=== PATIENT | female | born 2000 | race Caucasian/White ===

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

== ENCOUNTER 2019-08-30 14:56 | Emergency (ER) | payer MEDICAID, SELFPAY ==
[2019-08-30 14:57] VITALS: BP 122/36; PULSE 89; RESP 16; TEMP 36.6; O2SAT 97; BMI 32.8
--- NOTE | 2019-08-30 15:39 | CT_ITS ---
STUDY: CT BRAIN WITHOUT CONTRAST REASON FOR EXAM: Female, 19 years old. HEADACHE X3 MONTHS W/ VISUAL CHANGES RADIATION DOSAGE (If Supplied By Facility): CTDIvol = ( 44.99 ) mGy, DLP = ( 745.49 ) mGycm TECHNIQUE: Transaxial CT imaging of the brain was performed without administration of intravenous contrast material. Individualized dose optimization techniques were used for this CT. COMPARISON: No relevant priors. FINDINGS: Normal soft tissue structures. Normal calvarium. Normal size ventricles and extra-axial spaces for the patient''s age. Normal white matter tracts of the cerebral hemispheres. Normal basal ganglia and thalami. Normal brainstem. Normal cerebellum. There is no intracranial hemorrhage. There are no findings of an acute ischemic infarction. Normal visualized paranasal sinuses. CT/Brain/Head without Contrast IMPRESSION: Normal unenhanced CT scan of the brain. Electronically Signed: Soto Carbone DO at 16:34 EST Tel , Service support ,
--- NOTE | 2019-08-30 15:39 | EKG12_ITS ---
Test Reason : HEADACHE Blood Pressure : / mmHG Vent. Rate : 064 BPM Atrial Rate : 064 BPM P-R Int : 184 ms QRS Dur : 084 ms QT Int : 384 ms P-R-T Axes : 007 058 026 degrees QTc Int : 396 ms Normal sinus rhythm with sinus arrhythmia Normal ECG Confirmed by AUGUSTINE VÁZQUEZ, ANT ([id number]), city editor ALONDRA LYON ([id number]) on 09/01/2019 9:51:15 AM Referred By: LYNDON Confirmed By:ANT BRADSHAW MD
--- NOTE | 2019-08-30 15:41 | ED.VISSUMM ---
- ER Visit Summary Date of Service: 08/30/19 Chief Complaint: Headache History of Present Illness: The patient is a 19 F with a headache. Symptoms have been going on for about 3 months. Symptoms are daily. Pain is worse in the left frontal region. Worse with light and noise. Sometimes she feels like her left eye is popping out and she sees floating things. She tried [id number] medications with no improvement. Patient also states that sometimes she wakes up feeling short of breath. She has no history of heart or lung disease. No history of blood clots. Not currently . She has no symptoms during the day. No other exertional symptoms. Physical Examination: Afebrile and vital signs unremarkable. HEENT exam including funduscopic exam within normal limits. Neck is nontender with good range of motion. Heart regular rate and rhythm with no murmurs. Lungs clear. Extremities nontender with no edema. Skin appears normal. Test Results: CT brain and EKG pending. Emergency Department Course and Treatment: Patient likely has a migraine. I do not believe her nighttime respiratory symptoms are related directly to the headache. She may have sleep apnea and this could be contributing to headache. We will check an EKG. Lungs are clear. PERC negative. Will treat with migraine meds. EKG showed sinus rhythm at a rate of 69. No sign of ischemia or infarction. CT brain negative. On reevaluation, patient is feeling better. She will be discharged to follow-up with her PCP. Treatment Plan: As above Disposition: Discharge Impression: 1. Headache This note was generated with [employer] dictation software. It may contain incorrect words, spelling, and punctuation that were not noted in review of the chart prior to signing ED Disposition - Plan for ED Patient: Referrals: Denver Gill MD [Primary Care Provider] -
[2019-08-30] MEDS: DiphenhydrAMINE 50 MG/ML Syringe 25 MG IV (15:51)
[2019-08-30] MEDS: Ketorolac 30 MG/ML Syringe IV (15:51)
[2019-08-30] MEDS: 0.9% Normal Saline 1,000 ML 999 ML IV (15:51)
--- NOTE | 2019-08-30 17:22 | ED.DEP ---
ED Disposition - Plan for ED Patient: Instructions: HEADACHE, Unspecified Referrals: Denver Gill MD [Primary Care Provider] -
== END 2019-08-30 17:36 | disposition home or self-care (01) ==
LOC: ED 15:49
PROVIDERS: Emergency Provider Emergency Medicine; PCP Family Medicine
DX: R51 Headache (principal); R06.02 Shortness of breath; Z72.0 Tobacco use
CPT/HCPCS: 70450; 93005; 96361; 96374; 96375; 99283; J7030

== ENCOUNTER 2019-09-01 18:03 | Emergency (ER) | payer MEDICAID, SELFPAY ==
[2019-09-01 18:04] VITALS: BP 153/74; PULSE 97; RESP 17; TEMP 37.1; O2SAT 97; BMI 32.6
[2019-09-01 19:35] LABS: Absolute Lymphocyte Count 2.48 X10^3/uL (0.83-4.51); Absolute Neutrophil Count 8.2 X10^3/uL (2.0-7.7); Basophil% 0.8 % (0-1); Eosinophil# 0.56 X10^3/uL; Eosinophils% 4.6 % (0-5); Hemoglobin 13.8 g/dL (12.0-15.0); Lymphocyte # 2.48 X10^3/ul (4.0); Lymphocyte % 20.3 % (19-41); Mean Corp Hgb Conc 32.9 g/dL (32-36); Mean Corpuscular Hgb 30.5 pg (27.0-32.0); Mean Corpuscular Volume 92.7 fL (81-99); Mean Platelet Vol. 10.6 fl (6.2-12.0); Monocyte# 0.84 X10^3/uL; Monocyte% 6.9 % (0-10); NRBC Flagged by Analyzer 0 % (0-5); Neutrophil # 8.19 X10^3/uL (2.7-7.7); Platelet Count 288 K/mm3 (150-450); RBC Distribution Width CV 12.1 % (11.6-14.6); RBC Distribution Width SD 41.3 fl (35.1-43.9); Red Blood Count 4.53 M/mm3 (4.2-5.4); White Blood Count 12.2 K/mm3 (4.4-11.0)
[2019-09-01] MEDS: Metoclopramide 10 MG/2 ML Vial IV (19:43)
[2019-09-01] MEDS: DiphenhydrAMINE 50 MG/ML Syringe 25 MG IV (19:43)
[2019-09-01] MEDS: Ketorolac 30 MG/ML Syringe IV (19:43)
[2019-09-01] MEDS: 0.9% Normal Saline 1,000 ML 999 ML IV (19:43)
[2019-09-01 19:51] LABS: ALB/GLOB Ratio 0.9 RATIO (0.9-2.4); AST(SGOT) 12 U/L (15-37); Alanine Aminotransfer ALT/SGPT 24 U/L (13-56); Albumin, Serum 3.5 g/dL (3.2-5.0); Alkaline Phosphatase 86 U/L (45-117); Anion Gap 6 (5-15); BUN 11 mg/dL (7-18); BUN/Creat Ratio 14.6 RATIO (10-20); Calcium,Total 8.8 mg/dL (8.5-10.1); Chloride 111 mmol/L (98-107); Creatinine, Serum 0.75 mg/dL (0.55-1.02); EST Glomerular Filtration Rate 104 mL/min (>60); Est Glom Filt Rate - Afr Amer 126 mL/min (>60); Estimated Creatinine Clearance 98.98 ml/min; Globulin 3.7 g/dL (2.2-4.2); Glucose 90 mg/dL (74-106); Potassium 3.5 mmol/L (3.5-5.1); Protein, Total 7.2 g/dL (6.4-8.2); Sodium Level 142 mmol/L (136-145)
--- NOTE | 2019-09-01 20:51 | ED.VISSUMM ---
- ER Visit Summary Date of Service: 09/01/19 Chief Complaint: Headache History of Present Illness: The patient is a 19 F who presents with a headache that began 2 days ago. Patient was seen here at that time and had a head CT. Patient states it was normal and she was feeling better and was discharged home. Patient states her headache has returned. Patient states the pain is over the frontal area. Patient states the pain is worse with light and with loud noises. Patient admits to some nausea and vomiting. Patient admits to a fever of 102.4 at home. Patient denies any neck pain or back pain. Patient denies any paresthesias or weakness. Physical Examination: Vital signs are stable. Patient is afebrile. Patient is in no acute distress. Pupils are equal, round, and reactive to light bilaterally. Extraocular muscles are intact. Conjunctiva is clear. Oral mucosa is pink and moist. Neck is supple. Trachea is midline. There is no JVD. There is full range of motion. There is no meningismus. Heart was regular rate and rhythm. Lungs are clear and equal bilaterally. Abdomen is soft. Bowel sounds are normal. There is no tenderness. Cranial nerves II through XII are intact. There are no focal motor or sensory deficits noted. Test Results: CBC shows a slight leukocytosis of 12.2. Comprehensive metabolic profile was within normal limits. Influenza swab was negative. Emergency Department Course and Treatment: Patient was given IV fluids, Reglan, Benadryl, and Toradol here. Patient felt better on reevaluation. Patient was instructed to rest in a dark quiet room. Patient was instructed to follow-up with her primary care physician in 5 to 7 days. Patient understood and was agreeable with the plan. All questions were answered. Disposition: Discharge home Impression: Headache This note was generated with [employer] dictation software. It may contain incorrect words, spelling, and punctuation that were not noted in review of the chart prior to signing ED Disposition - Plan for ED Patient: Disposition: Home or Assisted Living Diagnosis: Headache Instructions: HEADACHE, Unspecified Referrals: Denver Gill MD [Primary Care Provider] - 3-5 Days
[2019-09-01 21:04] VITALS: BP 122/86; PULSE 75; RESP 15; O2SAT 97
== END 2019-09-01 21:00 | disposition home or self-care (01) ==
PROVIDERS: Emergency Provider Emergency Medicine; PCP Family Medicine
DX: R51 Headache (principal)
CPT/HCPCS: 80053; 85025; 87804; 96361; 96374; 96375; 99283; J7030; A4216

== ENCOUNTER 2020-05-19 17:47 | Emergency (ER) | payer MEDICAID, SELFPAY ==
[2020-05-19 17:48] VITALS: BP 137/72; PULSE 102; RESP 17; TEMP 36.4; O2SAT 99; BMI 28.7
--- NOTE | 2020-05-19 17:54 | ED.VIS.GEN ---
History of Present Illness Chief Complaint: Vag Bld, Preg Informant: Patient Onset: Today Context: Sudden Onset Current Severity: Mild Maximum Severity: Moderate Narrative: The patient is a 19-year-old female who is at approximately 14 weeks gestation that presents to the emergency department with lower abdominal cramping and vaginal bleeding. Patient states she is had some cramping for the past 4 days. She states that today, she has had some scant bleeding when she urinated. It is since resolved. She has had prior miscarriage in the past. She has had documented intrauterine with this . Her blood type is a positive. She denies any fevers or chills. She denies any abdominal trauma. Prior similar symptoms: No Recent Illness/Hospitalization: No Past Medical History - Allergies and Home Meds Allergies/Adverse Reactions: Allergies No Known Allergies Allergy (Verified 05/19/20 17:48) Primary Care Physician: Denver Gill MD [Primary Care Provider] - Prior records reviewed: Yes Past Medical History: None Surgical History: noncontributory Smoking Status: Current every day smoker Review of Systems General: Denies: Chills, Fever, Sweats Eyes: Denies: Visual changes - bilaterally, Diplopia ENT: Denies: Rhinorrhea, Sore throat Cardiovascular: Denies: Chest pain, Palpitations Respiratory: Denies: Dyspnea, Cough, Dyspnea on exertion Gastrointestinal: Denies: Abdominal pain, Nausea, Vomiting, Diarrhea, Melena, Hematochezia Genitourinary: Denies: Dysuria, Hematuria, Frequency Musculoskeletal: Denies: Back pain, Extremity Pain Skin: Denies: Rash, Wounds Neurological: Denies: Headache, Weakness, Numbness Physical Exam Vital Signs/Narrative: Vital Signs Temp Pulse Resp BP Pulse Ox 05/19/20 17:48 97.5 F L 102 H 17 137/72 H 99 Inital Vital Signs reviewed: Yes General: Well nourished, Well developed, No Acute Distress Head: Normocephalic, Atraumatic Eyes: Perrl, EOMI ENT: Moist mucous membranes, No rhinorrhea Neck: Supple, Nontender Cardiovascular: Regular rate, Regular rhythm, No murmurs Respiratory: No distress, CTA bilaterally, Chest nontender Abdomen: Soft, Nontender, Nondistended, Normal bowel sounds Back: Nontender, Normal Inspection Extremities: Nontender, No edema Skin: Normal color, No rash Neurological: Alert, Oriented x3, Cranial nerves II-XII grossly intact, Normal Strength, Normal Sensation Psychological: Normal affect, Normal Mood Diagnostic/Tx/Re-eval Abnormal Lab Results 05/19/20 18:10 Urine Color Yellow Urine Clarity Sl. Cloudy Urine pH 5.0 Ur Specific [place] 1.025 Urine Protein Negative Urine Glucose (UA) Normal Urine Ketones 5 H Urine Occult Blood 25 H Urine Nitrite Negative Urine Bilirubin Negative Urine Urobilinogen Normal Ur Leukocyte Esterase 500 H Urine RBC 0-5 SEEN Urine WBC 10-25 SEEN Ur Squamous Epith Cells 0-5 SEEN Urine Bacteria RARE Urine Mucus 0 SEEN - Medical Decision Making Patient presents with 4 days of suprapubic pain. She now has scant vaginal bleeding that is since resolved. She is approximately 15 weeks gestation. Bedside ultrasound was performed. It showed single live intrauterine . There was good activity. heart rates were in the 140s and reactive. Urine does show some evidence of infection. Quant was added. I did discuss the case with Dr. Shannon, on-call for [facility]. She is comfortable with plan for outpatient follow-up. The patient was counseled that with bleeding in , there was concern for miscarriage, but based on her ultrasound I do feel that she is safe for outpatient follow-up. Impression 1. Vaginal bleeding in 2. Cystitis ED Disposition - Plan for ED Patient: Instructions: ED Possible Miscarriage Threatened Prescriptions: Nitrofurantoin Macrocrystals [Macrobid] 100 mg PO Q12 #14 cap Prescription Printed Referrals: Mary Shannon MD [STAFF PHYSICIAN] -
[2020-05-19 18:16] LABS: Mucous, Urine 0 SEEN /hpf (<or=2+)
[2020-05-19 18:18] LABS: Color, Urine Yellow (Yellow); Glucose, Dipstick Normal (Normal); Ketone-Dipstick 5 mg/dl (Negative); Leukocyte Esterase-Dipstick 500 /ul (Negative); Nitrite-Dipstick Negative (Negative); Occult Blood-Urine 25 /ul (Negative); Protein-Dipstick Negative (Negative); Specific Gravity, Urine 1.025 (1.002-1.030); Urine Bilirubin Dipstick Negative (Negative); Urine Clarity Sl. Cloudy (Clear); Urine Urobilinogen Normal (Normal)
[2020-05-19 18:28] LABS: Bacteria RARE /hpf (None Seen); Red Blood Cells-Urine 0-5 SEEN /hpf (0-5); Squamous Epithelial Cells - UA 0-5 SEEN /hpf (5-10); White Blood Cells 10-25 SEEN /hpf (0-5)
[2020-05-19] MEDS: Nitrofurantoin Macrocrystals 100 MG Capsule PO (18:55)
[2020-05-19 18:57] VITALS: BP 101/63; PULSE 81; RESP 17; O2SAT 99
--- NOTE | 2020-05-19 18:57 | ED.RN ---
IV DC'ED, CATHETER INTACT, SMALL GAUZE DRESSING PLACED. DISCHARGE INSTRUCTIONS GIVEN TO AND REVIEWED WITH PATIENT, PATIENT DENIES QUESTIONS OR CONCERNS AND VOICES UNDERSTANDING OF DISCHARGE INSTRUCTIONS. PT AMBULATES OUT OF ROOM WITHOUT DIFFICULTY.
== END 2020-05-19 18:58 | disposition home or self-care (01) ==
LOC: ED 18:46
PROVIDERS: Emergency Provider Emergency Medicine; PCP Family Medicine
DX: O20.9 Hemorrhage in early pregnancy, unspecified (principal); O23.12 Infections of bladder in pregnancy, second trimester; O99.332 Smoking (tobacco) complicating pregnancy, second trimester; Z3A.14 14 weeks gestation of pregnancy
CPT/HCPCS: 81001; 84702; 99282; A4216

== ENCOUNTER 2020-07-03 19:49 | Emergency (ER) | payer MEDICAID, SELFPAY ==
[2020-07-03 19:49] VITALS: BP 125/65; PULSE 102; RESP 19; TEMP 35.9; O2SAT 99; BMI 29.1
--- NOTE | 2020-07-03 20:24 | ED.DCSUM_ITS ---
History of Present Illness Chief Complaint: Cough Informant: Patient Narrative: 20-year-old female on her fourth at approximately 21 weeks sees [facility]ESS SERVICES LIBRARIAN. She tells me that she has had a frontal headache for the past 10 days. It is not positional. There is no neck pain. No fevers. She is developed a cough for the past 5 days. No rhinorrhea no ear pain. She notes a bit of a sore throat today. No diarrhea no shortness of breath. Cough is nonproductive. No rashes. Patient denies any complications with this so far. She tells me that she spoke to her ACCESS SERVICES LIBRARIAN's office and they told her to come to emergency and be screened for Covid. Past Medical History - Allergies and Home Meds Allergies/Adverse Reactions: Allergies No Known Allergies Allergy (Verified 05/19/20 17:48) Primary Care Physician: Denver Gill MD [Primary Care Provider] - Prior records reviewed: Yes Past Medical History: None Surgical History: noncontributory Smoking Status: Never smoker Drugs: None Review of Systems General: Denies: Chills, Fever, Sweats Eyes: Denies: Visual changes - bilaterally, Diplopia ENT: Reports: Sore throat. Denies: Rhinorrhea Cardiovascular: Denies: Chest pain, Palpitations Respiratory: Reports: Cough. Denies: Dyspnea, Dyspnea on exertion Gastrointestinal: Denies: Abdominal pain, Nausea, Vomiting, Diarrhea, Melena, Hematochezia Genitourinary: Denies: Dysuria, Hematuria, Frequency Musculoskeletal: Denies: Back pain, Extremity Pain Skin: Denies: Rash, Wounds Neurological: Reports: Headache. Denies: Weakness, Numbness Physical Exam Vital Signs/Narrative: Vital Signs Temp Pulse Resp BP Pulse Ox 07/03/20 19:49 96.7 F L 102 H 19 H 125/65 H 99 Inital Vital Signs reviewed: Yes General: Well nourished, Well developed, No Acute Distress Head: Normocephalic, Atraumatic Eyes: Perrl, EOMI ENT: Moist mucous membranes, No rhinorrhea Neck: Supple, Nontender Cardiovascular: Regular rate, Regular rhythm, No murmurs Respiratory: No distress, CTA bilaterally, Chest nontender Abdomen: Soft, Nontender, Nondistended, Normal bowel sounds Back: Nontender, Normal Inspection Extremities: Nontender, No edema Skin: Normal color, No rash Neurological: Alert, Oriented x3, Cranial nerves II-XII grossly intact, Normal Strength, Normal Sensation Psychological: Normal affect, Normal Mood Diagnostic/Tx/Re-eval Laboratory Last Values Urine Color Yellow (Yellow) 07/03/20 20:29 Urine Clarity Sl. Cloudy (Clear) 07/03/20 20:29 Urine pH 6.5 (5.0 - 8.0) 07/03/20 20: Ur Specific [place] 1.010 (1.002-1.030) 07/03/20 20:29 Urine Protein Negative mg/dl (Negative) 07/03/20 20:29 Urine Glucose (UA) Normal mg/dl (Normal) 07/03/20 20: Urine Ketones Negative mg/dl (Negative) 07/03/20 20: Urine Occult Blood 10 /ul (Negative) H 07/03/20 20:29 Urine Nitrite Negative (Negative) 07/03/20 20: Urine Bilirubin Negative mg/dL (Negative) 07/03/20 20: Urine Urobilinogen Normal mg/dl (Normal) 07/03/20 20:29 Ur Leukocyte Esterase 500 /ul (Negative) H 07/03/20 20:29 Urine RBC 0-5 SEEN /hpf (0-5) 07/03/20 20: Urine WBC 50-100 SEEN /hpf (0-5) 07/03/20 20:29 Ur Squamous Epith Cells 0-5 SEEN /hpf (5-10) 07/03/20 20: Amorphous Sediment 1+ URATE 07/03/20 20: Urine Bacteria RARE /hpf (None Seen) 07/03/20 20: Urine Mucus 0 SEEN /hpf (<or=2+) 07/03/20 20:29 - Medical Decision Making Urine shows some white blood cells and rare bacteria. She is asymptomatic and some risk of this for culture. Her COVID-19 test is negative. Patient be discharged home with supportive care return if worsening or concerns ED Disposition - Plan for ED Patient: Disposition: Home or Assisted Living Diagnosis: Second trimester , URI (upper respiratory infection) Instructions: ED URI, Viral, No Abx (Adult) Referrals: Denver Gill MD [Primary Care Provider] - As Needed
[2020-07-03 20:37] LABS: Mucous, Urine 0 SEEN /hpf (<or=2+)
[2020-07-03 20:55] LABS: Color, Urine Yellow (Yellow); Glucose, Dipstick Normal (Normal); Ketone-Dipstick Negative (Negative); Leukocyte Esterase-Dipstick 500 /ul (Negative); Nitrite-Dipstick Negative (Negative); Occult Blood-Urine 10 /ul (Negative); Protein-Dipstick Negative (Negative); Urine Bilirubin Dipstick Negative (Negative); Urine Clarity Sl. Cloudy (Clear); Urine Urobilinogen Normal (Normal); Urine pH 6.5 (5.0 - 8.0)
[2020-07-03 21:10] LABS: Amorphous Sediment 1+ URATE; Bacteria RARE /hpf (None Seen); Red Blood Cells-Urine 0-5 SEEN /hpf (0-5); Squamous Epithelial Cells - UA 0-5 SEEN /hpf (5-10); White Blood Cells 50-100 SEEN /hpf (0-5)
[2020-07-03 22:13] VITALS: BP 120/60; PULSE 97; RESP 18; O2SAT 99
== END 2020-07-03 22:14 | disposition home or self-care (01) ==
PROVIDERS: Emergency Provider Emergency Medicine; PCP Family Medicine
DX: O99.512 Diseases of the respiratory system complicating pregnancy, second trimester (principal); J06.9 Acute upper respiratory infection, unspecified; Z3A.21 21 weeks gestation of pregnancy
CPT/HCPCS: 81001; 87086; 87088; 87426; 99282

== ENCOUNTER 2020-08-27 02:00 | Outpatient (CLI) | payer MEDICAID, SELFPAY ==
[2020-08-27 02:23] VITALS: BP 114/68; PULSE 90; PULSE 93; TEMP 36.3; O2SAT 99
[2020-08-27 02:31] VITALS: BMI 31.5
[2020-08-27 03:04] LABS: Bacteria 0 SEEN /hpf (None Seen); Red Blood Cells-Urine 0 SEEN /hpf (0-5)
[2020-08-27 03:11] LABS: Absolute Lymphocyte Count 2.97 X10^3/uL (0.83-4.51); Absolute Neutrophil Count 12.3 X10^3/uL (2.0-7.7); Basophil# 0.09 X10^3/uL; Basophil% 0.5 % (0-1); Eosinophil# 0.36 X10^3/uL; Eosinophils% 2.1 % (0-5); Lymphocyte # 2.97 X10^3/ul (4.0); Lymphocyte % 17.4 % (19-41); Mean Corp Hgb Conc 32.4 g/dL (32-36); Mean Corpuscular Hgb 30.6 pg (27.0-32.0); Mean Corpuscular Volume 94.7 fL (81-99); Mean Platelet Vol. 10.1 fl (6.2-12.0); Monocyte# 0.97 X10^3/uL; Monocyte% 5.7 % (0-10); NRBC Flagged by Analyzer 0 % (0-5); Platelet Count 253 K/mm3 (150-450); RBC Distribution Width CV 11.9 % (11.6-14.6); RBC Distribution Width SD 41.6 fl (35.1-43.9); Red Blood Count 3.59 M/mm3 (4.2-5.4); White Blood Count 17.1 K/mm3 (4.4-11.0)
[2020-08-27 03:14] LABS: Color, Urine Yellow (Yellow); Glucose, Dipstick Normal (Normal); Ketone-Dipstick 15 mg/dl (Negative); Leukocyte Esterase-Dipstick 100 /ul (Negative); Nitrite-Dipstick Negative (Negative); Occult Blood-Urine Negative /ul (Negative); Protein-Dipstick 15 mg/dl (Negative); Specific Gravity, Urine 1.025 (1.002-1.030); Urine Bilirubin Dipstick Negative (Negative); Urine Clarity Sl. Cloudy (Clear); Urine Urobilinogen 1 mg/dl (Normal)
[2020-08-27 03:25] LABS: Prothrombin Time (Protime)PT. 12.8 SECONDS (11.7-14.9)
[2020-08-27 03:26] LABS: Mucous, Urine 2+ /hpf (<or=2+); Squamous Epithelial Cells - UA 25-50 SEEN /hpf (5-10); White Blood Cells 5-10 SEEN /hpf (0-5)
[2020-08-27 03:26] LABS: Partial Thromboplast Time 29.4 Seconds (24.1-36.2)
[2020-08-27 03:43] LABS: Fibrinogen 538 mg/dl (203-444)
[2020-08-27 03:46] LABS: Fetal Fibronectin Negative
[2020-08-27] MEDS: Betamethasone/Betamethasone 30 MG/5 ML Vial 12 MG IM (04:38)
--- NOTE | 2020-08-31 13:18 | OB.TRI.HP_ITS ---
History of Present Illness Date of Service: 08/27/20 Was patient seen by the physician?: No Reason For Visit: CRAMPING AND BLEEDING Final JERRY Source: US <20 weeks Allergies No Known Allergies Allergy (Verified 08/28/20 10:35) Laboratory Studies: Laboratory Tests 08/27/20 08/27/20 08/27/20 Range/Units 02:55 02:41 02:41 WBC (4.4-11.0) K/mm3 RBC (4.2-5.4) M/mm3 Hgb (12.0-15.0) g/dL Hct (37-47) % MCV (81-99) fL MCH (27.0-32.0) pg MCHC (32-36) g/dL RDW Std Deviation (35.1-43.9) fl RDW Coeff of Bairon (11.6-14.6) % Plt Count (150-450) K/mm3 MPV (6.2-12.0) fl Immature Gran % (Auto) (0.0-0.9) % Neut % (Auto) (47-70) % Lymph % (Auto) (19-41) % [place] % (Auto) (0-10) % Eos % (Auto) (0-5) % Baso % (Auto) (0-1) % Absolute Neuts (auto) (2.0-7.7) X10^3/uL Absolute Lymphs (auto) (0.83-4.51) X10^3/uL Nucleated RBC % (0-5) % PT 12.8 (11.7-14.9) SECONDS INR 1.0 APTT 29.4 (24.1-36.2) Seconds Fibrinogen 538 H (203-444) mg/dl Urine Color Yellow (Yellow) Urine Clarity Sl. Cloudy (Clear) Urine pH 5.0 (5.0 - 8.0) Ur Specific [place] 1.025 (1.002-1.030) Urine Protein 15 H (Negative) mg/dl Urine Glucose (UA) Normal (Normal) mg/dl Urine Ketones 15 H (Negative) mg/dl Urine Occult Blood Negative (Negative) /ul Urine Nitrite Negative (Negative) Urine Bilirubin Negative (Negative) mg/dL Urine Urobilinogen 1 H (Normal) mg/dl Ur Leukocyte Esterase 100 H (Negative) /ul Urine RBC 0 SEEN (0-5) /hpf Urine WBC 5-10 SEEN (0-5) /hpf Ur Squamous Epith Cells 25-50 SEEN (5-10) /hpf Urine Bacteria 0 SEEN (None Seen) /hpf Urine Mucus 2+ (<or=2+) /hpf Fibronectin Negative 08/27/20 Range/Units 02:41 WBC 17.1 H (4.4-11.0) K/mm3 RBC 3.59 L (4.2-5.4) M/mm3 Hgb 11.0 L (12.0-15.0) g/dL Hct 34.0 L (37-47) % MCV 94.7 (81-99) fL MCH 30.6 (27.0-32.0) pg MCHC 32.4 (32-36) g/dL RDW Std Deviation 41.6 (35.1-43.9) fl RDW Coeff of Bairon 11.9 (11.6-14.6) % Plt Count 253 (150-450) K/mm3 MPV 10.1 (6.2-12.0) fl Immature Gran % (Auto) 2.300 H (0.0-0.9) % Neut % (Auto) 72.0 H (47-70) % Lymph % (Auto) 17.4 L (19-41) % [place] % (Auto) 5.7 (0-10) % Eos % (Auto) 2.1 (0-5) % Baso % (Auto) 0.5 (0-1) % Absolute Neuts (auto) 12.3 H (2.0-7.7) X10^3/uL Absolute Lymphs (auto) 2.97 (0.83-4.51) X10^3/uL Nucleated RBC % 0 (0-5) % PT (11.7-14.9) SECONDS INR APTT (24.1-36.2) Seconds Fibrinogen (203-444) mg/dl Urine Color (Yellow) Urine Clarity (Clear) Urine pH (5.0 - 8.0) Ur Specific [place] (1.002-1.030) Urine Protein (Negative) mg/dl Urine Glucose (UA) (Normal) mg/dl Urine Ketones (Negative) mg/dl Urine Occult Blood (Negative) /ul Urine Nitrite (Negative) Urine Bilirubin (Negative) mg/dL Urine Urobilinogen (Normal) mg/dl Ur Leukocyte Esterase (Negative) /ul Urine RBC (0-5) /hpf Urine WBC (0-5) /hpf Ur Squamous Epith Cells (5-10) /hpf Urine Bacteria (None Seen) /hpf Urine Mucus (<or=2+) /hpf Fibronectin Physical Exam Vitals: Vital Signs Temp Pulse BP Pulse Ox 97.4 F L 93 114/68 99 08/27/20 02:23 08/27/20 02:23 08/27/20 02:23 08/27/20 02:23 NST - FHR Rate Baby A Baseline: 115 Variability:: Moderate Accelerations:: 15 x 15 Decelerations:: Variable NST Reactive:: Yes Uterine Activity:: quiet Impression/Plan Reactive NST for threatened PTL
== END 2020-08-27 04:45 | disposition home or self-care (01) ==
PROVIDERS: PCP Family Medicine; Visit Provider Obstetrics & Gynecology
DX: O60.00 Preterm labor without delivery, unspecified trimester (principal); Z3A.00 Weeks of gestation of pregnancy not specified
CPT/HCPCS: 36415; 59025; 59050; 81001; 82731; 85025; 85384; 85610; 85730; 87086; 87088; 96372; 99218; G0378; J0702

== ENCOUNTER 2020-08-28 10:07 | Outpatient (CLI) | payer MEDICAID, SELFPAY ==
[2020-08-27 02:31] VITALS: BMI 31.5
[2020-08-28 10:38] VITALS: BP 108/57; PULSE 93; TEMP 36.7
[2020-08-28 10:39] VITALS: BMI 31.4
[2020-08-28] MEDS: Betamethasone/Betamethasone 30 MG/5 ML Vial 12 MG IM (11:12)
== END 2020-08-28 11:15 | disposition home or self-care (01) ==
LOC: LAB 10:10 → WPOUT 10:28 → WP 10:30
PROVIDERS: PCP Family Medicine; Referring Provider Obstetrics & Gynecology; Visit Provider Obstetrics & Gynecology
DX: O60.00 Preterm labor without delivery, unspecified trimester (principal); Z3A.00 Weeks of gestation of pregnancy not specified
CPT/HCPCS: 96372; 99218; G0378; J0702

== ENCOUNTER 2020-09-13 20:02 | Outpatient (CLI) | payer MEDICAID, SELFPAY ==
[2020-09-13 20:22] VITALS: O2SAT 98
[2020-09-13 20:23] VITALS: BP 128/76; PULSE 104; TEMP 37.1
--- NOTE | 2020-09-13 20:41 | OB.TRI.NOTE ---
- Problem List (1) 31 weeks gestation of Status: Acute (2) Amniotic fluid leaking Status: Acute (3) Two vessel umbilical cord in prince , antepartum Status: Acute (4) Late care affecting Status: Acute History of Present Illness Date of Service: 09/13/20 Was patient seen by the physician?: No Reason For Visit: R/O LABOR Date of Service: 09/13/20 Final JERRY: 11/13/20 Final JERRY Source: US <20 weeks Gestational age: 31 Weeks and 2 Days History of Present Illness: Patient presented to triage area with complaints of leaking fluid since earlier today. Positive movement. Reports constant cramping as well. Allergies No Known Allergies Allergy (Verified 08/28/20 10:35) Review of Systems Constitutional: Denies: Chills, Fever, Weight Change HEENT: Denies: Head Aches, Sinus Congestion, Sinus Drainage Cardiovascular: Denies: Chest Pain, Palpitations Respiratory: Denies: Cough, Shortness of breath at rest, Sputum production Gastrointestinal: Denies: Abdominal Pain, Nausea, Vomiting Genitourinary: Denies: Dysuria Neurological: Denies: Numbness, Tingling, Focal weakness Psychiatric: Denies: Anxiety, Depression, Homicidal Ideations, Suicidal Ideations Physical Exam Vitals: Vital Signs Temp Pulse BP Pulse Ox 98.8 F 104 H 128/76 H 98 09/13/20 20:23 09/13/20 20:23 09/13/20 20:23 09/13/20 20:22 General: Alert HEENT: Atraumatic Cardiovascular: Regular rate Lungs: Normal air movement Abdomen: Soft, Non Tender, Gravid Neurological: Cranial nerves II-XII grossly intact NST - FHR Rate Baby A Baseline: 130 Variability:: Moderate Accelerations:: 10 x 10 NST Reactive:: Appropriate for gestational age FHR Category:: Category I Uterine Activity:: NONE per TOCO or palpation Impression/Plan Patient is a at 31.2 weeks gestation with leaking fluid and cramps NST reactive, no contractions or irritability per TOCO ROM plus collected and sent- negative results Genital culture obtained and sent due to increased discharge D/C home with follow up in office Dr. Glass notified and agrees with plan of care
[2020-09-13 21:13] LABS: ROM Internal Control Test YES-OK TO RESULT pt. (Internal QC); ROM Patient Test Negative (Negative)
[2020-09-13 23:58] VITALS: BMI 31.8
== END 2020-09-13 22:20 | disposition home or self-care (01) ==
LOC: WPOUT 20:04 → WP 20:05
PROVIDERS: PCP Family Medicine; Visit Provider Advanced Practice Midwife
DX: Z34.83 Encounter for supervision of other normal pregnancy, third trimester (principal)
CPT/HCPCS: 59025; 59050; 84112; 87070; 87205; 99218; G0378

== ENCOUNTER 2020-11-12 17:55 | Outpatient (CLI) | payer MEDICAID, SELFPAY ==
[2020-11-12 18:04] VITALS: BP 119/73; PULSE 97; TEMP 36.8
[2020-11-12 18:12] VITALS: BMI 33.9
--- NOTE | 2020-11-21 12:04 | OB.TRI.NOTE ---
HPI - General General Date of Admission: 08/13/17 HPI Narrative JARRED SANCHEZ, is a 20 F who presents with ctxs. PFSH Medical History (Updated 11/21/20 @ 12:[address] Bo John MD) depression Home Medications PNV cmb#95-ferrous fumarate-FA 1 ea PO DAILY 05/19/20 [History Last Taken 11/14/20 10:00] acetaminophen 1,000 mg PO Q8H PRN PRN #0 tab 11/16/20 [Rx Last Taken Unknown] ibuprofen 600 mg PO Q6H PRN PRN #0 tab 11/16/20 [Rx Last Taken Unknown] Allergy/AdvReac Type Severity Reaction Status Date / Time No Known Allergies Allergy Verified 09/13/20 23:58 Surgical History (Updated 11/15/20 @ 07:58 by Ana Cristina Rojo) History of surgery Social History Smoking Status: Former smoker History Elective abortions Hx Para 2 Spontaneous abortions Hx # Term Pregnancies Ectopic pregnancies Hx # Pregnancies Multiple births # of living children Assessment & Plan Assessment/Plan (1) False labor: Status: Acute Code(s): O47.9 - False labor, unspecified Plan: NST for false labor
== END 2020-11-12 19:20 | disposition home or self-care (01) ==
LOC: WPOUT 17:59 → WP 18:00
PROVIDERS: PCP Family Medicine; Visit Provider Obstetrics & Gynecology
DX: O47.9 False labor, unspecified (principal); Z3A.00 Weeks of gestation of pregnancy not specified
CPT/HCPCS: 59025; 59050; 99218; G0378

== ENCOUNTER 2020-11-15 07:00 | Inpatient (IN) | payer MEDICAID, SELFPAY ==
[2020-11-15] VITALS (42 sets, daily range): BP systolic 94–124; BP diastolic 51–82; PULSE 49–92; RESP 16; TEMP 36.1–36.9; O2SAT 90–100; BMI 33.8
[2020-11-15] MEDS: Oxytocin 30 units/NS 500 ml 30 UNITS/500 ML IV.SOLN IV (07:54)
[2020-11-15] MEDS: Lactated Ringers 1,000 ML 50 ML IV (07:55)
[2020-11-15 08:02] LABS: Absolute Lymphocyte Count 1.84 X10^3/uL (0.83-4.51); Absolute Neutrophil Count 8.6 X10^3/uL (2.0-7.7); Basophil# 0.05 X10^3/uL; Basophil% 0.4 % (0-1); Eosinophils% 1.7 % (0-5); Hematocrit 31.6 % (37-47); Hemoglobin 9.9 g/dL (12.0-15.0); Lymphocyte # 1.84 X10^3/ul (0.83-4.51); Lymphocyte % 15.8 % (19-41); Mean Corp Hgb Conc 31.3 g/dL (32-36); Mean Corpuscular Volume 86.1 fL (81-99); Mean Platelet Vol. 10.9 fl (6.2-12.0); Monocyte% 6.9 % (0-10); NRBC Flagged by Analyzer 0 % (0-5); Neutrophil # 8.61 X10^3/uL (2.7-7.7); Neutrophil % 73.8 % (47-70); Platelet Count 261 K/mm3 (150-450); Red Blood Count 3.67 M/mm3 (4.2-5.4); White Blood Count 11.7 K/mm3 (4.4-11.0)
[2020-11-15] MEDS: 0.9% Normal Saline Single 100 ML IV.SOLN. INTRA-UTER (08:35)
--- NOTE | 2020-11-15 08:49 | HP.PCM.OB_ITS ---
HPI - General General Date of Admission: 11/15/20 HPI Narrative JARRED SANCHEZ, is a 20 F who presents [facility] Medical History (Updated 11/15/20 @ 16:50 by Katia Mireles CNM) depression Home Medications PNV cmb#95-ferrous fumarate-FA 1 ea PO DAILY 05/19/20 [History Last Taken 11/14/20 10:00] cyclobenzaprine [Flexeril] 5 mg PO QHS PRN 11/15/20 [History Last Taken 11/13/20 20:30] Allergy/AdvReac Type Severity Reaction Status Date / Time No Known Allergies Allergy Verified 09/13/20 23:58 Surgical History (Updated 11/15/20 @ 07:58 by Ana Cristina Rojo) History of surgery Social History Smoking Status: Former smoker History Elective abortions Hx Para 2 Spontaneous abortions Hx # Term Pregnancies Ectopic pregnancies Hx # Pregnancies Multiple births # of living children Vital Signs Vital Signs Vital Signs: 11/15/20 07:41 11/15/20 07:45 11/15/20 08:20 Temperature 98.2 F Pulse Rate 76 77 76 Blood Pressure 104/63 112/69 BP Systolic 104 112 BP Diastolic 63 69 Pulse Ox 97
--- NOTE | 2020-11-15 08:50 | HP.PCM.OB_ITS ---
HPI - General General Date of Admission: 11/15/20 HPI Narrative JARRED SANCHEZ, is a 20 F who presents for elective induction of labor. complicated by 2 vessel umbilical cord. [facility] Medical History (Updated 11/15/20 @ 16:50 by Katia Mireles CNM) depression Home Medications PNV cmb#95-ferrous fumarate-FA 1 ea PO DAILY 05/19/20 [History Last Taken 10:00] cyclobenzaprine [Flexeril] 5 mg PO QHS PRN 11/15/20 [History Last Taken 11/13/20 20:30] Allergy/AdvReac Type Severity Reaction Status Date / Time No Known Allergies Allergy Verified 09/13/20 23:58 Surgical History (Updated 11/15/20 @ 07:58 by Ana Cristina Rojo) History of surgery Social History Smoking Status: Former smoker History Elective abortions Hx Para 2 Spontaneous abortions Hx # Term Pregnancies Ectopic pregnancies Hx # Pregnancies Multiple births # of living children NST FHR Rate Baby A Baseline: 125 Variability:: Moderate Accelerations:: 15 x 15 Decelerations:: None FHR Category:: Category I Uterine Activity:: Every 4 minutes Vital Signs Vital Signs Vital Signs: 11/15/20 07:41 11/15/20 07:45 11/15/20 08:20 Temperature 98.2 F Pulse Rate 76 77 76 Blood Pressure 104/63 112/69 BP Systolic 104 112 BP Diastolic 63 69 Pulse Ox 97 Physical Exam Const alert, oriented x3 and no apparent distress HEENT normocephalic Head and Scalp: atraumatic Neck full ROM Resp normal respiratory effort Cardio regular rate and regular rhythm GI non-tender GI Narrative: Gravid appearance of the vagina normal Manual OB Exam: presentation cephalic, dilated 2.5. Godinez cathetered placed transcervically, patient tolerated well, effaced 70 and station -2 Amniotic Fluid: no amniotic fluid noted Extremity normal to inspection, full ROM and no clubbing, cyanosis or edema Neuro deep tendon reflexes 2+ bilaterally Psych mental status grossly normal Assessment & Plan Assessment/Plan (1) Elective induction of labor planned: Status: Acute (2) Two vessel umbilical cord in prince , antepartum: Status: Acute Code(s): O09.899 - Supervision of other high risk pregnancies, unspecified trimester Plan: 1) Admit to labor and delivery 2) IV and routine labs 3) Continuous EFM 4) Pitocin and godinez for cervical ripening 5) Planning unmedicated labor 6) collaborative physician
[2020-11-15 12:26] LABS: Amphetamine Urine VISTA NEGATIVE (<1000 ng/mL); Barbiturate Urine VISTA NEGATIVE (< 200 ng/mL); Benzodiazepine Urine VISTA NEGATIVE (< 200 ng/mL); Cocaine Urine VISTA NEGATIVE (< 300 ng/mL); Ecstacy Urine VISTA NEGATIVE (< 500 ng/mL); Methadone Urine VISTA NEGATIVE (< 300 ng/mL); PCP Urine VISTA NEGATIVE (< 25 ng/mL); THC Urine VISTA NEGATIVE (< 50 ng/mL); Vista UDS pH Range 6
[2020-11-15] MEDS: fentaNYL 100 MCG/2 ML Ampul IV (12:40)
--- NOTE | 2020-11-15 13:17 | PN_ITS ---
Subjective Subjective: Doing well per patient and nursing staff. Sitting up in bed. Objective Data Objective Data FHR 125, moderate variabioity, accels, no decels, category 1 TOCO: every 2-3 minutes, strong AROM large amount of clear fluid Vital Signs: Vital Signs Temp Pulse BP Pulse Ox 97.7 F L 69 100/58 L 97 11/15/20 12:17 11/15/20 12:17 11/15/20 12:17 11/15/20 11:38 Weight: 191 lb 4 oz Body Mass Index (BMI) 33.8 Intake & Output: Intake and Output for Last 24 Hours 11/13/20 11/14/20 11/15/20 23:59 23:59 23:59 Intake Total 127.46 / 127.46 Balance 127.46 / 127.46 Lab / Micro Data Result Diagrams: 11/15/20 07:40 Labs: Laboratory Results - last 24 hr 11/15/20 11/15/20 11/15/20 07:40 07:40 11:45 WBC 11.7 H RBC 3.67 L Hgb 9.9 L Hct 31.6 L MCV 86.1 MCH 27.0 MCHC 31.3 L RDW Std Deviation 41.0 RDW Coeff of Bair[place] 13.0 Plt Count 261 MPV 10.9 Immature Gran % (Auto) 1.400 H Neut % (Auto) 73.8 H Lymph % (Auto) 15.8 L [place] % (Auto) 6.9 Eos % (Auto) 1.7 Baso % (Auto) 0.4 Absolute Neuts (auto) 8.6 H Absolute Lymphs (auto) 1.84 Nucleated RBC % 0 Urine Opiates Screen NEGATIVE Urine Methadone Screen NEGATIVE Ur Barbiturates Screen NEGATIVE Ur Phencyclidine Scrn NEGATIVE Ur Amphetamines Screen NEGATIVE U Methamphetamin-MDMA NEGATIVE U Benzodiazepines Scrn NEGATIVE Urine Cocaine Screen NEGATIVE U Cannabinoids Screen NEGATIVE Ur Drug Screen Comment Blood Type A POSITIVE Antibody Screen NEGATIVE
[2020-11-15] MEDS: Lactated Ringers 500 ML 999 ML IV (14:28)
[2020-11-15] MEDS: fentaNYL-bupivacaine (epidural) 100 ML BAG EPIDURAL (15:19)
[2020-11-15] MEDS: Oxytocin 30 units/NS 500 ml 30 UNITS/500 ML IV.SOLN 334 UNITS IV (16:18)
--- NOTE | 2020-11-15 16:50 | EX.PCM.OBRPT ---
Problems Associated Problem List Diagnoses (1) (normal spontaneous vaginal delivery): (2) First degree perineal laceration: Report of Operation (OB) Information Final JERRY: 11/15/20 Gestational age: 40 Weeks and 0 Days Operative Information Date of Procedure: 11/15/20 Pre-Operative Diagnosis: Elective induction of labor Post-Operative Diagnosis: Type of Anesthesia: Epidural Induction Maternal Presentation: Elective Induction Type of Induction: Pitocin and Rangel Bulb Findings Presentation: Positive for Vertex and ROP Amniotic Membrane Rupture Type: Artificial Amniotic Fluid Description: Clear Placental Delivery Description: Spontaneous Placenta Disposition: [facility] Cord Vessel Description: 2 Vessels Cord Entanglement: Around neck x 2, loose Nuchal Cord Compression: Without compression Gender: Male (1 minute): 8 (5 minute): 9 Delayed Cord Clamping: Yes Esitmated Blood Loss (mL): 250 ml Medications Given Medications Given After Delivery: IV Pitocin Post Vaginal Delivery Laceration: Perineal Extension/lac and 1st degree Complications Complications: None Baby B Information Amniotic Membrane Rupture Type: Artificial Operative Information Cord Entanglement: Around neck x 2, loose Cord Vessel Description: 2 Vessels (1 minute): 8 (5 minute): 9
[2020-11-16 00:01] VITALS: BP 94/53; PULSE 81; RESP 16; TEMP 36.8
[2020-11-16] MEDS: Acetaminophen 500 MG Tablet 1000 MG PO (00:09)
[2020-11-16 04:31] VITALS: BP 99/46; PULSE 56; RESP 16; TEMP 36.6
[2020-11-16] MEDS: Ibuprofen 600 MG Tablet PO (04:34)
[2020-11-16 05:26] LABS: Hematocrit 29.9 % (37-47); Hemoglobin 9.5 g/dL (12.0-15.0); Mean Corp Hgb Conc 31.8 g/dL (32-36); Mean Corpuscular Hgb 27.9 pg (27.0-32.0); Mean Corpuscular Volume 87.7 fL (81-99); Mean Platelet Vol. 10.9 fl (6.2-12.0); Platelet Count 232 K/mm3 (150-450); RBC Distribution Width CV 12.9 % (11.6-14.6); Red Blood Count 3.41 M/mm3 (4.2-5.4); White Blood Count 12.7 K/mm3 (4.4-11.0)
[2020-11-16 08:00] VITALS: BP 115/40; PULSE 57; RESP 16; TEMP 36.1
[2020-11-16] MEDS: Prenatal Vits Tablet 1 TABLET PO (08:05)
--- NOTE | 2020-11-16 09:12 | PCM.DC ---
Discharge Instructions Outpatient Procedure Reason For Visit: VAGINAL DELIVERY Activity Discharge Activity: May Not Shower May resume sexual activity in: 6 weeks Weight Bearing Status: Weight bearing as tolerated Dressing / Incision Call your doctor if you observe: Fever of 101 or Higher, Coldness, Increased Pain, Change in Color, Inability to urinate, Inability to have a bowel movement, Using more than one pad per hour, Shortness of breath, Fainting spells, Chest pain, Increased palpitations (irregular heartbeat), Calf discomfort and Uncontrolled pain Follow Up Care Please Follow Up With: Katia Mireles CNM When: 2 weeks Test Results: Test results from this visit will be discussed in further detail at your follow-up appointment, if applicable. Discharge Plan Admission Admit Date/Time: 11/15/20 07:00 Primary Reason for Your Visit: Vaginal delivery Attending Provider: Katia Mireles Primary Care Provider: Denver Gill Discharge Orders/Prescriptions Prescriptions: New acetaminophen 500 mg Tablet 1,000 mg PO Q8H PRN PRN (Reason: Pain Score 1-10) Qty: 0 RF: 0 ibuprofen 600 mg Tablet 600 mg PO Q6H PRN PRN (Reason: Pain Score 1-10) Qty: 0 RF: 0 Continued PNV cmb#95-ferrous fumarate-FA 1 EACH tablet 1 ea PO DAILY RF: 0 Discontinued cyclobenzaprine [Flexeril] 5 mg Tablet 5 mg PO QHS PRN (Reason: Back Pain) RF: 0 Referrals: Denver Gill MD [Primary Care Provider] - Disposition Patient Disposition: Home, self care
[2020-11-16 12:00] VITALS: BP 107/63; PULSE 62; RESP 16; TEMP 36.4
--- NOTE | 2020-11-16 13:22 | PCM.PN.OB ---
Subjective Subjective: Denies complaints Objective Data Objective Data Vital Signs: Vital Signs Temp Pulse Resp BP Pulse Ox 97 F L 57 L 16 115/40 L 90 11/16/20 08:00 11/16/20 08:00 11/16/20 08:00 11/16/20 08:00 11/15/20 15:31 Oxygen Delivery Method Room Air Weight: 191 lb 4 oz Body Mass Index (BMI) 33.8 Intake & Output: Intake and Output for Last 24 Hours 11/14/20 11/15/20 11/16/20 23:59 23:59 23:59 Intake Total 1522.62 / 1522.62 Output Total 1000 / 1000 Balance 522.62 / 522.62 Lab / Micro Data Result Diagrams: 11/16/20 05:20 Labs: Laboratory Results - last 24 hr 11/16/20 05:20 WBC 12.7 H RBC 3.41 L Hgb 9.5 L Hct 29.9 L MCV 87.7 MCH 27.9 MCHC 31.8 L RDW Std Deviation 41.0 RDW Coeff of Bair[place] 12.9 Plt Count 232 MPV 10.9 Physical Exam Const alert, oriented x3 and no apparent distress HEENT normocephalic GI soft to palpation, non-tender and non-distended GI Narrative: fundus firm, mid & below umbilicus Extremity normal to inspection and no calf tenderness Assessment & Plan Assessment/Plan (1) (normal spontaneous vaginal delivery): Status: Acute Code(s): O80 - Encounter for full-term uncomplicated delivery Plan: PPD#1 Routine care
[2020-11-16 15:24] VITALS: BP 116/56; PULSE 70; RESP 16; TEMP 36.9
--- NOTE | 2020-11-16 15:37 | CASEMGMT ---
Social Work Assessment Labor and Delivery Unit Date/Time of Referral: 11/15/20, 19:08 Referred by: Katia Mireles CNM Date/Time of Intervention: 11/15/20, 14:45 Reason for Referral: History of depression, information on WIC History obtained from: MOB and MELISSA Household Composition: MOB, MELISSA and now baby. ASH has 2 other boys, ages 3 and 4, who split time between MOB and their fathers. ASH's father also lives there. MOB and MELISSA have been together for one year. Parent/Guardian Status: ASH is guardian of this baby. She coparents for her other two children with their fathers. MELISSA has two other children. He has no contact with his 7 year old, does see the almost two year old and pays child support. Medical History: MOB: Supervision of high risk , history of PPD. Baby: Born 11/15/20, 3.47kg, Apgars 8 and 9 at 1 and 5 minutes respectively. MOB states had care since 13 weeks. Educational Status: MOB finished through 11th grade, MELISSA finished high school. Financial Status: MELISSA works as a chef under, MOB stays home. Initially they stated no financial concerns, however MELISSA then brought up he pays $300 in child support and he thinks it's too much. He states had to buy a new truck with a bigger cab to fit the baby in, and now has a $560 car payment. He states has tried to get a hold of someone in child support but nobody calls him back. TRESA did look up numbers for him for Lidia and passed them on to him, also encouraged him to go on the website to see if he can work through the website to communicate to Child Support that way, since he is not getting calls back. TRESA showed MELISSA the website and where he needs to go to get the tony, and see if he can communicate that way. Infant Supplies: They have all needed supplies including diapers, clothing, car seat, crib, bassinet, bottles. ASH plans to sign up for WIC, she states she does not have any formula in the interim and they will stop at the store on the way home. Childcare/Caregivers: ASH and MELISSA are primary caregivers. They also have a lot of supportive family. Transportation: They have a truck. Programs/Agencies involved: None Children's Services/Legal issues: None Behavioral health issues: Mental Health History: FOB, none. MOB, she states had depression after a miscarriage, no PPD after having her last two children. Miscarriage was in 2014. Substance abuse history: MOB and FOB both deny. Safety concerns: No safety concerns identified. Family/Social Stressors: None identified Support Systems: MOB's father, FOB's parents and step parents, grandparents. Depression and Anxiety/Shaken Baby/Safe Sleeping/WIC/Help Me Grow: SW gave MOB information and reviewed information on all of these topics. SW also gave MOB the number for [facility] Hotline. Assessment: MOB and FOB appropriate, answered all questions. Baby out of the room for circumcision, came back to the room as SW was completing assessment. SW did not have the opportunity to observe MOB or FOB interact with the baby. Plan: Baby will go home with MOB and FOB, no further social service needs are anticipated at this time. MITCHELL Hawkins
== END 2020-11-16 17:30 | disposition home or self-care (01) | DRG 560 ==
PROVIDERS: Admitting Provider Advanced Practice Midwife; PCP Family Medicine; Visit Provider Advanced Practice Midwife
DX: O69.81X0 Labor and delivery complicated by cord around neck, without compression, not applicable or unspecified (principal); O69.89X0 Labor and delivery complicated by other cord complications, not applicable or unspecified; O70.0 First degree perineal laceration during delivery; Z3A.40 40 weeks gestation of pregnancy; Z37.0 Single live birth
CPT/HCPCS: 59025; 59050; 80307; 85025; 85027; 86850; 86900; 86901; 99218; J7120; G0378

== ENCOUNTER 2023-02-11 16:46 | Emergency (ER) | payer MEDICAID, SELFPAY ==
[2023-02-11 16:47] VITALS: BP 157/80; PULSE 102; RESP 18; TEMP 36.8; O2SAT 97; BMI 39.2
[2023-02-11 18:06] LABS: Bacteria 0 SEEN /hpf (None Seen); Color, Urine Yellow (Yellow); Glucose, Dipstick Normal (Normal); Ketone-Dipstick Negative (Negative); Leukocyte Esterase-Dipstick 25 /ul (Negative); Mucous, Urine 0 SEEN /hpf (<or=2+); Nitrite-Dipstick Negative (Negative); Occult Blood-Urine Negative /ul (Negative); Protein-Dipstick Negative (Negative); Red Blood Cells-Urine 0 SEEN /hpf (0-5); Specific Gravity, Urine 1.005 (1.002-1.030); Urine Bilirubin Dipstick Negative (Negative); Urine Clarity Clear (Clear); Urine Urobilinogen Normal (Normal); White Blood Cells 0 SEEN /hpf (0-5)
[2023-02-11 18:23] LABS: Anion Gap 6 (5-15); BUN 12 mg/dL (7-18); Calcium,Total 9.5 mg/dL (8.5-10.1); Chloride 107 mmol/L (98-107); Creatinine, Serum 0.75 mg/dL (0.55-1.02); EST Glomerular Filtration Rate 101 mL/min (>60); Est Glom Filt Rate - Afr Amer 122 mL/min (>60); Glucose 95 mg/dL (74-106); Potassium 3.8 mmol/L (3.5-5.1); Sodium Level 138 mmol/L (136-145)
--- NOTE | 2023-02-11 18:24 | EDS_ITS ---
HPI History of Present Illness Chief Complaint: Abn Labs [facility] Medical History (Updated 02/11/23 @ 18:[address] Swapnil Carrero MD) depression Home Medications vit no.95-ferrous fumarate 28 mg-folic acid 800 mcg tablet 1 ea PO DAILY Check with primary doctor 05/19/20 [History Last Taken 11/14/20 10:00] acetaminophen 500 mg tablet 1,000 mg (2 x 500 mg) PO Q8H PRN PRN Pain Score 1-10 #0 tabs 11/16/20 [Rx Last Taken Unknown] ibuprofen 600 mg tablet 600 mg PO Q6H PRN PRN Pain Score 1-10 #0 tabs 11/16/20 [Rx Last Taken Unknown] Allergy/AdvReac Type Severity Reaction Status Date / Time No Known Allergies Allergy Verified 02/11/23 16:47 Surgical History History of surgery Social History Smoking Status: Former smoker EXAM Physical Exam Const Vital Signs: 02/11/23 16:47 Temperature 98.2 F Temperature Source Temporal Pulse Rate 102 H Respiratory Rate 18 Blood Pressure 157/80 H Blood Pressure Mean 105 Pulse Ox 97 Oxygen Delivery Method Room Air [facility] Lab Data Attestation: I reviewed the patient's lab results. Lab results narrative: Basic metabolic panel is unremarkable with a normal glucose. Urine is unremarkable. Split gravity is 1.005. Labs: Laboratory Results - last 24 hr 02/11/23 17:55 Sodium 138 Potassium 3.8 Chloride 107 Carbon Dioxide 25.0 Anion Gap 6 BUN 12 Creatinine 0.75 Estim Creat Clear Calc 96.50 Est GFR (MDRD) Af Amer 122 Est GFR (MDRD) Non-Af 101 BUN/Creatinine Ratio 16.0 Glucose 95 Calcium 9.5 Urine Color Yellow Urine Clarity Clear Urine pH 7.0 Ur Specific [place] 1.005 Urine Protein Negative Urine Glucose (UA) Normal Urine Ketones Negative Urine Occult Blood Negative Urine Nitrite Negative Urine Bilirubin Negative Urine Urobilinogen Normal Ur Leukocyte Esterase 25 H Treatment and Re-Evaluation :: Sent has MyChart. Patient has slightly elevated ESR and CRP on the . White count is upper end of normal. Today the white count is 14.1 with no bandemia. This may be due to upper respiratory infection which she has. No further work- up was undertaken or needed. Discharge Plan Triage Chief Complaint: Abn Labs ED Provider: Vandana Carreroo Dx/Rx/DC Orders Clinical Impression: Leukocytosis, Intermittent abdominal pain, Upper respiratory infection, viral Instructions: ED URI, Viral, No Abx (Adult) Prescriptions: No Action PNV cmb#95-ferrous fumarate-FA 1 EACH tablet 1 ea PO DAILY acetaminophen 500 mg Tablet 1,000 mg PO Q8H PRN PRN (Reason: Pain Score 1-10) Qty: 0 0RF ibuprofen 600 mg Tablet 600 mg PO Q6H PRN PRN (Reason: Pain Score 1-10) Qty: 0 0RF Primary Care Provider: Denver Gill Referrals: Denver Gill MD [Primary Care Provider] - 10-14 Days if not better Disposition Disposition: Home, Self Care
[2023-02-11 18:33] LABS: Squamous Epithelial Cells - UA 0-5 SEEN /hpf (5-10)
== END 2023-02-11 18:32 | disposition home or self-care (01) ==
PROVIDERS: Emergency Provider Emergency Medicine; PCP Family Medicine; Visit Provider Emergency Medicine
DX: J06.9 Acute upper respiratory infection, unspecified (principal); D72.829 Elevated white blood cell count, unspecified; R10.9 Unspecified abdominal pain; Z87.891 Personal history of nicotine dependence
CPT/HCPCS: 80048; 81001; 99282; A4216

== ENCOUNTER 2023-11-25 00:25 | Emergency (ER) | payer MEDICAID, SELFPAY ==
[2023-11-25 00:28] VITALS: BP 118/65; PULSE 89; RESP 18; TEMP 36.8; O2SAT 95; BMI 38.9
--- NOTE | 2023-11-25 00:50 | RAD_ITS ---
EXAM: XR CHEST, 2 VIEWS CLINICAL INDICATION: cough, chest tightness, sob cough, chest tightness, sob TECHNIQUE: Frontal and lateral views of the chest. COMPARISON: No relevant prior studies available. FINDINGS: LUNGS AND PLEURAL SPACES: Unremarkable. No consolidation or edema. No pneumothorax. No effusion. HEART: Unremarkable. Cardiac silhouette not enlarged. MEDIASTINUM: Central airways and mediastinal contour are unremarkable. BONES/JOINTS: Unremarkable. No acute fracture. SOFT TISSUES: Unremarkable. RAD/Chest PA and Lateral IMPRESSION: No radiographic evidence of acute cardiopulmonary disease. Electronically Signed: Judson Carter MD at 2:13 EDT Reading Location ID and State: [facility] / [place] , Service support ,
--- NOTE | 2023-11-25 00:50 | ED.VIS.DYS ---
HPI History of Present Illness Chief Complaint: Cold Sx Informant: patient Narrative Narrative: Over the course of this past day patient has developed a nonproductive cough, fever up to 102, mild gradual in onset headache without neck stiffness or confusion, and chest tightness and wheezing. Only exposure to illness that she knows of is her son who recently was diagnosed with croup. No travel out of the area of the country. No history of asthma. [facility] Medical History depression Home Medications albuterol sulfate 90 mcg/actuation aerosol inhaler (Ventolin HFA) 1 - 2 puff inhalation Q4H PRN PRN Wheezing ##1 11/25/23 [Rx Last Taken Unknown] Allergy/AdvReac Type Severity Reaction Status Date / Time No Known Allergies Allergy Verified 11/25/23 00:27 Surgical History History of surgery Social History Smoking Status: Never smoker ROS ROS ED Constitutional Constitutional ED: Reports chills and fever(s) ENT ENT ED: Denies ear pain, nasal congestion, rhinorrhea or sore throat Cardiovascular Cardiovascular: Reports chest pain; Denies palpitations Respiratory/Chest Respiratory/Chest: Reports cough and dyspnea; Denies sputum Gastrointestinal Gastrointestinal: Denies abdominal pain, diarrhea, nausea or vomiting Genitourinary Genitourinary ED: Denies dysuria or hematuria Musculoskeletal Musculoskeletal: Denies myalgias or neck pain Integumentary Denies abscess or rash Neurologic Neurologic: Reports headache(s); Denies paresthesias or weakness Psychiatric Psychiatric: Denies depression or suicidal thoughts Endocrine Endocrinology: Denies polydipsia or polyuria EXAM Physical Exam Const Vital Signs: 11/25/23 00:28 11/25/23 00:28 Temperature 98.2 F Temperature Source Temporal Pulse Rate 89 Respiratory Rate 18 Respiratory Effort Normal Blood Pressure 118/65 Blood Pressure Mean 82 Pulse Ox 95 Positive well nourished and well developed Constitutional Narrative: Well-appearing, conversive in full sentences General Appearance ED: well developed and NAD HEENT Reports moist mucous membranes normocephalic and atraumatic Throat: Negative for posterior oropharynx abnormal Eyes PERRL and EOMs intact bilaterally Neck no lymphadenopathy, supple and no meningeal signs Resp normal respiratory effort and clear to auscultation bilaterally Cardio no murmurs Rate: regular rate; Negative for tachycardic Rhythm: regular rhythm Neuro oriented x3, CN's II-XII intact bilaterally and no sensory deficits noted Sensorium / Orientation: alert Motor Exam: strength 5/5 throughout Psych mental status grossly normal Skin Lesions: no lesions Rashes: no rashes MDM MDM MDM Narrative Medical decision making narrative: 2 view chest x-ray negative for pneumonia on my interpretation, and COVID/influenza/RSV swab is negative. Patient is not wheezing right now. Her vital signs are normal and her oxygenation is normal. She is well-appearing. I do not think she needs antibiotics for this illness, but I think prescribing her albuterol MDI would be reasonable for what is likely viral wheezy bronchitis. She is comfortable with that plan. Radiography Diagnostic Testing: Clinical Impression(s) from Imaging Studies Chest X-Ray 11/25/23 00:50 IMPRESSION: No radiographic evidence of acute cardiopulmonary disease. Electronically Signed: Judson Carter MD at 2:13 EDT Reading Location ID and State: [facility] / [place] , Service support , Discharge Plan Triage Chief Complaint: Cold Sx ED Provider: Rojelio Bullock Dx/Rx/DC Orders Clinical Impression: Acute wheezy bronchitis Instructions: ED Bronchitis with Wheezing (Adult) Prescriptions: New albuterol sulfate [Ventolin HFA] 90 mcg/actuation HFA aerosol inhaler 1 - 2 puff inhalation Q4H PRN PRN (Reason: Wheezing) Qty: 1 0RF Primary Care Provider: Marcelo Barraza REEL FED PRINTER Referrals: Denver Gill MD [Non-Staff] -
[2023-11-25 02:41] VITALS: BP 115/71; PULSE 77; RESP 16; TEMP 36.9; O2SAT 97
== END 2023-11-25 02:41 | disposition home or self-care (01) ==
LOC: ED 01:49
PROVIDERS: Emergency Provider Emergency Medicine; PCP Nurse Practitioner Family; Visit Provider Emergency Medicine
DX: J20.9 Acute bronchitis, unspecified (principal); R51.9 Headache, unspecified
CPT/HCPCS: 71046; 87631; 99282

== ENCOUNTER 2024-02-23 17:21 | Emergency (ER) | payer MEDICAID, SELFPAY ==
[2024-02-23 17:21] VITALS: BP 152/80; PULSE 86; RESP 16; TEMP 36.4; O2SAT 98; BMI 39.9
--- NOTE | 2024-02-23 17:38 | EDS_ITS ---
HPI History of Present Illness Chief Complaint: GI Bleed Detail of Chief Complaint: Bright red blood per rectum x 1 week Informant: patient Onset/Context/Timing Onset: Weeks Context: Sudden Onset Timing: Intermittent Quality: Bright red blood with bowel movement Location: Anus Current Severity: Gone Maximum Severity: Moderate Worsened by: Bowel movement Relieved by: Nothing Associated Symptoms Associated Symptoms: None Narrative Narrative: Patient is a 23-year-old female. She presents because of bright red blood per rectum with each bowel movement. This has been going on for 1 week. She denies passage of clots. She denies orthostatic symptoms. She denies abdominal pain. She denies liver problems. There is no history of rectal trauma. She denies constipation or diarrhea. Prior similar symptoms: No Recent Illness/Hospitalization: No PFSH PFSH Medical History Physical exam, pre-employment depression Home Medications ?Medication ?Instructions ?Recorded ?Last Taken ?Type albuterol sulfate 90 mcg/actuation 1 - 2 puff inhalation Q4H PRN PRN 11/25/23 Unknown Rx aerosol inhaler (Ventolin HFA) Wheezing ##1 Allergy/AdvReac Type Severity Reaction Status Date / Time No Known Allergies Allergy Verified 02/23/24 17:21 Surgical History History of surgery Social History Smoking Status: Never smoker ROS ROS ED Constitutional Constitutional ED: Denies chills or fever(s) Cardiovascular Cardiovascular: Denies chest pain Respiratory/Chest Respiratory/Chest: Denies cough, dyspnea or dyspnea on exertion Gastrointestinal Gastrointestinal: Denies abdominal pain, constipation, diarrhea, melena, nausea or vomiting Hematologic/Lymphatic Hematologic/Lymphatic: Reports systems reviewed and no addt'l complaints, except as documented EXAM Physical Exam Const Vital Signs: 02/23/24 17:21 Temperature 97.6 F L Temperature Source Temporal Pulse Rate 86 Respiratory Rate 16 Blood Pressure 152/80 H Blood Pressure Mean 104 Pulse Ox 98 Oxygen Delivery Method Room Air Positive well nourished and well developed General Appearance ED: well developed and NAD; Negative for pallor HEENT Reports moist mucous membranes HEENT Narrative: Head is atraumatic normocephalic. Ears normal. Nares patent. Eyes PERRL and EOMs intact bilaterally General Eye ED: Negative for pale conjunctiva or scleral icterus Resp normal respiratory effort Cardio regular rate and regular rhythm GI normal to inspection, nondistended, normoactive bowel sounds, non-tender and non-distended; Negative for hepatosplenomegaly GI Narrative: There is no fissures, fistulas or hemorrhoids noted on rectal exam. Stool is brown. There is no blood noted. Extremity normal to inspection General Extremety ED: Negative for edema or tenderness General Extremity: Negative for edema Neuro oriented x3 and CN's II-XII intact bilaterally Sensorium / Orientation: alert Psych mental status grossly normal Skin no rashes or lesions noted, no wounds and skin turgor normal General Skin Exam: elasticity normal; Negative for jaundice or pallor Procedures Other Procedures Procedure(s): Anoscopy with nurse forklift driver. Anoscopy was performed. Patient is noted to have 2 external hemorrhoids at 2:00 and 1 external hemorrhoid at 7:00 lithotomy position. The rectal mucosa is normal. The stool is brown and green in color. There is no other abnormality noted. Patient was informed of the results. Discharge Plan Triage Chief Complaint: GI Bleed ED Provider: Swapnil Carrero Dx/Rx/DC Orders Clinical Impression: Bleeding external hemorrhoids, BMI 39.0-39.9,adult Instructions: ED Hemorrhoids Prescriptions: No Action albuterol sulfate [Ventolin HFA] 90 mcg/actuation HFA aerosol inhaler 1 - 2 puff inhalation Q4H PRN PRN (Reason: Wheezing) Qty: 1 0RF Primary Care Provider: Marcelo Barraza NP Referrals: Marcelo Barraza NP, HIGH SCHOOL SCIENCE TEACHER-C [Primary Care Provider] - 10-14 Days if not better Print Language: [place] Islander Disposition Disposition: Home, Self Care
== END 2024-02-23 18:01 | disposition home or self-care (01) ==
LOC: ED 17:54
PROVIDERS: Emergency Provider Emergency Medicine; PCP Nurse Practitioner Family; Visit Provider Emergency Medicine
DX: K64.4 Residual hemorrhoidal skin tags (principal)
CPT/HCPCS: 46600; 99282

== ENCOUNTER 2024-12-06 05:46 | Emergency (ER) | payer MEDICAID, SELFPAY ==
[2024-12-06 05:47] VITALS: BP 131/71; PULSE 78; RESP 16; TEMP 36.7; O2SAT 97
--- NOTE | 2024-12-06 05:59 | EX.ED.DYSGE1 ---
HPI History of Present Illness Chief Complaint: General Illness Informant: patient Narrative Narrative: 24-year-old female 3 days total of respiratory illness started with runny nose, congestion, sore throat, subjective fevers. She developed headache, some chest tightness and wheezing this morning that is not as bad right now for no particular reason, and she had 1 bout of posttussive emesis. No nausea or abdominal pain or diarrhea. She does not have a history of asthma was concerned that she was wheezing and had chest tightness. [facility] Medical History Physical exam, pre-employment depression Home Medications ?Medication ?Instructions ?Recorded ?Last Taken ?Type albuterol sulfate 90 mcg/actuation 1 - 2 puff inhalation Q4H PRN PRN 11/25/23 Unknown Rx aerosol inhaler (Ventolin HFA) Wheezing ##1 Allergy/AdvReac Type Severity Reaction Status Date / Time No Known Allergies Allergy Verified 12/06/24 05:47 Family History no significant family his Surgical History History of surgery Social History Smoking Status: Never smoker ROS [facility] ED Constitutional Constitutional ED: Reports fever(s) and subjective; Denies chills ENT ENT ED: Reports nasal congestion, rhinorrhea and sore throat; Denies ear pain Cardiovascular Cardiovascular: Denies chest pain or palpitations Respiratory/Chest Respiratory/Chest: Reports cough, dyspnea and wheezing; Denies sputum Gastrointestinal Gastrointestinal: Reports vomiting; Denies abdominal pain, diarrhea or nausea Genitourinary Genitourinary ED: Denies dysuria or hematuria Musculoskeletal Musculoskeletal: Denies myalgias or neck pain Integumentary Denies abscess or rash Neurologic Neurologic: Reports headache(s); Denies paresthesias or weakness Psychiatric Psychiatric: Denies depression or suicidal thoughts Endocrine Endocrinology: Denies polydipsia or polyuria EXAM Physical Exam Const Vital Signs: 12/06/24 05:47 12/06/24 05:47 Temperature 98.1 F Temperature Source Oral Pulse Rate 78 Respiratory Rate 16 Respiratory Effort Normal Respiratory Pattern Normal Blood Pressure 131/71 H Blood Pressure Mean 91 Pulse Ox 97 Oxygen Delivery Method Room Air Positive well nourished and well developed Constitutional Narrative: Well-appearing General Appearance ED: well developed and NAD HEENT Reports TM's clear and moist mucous membranes HEENT Narrative: No trismus. No erythema or exudates in throat. normocephalic and atraumatic Tympanic Membrane ED: Yes TM's clear Throat: Negative for posterior oropharynx abnormal Eyes PERRL and EOMs intact bilaterally Neck no lymphadenopathy, supple and no meningeal signs Resp normal respiratory effort and clear to auscultation bilaterally Cardio no murmurs Rate: regular rate Rhythm: regular rhythm GI normal to inspection, nondistended, normoactive bowel sounds, non-tender and non-distended Neuro oriented x3, CN's II-XII intact bilaterally and no sensory deficits noted Sensorium / Orientation: alert Motor Exam: strength 5/5 throughout Psych mental status grossly normal Skin Lesions: no lesions Rashes: no rashes MDM MDM MDM Narrative Medical decision making narrative: Right now patient's lungs are clear, she is not having tightness, and her vital signs are normal she has no tachycardia or hypoxemia. Her exam is very benign, inconsistent with strep throat, mononucleosis, and pneumonia. Obtain a two-view chest x-ray in order to rule out pneumonia, it is normal on my interpretation. COVID/influenza/RSV swab is sent and presumably will be negative given very low prevalence of disease with regards to all 3 in the area recently. Likely viral etiology. I am having respiratory give her an albuterol inhaler along with instructions for use, no steroids indicated. Lab Data Attestation: I reviewed the patient's lab results. Radiography Diagnostic Testing: Clinical Impression(s) from Imaging Studies Chest X-Ray 12/06/24 06:10 IMPRESSION: No evidence of acute disease. Reading Location: [facility] Discharge Plan Triage Chief Complaint: General Illness ED Provider: Rojelio Bullock Dx/Rx/DC Orders Clinical Impression: Acute wheezy bronchitis Instructions: ED Bronchitis with Wheezing (Adult) Prescriptions: Continued albuterol sulfate [Ventolin HFA] 90 mcg/actuation HFA aerosol inhaler 1 - 2 puff inhalation Q4H PRN PRN (Reason: Wheezing) Qty: 1 0RF Primary Care Provider: Marcelo aBrraza NP Referrals: Madi,Marcelo GATHERING MACHINE FEEDER, GATHERING MACHINE FEEDER-C [Primary Care Provider] - 1 Week if not improving Print Language: Arabic Disposition Disposition: Home, Self Care
[2024-12-06] MEDS: Albuterol Sulfate 8 gm Inhaler (60 puffs) 2 PUFF INHALATION (06:01)
--- NOTE | 2024-12-06 06:10 | RAD_ITS ---
PROCEDURE: CHEST PA AND LATERAL 12/06/2024 REASON FOR EXAM: COUGH, SOB TECHNIQUE: Frontal and lateral views of the chest. COMPARISON: 11/25/2023 FINDINGS: The lungs are clear. Pulmonary vascularity appears within limits. No pleural effusion. The cardiac and mediastinal contours appear within limits. Status post cholecystectomy. The visualized osseous structures appear within limits. RAD/Chest PA and Lateral IMPRESSION: No evidence of acute disease. Reading Location: [id number]
[2024-12-06 07:40] VITALS: BP 102/62; PULSE 77; RESP 19; TEMP 36.7; O2SAT 97
== END 2024-12-06 07:45 | disposition home or self-care (01) ==
LOC: ED 06:34
PROVIDERS: Emergency Provider Emergency Medicine; PCP Nurse Practitioner Family; Visit Provider Emergency Medicine
DX: J20.9 Acute bronchitis, unspecified (principal); R50.9 Fever, unspecified; R51.9 Headache, unspecified
CPT/HCPCS: 71046; 87631; 99282

== ENCOUNTER 2024-12-15 06:21 | Emergency (ER) | payer MEDICAID, SELFPAY ==
[2024-12-15 06:23] VITALS: BP 136/62; PULSE 73; RESP 18; TEMP 36.5; O2SAT 99; BMI 40.2
--- NOTE | 2024-12-15 06:25 | EDS_ITS ---
HPI History of Present Illness Chief Complaint: Cold Sx [facility] Medical History Physical exam, pre-employment depression Home Medications ?Medication ?Instructions ?Recorded ?Last Taken ?Type albuterol sulfate 90 mcg/actuation 1 - 2 puff inhalati on Q4H PRN PRN 11/25/23 Unknown Rx aerosol inhaler (Ventolin HFA) Wheezing ##1 prednisone 20 mg tablet 20 mg PO DAILY 5 days #5 tab s 12/15/24 Unknown Rx Allergy/AdvReac Type Severity Reaction Status Date / Time No Known Allergies Allergy Verified 12/15/24 06:23 Surgical History History of surgery Social History Smoking Status: Never smoker EXAM Physical Exam Const Vital Signs: 12/15/24 06:23 12/15/24 06:24 Temperature 97.7 F L Temperature Source Oral Pulse Rate 73 Respiratory Rate 18 Respiratory Effort Normal Non-Labored Respiratory Pattern Normal Blood Pressure 136/62 H Blood Pressure Mean 86 Pulse Ox 99 Oxygen Delivery Method Room Air MDM MDM MDM Narrative Medical decision making narrative: HISTORY OF PRESENT ILLNESS: Chief complaint: Chest tightness 24-year-old female presents with chest tightness in the setting of recent viral URI. Patient denies chest pain or any reported chest tightness as per triage note. States she finds that she feels like she is having difficulty getting a full breath. Denies cough. Denies fever. Does note some ongoing congestion. Notes an inhaler that helps her symptoms. Denies leg swelling denies bleeding diathesis. The patient denies recent surgery in the last 4 weeks or immobilization in the last 3 days, denies previous diagnosis of DVT or PE, hemoptysis, unilateral leg swelling or malignancy with treatment the last 6 months or palliative. No estrogen use noted. Patient denies sudden onset of pain, no tearing sensation, no migratory symptoms, no new numbness, weakness or loss of sensation. Patient denies family history or personal history of Connective tissue disorders (Marfan's Syndrome, Analia Danlos etc) REVIEW OF SYSTEMS: Pertinent positives: Difficulty breathing Pertinent negatives: As per HPI PHYSICAL EXAM: Nursing triage notes reviewed, Vital signs reviewed Constitutional: please see mdm HENT: MMM Eyes: Pupils equal round and reactive to light, Extraocular muscles intact Neck: No stridor, no JVD, full neck ROM Lungs: Clear to auscultation, No wheezing or rales. No increased work of breathing, no conversational dyspnea, no accessory muscle use, no nasal flaring. No respiratory distress noted Heart: Regular rate and rhythm, No murmurs, No rubs and No gallops, 2+ distal pulses (radial, femoral, posterior tibial) in all extremities Abdomen: Soft, there is no tenderness, rigidity, rebound or guarding, no obvious peritoneal signs, no palpable pulsatile abdominal masses, no auscultated abdominal bruit : No CVAT Extremities: No edema Neuro: No new focal neurological deficits, cranial nerves II through XII intact, 5/5 strength in all present extremities. Intact sensation to light touch in all present extremities, 2+ reflexes bilateral patella tendons. Skin: No rash or lesions noted MEDICAL DECISION MAKING: Chief Complaint: please see HPI External records reviewed: Reviewed prior imaging studies: Reviewed x-ray from 12/06/2024 which showed no evidence of pneumonia Factors affecting care: none Social determinants of health: denies drug use History obtained from others: none Consults: none [facility] Narrative: The patient was initially hemodynamically stable, afebrile and nontoxic- appearing. Exam without focal lung findings. No for consolidative process. 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 No o bvious wheezing no lower extremity edema. No stigmata of VTE or CHF on initial exam I considered the following differential diagnosis: Pneumonia, asthma exacerbation While I considered pneumonia the patient did have a fever, not hypoxic and no focal lung findings suggest pneumonia in addition to that she had a negative x- ray within the last 2 weeks with similar symptoms. And lieu of chest x-ray opted for an EKG, ambulatory pulse ox. ALL IMAGES (IF OBTAINED) HAVE BEEN PERSONALLY REVIEWED AND INTERPRETED BY MYSELF. EKG with normal sinus rhythm rate of 68, no axis, no intervals, no STEMI The synthesis of the patient's history, physical exam, labs, images suggest no acute life or limb threatening etiology. The patient had no lily chest pain or shortness of breath but just noted feeling of air hunger or dyspnea. Here she ambulated with a pulse ox 95% with no vital sign abnormalities. No clear explanation for her symptoms however is unlikely be life-threatening given her stable vitals, reassuring exam and unremarkable historical factors. She received a short course of prednisone to improve inflammatory changes associated with possible underlying bronchitis. The patient and/or family, caregivers express understanding. The patient and/or family, caregivers agrees with the plan. Shared decision making: I will have a discussion with the patient and or visitors regarding risk/benefits of further testing or admission. They will be made aware of of the risk/benefits inherent in this decision they will be given the opportunity to voice understanding. Total critical care time today provided was at least 0 minutes. This excludes separately billable procedures. Critical care time (if documented) is secondary to the patient having high probability of clinically significant/life threatening deterioration in the patient's condition which required my urgent intervention. Impression: 1. Dyspnea 2. History of bronchitis Dispo: Discharge home This note was generated with Lore dictation software. It may contain incorrect words, spelling, and punctuation that were not noted in review of the chart prior to signing. Discharge Plan Triage Chief Complaint: Cold Sx ED Provider: Denzel Olmstead Dx/Rx/DC Orders Clinical Impression: Acute dyspnea Instructions: ED Bronchitis, No Antibiotic (Adult) Prescriptions: New prednisone 20 mg tablet 20 mg PO DAILY 5 Days Qty: 5 0RF No Action albuterol sulfate [Ventolin HFA] 90 mcg/actuation HFA aerosol inhaler 1 - 2 puff inhalation Q4H PRN PRN (Reason: Wheezing) Qty: 1 0RF Primary Care Provider: Marcelo Barraza NP Referrals: Marcelo Barraza NP, [facility] [Primary Care Provider] - Activity Restrictions/Additional Instructions: Thank you for trusting us with your care today! Your presentation may be consistent with lingering inflammation of your lungs possibly bronchitis. You are prescribed steroids that with inflammation. Please take steroids until they are complete Please take Tylenol (2 pills, 650 mg), ibuprofen (2 pills, 400 mg) every 6 hours as needed for pain and fever control. Please return to the emergency department if your symptoms change or worsen. Specifically develop chest pain, increasing shortness of breath, leg swelling or if you lose consciousness. Please follow with your primary care physician for further outpatient evaluation and management. Print Language: Turkish Disposition Disposition: Home, Self Care
--- NOTE | 2024-12-15 06:30 | EKG12_ITS ---
Test Reason : COLD SX Blood Pressure : */* mmHG Vent. Rate : 68 BPM Atrial Rate : 68 BPM P-R Int : 180 ms QRS Dur : 86 ms QT Int : 388 ms P-R-T Axes : 12 56 27 degrees QTcB Int : 412 ms Normal sinus rhythm Normal ECG Confirmed by BRONSON MARCOS ([id number]), senior editor JHONATAN PEREZ ([id number]) on 12/20/2024 8:07:49 AM Referred By: Confirmed By: BRONSON MARCOS
[2024-12-15 06:37] VITALS: O2SAT 99
[2024-12-15] MEDS: predniSONE 20 MG Tablet PO (06:37)
[2024-12-15 06:48] VITALS: BP 123/74; PULSE 73; RESP 18; TEMP 36.5; O2SAT 99
== END 2024-12-15 06:51 | disposition home or self-care (01) ==
LOC: ED 06:47
PROVIDERS: Emergency Provider Emergency Medicine; PCP Nurse Practitioner Family; Visit Provider Emergency Medicine
DX: R06.00 Dyspnea, unspecified (principal); R07.89 Other chest pain
CPT/HCPCS: 93005; 99282

== ENCOUNTER 2025-02-07 00:41 | Emergency (ER) | payer MEDICAID, SELFPAY ==
[2025-02-07 00:42] VITALS: BP 118/69; PULSE 79; RESP 16; TEMP 36.9; O2SAT 97; BMI 40.3
--- NOTE | 2025-02-07 01:05 | EKG12_ITS ---
Test Reason : CP Blood Pressure : */* mmHG Vent. Rate : 77 BPM Atrial Rate : 77 BPM P-R Int : 172 ms QRS Dur : 80 ms QT Int : 384 ms P-R-T Axes : 13 56 22 degrees QTcB Int : 434 ms Normal sinus rhythm Normal ECG Confirmed by Landon Cr ([id number]), multimedia editor ANGY FRIED ([id number]) on 02/08/2025 1:13:58 PM Referred By: Ara Confirmed By: Landon Cr
--- NOTE | 2025-02-07 01:12 | ED.VIS.CHEST ---
HPI History of Present Illness Chief Complaint: Chest Pain Informant: patient Narrative Narrative: Patient has been having substernal sharp nonpleuritic nonradiating chest discomfort for the past 10-11 hours. She states she chronically has dyspnea on exertion and feels like she wheezes at times, never formally diagnosed with asthma but she has an inhaler from an episode of bronchitis and states she has used it and it has helped when she has, and does not feel like that has been any worse or different since she has had this chest discomfort today. The discomfort started while she was sitting at rest this afternoon and is persisted all evening. Not exertional. No arm jaw neck or back pain. No abdominal discomfort or nausea/vomiting. Never had this before which is why she was concerned. No history of blood clots, no leg pain or swelling, no recent immobilization, long travel, hospitalization, or surgery. No recent illness and denies a cough or hemoptysis. [facility] Medical History Physical exam, pre-employment depression Home Medications ?Medication ?Instructions ?Recorded ?Last Taken ?Type pantoprazole 40 mg tablet,delayed 40 mg PO DAILY #14 tabs 02/07/25 Unknown Rx release Allergy/AdvReac Type Severity Reaction Status Date / Time No Known Allergies Allergy Verified 02/07/25 00:45 Surgical History History of surgery Social History Smoking Status: Former smoker ROS ROS ED Constitutional Constitutional ED: Denies chills or fever(s) Eyes Eyes: Denies change in vision or diplopia ENT ENT ED: Denies rhinorrhea or sore throat Cardiovascular Cardiovascular: Reports chest pain; Denies leg edema or palpitations Respiratory/Chest Respiratory/Chest: Reports dyspnea on exertion; Denies cough or dyspnea Gastrointestinal Gastrointestinal: Denies abdominal pain, diarrhea, nausea or vomiting Genitourinary Genitourinary ED: Denies dysuria or hematuria Musculoskeletal Musculoskeletal: Denies back pain or neck pain Integumentary Denies abscess or rash Neurologic Neurologic: Denies headache(s), paresthesias or weakness Psychiatric Psychiatric: Denies anxiety or suicidal thoughts EXAM Physical Exam Const Vital Signs: 02/07/25 00:42 02/07/25 00:43 02/07/25 01:18 Temperature 98.5 F Temperature Source Oral Pulse Rate 79 Respiratory Rate 16 Respiratory Effort Normal Non-Labored Respiratory Pattern Normal Blood Pressure 118/69 Blood Pressure Mean 85 Pulse Ox 97 Oxygen Delivery Method Room Air Room Air Positive well nourished and well developed General Appearance ED: well developed and NAD HEENT Reports moist mucous membranes normocephalic and atraumatic Eyes PERRL and EOMs intact bilaterally Neck full ROM and supple Resp normal respiratory effort and clear to auscultation bilaterally Cardio regular rate, regular rhythm and no murmurs GI non-tender and non-distended Auscultation: normoactive bowel sounds Palpation: soft Back/Spine no CVA tenderness General Back: other FROM Extremity normal to inspection General Extremety ED: Negative for edema, pulses abnormal or tenderness General Extremity: Negative for edema or pulses abnormal Neuro oriented x3, CN's II-XII intact bilaterally and no sensory deficits noted Sensorium / Orientation: awake and alert Motor Exam: strength 5/5 throughout Skin no rashes or lesions noted and no wounds Heart Score History: Slightly/Non-Suspicious ECG: Normal Age: </= 45 years Risk Factors: No Risk Factors Troponin: </= Normal Limit Score: 0 MDM MDM MDM Narrative Medical decision making narrative: Patient's PERC score is 0, her vital signs are normal her exam is benign she does not require further workup in order for us to rule out PE as cause of the symptoms she is reassured, her EKG is normal, I ran labs and did a two-view chest x-ray which my interpretation is normal while we gave her a GI cocktail and monitored her. The GI cocktail helped, her testing is all normal along with troponin, other blood test except for a mild nonspecific leukocytosis without a left shift. My suspicion is that this is esophageal in nature. I am going to give her a pantoprazole and a prescription for 2-week course and advised that she follow-up with her doctor. She is comfortable with that plan. Lab Data Attestation: I reviewed the patient's lab results. Labs: Laboratory Results - last 24 hr 02/07/25 01:15 WBC 12.2 H RBC 4.18 L Hgb 12.4 Hct 37.7 MCV 90.2 MCH 29.7 MCHC 32.9 RDW Std Deviation 39.6 RDW Coeff of [place] 12.0 Plt Count 295 MPV 9.9 Immature Gran % (Auto) 0.300 Neut % (Auto) 63.7 Lymph % (Auto) 25.3 [place] % (Auto) 6.4 Eos % (Auto) 3.5 Baso % (Auto) 0.8 Absolute Neuts (auto) 7.8 H Absolute Lymphs (auto) 3.09 Nucleated RBC % 0 Sodium 139 Potassium 3.7 Chloride 105 Carbon Dioxide 21.3 Anion Gap 12 BUN 10 Creatinine 0.70 Estim Creat Clear Calc 141.12 Est GFR (MDRD) Non-Af 122 BUN/Creatinine Ratio 14.4 Glucose 98 Calcium 9.1 Troponin T High Sens < 6 Radiography Diagnostic Testing: Clinical Impression(s) from Imaging Studies Chest X-Ray 02/07/25 01:30 IMPRESSION: No acute chest findings Reading Location: [place] [id number] Rhythm Strip Rhythm Strip: Sinus Rhythm Rate: 77 Ectopy: None EKG Initial EKG: Attestation: I personally reviewed and interpreted this EKG as follows: Interpretation: Sinus Rhythm and No Acute Injury Pattern Comments: Nml axis & intervals; nml EKG Discharge Plan Triage Chief Complaint: Chest Pain ED Provider: Rojelio Bullock Dx/Rx/DC Orders Clinical Impression: Chest pain due to GERD Instructions: ED Chest Pain, Noncardiac, ED GERD (Adult) Prescriptions: New pantoprazole 40 mg tablet,delayed release (DR/EC) 40 mg PO DAILY Qty: 14 0RF Primary Care Provider: Denver Gill Referrals: Denver Gill MD [Primary Care Provider] - 1 Week if not improving Print Language: Malay Disposition Disposition: Home, Self Care
[2025-02-07] MEDS: Lidocaine 2% Viscous15 ML UDC 15 ML PO (01:18)
[2025-02-07 01:21] LABS: Hematocrit 37.7 % (37-47); Hemoglobin 12.4 g/dL (12.0-15.0); Immature Granulocytes Count 0.040 X10^3/uL (0.0-0.0); Mean Corp Hgb Conc 32.9 g/dL (32-36); Mean Corpuscular Volume 90.2 fL (81-99); Mean Platelet Vol. 9.9 fl (6.2-12.0); NRBC Flagged by Analyzer 0 % (0-5); Platelet Count 295 K/mm3 (150-450); RBC Distribution Width CV 12.0 % (11.6-14.6); RBC Distribution Width SD 39.6 fl (35.1-43.9); Red Blood Count 4.18 M/mm3 (4.2-5.4); White Blood Count 12.2 K/mm3 (4.4-11.0)
--- OUTSIDE RECORDS SUMMARY | 2025-02-07 01:26 | XMS RPT_ITS | CCD ---
Author Organization [facility] Care Team Providers Care Gaming Worker Name Role Phone JASMINA ALSTON DO Admitting Unavailable JASMINA ALSTON DO Attending Unavailable JASMINA ALSTON DO Primary Care Unavailable FRANCESCA GILL Consulting Unavailable FRANCESCA GILL Referring Unavailable PROVIDER, UNKNOWN Consulting Unavailable Francesca Gill MD Primary Care Provider Francesca Gill MD Primary Care Provider Francesca Gill MD Primary Care Provider T[place]hof TRAFFIC CHIEF.INDUSTRIAL RADIOGRAPHER Angy Unavailable Madi TRAFFIC CHIEF.INDUSTRIAL RADIOGRAPHER, Marcelo Unavailable Tannhof TRAFFIC CHIEF.INDUSTRIAL RADIOGRAPHER Angy Unavailable Madi FOOD MIXER REPAIRER-C, Marcelo Primary Care Provider Dr. Rojelio Bullock MD Emergency Provider Dr. Rojelio Bullock MD Attending Provider Dr. Denzel Olmstead DO Emergency Provider Madi FOOD MIXER REPAIRER, Marcelo Referring Unavailable Madi FOOD MIXER REPAIRER, Marcelo Primary Care Unavailable Mick Cronin Attending Unavailable Madi FOOD MIXER REPAIRER, Marcelo Referring Unavailable Madi FOOD MIXER REPAIRER, Marcelo Primary Care Unavailable Mick Cronin Attending Unavailable Madi FOOD MIXER REPAIRER, Marcelo Primary Care Unavailable Denzel Olmstead Attending Unavailable Madi FOOD MIXER REPAIRER, Marcelo Primary Care Unavailable Rojelio Bullock Attending Unavailable Madi FOOD MIXER REPAIRER, Marcelo Primary Care Unavailable Carrero, Swapnil Attending Unavailable Madi FOOD MIXER REPAIRER, Marcelo Primary Care Unavailable Mick Cronin Referring Unavailable Mick Cronin Attending Unavailable FRANCESCA GILL Referring Unavailable FRANCESCA GILL Primary Care Unavailable PEGGY, AMNICKHA Attending Unavailable FRANCESCA GILL Primary Care Unavailable PEGGY, AMUDHA Referring Unavailable FRANCESCA GILL Primary Care Unavailable NIKITA DANIELS Attending Unavailable SAM OSBORNE Attending Unavailable FRANCESCA GILL Primary Care Unavailable SAM OSBORNE Referring Unavailable FRANCESCA GILL Primary Care Unavailable SAM OSBORNE Referring Unavailable FRANCESCA GILL Primary Care Unavailable FRANCESCA GILL Primary Care Unavailable ANGY AVILA Attending Unavailabl FRANCESCA Rodriguez Primary Care Unavailable DEBO NIELSON Attending Unavailable FRANCESCA GILL Primary Care Unavailable SAM OSBORNE Attending Unavailable FRANCESCA GILL Primary Care Unavailable SAM OSBORNE Referring Unavailable FRANCESCA GILL Primary Care Unavailable JOB PEREIRA Attending Unavailable FRANCESCA GILL Attending Unavailable FRANCESCA GILL Primary Care Unavailable FRANCESCA GILL Primary Care Unavailable ANN VEGA Attending Unavailable Medications Current Medications Medication Drug Class(es) Dates Sig (Normalized) Sig (Original) [id number] 200 actuat albuterol 0.09 mg/actuat metered dose inhaler (20 sources) beta2-Adrenergic Agonist Start: 11-25-2023 Albuterol Sulfate (Ventolin Hfa) 90 mcg/actuation HFA aerosol inhaler Active 1 - 2 NMA INHALATION EVERY 4 HOURS NEEDED as needed for Wheezing 1 November 25, 2023 12:00am Start: 11-25-2023 take 1 puff(s) by in halation every four hours as needed Albuterol Sulfate (Ventolin Hfa) 90 mcg/actuation HFA aerosol inhaler Active 1 - 2 PUFF INHALATION EVERY 4 HOURS NEEDED November 25, 2023 12:00am Start: 10-18-2021 take 2 puff(s) by in halation every four hours as needed for wheezing albuterol HFA (PROVENTIL HFA, VENTOLIN HFA) 90 mcg/actuation inhaler Inhale 2 Puffs as instructed every 4 hours as needed for wheezing/shortness of breath. 1 Inhaler 10/18/2021 Active Comment on above: Inhale 2 Puffs as in structed every 4 hours as needed for wheezing/shortness of breath. amoxicillin 875 mg / clavulanate 125 mg oral tablet (1 source) Penicillin-class Antibacterial Start: 025 End: take 1 tablet by mouth twice daily amoxicillin-clavulan ate potassium (AUGMENTIN) 875-125 mg per tablet Indications: Rhinosinusitis Take 1 tablet by mouth two times a day for 7 days. 14 tablet 11/17/2024 11/24/2024 Active benzonatate 100 mg oral capsule (8 sources) Non-narcotic Antitussive Start: 024 End: take 2 capsules by mouth every eight hours as needed benzonatate (TESSALON PERLES) 100 mg capsule Take 2 capsules by mouth three times a day as needed. 30 capsule 11/26/2023 05/14/2024 Discontinued Start: 10-17-2021 End: 11-16-2021 take 1 capsule by mouth every eight hours as needed for cough and cough benzonatate (TESSALON PERLES) 100 mg capsule Indications: Cough Take 1 capsule by mouth three times daily as needed for cough. 60 capsule 0 10/17/2021 11/16/2021 Active Comment on above: Take 1 capsule by [facility] three times daily as needed for cough. betamethasone 0.5 mg/ml / clotrimazole 10 mg/ml topical cream (1 source) Azole Antifungal, Corticosteroid Start: 05-14-20 End: 05-21-20 clotrimazole-betamet hasone (LOTRISONE) cream Indications: Vaginal itching Apply to affected area two times a day for 7 days. 15 g 05/14/2024 05/21/2024 Active docosanol 100 mg/ml topical cream (9 sources) Start: 07-04-20 End: 05-14-20 docosanol (ABREVA) 10 % crea Apply to affected area five times a day. 2 g 07/04/2023 05/14/2024 Discontinued Comment on above: Apply to affected ar ea five times a day. Ethinyl Estradiol / norgestimate (20 sources) Progestin, Estrogen Start: 11-01-19 End: 05-14-20 take 1 tablet by mouth once daily norgestimate 0.25 mg-ethinyl estradiol 35 mcg (SPRINTEC) 0.25-35 mg-mcg per tablet Take 1 tablet by mouth once daily. 28 tablet 14 10/31/2022 05/14/2024 Discontinued Start: 10-31-2022 take 1 tablet by marquez th once daily norgestimate 0.25 mg-ethinyl estradiol 35 mcg (SPRINTEC) 0.25-35 mg-mcg per tablet Take 1 tablet by mouth once daily. 28 tablet 14 10/31/2022 Active Start: 03-27-2021 End: 10-31-2022 take 1 tablet by mouth once daily norgestimate 0.25 mg-ethinyl estradiol 35 mcg (SPRINTEC) 0.25-35 mg-mcg per tablet Take 1 tablet by mouth once daily. 30 tablet 5 03/27/2021 10/31/2022 Discontinued Start: 03-27-2021 take 1 tablet by marquez th once daily norgestimate 0.25 mg-ethinyl estradiol 35 mcg (SPRINTEC) 0.25-35 mg-mcg per tablet Take 1 tablet by mouth once daily. 30 tablet 5 03/27/2021 Active Comment on above: Take 1 tablet by marquez th once daily. fluconazole 150 mg oral tablet (1 source) Azole Antifungal Start: End: take 1 tablet by mouth once fluconazole (DIFLUCAN) 150 mg tablet Indications: Vaginal itching Take 1 tablet by mouth one time only for 1 dose. 1 tablet 05/14/2024 05/14/2024 Active fluticasone propionate 0.05 mg/actuat metered dose nasal spray (10 sources) Corticosteroid Start: take 1-2 spray(s) nasal route once daily fluticasone (FLONASE) 50 mcg/actuation nasal spray Indications: Rhinoconjunctivitis Use 1-2 sprays in each nostril once daily. 16 g 11 12/23/2024 Active Start: 10-17-2021 End: 11-16-2021 take 2 spray(s) by mouth once daily fluticasone (FLONASE) 50 mcg/actuation nasal spray Use 2 Sprays in each nostril once daily. Rinse mouth after use. 11.1 mL 0 10/17/2021 11/16/2021 Active Comment on above: Use 2 Sprays in each nostril once daily. Rinse mouth after use. levonorgestrel 0.427447 mg/hr intrauterine system (20 sources) Progestin, Progestin-containing Intrauterine Device Start: End: levonorgestrel (MIRENA) 21 mcg/24 hours (8 yrs) 52 mg IUD Indications: Encounter for IUD insertion 1 Each by INTRAUTERINE route as directed. 1 Each 06/25/2023 06/23/2031 Active Comment on above: 1 Each by INTRAUTERI NE route as directed. metoclopramide 10 mg oral tablet (2 sources) Dopamine-2 Receptor Antagonist Start: End: take 1 tablet by mouth once metoclopramide HCl (REGLAN) 10 mg tablet Indications: Intractable chronic migraine without aura and without status migrainosus Take 1 tablet by mouth one time only for 1 dose. 1 tablet 10/08/2024 10/08/2024 Active naproxen 500 mg oral tablet (17 sources) Nonsteroidal Anti-inflammatory Drug Start: End: take 1 tablet by mouth twice daily at mealtime naproxen (NAPROSYN) 500 mg tablet Indications: Intercostal muscle strain, initial encounter Take 1 tablet by mouth twice daily with meals. Take with food. 20 tablet 02/07/2023 05/14/2024 Discontinued Comment on above: Take 1 tablet by marquez twice daily with meals. Take with food. predniSONE 20 mg oral tablet (11 sources) Start: take 1 tablet by mouth once daily Prednisone 20 mg tablet Active 20 mg PO DAILY 5 December 15, 2024 12:00am Start: 11-26-2023 End: 12-01-2023 take 2 tablets by mouth once daily predniSONE (DELTASONE) 20 mg tablet Take 2 tablets by mouth once daily for 5 days. 10 tablet 0 11/26/2023 12/01/2023 Active Start: 07-04-2023 End: 05-14-2024 predniSONE (DELTASONE) 10 mg tablet Take 4 tabs daily for 3 days, then 2 tabs daily for 3 days, then 1 tab daily for 3 days with food. 21 tablet 07/04/2023 05/14/2024 Discontinued Comment on above: Take 4 tabs daily fo r 3 days, then 2 tabs daily for 3 days, then 1 tab daily for 3 days with food. sertraline 50 mg oral tablet (20 sources) Serotonin Reuptake Inhibitor Start: End: take 1 tablet by mouth once daily sertraline (ZOLOFT) 50 mg tablet Take 1 tablet by mouth once daily. 30 tablet 5 03/27/2021 11/25/2024 Discontinued (Course of therapy completed) Comment on above: Take 1 tablet by marquez once daily. SUMAtriptan 50 mg oral tablet (14 sources) Serotonin-1b and Serotonin-1d Receptor Agonist Start: take 1 tablet by mouth every two hours as needed for headache SUMAtriptan (IMITREX) 50 mg tablet Indications: Intractable chronic migraine without aura and without status migrainosus Take 1 tablet by mouth as needed for migraine headache (see administration instructions). May repeat dose after 2 hours if needed. Maximum daily dose is 200 mg per day. 9 tablet 10/08/2024 Active triamcinolone acetonide 5 mg/ml topical cream (13 sources) Corticosteroid Start: End: triamcinolone acetonide (KENALOG) 0.5 % cream Indications: Contact dermatitis, unspecified contact dermatitis type, unspecified trigger Apply 1 application to affected area two times a day for 10 days. For rash/itching. Apply sparingly. Avoid face/skin fold. 30 g 0 02/18/2024 02/28/2024 Active Start: 10-31-2022 End: 02-18-2024 triamcinolone acetonide (JENNIFER ALOG) 0.1 % ointment Indications: Insect bite of left hip, initial encounter Apply to affected area twice daily. For 10 days 30 g 0 02/07/2023 02/18/2024 Discontinued Comment on above: Apply to affected ar ea twice daily. For 10-14 days Apply to affected ar ea twice daily. For 10 days Completed/Discontinued Medications Medication Drug Class(es) Dates Sig (Normalized) Sig (Original) acetaminophen 500 mg oral tablet (3 sources) Start: 11-16-2020 End: 11-25-2023 take 2 tablets by mouth every eight hours as needed for pain Acetaminophen 500 mg Tablet Discontinued 1000 mg PO EVERY 8 HOURS NEEDED as needed for Pain Score 1-10 0 November 16, 2020 12:00am November 25, 2023 12:27am Start: 11-16-2020 End: 11-25-2023 take 1000 mg by mouth every eight hours as needed Acetaminophen Discontinued 1000 MG PO EVERY 8 HOURS NEEDED 0 November 16, 2020 12:00am November 25, 2023 12:27am brompheniramine maleate 0.4 mg/ml / dextromethorphan hydrobromide 2 mg/ml / pseudoephedrine hydrochloride 6 mg/ml oral solution (5 sources) alpha-Adrenergic Agonist, Uncompetitive I-kiqdvd-Z-aspartate Receptor Antagonist, Sigma-1 Agonist Start: 12-05-2024 End: 01-27-2025 take 5 mL by mouth four times daily as needed Byvokzidepiqddm-Sdyvsaueo-YI (BROMFED DM) 2-30-10 mg/5 mL syrup Indications: Viral URI with cough Take 5 mL by mouth four times a day as needed. 118 mL 12/05/2024 01/27/2025 Discontinued cyclobenzaprine hydrochloride 5 mg oral tablet (3 sources) Muscle Relaxant Start: 11-15-2020 End: 11-16-2020 take 1 tablet by mouth at bedtime as needed for pain Cyclobenzaprine (Flexeril) 5 mg Tablet Discontinued 5 mg PO AT BEDTIME as needed for Back Pain November 15, 2020 12:00am November 16, 2020 9:14am ibuprofen 600 mg oral tablet (3 sources) Nonsteroidal Anti-inflammatory Drug Start: 11-16-2020 End: 11-25-2023 take 1 tablet by mouth every six hours as needed for pain Ibuprofen 600 mg Tablet Discontinued 600 mg PO EVERY 6 HOURS NEEDED as needed for Pain Score 1-10 0 November 16, 2020 12:00am November 25, 2023 12:27am 2 ml ketorolac tromethamine 30 mg/ml injection (2 sources) Nonsteroidal Anti-inflammatory Drug, Cyclooxygenase Inhibitor Start: 10-08-2024 End: 10-08-2024 keTORolac 60 mg injection (Toradol) Start: 10-08-2024 End: 10-08-2024 60 mg, INTRAMUSCULAR, ONCE, 1 dose, On Fri10/08/24 at 0900, Ketorolac (Toradol) is indicated for the short-term (up to 5 days) management of moderately severe acute pain. Continuation of ketorolac (Toradol) beyond 5 days increases the risk of developing serious adverse events. Please verify the duration of therapy for ketorolac (Toradol). olopatadine 2 mg/ml ophthalmic solution (3 sources) Histamine-1 Receptor Inhibitor Start: 12-23-2024 End: 01-27-2025 take 1 drop(s) into the eye(s) once daily Olopatadine (PATADAY ONCE DAILY RELIEF) 0.2 % drop Indications: Rhinoconjunctivitis Use 1 drop in both eyes once daily. 5 mL 11 12/23/2024 01/27/2025 Discontinued (Other) Pnv Cmb#95-Ferrous Fumarate-Fa (1 source) Start: 05-19-2020 End: 11-25-2023 Pnv Cmb#95-Ferrous Fumarate-Fa Discontinued 1 EA PO DAILY May 19, 2020 12:00am November 25, 2023 12:27am Pnv Cmb#95-Ferrous Fumarate-Fa 1 EACH tablet (2 sources) Start: 05-19-2020 End: 11-25-2023 Pnv Cmb#95-Ferrous Fumarate-Fa 1 EACH tablet Discontinued 1 EA PO DAILY May 19, 2020 12:00am November 25, 2023 12:27am ubrogepant 50 mg oral tablet (2 sources) Start: 10-08-2024 End: 10-08-2024 take 1 tablet by mouth once daily as needed for headache ubrogepant (UBRELVY) 50 mg tablet Indications: Intractable chronic migraine without aura and without status migrainosus Take 1 tablet by mouth once daily as needed for migraine headache (see administration instructions). 10 tablet 10/08/2024 10/08/2024 Discontinued valACYclovir 1000 mg oral tablet (10 sources) Herpesvirus Nucleoside Analog DNA Polymerase Inhibitor, Herpes Simplex Virus Nucleoside Analog DNA Polymerase Inhibitor, Herpes Zoster Virus Nucleoside Analog DNA Polymerase Inhibitor Start: 10-01-2022 End: 03-30-2023 take 1 tablet by mouth once daily as needed valACYclovir (VALTREX) 1 gram Indications: Recurrent cold sores Take 1 tablet by mouth once daily. As needed for outbreak of cold sores 30 tablet 5 10/01/2022 03/30/2023 Start: 09-10-2022 End: 09-17-2022 take 1 tablet by mouth twice daily as needed valACYclovir (VALTREX) 1 gram Indications: Recurrent cold sores Take 1 tablet by mouth twice daily for 7 days. As needed for outbreak of cold sores 14 tablet 5 09/10/2022 09/17/2022 Active Comment on above: Take 1 tablet by marquez th twice daily for 7 days. As needed for outbreak of cold sores Take 1 tablet by marquez th once daily. As needed for outbreak of cold sores Problems Active Problems Problem Classification Problem Date Documented Da te Episodic/Chronic Abdominal pain (3 sources) Abdominal pain; Translations: [Unspecified abdominal pain] 02-19-2023 Episodic Acute bronchitis (5 sources) Acute bronchitis co-occurrent with wheeze; Translations: [Acute bronchitis, unspecified] 11-25-2023 Episodic Allergic reactions (7 sources) Contact dermatitis; Translations: [Unspecified contact dermatitis, unspecified cause] Onset: 02-18-2024 02-18-2024 Episodic Chronic obstructive pulmonary disease and bronchiectasis (1 source) Bronchitis; Translations: [Bronchitis, not specified as acute or chronic] 11-26-2023 Episodic Contraceptive and procreative management (5 sources) Patient encounter status; Translations: [Encounter for other general counseling and advice on contraception] 06-05-2023 Episodic Diseases of white blood cells (3 sources) Leukocytosis; Translations: [Elevated white blood cell count, unspecified] 02-19-2023 Chronic Disorders of teeth and jaw (2 sources) Tooth disorder; Translations: [Disorder of teeth and supporting structures, unspecified] Onset: 12-23-2024 12-23-2024 Episodic Early or threatened labor (3 sources) False labor; Translations: [False labor, unspecified] 11-21-2020 Episodic External cause codes: Fall (1 source) Fall on same level due to ice and snow, initial encounter; Translations: [Fall on same level due to ice and snow, initial encounter] Onset: 07-29-2018 Headache; including migraine (3 sources) Chronic intractable migraine without aura; Translations: [Chronic migraine without aura, intractable, without status migrainosus] Onset: 10-08-2024 10-08-2024 Chronic Headache; including migraine (3 sources) Headache; Translations: [Headache] 09-02-2019 Episodic Hemorrhoids (2 sources) Bleeding external hemorrhoids; Translations: [Residual hemorrhoidal skin tags] 03-02-2024 Episodic Inflammation; infection of eye (except that caused by tuberculosis or sexually transmitteddisease) (1 source) Unspecified conjunctivitis; Translations: [Rhinoconjunctivitis] Onset: 12-23-2024 Episodic OB-related trauma to perineum and vulva (3 sources) First degree perineal laceration; Translations: [First degree perineal laceration during delivery] 11-15-2020 Episodic Other complications of (1 source) Absent blood vessel in umbilical cord; Translations: [Supervision of other high risk pregnancies, unspecified trimester] 09-13-2020 Episodic Other complications of (2 sources) Single umbilical artery; Translations: [Supervision of other high risk pregnancies, unspecified trimester] 09-13-2020 Episodic Other eye disorders (2 sources) Bilateral epiphora of eyes; Translations: [Unspecified epiphora, bilateral] 11-25-2024 Episodic Other eye disorders (2 sources) Itching of eye; Translations: [Unspecified disorder of eye and adnexa] 11-25-2024 Episodic Other eye disorders (1 source) Unspecified disorder of eye and adnexa; Translations: [Itchy eyes] Onset: 11-25-2024 Episodic Other eye disorders (1 source) Unspecified epiphora, bilateral; Translations: [Watery eyes] Onset: 11-25-2024 Episodic Other female genital disorders (2 sources) Vaginal odor; Translations: [Other specified noninflammatory disorders of vagina] Episodic Other female genital disorders (2 sources) Pruritus of vagina; Translations: [Other specified noninflammatory disorders of vagina] Episodic Other female genital disorders (1 source) Vaginal discharge; Translations: [Other specified noninflammatory disorders of vagina] 05-14-2024 Episodic Other gastrointestinal disorders (1 source) Chronic constipation; Translations: [Other constipation] 02-18-2024 Episodic Other gastrointestinal disorders (6 sources) Diarrhea; Translations: [Diarrhea, unspecified] 01-31-2025 Episodic Other gastrointestinal disorders (1 source) Diarrhea, unspecified; Translations: [Diarrhea, unspecified type] Onset: 01-31-2025 Episodic Other lower respiratory disease (1 source) Cough; Translations: [Cough] Episodic Other lower respiratory disease (1 source) Dyspnea; Translations: [Dyspnea, unspecified] 12-15-2024 Episodic Other non-traumatic joint disorders (2 sources) Pain of right wrist; Translations: [Pain in right wrist] Episodic Other nutritional; endocrine; and metabolic disorders (2 sources) Body mass index 30+ - obesity; Translations: [Body mass index (BMI) 39.0-39.9, adult] 03-02-2024 Chronic Other and delivery including normal (6 sources) Delivery normal; Translations: [Encounter for full-term uncomplicated delivery] 11-15-2020 Episodic Other screening for suspected conditions (not mental disorders or infectious disease) (1 source) Cancer cervix screening status; Translations: [Encounter for screening for malignant neoplasm of cervix] 05-14-2024 Episodic Other upper respiratory disease (2 sources) Chronic rhinitis; Translations: [Chronic rhinitis] Onset: 12-23-2024 12-23-2024 Chronic Other upper respiratory disease (1 source) Allergic rhinitis caused by mold; Translations: [Other allergic rhinitis] 12-23-2024 Chronic Other upper respiratory disease (1 source) Allergic rhinitis due to pollen; Translations: [Allergic rhinitis due to pollen] 12-23-2024 Chronic Other upper respiratory disease (1 source) Other allergic rhinitis; Translations: [Allergic rhinitis due to mold] Onset: 12-23-2024 Chronic Other upper respiratory disease (1 source) Allergic rhinitis due to pollen; Translations: [Seasonal allergic rhinitis due to pollen] Onset: 12-23-2024 Chronic Other upper respiratory disease (3 sources) Nasal congestion; Translations: [Nasal congestion] Episodic Other upper respiratory disease (1 source) Nasal congestion; Translations: [Nasal congestion] Onset: 11-25-2024 Episodic Other upper respiratory infections (2 sources) Chronic sinusitis, unspecified; Translations: [Unspecified sinusitis (chronic)] Onset: 11-17-2024 11-17-2024 Chronic Other upper respiratory infections (14 sources) Sore throat symptom; Translations: [Acute pharyngitis, unspecified] Onset: 12-05-2024 Episodic Polyhydramnios and other problems of amniotic cavity (3 sources) Amniotic fluid leaking; Translations: [Premature rupture of membranes, unspecified as to length of time between rupture and onset of labor, unspecified weeks of gestation] 09-13-2020 Episodic Residual codes; unclassified (3 sources) Gestation period, 31 weeks; Translations: [31 weeks gestation of ] 09-13-2020 Episodic Residual codes; unclassified (1 source) Illness, unspecified; Translations: [Illness, unspecified] Onset: 12-09-2024 Episodic Residual codes; unclassified (3 sources) Family history of cancer; Translations: [Family history of malignant neoplasm, unspecified] 02-03-2025 Episodic Residual codes; unclassified (1 source) Family history of breast cancer; Translations: [Family history of malignant neoplasm of breast] 02-04-2025 Episodic Residual codes; unclassified (1 source) Family history of malignant neoplasm of pancreas; Translations: [Family history of malignant neoplasm of digestive organs] 02-04-2025 Episodic Superficial injury; contusion (1 source) Blister of lip; Translations: [Blister (nonthermal) of lip, initial encounter] 07-04-2023 Episodic Unclassified (3 sources) Planned procedure; Translations: [Elective induction of labor planned] 11-15-2020 Viral infection (4 sources) Viral disease; Translations: [Viral infection, unspecified] Episodic Past or Other Problems Problem Classification Problem Date Documented Da te Episodic/Chronic Administrative/social admission (1 source) Encounter for pre-employment examination; Translations: [Encounter for pre-employment examination] Onset: 4 Episodic Bacterial infection; unspecified site (20 sources) Bacteria present; Translations: [Streptococcus, group B, as the cause of diseases classified elsewhere] Onset: 1 Resolved: 1 03-27-2021 Episodic Cardiac and circulatory congenital anomalies (20 sources) Single umbilical artery; Translations: [Congenital absence and hypoplasia of umbilical artery] Onset: 0 Resolved: 1 03-27-2021 Chronic Deficiency and other anemia (20 sources) Iron deficiency anemia; Translations: [Iron deficiency anemia, unspecified] Onset: 7 Resolved: 1 07-25-2020 Episodic Deficiency and other anemia (1 source) Iron deficiency anemia, unspecified; Translations: [Iron deficiency anemia, unspecified iron deficiency anemia type] Onset: 5 Episodic Fracture of upper limb (1 source) Displaced fracture of head of left radius, initial encounter for closed fracture; Translations: [Displaced fracture of head of left radius, initial encounter for closed fracture] Onset: 9 Episodic Gastrointestinal hemorrhage (3 sources) Rectal hemorrhage; Translations: [Hemorrhage of anus and rectum] Onset: 4 02-18-2024 Episodic Immunizations and screening for infectious disease (20 sources) Syphilis test finding; Translations: [Other specified abnormal immunological findings in serum] Onset: 5 Resolved: 7 07-16-2021 Episodic Other complications of (20 sources) History of with abortive outcome; Translations: [Supervision of with other poor reproductive or obstetric history, first trimester] Onset: 6 03-09-2020 Episodic Other complications of (20 sources) Late entry into care; Translations: [Supervision of with insufficient care, unspecified trimester] Onset: 0 Resolved: 1 09-13-2020 Episodic Other complications of (20 sources) High risk ; Translations: [Supervision of high risk , unspecified, unspecified trimester] Onset: 5 Resolved: 6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 8 hours. Fasting plasma glucose results between 100 to 125 mg/dL indicate increased risk for diabetes (prediabetes). Fasting plasma glucose results greater than or equal to 126 mg/dL meet the criteria for diagnosis of diabetes. In the absence of unequivocal hyperglycemia, results should be confirmed by repeat testing. In a patient with classic symptoms of hyperglycemia or hyperglycemic crisis, random plasma glucose results greater than or equal to 200 mg/dL meet the criteria for diagnosis of diabetes. Reference: Standards of Medical Care in Diabetes 2016, [place] Diabetes Association. Diabetes Care. 2016.39(Suppl 1). Performed By: #### 2 4323-8, 1798-8, 0-3 ####[facility] LABIA [id number] [address] [address] [place] Potassium [Moles/Vol] 4.2 mmol/L Normal 3.7-5.1 [facility] Comment on above: Order Comment: Speci men Type: BLOOD SPECIMENOrdering Facility: [facility] Address: [address] [place], [place] [address] Performed By: #### 2 4323-8, 8, 3039-3 ####[facility] LABCLIA [id number] [address] [address] [place] Protein [Mass/Vol] 7.5 g/dL Normal 6.3-8.0 [facility] Comment on above: Order Comment: Speci men Type: BLOOD SPECIMENOrdering Facility: [facility] Address: [address] [place], [place] [address] Performed By: #### 2 4323-8, 8, 3039-3 ####[facility] LABIA [id number] [place] [id number] [place] Sodium [Moles/Vol] 136 mmol/L Normal 136-144 [facility] Comment on above: Order Comment: Speci men Type: BLOOD SPECIMENOrdering Facility: [facility] Address: [address] [place] [address] Performed By: #### 2 4323-8, 8, 3039-3 ####[facility] LABIA [id number] [place] [id number] [place] Urea nitrogen [Mass/Vol] 14 mg/dL Normal 7-21 [facility] Comment on above: Order Comment: Speci men Type: BLOOD SPECIMENOrdering Facility: [facility] Address: [address] [place], [place] [address] Performed By: #### 2 4323-8, 1797-8, 0-3 ####[facility] LABIA [id number] [address] [address] [place] Gastrointestinal pathogens i dentified ROMAN+probe Nom (Stl)on 01-31-2025 Campylobacter sp DNA ROMAN+probe Nom (Unsp spec) Not detected Normal Not Detected [facility] Comment on above: Order Comment: Speci men Type: STOOL SPECIMENOrdering Facility: [facility] Address: [address] [place] [address] Performed By: #### 7 9390-1 ####[facility] LABCLIA [id number] [place] [address] [place] Salmonella sp DNA ROMAN+probe Ql (Unsp spec) Not detected Normal Not Detected [facility] Comment on above: Order Comment: Speci men Type: STOOL SPECIMENOrdering Facility: [facility] Address: [address] [place] [address] Performed By: #### 7 9390-1 ####[facility] LABCLIA [id number] [place] [address] [place] Shiga toxin stx gene ROMAN+probe Nom (Unsp spec) Not detected Normal Not Detected [facility] Comment on above: Order Comment: Speci men Type: STOOL SPECIMENOrdering Facility: [facility] Address: [address] [place] [address] Performed By: #### 7 9390-1 ####[facility] LABCLIA [id number] [place] [address] [place] Shigella sp DNA ROMAN+probe Ql (Unsp spec) Not detected Normal Not Detected [facility] Comment on above: Order Comment: Speci men Type: STOOL SPECIMENOrdering Facility: [facility] Address: [address] [place] [address] Performed By: #### 7 9390-1 ####[facility] LABCLIA [id number] [place] [address] [place] LIPASEon 01-31-2025 Lipase [Catalytic activity/Vol] 24 U/L 16 - 61 U/L [facility] Lipase SerPl-cCncon 02-01-20 25 Lipase [Catalytic activity/Vol] 24 U/L Normal 16-61 [facility] Comment on above: Order Comment: Speci men Type: BLOOD SPECIMENOrdering Facility: [facility] Address: [address] [place] [address] Performed By: #### 2 4323-8, 1798-8, 3040-3 ####[facility] LABCLIA [id number] [place] [address] [place] No Panel Informationon 01-31 Interpretation and review of laboratory results Normal [facility] XR ABDOMEN 1V SUPINEon 01-31 XR ABDOMEN 1V SUPINE * * *Final Report* * * DATE OF EXAM: Jan 31 2025 11:55AM WOX 5289 - XR ABDOMEN 1V SUPINE / PROCEDURE REASON: Diarrhea, unspecified type * * * * Physician Interpretation * * * * TITLE: XR ABDOMEN 1V SUPINE CLINICAL INDICATION: Diarrhea TECHNIQUE: Supine frontal radiograph of the abdomen COMPARISON: None FINDINGS: Visualized lung bases clear. Right upper quadrant surgical clips. Nonobstructive bowel gas pattern. Small to moderate stool burden scattered throughout the colon. Intrauterine device projects over the pelvis. Transitional lumbosacral vertebral body. 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 Right upper quadrant surgical clips. Nonobstructive bowel gas pattern. Small to moderate stool burden scattered throughout the colon. Intrauterine device projects over the pelvis. Transitional lumbosacral vertebral body. Umbilical ornament present DIVISION OF RADIOLOGY Provider, [facility] - 01/31/2025 * * *Final Report* * * DATE OF EXAM: Jan 31 2025 11:55AM WOX 5289 - XR ABDOMEN 1V SUPINE / PROCEDURE REASON: Diarrhea, unspecified type * * * * Physician Interpretation * * * * TITLE: XR ABDOMEN 1V SUPINE CLINICAL INDICATION: Diarrhea TECHNIQUE: Supine frontal radiograph of the abdomen COMPARISON: None FINDINGS: Visualized lung bases clear. Right upper quadrant surgical clips. Nonobstructive bowel gas pattern. Small to moderate stool burden scattered throughout the colon. Intrauterine device projects over the pelvis. Transitional lumbosacral vertebral body. 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 XR Abdomen Supine and Uprigh tOrdered By: [facility] Provider on 01-31-2025 [facility] CNOVon 01-27-2025 CNOV Office Visit ([facility]) MARIANNE SAUCEDO ([id number]) 2000 F Date Time Provider Department 01/27/25 1:45 PM NIKITA DANIELS WOMARA During your visit today, we recorded the following information about you: Temperature Pulse Respiration Blood pressure 98.3 degrees 76/minute 18/minute 110/75 Weight 102 kg Nikita Daniels MD 01/27/2025 1:52 PM Signed [facility] Subjective Marianne Clemensrus is a 24 year old female. Patient presents with: Nasal Congestion: Post nasal drainage causing cough x this am Patient presents with illness symptoms since this morning. She has cough, postnasal drainage, nasal congestion, and sore throat. She has daily headaches and notices no significant change in symptoms. She gets sores on her lips when she gets sick and noted a sore developing on her lower lip. Denies fever, chills, shortness of breath, body aches, nausea, vomiting, diarrhea. She has taken acetaminophen. Nasal Congestion Associated symptoms include congestion. Review of Systems HENT: Positive for congestion. Objective BP 110/75 Pulse 76 Temp 36.8 ?C (98.3 ?F) Resp 18 Wt 102 kg (224 lb 13.9 oz) LMP 05/06/2023 (Exact Date) SpO2 98% BMI 39.83 kg/m? Physical Exam Constitutional: General: She is not in acute distress. HENT: Right Ear: Tympanic membrane and ear canal normal. Left Ear: Tympanic membrane and ear canal normal. Nose: Congestion present. Right Sinus: No maxillary sinus tenderness or frontal sinus tenderness. Left Sinus: No maxillary sinus tenderness or frontal sinus tenderness. Mouth/Throat: Mouth: Mucous membranes are moist. Pharynx: Posterior oropharyngeal erythema present. No oropharyngeal exudate. Comments: Shallow superficial ulceration of the mid lower lip Eyes: Extraocular Movements: Extraocular movements intact. Conjunctiva/sclera: Conjunctivae normal. Pupils: Pupils are equal, round, and reactive to light. Cardiovascular: Rate and Rhythm: Normal rate and regular rhythm. Heart sounds: No murmur heard. Pulmonary: Effort: No respiratory distress. Breath sounds: No wheezing, rhonchi or rales. Musculoskeletal: Cervical back: Neck supple. Lymphadenopathy: Cervical: No cervical adenopathy. Neurological: Mental Status: She is alert. {ASSESSMENT/PLAN: 1. Sore throat - ICD9: 462, ICD10: J02.9 - STREP A MOLECULAR (POC) - negative. - suspect viral URI - Supportive care treatment with rest, cold medicine, and analgesia. Nikita Daniels MD Differential Diagnoses - Viral URI is more likely for the following reason(s): suggested by HANDP - chelitis - herpes labialis is less likely for the following reason(s): no vesicles and usually diffuse distribution on lips Procedures Allergies As of Date: 01/27/2025 (No Known Allergies) Date Reviewed: 01/27/2025 Reviewed by: Dia Anders LPN - Fully Assessed Reason for Visit: Nasal Congestion [235] Cmt: Post nasal drainage causing cough x this am Primary Visit Diagnosis:Sore throat [J02.9] Order(s):STREP A MOLECULAR (POC) [[id number]] Order #: [id number] #:[id number] Prescriptions as of 02/03/2025 - fluticasone (FLONASE) 50 mcg/actuation nasal spray Use 1-2 sprays in each nostril once daily. - SUMAtriptan (IMITREX) 50 mg tablet Take 1 tablet by mouth as needed for migraine headache (see administration instructions). May repeat dose after 2 hours if needed. Maximum daily dose is 200 mg per day. - levonorgestrel (MIRENA) 21 mcg/24 hours (8 yrs) 52 mg IUD 1 Each by INTRAUTERINE route as directed. - albuterol HFA (PROVENTIL HFA, VENTOLIN HFA) 90 mcg/actuation inhaler Inhale 2 Puffs as instructed every 4 hours as needed for wheezing/shortness of breath. Problem List As Of Date 01/27/2025 Noted Resolved Constipation [K59.00] 11/08/2011 11/16/2014 Teen [SXO2673] 11/16/2014 02/08/2016 Patient requested diagnostic testing [Z01.89] 11/16/2014 False positive syphilis serology [R76.8] 11/22/2014 02/13/2017 SUPRV HIGH-RISK PREG NOS [V23.9] [O09.90] 11/30/2014 02/08/2016 High risk teen in third trimester [O0*02/08/2016 02/13/2017 History of loss in prior , c*02/08/2016 History of depression [Z86.59] 02/08/2016 Nausea/vomiting in [O21.9] 02/08/2016 02/13/2017 Gastroesophageal reflux in [O99.619, *02/26/2016 02/13/2017 Abnormal laboratory test [R89.9] 02/27/2016 06/07/2016 Asymptomatic bacteriuria during in fi*02/29/2016 02/13/2017 Acute gallstone pancreatitis [K85.10] 05/06/2016 02/13/2017 Pruritus of in second trimester [O99.*05/06/2016 05/10/2016 Short interval between pregnancies affecting pr*02/13/2017 09/19/2017 History of depression [Z87.59, Z86.5*02/13/2017 09/19/2017 Pelvic pain in , antepartum [O26.899, *02/13/2017 09/19/2017 History of infection [Z (more content not included)... Normal [facility] STREP A MOLECULAR (POC)on Procedural Control Valid [facility] Strep A (POCT) Negative Negative [facility] ALGN RESP DISEASE PROF REG 5 on 12-23-2024 A. alternata IgE Qn (S) <0.35 Normal <0.35 [facility] Comment on above: Order Comment: Speci men Type: BLOOD SPECIMENOrdering Facility: [facility] Address: [address] [place] [address] Performed By: #### L [id number] ####[facility] LABIA [id number] [place] [address] [place] A. alternata IgE RAST class (S) Class 0 Normal Class 0 [facility] Comment on above: Order Comment: Speci men Type: BLOOD SPECIMENOrdering Facility: [facility] Address: [address] [place] [address] Performed By: #### L [id number] ####[facility] LABCLIA [id number] [place] [address] [place] A. fumigatus IgE Qn (S) <0.35 Normal <0.35 [facility] Comment on above: Order Comment: Speci men Type: BLOOD SPECIMENOrdering Facility: [facility] Address: [address] [place] [address] Performed By: #### L [id number] ####[facility] LABCLIA [id number] [place] [address] [place] A. fumigatus IgE RAST class (S) Class 0 Normal Class 0 [facility] Comment on above: Order Comment: Speci men Type: BLOOD SPECIMENOrdering Facility: [facility] Address: [address] [place] [address] Performed By: #### L [id number] ####[facility] LABCLIA [id number] [place] [address] [place]oese house dust mite IgE Qn (S) <0.35 Normal <0.35 [facility] Comment on above: Order Comment: Speci men Type: BLOOD SPECIMENOrdering Facility: [facility] Address: [address] [place] [address] Performed By: #### L [id number] ####[facility] LABCLIA [id number] [place] [address] [place] Faro[place] house dust mite IgE RAST class (S) Class 0 Normal Class 0 [facility] Comment on above: Order Comment: Speci men Type: BLOOD SPECIMENOrdering Facility: [facility] Address: [address] [place] [address] Performed By: #### L [id number] ####[facility] LABCLIA [id number] [place] [address] [place]uda grass IgE Qn (S) <0.35 Normal <0.35 [facility] Comment on above: Order Comment: Speci men Type: BLOOD SPECIMENOrdering Facility: [facility] Address: [address] [place], [place] [address] Performed By: #### L [id number] ####[facility] LABCLIA [id number] [place] [id number] [place] Bermuda grass IgE RAST class (S) Class 0 Normal Class 0 [facility] Comment on above: Order Comment: Speci men Type: BLOOD SPECIMENOrdering Facility: [facility] Address: [address] [place] [address] Performed By: #### L [id number] ####[facility] LABCLIA [id number] [place] [address] [place] Boxelder IgE Qn (S) <0.35 Normal <0.35 [facility] Comment on above: Order Comment: Speci men Type: BLOOD SPECIMENOrdering Facility: [facility] Address: [address] [place] [address] Performed By: #### L [id number] ####[facility] LABCLIA [id number] [place] [address] [place] Boxelder IgE RAST class (S) Class 0 Normal Class 0 [facility] Comment on above: Order Comment: Speci men Type: BLOOD SPECIMENOrdering Facility: [facility] Address: [address] [place] [address] Performed By: #### L [id number] ####[facility] LABCLIA [id number] [place] [address] [place] C. herbarum IgE Qn (S) <0.35 Normal <0.35 [facility] Comment on above: Order Comment: Speci men Type: BLOOD SPECIMENOrdering Facility: [facility] Address: [address] [place] [address] Performed By: #### L [id number] ####[facility] LABCLIA [id number] [place] [address] [place] C. herbarum IgE RAST class (S) Class 0 Normal Class 0 [facility] Comment on above: Order Comment: Speci men Type: BLOOD SPECIMENOrdering Facility: [facility] Address: [address] [place] [address] Performed By: #### L [id number] ####[facility] LABIA [id number] [address] [id number] [address] [place] Cat dander IgE Qn (S) <0.35 Normal <0.35 [facility] Comment on above: Order Comment: Speci men Type: BLOOD SPECIMENOrdering Facility: [facility] Address: [address] [place] [address] Performed By: #### L [id number] ####[facility] LABCLIA [id number] [place] [address] [place] Cat dander IgE RAST class (S) Class 0 Normal Class 0 [facility] Comment on above: Order Comment: Speci men Type: BLOOD SPECIMENOrdering Facility: [facility] Address: [address] [place] [address] Performed By: #### L [id number] ####[facility] LABCLIA [id number] [address] [place] Cocklebur IgE Qn (S) <0.35 Normal <0.35 [facility] Comment on above: Order Comment: Speci men Type: BLOOD SPECIMENOrdering Facility: [facility] Address: [address] [place] [address] Performed By: #### L [id number] ####[facility] LABCLIA [id number] [address] [place] Cocklebur IgE RAST class (S) Class 0 Normal Class 0 [facility] Comment on above: Order Comment: Speci men Type: BLOOD SPECIMENOrdering Facility: [facility] Address: [address] [place] [address] Performed By: #### L [id number] ####[facility] LABCLIA [id number] [address] [place] Cockroach IgE Qn (S) <0.35 Normal <0.35 [facility] Comment on above: Order Comment: Speci men Type: BLOOD SPECIMENOrdering Facility: [facility] Address: [address] [place] [address] Performed By: #### L [id number] ####[facility] LABCLIA [id number] [place] [address] [place] Cockroach IgE RAST class (S) Class 0 Normal Class 0 [facility] Comment on above: Order Comment: Speci men Type: BLOOD SPECIMENOrdering Facility: [facility] Address: [address] [place] [address] Performed By: #### L [id number] ####[facility] LABCLIA [id number] [place] [address] [place] Common Pigweed IgE Qn (S) <0.35 Normal <0.35 [facility] Comment on above: Order Comment: Speci men Type: BLOOD SPECIMENOrdering Facility: [facility] Address: [address] [place] [address] Performed By: #### L [id number] ####[facility] LABCLIA [id number] [place] [address] [place] Common Pigweed IgE RAST class (S) Class 0 Normal Class 0 [facility] Comment on above: Order Comment: Speci men Type: BLOOD SPECIMENOrdering Facility: [facility] Address: [address] [place] [address] Performed By: #### L [id number] ####[facility] LABCLIA [id number] [place] [address] [place] Common Ragweed IgE Qn (S) <0.35 Normal <0.35 [facility] Comment on above: Order Comment: Speci men Type: BLOOD SPECIMENOrdering Facility: [facility] Address: [address] [place] [address] Performed By: #### L [id number] ####[facility] LABCLIA [id number] [place] [id number] [place] Common Ragweed IgE RAST class (S) Class 0 Normal Class 0 [facility] Comment on above: Order Comment: Speci men Type: BLOOD SPECIMENOrdering Facility: [facility] Address: [address] [place], [place] [address] Performed By: #### L [id number] ####[facility] LABCLIA [id number] [address] [place] [address] [place] Hardy IgE Qn (S) <0.35 Normal <0.35 [facility] Comment on above: Order Comment: Speci men Type: BLOOD SPECIMENOrdering Facility: [facility] Address: [address] [place], [place] [address] Performed By: #### L [id number] ####[facility] LABCLIA [id number] [address] [place] Hardy IgE RAST class (S) Class 0 Normal Class 0 [facility] Comment on above: Order Comment: Speci men Type: BLOOD SPECIMENOrdering Facility: [facility] Address: [address] [place] [address] Performed By: #### L [id number] ####[facility] LABCLIA [id number] [address] [place] Dog dander IgE Qn (S) <0.35 Normal <0.35 [facility] Comment on above: Order Comment: Speci men Type: BLOOD SPECIMENOrdering Facility: [facility] Address: [address] [place] [address] Performed By: #### L [id number] ####[facility] LABCLIA [id number] [place] [id number] [place] Dog dander IgE RAST class (S) Class 0 Normal Class 0 [facility] Comment on above: Order Comment: Speci men Type: BLOOD SPECIMENOrdering Facility: [facility] Address: [address] [place], [place] [address] Performed By: #### L [id number] ####[facility] LABCLIA [id number] [place] [id number] [place] Ukrainian plantain IgE Qn (S) <0.35 Normal <0.35 [facility] Comment on above: Order Comment: Speci men Type: BLOOD SPECIMENOrdering Facility: [facility] Address: [address] [place] [address] Performed By: #### L [id number] ####[facility] LABCLIA [id number] [place] [address] [place] Ukrainian plantain IgE RAST class (S) Class 0 Normal Class 0 [facility] Comment on above: Order Comment: Speci men Type: BLOOD SPECIMENOrdering Facility: [facility] Address: [address] [place] [address] Performed By: #### L [id number] ####[facility] LABCLIA [id number] [place] [address] [place] house dust mite IgE Qn (S) <0.35 Normal <0.35 [facility] Comment on above: Order Comment: Speci men Type: BLOOD SPECIMENOrdering Facility: [facility] Address: [address] [place] [address] Performed By: #### L [id number] ####[facility] LABCLIA [id number] [place] [address] [place] house dust mite IgE RAST class (S) Class 0 Normal Class 0 [facility] Comment on above: Order Comment: Speci men Type: BLOOD SPECIMENOrdering Facility: [facility] Address: [address] [place], [place] [address] Performed By: #### L [id number] ####[facility] LABCLIA [id number] [place] [id number] [place] Goosefoot IgE Qn (S) <0.35 Normal <0.35 [facility] Comment on above: Order Comment: Speci men Type: BLOOD SPECIMENOrdering Facility: [facility] Address: [address] [place], [place] [address] Performed By: #### L [id number] ####[facility] LABCLIA [id number] [place] [address] [place] Goosefoot IgE RAST class (S) Class 0 Normal Class 0 [facility] Comment on above: Order Comment: Speci men Type: BLOOD SPECIMENOrdering Facility: [facility] Address: [address] [place] [address] Performed By: #### L [id number] ####[facility] LABCLIA [id number] [address], [place] [address] [place] Priyank grass smut IgE Qn (S) <0.35 Normal <0.35 [facility] Comment on above: Order Comment: Speci men Type: BLOOD SPECIMENOrdering Facility: [facility] Address: [address] [place] [address] Performed By: #### L [id number] ####[facility] LABCLIA [id number] [place] [address] [place] Priyank grass smut IgE RAST class (S) Class 0 Normal Class 0 [facility] Comment on above: Order Comment: Speci men Type: BLOOD SPECIMENOrdering Facility: [facility] Address: [address] [place] [address] Performed By: #### L [id number] ####[facility] LABCLIA [id number] [place] [address] [place] Mosher Plane IgE Qn (S) <0.35 Normal <0.35 [facility] Comment on above: Order Comment: Speci men Type: BLOOD SPECIMENOrdering Facility: [facility] Address: [address] [place] [address] Performed By: #### L [id number] ####[facility] LABCLIA [id number] [place] [id number] [place] Mosher Plane IgE RAST class (S) Class 0 Normal Class 0 [facility] Comment on above: Order Comment: Speci men Type: BLOOD SPECIMENOrdering Facility: [facility] Address: [address] [place] [address] Performed By: #### L [id number] ####[facility] LABCLIA [id number] [place] [id number] [place] Blanton Elder IgE Qn (S) <0.35 Normal <0.35 [facility] Comment on above: Order Comment: Speci men Type: BLOOD SPECIMENOrdering Facility: [facility] Address: [address] [place] [address] Performed By: #### L [id number] ####[facility] LABCLIA [id number] [place] [address] [place] Bl[place] Elder IgE RAST class (S) Class 0 Normal Class 0 [facility] Comment on above: Order Comment: Speci men Type: BLOOD SPECIMENOrdering Facility: [facility] Address: [address] [place] [address] Performed By: #### L [id number] ####[facility] LABCLIA [id number] [address] [place] Mouse urine proteins IgE Qn (S) <0.35 Normal <0.35 [facility] Comment on above: Order Comment: Speci men Type: BLOOD SPECIMENOrdering Facility: [facility] Address: [address] [place] [address] Performed By: #### L [id number] ####[facility] LABCLIA [id number] [address] [place] Mouse urine proteins IgE RAST class (S) Class 0 Normal Class 0 [facility] Comment on above: Order Comment: Speci men Type: BLOOD SPECIMENOrdering Facility: [facility] Address: [address] [place] [address] Performed By: #### L [id number] ####[facility] LABCLIA [id number] [place] [address] [place] Pecan or [place] Tree IgE Qn (S) <0.35 Normal <0.35 [facility] Comment on above: Order Comment: Speci men Type: BLOOD SPECIMENOrdering Facility: [facility] Address: [address] [place] [address] Performed By: #### L [id number] ####[facility] LABCLIA [id number] [place] [address] [place] Pecan or [place] Tree IgE RAST class (S) Class 0 Normal Class 0 [facility] Comment on above: Order Comment: Speci men Type: BLOOD SPECIMENOrdering Facility: [facility] Address: [address] [place] [address] Performed By: #### L [id number] ####[facility] LABCLIA [id number] [place] [address] [place] Sheep [place] IgE Qn (S) <0.35 Normal <0.35 [facility] Comment on above: Order Comment: Speci men Type: BLOOD SPECIMENOrdering Facility: [facility] Address: [address] [place] [address] Performed By: #### L [id number] ####[facility] LABCLIA [id number] [address] [place] Sheep [place] IgE RAST class (S) Class 0 Normal Class 0 [facility] Comment on above: Order Comment: Speci men Type: BLOOD SPECIMENOrdering Facility: [facility] Address: [address] [place], [place] [address] Performed By: #### L [id number] ####[facility] LABCLIA [id number] [place] [address] [place] Silver Birch IgE Qn (S) <0.35 Normal <0.35 [facility] Comment on above: Order Comment: Speci men Type: BLOOD SPECIMENOrdering Facility: [facility] Address: [address] [place] [address] Performed By: #### L [id number] ####[facility] LABCLIA [id number] [place] [address] [place] Silver Birch IgE RAST class (S) Class 0 Normal Class 0 [facility] Comment on above: Order Comment: Speci men Type: BLOOD SPECIMENOrdering Facility: [facility] Address: [address] [place] [address] Performed By: #### L [id number] ####[facility] LABCLIA [id number] [place] [address] [place] Jasmina IgE Qn (S) <0.35 Normal <0.35 [facility] Comment on above: Order Comment: Speci men Type: BLOOD SPECIMENOrdering Facility: [facility] Address: [address] [place] [address] Performed By: #### L [id number] ####[facility] LABCLIA [id number] [place] [address] [place] Jasmina IgE RAST class (S) Class 0 Normal Class 0 [facility] Comment on above: Order Comment: Speci men Type: BLOOD SPECIMENOrdering Facility: [facility] Address: [address] [place] [address] Performed By: #### L [id number] ####[facility] LABCLIA [id number] [place] [id number] [place] White Bentley IgE Qn (S) <0.35 Normal <0.35 [facility] Comment on above: Order Comment: Speci men Type: BLOOD SPECIMENOrdering Facility: [facility] Address: [address] [place] [address] Performed By: #### L [id number] ####[facility] LABCLIA [id number] [place] [id number] [place] White Bentley IgE RAST class (S) Class 0 Normal Class 0 [facility] Comment on above: Order Comment: Speci men Type: BLOOD SPECIMENOrdering Facility: [facility] Address: [address] [place], [place] [address] Performed By: #### L [id number] ####[facility] LABCLIA [id number] [address] [address] [place] White Elm IgE Qn (S) <0.35 Normal <0.35 [facility] Comment on above: Order Comment: Speci men Type: BLOOD SPECIMENOrdering Facility: [facility] Address: [address] [place] [address] Performed By: #### L [id number] ####[facility] LABCLIA [id number] [place] [address] [place] White Elm IgE RAST class (S) Class 0 Normal Class 0 [facility] Comment on above: Order Comment: Speci men Type: BLOOD SPECIMENOrdering Facility: [facility] Address: [address] [place], [place] [address] Performed By: #### L [id number] ####[facility] LABCLIA [id number] [place] [id number] [place] White mulberry IgE Qn (S) <0.35 Normal <0.35 [facility] Comment on above: Order Comment: Speci men Type: BLOOD SPECIMENOrdering Facility: [facility] Address: [address] [place] [address] Performed By: #### L [id number] ####[facility] LABCLIA [id number] [place] [id number] [place] White mulberry IgE RAST class (S) Class 0 Normal Class 0 [facility] Comment on above: Order Comment: Speci men Type: BLOOD SPECIMENOrdering Facility: [facility] Address: [address] [place], [place] [address] Performed By: #### L [id number] ####[facility] LABCLIA [id number] [place] [address] [place] IgE Qn (S) <0.35 Normal <0.35 [facility] Comment on above: Order Comment: Speci men Type: BLOOD SPECIMENOrdering Facility: [facility] Address: [address] [place] [address] Performed By: #### L [id number] ####[facility] LABIA [id number] [address] [place] IgE RAST class (S) Class 0 Normal Class 0 [facility] Comment on above: Order Comment: Speci men Type: BLOOD SPECIMENOrdering Facility: [facility] Address: [address] [place] [address] Performed By: #### L [id number] ####[facility] [id number] [place] [address] [place] [facility] [place] ALLERGEN SKIN TEST-FOODon FOOD ALLERGEN PERCUTANEOUS SKIN TESTING Mean Wheal & Flare Diameter ( mm) Patient has been identified by name and date of : Yes . Skin test applied by : Davina Pedroza LPN Interpreted By: Mane Hanna D.O. * Clinical significant reactions are regarded as a wheal diameter greater than or equal to 3 mm with a flare diameter greater or equal to 6mm. Control Wheal Flare Negative: 50% GLYCERIN/50% cocas; P: W = 0 mm F = 3 mm HISTAMINE, POSITIVE CONTROL (HISTAMINE BASE 6MG/ML) P: W = 8 mm F = 40 mm ALLERGENS: SHELLFISH] Clam 1:20 P: W = 0 mm F = 3 mm Crab 1:20 P: W = 0 mm F = 3 mm Lobster 1:20 P: W = 0 mm F = 3 mm Oyster 1:20 P: W = 0 mm F = 3 mm Scallop 1:20 P: W = 0 mm F = 3 mm Shrimp 1:20 P: W = 0 mm F = 3 mm [facility] ALLERGEN SKIN TEST-INHALANT 40on 12-23-2024 INHALANT 40 PERCUTANEOUS & INTRADERMAL TESTING/ Mean Wheal & Flare Diameter (mm) Patient has been identified by name and date of : Yes . Skin test applied by : Davina Pedroza LPN Interpreted By: Mane Hanna D.O. * Clinical significant reactions are regarded as a wheal diameter greater than or equal to 3 mm with a flare diameter greater or equal to 6mm. ALLERGENS Negative Control: 50%Glycerin/50%Cocas P: W = 0 mm F = 3 mm Cat Hair 10,000 BAU/ml P: W = 0 mm F = 3 mm UF Dog 1:650 P: W = 0 mm F = 3 mm Cockroach Mix 1:20 P: W = 0 mm F = 3 mm Mite Df 10,000 AU/ml P: W = 0 mm F = 3 mm Mite Dp 10,000AU/ml P: W = 0 mm F = 3 mm Alternaria Alternata 1:20 P: W = 0 mm F = 3 mm Aspergillus Fumigatus 1:20 P: W = 0 mm F = 3 mm Cladosporium sphearospermum 1:20 P: W = 0 mm F = 3 mm Epicoccum Nigrum 1:10 P: W = 0 mm F = 3 mm Fusarium Solani 1:40 P: W = 0 mm F = 3 mm Bipolaris Sorokiniana 1:20 P: W = 0 mm F = 3 mm Penicillium Mix 1:20 P: W = 0 mm F = 3 mm Bentley, White 1:20 P: W = 0 mm F = 3 mm Beech, Faroese 1:20 P: W = 0 mm F = 3 mm Birch Mix 1:20 P: W = 0 mm F = 3 mm Maple Mix 1:20 P: W = 0 mm F = 3 mm Hardy ,Eastern 1:20 P: W = 0 mm F = 3 mm [place], Shagbark 1:20 P: W = 0 mm F = 3 mm [place] Tree, Red 1:20 P: W = 0 mm F = 3 mm [place], Red 1:20 P: W = 0 mm F = 3 mm [place], Faroese/Eastern 1:20 P: W = 0 mm F = 3 mm [place] Pollen, Black 1:20 P: W = 0 mm F = 3 mm [place], Black 1:20 P: W = 0 mm F = 3 mm B[place] Grass 10,000 BAU/ml P : W = 0 mm F = 3 mm [place], Blue/Clementine 100,000 BAU/ml P: W = 0 mm F = 3 mm Fescue, [place] 100,000 BAU/ml P: W = 0 mm F = 3 mm Priyank Grass 1:20 P: W = 0 mm F = 3 mm Orchard Grass 100,000 BAU/ml P: W = 0 mm F = 3 mm Perennial [place], 100,000 BAU/ml P: W = 0 mm F = 3 mm Jasmina 100,000 BAU/ml P: W = 0 mm F = 3 mm Cocklebur 1:20 P: W = 0 mm F = 3 mm [place], sheep 1:20 P: W = 0 mm F = 3 mm Plantain, Ukrainian 1:20 P: W = 0 mm F = 3 mm Lambs Quarters 1:20 P: W = 0 mm F = 3 mm Blanton Elder, Burweed 1:20 P: W = 0 mm F = 3 mm Mugwort, Common 1:20 P: W = 0 mm F = 3 mm Pigweed, Rough 1:20 P: W = 0 mm F = 3 mm Ragweed, Mix 1:20 P: W = 0 mm F = 3 mm HISTAMINE, positive control(Histamine base 6mg/ml) P: W = 8 mm F = 40 mm [facility] ALLERGEN SKIN TEST-OTHER INH Myranda 12-23-2024 OTHER ANIMALS PERCUTANEOUS SKIN TESTING Mean Wheal & Flare Diameter (mm) Patient has been identified by name and date of : Yes . Skin test applied by : Davina Pedroza LPN Interpreted By: Mane Hanna D.O. * Clinical significant reactions are regarded as a wheal diameter greater than or equal to 3 mm with a flare diameter greater or equal to 6mm. ALLERGENS NEGATIVE CONTROL - 50%GLYCERIN/50% COCAS E: W = 0 mm F = 3 mm MIXED FEATHER (CHICKEN, DUCK, GOOSE) 1:20 P: W = 0 mm F = 3 mm HISTAMINE, Positive Control (Histamine Base 6mg/ml) P: W = 0 mm F = 3 mm [facility] CNOVon 12-23-2024 CNOV Office Visit (GILAPW) MARIANNE SAUCEDO ([id number]) 2000 F Date Time Provider Department 12/23/24 8:30 AM MANE HANNA During your visit today, we recorded the following information about you: Pulse Respiration Blood pressure Weight 79/minute 16/minute 107/74 99.8 kg Davina Pedroza LPN 12/23/2024 10:55 AM Signed Patient PCP referred patient due to chronic congestion that has gotten worse this year. Patient reports that it seems worse in the spring. Has some symptoms throughout that year. Patient has take Claritin but did not get any relief. Mane Hanna, 12/23/2024 10:55 AM Signed Allergy and Immunology 12/23/2024 PRIMARY CARE PHYSICIAN: Francesca Gill MD REFERRING PROVIDER: Francesca Gill MD Consultation requested for an allergy/immunology evaluation. My final impression and recommendations will be communicated back to the requesting physician by way of shared medical record, fax, or US mail. CHIEF COMPLAINT: Marianne is a 24-year-old female presenting for evaluation of chronic allergic symptoms. HISTORY OF PRESENT ILLNESS: Marianne reports a long-standing history of allergic symptoms, including nasal congestion, rhinorrhea, and pruritic eyes, which have worsened this year. Symptoms are perennial but intensify during the spring and the transition from fall to winter. She identifies grass exposure, particularly during mowing or direct contact, as a significant trigger. She owns a cat, a dog, and six ducks and is exposed to tobacco smoke from her father. She has tried Claritin and Zyrtec without relief and discontinued their use. She has also used Flonase on an as-needed basis but not consistently. She denies any known history of asthma or eczema and reports 1-2 sinus infections per year, treated with antibiotics. Denies reflux or dental issues. Four years ago, after consuming shrimp and crab at the [employer], she experienced facial swelling, including her lips and eyes, along with blisters on her lips. She is uncertain if this reaction was due to shellfish or concurrent sun poisoning. Since then, she has avoided shrimp, crab, lobster. She does not eat bivalves. Rhinitis/Conjunctivi tis: Nasal Symptoms: congestion, runny nose, sneezing, post nasal drip Ocular Symptoms: red, itchy, and watery Seasonality: [x] Spring [] Summer [x] Fall [] Winter [] Year-round Animal Exposure: 1 cat(s), 1 dog(s), 6 bird(s) (ducks) Tobacco smoke exposure: [] Yes [] No Medications: Claritin, Zyrtec didn't really help PRN flonase was not helpful Previous evaluation by an cardiac cath rn? [] Yes [x] No Antihistamine use in last 5 days ? [] Yes [x] No Collateral Allergy Hx: Recurrent or chronic sinusitis: [] Yes [] No 1-2 x year Nasal Polyps: [] Yes [] No Asthma: [] Yes [x] No Eczema or atopic dermatitis: [] Yes [x] No Urticaria: [] Yes [x] No Angioedema: [] Yes [x] No Food allergy: [] Yes [] No Systemic reaction to insect sting: [] Yes [x] No Reaction to penicillin antibiotics: [] Yes [x] No Reaction to latex: [] Yes [x] No Social Hx: Social History Tobacco Use Smoking status: Never Smokeless tobacco: Never Tobacco comments: parents smoke Vaping Use Vaping status: Never Used Substance Use Topics Alcohol use: No Drug use: No Employer And Job Title: No employer specified (unemployed) Years Of Education Completed: 11 years Marital Status: Single with 3 children SOCIAL HISTORY No social history on file. PAST MEDICAL HISTORY Diagnosis Date Anemia Bronchiolitis as infant resolved Cholestasis of in second trimester (HCC) 05/10/2016 Constipation 11/08/2011 depression counseling only NEGATIVE MEDICAL HISTORY normal color vision Pancreatitis ([facility]) with gallbladder issues depression Strep throat recurrent, tonsillectomy age 3 years FAMILY HISTORY Problem Relation Age of Onset Asthma Mother No Known Problems Father other (heart murmur) Sister other (heart murmur) Brother No Known Problems Brother Cancer Maternal Grandmother Adrenal Hypertension Maternal Grandmother No Known Problems Maternal Grandfather No Known Problems Paternal Grandmother No Known Problems Paternal Grandfather No Known Problems Son No Known Problems Son PAST SURGICAL HISTORY Procedure Laterality Date LAPAROSCOPY SURG CHOLECYSTECTOMY 07/21/2014 Cholecystectomy, lap MIRENA IUD 06/25/2023 Placed in office TONSILLECTOMY HX age 3 years Current Outpatient Medications Medication Sig SUMAtriptan (IMITREX) 50 mg tablet Take 1 tablet by mouth as needed for migraine headache (see administration instructions). May repeat dose after 2 hours if needed. Maximum daily dose is 200 mg per day. levonorgestrel (MIRENA) 21 mcg/24 hours (8 yrs) 52 mg IUD 1 Each by INTRAUTERINE route as directed. albuterol HFA (PROVENTIL HFA, VENTOL (more content not included)... Normal [facility] INTRACU/DERM TESTS-IMMEDIA R Xon 12-23-2024 INHALANT 40 PERCUTANEOUS & INTRADERMAL TESTING/ Mean Wheal & Flare Diameter (mm) Patient has been identified by name and date of : Yes . Skin test applied by : Davina Pedroza LPN Interpreted By: Mane Hanna D.O. * Clinical significant reactions are regarded as a wheal diameter greater than or equal to 3 mm with a flare diameter greater or equal to 6mm. ALLERGENS INTRADERMAL MIXES Negative Control - HSA ID: W = 0 mm F= 0 mm Cat Hair 100 BAU/ml ID: W = 0 mm F= 0 mm Mite DF 30 AU/ml ID: W = 0 mm F= 0 mm Mite DP 30 AU/ml ID: W = 0 mm F= 0 mm Alternaria Alternata 1:250 ID: W = 5 mm F= 10 mm Cladosporium Sphaerospermum 1:250 ID: W = 5 mm F= 7 mm Tree Mix, Eastern 7 1:500 ID: W = 3 mm F= 10 mm Grasses Mix, K-O-T 1000 BAU/ml ID: W = 0 mm F= 0 mm Special Grass Mix 1000 BAU/ml ID: W = 0 mm F= 0 mm Ragweed Mix, 1:500 ID: W = 0 mm F= 0 mm Special [place] Mix 1:500 ID: W = 0 mm F= 0 mm [facility] No Panel Informationon 12-23 [facility] CNCOon 12-17-2024 CNCO Letter Text Normal [facility] 12 Lead EKGon 12-15-2024 12 Lead EKG [facility] Cardiovascular Services [address] [place] [address] 12 Lead EKG 12/15/24 0639 MR#: [id number] Acct: [id number] Name: LEWISMARIANNE Lee UNRULY Rep #: [id number] : 2000 From: Bronson Ryan MD Attending Dr: Status: DEP ER Ordering Dr: Denzel Olmstead DO Date: 12/15/24 Location: ED Sex: F C Admitted: Test Reason : COLD SX Blood Pressure : */* mmHG Vent. Rate : 68 BPM Atrial Rate : 68 BPM P-R Int : 180 ms QRS Dur : 86 ms QT Int : 388 ms P-R-T Axes : 12 56 27 degrees QTcB Int : 412 ms Normal sinus rhythm Normal ECG Confirmed by BRONSON RYAN ([id number]), news editor KANDY PEREZ ([id number]) on 12/20/2024 8:07:49 AM Referred By: Confirmed By: BRONSON RYAN 12/20/24 08 Date Bronson Ryan MD CC: BLOSSOM-C Marcelo Barraza; Dr. Denzel Olmstead DO Signed Normal [facility] Emergency Department Summary on 12-15-2024 Emergency Department Summary [facility] Medical Records Department [address] [place] [address] Emergency Department Summary 12/15/24 MR#: [id number] Acct: [id number] Name: MARIANNE SAUCEDO UNRULY Rep #: [id number] : 2000 From: Denzel Olmstead DO PCP: ONEIL Hoyos Status:PRE ER Location: ED HPI History of Present Illness Chief Complaint: Cold Sx [facility] Medical History Physical exam, pre-employment depression Home Medications ???Medication ???Instructions ???Recorded ???Last Taken ???Type albuterol sulfate 90 mcg/actuation 1 - 2 puff inhalation Q4H PRN IA N 11/25/23 Unknown Rx aerosol inhaler (Ventolin HFA) Wheezing ##1 prednisone 20 mg tablet 20 mg PO DAILY 5 days #5 tabs 11/19 03/14 Unknown Rx Allergy/AdvReac Type Severity Reaction Status Date / Time No Known Allergies Allergy Verified 12/15/24 06:23 Surgical History History of surgery Social History Smoking Status: Never smoker EXAM Physical Exam Const Vital Signs: 12/15/24 06:23 12/15/24 06:24 Temperature 97.7 F L Temperature Source Oral Pulse Rate 73 Respiratory Rate 18 Respiratory Effort Normal Non-Labored Respiratory Pattern Normal Blood Pressure 136/62 H Blood Pressure Mean 86 Pulse Ox 99 Oxygen Delivery Method Room Air MDM MDM MDM Narrative Medical decision making narrative: HISTORY OF PRESENT ILLNESS: Chief complaint: Chest tightness 24-year-old female presents with chest tightness in the setting of recent viral URI. Patient denies chest pain or any reported chest tightness as per triage note. States she finds that she feels like she is having difficulty getting a full breath. Denies cough. Denies fever. Does note some ongoing congestion. Notes an inhaler that helps her symptoms. Denies leg swelling denies bleeding diathesis. The patient denies recent surgery in the last 4 weeks or immobilization in the last 3 days, denies previous diagnosis of DVT or PE, hemoptysis, unilateral leg swelling or malignancy with treatment the last 6 months or palliative. No estrogen use noted. Patient denies sudden onset of pain, no tearing sensation, no migratory symptoms, no new numbness, weakness or loss of sensation. Patient denies family history or personal history of Connective tissue disorders (Marfan's Syndrome, Analia Danlos etc) REVIEW OF SYSTEMS: Pertinent positives: Difficulty breathing Pertinent negatives: As per HPI PHYSICAL EXAM: Nursing triage notes reviewed, Vital signs reviewed Constitutional: please see mdm HENT: MMM Eyes: Pupils equal round and reactive to light, Extraocular muscles intact Neck: No stridor, no JVD, full neck ROM Lungs: Clear to auscultation, No wheezing or rales. No increased work of breathing, no conversational dyspnea, no accessory muscle use, no nasal flaring. No respiratory distress noted Heart: Regular rate and rhythm, No murmurs, No rubs and No gallops, 2+ distal pulses (radial, femoral, posterior tibial) in all extremities Abdomen: Soft, there is no tenderness, rigidity, rebound or guarding, no obvious peritoneal signs, no palpable pulsatile abdominal masses, no auscultated abdominal bruit : No CVAT Extremities: No edema Neuro: No new focal neurological deficits, cranial nerves II through XII intact, 5/5 strength in all present extremities. Intact sensation to light touch in all present extremities, 2+ reflexes bilateral patella tendons. Skin: No rash or lesions noted MEDICAL DECISION MAKING: Chief Complaint: please see HPI External records reviewed: Reviewed prior imaging studies: Reviewed x-ray from 12/06/2024 which showed no evidence of pneumonia Factors affecting care: none Social determinants of health: denies drug use History obtained from others: none Consults: none [facility] Narrative: The patient was initially hemodynamically stable, afebrile and nontoxic-appearing. Exam without focal lung findings. No for consolidative process. No increased work of breathing, no medical legal investigator muscle use, no belly breathing. No obvious wheezing no lower extremity edema. No stigmata of VTE or CHF on initial exam I considered the following differential diagnosis: Pneumonia, asthma exacerbation While I considered pneumonia the patient did have a fever, not hypoxic and no focal lung findings suggest pneumonia in addition to that she had a negative x-ray within the last 2 weeks with similar symptoms. And lieu of chest x-ray opted for an EKG, ambulatory pulse ox. ALL IMAGES (IF OBTAINED) HAVE BEEN PERSONALLY REVIEWED AND INTERPRETED BY MYSELF. EKG with normal sinus rhythm rate of 68, no axis, no intervals, no STEMI (more content not included)... Normal [facility] Chest PA and Lateralon 12-06 Chest PA and Lateral [facility] Imaging Services [address] [place], [place] [id number] Chest PA and Lateral MR#: [id number] Acct: [id number] Name: MARIANNE SAUCEDO UNRULY Rep #: [id number] : 2000 F 24 From: Srinath Rosas MD PCP: ONEIL Hoyos Status: PRE ER Study: Chest PA and Lateral Date of Exam: 12/06/24 Exam# [id number] Ordering Dr: Rojelio Bullock MD PROCEDURE: CHEST PA AND LATERAL 12/06/2024 REASON FOR EXAM: COUGH, SOB TECHNIQUE: Frontal and lateral views of the chest. COMPARISON: 11/25/2023 FINDINGS: The lungs are clear. Pulmonary vascularity appears within limits. No pleural effusion. The cardiac and mediastinal contours appear within limits. Status post cholecystectomy. The visualized osseous structures appear within limits. RAD/Chest PA and Lateral IMPRESSION: No evidence of acute disease. Reading Location: [facility] CC: ONEIL Barraza; Dr. Rojelio Bullock MD Supply Chain Tech: Signed Normal [facility] Emergency Department Summary on 12-06-2024 Emergency Department Summary [facility] Medical Records Department [address] [place] [id number] Emergency Department Summary 12/06/24 MR#: [id number] Acct: [id number] Name: MARIANNE SAUCEDO UNRULY Rep #: [id number] : 2000 From: Rojelio Bullock MD PCP: ONEIL Hoyos Status:REG ER Location: ED ADDENDUM by Dr. Rojelio Bullock MD on 12/06/24 at 0739 COVID/flu/RSV is negative. 12/06/24 0739 Cosigner Signature (if applicable): cc: ONEIL Barraza * Signed HPI History of Present Illness Chief Complaint: General Illness Informant: patient Narrative Narrative: 24-year-old female 3 days total of respiratory illness started with runny nose, congestion, sore throat, subjective fevers. She developed headache, some chest tightness and wheezing this morning that is not as bad right now for no particular reason, and she had 1 bout of posttussive emesis. No nausea or abdominal pain or diarrhea. She does not have a history of asthma was concerned that she was wheezing and had chest tightness. [facility] Medical History Physical exam, pre-employment depression Home Medications ???Medication ???Instructions ???Recorded ???Last Taken ???Type albuterol sulfate 90 mcg/actuation 1 - 2 puff inhalation Q4H PRN IA N 11/25/23 Unknown Rx aerosol inhaler (Ventolin HFA) Wheezing ##1 Allergy/AdvReac Type Severity Reaction Status Date / Time No Known Allergies Allergy Verified 12/06/24 05:47 Family History no significant family his Surgical History History of surgery Social History Smoking Status: Never smoker ROS ROS ED Constitutional Constitutional ED: Reports fever(s) and subjective; Denies chills ENT ENT ED: Reports nasal congestion, rhinorrhea and sore throat; Denies ear pain Cardiovascular Cardiovascular: Denies chest pain or palpitations Respiratory/Chest Respiratory/Chest: Reports cough, dyspnea and wheezing; Denies sputum Gastrointestinal Gastrointestinal: Reports vomiting; Denies abdominal pain, diarrhea or nausea Genitourinary Genitourinary ED: Denies dysuria or hematuria Musculoskeletal Musculoskeletal: Denies myalgias or neck pain Integumentary Denies abscess or rash Neurologic Neurologic: Reports headache(s); Denies paresthesias or weakness Psychiatric Psychiatric: Denies depression or suicidal thoughts Endocrine Endocrinology: Denies polydipsia or polyuria EXAM Physical Exam Const Vital Signs: 12/06/24 05:47 12/06/24 05:47 Temperature 98.1 F Temperature Source Oral Pulse Rate 78 Respiratory Rate 16 Respiratory Effort Normal Respiratory Pattern Normal Blood Pressure 131/71 H Blood Pressure Mean 91 Pulse Ox 97 Oxygen Delivery Method Room Air Positive well nourished and well developed Constitutional Narrative: Well-appearing General Appearance ED: well developed and NAD HEENT Reports TM's clear and moist mucous membranes HEENT Narrative: No trismus. No erythema or exudates in throat. normocephalic and atraumatic Tympanic Membrane ED: Yes TM's clear Throat: Negative for posterior oropharynx abnormal Eyes PERRL and EOMs intact bilaterally Neck no lymphadenopathy, supple and no meningeal signs Resp normal respiratory effort and clear to auscultation bilaterally Cardio no murmurs Rate: regular rate Rhythm: regular rhythm GI normal to inspection, nondistended, normoactive bowel sounds, non-tender and non-distended Neuro oriented x3, CN's II-XII intact bilaterally and no sensory deficits noted Sensorium / Orientation: alert Motor Exam: strength 5/5 throughout Psych mental status grossly normal Skin Lesions: no lesions Rashes: no rashes MDM MDM MDM Narrative Medical decision making narrative: Right now patient's lungs are clear, she is not having tightness, and her vital signs are normal she has no tachycardia or hypoxemia. Her exam is very benign, inconsistent with strep throat, mononucleosis, and pneumonia. Obtain a two-view chest x-ray in order to rule out pneumonia, it is normal on my interpretation. COVID/influenza/RSV swab is sent and presumably will be negative given very low prevalence of disease with regards to all 3 in the area recently. Likely viral etiology. I am having respiratory give her an albuterol inhaler along with instructions for use, no steroids indicated. Lab Data Attestation: I reviewed the patient's lab results. Radiography Diagnostic Testing: Clinical Impression(s) from Imaging Studies Chest X-Ray 12/06/24 06:10 IMPRESSION: No evidence of acute disease. Readin (more content not included)... Normal [facility] Influenza virus A and B and SARS-CoV-2 (COVID-19) and Respiratory syncytial virus RNAOrdered By: Rojelio Bullock on 12-06-2024 SARS-CoV-2 (COVID-19) RNA ROMAN+probe Ql (Unsp spec) [facility] M100.678on 12-06-2024 M100.678 SARS-CoV-2 (COVID 19) Negative INFLUENZA A Negative INFLUENZA B Negative RSV PCR Negative Normal [facility] Comment on above: Performed By: #### M 100.678 #### [facility] [address] [place], [address] CNOVon 12-05-2024 CNOV Office Visit ([facility]) MARIANNE SAUCEDO ([id number]) 2000 F Date Time Provider Department 12/05/24 2:00 PM ANN VEGA [facility] During your visit today, we recorded the following information about you: Temperature Pulse Respiration Blood pressure 97.6 degrees 80/minute 18/minute 111/80 Weight 100 kg Ann Vega, TRAFFIC CHIEF.[facility] 12/05/2024 2:46 PM Signed [facility] Subjective Marianne Saucedo is a 24 year old female. Patient presents with: Nasal Congestion: Headache, runny nose, cough, x 3 days Fever last evening Nasal Congestion Associated symptoms include congestion. URI Symptoms: - Stuffy nose, headache, and cough x3 days. - Fever of 102 degreeF last night; attempted to reduce fever with a shower, no antipyretics taken. - Sore throat today. - Denies nausea, emesis, myalgias, or chills. - No known sick contacts at home. Review of Systems HENT: Positive for congestion. Constitutional: (+) fever, (-) chills Head: (+) headache Ears/Nose/Mouth/Thro at: (+) congestion, (+) sore throat Respiratory: (+) cough Gastrointestinal: (-) nausea, (-) vomiting Musculoskeletal: (-) myalgia Objective BP 111/80 Pulse 80 Temp 36.4 ?C (97.6 ?F) Resp 18 Wt 100 kg (220 lb 7.4 oz) LMP 05/06/2023 (Exact Date) SpO2 98% BMI 39.05 kg/m? PAST MEDICAL HISTORY Diagnosis Date Anemia Bronchiolitis as resolved Cholestasis of in second trimester (HCC) 05/10/2016 Constipation 11/08/2011 depression counseling only NEGATIVE MEDICAL HISTORY normal color vision Pancreatitis ([facility]) with gallbladder issues depression Strep throat recurrent, tonsillectomy age 3 years PAST SURGICAL HISTORY Procedure Laterality Date LAPAROSCOPY SURG CHOLECYSTECTOMY 07/21/2014 Cholecystectomy, lap MIRENA IUD 06/25/2023 Placed in office TONSILLECTOMY HX age 3 years ALLERGIES Patient has no known allergies. MEDICATIONS SUMAtriptan (IMITREX) 50 mg tablet Take 1 tablet by mouth as needed for migraine headache (see administration instructions). May repeat dose after 2 hours if needed. Maximum daily dose is 200 mg per day. levonorgestrel (MIRENA) 21 mcg/24 hours (8 yrs) 52 mg IUD 1 Each by INTRAUTERINE route as directed. albuterol HFA (PROVENTIL HFA, VENTOLIN HFA) 90 mcg/actuation inhaler Inhale 2 Puffs as instructed every 4 hours as needed for wheezing/shortness of breath. Brompheniramine-Pseu doeph-DM (BROMFED DM) 2-30-10 mg/5 mL syrup Take 5 mL by mouth four times a day as needed. FAMILY HISTORY Problem Relation Age of Onset Asthma Mother No Known Problems Father other (heart murmur) Sister other (heart murmur) Brother No Known Problems Brother Cancer Maternal Grandmother Adrenal Hypertension Maternal Grandmother No Known Problems Maternal Grandfather No Known Problems Paternal Grandmother No Known Problems Paternal Grandfather No Known Problems Son No Known Problems Son Social History Tobacco Use Smoking status: Never Smokeless tobacco: Never Tobacco comments: parents smoke Vaping Use Vaping status: Never Used Substance Use Topics Alcohol use: No Drug use: No Physical Exam Vitals and nursing note reviewed. Constitutional: General: She is not in acute distress. Appearance: Normal appearance. She is not ill-appearing. HENT: Mouth/Throat: Mouth: Mucous membranes are moist. Pharynx: Uvula midline. No pharyngeal swelling or uvula swelling. Tonsils: No tonsillar exudate or tonsillar abscesses. Neurological: Mental Status: She is alert. General: No acute distress. HEENT: Mild pharyngeal erythema, no signs of otitis media. CV: Regular heart sounds. Resp: Lungs clear to auscultation. {1. Sore throat (J02.9) - Pharyngeal erythema noted on examination. - Performed rapid strep test; results negative. - Differential diagnosis includes viral upper respiratory infection. - Symptoms likely viral; advised symptomatic management. - Recommended acetaminophen or ibuprofen for antipyresis and analgesia. - Prescribed cough syrup; transmitted prescription to pharmacy. - Advised adequate hydration and rest. 2. Viral URI with cough - ICD9: 465.9, ICD10: J06.9 - BROMPHENIRAMINE-PSEU DOEPHEDRINE-DM 2 MG-30 MG-10 MG/5 ML ORAL SYRUP - Follow-up with your PCP in 3-5 days if symptoms have not improved or sooner if symptoms worsen - Discussed red flags and need for immediate medical evaluation if any occur. - Discussed supportive care treatment with fluids, rest and analgesia. - Discussed expected course of illness Ann Vega APRN.INDUSTRIAL RADIOGRAPHER Recording using [employer] software for draft documentation of the visit was discussed with the patient/authorized regional sales representative; all questions welcomed and answered. Patient/authorized regional sales representative agreed to proceed Disposition The patient was discharged. O (more content not included)... Normal [facility] STREP A MOLECULAR (POC)on Procedural Control Valid [facility] Strep A (POCT) Negative Negative [facility] CNOVon 11-25-2024 CNOV Office Visit (FAMPWS) MARIANNE SAUCEDO ([id number]) 2000 F Date Time Provider Department 11/25/24 9:00 AM [facility] During your visit today, we recorded the following information about you: Pulse Respiration Blood pressure Weight 76/minute 16/minute 100/64 100.7 kg Francesca Gill MD 11/25/2024 9:01 AM Signed Chief Complaint Patient presents with: Allergies HPI Marianne Saucedo is a 24 year old female who presents here today for allergies. Pt is having environmental allergy issues and would like to discuss allergy testing. States these symptoms started more recently and is not a chronic issue. Reports whenever she's around fresh cut grass or pollen, she experiences nasal congestion, watery/itchy eyes and her throat feels scratchy. Has taken Claritin at times when she experiences this and it does seem to help, but does not use all the time. No particular reason why she doesn't take the medication. Has tried using Flonase in the past, but doesn't really like using nasal sprays much. Is interested in getting allergy testing done so she knows what she has allergies too, possibly getting shots if needed. HM - Declines Covid vaccine. Anxiety/Depression screening completed, negative. Past medical history, appointments, medications, allergies reviewed. 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 05/10/2016 Constipation 11/08/2011 depression counseling only NEGATIVE MEDICAL HISTORY normal color vision Pancreatitis with gallbladder issues depression Strep throat recurrent, tonsillectomy age 3 years Previous Surgical History PAST SURGICAL HISTORY Procedure Laterality Date LAPAROSCOPY SURG CHOLECYSTECTOMY 07/21/2014 Cholecystectomy, lap MIRENA IUD 06/25/2023 Placed in office TONSILLECTOMY HX age 3 years Family History FAMILY HISTORY Problem Relation Age of Onset Asthma Mother No Known Problems Father other (heart murmur) Sister other (heart murmur) Brother No Known Problems Brother Cancer Maternal Grandmother Adrenal Hypertension Maternal Grandmother No Known Problems Maternal Grandfather No Known Problems Paternal Grandmother No Known Problems Paternal Grandfather No Known Problems Son No Known Problems Son Patient Allergies ALLERGIES No Known Allergies Current Medications Current Outpatient Medications on File Prior to Visit Medication Sig SUMAtriptan (IMITREX) 50 mg tablet Take 1 tablet by mouth as needed for migraine headache (see administration instructions). May repeat dose after 2 hours if needed. Maximum daily dose is 200 mg per day. levonorgestrel (MIRENA) 21 mcg/24 hours (8 yrs) 52 mg IUD 1 Each by INTRAUTERINE route as directed. albuterol HFA (PROVENTIL HFA, VENTOLIN HFA) 90 mcg/actuation inhaler Inhale 2 Puffs as instructed every 4 hours as needed for wheezing/shortness of breath. sertraline (ZOLOFT) 50 mg tablet Take 1 tablet by mouth once daily. No current facility-administere d medications on file prior to visit. Social History Social History Tobacco Use Smoking status: Never Smokeless tobacco: Never Tobacco comments: parents smoke Vaping Use Vaping status: Never Used Substance Use Topics Alcohol use: No Drug use: No EXAM: BP 100/64 (BP Site: Left Arm, BP Position: Sitting, BP Cuff Size: Large Adult) Pulse 76 Resp 16 Wt 100.7 kg (222 lb 0.1 oz) LMP 05/06/2023 (Exact Date) BMI 39.33 kg/m? General Appearance: Well appearing, alert, in no acute distress, well-hydrated, well nourished and Obese. Ears: External ears normal, canals clear. Oropharynx: Lips, mucosa, and tongue normal, teeth and gums normal, oropharynx normal. Neck: Supple, no adenopathy; thyroid symmetric, normal size, no bruits. Lungs: Lungs clear to auscultation. No wheezing, rhonchi, rales.. Heart: RRR without murmur, gallop, or rubs. No ectopy. Health Maintenance List Depression Screening Never done Anxiety Screening Never done Covid-19 Vaccine() due on 03/21/2024 Influenza Vaccine(Season Ended) due on 03/21/2025 Cervical Cancer Screening due on 05/14/2027 DTaP,Tdap,Td Vaccine(10 - Td or Tdap) due on 08/21/2030 Hepatitis B Vaccine Completed HPV Vaccine Completed Hepatitis C Screening Completed HIV Screening Completed Data reviewed None ASSESSMENT/PLAN: 1. Environmental allergies - ICD9: V15.09, ICD10: Z91.09 (primary diagnosis) - Consult Allergy to discuss possible allergy testing - Discussed OTC Claritin/Flonase 2. Itchy eyes - ICD9: 379.99, ICD10: H57.9 - as noted above - Eye drops 3. Nasal congestion - ICD9: 478.19, ICD10: R09.81 - as noted above - Use Flonase 4. Watery eyes - ICD9: 375.20, ICD10: H04.203 - As noted above - eye drops 5. Encou (more content not included)... Normal [facility] CNOVon 11-17-2024 CNOV Office Visit ([facility]) MARIANNE SAUCEDO ([id number]) 2000 F Date Time Provider Department 11/17/24 1:45 PM JOB PEREIRA [facility] During your visit today, we recorded the following information about you: Temperature Pulse Respiration Blood pressure 97.6 degrees 90/minute 16/minute 118/72 Weight 100.6 kg Job Pereira APRN.INDUSTRIAL RADIOGRAPHER 11/17/2024 2:02 PM Signed [facility] Subjective Marianne Saucedo is a 24 year old female. Patient presents with: Sore Throat: nasal congestion, drainage and nausea x 1 week Patient came in with complaints of a weeks worth of sinus congestion drainage sore throat. Patient says it does not seem to be getting better. Patient denies any shortness of breath or other symptoms. The history is provided by the patient. No heat and frost insulator was used. Sore Throat Associated symptoms include congestion. Review of Systems Constitutional: Negative. HENT: Positive for congestion and sore throat. Objective BP 118/72 Pulse 90 Temp 36.4 ?C (97.6 ?F) Resp 16 Wt 100.6 kg (221 lb 12.5 oz) LMP 05/06/2023 (Exact Date) SpO2 99% BMI 39.29 kg/m? Physical Exam Constitutional: Appearance: Normal appearance. HENT: Right Ear: Tympanic membrane, ear canal and external ear normal. Left Ear: Tympanic membrane, ear canal and external ear normal. Nose: Nose normal. Mouth/Throat: Mouth: Mucous membranes are moist. Eyes: Pupils: Pupils are equal, round, and reactive to light. Cardiovascular: Rate and Rhythm: Normal rate and regular rhythm. Heart sounds: Normal heart sounds. Pulmonary: Effort: Pulmonary effort is normal. Breath sounds: Normal breath sounds. Neurological: Mental Status: She is alert. PAST MEDICAL HISTORY Diagnosis Date Anemia Bronchiolitis as infant resolved Cholestasis of in second trimester 05/10/2016 Constipation 11/08/2011 depression counseling only NEGATIVE MEDICAL HISTORY normal color vision Pancreatitis with gallbladder issues depression Strep throat recurrent, tonsillectomy age 3 years PAST SURGICAL HISTORY Procedure Laterality Date LAPAROSCOPY SURG CHOLECYSTECTOMY 07/21/2014 Cholecystectomy, lap MIRENA IUD 06/25/2023 Placed in office TONSILLECTOMY HX age 3 years ALLERGIES Patient has no known allergies. MEDICATIONS SUMAtriptan (IMITREX) 50 mg tablet Take 1 tablet by mouth as needed for migraine headache (see administration instructions). May repeat dose after 2 hours if needed. Maximum daily dose is 200 mg per day. levonorgestrel (MIRENA) 21 mcg/24 hours (8 yrs) 52 mg IUD 1 Each by INTRAUTERINE route as directed. albuterol HFA (PROVENTIL HFA, VENTOLIN HFA) 90 mcg/actuation inhaler Inhale 2 Puffs as instructed every 4 hours as needed for wheezing/shortness of breath. sertraline (ZOLOFT) 50 mg tablet Take 1 tablet by mouth once daily. FAMILY HISTORY Problem Relation Age of Onset Asthma Mother No Known Problems Father other (heart murmur) Sister other (heart murmur) Brother No Known Problems Brother Cancer Maternal Grandmother Adrenal Hypertension Maternal Grandmother No Known Problems Maternal Grandfather No Known Problems Paternal Grandmother No Known Problems Paternal Grandfather No Known Problems Son No Known Problems Son Social History Tobacco Use Smoking status: Never Smokeless tobacco: Never Tobacco comments: parents smoke Vaping Use Vaping status: Never Used Substance Use Topics Alcohol use: No Drug use: No {ASSESSMENT/PLAN: 1. Sore throat - ICD9: 462, ICD10: J02.9 (primary diagnosis) - Group A strep molecular testing negative - Discussed supportive care treatment with fluids, rest and analgesia. - STREP A MOLECULAR (POC) 2. Rhinosinusitis - ICD9: 473.9, ICD10: J32.9 - Will begin treatment with as per antibiotic as written, see orders - AMOXICILLIN 875 MG-POTASSIUM CLAVULANATE 125 MG TABLET Job Pereira APRN.INDUSTRIAL RADIOGRAPHER History and Record Review External record(s) reviewed: no prior records. Disposition The patient was discharged. Procedures Allergies As of Date: 11/17/2024 (No Known Allergies) Date Reviewed: 11/17/2024 Reviewed by: Sindy Villarreal MA - Fully Assessed Reason for Visit: Sore Throat [200] Cmt: nasal congestion, drainage and nausea x 1 week Primary Visit Diagnosis:Sore throat [J02.9] Other Visit Diagnosis:Rhinosinus itis [J32.9] Order(s):STREP A MOLECULAR (POC) [5558871] Order #: [id number]. #:[id number] amoxicillin-clavulan ate potassium (AUGMENTIN) 875-125 mg per tabletTake 1 tablet by mouth two times a day for 7 days.Disp: 14 tabletRfl: 0 Prescriptions as of 11/17/2024 - amoxicillin-clavulan ate potassium (AUGMENTIN) 875-125 mg per tablet Take 1 tablet by mouth two times a day for 7 days. - SUMAtriptan (IMITREX) 50 mg tablet Take 1 tablet by mouth as needed (more content not included)... Normal [facility] STREP A MOLECULAR (POC)on Procedural Control Valid [facility] Strep A (POCT) Negative Negative [facility] CBC W Auto Differential pane l (Bld)on 10-08-2024 Basophils (Bld) [#/Vol] 0.12 10*3/uL High <0.11 [facility] Comment on above: Order Comment: Speci men Type: BLOOD SPECIMENOrdering Facility: [facility] Address: [address] [place] [address] Performed By: #### 5 7021-8 ####[facility] LABCLIA [id number] [place] [address] [place] Basophils/100 WBC (Bld) 1.1 % Normal [facility] Comment on above: Order Comment: Speci men Type: BLOOD SPECIMENOrdering Facility: [facility] Address: [address] [place] [address] Performed By: #### 5 7021-8 ####[facility] LABCLIA [id number] [place] [address] [place] Differential cell count method Nom (Bld) Auto Normal [facility] Comment on above: Order Comment: Speci men Type: BLOOD SPECIMENOrdering Facility: [facility] Address: [address] [place] [address] Performed By: #### 5 7021-8 ####[facility] LABCLIA [id number] [place] [address] [place] Eosinophils (Bld) [#/Vol] 0.31 10*3/uL Normal <0.46 [facility] Comment on above: Order Comment: Speci men Type: BLOOD SPECIMENOrdering Facility: [facility] Address: [address] [place] [address] Performed By: #### 5 7021-8 ####[facility] LABIA [id number] [address] [address] [place] Eosinophils/100 WBC (Bld) 2.7 % Normal [facility] Comment on above: Order Comment: Speci men Type: BLOOD SPECIMENOrdering Facility: [facility] Address: [address] [place] [address] Performed By: #### 5 7021-8 ####[facility] LABIA [id number] [place] [address] [place] Erythrocyte distribution width (RBC) [Ratio] 12.2 % Normal 11.5-15.0 [facility] Comment on above: Order Comment: Speci men Type: BLOOD SPECIMENOrdering Facility: [facility] Address: [address] [place] [address] Performed By: #### 5 7021-8 ####[facility] LABIA [id number] [place] [address] [place] Hematocrit (Bld) [Volume fraction] 42.5 % Normal 36.0-46.0 [facility] Comment on above: Order Comment: Speci men Type: BLOOD SPECIMENOrdering Facility: [facility] Address: [address] [place] [address] Performed By: #### 5 7021-8 ####[facility] LABIA [id number] [address] [address] [place] Hemoglobin (Bld) [Mass/Vol] 13.8 g/dL Normal 11.5-15.5 [facility] Comment on above: Order Comment: Speci men Type: BLOOD SPECIMENOrdering Facility: [facility] Address: [address] [place] [address] Performed By: #### 5 7021-8 ####[facility] LABCLIA [id number] [address] [address] [place] Immature granulocytes (Bld) [#/Vol] 0.05 10*3/uL Normal <0.10 [facility] Comment on above: Order Comment: Speci men Type: BLOOD SPECIMENOrdering Facility: [facility] Address: [address] [place] [address] Performed By: #### 5 7021-8 ####[facility] LABCLIA [id number] [place] [address] [place] Immature granulocytes/100 WBC (Bld) 0.4 % Normal [facility] Comment on above: Order Comment: Speci men Type: BLOOD SPECIMENOrdering Facility: [facility] Address: [address] [place] [address] Performed By: #### 5 7021-8 ####[facility] LABIA [id number] [place] [address] [place] Lymphocytes (Bld) [#/Vol] 2.56 10*3/uL Normal 1.00-4.00 [facility] Comment on above: Order Comment: Speci men Type: BLOOD SPECIMENOrdering Facility: [facility] Address: [address] [place] [address] Performed By: #### 5 7021-8 ####[facility] LABIA [id number] [place] [address] [place] Lymphocytes/100 WBC (Bld) 22.6 % Normal [facility] Comment on above: Order Comment: Speci men Type: BLOOD SPECIMENOrdering Facility: [facility] Address: [address] [place] [address] Performed By: #### 5 7021-8 ####[facility] LABCLIA [id number] [place] [id number] [place] MCH (RBC) [Entitic mass] 29.5 pg Normal 26.0-34.0 [facility] Comment on above: Order Comment: Speci men Type: BLOOD SPECIMENOrdering Facility: [facility] Address: [address] [place] [address] Performed By: #### 5 7021-8 ####[facility] LABCLIA [id number] [place] [id number] [place] MCHC (RBC) [Mass/Vol] 32.5 g/dL Normal 30.5-36.0 [facility] Comment on above: Order Comment: Speci men Type: BLOOD SPECIMENOrdering Facility: [facility] Address: [address] [place] [address] Performed By: #### 5 7021-8 ####[facility] LABIA [id number] [place] [address] [place] MCV (RBC) [Entitic vol] 90.8 fL Normal 80.0-100.0 [facility] Comment on above: Order Comment: Speci men Type: BLOOD SPECIMENOrdering Facility: [facility] Address: [address] [place] [address] Performed By: #### 5 7021-8 ####[facility] LABIA [id number] [place] [address] [place] Monocytes (Bld) [#/Vol] 0.77 10*3/uL Normal <0.87 [facility] Comment on above: Order Comment: Speci men Type: BLOOD SPECIMENOrdering Facility: [facility] Address: [address] [place] [address] Performed By: #### 5 7021-8 ####[facility] LABIA [id number] [place] [address] [place] Monocytes/100 WBC (Bld) 6.8 % Normal [facility] Comment on above: Order Comment: Speci men Type: BLOOD SPECIMENOrdering Facility: [facility] Address: [address] [place] [address] Performed By: #### 5 7021-8 ####[facility] LABCLIA [id number] [facility] [address], [place] [address] [place] Neutrophils (Bld) [#/Vol] 7.54 10*3/uL High 1.45-7.50 [facility] Comment on above: Order Comment: Speci men Type: BLOOD SPECIMENOrdering Facility: [facility] Address: [address] [place] [address] Performed By: #### 5 7021-8 ####[facility] LABCLIA [id number] [address], [place] [address] [place] Neutrophils/100 WBC (Bld) 66.4 % Normal [facility] Comment on above: Order Comment: Speci men Type: BLOOD SPECIMENOrdering Facility: [facility] Address: [address] [place] [address] Performed By: #### 5 7021-8 ####[facility] LABCLIA [id number] [facility] [address], [place] [address] [place] Nucleated RBC (Bld) [#/Vol] 10*3/uL Normal <0.01 [facility] Comment on above: Order Comment: Speci men Type: BLOOD SPECIMENOrdering Facility: [facility] Address: [address] [place] [address] Performed By: #### 5 7021-8 ####[facility] LABCLIA [id number] [facility] [place] [address] [place] Nucleated RBC/100 WBC (Bld) [Ratio] 0.0 /100 WBC Normal [facility] Comment on above: Order Comment: Speci men Type: BLOOD SPECIMENOrdering Facility: [facility] Address: [address] [place] [address] Performed By: #### 5 7021-8 ####[facility] LABCLIA [id number] [place] [address] [place] Platelet mean volume (Bld) [Entitic vol] 10.5 fL Normal 9.0-12.7 [facility] Comment on above: Order Comment: Speci men Type: BLOOD SPECIMENOrdering Facility: [facility] Address: [address] [place] [address] Performed By: #### 5 7021-8 ####[facility] LABCLIA [id number] [place] [address] [place] Platelets (Bld) [#/Vol] 411 10*3/uL High 150-400 [facility] Comment on above: Order Comment: Speci men Type: BLOOD SPECIMENOrdering Facility: [facility] Address: [address] [place] [address] Performed By: #### 5 7021-8 ####[facility] LABIA [id number] [place] [address] [place] RBC (Bld) [#/Vol] 4.68 10*6/uL Normal 3.90-5.20 [facility] Comment on above: Order Comment: Speci men Type: BLOOD SPECIMENOrdering Facility: [facility] Address: [address] [place] [address] Performed By: #### 5 7021-8 ####[facility] LABIA [id number] [place] [address] [place] WBC (Bld) [#/Vol] 11.35 10*3/uL High 3.70-11.00 [facility] Comment on above: Order Comment: Speci men Type: BLOOD SPECIMENOrdering Facility: [facility] Address: [address] [place] [address] Performed By: #### 5 7021-8 ####[facility] LABIA [id number] [place] [id number] [place] CNOVon 10-08-2024 CNOV Office Visit (FAMPWS) MARIANNE SAUCEDO ([id number]) 2000 F Date Time Provider Department 10/08/24 8:40 AM SAM OSBORNE During your visit today, we recorded the following information about you: Pulse Blood pressure Weight 80/minute 104/69 98 kg Sam Osborne, TRAFFIC CHIEF.INDUSTRIAL RADIOGRAPHER 10/08/2024 8:48 AM Signed Chief Complaint Patient presents with: Headache: X 2 days HPI Marianne Saucedo is a 24 year old female who presents here today for Above Complaints.. Patient presents today with headache x2 days. Patient states she had a prior headache for 3 weeks which she took tylenol, ibuprofen, advil and Excedrin and it broke on its own. After two weeks the migraine returned two days ago. Patient states she has not taken anything for her headache. She is having light sensitivity and sound sensitivity but denies aura prior to her migraines, numbness and tingling and weakness. Patient states the pain is either on her left tenriism or in between her eyes. Patient denies nausea and vomiting. Patient denies this being the worst headache she has ever had. Patient denies fever, chills, chest pain and SOB. Past medical history, appointments, medications, allergies reviewed. Previous Medical History PAST MEDICAL HISTORY Diagnosis Date Anemia Bronchiolitis as resolved Cholestasis of in second trimester 05/10/2016 Constipation 11/08/2011 depression counseling only NEGATIVE MEDICAL HISTORY normal color vision Pancreatitis with gallbladder issues depression Strep throat recurrent, tonsillectomy age 3 years Previous Surgical History PAST SURGICAL HISTORY Procedure Laterality Date LAPAROSCOPY SURG CHOLECYSTECTOMY 07/21/2014 Cholecystectomy, lap MIRENA IUD 06/25/2023 Placed in office TONSILLECTOMY HX age 3 years Family History FAMILY HISTORY Problem Relation Age of Onset Asthma Mother No Known Problems Father other (heart murmur) Sister other (heart murmur) Brother No Known Problems Brother Cancer Maternal Grandmother Adrenal Hypertension Maternal Grandmother No Known Problems Maternal Grandfather No Known Problems Paternal Grandmother No Known Problems Paternal Grandfather No Known Problems Son No Known Problems Son Patient Allergies ALLERGIES No Known Allergies Current Medications Current Outpatient Medications on File Prior to Visit Medication Sig levonorgestrel (MIRENA) 21 mcg/24 hours (8 yrs) 52 mg IUD 1 Each by INTRAUTERINE route as directed. albuterol HFA (PROVENTIL HFA, VENTOLIN HFA) 90 mcg/actuation inhaler Inhale 2 Puffs as instructed every 4 hours as needed for wheezing/shortness of breath. sertraline (ZOLOFT) 50 mg tablet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 Performed By: #### 2 [id number] #### [facility] [address] [place] [address] [place] Absolute 0.6 E3/mcL Normal 0.0-0.7 [facility] Comment on above: Order Comment: Order Added by Kash Expert. Performed By: #### 2 [id number] #### [facility] [address] [place] [address] Monocytes/100 WBC (Bld) 6.2 % Normal 0.0-10.0 [facility] Comment on above: Order Comment: Order Added by Kash Expert. Performed By: #### 2 [id number] #### [facility] [address] [place] [address] Neutro Absolute 6.8 E3/mcL High 1.4-6.5 [facility] Comment on above: Order Comment: Order Added by Discern Expert. Performed By: #### 2 [id number] #### [facility] [address] [place] [address] Neutro Auto 66.1 % Normal 37.0-75.0 [facility] Comment on above: Order Comment: Order Added by Discern Expert. Performed By: #### 2 [id number] #### [facility] [address] [place] [address] BMPon 07-08-2018 Anion gap [Moles/Vol] 13 mmol/L Normal 10-20 [facility] Comment on above: Performed By: #### 2 [id number] #### [facility] [employer] [address] [place] [address] Calcium [Mass/Vol] 9.9 mg/dL Normal 8.5-10.7 [facility] Comment on above: Performed By: #### 2 [id number] #### [facility] [employer] [address] [place] [address] Chloride [Moles/Vol] 107 mmol/L Normal 98-[address] [facility] Comment on above: Performed By: #### 2 [id number] #### [facility] [employer] [address] [place] [address] CO2 [Moles/Vol] 22.0 mmol/L Normal 21.0-32.0 [facility] Comment on above: Performed By: #### 2 [id number] #### [facility] [employer] [address] [place] [address] Creatinine [Mass/Vol] 0.6 mg/dL Normal 0.5-1.1 [facility] Comment on above: Performed By: #### 2 [id number] #### [facility] [employer] [address] [place] [address] Glucose [Mass/Vol] 91 mg/dL Normal 70-99 [facility] Comment on above: Performed By: #### 2 [id number] #### [facility] [employer] [address] [place] [address] Potassium [Moles/Vol] 3.9 mmol/L Normal 3.5-5.3 [facility] Comment on above: Performed By: #### 2 [id number] #### [employer] [address] [place] [address] 89199 Sodium [Moles/Vol] 138 mmol/L Normal 136-145 [facility] Comment on above: Performed By: #### 2 [id number] #### [employer] [address] [place] [address] 57018 Urea nitrogen [Mass/Vol] 16 mg/dL Normal 6-23 [facility] Comment on above: Performed By: #### 2 [id number] #### [employer] [address] [place] [address] 24367 Urea nitrogen/Creatinine [Mass ratio] 26.7 ratio Normal 5.4-30.0 [facility] Comment on above: Performed By: #### 2 [id number] #### [facility] [employer] [address] [place] [address] 79083 CBC w/ Auto Diffon 8 Erythrocyte distribution width (RBC) [Ratio] 13.9 % Normal 11.5-14.5 [facility] Comment on above: Performed By: #### 2 [id number] #### FAUZIA RemHemo [address] [place], [place] [address] Hematocrit (Bld) [Volume fraction] 41.2 % Normal 36.0-48.0 [facility] Comment on above: Performed By: #### 2 [id number] #### FAUZIA RemHemo [address] [place] [address] 45094 Hemoglobin (Bld) [Mass/Vol] 13.6 g/dL Normal 12.0-16.0 [facility] Comment on above: Performed By: #### 2 [id number] #### FAUZIA RemHemo [address] [place] [address] 68308 MCH (RBC) [Entitic mass] 28.4 pg Normal 27.0-31.0 [facility] Comment on above: Performed By: #### 2 [id number] #### FAUZIA RemHemo [address] [place] [address] 95328 MCHC (RBC) [Mass/Vol] 33.1 g/dL Normal 33.0-37.0 [facility] Comment on above: Performed By: #### 2 [id number] #### FAUZIA RemHemo [address] [place] [address] 35387 MCV (RBC) [Entitic vol] 85.7 fL Normal 78.0-100.0 [facility] Comment on above: Performed By: #### 2 [id number] #### FAUZIA GonzalezHemo [facility] [place] [id number] Platelet mean volume (Bld) [Entitic vol] 8.5 fL Normal 7.4-11.0 [facility] Comment on above: Performed By: #### 2 [id number] #### FAUZIA RemHemo [facility] [place] [id number] Platelets (Bld) [#/Vol] 373 E3/mcL Normal 130-400 [facility] Comment on above: Performed By: #### 2 [id number] #### FAUZIA GonzalezHemo [address] [place], [place] [address] RBC (Bld) [#/Vol] 4.81 E6/mcL Normal 3.90-5.40 [facility] Comment on above: Performed By: #### 2 888305 #### FAUZIA RemHemo [facility] [place] [address]42[address] WBC (Bld) [#/Vol] 10.2 E3/mcL Normal 3.6-11.0 [facility] Comment on above: Performed By: #### 2 [id number] #### FAUZIA GonzalezHemo [address] [place], [place] [address] Ethanolon 07-08-2018 Ethanol [Mass/Vol] mg/dL Normal <=10 [facility] Comment on above: Performed By: #### 2 [id number] #### FA[facility]IA Urinalysis Manual Subsection [address] [place], [place] [address] Hep Func Panelon 07-08-2018 Albumin [Mass/Vol] 4.5 g/dL Normal 3.4-5.0 [facility] Comment on above: Performed By: #### 2 775230 #### [employer] [address] [place], [place] [address] Albumin/Globulin [Mass ratio] 1.3 {ratio} Normal 1.1-1.9 [facility] Comment on above: Performed By: #### 2 699073 #### [employer] [address] [place] [address] Alk Phos 128 Int._Unit/L High 33-110 [facility] Comment on above: Performed By: #### 2 [id number] #### [employer] [address] [place], [place] [address] ALT [Catalytic activity/Vol] 26 Int._Unit/L Normal 7-45 [facility] Comment on above: Performed By: #### 2 753130 #### [employer] [address] [place] [address] AST [Catalytic activity/Vol] 21 Int._Unit/L Normal 9-39 [facility] Comment on above: Performed By: #### 2 608621 #### [employer] [address] [place] [address] Bili Direct 0.11 mg/dL Normal 0.00-0.30 [facility] Comment on above: Performed By: #### 2 969858 #### [employer] [address] [place] [address] Bili Indirect 0.38 mg/dL Normal [facility] Comment on above: Result Comment: No e stablished ranges available for the indirect bilirubin Performed By: #### 2 [id number] #### [employer] [address] [place] [address] Bili Total 0.49 mg/dL Normal 0.00-1.20 [facility] Comment on above: Performed By: #### 2 127297 #### [employer] [address] [place], [place] [address] Globulin (S) [Mass/Vol] 3.0 g/dL Normal 2.0-4.0 [facility] Comment on above: Performed By: #### 2 [id number] #### [employer] [address] [place], [place] [address] Protein [Mass/Vol] 7.9 g/dL Normal 6.4-8.2 [facility] Comment on above: Performed By: #### 2 784542 #### [employer] [address] [place] [address] Salicylateon 07-08-2018 Salicylate Lvl <1.5 Low 4.0-20.0 [facility] Comment on above: Performed By: #### 2 757314 #### FA[facility] Urinalysis Manual Subsection [address] [place] [address] U BhCG Qlton 07-08-2018 HCG.beta subunit Qn Negative Normal Neg [facility] Comment on above: Performed By: #### 2 862144 #### [facility] Urinalysis Manual Subsection [address] [place] [address] U Drug Screenon 07-08-2018 U Amph Scr Negative Normal [facility] Comment on above: Performed By: #### 2 389307 #### FAUZIA RemHemo [address] [place] [address] U Bernadine Scr Negative Normal [facility] Comment on above: Performed By: #### 2 390396 #### FAU[employer]IA RemHemo [address] [place] [address] U Benzodia Scr Negative Normal [facility] Comment on above: Performed By: #### 2 432743 #### FAUZAI RemHemo [address] [place] [address] U Cannab Scr Negative Normal [facility] Comment on above: Performed By: #### 2 [id number] #### [employer]IA RemHemo [address] [place] [address] U Cocaine Scr Negative Normal [facility] Comment on above: Performed By: #### 2 487345 #### FAUZIA RemHemo [address] [place] [address] U Opiate Scr Negative Normal [facility] Comment on above: Performed By: #### 2 446473 #### [employer] RemHemo [address] [place] [address] U PCP Scr Negative Normal [facility] Comment on above: Performed By: #### 2 046283 #### FAUZIA RemHemo [address] [place] [address] UA Completeon 07-08-2018 Color (U) Straw Normal Yellow [facility] Comment on above: Performed By: #### 8 [id number] #### FA[facility]IA Urinalysis Automated Subsection [address] [place] [address] Glucose (U) [Mass/Vol] Negative Normal Negative [facility] Comment on above: Performed By: #### 8 [id number] #### [facility] Urinalysis Automated Subsection [address] [place] [address] Ketones Ql (U) Negative Normal Negative [facility] Comment on above: Performed By: #### 8 [id number] #### [facility] Urinalysis Automated Subsection [address] [place] [address] RBC (U) [#/Vol] 0-3 Normal 0-3 [facility] Comment on above: Performed By: #### 8 [id number] #### [facility] Urinalysis Automated Subsection [address] [place] [address] UA Blood Negative Normal Negative [facility] Comment on above: Performed By: #### 8 [id number] #### [facility] Urinalysis Automated Subsection [facility] [place] [address] UA Clarity Clear Normal Clear [facility] Comment on above: Performed By: #### 8 [id number] #### [facility] Urinalysis Automated Subsection [facility] [place] [address] UA Leuk Est Negative Normal Negative [facility] Comment on above: Performed By: #### 8 [id number] #### [employer] Urinalysis Automated Subsection [address] [place] [address] UA Nitrite Negative Normal Negative [facility] Comment on above: Performed By: #### 8 [id number] #### [facility] Urinalysis Automated Subsection [facility] [place] [address] UA pH 6.0 Normal 4.6-8.0 [facility] Comment on above: Performed By: #### 8 [id number] #### [facility] Urinalysis Automated Subsection [address] [place] [address] UA Protein Negative Normal Negative [facility] Comment on above: Performed By: #### 8 [id number] #### [facility] Urinalysis Automated Subsection [facility] [place] [address] UA Spec Grav 1.006 Normal 1.003-1.030 [facility] Comment on above: Performed By: #### 8 [id number] #### [facility] Urinalysis Automated Subsection [address] [place] [address] UA Urobilinogen Negative [facility] Comment on above: Result Comment: Due to a manufacturing issue, low positive urobilinogen results may be fasely positive. Correlate with urine bilirubin and additional clinical/laboratory findings to assess the risk of hemolytic anemia or liver disease. If clinically indicated, repeat testing with an alternate method is available by contacting the laboratory within 24 hours. Performed By: #### 8 [id number] #### [facility] Urinalysis Automated Subsection [address] [place] [address] UA WBC 0-5 Normal 0-5 [facility] Comment on above: Performed By: #### 8 [id number] #### [facility] Urinalysis Automated Subsection [address] [place] [id number] Urobilinogen Qn (U) Negative Normal Negative [facility] Comment on above: Performed By: #### 8 [id number] #### FA[facility]ZIA Urinalysis Automated Subsection [facility] [place] [address] XR Chest 2 Viewson 8 XR Chest 2 Views Exam Date/Time: 07/08/2018 16:17 EST Reason for Exam: Medical Clearance;Other (please specify) Report STUDY: XR Chest 2 Views; 07/08/2018 4:17 pm INDICATION: Other (please specify). Medical clearance. COMPARISON: None. ACCESSION NUMBER(S): [id number] ORDERING CLINICIAN: Arlette Miranda FINDINGS: CARDIOMEDIASTINAL SILHOUETTE: Cardiomediastinal silhouette is normal in size and configuration. LUNGS: Lungs are clear.No pleural effusion or pneumothorax. ABDOMEN: Right upper quadrant surgical clips are present. BONES: No acute osseous changes. IMPRESSION: 1. No evidence of acute cardiopulmonary process. FINAL REPORT Dictated: 07/08/2018 4:27 pm Hugh Nix MD Signed (Electronic Signature): 07/08/2018 4:27 pm Signed by: Hugh Nix MD Technologist: , [facility] eGFRon 07-08-2018 GFR/1.73 sq M predicted among non-blacks MDRD (S/P/Bld) [Vol rate/Area] mL/min/{1.73_m2} [facility] Comment on above: Order Comment: Order added by Discern Expert. Performed By: #### 1 [id number] #### [employer] [place] [id number] Vital Signs Date Time Vital Sign Value Performing Clinician Luz bolanos 01-31-2025 10:52-0400 Body mass index (BMI) [Ratio] 39.05 kg/m2 Sam Osborne TRAFFIC CHIEF.INDUSTRIAL RADIOGRAPHER Work Phone: [facility] 01-31-2025 10:52-0400 Body weight 100 kg Sam Osborne TRAFFIC CHIEF.INDUSTRIAL RADIOGRAPHER Work Phone: [facility] 01-31-2025 10:52-0400 Diastolic blood pressure 74 mm[Hg] Sam Osborne TRAFFIC CHIEF.INDUSTRIAL RADIOGRAPHER Work Phone: [facility] 01-31-2025 10:52-0400 Heart rate 75 /min Sam Osborne TRAFFIC CHIEF.INDUSTRIAL RADIOGRAPHER Work Phone: [facility] 01-31-2025 10:52-0400 Systolic blood pressure 96 mm[Hg] Sam Osborne TRAFFIC CHIEF.INDUSTRIAL RADIOGRAPHER Work Phone: [facility] 01-27-2025 13:35-0400 Body mass index (BMI) [Ratio] 39.83 kg/m2 Nikita Daniels MD Work Phone: [facility] 01-27-2025 13:35-0400 Body temperature 98.29 [degF] Nikita Daniels MD Work Phone: [facility] 01-27-2025 13:35-0400 Body weight 102 kg Nikita Daniels MD Work Phone: [facility] 01-27-2025 13:35-0400 Diastolic blood pressure 75 mm[Hg] Nikita Daniels MD Work Phone: [facility] 01-27-2025 13:35-0400 Heart rate 76 /min Nikita Daniels MD Work Phone: [facility] 01-27-2025 13:35-0400 Respiratory rate 18 /min Nikita Daniels MD Work Phone: [facility] 01-27-2025 13:35-0400 SaO2% (BldA) [Mass fraction] 98 % Nikita Daniels MD Work Phone: [facility] 01-27-2025 13:35-0400 Systolic blood pressure 110 mm[Hg] Nikita Daniels MD Work Phone: [facility] 12-23-2024 08:02-0400 Body mass index (BMI) [Ratio] 38.97 kg/m2 Amudha Pazhanisamy DO Work Phone: [facility] 12-23-2024 08:02-0400 Body weight 99.79 kg Amudha Pazhanisamy DO Work Phone: [facility] 12-23-2024 08:02-0400 Diastolic blood pressure 74 mm[Hg] Amudha Pazhanisamy DO Work Phone: [facility] 12-23-2024 08:02-0400 Heart rate 79 /min Amudha Pazhanisamy DO Work Phone: [facility] 12-23-2024 08:02-0400 Respiratory rate 16 /min Amudha Pazhanisamy DO Work Phone: [facility] 12-23-2024 08:02-0400 SaO2% (BldA) [Mass fraction] 98 % Amudha Pazhanisamy DO Work Phone: [facility] 12-23-2024 08:02-0400 Systolic blood pressure 107 mm[Hg] Amudha Pazhanisamy DO Work Phone: [facility] 12-15-2024 06:48-0400 Body temperature 97.7 [degF] Marcelo Barraza FOOD MIXER REPAIRER-C Work Phone: [facility] 12-15-2024 06:48-0400 Diastolic blood pressure 74 mm[Hg] Marcelo Barraza FOOD MIXER REPAIRER-C Work Phone: [facility] 12-15-2024 06:48-0400 Heart rate 73 /min Marcelo Barraza FOOD MIXER REPAIRER-C Work Phone: 0(682)078-794307 [place] [address] 12-15-2024 06:48-0400 Respiratory rate 18 /min Marcelo Madi FOOD MIXER REPAIRER-C Work Phone: 0(114)014-841474 [place] [address] 12-15-2024 06:48-0400 SaO2% (BldA) [Mass fraction] 99 % Marcelo Madi FOOD MIXER REPAIRER-C Work Phone: 4(812)448-079474 [place] [address] 12-15-2024 06:48-0400 Systolic blood pressure 123 mm[Hg] Marcelo Madi FOOD MIXER REPAIRER-C Work Phone: 7(962)885-209474 [place] [address] 12-15-2024 06:23-0400 Body height 160.02 cm Marcelo Madi FOOD MIXER REPAIRER-C Work Phone: 4(174)898-301874 [place] [address] 12-15-2024 06:23-0400 Body mass index (BMI) [Ratio] 40.2 kg/m2 Marcelo Madi FOOD MIXER REPAIRER-C Work Phone: 8(452)352-973774 [place] [address] 12-15-2024 06:23-0400 Body weight 103.1 kg Marcelo Madi FOOD MIXER REPAIRER-C Work Phone: 9(356)454-716574 [place] [address] 12-06-2024 07:40-0400 Body temperature 98.1 [degF] Marcelo Madi FOOD MIXER REPAIRER-C Work Phone: 8(348)140-048874 [place] [address] 12-06-2024 07:40-0400 Diastolic blood pressure 62 mm[Hg] Marcelo Madi FOOD MIXER REPAIRER-C Work Phone: 0(293)387-580374 [place] [address] 12-06-2024 07:40-0400 Heart rate 77 /min Marcelo Madi FOOD MIXER REPAIRER-C Work Phone: 4(623)269-400174 [place] [address] 12-06-2024 07:40-0400 Respiratory rate 19 /min Marcelo Madi FOOD MIXER REPAIRER-C Work Phone: 4(664)126-717374 [place] [address] 12-06-2024 07:40-0400 SaO2% (BldA) [Mass fraction] 97 % Marcelo Madi FOOD MIXER REPAIRER-C Work Phone: 5(396)251-647774 [place] [address] 12-06-2024 07:40-0400 Systolic blood pressure 102 mm[Hg] Marcelo RIGGS Work Phone: [facility] 12-06-2024 05:47-0400 Body height 160.02 cm Marcelo Barraza NP-C Work Phone: [facility] 12-05-2024 14:00-0400 Body mass index (BMI) [Ratio] 39.05 kg/m2 Ann Praisler-Wood TRAFFIC CHIEF.INDUSTRIAL RADIOGRAPHER Work Phone: [facility] 12-05-2024 14:00-0400 Body temperature 97.59 [degF] Ann Praisler-Wood TRAFFIC CHIEF.INDUSTRIAL RADIOGRAPHER Work Phone: [facility] 12-05-2024 14:00-0400 Body weight 100 kg Ann Praisler-Wood TRAFFIC CHIEF.INDUSTRIAL RADIOGRAPHER Work Phone: [facility] 12-05-2024 14:00-0400 Diastolic blood pressure 80 mm[Hg] Ann Praisler-Wood TRAFFIC CHIEF.INDUSTRIAL RADIOGRAPHER Work Phone: [facility] 12-05-2024 14:00-0400 Heart rate 80 /min Ann Praisler-Wood TRAFFIC CHIEF.INDUSTRIAL RADIOGRAPHER Work Phone: [facility] 12-05-2024 14:00-0400 Respiratory rate 18 /min Ann Praisler-Wood TRAFFIC CHIEF.INDUSTRIAL RADIOGRAPHER Work Phone: [facility] 12-05-2024 14:00-0400 SaO2% (BldA) [Mass fraction] 98 % Ann Praisler-Wood TRAFFIC CHIEF.INDUSTRIAL RADIOGRAPHER Work Phone: [facility] 12-05-2024 14:00-0400 Systolic blood pressure 111 mm[Hg] Ann Praisler-Wood TRAFFIC CHIEF.INDUSTRIAL RADIOGRAPHER Work Phone: [facility] 11-25-2024 08:50-0400 Body mass index (BMI) [Ratio] 39.33 kg/m2 Francesca Gill MD Work Phone: [facility] 11-25-2024 08:50-0400 Body weight 100.7 kg Francesca Gill MD Work Phone: [facility] 11-25-2024 08:50-0400 Diastolic blood pressure 64 mm[Hg] Francesca Gill MD Work Phone: [facility] 11-25-2024 08:50-0400 Heart rate 76 /min Francesca Gill MD Work Phone: [facility] 11-25-2024 08:50-0400 Respiratory rate 16 /min Francesca Gill MD Work Phone: [facility] 11-25-2024 08:50-0400 Systolic blood pressure 100 mm[Hg] Francesca Gill MD Work Phone: [facility] 11-17-2024 13:38-0400 Body mass index (BMI) [Ratio] 39.29 kg/m2 Job Pereira APRN.INDUSTRIAL RADIOGRAPHER Work Phone: [facility] 11-17-2024 13:38-0400 Body temperature 97.59 [degF] Job Pereira APRN.INDUSTRIAL RADIOGRAPHER Work Phone: [facility] 11-17-2024 13:38-0400 Body weight 100.6 kg Job Pereira APRN.INDUSTRIAL RADIOGRAPHER Work Phone: [facility] 11-17-2024 13:38-0400 Diastolic blood pressure 72 mm[Hg] Job Pereira APRN.INDUSTRIAL RADIOGRAPHER Work Phone: [facility] 11-17-2024 13:38-0400 Heart rate 90 /min Job Pereira APRN.INDUSTRIAL RADIOGRAPHER Work Phone: [facility] 11-17-2024 13:38-0400 Respiratory rate 16 /min Job Pereira APRN.INDUSTRIAL RADIOGRAPHER Work Phone: [facility] 11-17-2024 13:38-0400 SaO2% (BldA) [Mass fraction] 99 % Job Pereira APRN.INDUSTRIAL RADIOGRAPHER Work Phone: [facility] 11-17-2024 13:38-0400 Systolic blood pressure 118 mm[Hg] Job Pereira APRN.INDUSTRIAL RADIOGRAPHER Work Phone: [facility] 10-08-2024 08:17-0400 Body mass index (BMI) [Ratio] 38.27 kg/m2 Sam Osborne TRAFFIC CHIEF.INDUSTRIAL RADIOGRAPHER Work Phone: [facility] 10-08-2024 08:17-0400 Body weight 98 kg Sam Osborne TRAFFIC CHIEF.INDUSTRIAL RADIOGRAPHER Work Phone: [facility] 10-08-2024 08:17-0400 Diastolic blood pressure 69 mm[Hg] Sam Osborne TRAFFIC CHIEF.INDUSTRIAL RADIOGRAPHER Work Phone: [facility] 10-08-2024 08:17-0400 Heart rate 80 /min Sam Osborne TRAFFIC CHIEF.INDUSTRIAL RADIOGRAPHER Work Phone: [facility] 10-08-2024 08:17-0400 Systolic blood pressure 104 mm[Hg] Sam Osborne TRAFFIC CHIEF.INDUSTRIAL RADIOGRAPHER Work Phone: [facility] 05-14-2024 08:09-0400 Body mass index (BMI) [Ratio] 38.62 kg/m2 Debo Nielson TRAFFIC CHIEF.INDUSTRIAL RADIOGRAPHER Work Phone: [facility] 05-14-2024 08:09-0400 Body weight 98.88 kg Debo Nielson TRAFFIC CHIEF.INDUSTRIAL RADIOGRAPHER Work Phone: [facility] 05-14-2024 08:09-0400 Diastolic blood pressure 60 mm[Hg] Debo Nielson TRAFFIC CHIEF.INDUSTRIAL RADIOGRAPHER Work Phone: [facility] 05-14-2024 08:09-0400 Systolic blood pressure 110 mm[Hg] Debo Nielson TRAFFIC CHIEF.INDUSTRIAL RADIOGRAPHER Work Phone: [facility] 02-18-2024 06:49-0400 Body mass index (BMI) [Ratio] 40.39 kg/m2 Angy Avila TRAFFIC CHIEF.INDUSTRIAL RADIOGRAPHER Work Phone: [facility] 02-18-2024 06:49-0400 Body weight 103.42 kg Angy Avila TRAFFIC CHIEF.INDUSTRIAL RADIOGRAPHER Work Phone: [facility] 02-18-2024 06:49-0400 Diastolic blood pressure 72 mm[Hg] Angy Tannhof TRAFFIC CHIEF.INDUSTRIAL RADIOGRAPHER Work Phone: [facility] 02-18-2024 06:49-0400 Heart rate 79 /min Angy Tannhof TRAFFIC CHIEF.INDUSTRIAL RADIOGRAPHER Work Phone: [facility] 02-18-2024 06:49-0400 Respiratory rate 16 /min Angy Masseyhof TRAFFIC CHIEF.INDUSTRIAL RADIOGRAPHER Work Phone: [facility] 02-18-2024 06:49-0400 SaO2% (BldA) [Mass fraction] 97 % Angy Tannhof TRAFFIC CHIEF.INDUSTRIAL RADIOGRAPHER Work Phone: [facility] 02-18-2024 06:49-0400 Systolic blood pressure 104 mm[Hg] Angy Tannhof TRAFFIC CHIEF.INDUSTRIAL RADIOGRAPHER Work Phone: [facility] 11-26-2023 13:39-0400 Body mass index (BMI) [Ratio] 40.07 kg/m2 Annika Athy PA-C Work Phone: [facility] 11-26-2023 13:39-0400 Body temperature 98.71 [degF] Annika Athy PA-C Work Phone: [facility] 11-26-2023 13:39-0400 Body weight 102.6 kg Annika Athy PA-C Work Phone: [facility] 11-26-2023 13:39-0400 Diastolic blood pressure 72 mm[Hg] Annika Athy PA-C Work Phone: [facility] 11-26-2023 13:39-0400 Heart rate 84 /min Annika Athy PA-C Work Phone: [facility] 11-26-2023 13:39-0400 Respiratory rate 18 /min Annika Athy PA-C Work Phone: [facility] 11-26-2023 13:39-0400 SaO2% (BldA) [Mass fraction] 98 % Annika Athy PA-C Work Phone: [facility] 11-26-2023 13:39-0400 Systolic blood pressure 122 mm[Hg] Annika Velazquez PA-C Work Phone: [facility] 11-25-2023 02:41-0400 Body temperature 98.4 [degF] [facility] 11-25-2023 02:41-0400 Diastolic blood pressure 71 mm[Hg] [facility] 11-25-2023 02:41-0400 Heart rate 77 /min [facility] 11-25-2023 02:41-0400 Respiratory rate 16 /min [facility] 11-25-2023 02:41-0400 SaO2% (BldA) [Mass fraction] 97 % [facility] 11-25-2023 02:41-0400 Systolic blood pressure 115 mm[Hg] [facility] 11-25-2023 00:28-0400 Body height 160.02 cm [facility] 11-25-2023 00:28-0400 Body mass index (BMI) [Ratio] 38.9 kg/m2 [facility] 11-25-2023 00:28-0400 Body weight 99.79 kg [facility] 07-04-2023 13:03-0500 Body temperature 98.49 [degF] Katia Brower TRAFFIC CHIEF.INDUSTRIAL RADIOGRAPHER Work Phone: [facility] 07-04-2023 13:03-0500 Body weight 102.97 kg Katia Brower TRAFFIC CHIEF.INDUSTRIAL RADIOGRAPHER Work Phone: [facility] 07-04-2023 13:03-0500 Diastolic blood pressure 89 mm[Hg] Katia Brower TRAFFIC CHIEF.INDUSTRIAL RADIOGRAPHER Work Phone: [facility] 07-04-2023 13:03-0500 Heart rate 74 /min Katia Brower TRAFFIC CHIEF.INDUSTRIAL RADIOGRAPHER Work Phone: [facility] 07-04-2023 13:03-0500 Respiratory rate 18 /min Katia Brower TRAFFIC CHIEF.INDUSTRIAL RADIOGRAPHER Work Phone: [facility] 07-04-2023 13:03-0500 SaO2% (BldA) [Mass fraction] 97 % Katia Brower TRAFFIC CHIEF.INDUSTRIAL RADIOGRAPHER Work Phone: [facility] 07-04-2023 13:03-0500 Systolic blood pressure 132 mm[Hg] Katia Brower TRAFFIC CHIEF.INDUSTRIAL RADIOGRAPHER Work Phone: [facility] 06-25-2023 13:47-0500 Body weight 102.33 kg Laura Plotts TRAFFIC CHIEF.CNM Work Phone: [facility] 06-25-2023 13:47-0500 Diastolic blood pressure 70 mm[Hg] Laura Plotts TRAFFIC CHIEF.CNM Work Phone: [facility] 06-25-2023 13:47-0500 Systolic blood pressure 110 mm[Hg] Laura Plotts TRAFFIC CHIEF.CNM Work Phone: [facility] 06-05-2023 11:16-0500 Body weight 101.61 kg Laura Plotts TRAFFIC CHIEF.CNM Work Phone: [facility] 06-05-2023 11:16-0500 Diastolic blood pressure 70 mm[Hg] Laura Plotts TRAFFIC CHIEF.CNM Work Phone: [facility] 06-05-2023 11:16-0500 Systolic blood pressure 110 mm[Hg] Laura Plotts TRAFFIC CHIEF.CNM Work Phone: [facility] 10-31-2022 13:47-0400 Body height 160 cm Fiordaliza Pereira MD Work Phone: [facility] 10-31-2022 13:47-0400 Body weight 96.75 kg Fiordaliza Pereira MD Work Phone: [facility] 10-31-2022 13:47-0400 Diastolic blood pressure 62 mm[Hg] Fiordaliza Pereira MD Work Phone: [facility] 10-31-2022 13:47-0400 Systolic blood pressure 94 mm[Hg] Fiordaliza Pereira MD Work Phone: [facility] 10-10-2022 14:30-0400 Body weight 97.52 kg Sam Osborne TRAFFIC CHIEF.INDUSTRIAL RADIOGRAPHER Work Phone: [facility] 10-10-2022 14:30-0400 Diastolic blood pressure 66 mm[Hg] Sam Osborne TRAFFIC CHIEF.INDUSTRIAL RADIOGRAPHER Work Phone: [facility] 10-10-2022 14:30-0400 Heart rate 90 /min Sam Osborne TRAFFIC CHIEF.INDUSTRIAL RADIOGRAPHER Work Phone: [facility] 10-10-2022 14:30-0400 Respiratory rate 14 /min Sam Osborne TRAFFIC CHIEF.INDUSTRIAL RADIOGRAPHER Work Phone: [facility] 10-10-2022 14:30-0400 Systolic blood pressure 114 mm[Hg] Sam Osborne TRAFFIC CHIEF.INDUSTRIAL RADIOGRAPHER Work Phone: [facility] 10-17-2021 15:28-0400 Body temperature 99.39 [degF] Ann Marie Bailey TRAFFIC CHIEF.INDUSTRIAL RADIOGRAPHER Work Phone: [facility] 10-17-2021 15:28-0400 Body weight 95.25 kg Ann Marie Bailey TRAFFIC CHIEF.INDUSTRIAL RADIOGRAPHER Work Phone: [facility] 10-17-2021 15:28-0400 Diastolic blood pressure 62 mm[Hg] Ann Marie Zuremilee TRAFFIC CHIEF.INDUSTRIAL RADIOGRAPHER Work Phone: [facility] 10-17-2021 15:28-0400 Heart rate 101 /min Ann Marie Bailey TRAFFIC CHIEF.INDUSTRIAL RADIOGRAPHER Work Phone: [facility] 10-17-2021 15:28-0400 SaO2% (BldA) [Mass fraction] 93 % Ann Marie Lynn TRAFFIC CHIEF.INDUSTRIAL RADIOGRAPHER Work Phone: [facility] 10-17-2021 15:28-0400 Systolic blood pressure 110 mm[Hg] Ann Marie Zurawick TRAFFIC CHIEF.INDUSTRIAL RADIOGRAPHER Work Phone: [facility] Encounters Encounter Date Encounter Type Care Provider Facility Start: 02-04-2025 End: 02-04-2025 Patient encounter procedure Irena Espinoza MS Work Phone: [facility] Comment on above: Family history of br east cancer (Primary Dx); Family history of adrenal cancer; Family history of pancreatic cancer Start: 02-01-2025 End: 02-03-2025 Orders Only Sam Osborne APRN.INDUSTRIAL RADIOGRAPHER Work Phone: [facility] [place] Comment on above: Diarrhea, unspecifie d type (Primary Dx) Testing Start: 01-31-2025 End: 02-01-2025 Follow-up encounter Sam Osborne APRN.CNP Work Phone: [facility] [place] Start: 01-31-2025 End: 01-31-2025 Subsequent hospital visit by physician X[facility] Work Phone: Radiology Comment on above: Diarrhea, unspecifie d type [R19.7] Start: 01-31-2025 End: 01-31-2025 Patient encounter procedure Sam Osborne APRN.INDUSTRIAL RADIOGRAPHER Work Phone: Family [facility] [place] Comment on above: Diarrhea, unspecifie d type (Primary Dx) Start: 01-31-2025 End: 01-31-2025 ambulatory SAM OSBORNE Facility:[facility] Start: 01-27-2025 End: 01-27-2025 Office outpatient visit 15 minutes Nikita Daniels MD Work Phone: [facility] [place] Comment on above: Sore throat (Primary Dx) Start: 01-27-2025 End: 01-27-2025 ambulatory FRANCESCA GILL Facility:[facility] Start: 12-23-2024 End: 12-23-2024 Office consultation new/estab patient 40 min Amudha Pazhanisamy DO Work Phone: Allergy Comment on above: Rhinoconjunctivitis (Primary Dx); Allergic rhinitis due to mold; Seasonal allergic rhinitis due to pollen; Adverse food reaction, sequela; Poor dentition Start: 12-23-2024 End: 12-24-2024 ambulatory Amudha Pazhanisamy DO Work Phone: Allergy Comment on above: Allergy shot Start: 12-16-2024 End: 12-17-2024 ambulatory Marcelo Barraza APRN.INDUSTRIAL RADIOGRAPHER Work Phone: [facility] [place] Comment on above: Er Start: 12-15-2024 End: 12-15-2024 Emergency department patient visit Marcelo Barraza FOOD MIXER REPAIRER-C Work Phone: -Emergency Department Work Phone: Start: 12-06-2024 End: 12-06-2024 Emergency department patient visit Marcelo Barraza FOOD MIXER REPAIRER-C Work Phone: -Emergency Department Work Phone: Start: 12-05-2024 End: 12-05-2024 Patient encounter procedure Ann Vega APRN.INDUSTRIAL RADIOGRAPHER Work Phone: [facility] Comment on above: Sore throat (Primary Dx); Viral URI with cough Start: 12-05-2024 End: 12-05-2024 ambulatory FRANCESCA Jaquez [facility] Facility:[facility] Start: 11-25-2024 End: 11-25-2024 Office outpatient visit 15 minutes Francesca Gill MD Work Phone: Family [facility] Comment on above: Environmental allerg ies (Primary Dx); Itchy eyes; Nasal congestion; Watery eyes; Encounter for screening examination for other mental health and behavioral disorders; Screening for depression Start: 11-25-2024 End: 11-25-2024 ambulatory [facility] Facility:[facility] Start: 11-17-2024 End: 11-17-2024 Patient encounter procedure Job Pereira APRN.INDUSTRIAL RADIOGRAPHER Work Phone: [facility] Comment on above: Sore throat (Primary Dx); Rhinosinusitis Start: 11-17-2024 End: 11-17-2024 ambulatory [facility] Facility:[facility] Start: 10-08-2024 End: 10-08-2024 Telephone encounter Francesca Gill MD Work Phone: [facility] [place] Comment on above: Insurance Authorizat ion Start: 10-08-2024 End: 10-08-2024 Patient encounter procedure Sam Osborne APRN.INDUSTRIAL RADIOGRAPHER Work Phone: [facility] [place] Comment on above: Iron deficiency anem ia, unspecified iron deficiency anemia type (Primary Dx); Intractable chronic migraine without aura and without status migrainosus Start: 10-08-2024 End: 10-08-2024 ambulatory [place] [facility] Facility:[facility] Start: 05-14-2024 End: 05-14-2024 ambulatory [facility] Facility:[facility] Start: 05-14-2024 End: 05-14-2024 Patient encounter procedure Debo Nielson APRN.INDUSTRIAL RADIOGRAPHER Work Phone: OB/Gynecology Comment on above: Vaginal discharge (P rimary Dx); Vaginal itching; Vaginal odor; Screening for cervical cancer Start: 02-23-2024 End: 02-23-2024 Emergency department patient visit Marcelo Barraza NP Facility:[facility] Start: 02-21-2024 ambulatory Francesca sidhu MD Work Phone: [facility] Comment on above: Rectal Problem Start: 02-20-2024 ambulatory Ann Marie Stone TRAFFIC CHIEF.INDUSTRIAL RADIOGRAPHER Work Phone: [facility] Comment on above: Blood in stool Start: 02-18-2024 End: 02-18-2024 Patient encounter procedure Angy Avila APRN.INDUSTRIAL RADIOGRAPHER Work Phone: [facility] Comment on above: Rectal bleeding (Eladia peri Dx); Chronic constipation; Contact dermatitis, unspecified contact dermatitis type, unspecified trigger Start: 02-18-2024 End: 02-18-2024 ambulatory [facility] Facility:[facility] Start: 02-17-2024 ambulatory Marcelo KONG RN.INDUSTRIAL RADIOGRAPHER Work Phone: [facility] Comment on above: Blood in stool Start: 02-17-2024 Telephone encounter Angy gibson TRAFFIC CHIEF.INDUSTRIAL RADIOGRAPHER Work Phone: [facility] Comment on above: Rectal Problem Start: 02-10-2024 End: 02-10-2024 ambulatory Marcelo Barraza FOOD MIXER REPAIRER Facility:[facility] Start: 11-26-2023 End: 11-26-2023 Patient encounter procedure Annika Velazquez PA-C Work Phone: [facility] Comment on above: Bronchitis (Primary Dx) Start: 11-25-2023 End: 11-25-2023 Emergency department patient visit [facility] Work Phone: Start: 07-05-2023 Telephone encounter Nikita Faith MD Work Phone: [facility] Comment on above: Results (HSV+) Start: 07-04-2023 End: 07-04-2023 Patient encounter procedure Katia Brower TRAFFIC CHIEF.INDUSTRIAL RADIOGRAPHER Work Phone: [facility] Comment on above: Blister of lip (Prim selam Dx) Start: 06-25-2023 End: 06-25-2023 Patient encounter procedure Lauracharlotte Rea TRAFFIC CHIEF.CNM Work Phone: OB/Gynecology Comment on above: Encounter for IUD in sertion (Primary Dx) Start: 06-05-2023 End: 06-05-2023 Patient encounter procedure Laura Álvaro TRAFFIC CHIEF.CNM Work Phone: OB/Gynecology Comment on above: Encounter for alfreda fabian regarding contraception (Primary Dx); Encounter for IUD insertion Start: 02-05-2023 ambulatory Francesca sidhu MD Work Phone: [facility] Comment on above: Pain Start: 11-01-2022 ambulatory Fiordaliza Jaquez Work Phone: OB/Gynecology Comment on above: Question regarding B ACT/NAMITA VAG GRAM STAIN Start: 10-31-2022 End: 10-31-2022 Patient encounter procedure Fiordaliza Pereira MD Work Phone: OB/Gynecology Comment on above: Encounter for gyneco logical examination without abnormal finding (Primary Dx); Vaginal odor; Vaginal itching Start: 10-31-2022 End: 10-31-2022 Patient encounter status Fiordaliza Pereira MD Work Phone: OB/Gynecology Start: 10-15-2022 Telephone encounter Sam rosas TRAFFIC CHIEF.INDUSTRIAL RADIOGRAPHER Work Phone: [facility] Comment on above: Results Start: 10-10-2022 End: 10-10-2022 Subsequent hospital visit by physician Xr [facility] Work Phone: Radiology Comment on above: Right wrist pain [M2 5.531] Start: 10-10-2022 End: 10-10-2022 Patient encounter procedure Sam Osborne APRN.INDUSTRIAL RADIOGRAPHER Work Phone: [facility] [place] Comment on above: Right wrist pain (Pr imary Dx) Start: 10-10-2022 ambulatory Francesca sidhu MD Work Phone: [facility] [place] Comment on above: Wrist Start: 10-01-2022 ambulatory Francesca sidhu MD Work Phone: [facility] [place] Comment on above: Lips Refill Request Start: 09-10-2022 End: 09-10-2022 ambulatory Francesca Gill MD Work Phone: [facility] [place] Comment on above: Recurrent cold sores (Primary Dx) Start: 09-10-2022 End: 09-10-2022 Telemedicine consultation with patient Francesca Gill MD Work Phone: [facility] Start: 09-09-2022 ambulatory Francesca sidhu MD Work Phone: [facility] [place] Comment on above: Lips Start: 02-07-2022 ambulatory Francesca sidhu MD Work Phone: [facility] Comment on above: Stomach Start: 10-17-2021 End: 10-17-2021 Patient encounter procedure Ann Mariebatsheva Bailey APRN.INDUSTRIAL RADIOGRAPHER Work Phone: [facility] [place] Comment on above: Cough (Primary Dx); Viral syndrome; Sore throat; Nose congestion Start: 03-09-2020 Patient requested procedure Al yson Zuremilee TRAFFIC CHIEF.INDUSTRIAL RADIOGRAPHER Work Phone: [facility] Work Phone: Start: 07-29-2018 End: 07-29-2018 Emergency department patient visit JASMINA DO [facility] Procedures Date Procedure Procedure Detail Performing Clinician Start: 01-31-2025 Radiologic exam abdomen 1 view Sam Osborne APRN.INDUSTRIAL RADIOGRAPHER Work Phone: Start: 01-27-2025 Iadna streptococcus group a amplified probe tq Nikita Daniels MD Work Phone: Start: 12-23-2024 ALLERGEN SKIN TEST-FOOD Mane Singh my DO Work Phone: Start: 12-23-2024 ALLERGEN SKIN TEST-INHALENT 40 Amclayton Hanna DO Work Phone: Start: 12-23-2024 ALLERGEN SKIN TEST-OTHER INHAL Amudcaty Hanna DO Work Phone: Start: 12-23-2024 Intracutaneous tests w/allergenic extracts Amclayton Hanna DO Work Phone: Start: 12-06-2024 SARS-CoV-2, Influenza & RSV (PCR) Marcelo Barraza FOOD MIXER REPAIRER-C Work Phone: Start: 12-06-2024 X-ray of chest, PA and lateral views Marcelo Barraza FOOD MIXER REPAIRER-C Work Phone: Start: 12-05-2024 STREP A MOLECULAR (POC) Ann rob TRAFFIC CHIEF.INDUSTRIAL RADIOGRAPHER Work Phone: Start: 11-25-2024 Adult depression screening assessment Francesca Gill MD Work Phone: Start: 11-17-2024 STREP A MOLECULAR (POC) Katia KONG RN.INDUSTRIAL RADIOGRAPHER Work Phone: Start: 11-25-2023 SARS-CoV-2, Influenza & RSV (PCR) Start: 11-25-2023 Plain chest X-ray Start: 06-25-2023 Urine test visual color cmprsn rd Rea TRAFFIC CHIEF.CNM Work Phone: Start: 10-31-2022 Iadna chlamydia trachomatis amplified probe tq Fiordaliza Pereira MD Work Phone: Start: 10-10-2022 Radex wrist complete minimum 3 views Sam Osborne TRAFFIC CHIEF.INDUSTRIAL RADIOGRAPHER Work Phone: Start: 10-17-2021 STREP A MOLECULAR (POC) Ann Marie Bailey TRAFFIC CHIEF.INDUSTRIAL RADIOGRAPHER Work Phone: Start: 10-17-2021 Adult depression screening assessment Ann Marie Bailey TRAFFIC CHIEF.INDUSTRIAL RADIOGRAPHER Work Phone: Start: 02-27-2016 End: 06-07-2016 Laboratory test result abnormal Abnormal laboratory test Annika Velazquez PA-C Work Phone: Plan of Treatment Date Care Activity Detail Author Start: 08-21-2030 Urine microalbumin profile [facility] Start: 05-14-2027 Screening for malign ant neoplasm of cervix Cervical Cancer Screening [facility] Start: 11-25-2025 Anxiety Screening Anxiety Screening [facility] Start: 11-25-2025 Covid-19 Vaccine () Covid-19 Vaccine () [facility] Comment on above: Postponed from 03/21 (Declined at this time) Start: 11-25-2025 Depression Screening Depression Scre ening [facility] Start: 03-21-2025 Influenza vaccination [facility] Start: 02-09-2025 End: 02-09-2025 Patient encounter procedure 02/09/2025 7:45 AM EDT Appointment Radiology [address] [place] [address] Diarrhea, unspecified type [R19.7] Radiology Comment on above: Diarrhea, unspecifie d type [R19.7] Start: 02-04-2025 End: 05-06-2025 NVTA INVITAE HEREDITARY DIAGNOSTIC CANCER PANEL [facility] Work Phone: Comment on above: Expected: 02/04/2025 , Expires: 05/06/2025 Start: 02-04-2025 End: 02-04-2025 Patient encounter procedure 02/04/2025 11:30 AM EDT Office Visit [facility] [address] [place] [address] Irena Espinoza, [place] [address] [place] [address] [facility] Comment on above: Genetics Start: 12-23-2024 End: 03-24-2025 ALGN RESP DISEASE PROF REG 5 [facility] Work Phone: Comment on above: Expected: 12/23/2024 , Expires: 03/24/2025 Start: 12-23-2024 End: 12-23-2024 Patient encounter procedure [facility] Comment on above: Dx: Environmental al lergies [Z91.09]; Itchy eyes [H57.9]; Nasal congestion [R09.81]; Watery eyes [H04.203] Start: 12-15-2024 [facility] Start: 12-06-2024 [facility] Start: 10-08-2024 End: 01-07-2025 CBC W Auto Differential panel - Blood [facility] Work Phone: Comment on above: Expected: 10/08/2024 , Expires: 01/07/2025 Start: 10-08-2024 End: 01-07-2025 Ferritin [Mass/volume] in Serum or Plasma [facility] Comment on above: Expected: 10/08/2024 , Expires: 01/07/2025 Start: 10-08-2024 End: 01-07-2025 Iron and Iron binding capacity panel - Serum or Plasma [facility] Comment on above: Expected: 10/08/2024 , Expires: 01/07/2025 Start: 03-21-2024 Covid-19 Vaccine ( season) Covid-19 Vaccine ( season) [facility] Start: 03-21-2024 Influenza vaccination [facility] Start: 02-18-2024 End: 02-18-2024 Patient encounter procedure 02/18/2024 7:00 AM EDT Office Visit [facility] [address] [place] [address] Angy Avila APRN.INDUSTRIAL RADIOGRAPHER [address] [place] [address] Blood noted in stool today [facility] Comment on above: Blood noted in stool today Start: 01-06-2024 PAP TESTING PAP TESTING [facility] Start: 01-06-2024 Screening for malign ant neoplasm of cervix [facility] Start: 11-25-2023 [facility] Start: 11-01-2023 CHLAMYDIA SCREENING (18-24) CHLAMYDIA SCREENING (18-24) [facility] Start: 11-01-2023 GC (GONORRHEA) SCREE KIMI (18-24) GC (GONORRHEA) SCREENING (18-24) [facility] Start: 11-01-2023 Screening for Chlamy alvarado trachomatis Chlamydia Screening (18-24) [facility] Start: 07-21-2023 Behavioral Health Screening Behavioral Health Screening [facility] Start: 07-04-2023 End: 10-03-2023 Herpes simplex virus+Varicella zoster virus DNA [Presence] in Unspecified specimen by ROMAN with probe detection [facility] Work Phone: Comment on above: Expected: 07/04/2023 , Expires: 10/03/2023 Start: 03-21-2023 Covid-19 Vaccine ( season) Covid-19 Vaccine ( season) [facility] Start: 03-21-2023 Influenza vaccination [facility] Start: 10-17-2022 Adult depression screening assessment DEPRESSION SCREENING [facility] Start: 07-21-2022 DEPRESSION ASSESSMENT DEPRESSION ASS ESSMENT [facility] Start: 03-21-2022 Influenza vaccination INFLUENZA (#1) [facility] Start: 08-23-2021 COVID-19 VACCINE (3 - Booster for Pfizer series) COVID-19 VACCINE (3 - Booster for Pfizer series) [facility] Start: 05-18-2021 COVID-19 VACCINE (3 - Booster for Pfizer series) COVID-19 VACCINE (3 - Booster for Pfizer series) [facility] Start: 05-12-2021 CHLAMYDIA SCREENING (18-24) CHLAMYDIA SCREENING (18-24) [facility] Start: 05-12-2021 GC (GONORRHEA) SCREE KIMI (18-24) GC (GONORRHEA) SCREENING (18-24) [facility] Start: 03-21-2021 Influenza vaccination INFLUENZA (#1) [facility] Start: 2017 Anxiety Screening Anxiety Screening [facility] Start: 2017 Depression Screening Depression Scre ening [facility] Start: 2015 Meningococcal B Vacc ine: Consider Based On Risk (1 of 2 - Patient Seeks Protection) Meningococcal B Vaccine: Consider Based On Risk (1 of 2 - Patient Seeks Protection) [facility] Start: 2015 MENINGOCOCCAL B: Consider based on risk (1 of 2 - Patient Seeks Protection) MENINGOCOCCAL B: Consider based on risk (1 of 2 - Patient Seeks Protection) [facility] Start: 2013 PEDS TO ADULT TRANSI TION ANNUAL ASSESSMENT PEDS TO ADULT TRANSITION ANNUAL ASSESSMENT [facility] Start: 2011 PEDS TO ADULT TRANSI TION INITIAL DISCUSSION PEDS TO ADULT TRANSITION INITIAL DISCUSSION [facility] Start: 2009 MENINGOCOCCAL B: Consider based on risk (1 of 2 - Risk Bexsero 2-dose series) MENINGOCOCCAL B: Consider based on risk (1 of 2 - Risk Bexsero 2-dose series) [facility] BACTERIAL VAGINOSIS NAAT BACTERI AL VAGINOSIS NAAT Lab Routine Vaginal discharge Vaginal itching 05/14/2024 8:23 AM EDT [facility] Work Phone: NAMITA/TRICHOMONAS NAAT NAMITA /TRICHOMONAS NAAT Lab Routine Vaginal discharge Vaginal itching 05/14/2024 8:23 AM EDT [facility] Clostridioides diffi cile toxin genes [Presence] in Stool by ROMAN with probe detection CLOSTRIDIUM DIFFICILE TOXIN BY PCR Lab Routine Diarrhea, unspecified type 01/31/2025 2:06 PM EDT [facility] ENTERIC BACTERIAL PA EDY BY PCR ENTERIC BACTERIAL PANEL BY PCR Lab Routine Diarrhea, unspecified type 01/31/2025 2:05 PM EDT [facility] Work Phone: EXTRA ECOFIX CONTAIN ER PERFORMABLE EXTRA ECOFIX CONTAINER PERFORMABLE Lab Routine Diarrhea, unspecified type 01/31/2025 2:06 PM EDT [facility] Influenza virus A an d B RNA and SARS-CoV-2 (COVID-19) N gene panel - Respiratory specimen by ROMAN with probe detection COVID WITH FLUA+B, ROUTINE Microbiology Routine Cough Sore throat Nose congestion Ordered: 10/17/2021 [facility] Work Phone: Comment on above: Ordered: 10/17/2021 Insertion intrauteri ne device iud INSERT INTRAUTERINE DEVICE Procedures Routine Encounter for IUD insertion Ordered: 06/05/2023 [facility] Work Phone: Comment on above: Ordered: 06/05/2023 Insertion intrauteri ne device iud INSERT INTRAUTERINE DEVICE Procedures Routine Encounter for IUD insertion Ordered: 06/25/2023 [facility] Work Phone: Comment on above: Ordered: 06/25/2023 LAB EXTRA TUBES LAB EXTRA TUBES Lab Routine Diarrhea, unspecified type 01/31/2025 2:06 PM EDT [facility] PAP TEST PAP TEST Lab Rou myra Screening for cervical cancer 05/14/2024 8:23 AM EDT [facility] Patient Education [facility] Work Phone: Patient referral [facility] Work Phone: T VAGINALIS AMPLIFICATION T VAGINALIS AMPLIFICATION Lab Routine Vaginal odor Vaginal itching 10/31/2022 2:10 PM EDT [facility] Work Phone: End: 03-03-2026 US Abdomen RUQ US ABD RIGHT UPPER QUADRANT Radiology STAT Diarrhea, unspecified type 1 Occurrences starting 02/01/2025 until 03/03/2026 [facility] Work Phone: Comment on above: 1 Occurrences starti ng 02/01/2025 until 03/03/2026 End: 11-09-2023 XR WRIST GENERAL 3V PA/LAT/OBL RIGHT XR WRIST GENERAL 3V PA/LAT/OBL RIGHT Radiology Routine Right wrist pain 1 Occurrences starting 10/10/2022 until 11/09/2023 [facility] Work Phone: Comment on above: 1 Occurrences starti ng 10/10/2022 until 11/09/2023 XR WRIST GENERAL 3V PA/LAT/OBL RIGHT XR WRIST GENERAL 3V PA/LAT/OBL RIGHT Radiology Routine Right wrist pain 10/10/2022 3:06 PM EDT [facility] Work Phone: [facility] Immunizations Immunization Date Immunization Notes Care Provider Elmer perez 08-21-2020 tetanus toxoid, redu gali diphtheria toxoid, and acellular pertussis vaccine, adsorbed Ann Marie Zurawick TRAFFIC CHIEF.INDUSTRIAL RADIOGRAPHER Work Phone: [facility] 05-12-2020 influenza, injectabl e, quadrivalent, contains preservative Ann Marie Zurawick TRAFFIC CHIEF.INDUSTRIAL RADIOGRAPHER Work Phone: [facility] Work Phone: 05-12-2020 influenza virus vaccine, unspecified formulation Laura Rea TRAFFIC CHIEF.CN Work Phone: [facility] 05-10-2020 Influenza virus vaccine [facility] 05-22-2017 tetanus toxoid, redu gali diphtheria toxoid, and acellular pertussis vaccine, adsorbed Ann Marie Zurawick TRAFFIC CHIEF.INDUSTRIAL RADIOGRAPHER Work Phone: [facility] 04-10-2017 Influenza virus vaccine [facility] 04-10-2017 influenza, injectabl e, quadrivalent, contains preservative Ann Marie Zurawick TRAFFIC CHIEF.INDUSTRIAL RADIOGRAPHER Work Phone: [facility] 04-10-2017 influenza, seasonal, injectable, preservative free Ann Marie Zurawick TRAFFIC CHIEF.INDUSTRIAL RADIOGRAPHER Work Phone: [facility] Work Phone: 06-25-2016 tetanus toxoid, redu gali diphtheria toxoid, and acellular pertussis vaccine, adsorbed Ann Marie Zurawick TRAFFIC CHIEF.[facility] Work Phone: [facility] Work Phone: 04-11-2016 influenza, injectabl e, quadrivalent, contains preservative Ann Marie Zurawick TRAFFIC CHIEF.INDUSTRIAL RADIOGRAPHER Work Phone: [facility] Work Phone: 02-21-2012 hepatitis A vaccine, unspecified formulation Ann Marie Zurawick TRAFFIC CHIEF.INDUSTRIAL RADIOGRAPHER Work Phone: [facility] Work Phone: 02-21-2012 human papilloma viru s vaccine, quadrivalent Ann Marie Zurawick TRAFFIC CHIEF.INDUSTRIAL RADIOGRAPHER Work Phone: [facility] Work Phone: 08-09-2010 human papilloma viru s vaccine, quadrivalent Ann Marie Zurawick TRAFFIC CHIEF.INDUSTRIAL RADIOGRAPHER Work Phone: [facility] 08-09-2010 Meningococcal, MCV4, unspecified conjugate formulation(groups A, C, Y and W-135) Ann Marie Zurawick TRAFFIC CHIEF.[facility] Work Phone: [facility] 08-09-2010 tetanus toxoid, redu gali diphtheria toxoid, and acellular pertussis vaccine, adsorbed Ann Marie Zurawick TRAFFIC CHIEF.INDUSTRIAL RADIOGRAPHER Work Phone: [facility] 03-01-2010 hepatitis A vaccine, unspecified formulation Ann Marie Zurawick TRAFFIC CHIEF.[facility] Work Phone: [facility] 03-01-2010 human papilloma viru s vaccine, quadrivalent Ann Marie Zurawick TRAFFIC CHIEF.[facility] Work Phone: [facility] 03-01-2010 varicella virus vaccine Yenni on Zurawick TRAFFIC CHIEF.[facility] Work Phone: [facility] 03-12-2005 diphtheria, tetanus toxoids and acellular pertussis vaccine Ann Marie Zurawick TRAFFIC CHIEF.[facility] Work Phone: [facility] Work Phone: 03-12-2005 measles, mumps and rubella virus vaccine Ann Marie Zurawick TRAFFIC CHIEF.[facility] Work Phone: [facility] Work Phone: 03-12-2005 poliovirus vaccine, inactivated Ann Marie Zurawick TRAFFIC CHIEF.[facility] Work Phone: [facility] Work Phone: 09-22-2001 pneumococcal conjuga te vaccine, 7 valent Ann Marie Zurawick TRAFFIC CHIEF.[facility] Work Phone: [facility] Work Phone: 05-11-2001 diphtheria, tetanus toxoids and acellular pertussis vaccine Ann Marie Zurawick TRAFFIC CHIEF.[facility] Work Phone: [facility] Work Phone: 05-11-2001 haemophilus influenz ae type b vaccine, HbOC conjugate Ann Marie Zurawick TRAFFIC CHIEF.[facility] Work Phone: [facility] Work Phone: 05-11-2001 hepatitis B vaccine, pediatric or pediatric/adolescent dosage Ann Marie Zurawick TRAFFIC CHIEF.[facility] Work Phone: [facility] Work Phone: 2000 hepatitis B vaccine, pediatric or pediatric/adolescent dosage Ann Marie Zurawick TRAFFIC CHIEF.[facility] Work Phone: [facility] Work Phone: 2000 measles, mumps and rubella virus vaccine Ann Marie Zurawick TRAFFIC CHIEF.[facility] Work Phone: [facility] Work Phone: 2000 pneumococcal conjuga te vaccine, 7 valent Ann Marie Zurawick TRAFFIC CHIEF.[facility] Work Phone: [facility] Work Phone: 2000 varicella virus vaccine Yenni on Zurawick TRAFFIC CHIEF.[facility] Work Phone: [facility] Work Phone: 03-19-2000 diphtheria, tetanus toxoids and acellular pertussis vaccine Ann Marie Zurawick TRAFFIC CHIEF.[facility] Work Phone: [facility] Work Phone: 03-19-2000 haemophilus influenz ae type b vaccine, HbOC conjugate Ann Marie Zurawick TRAFFIC CHIEF.[facility] Work Phone: [facility] Work Phone: 03-19-2000 pneumococcal conjuga te vaccine, 7 valent Ann Marie Zurawick TRAFFIC CHIEF.[facility] Work Phone: [facility] Work Phone: 03-19-2000 poliovirus vaccine, inactivated Ann Marie Zurawick TRAFFIC CHIEF.[facility] Work Phone: [facility] Work Phone: 1999 diphtheria, tetanus toxoids and acellular pertussis vaccine Ann Marie Zurawick TRAFFIC CHIEF.[facility] Work Phone: [facility] Work Phone: 1999 haemophilus influenz ae type b vaccine, HbOC conjugate Ann Marie Zurawick TRAFFIC CHIEF.[facility] Work Phone: [facility] Work Phone: 1999 hepatitis B vaccine, pediatric or pediatric/adolescent dosage Ann Marie Zurawick TRAFFIC CHIEF.INDUSTRIAL RADIOGRAPHER Work Phone: [facility] Work Phone: 1999 poliovirus vaccine, inactivated Ann Marie Zurawick TRAFFIC CHIEF.[facility] Work Phone: [facility] Work Phone: 1999 diphtheria, tetanus toxoids and acellular pertussis vaccine Ann Marie Zurawick TRAFFIC CHIEF.[facility] Work Phone: [facility] Work Phone: 1999 haemophilus influenz ae type b vaccine, HbOC conjugate Ann Marie Zurawick TRAFFIC CHIEF.[facility] Work Phone: [facility] Work Phone: 1999 poliovirus vaccine, inactivated Ann Marie Zurawick TRAFFIC CHIEF.[facility] Work Phone: [facility] Work Phone: Payers Date Payer Category Payer Self-pay [id number] 2022 Medicaid [id number] 2022 Unknown [id number] 2019 Medicaid [place] [employer] [id number] 2019-Present [phone] [place] [address] [id number] Medicaid [id number] 2014 Unknown [facility] [id number] 1999 Unknown [id number] Unknown [id number] Unknown [id number] Unknown [id number] Unknown [id number] Unknown [id number] Unknown [id number] Social History Date Type Detail Facility Start: 02-08-2016 End: 10-31-2022 Tobacco smoking status NHIS Never smoked tobacco [facility] Work Phone: Start: 02-08-2016 End: 10-31-2022 Tobacco use and exposure Smokeless tobacco non-user [facility] Work Phone: Start: 10-17-2021 End: 01-27-2025 Alcohol intake Current non-drinker of alcohol (finding) [facility] Start: 09-09-2019 End: 09-10-2022 History SDOH Social Connections Phone 5 [facility] Start: 09-09-2019 History SDOH Social Connections Get Together 4 [facility] Start: 09-09-2019 End: 09-10-2022 History SDOH Social Connections Judaism 1 [facility] Start: 09-09-2019 End: 09-10-2022 History SDOH Social Connections Membership 2 [facility] Start: 09-09-2019 History SDOH Physica l Activity MPS 6 [facility] Start: 03-09-2020 Education 11 [facility] Start: 1999 Sex Assigned At Not on file [facility] Start: 10-07-2021 End: 10-17-2021 Exposure to SARS-CoV-2 (event) Not sure [facility] Start: 09-10-2022 History SDOH Social Connections Living 7 [facility] Start: 09-10-2022 History SDOH Physica l Activity DPW 3 [facility] Start: 10-31-2022 Tobacco Comment parents smoke [facility] Start: 09-10-2022 End: 02-07-2023 History of Social function [facility] Start: 09-10-2022 End: 02-07-2023 Social connection and isolation panel [facility] Do you belong to any clubs or organizations such as congregational groups, unions, fraternal or athletic groups, or school groups? No [facility] Are you now , , , , never or living with a partner? Never [facility] How often to you hav e a drink containing alcohol? Monthly or less [facility] How many standard dr inks containing alcohol do you have on a typical day? 1 or 2 [facility] How often do you hav e 6 or more drinks on 1 occasion? Never [facility] How hard is it for y ou to pay for the very basics like food, housing, medical care, and heating Not hard at all [facility] Do you feel stress - tense, restless, nervous, or anxious, or unable to sleep at night because your mind is troubled all the time - these days [OSQ] Only a little [facility] (I/We) worried melissa fletcher (my/our) food would run out before (I/we) got money to buy more. Never true [facility] Start: 11-25-2023 [facility] Start: 08-13-2017 None [facility] Start: 1999 Sex Assigned At Female W [facility] Start: 12-15-2024 [facility] Functional Status Date Assessment Result Facility 05-17-2016 Are you deaf, or do you have serious difficulty hearing No 05/17/2016 12:05 PM Zoë Simmons RN No [facility] 05-17-2016 Are you blind, or do you have serious difficulty seeing, even when wearing glasses No 05/17/2016 12:05 PM Zoë Simmons, IVAN No [facility] 05-17-2016 Do you have serious difficulty walking or climbing stairs No 05/17/2016 12:05 PM Zoë Simmons, IVAN No [facility] 05-17-2016 Do you have difficul ty dressing or bathing No 05/17/2016 12:05 PM EDZoë Lux RN No [facility] 05-17-2016 Because of a physica l, mental, or emotional condition, do you have difficulty doing errands alone such as visiting a physician's office or shopping No 05/17/2016 12:05 PM Zoë Simmons RN No [facility] Mental Status Date Assessment Result Facility 12-15-2024 Cognitive function Level Of Cons ciousness Awake;Alert;Appropriate;Fol lows Commands [facility] Work Phone: 12-06-2024 Cognitive function Level Of Cons ciousness Awake;Alert;Appropriate;Fol lows Commands [facility] Work Phone: 11-25-2023 Cognitive function Level Of Cons ciousness Awake;Alert;Appropriate [facility] Work Phone: 05-17-2016 Because of a physica l, mental, or emotional condition, do you have serious difficulty concentrating, remembering, or making decisions No 05/17/2016 12:05 PM EDZoë Lux RN No [facility] Clinical Notes 10-24-2020 to 02-04-2025 Irena Espinoza MS - 02/04/2025 11:30 AM EDTTelephone Encounter - Sarah Meeks MA - 02/01/2025 3:52 PM EDTTelephone Encounter - Sarah Meeks MA - 02/01/2025 3:52 PM EDTPatient Instructions Note Date & Type Note Facility 02-04-2025 History of Present illness Narrative Images from the original note were not included. [facility] Department of Medical Genetics Consultation Note Genetic Counselor: Irena Espinoza MS, [facility] Patient: Marianne Saucedo Patient Name and confirmed at initiation of visit. HIGH LEVEL SUMMARY: The patient's family history is potentially suggestive of a hereditary cancer syndrome. The patient provided informed consent for Multi-Cancer panel through [facility]. Results are expected in 2-3 weeks from the time of sample collection. Patient plans to have blood drawn on site today. IDENTIFICATION AND CHIEF COMPLAINT: Sam Osborne APRN.Ralf* requested a consultation for genetic counseling and risk assessment for Marianne Saucedo, a 24 year old female, for discussion of her family history of cancer. She presents to clinic today to discuss the possibility of a genetic predisposition to cancer, and to further clarify her risks, as well as her family members' risks for cancer. HISTORY OF PRESENT ILLNESS: Marianne Saucedo is a 24 year old female with no personal history of cancer. PAST MEDICAL HISTORY Diagnosis Date Anemia Bronchiolitis as infant resolved Cholestasis of in second trimester (HCC) 05/10/2016 Constipation 11/08/2011 depression counseling only NEGATIVE MEDICAL HISTORY normal color vision Pancreatitis (HCC) with gallbladder issues depression Strep throat recurrent, tonsillectomy age 3 years PAST SURGICAL HISTORY Procedure Laterality Date LAPAROSCOPY SURG CHOLECYSTECTOMY 07/21/2014 Cholecystectomy, lap MIRENA IUD 06/25/2023 Placed in office TONSILLECTOMY HX age 3 years CANCER SURVEILLANCE HISTORY: Mammograms: N/A Breast MRI's: N/A Breast Biopsies: N/A Colonoscopy: N/A EGD: N/A GI Polyps: N/A Dermatology: No REPRODUCTIVE HISTORY AND PERSONAL RISK ASSESSMENT FACTORS: Weight: Last 1 Encounter Wt Readings: Date: Wt: 01/31/2025 100 kg (220 lb 7.4 oz) Height: Last 1 Encounter Ht Readings: Date: Ht: 10/31/2022 160 cm (5' 3) Menarche was at age 10 Premenopausal Uterus Intact: Yes Ovaries Intact: Yes First live at age 14 She has not used HRT in the past. SOCIAL HISTORY: Social History Tobacco Use Smoking status: Never Smokeless tobacco: Never Tobacco comments: parents smoke Vaping Use Vaping status: Never Used Substance Use Topics Alcohol use: No Drug use: No FAMILY HISTORY: We obtained a detailed, 4-generation family history. Significant diagnoses are listed below: FAMILY HISTORY Problem Relation Age of Onset Asthma Mother No Known Problems Father other (heart murmur) Sister other (heart murmur) Brother No Known Problems Brother Cancer Maternal Grandmother Adrenal Hypertension Maternal Grandmother No Known Problems Maternal Grandfather No Known Problems Paternal Grandmother No Known Problems Paternal Grandfather No Known Problems Son No Known Problems Son The patient's maternal ancestors are of [place] descent and paternal ancestors are of mixed descent. There is no known Ashkenazi Roman Catholic ancestry. There is no known consanguinity. A copy of the patient's pedigree will be available under the scanned documents tab following today's visit. GENETIC COUNSELING RISK ASSESSMENT, DISCUSSION, AND SUGGESTED FOLLOW UP: We reviewed the natural history and genetic etiology of sporadic, familial and hereditary cancer syndromes. The patient's family history is potentially suggestive of: a hereditary cancer syndrome We discussed that the best person to begin with genetic testing is a family member with a history of cancer. The patient's maternal great aunt who was diagnosed with breast cancer in her 40s would be the most appropriate relative for genetic testing. However, this relative is unavailable for testing. Therefore, we discussed the limitations of interpreting tests results for an unaffected individual. The patient meets NCCN testing criteria since her maternal great aunt had a personal history of breast cancer diagnosed <= 50 years of age and a sister who also had a breast cancer under 50. We discussed that identification of a hereditary cancer syndrome may help her care providers tailor her medical management. If a mutation is detected, the National Comprehensive Cancer Network and/or expert opinion recommendations could include increased cancer surveillance and prophylactic surgery options. If a mutation is detected, the patient will be referred back to the referring provider and to any additional appropriate care providers to discuss the relevant options. Inheritance of hereditary cancer syndromes was discussed with the patient. If a mutation is not found in the patient, this will decrease the likelihood of a hereditary cancer syndrome as the explanation for the patient's family history of cancer. However, it cannot completely rule out this possibility. Cancer surveillance options would be discussed for the patient according to the appropriate standard National Comprehensive Cancer Network and [place] [employer] guidelines, with consideration of their personal and family history risk factors. In this case, the patient will be referred back to their care providers for discussions of management. Based on this assessment of the patient's family and personal history, genetic testing is recommended. The patient was offered Multi-Cancer panel through [facility]. After considering the risks, benefits, and limitations, the patient chose to pursue and provided informed consent for the following testing: Multi-Cancer panel through [facility]. The Multi-Cancer Panel includes the following 70 genes: AIP, ALK, APC, JAMES, AXIN2, BAP1, BARD1, BLM, BMPR1A, BRCA1, BRCA2, BRIP1, CDC73, CDH1, CDK4, CDKN1B, CDKN2A, CHEK2, CTNNA1, DICER1, EGFR, EPCAM, FH, FLCN, GREM1, HOXB13, KIT, LZTR1, MAX, MBD4, MEN1, MET, MITF, MLH1, MSH2, MSH3, MSH6, MUTYH, NF1, NF2, NTHL1, PALB2, PDGFRA, PMS2, POLD1, POLE, POT1, UOLCS1N, PTCH1, PTEN, RAD51C, RAD51D, RB1, RET, SDHA, SDHAF2, SDHB, SDHC, SDHD, SMAD4, SMARCA4, SMARCB1, SMARCE1, STK11, SUFU, IQLY024, TP53, TSC1, TSC2, VHL The Multi-Cancer panel looks at genes associated with cancers of the breast, gynecologic tract (ovarian, uterine/endometrial), gastrointestinal system (colorectal, gastric, pancreatic), endocrine glands (thyroid, parathyroid, pituitary, adrenal glands), genitourinary tract (renal/urinary tract, prostate), skin (melanoma, basal cell carcinoma), and brain/nervous system. We discussed that an NGS panel can rarely result in an unexpected finding which may or may not be related to the presenting phenotype. We discussed that [employer] may contact the patient regarding billing. The patient should watch for this communication and respond promptly. The patient should contact [employer] directly with any billing questions (ph. [phone] or [email or web address]). Per the patient's request, we will contact her by [employer] or telephone to review these results. A follow up genetic counseling visit will be scheduled if requested. I spent a total of 30 minutes on the date of the service, which included preparing to see the patient, [id number] patient care, completing clinical documentation, obtaining and/or reviewing separately obtained history, counseling and educating the patient/family/caregiver, ordering tests, communicating with other HCPs (not separately reported), independently interpreting results (not separately reported), communicating results to the patient/family/caregiver, and care coordination (not separately reported). This plan is being carried out under the oversight of Dr. Jeseina Dozier MD, PhD. This note will also be sent to the referring provider via the electronic medical record. Irena Espinoza MS, [facility] CC: Sma Osborne APRN.C* Jesenia Dozier MD, PhD documented in this encounter [facility] 02-01-2025 Telephone encounter Note See pt message and advise. Sarah Meeks MA [facility] 02-01-2025 Miscellaneous Notes See pt message and advise. Sarah Meeks MA documented in this encounter [facility] 02-01-2025 Telephone encounter Note Pt active on mychart- message sent Brooklyn Gonsalez MA [facility] 02-01-2025 Miscellaneous Notes Pt active on mychart- message sent Brooklyn Gonsalez MA Please let patient know I have placed an order for a RUQ US as her amylase is lower than it has been in the past. Pt active on mychart- message sent. Will leave encounter open until message is read Brooklyn Gonsalez MA Please let patient know their xray is normal. documented in this encounter [facility] 02-01-2025 Telephone encounter Note Please let patient know I have placed an order for a RUQ US as her amylase is lower than it has been in the past. [facility] 01-31-2025 Note Addended by: DARIN WALKER on: 01/31/2025 08:44 PM Modules accepted: Orders [facility] 01-31-2025 Miscellaneous Notes Addended by: DARIN WALKER on: 01/31/2025 08:44 PM Modules accepted: Orders documented in this encounter [facility] 01-31-2025 Telephone encounter Note Pt active on [employer]- message sent. Will leave encounter open until message is read Brooklyn Gonsalez MA [facility] 01-31-2025 Telephone encounter Note Please let patient know their xray is normal. [facility] 01-31-2025 History of Present illness Narrative Radiology Service Progress Note PATIENT NAME: Marianne Saucedo DATE OF SERVICE: January 31, 2025 TIME: 11:48 AM PATIENT IDENTITY VERIFICATION COMPLETED USING TWO (2) IDENTIFIERS: Name and Date of confirmed by patient verbally. FALL SCREENING: Has the patient had 2 falls in the last year or 1 fall with injury or currently using an Ambulatory Assistive Device (Walker, Cane, Wheelchair, Crutches, etc.)? No PATIENT GENDER DATA: Assigned female at . status: : No status: NO. PATIENT RELEVANT IMPLANT DATA REVIEWED: Not Applicable PATIENT PRESENTS WITH AN IMPLANTABLE OR ATTACHED CIVIL ENGINEERING DESIGN DRAFTSPERSON: No RADIOLOGY DEPARTMENT: General X-ray: Exam(s) Completed: Abdomen X-Ray: Abdomen PERIPHERAL IV DATA: Not applicable SIGNED BY: RT Isamar(Melissa) January 31, 2025 11:48 AM documented in this encounter [facility] 01-31-2025 Note HNO ID: [id number] Author: GHAZAL BACK RT(R) Service: ? Author Type: Technologist Type: Progress Notes Filed: 01/31/2025 11:55 Note Text: Radiology Service Progress Note PATIENT NAME: Marianne Saucedo DATE OF SERVICE: January 31, 2025 TIME: 11:48 AM PATIENT IDENTITY VERIFICATION COMPLETED USING TWO (2) IDENTIFIERS: Name and Date of confirmed by patient verbally. FALL SCREENING: Has the patient had 2 falls in the last year or 1 fall with injury or currently using an Ambulatory Assistive Device (Walker, Cane, Wheelchair, Crutches, etc.)? No PATIENT GENDER DATA: Assigned female at . status: : No status: NO. PATIENT RELEVANT IMPLANT DATA REVIEWED: Not Applicable PATIENT PRESENTS WITH AN IMPLANTABLE OR ATTACHED CIVIL ENGINEERING DESIGN DRAFTSPERSON: No RADIOLOGY DEPARTMENT: General X-ray: Exam(s) Completed: Abdomen X-Ray: Abdomen PERIPHERAL IV DATA: Not applicable SIGNED BY: RT Isamar(R) January 31, 2025 11:48 AM [facility] 01-31-2025 Note HNO ID: [id number] Author: SAM OSBORNE APRN.[facility] Service: ? Author Type: Nurse Practitioner Type: Progress Notes Filed: 01/31/2025 11:04 Note Text: Chief Complaint Patient presents with: Diarrhea: X 2 months Headache: X 1 day HPI Marianne Saucedo is a 24 year old female who presents here today for Above Complaints. Patient presents for diarrhea x2 months. Denies abd pain, n/v, fever, chills. 5-6 BM per day, color is variable. 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 No antibiotic use prior to start of diarrhea. Past medical history, appointments, medications, allergies reviewed. Previous Medical History PAST MEDICAL HISTORY Diagnosis Date Anemia Bronchiolitis as resolved Cholestasis of in second trimester (HCC) 05/10/2016 Constipation 11/08/2011 depression counseling only NEGATIVE MEDICAL HISTORY normal color vision Pancreatitis (HCC) with gallbladder issues depression Strep throat recurrent, tonsillectomy age 3 years Previous Surgical History PAST SURGICAL HISTORY Procedure Laterality Date LAPAROSCOPY SURG CHOLECYSTECTOMY 07/21/2014 Cholecystectomy, lap MIRENA IUD 06/25/2023 Placed in office TONSILLECTOMY HX age 3 years Family History FAMILY HISTORY Problem Relation Age of Onset Asthma Mother No Known Problems Father other (heart murmur) Sister other (heart murmur) Brother No Known Problems Brother Cancer Maternal Grandmother Adrenal Hypertension Maternal Grandmother No Known Problems Maternal Grandfather No Known Problems Paternal Grandmother No Known Problems Paternal Grandfather No Known Problems Son No Known Problems Son Patient Allergies ALLERGIES No Known Allergies Current Medications Current Outpatient Medications on File Prior to Visit Medication Sig fluticasone (FLONASE) 50 mcg/actuation nasal spray Use 1-2 sprays in each nostril once daily. SUMAtriptan (IMITREX) 50 mg tablet Take 1 tablet by mouth as needed for migraine headache (see administration instructions). May repeat dose after 2 hours if needed. Maximum daily dose is 200 mg per day. levonorgestrel (MIRENA) 21 mcg/24 hours (8 yrs) 52 mg IUD 1 Each by INTRAUTERINE route as directed. albuterol HFA (PROVENTIL HFA, VENTOLIN HFA) 90 mcg/actuation inhaler Inhale 2 Puffs as instructed every 4 hours as needed for wheezing/shortness of breath. No current facility-administered medications on file prior to visit. Social History Social History Tobacco Use Smoking status: Never Smokeless tobacco: Never Tobacco comments: parents smoke Vaping Use Vaping status: Never Used Substance Use Topics Alcohol use: No Drug use: No Review of Symptoms REVIEW OF SYSTEMS SEE HPI EXAM: BP 96/74 Pulse 75 Wt 100 kg (220 lb 7.4 oz) LMP 05/06/2023 (Exact Date) BMI 39.05 kg/m? General Appearance: Well appearing, alert, in no acute distress, well-hydrated, well nourished. Abdomen: Negative findings: symmetric, no masses palpable, no organomegaly, and soft, non-tender, Positive findings: hypoactive bowel sounds. Health Maintenance List Covid-19 Vaccine( season) due on 11/25/2025 Influenza Vaccine(1) due on 03/21/2025 Depression Screening due on 11/25/2025 Anxiety Screening due on 11/25/2025 Cervical Cancer Screening due on 05/14/2027 DTaP,Tdap,Td Vaccine(10 - Td or Tdap) due on 08/21/2030 Hepatitis B Vaccine Completed HPV Vaccine Completed Hepatitis C Screening Completed HIV Screening Completed ASSESSMENT/PLAN: 1. Diarrhea, unspecified type - ICD9: 787.91, ICD10: R19.7 - ENTERIC BACTERIAL PANEL BY PCR - CLOSTRIDIUM DIFFICILE TOXIN BY PCR - COMPLETE BLOOD COUNT AND DIFFERENTIAL - COMPREHENSIVE METABOLIC PANEL - LIPASE - AMYLASE - XR ABDOMEN 1V SUPINE Sam Osborne APRN.[facility] 01-31-2025 History of Present illness Narrative Chief Complaint Patient presents with: Diarrhea: X 2 months Headache: X 1 day HPI Marianne Saucedo is a 24 year old female who presents here today for Above Complaints. Patient presents for diarrhea x2 months. Denies abd pain, n/v, fever, chills. 5-6 BM per day, color is variable. 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 No antibiotic use prior to start of diarrhea. Past medical history, appointments, medications, allergies reviewed. Previous Medical History PAST MEDICAL HISTORY Diagnosis Date Anemia Bronchiolitis as resolved Cholestasis of in second trimester (HCC) 05/10/2016 Constipation 11/08/2011 depression counseling only NEGATIVE MEDICAL HISTORY normal color vision Pancreatitis (HCC) with gallbladder issues depression Strep throat recurrent, tonsillectomy age 3 years Previous Surgical History PAST SURGICAL HISTORY Procedure Laterality Date LAPAROSCOPY SURG CHOLECYSTECTOMY 07/21/2014 Cholecystectomy, lap MIRENA IUD 06/25/2023 Placed in office TONSILLECTOMY HX age 3 years Family History FAMILY HISTORY Problem Relation Age of Onset Asthma Mother No Known Problems Father other (heart murmur) Sister other (heart murmur) Brother No Known Problems Brother Cancer Maternal Grandmother Adrenal Hypertension Maternal Grandmother No Known Problems Maternal Grandfather No Known Problems Paternal Grandmother No Known Problems Paternal Grandfather No Known Problems Son No Known Problems Son Patient Allergies ALLERGIES No Known Allergies Current Medications Current Outpatient Medications on File Prior to Visit Medication Sig fluticasone (FLONASE) 50 mcg/actuation nasal spray Use 1-2 sprays in each nostril once daily. SUMAtriptan (IMITREX) 50 mg tablet Take 1 tablet by mouth as needed for migraine headache (see administration instructions). May repeat dose after 2 hours if needed. Maximum daily dose is 200 mg per day. levonorgestrel (MIRENA) 21 mcg/24 hours (8 yrs) 52 mg IUD 1 Each by INTRAUTERINE route as directed. albuterol HFA (PROVENTIL HFA, VENTOLIN HFA) 90 mcg/actuation inhaler Inhale 2 Puffs as instructed every 4 hours as needed for wheezing/shortness of breath. No current facility-administered medications on file prior to visit. Social History Social History Tobacco Use Smoking status: Never Smokeless tobacco: Never Tobacco comments: parents smoke Vaping Use Vaping status: Never Used Substance Use Topics Alcohol use: No Drug use: No Review of Symptoms REVIEW OF SYSTEMS SEE HPI EXAM: BP 96/74 Pulse 75 Wt 100 kg (220 lb 7.4 oz) LMP 05/06/2023 (Exact Date) BMI 39.05 kg/m General Appearance: Well appearing, alert, in no acute distress, well-hydrated, well nourished. Abdomen: Negative findings: symmetric, no masses palpable, no organomegaly, and soft, non-tender, Positive findings: hypoactive bowel sounds. Health Maintenance List Covid-19 Vaccine( season) due on 11/25/2025 Influenza Vaccine(1) due on 03/21/2025 Depression Screening due on 11/25/2025 Anxiety Screening due on 11/25/2025 Cervical Cancer Screening due on 05/14/2027 DTaP,Tdap,Td Vaccine(10 - Td or Tdap) due on 08/21/2030 Hepatitis B Vaccine Completed HPV Vaccine Completed Hepatitis C Screening Completed HIV Screening Completed ASSESSMENT/PLAN: 1. Diarrhea, unspecified type - ICD9: 787.91, ICD10: R19.7 - ENTERIC BACTERIAL PANEL BY PCR - CLOSTRIDIUM DIFFICILE TOXIN BY PCR - COMPLETE BLOOD COUNT AND DIFFERENTIAL - COMPREHENSIVE METABOLIC PANEL - LIPASE - AMYLASE - XR ABDOMEN 1V SUPINE Sam Osborne APRN.[employer] documented in this encounter [facility] 01-27-2025 Note HNO ID: [id number] Author: NIKITA DANIELS MD Service: ? Author Type: Physician Type: Progress Notes Filed: 01/27/2025 13:52 Note Text: URGENT CARE CARI Saucedo is a 24 year old female. Patient presents with: Nasal Congestion: Post nasal drainage causing cough x this am Patient presents with illness symptoms since this morning. She has cough, postnasal drainage, nasal congestion, and sore throat. She has daily headaches and notices no significant change in symptoms. She gets sores on her lips when she gets sick and noted a sore developing on her lower lip. Denies fever, chills, shortness of breath, body aches, nausea, vomiting, diarrhea. She has taken acetaminophen. Nasal Congestion Associated symptoms include congestion. Review of Systems HENT: Positive for congestion. Objective BP 110/75 Pulse 76 Temp 36.8 ?C (98.3 ?F) Resp 18 Wt 102 kg (224 lb 13.9 oz) LMP 05/06/2023 (Exact Date) SpO2 98% BMI 39.83 kg/m? Physical Exam Constitutional: General: She is not in acute distress. HENT: Right Ear: Tympanic membrane and ear canal normal. Left Ear: Tympanic membrane and ear canal normal. Nose: Congestion present. Right Sinus: No maxillary sinus tenderness or frontal sinus tenderness. Left Sinus: No maxillary sinus tenderness or frontal sinus tenderness. Mouth/Throat: Mouth: Mucous membranes are moist. Pharynx: Posterior oropharyngeal erythema present. No oropharyngeal exudate. Comments: Shallow superficial ulceration of the mid lower lip Eyes: Extraocular Movements: Extraocular movements intact. Conjunctiva/sclera: Conjunctivae normal. Pupils: Pupils are equal, round, and reactive to light. Cardiovascular: Rate and Rhythm: Normal rate and regular rhythm. Heart sounds: No murmur heard. Pulmonary: Effort: No respiratory distress. Breath sounds: No wheezing, rhonchi or rales. Musculoskeletal: Cervical back: Neck supple. Lymphadenopathy: Cervical: No cervical adenopathy. Neurological: Mental Status: She is alert. {ASSESSMENT/PLAN: 1. Sore throat - ICD9: 462, ICD10: J02.9 - STREP A MOLECULAR (POC) - negative. - suspect viral URI - Supportive care treatment with rest, cold medicine, and analgesia. Nikita Daniels MD Differential Diagnoses - Viral URI is more likely for the following reason(s): suggested by HANDP - chelitis - herpes labialis is less likely for the following reason(s): no vesicles and usually diffuse distribution on lips Procedures [facility] 01-27-2025 History of Present illness Narrative URGENT CARE CARI Subjective Marianne Saucedo is a 24 year old female. Patient presents with: Nasal Congestion: Post nasal drainage causing cough x this am Patient presents with illness symptoms since this morning. She has cough, postnasal drainage, nasal congestion, and sore throat. She has daily headaches and notices no significant change in symptoms. She gets sores on her lips when she gets sick and noted a sore developing on her lower lip. Denies fever, chills, shortness of breath, body aches, nausea, vomiting, diarrhea. She has taken acetaminophen. Nasal Congestion Associated symptoms include congestion. Review of Systems HENT: Positive for congestion. Objective BP 110/75 Pulse 76 Temp 36.8 C (98.3 F) Resp 18 Wt 102 kg (224 lb 13.9 oz) LMP 05/06/2023 (Exact Date) SpO2 98% BMI 39.83 kg/m Physical Exam Constitutional: General: She is not in acute distress. HENT: Right Ear: Tympanic membrane and ear canal normal. Left Ear: Tympanic membrane and ear canal normal. Nose: Congestion present. Right Sinus: No maxillary sinus tenderness or frontal sinus tenderness. Left Sinus: No maxillary sinus tenderness or frontal sinus tenderness. Mouth/Throat: Mouth: Mucous membranes are moist. Pharynx: Posterior oropharyngeal erythema present. No oropharyngeal exudate. Comments: Shallow superficial ulceration of the mid lower lip Eyes: Extraocular Movements: Extraocular movements intact. Conjunctiva/sclera: Conjunctivae normal. Pupils: Pupils are equal, round, and reactive to light. Cardiovascular: Rate and Rhythm: Normal rate and regular rhythm. Heart sounds: No murmur heard. Pulmonary: Effort: No respiratory distress. Breath sounds: No wheezing, rhonchi or rales. Musculoskeletal: Cervical back: Neck supple. Lymphadenopathy: Cervical: No cervical adenopathy. Neurological: Mental Status: She is alert. {ASSESSMENT/PLAN: 1. Sore throat - ICD9: 462, ICD10: J02.9 - STREP A MOLECULAR (POC) - negative. - suspect viral URI - Supportive care treatment with rest, cold medicine, and analgesia. Nikita Daniels MD Differential Diagnoses - Viral URI is more likely for the following reason(s): suggested by H&P - chelitis - herpes labialis is less likely for the following reason(s): no vesicles and usually diffuse distribution on lips Procedures documented in this encounter [facility] 12-23-2024 Telephone encounter Note Patient called to clarify that she needs the CPT code for the allergy shot to provide to insurance. [facility] 12-23-2024 Miscellaneous Notes Patient called to clarify that she needs the CPT code for the allergy shot to provide to insurance. documented in this encounter [facility] 12-23-2024 Note HNO ID: [id number] Author: MANE HANNA, DO Service: ? Author Type: Physician Type: Progress Notes Filed: 12/23/2024 10:55 Note Text: Allergy and Immunology 12/23/2024 PRIMARY CARE PHYSICIAN: Francesca Gill MD REFERRING PROVIDER: Francesca Gill MD Consultation requested for an allergy/immunology evaluation. My final impression and recommendations will be communicated back to the requesting physician by way of shared medical record, fax, or US mail. CHIEF COMPLAINT: Marianne is a 24-year-old female presenting for evaluation of chronic allergic symptoms. HISTORY OF PRESENT ILLNESS: Marianne reports a long-standing history of allergic symptoms, including nasal congestion, rhinorrhea, and pruritic eyes, which have worsened this year. Symptoms are perennial but intensify during the spring and the transition from fall to winter. She identifies grass exposure, particularly during mowing or direct contact, as a significant trigger. She owns a cat, a dog, and six ducks and is exposed to tobacco smoke from her father. She has tried Claritin and Zyrtec without relief and discontinued their use. She has also used Flonase on an as-needed basis but not consistently. She denies any known history of asthma or eczema and reports 1-2 sinus infections per year, treated with antibiotics. Denies reflux or dental issues. Four years ago, after consuming shrimp and crab at the [employer], she experienced facial swelling, including her lips and eyes, along with blisters on her lips. She is uncertain if this reaction was due to shellfish or concurrent sun poisoning. Since then, she has avoided shrimp, crab, lobster. She does not eat bivalves. Rhinitis/Conjunctivitis: Nasal Symptoms: congestion, runny nose, sneezing, post nasal drip Ocular Symptoms: red, itchy, and watery Seasonality: [x] Spring [] Summer [x] Fall [] Winter [] Year-round Animal Exposure: 1 cat(s), 1 dog(s), 6 bird(s) (ducks) Tobacco smoke exposure: [] Yes [] No Medications: Claritin, Zyrtec didn't really help PRN flonase was not helpful Previous evaluation by an cardiac cath rn? [] Yes [x] No Antihistamine use in last 5 days ? [] Yes [x] No Collateral Allergy Hx: Recurrent or chronic sinusitis: [] Yes [] No 1-2 x year Nasal Polyps: [] Yes [] No Asthma: [] Yes [x] No Eczema or atopic dermatitis: [] Yes [x] No Urticaria: [] Yes [x] No Angioedema: [] Yes [x] No Food allergy: [] Yes [] No Systemic reaction to insect sting: [] Yes [x] No Reaction to penicillin antibiotics: [] Yes [x] No Reaction to latex: [] Yes [x] No Social Hx: Social History Tobacco Use Smoking status: Never Smokeless tobacco: Never Tobacco comments: parents smoke Vaping Use Vaping status: Never Used Substance Use Topics Alcohol use: No Drug use: No Employer And Job Title: No employer specified (unemployed) Years Of Education Completed: 11 years Marital Status: Single with 3 children SOCIAL HISTORY No social history on file. PAST MEDICAL HISTORY Diagnosis Date Anemia Bronchiolitis as infant resolved Cholestasis of in second trimester (HCC) 05/10/2016 Constipation 11/08/2011 depression counseling only NEGATIVE MEDICAL HISTORY normal color vision Pancreatitis (HCC) with gallbladder issues depression Strep throat recurrent, tonsillectomy age 3 years FAMILY HISTORY Problem Relation Age of Onset Asthma Mother No Known Problems Father other (heart murmur) Sister other (heart murmur) Brother No Known Problems Brother Cancer Maternal Grandmother Adrenal Hypertension Maternal Grandmother No Known Problems Maternal Grandfather No Known Problems Paternal Grandmother No Known Problems Paternal Grandfather No Known Problems Son No Known Problems Son PAST SURGICAL HISTORY Procedure Laterality Date LAPAROSCOPY SURG CHOLECYSTECTOMY 07/21/2014 Cholecystectomy, lap MIRENA IUD 06/25/2023 Placed in office TONSILLECTOMY HX age 3 years Current Outpatient Medications Medication Sig SUMAtriptan (IMITREX) 50 mg tablet Take 1 tablet by mouth as needed for migraine headache (see administration instructions). May repeat dose after 2 hours if needed. Maximum daily dose is 200 mg per day. levonorgestrel (MIRENA) 21 mcg/24 hours (8 yrs) 52 mg IUD 1 Each by INTRAUTERINE route as directed. albuterol HFA (PROVENTIL HFA, VENTOLIN HFA) 90 mcg/actuation inhaler Inhale 2 Puffs as instructed every 4 hours as needed for wheezing/shortness of breath. fluticasone (FLONASE) 50 mcg/actuation nasal spray Use 1-2 sprays in each nostril once daily. Olopatadine (PATADAY ONCE DAILY RELIEF) 0.2 % drop Use 1 drop in both eyes once daily. Ujnreujibtveljn-Uemlmekyt-ZR (BROMFED DM) 2-30-10 mg/5 mL syrup Take 5 mL by mouth four times a day as needed. (Patient not taking: Reported on 12/23/2024) No current facility-administered medications for this visit. ALLERGIES No Known Allergi (more content not included)... [facility] 12-23-2024 History of Present illness Narrative Images from the original note were not included. Allergy and Immunology 12/23/2024 PRIMARY CARE PHYSICIAN: Francesca Gill MD REFERRING PROVIDER: Francesca Gill MD Consultation requested for an allergy/immunology evaluation. My final impression and recommendations will be communicated back to the requesting physician by way of shared medical record, fax, or US mail. CHIEF COMPLAINT: Marianne is a 24-year-old female presenting for evaluation of chronic allergic symptoms. HISTORY OF PRESENT ILLNESS: Marianne reports a long-standing history of allergic symptoms, including nasal congestion, rhinorrhea, and pruritic eyes, which have worsened this year. Symptoms are perennial but intensify during the spring and the transition from fall to winter. She identifies grass exposure, particularly during mowing or direct contact, as a significant trigger. She owns a cat, a dog, and six ducks and is exposed to tobacco smoke from her father. She has tried Claritin and Zyrtec without relief and discontinued their use. She has also used Flonase on an as-needed basis but not consistently. She denies any known history of asthma or eczema and reports 1-2 sinus infections per year, treated with antibiotics. Denies reflux or dental issues. Four years ago, after consuming shrimp and crab at the [employer], she experienced facial swelling, including her lips and eyes, along with blisters on her lips. She is uncertain if this reaction was due to shellfish or concurrent sun poisoning. Since then, she has avoided shrimp, crab, lobster. She does not eat bivalves. Rhinitis/Conjunctivitis: Nasal Symptoms: congestion, runny nose, sneezing, post nasal drip Ocular Symptoms: red, itchy, and watery Seasonality: [x] Spring [] Summer [x] Fall [] Winter [] Year-round Animal Exposure: 1 cat(s), 1 dog(s), 6 bird(s) (ducks) Tobacco smoke exposure: [] Yes [] No Medications: Claritin, Zyrtec didn't really help PRN flonase was not helpful Previous evaluation by an cardiac cath rn? [] Yes [x] No Antihistamine use in last 5 days ? [] Yes [x] No Collateral Allergy Hx: Recurrent or chronic sinusitis: [] Yes [] No 1-2 x year Nasal Polyps: [] Yes [] No Asthma: [] Yes [x] No Eczema or atopic dermatitis: [] Yes [x] No Urticaria: [] Yes [x] No Angioedema: [] Yes [x] No Food allergy: [] Yes [] No Systemic reaction to insect sting: [] Yes [x] No Reaction to penicillin antibiotics: [] Yes [x] No Reaction to latex: [] Yes [x] No Social Hx: Social History Tobacco Use Smoking status: Never Smokeless tobacco: Never Tobacco comments: parents smoke Vaping Use Vaping status: Never Used Substance Use Topics Alcohol use: No Drug use: No Employer And Job Title: No employer specified (unemployed) Years Of Education Completed: 11 years Marital Status: Single with 3 children SOCIAL HISTORY No social history on file. PAST MEDICAL HISTORY Diagnosis Date Anemia Bronchiolitis as infant resolved Cholestasis of in second trimester (HCC) 05/10/2016 Constipation 11/08/2011 depression counseling only NEGATIVE MEDICAL HISTORY normal color vision Pancreatitis ([facility]) with gallbladder issues depression Strep throat recurrent, tonsillectomy age 3 years FAMILY HISTORY Problem Relation Age of Onset Asthma Mother No Known Problems Father other (heart murmur) Sister other (heart murmur) Brother No Known Problems Brother Cancer Maternal Grandmother Adrenal Hypertension Maternal Grandmother No Known Problems Maternal Grandfather No Known Problems Paternal Grandmother No Known Problems Paternal Grandfather No Known Problems Son No Known Problems Son PAST SURGICAL HISTORY Procedure Laterality Date LAPAROSCOPY SURG CHOLECYSTECTOMY 07/21/2014 Cholecystectomy, lap MIRENA IUD 06/25/2023 Placed in office TONSILLECTOMY HX age 3 years Current Outpatient Medications Medication Sig SUMAtriptan (IMITREX) 50 mg tablet Take 1 tablet by mouth as needed for migraine headache (see administration instructions). May repeat dose after 2 hours if needed. Maximum daily dose is 200 mg per day. levonorgestrel (MIRENA) 21 mcg/24 hours (8 yrs) 52 mg IUD 1 Each by INTRAUTERINE route as directed. albuterol HFA (PROVENTIL HFA, VENTOLIN HFA) 90 mcg/actuation inhaler Inhale 2 Puffs as instructed every 4 hours as needed for wheezing/shortness of breath. fluticasone (FLONASE) 50 mcg/actuation nasal spray Use 1-2 sprays in each nostril once daily. Olopatadine (PATADAY ONCE DAILY RELIEF) 0.2 % drop Use 1 drop in both eyes once daily. Fihcyfolgvrlhik-Erwgcpztj-AV (BROMFED DM) 2-30-10 mg/5 mL syrup Take 5 mL by mouth four times a day as needed. (Patient not taking: Reported on 12/23/2024) No current facility-administered medications for this visit. ALLERGIES No Known Allergies PHYSICAL EXAM: BP 107/74 (BP Site: Left Arm, BP Position: Sitting, BP Cuff Size: Large Adult) Pulse 79 Resp 16 Wt 99.8 kg (220 lb) LMP 05/06/2023 (Exact Date) SpO2 98% BMI 38.97 kg/m GENERAL: alert, oriented, cooperative with exam HEAD: atraumatic, normocephalic EYES: conjunctivae normal, extraocular movements in tact, pupils equal, round, and reactive, EARS: external ears normal, NOSE: nares patent with significant congestion, nasal crusting, discharge, MOUTH: mucus membranes moist, oropharynx clear without erythema, +dental caries and gingival hyperplasia CV: heart sounds normal, regular rate and rhythm, cap refill normal CHEST/LUNGS: respirations easy and regular, good air entry bilaterally, clear to auscultation with no adventitious sounds SKIN: warm, well perfused, no rashes DATA/DIAGNOSTICS: I personally reviewed and interpreted relevant prior results, notable as below: Latest Ref [facility] 10/08/2024 WBC 3.70 - 11.00 k/uL 11.35 (H) RBC 3.90 - 5.20 m/uL 4.68 Hemoglobin 11.5 - 15.5 g/dL 13.8 Hematocrit 36.0 - 46.0 % 42.5 MCV 80.0 - 100.0 fL 90.8 MCH 26.0 - 34.0 pg 29.5 MCHC 30.5 - 36.0 g/dL 32.5 RDW-CV 11.5 - 15.0 % 12.2 Platelet Count 150 - 400 k/uL 411 (H) MPV 9.0 - 12.7 fL 10.5 Neut% % 66.4 Abs Neut (ANC) 1.45 - 7.50 k/uL 7.54 (H) Lymph% % 22.6 Abs Lymph 1.00 - 4.00 k/uL 2.56 [place]% % 6.8 Abs [place] <0.87 k/uL 0.77 Eosin% % 2.7 Abs Eosin <0.46 k/uL 0.31 Baso% % 1.1 Abs Baso <0.11 k/uL 0.12 (H) Immature Gran % % 0.4 IMMATURE GRANS (ABS) <0.10 k/uL 0.05 NRBC /100 WBC 0.0 Absolute nRBC <0.01 k/uL <0.01 DTYPE Auto 10/18/2021 CT Chest with contrast Impression IMPRESSION: 1. No CT evidence for pulmonary embolus. 2. Subtle groundglass opacities in the right upper lobe and base of right lower lobe. Acute pneumonia is the top consideration. 3. Remainder of exam is unremarkable. 05/01/2018 CT Sinus Impression IMPRESSION: No appreciable change in chronic bilateral maxillary sinus disease. Difficult to determine if the sinuses are diminutive due to atelectasis with bilateral silent sinus syndrome or due to opacification of hypoplastic maxillary sinuses. Allergen Skin Testing 12/23/2024 I personally reviewed this patient's testing and interpreted it as follows: Percutaneous: #40 aeroallergens - negative #6 shellfish - negative Intradermal: #11 - sensitized to molds and trees Histamine/saline controls appropriate Please see procedure note and nursing documentation for full details. MEDICAL DECISION MAKIN. Rhinoconjunctivitis (J31.0) Allergic rhinitis due to mold (J30.89) Seasonal allergic rhinitis due to pollen (J30.1) Symptoms include nasal congestion and ocular pruritus, predominantly in spring and during transitions from fall to winter. Previous use of Claritin, Zyrtec, and intermittent Flonase provided minimal relief. Positive intradermal skin test results for tree pollens and molds. Suspect mixed rhinitis (see dental contribution below) - Educated on proper Flonase administration technique; instructed to use daily for at least one month. - Pataday eye drops as needed - Advised on demand use ofZyrtec on days with high allergen exposure, for sneezing, itching, rhinorrhea - Patient interseted in AIT. Discussed risks and benefits of allergy immunotherapy; provided informational packet and consent form. - Ordered blood tests to confirm skin test results; will review results via [employer]. - Patient to check insurance coverage for allergy shots and inform via [employer]. 2. Adverse food reaction, sequela (T78.1XXS) History of facial swelling 4 years agoafter consuming shrimp and crab, possibly confounded by sun exposure. - Shellfish skin test panel negative - Okay to resume eating with home reintroduction 3. Poor dentition (K08.9) No known dental issues per patient, however multiple carries and gingival hyperplasia/gingivitis indicate inflammation that can contribute to rhinosinusitis. Follow up: 6 months Patient advised to call or return sooner should current symptoms worsen or fail to improve or if new symptoms or problems arise. It was my pleasure to participate in the care of this patient. Mane Hanna DO Allergy and Clinical Immunology [facility] Cari I spent a total of 32 minutes on the date of the service which included preparing to see the patient, [id number] patient care, completing clinical documentation, obtaining and/or reviewing separately obtained history, performing a medically appropriate examination, counseling and educating the patient/family/caregiver, and ordering medications, tests, or procedures. Recording using [employer] software for draft documentation of the visit was discussed with the patient/authorized regional sales representative; all questions welcomed and answered. Patient/authorized regional sales representative agreed to proceed Patient PCP referred patient due to chronic congestion that has gotten worse this year. Patient reports that it seems worse in the spring. Has some symptoms throughout that year. Patient has take Claritin but did not get any relief. documented in this encounter [facility] 12-23-2024 Note HNO ID: [id number] Author: DAVINA PEDROZA LPN Service: ? Author Type: LICENSED NURSE Type: Progress Notes Filed: 12/23/2024 10:55 Note Text: Patient PCP referred patient due to chronic congestion that has gotten worse this year. Patient reports that it seems worse in the spring. Has some symptoms throughout that year. Patient has take Claritin but did not get any relief. [facility] 12-16-2024 Telephone encounter Note See pt message. Pt ED records in scanning. Pt advised that Providers are out of the office today and return tomorrow. Sarah Meeks MA [facility] 12-16-2024 Miscellaneous Notes See pt message. Pt ED records in scanning. Pt advised that Providers are out of the office today and return tomorrow. Sarah Meeks MA documented in this encounter [facility] 12-15-2024 Discharge summary [facility] 12-06-2024 Discharge summary [facility] 12-06-2024 Radiology Diagnostic study note [facility] Services [address] [place], [place] [address] Chest PA and Lateral MR#: [id number] Acct: [id number] Name: MARIANNE SAUCEDO UNRULY Rep #: [id number] : 2000 F 24 From: Ham Rosas MD PCP: ONEIL Hoyos Status: PRE ER Study:Chest PA and Lateral Date of Exam: 12/06/24 Exam# [id number] Ordering Dr: Hakan Bullock MD PROCEDURE: CHEST PA AND LATERAL 12/06/2024 REASON FOR EXAM: COUGH, SOB TECHNIQUE: Frontal and lateral views of the chest. COMPARISON: 11/25/2023 FINDINGS: The lungs are clear. Pulmonary vascularity appears within limits. No pleural effusion. The cardiac and mediastinal contours appear within limits. Status post cholecystectomy. The visualized osseous structures appear within limits. RAD/Chest PA and Lateral IMPRESSION: No evidence of acute disease. Reading Location: [id number] CC: ONEIL Barraza; Dr. Rojelio Bullock MD ~ Supply Chain Tech: Signed [facility] 12-05-2024 Instructions Ann Vega APRN.INDUSTRIAL RADIOGRAPHER - 12/05/2024 2:34 PM EDT 1. Sore throat (J02.9) - Pharyngeal erythema noted on examination. - Performed rapid strep test; results negative. - Differential diagnosis includes viral upper respiratory infection. - Symptoms likely viral; advised symptomatic management. - Recommended acetaminophen or ibuprofen for antipyresis and analgesia. - Prescribed cough syrup; transmitted prescription to pharmacy. - Advised adequate hydration and rest. 2. Viral URI with cough - ICD9: 465.9, ICD10: J06.9 - [id number] 2 MG-30 MG-10 MG/5 ML ORAL SYRUP - Follow-up with your PCP in 3-5 days if symptoms have not improved or sooner if symptoms worsen - Discussed red flags and need for immediate medical evaluation if any occur. - Discussed supportive care treatment with fluids, rest and analgesia. - Discussed expected course of illness Ann Vega APRN.CNP A strep test was performed today. Wait for the results; if the test is positive, you may be started on an antibiotic. A prescription for cough syrup has been sent to your pharmacy--use it as needed to help relieve your cough. For fever and pain, take Tylenol or ibuprofen as directed. Get plenty of rest and drink lots of fluids while your symptoms run their course over the next 5-6 days. documented in this encounter [facility] 12-05-2024 Note HNO ID: [id number] Author: ANN VEGA APRN.CNP Service: ? Author Type: Nurse Practitioner Type: Progress Notes Filed: 12/05/2024 14:46 Note Text: [facility] Subjective Marianne Saucedo is a 24 year old female. Patient presents with: Nasal Congestion: Headache, runny nose, cough, x 3 days Fever last evening Nasal Congestion Associated symptoms include congestion. URI Symptoms: - Stuffy nose, headache, and cough x3 days. - Fever of 102 degreeF last night; attempted to reduce fever with a shower, no antipyretics taken. - Sore throat today. - Denies nausea, emesis, myalgias, or chills. - No known sick contacts at home. Review of Systems HENT: Positive for congestion. Constitutional: (+) fever, (-) chills Head: (+) headache Ears/Nose/Mouth/Throat: (+) congestion, (+) sore throat Respiratory: (+) cough Gastrointestinal: (-) nausea, (-) vomiting Musculoskeletal: (-) myalgia Objective BP 111/80 Pulse 80 Temp 36.4 ?C (97.6 ?F) Resp 18 Wt 100 kg (220 lb 7.4 oz) LMP 05/06/2023 (Exact Date) SpO2 98% BMI 39.05 kg/m? PAST MEDICAL HISTORY Diagnosis Date Anemia Bronchiolitis as resolved Cholestasis of in second trimester (HCC) 05/10/2016 Constipation 11/08/2011 depression counseling only NEGATIVE MEDICAL HISTORY normal color vision Pancreatitis ([facility]) with gallbladder issues depression Strep throat recurrent, tonsillectomy age 3 years PAST SURGICAL HISTORY Procedure Laterality Date LAPAROSCOPY SURG CHOLECYSTECTOMY 07/21/2014 Cholecystectomy, lap MIRENA IUD 06/25/2023 Placed in office TONSILLECTOMY HX age 3 years ALLERGIES Patient has no known allergies. MEDICATIONS SUMAtriptan (IMITREX) 50 mg tablet Take 1 tablet by mouth as needed for migraine headache (see administration instructions). May repeat dose after 2 hours if needed. Maximum daily dose is 200 mg per day. levonorgestrel (MIRENA) 21 mcg/24 hours (8 yrs) 52 mg IUD 1 Each by INTRAUTERINE route as directed. albuterol HFA (PROVENTIL HFA, VENTOLIN HFA) 90 mcg/actuation inhaler Inhale 2 Puffs as instructed every 4 hours as needed for wheezing/shortness of breath. Jergkcsiumlkjbq-Ryghrfdno-YK (BROMFED DM) 2-30-10 mg/5 mL syrup Take 5 mL by mouth four times a day as needed. FAMILY HISTORY Problem Relation Age of Onset Asthma Mother No Known Problems Father other (heart murmur) Sister other (heart murmur) Brother No Known Problems Brother Cancer Maternal Grandmother Adrenal Hypertension Maternal Grandmother No Known Problems Maternal Grandfather No Known Problems Paternal Grandmother No Known Problems Paternal Grandfather No Known Problems Son No Known Problems Son Social History Tobacco Use Smoking status: Never Smokeless tobacco: Never Tobacco comments: parents smoke Vaping Use Vaping status: Never Used Substance Use Topics Alcohol use: No Drug use: No Physical Exam Vitals and nursing note reviewed. Constitutional: General: She is not in acute distress. Appearance: Normal appearance. She is not ill-appearing. HENT: Mouth/Throat: Mouth: Mucous membranes are moist. Pharynx: Uvula midline. No pharyngeal swelling or uvula swelling. Tonsils: No tonsillar exudate or tonsillar abscesses. Neurological: Mental Status: She is alert. General: No acute distress. HEENT: Mild pharyngeal erythema, no signs of otitis media. CV: Regular heart sounds. Resp: Lungs clear to auscultation. {1. Sore throat (J02.9) - Pharyngeal erythema noted on examination. - Performed rapid strep test; results negative. - Differential diagnosis includes viral upper respiratory infection. - Symptoms likely viral; advised symptomatic management. - Recommended acetaminophen or ibuprofen for antipyresis and analgesia. - Prescribed cough syrup; transmitted prescription to pharmacy. - Advised adequate hydration and rest. 2. Viral URI with cough - ICD9: 465.9, ICD10: J06.9 - [id number] 2 MG-30 MG-10 MG/5 ML ORAL SYRUP - Follow-up with your PCP in 3-5 days if symptoms have not improved or sooner if symptoms worsen - Discussed red flags and need for immediate medical evaluation if any occur. - Discussed supportive care treatment with fluids, rest and analgesia. - Discussed expected course of illness Ann Vega APRN.INDUSTRIAL RADIOGRAPHER Recording using [employer] software for draft documentation of the visit was discussed with the patient/authorized regional sales representative; all questions welcomed and answered. Patient/authorized regional sales representative agreed to proceed Disposition The patient was discharged. OTC Medications were advised: Procedures [facility] 12-05-2024 History of Present illness Narrative [facility] Subjective Marianne Saucedo is a 24 year old female. Patient presents with: Nasal Congestion: Headache, runny nose, cough, x 3 days Fever last evening Nasal Congestion Associated symptoms include congestion. URI Symptoms: - Stuffy nose, headache, and cough x3 days. - Fever of 102 degreeF last night; attempted to reduce fever with a shower, no antipyretics taken. - Sore throat today. - Denies nausea, emesis, myalgias, or chills. - No known sick contacts at home. Review of Systems HENT: Positive for congestion. Constitutional: (+) fever, (-) chills Head: (+) headache Ears/Nose/Mouth/Throat: (+) congestion, (+) sore throat Respiratory: (+) cough Gastrointestinal: (-) nausea, (-) vomiting Musculoskeletal: (-) myalgia Objective BP 111/80 Pulse 80 Temp 36.4 C (97.6 F) Resp 18 Wt 100 kg (220 lb 7.4 oz) LMP 05/06/2023 (Exact Date) SpO2 98% BMI 39.05 kg/m PAST MEDICAL HISTORY Diagnosis Date Anemia Bronchiolitis as resolved Cholestasis of in second trimester (HCC) 05/10/2016 Constipation 11/08/2011 depression counseling only NEGATIVE MEDICAL HISTORY normal color vision Pancreatitis ([facility]) with gallbladder issues depression Strep throat recurrent, tonsillectomy age 3 years PAST SURGICAL HISTORY Procedure Laterality Date LAPAROSCOPY SURG CHOLECYSTECTOMY 07/21/2014 Cholecystectomy, lap MIRENA IUD 06/25/2023 Placed in office TONSILLECTOMY HX age 3 years ALLERGIES Patient has no known allergies. MEDICATIONS SUMAtriptan (IMITREX) 50 mg tablet Take 1 tablet by mouth as needed for migraine headache (see administration instructions). May repeat dose after 2 hours if needed. Maximum daily dose is 200 mg per day. levonorgestrel (MIRENA) 21 mcg/24 hours (8 yrs) 52 mg IUD 1 Each by INTRAUTERINE route as directed. albuterol HFA (PROVENTIL HFA, VENTOLIN HFA) 90 mcg/actuation inhaler Inhale 2 Puffs as instructed every 4 hours as needed for wheezing/shortness of breath. Cajgzvavdrapnit-Jfjwnzcph-JO (BROMFED DM) 2-30-10 mg/5 mL syrup Take 5 mL by mouth four times a day as needed. FAMILY HISTORY Problem Relation Age of Onset Asthma Mother No Known Problems Father other (heart murmur) Sister other (heart murmur) Brother No Known Problems Brother Cancer Maternal Grandmother Adrenal Hypertension Maternal Grandmother No Known Problems Maternal Grandfather No Known Problems Paternal Grandmother No Known Problems Paternal Grandfather No Known Problems Son No Known Problems Son Social History Tobacco Use Smoking status: Never Smokeless tobacco: Never Tobacco comments: parents smoke Vaping Use Vaping status: Never Used Substance Use Topics Alcohol use: No Drug use: No Physical Exam Vitals and nursing note reviewed. Constitutional: General: She is not in acute distress. Appearance: Normal appearance. She is not ill-appearing. HENT: Mouth/Throat: Mouth: Mucous membranes are moist. Pharynx: Uvula midline. No pharyngeal swelling or uvula swelling. Tonsils: No tonsillar exudate or tonsillar abscesses. Neurological: Mental Status: She is alert. General: No acute distress. HEENT: Mild pharyngeal erythema, no signs of otitis media. CV: Regular heart sounds. Resp: Lungs clear to auscultation. {1. Sore throat (J02.9) - Pharyngeal erythema noted on examination. - Performed rapid strep test; results negative. - Differential diagnosis includes viral upper respiratory infection. - Symptoms likely viral; advised symptomatic management. - Recommended acetaminophen or ibuprofen for antipyresis and analgesia. - Prescribed cough syrup; transmitted prescription to pharmacy. - Advised adequate hydration and rest. 2. Viral URI with cough - ICD9: 465.9, ICD10: J06.9 - [id number] 2 MG-30 MG-10 MG/5 ML ORAL SYRUP - Follow-up with your PCP in 3-5 days if symptoms have not improved or sooner if symptoms worsen - Discussed red flags and need for immediate medical evaluation if any occur. - Discussed supportive care treatment with fluids, rest and analgesia. - Discussed expected course of illness Ann Vega APRN.INDUSTRIAL RADIOGRAPHER Recording using [employer] software for draft documentation of the visit was discussed with the patient/authorized regional sales representative; all questions welcomed and answered. Patient/authorized regional sales representative agreed to proceed Disposition The patient was discharged. OTC Medications were advised: Procedures documented in this encounter [facility] 11-25-2024 History of Present illness Narrative Chief Complaint Patient presents with: Allergies HPI Marianne Saucedo is a 24 year old female who presents here today for allergies. Pt is having environmental allergy issues and would like to discuss allergy testing. States these symptoms started more recently and is not a chronic issue. Reports whenever she's around fresh cut grass or pollen, she experiences nasal congestion, watery/itchy eyes and her throat feels scratchy. Has taken Claritin at times when she experiences this and it does seem to help, but does not use all the time. No particular reason why she doesn't take the medication. Has tried using Flonase in the past, but doesn't really like using nasal sprays much. Is interested in getting allergy testing done so she knows what she has allergies too, possibly getting shots if needed. HM - Declines Covid vaccine. Anxiety/Depression screening completed, negative. Past medical history, appointments, medications, allergies reviewed. 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 05/10/2016 Constipation 11/08/2011 depression counseling only NEGATIVE MEDICAL HISTORY normal color vision Pancreatitis with gallbladder issues depression Strep throat recurrent, tonsillectomy age 3 years Previous Surgical History PAST SURGICAL HISTORY Procedure Laterality Date LAPAROSCOPY SURG CHOLECYSTECTOMY 07/21/2014 Cholecystectomy, lap MIRENA IUD 06/25/2023 Placed in office TONSILLECTOMY HX age 3 years Family History FAMILY HISTORY Problem Relation Age of Onset Asthma Mother No Known Problems Father other (heart murmur) Sister other (heart murmur) Brother No Known Problems Brother Cancer Maternal Grandmother Adrenal Hypertension Maternal Grandmother No Known Problems Maternal Grandfather No Known Problems Paternal Grandmother No Known Problems Paternal Grandfather No Known Problems Son No Known Problems Son Patient Allergies ALLERGIES No Known Allergies Current Medications Current Outpatient Medications on File Prior to Visit Medication Sig SUMAtriptan (IMITREX) 50 mg tablet Take 1 tablet by mouth as needed for migraine headache (see administration instructions). May repeat dose after 2 hours if needed. Maximum daily dose is 200 mg per day. levonorgestrel (MIRENA) 21 mcg/24 hours (8 yrs) 52 mg IUD 1 Each by INTRAUTERINE route as directed. albuterol HFA (PROVENTIL HFA, VENTOLIN HFA) 90 mcg/actuation inhaler Inhale 2 Puffs as instructed every 4 hours as needed for wheezing/shortness of breath. sertraline (ZOLOFT) 50 mg tablet Take 1 tablet by mouth once daily. No current facility-administered medications on file prior to visit. Social History Social History Tobacco Use Smoking status: Never Smokeless tobacco: Never Tobacco comments: parents smoke Vaping Use Vaping status: Never Used Substance Use Topics Alcohol use: No Drug use: No EXAM: BP 100/64 (BP Site: Left Arm, BP Position: Sitting, BP Cuff Size: Large Adult) Pulse 76 Resp 16 Wt 100.7 kg (222 lb 0.1 oz) LMP 05/06/2023 (Exact Date) BMI 39.33 kg/m General Appearance: Well appearing, alert, in no acute distress, well-hydrated, well nourished and Obese. Ears: External ears normal, canals clear. Oropharynx: Lips, mucosa, and tongue normal, teeth and gums normal, oropharynx normal. Neck: Supple, no adenopathy; thyroid symmetric, normal size, no bruits. Lungs: Lungs clear to auscultation. No wheezing, rhonchi, rales.. Heart: RRR without murmur, gallop, or rubs. No ectopy. Health Maintenance List Depression Screening Never done Anxiety Screening Never done Covid-19 Vaccine( season) due on 03/21/2024 Influenza Vaccine(Season Ended) due on 03/21/2025 Cervical Cancer Screening due on 05/14/2027 DTaP,Tdap,Td Vaccine(10 - Td or Tdap) due on 08/21/2030 Hepatitis B Vaccine Completed HPV Vaccine Completed Hepatitis C Screening Completed HIV Screening Completed Data reviewed None ASSESSMENT/PLAN: 1. Environmental allergies - ICD9: V15.09, ICD10: Z91.09 (primary diagnosis) - Consult Allergy to discuss possible allergy testing - Discussed OTC Claritin/Flonase 2. Itchy eyes - ICD9: 379.99, ICD10: H57.9 - as noted above - Eye drops 3. Nasal congestion - ICD9: 478.19, ICD10: R09.81 - as noted above - Use Flonase 4. Watery eyes - ICD9: 375.20, ICD10: H04.203 - As noted above - eye drops 5. Encounter for screening examination for other mental health and behavioral disorders - ICD9: V79.8, ICD10: Z13.39 - Negative - ANXIETY SCREENING 6. Screening for depression - ICD9: V79.0, ICD10: Z13.31 - Negative - DEPRESSION SCREENING Follow up prn. I agree with the Chief Complaint, ROS, and Past Histories independently gathered by the clinical other sales support worker and the remaining scribed note accurately describes my personal service to the patient. Medical Decision Making: Problems: Low: Acute, uncomplicated illness or injury Risk: Moderate: Drug management Medical Decision Making Level: 3 - Sheng Gill MD The documentation for this note was completed by Sarah Meeks MA acting as scribe for Francesca Gill MD. November 25, 2024 8:52 AM. Sarah Meeks MA documented in this encounter [facility] 11-25-2024 Note HNO ID: [id number] Author: FRANCESCA GILL MD Service: ? Author Type: Physician Type: Progress Notes Filed: 11/25/2024 09:01 Note Text: Chief Complaint Patient presents with: Allergies HPI Marianne Saucedo is a 24 year old female who presents here today for allergies. Pt is having environmental allergy issues and would like to discuss allergy testing. States these symptoms started more recently and is not a chronic issue. Reports whenever she's around fresh cut grass or pollen, she experiences nasal congestion, watery/itchy eyes and her throat feels scratchy. Has taken Claritin at times when she experiences this and it does seem to help, but does not use all the time. No particular reason why she doesn't take the medication. Has tried using Flonase in the past, but doesn't really like using nasal sprays much. Is interested in getting allergy testing done so she knows what she has allergies too, possibly getting shots if needed. HM - Declines Covid vaccine. Anxiety/Depression screening completed, negative. Past medical history, appointments, medications, allergies reviewed. Previous Medical History PAST MEDICAL HISTORY Diagnosis Date Anemia Bronchiolitis as resolved Cholestasis of in second trimester 05/10/2016 Constipation 11/08/2011 depression counseling only NEGATIVE MEDICAL HISTORY normal color vision Pancreatitis with gallbladder issues depression Strep throat recurrent, tonsillectomy age 3 years Previous Surgical History PAST SURGICAL HISTORY Procedure Laterality Date LAPAROSCOPY SURG CHOLECYSTECTOMY 07/21/2014 Cholecystectomy, lap MIRENA IUD 06/25/2023 Placed in office TONSILLECTOMY HX age 3 years Family History FAMILY HISTORY Problem Relation Age of Onset Asthma Mother No Known Problems Father other (heart murmur) Sister other (heart murmur) Brother No Known Problems Brother Cancer Maternal Grandmother Adrenal Hypertension Maternal Grandmother No Known Problems Maternal Grandfather No Known Problems Paternal Grandmother No Known Problems Paternal Grandfather No Known Problems Son No Known Problems Son Patient Allergies ALLERGIES No Known Allergies Current Medications Current Outpatient Medications on File Prior to Visit Medication Sig SUMAtriptan (IMITREX) 50 mg tablet Take 1 tablet by mouth as needed for migraine headache (see administration instructions). May repeat dose after 2 hours if needed. Maximum daily dose is 200 mg per day. levonorgestrel (MIRENA) 21 mcg/24 hours (8 yrs) 52 mg IUD 1 Each by INTRAUTERINE route as directed. albuterol HFA (PROVENTIL HFA, VENTOLIN HFA) 90 mcg/actuation inhaler Inhale 2 Puffs as instructed every 4 hours as needed for wheezing/shortness of breath. sertraline (ZOLOFT) 50 mg tablet Take 1 tablet by mouth once daily. No current facility-administered medications on file prior to visit. Social History Social History Tobacco Use Smoking status: Never Smokeless tobacco: Never Tobacco comments: parents smoke Vaping Use Vaping status: Never Used Substance Use Topics Alcohol use: No Drug use: No EXAM: BP 100/64 (BP Site: Left Arm, BP Position: Sitting, BP Cuff Size: Large Adult) Pulse 76 Resp 16 Wt 100.7 kg (222 lb 0.1 oz) LMP 05/06/2023 (Exact Date) BMI 39.33 kg/m? General Appearance: Well appearing, alert, in no acute distress, well-hydrated, well nourished and Obese. Ears: External ears normal, canals clear. Oropharynx: Lips, mucosa, and tongue normal, teeth and gums normal, oropharynx normal. Neck: Supple, no adenopathy; thyroid symmetric, normal size, no bruits. Lungs: Lungs clear to auscultation. No wheezing, rhonchi, rales.. Heart: RRR without murmur, gallop, or rubs. No ectopy. Health Maintenance List Depression Screening Never done Anxiety Screening Never done Covid-19 Vaccine( season) due on 03/21/2024 Influenza Vaccine(Season Ended) due on 03/21/2025 Cervical Cancer Screening due on 05/14/2027 DTaP,Tdap,Td Vaccine(10 - Td or Tdap) due on 08/21/2030 Hepatitis B Vaccine Completed HPV Vaccine Completed Hepatitis C Screening Completed HIV Screening Completed Data reviewed None ASSESSMENT/PLAN: 1. Environmental allergies - ICD9: V15.09, ICD10: Z91.09 (primary diagnosis) - Consult Allergy to discuss possible allergy testing - Discussed OTC Claritin/Flonase 2. Itchy eyes - ICD9: 379.99, ICD10: H57.9 - as noted above - Eye drops 3. Nasal congestion - ICD9: 478.19, ICD10: R09.81 - as noted above - Use Flonase 4. Watery eyes - ICD9: 375.20, ICD10: H04.203 - As noted above - eye drops 5. Encounter for screening examination for other mental health and behavioral disorders - ICD9: V79.8, ICD10: Z13.39 - Negative - ANXIETY SCREENING 6. Screening for depression - ICD9: V79.0, ICD10: Z13.31 - Negative - DEPRESSION SCREENING Follow up prn. I agree with the C (more content not included)... [facility] 11-17-2024 Note HNO ID: [id number] Author: JOB PEREIRA APRN.[facility] Service: ? Author Type: Nurse Practitioner Type: Progress Notes Filed: 11/17/2024 14:02 Note Text: [facility] Subjective Marianne Saucedo is a 24 year old female. Patient presents with: Sore Throat: nasal congestion, drainage and nausea x 1 week Patient came in with complaints of a weeks worth of sinus congestion drainage sore throat. Patient says it does not seem to be getting better. Patient denies any shortness of breath or other symptoms. The history is provided by the patient. No heat and frost insulator was used. Sore Throat Associated symptoms include congestion. Review of Systems Constitutional: Negative. HENT: Positive for congestion and sore throat. Objective BP 118/72 Pulse 90 Temp 36.4 ?C (97.6 ?F) Resp 16 Wt 100.6 kg (221 lb 12.5 oz) LMP 05/06/2023 (Exact Date) SpO2 99% BMI 39.29 kg/m? Physical Exam Constitutional: Appearance: Normal appearance. HENT: Right Ear: Tympanic membrane, ear canal and external ear normal. Left Ear: Tympanic membrane, ear canal and external ear normal. Nose: Nose normal. Mouth/Throat: Mouth: Mucous membranes are moist. Eyes: Pupils: Pupils are equal, round, and reactive to light. Cardiovascular: Rate and Rhythm: Normal rate and regular rhythm. Heart sounds: Normal heart sounds. Pulmonary: Effort: Pulmonary effort is normal. Breath sounds: Normal breath sounds. Neurological: Mental Status: She is alert. PAST MEDICAL HISTORY Diagnosis Date Anemia Bronchiolitis as infant resolved Cholestasis of in second trimester 05/10/2016 Constipation 11/08/2011 depression counseling only NEGATIVE MEDICAL HISTORY normal color vision Pancreatitis with gallbladder issues depression Strep throat recurrent, tonsillectomy age 3 years PAST SURGICAL HISTORY Procedure Laterality Date LAPAROSCOPY SURG CHOLECYSTECTOMY 07/21/2014 Cholecystectomy, lap MIRENA IUD 06/25/2023 Placed in office TONSILLECTOMY HX age 3 years ALLERGIES Patient has no known allergies. MEDICATIONS SUMAtriptan (IMITREX) 50 mg tablet Take 1 tablet by mouth as needed for migraine headache (see administration instructions). May repeat dose after 2 hours if needed. Maximum daily dose is 200 mg per day. levonorgestrel (MIRENA) 21 mcg/24 hours (8 yrs) 52 mg IUD 1 Each by INTRAUTERINE route as directed. albuterol HFA (PROVENTIL HFA, VENTOLIN HFA) 90 mcg/actuation inhaler Inhale 2 Puffs as instructed every 4 hours as needed for wheezing/shortness of breath. sertraline (ZOLOFT) 50 mg tablet Take 1 tablet by mouth once daily. FAMILY HISTORY Problem Relation Age of Onset Asthma Mother No Known Problems Father other (heart murmur) Sister other (heart murmur) Brother No Known Problems Brother Cancer Maternal Grandmother Adrenal Hypertension Maternal Grandmother No Known Problems Maternal Grandfather No Known Problems Paternal Grandmother No Known Problems Paternal Grandfather No Known Problems Son No Known Problems Son Social History Tobacco Use Smoking status: Never Smokeless tobacco: Never Tobacco comments: parents smoke Vaping Use Vaping status: Never Used Substance Use Topics Alcohol use: No Drug use: No {ASSESSMENT/PLAN: 1. Sore throat - ICD9: 462, ICD10: J02.9 (primary diagnosis) - Group A strep molecular testing negative - Discussed supportive care treatment with fluids, rest and analgesia. - STREP A MOLECULAR (POC) 2. Rhinosinusitis - ICD9: 473.9, ICD10: J32.9 - Will begin treatment with as per antibiotic as written, see orders - AMOXICILLIN 875 MG-POTASSIUM CLAVULANATE 125 MG TABLET Job Pereira APRN.[facility] History and Record Review External record(s) reviewed: no prior records. Disposition The patient was discharged. Procedures [facility] 11-17-2024 History of Present illness Narrative [facility] Subjective Marianne Saucedo is a 24 year old female. Patient presents with: Sore Throat: nasal congestion, drainage and nausea x 1 week Patient came in with complaints of a weeks worth of sinus congestion drainage sore throat. Patient says it does not seem to be getting better. Patient denies any shortness of breath or other symptoms. The history is provided by the patient. No heat and frost insulator was used. Sore Throat Associated symptoms include congestion. Review of Systems Constitutional: Negative. HENT: Positive for congestion and sore throat. Objective BP 118/72 Pulse 90 Temp 36.4 C (97.6 F) Resp 16 Wt 100.6 kg (221 lb 12.5 oz) LMP 05/06/2023 (Exact Date) SpO2 99% BMI 39.29 kg/m Physical Exam Constitutional: Appearance: Normal appearance. HENT: Right Ear: Tympanic membrane, ear canal and external ear normal. Left Ear: Tympanic membrane, ear canal and external ear normal. Nose: Nose normal. Mouth/Throat: Mouth: Mucous membranes are moist. Eyes: Pupils: Pupils are equal, round, and reactive to light. Cardiovascular: Rate and Rhythm: Normal rate and regular rhythm. Heart sounds: Normal heart sounds. Pulmonary: Effort: Pulmonary effort is normal. Breath sounds: Normal breath sounds. Neurological: Mental Status: She is alert. PAST MEDICAL HISTORY Diagnosis Date Anemia Bronchiolitis as infant resolved Cholestasis of in second trimester 05/10/2016 Constipation 11/08/2011 depression counseling only NEGATIVE MEDICAL HISTORY normal color vision Pancreatitis with gallbladder issues depression Strep throat recurrent, tonsillectomy age 3 years PAST SURGICAL HISTORY Procedure Laterality Date LAPAROSCOPY SURG CHOLECYSTECTOMY 07/21/2014 Cholecystectomy, lap MIRENA IUD 06/25/2023 Placed in office TONSILLECTOMY HX age 3 years ALLERGIES Patient has no known allergies. MEDICATIONS SUMAtriptan (IMITREX) 50 mg tablet Take 1 tablet by mouth as needed for migraine headache (see administration instructions). May repeat dose after 2 hours if needed. Maximum daily dose is 200 mg per day. levonorgestrel (MIRENA) 21 mcg/24 hours (8 yrs) 52 mg IUD 1 Each by INTRAUTERINE route as directed. albuterol HFA (PROVENTIL HFA, VENTOLIN HFA) 90 mcg/actuation inhaler Inhale 2 Puffs as instructed every 4 hours as needed for wheezing/shortness of breath. sertraline (ZOLOFT) 50 mg tablet Take 1 tablet by mouth once daily. FAMILY HISTORY Problem Relation Age of Onset Asthma Mother No Known Problems Father other (heart murmur) Sister other (heart murmur) Brother No Known Problems Brother Cancer Maternal Grandmother Adrenal Hypertension Maternal Grandmother No Known Problems Maternal Grandfather No Known Problems Paternal Grandmother No Known Problems Paternal Grandfather No Known Problems Son No Known Problems Son Social History Tobacco Use Smoking status: Never Smokeless tobacco: Never Tobacco comments: parents smoke Vaping Use Vaping status: Never Used Substance Use Topics Alcohol use: No Drug use: No {ASSESSMENT/PLAN: 1. Sore throat - ICD9: 462, ICD10: J02.9 (primary diagnosis) - Group A strep molecular testing negative - Discussed supportive care treatment with fluids, rest and analgesia. - STREP A MOLECULAR (POC) 2. Rhinosinusitis - ICD9: 473.9, ICD10: J32.9 - Will begin treatment with as per antibiotic as written, see orders - AMOXICILLIN 875 MG-POTASSIUM CLAVULANATE 125 MG TABLET Job Pereira APRN.[facility] History and Record Review External record(s) reviewed: no prior records. Disposition The patient was discharged. Procedures documented in this encounter [facility] 10-08-2024 Telephone encounter Note Pt called and is notified of providers message and instructions. Pt voices understanding. Kandy Vera RN [facility] 10-08-2024 Miscellaneous Notes Pt called and is notified of providers message and instructions. Pt voices understanding. Kandy Vera RN Please let patient know her insurance rejected ubrelvy. I sent in an rx for imitrex. She should try this for 2 weeks and follow up with PCP team. This was denied. She need to try formularies first. Note from payer: Coverage is provided when the member has met the step therapy requirement for this medication. Step therapy is a type of prior authorization that requires that you try one or more preferred drugs before you are approved for the drug requested. The requested medication requires the member to have a history of at least 14 days of therapy with at least two preferred medications in this UPDL category OR documentation why the member is unable to take the medication not requiring step therapy, which include but are not limited to: Imitrex Nasal [place], naratriptan tablets, rizatriptan (oral disintegrating tablets and tablets), and sumatriptan (injection, nasal spray, and tablets). [facility] Policy for Medical Necessity as posted on the [place] [employer] website and [facility] Preferred Drug List criteria were reviewed and per [place] Administrative Code Rule 5160-1-01 (C) and (B), a medically necessary service must include: generally accepted standards of medical practice, be clinically appropriate in administration, treatment and outcome and be the lowest cost alternative to effectively treat the condition. Please contact your provider to assist you with other treatment options that might be covered under your benefit package, or other services that might be available through the community Electronic PA rec'd ad completed for ubrelvy. documented in this encounter [facility] 10-08-2024 Telephone encounter Note Please let patient know her insurance rejected ubrelvy. I sent in an rx for imitrex. She should try this for 2 weeks and follow up with PCP team. [facility] 10-08-2024 Telephone encounter Note This was denied. She need to try formularies first. Note from payer: Coverage is provided when the member has met the step therapy requirement for this medication. Step therapy is a type of prior authorization that requires that you try one or more preferred drugs before you are approved for the drug requested. The requested medication requires the member to have a history of at least 14 days of therapy with at least two preferred medications in this UPDL category OR documentation why the member is unable to take the medication not requiring step therapy, which include but are not limited to: Imitrex Nasal [place], naratriptan tablets, rizatriptan (oral disintegrating tablets and tablets), and sumatriptan (injection, nasal spray, and tablets). [facility] Policy for Medical Necessity as posted on the [facility] website and [facility] Preferred Drug List criteria were reviewed and per [place] Administrative Code Rule 5160-1-01 (C) and (B), a medically necessary service must include: generally accepted standards of medical practice, be clinically appropriate in administration, treatment and outcome and be the lowest cost alternative to effectively treat the condition. Please contact your provider to assist you with other treatment options that might be covered under your benefit package, or other services that might be available through the community [facility] 10-08-2024 Telephone encounter Note Electronic PA rec'd ad completed for ubrelvy. [facility] 10-08-2024 Note HNO ID: [id number] Author: SAM OSBORNE APRN.[facility] Service: ? Author Type: Nurse Practitioner Type: Progress Notes Filed: 10/08/2024 08:48 Note Text: Chief Complaint Patient presents with: Headache: X 2 days HPI Marianne Saucedo is a 24 year old female who presents here today for Above Complaints.. Patient presents today with headache x2 days. Patient states she had a prior headache for 3 weeks which she took tylenol, ibuprofen, advil and Excedrin and it broke on its own. After two weeks the migraine returned two days ago. Patient states she has not taken anything for her headache. She is having light sensitivity and sound sensitivity but denies aura prior to her migraines, numbness and tingling and weakness. Patient states the pain is either on her left tenriism or in between her eyes. Patient denies nausea and vomiting. Patient denies this being the worst headache she has ever had. Patient denies fever, chills, chest pain and SOB. Past medical history, appointments, medications, allergies reviewed. 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 05/10/2016 Constipation 11/08/2011 depression counseling only NEGATIVE MEDICAL HISTORY normal color vision Pancreatitis with gallbladder issues depression Strep throat recurrent, tonsillectomy age 3 years Previous Surgical History PAST SURGICAL HISTORY Procedure Laterality Date LAPAROSCOPY SURG CHOLECYSTECTOMY 07/21/2014 Cholecystectomy, lap MIRENA IUD 06/25/2023 Placed in office TONSILLECTOMY HX age 3 years Family History FAMILY HISTORY Problem Relation Age of Onset Asthma Mother No Known Problems Father other (heart murmur) Sister other (heart murmur) Brother No Known Problems Brother Cancer Maternal Grandmother Adrenal Hypertension Maternal Grandmother No Known Problems Maternal Grandfather No Known Problems Paternal Grandmother No Known Problems Paternal Grandfather No Known Problems Son No Known Problems Son Patient Allergies ALLERGIES No Known Allergies Current Medications Current Outpatient Medications on File Prior to Visit Medication Sig levonorgestrel (MIRENA) 21 mcg/24 hours (7 yrs) 52 mg IUD 1 Each by INTRAUTERINE route as directed. albuterol HFA (PROVENTIL HFA, VENTOLIN HFA) 90 mcg/actuation inhaler Inhale 2 Puffs as instructed every 4 hours as needed for wheezing/shortness of breath. sertraline (ZOLOFT) 50 mg tablet Take 1 tablet by mouth once daily. No current facility-administered medications on file prior to visit. Social History Social History Tobacco Use Smoking status: Never Smokeless tobacco: Never Tobacco comments: parents smoke Vaping Use Vaping status: Never Used Substance Use Topics Alcohol use: No Drug use: No Review of Symptoms REVIEW OF SYSTEMS GENERAL: No weight loss, malaise or fevers RESPIRATORY: Negative for cough, hemoptysis, wheezing, COPD, dyspnea or shortness of breath CARDIOVASCULAR: Negative for chest pain, leg swelling, hypertension, CHF or palpitations EXAM: BP 104/69 Pulse 80 Wt 98 kg (216 lb 0.8 oz) LMP 05/06/2023 (Exact Date) BMI 38.27 kg/m? General Appearance: Well appearing, alert, in no acute distress, well-hydrated, well nourished.. Lungs: Lungs clear to auscultation. No wheezing, rhonchi, rales.. Heart: RRR without murmur, gallop, or rubs. No ectopy. Health Maintenance List Depression Screening Never done Anxiety Screening Never done Influenza Vaccine(1) due on 03/21/2024 Covid-19 Vaccine( season) due on 03/21/2024 Cervical Cancer Screening due on 05/14/2027 DTaP,Tdap,Td Vaccine(10 - Td or Tdap) due on 08/21/2030 Hepatitis B Vaccine Completed HPV Vaccine Completed Hepatitis C Screening Completed HIV Screening Completed ASSESSMENT/PLAN: 1. Iron deficiency anemia, unspecified iron deficiency anemia type - ICD9: 280.9, ICD10: D50.9 (primary diagnosis) - COMPLETE BLOOD COUNT AND DIFFERENTIAL - IRON AND TIBC - FERRITIN 2. Intractable chronic migraine without aura and without status migrainosus - ICD9: 346.71, ICD10: G43.719 - UBRELVY 50 MG TABLET - METOCLOPRAMIDE 10 MG TABLET - KETOROLAC 60 MG/2 ML INTRAMUSCULAR SOLUTION Toradol administered during appt. 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 Sam Osborne APRN.[facility] 10-08-2024 History of Present illness Narrative Chief Complaint Patient presents with: Headache: X 2 days HPI Marianne Saucedo is a 24 year old female who presents here today for Above Complaints.. Patient presents today with headache x2 days. Patient states she had a prior headache for 3 weeks which she took tylenol, ibuprofen, advil and Excedrin and it broke on its own. After two weeks the migraine returned two days ago. Patient states she has not taken anything for her headache. She is having light sensitivity and sound sensitivity but denies aura prior to her migraines, numbness and tingling and weakness. Patient states the pain is either on her left tenriism or in between her eyes. Patient denies nausea and vomiting. Patient denies this being the worst headache she has ever had. Patient denies fever, chills, chest pain and SOB. Past medical history, appointments, medications, allergies reviewed. 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 05/10/2016 Constipation 11/08/2011 depression counseling only NEGATIVE MEDICAL HISTORY normal color vision Pancreatitis with gallbladder issues depression Strep throat recurrent, tonsillectomy age 3 years Previous Surgical History PAST SURGICAL HISTORY Procedure Laterality Date LAPAROSCOPY SURG CHOLECYSTECTOMY 07/21/2014 Cholecystectomy, lap MIRENA IUD 06/25/2023 Placed in office TONSILLECTOMY HX age 3 years Family History FAMILY HISTORY Problem Relation Age of Onset Asthma Mother No Known Problems Father other (heart murmur) Sister other (heart murmur) Brother No Known Problems Brother Cancer Maternal Grandmother Adrenal Hypertension Maternal Grandmother No Known Problems Maternal Grandfather No Known Problems Paternal Grandmother No Known Problems Paternal Grandfather No Known Problems Son No Known Problems Son Patient Allergies ALLERGIES No Known Allergies Current Medications Current Outpatient Medications on File Prior to Visit Medication Sig levonorgestrel (MIRENA) 21 mcg/24 hours (7 yrs) 52 mg IUD 1 Each by INTRAUTERINE route as directed. albuterol HFA (PROVENTIL HFA, VENTOLIN HFA) 90 mcg/actuation inhaler Inhale 2 Puffs as instructed every 4 hours as needed for wheezing/shortness of breath. sertraline (ZOLOFT) 50 mg tablet Take 1 tablet by mouth once daily. No current facility-administered medications on file prior to visit. Social History Social History Tobacco Use Smoking status: Never Smokeless tobacco: Never Tobacco comments: parents smoke Vaping Use Vaping status: Never Used Substance Use Topics Alcohol use: No Drug use: No Review of Symptoms REVIEW OF SYSTEMS GENERAL: No weight loss, malaise or fevers RESPIRATORY: Negative for cough, hemoptysis, wheezing, COPD, dyspnea or shortness of breath CARDIOVASCULAR: Negative for chest pain, leg swelling, hypertension, CHF or palpitations EXAM: BP 104/69 Pulse 80 Wt 98 kg (216 lb 0.8 oz) LMP 05/06/2023 (Exact Date) BMI 38.27 kg/m General Appearance: Well appearing, alert, in no acute distress, well-hydrated, well nourished.. Lungs: Lungs clear to auscultation. No wheezing, rhonchi, rales.. Heart: RRR without murmur, gallop, or rubs. No ectopy. Health Maintenance List Depression Screening Never done Anxiety Screening Never done Influenza Vaccine(1) due on 03/21/2024 Covid-19 Vaccine( season) due on 03/21/2024 Cervical Cancer Screening due on 05/14/2027 DTaP,Tdap,Td Vaccine(10 - Td or Tdap) due on 08/21/2030 Hepatitis B Vaccine Completed HPV Vaccine Completed Hepatitis C Screening Completed HIV Screening Completed ASSESSMENT/PLAN: 1. Iron deficiency anemia, unspecified iron deficiency anemia type - ICD9: 280.9, ICD10: D50.9 (primary diagnosis) - COMPLETE BLOOD COUNT AND DIFFERENTIAL - IRON AND TIBC - FERRITIN 2. Intractable chronic migraine without aura and without status migrainosus - ICD9: 346.71, ICD10: G43.719 - UBRELVY 50 MG TABLET - METOCLOPRAMIDE 10 MG TABLET - KETOROLAC 60 MG/2 ML INTRAMUSCULAR SOLUTION Toradol administered during appt. 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 Sam Osborne APRN.[employer] documented in this encounter [facility] 05-14-2024 Note HNO ID: [id number] Author: DEBO NIELSON APRN.[employer] Service: ? Author Type: Nurse Practitioner Type: Progress Notes Filed: 05/14/2024 08:25 Note Text: Marianne Saucedo is a 23 year old female who presents for problem visit of a possible yeast infection. HPI: Marianne has had vaginal discharge and itching for about 1 week. She notes a vaginal odor as well. She denies any new soaps or detergents. She denies concerns for STIs and declines testing. 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 PAST MEDICAL HISTORY Diagnosis Date Anemia Bronchiolitis as infant resolved Cholestasis of in second trimester 05/10/2016 Constipation 11/08/2011 depression counseling only NEGATIVE MEDICAL HISTORY normal color vision Pancreatitis with gallbladder issues depression Strep throat recurrent, tonsillectomy age 3 years PAST SURGICAL HISTORY Procedure Laterality Date LAPAROSCOPY SURG CHOLECYSTECTOMY 07/21/2014 Cholecystectomy, lap MIRENA IUD 06/25/2023 Placed in office TONSILLECTOMY HX age 3 years FAMILY HISTORY Problem Relation Age of Onset Asthma Mother No Known Problems Father other (heart murmur) Sister other (heart murmur) Brother No Known Problems Brother Cancer Maternal Grandmother Adrenal Hypertension Maternal Grandmother No Known Problems Maternal Grandfather No Known Problems Paternal Grandmother No Known Problems Paternal Grandfather No Known Problems Son No Known Problems Son Social History Tobacco Use Smoking status: Never Smokeless tobacco: Never Tobacco comments: parents smoke Vaping Use Vaping status: Never Used Substance Use Topics Alcohol use: No Drug use: No Current Outpatient Medications Medication Sig levonorgestrel (MIRENA) 21 mcg/24 hours (8 yrs) 52 mg IUD 1 Each by INTRAUTERINE route as directed. albuterol HFA (PROVENTIL HFA, VENTOLIN HFA) 90 mcg/actuation inhaler Inhale 2 Puffs as instructed every 4 hours as needed for wheezing/shortness of breath. fluconazole (DIFLUCAN) 150 mg tablet Take 1 tablet by mouth one time only for 1 dose. clotrimazole-betamethasone (LOTRISONE) cream Apply to affected area two times a day for 7 days. sertraline (ZOLOFT) 50 mg tablet Take 1 tablet by mouth once daily. No current facility-administered medications for this visit. Allergies As of Date: 05/14/2024 (No Known Allergies) Fully Assessed 05/14/2024 REVIEW OF SYSTEMS Abdomen: No bloating, early satiety, indigestion, or increased flatulence. No abdominal pain, nausea, vomiting, diarrhea, or constipation. Bladder: No dysuria, gross hematuria, urinary frequency, urinary urgency, or incontinence. Breast: No breast lumps, nipple d/c, overlying skin changes, redness or skin retraction. Expanded ROS: MATRIX INSPECTOR: + vaginal odor, itching, and discharge Allergies and current medication updated:Yes SENSITIVE EXAM: The sensitive examination was discussed with the Patient or Patient's Authorized Senior Credit Officer. As applicable, any other physician, advance practice provider, medical student, or other health professional student that will be observing or involved in the sensitive examination for educational or training purposes was discussed with the Patient or Authorized Senior Credit Officer. The Patient or Authorized Senior Credit Officer has agreed to proceed with the sensitive examination. (Sensitive examination includes inspection and/or palpation of the breasts, pelvis, prostate and anorectal regions). EXAM: BP 110/60 Wt 218 lb (98.9kg) LMP 05/06/2023 GENERAL: pleasant, female in no apparent distress CHEST: Normal inspiratory effort PELVIC: external genitalia erythematous and irritated, normal Bartholin's glands, urethra, [place]'s glands, no vulvar lesions, no cervical lesions, + friable cervix, good vaginal support, white discharge, normal appearing perineal body and perianal region, IUD strings visible BIMANUAL: uterus normal size, shape and consistency, no adnexal masses, and non-tender NEURO: alert and oriented x3,exam grossly non-focal EXTREMITIES: normal ASSESSMENT/PLAN: 1. Vaginal discharge - ICD9: 623.5, ICD10: N89.8 (primary diagnosis) 2. Vaginal itching - ICD9: 698.1, ICD10: N89.8 3. Vaginal odor - ICD9: 625.8, ICD10: N89.8 - Suspect yeast, cultures sent - Diflucan rx sent - Lotrisone sent to be used externally 4. Screening for cervical cancer - ICD9: V76.2, ICD10: Z12.4 - Pap done RTO for annual. Debo Nielson, TRAFFIC CHIEF.INDUSTRIAL RADIOGRAPHER Medical Decision Making: Problems: Low: Acute, uncomplicated illness or injury Data: Unique test(s) ordered: 3+ Risk: Low: Low risk from testing/treatment Moderate: Drug management Medical Decision Making Level: 4 - Moderate [facility] 05-14-2024 History of Present illness Narrative Marianne Saucedo is a 23 year old female who presents for problem visit of a possible yeast infection. HPI: Marianne has had vaginal discharge and itching for about 1 week. She notes a vaginal odor as well. She denies any new soaps or detergents. She denies concerns for STIs and declines testing. 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 PAST MEDICAL HISTORY Diagnosis Date Anemia Bronchiolitis as resolved Cholestasis of in second trimester 05/10/2016 Constipation 11/08/2011 depression counseling only NEGATIVE MEDICAL HISTORY normal color vision Pancreatitis with gallbladder issues depression Strep throat recurrent, tonsillectomy age 3 years PAST SURGICAL HISTORY Procedure Laterality Date LAPAROSCOPY SURG CHOLECYSTECTOMY 07/21/2014 Cholecystectomy, lap MIRENA IUD 06/25/2023 Placed in office TONSILLECTOMY HX age 3 years FAMILY HISTORY Problem Relation Age of Onset Asthma Mother No Known Problems Father other (heart murmur) Sister other (heart murmur) Brother No Known Problems Brother Cancer Maternal Grandmother Adrenal Hypertension Maternal Grandmother No Known Problems Maternal Grandfather No Known Problems Paternal Grandmother No Known Problems Paternal Grandfather No Known Problems Son No Known Problems Son Social History Tobacco Use Smoking status: Never Smokeless tobacco: Never Tobacco comments: parents smoke Vaping Use Vaping status: Never Used Substance Use Topics Alcohol use: No Drug use: No Current Outpatient Medications Medication Sig levonorgestrel (MIRENA) 21 mcg/24 hours (8 yrs) 52 mg IUD 1 Each by INTRAUTERINE route as directed. albuterol HFA (PROVENTIL HFA, VENTOLIN HFA) 90 mcg/actuation inhaler Inhale 2 Puffs as instructed every 4 hours as needed for wheezing/shortness of breath. fluconazole (DIFLUCAN) 150 mg tablet Take 1 tablet by mouth one time only for 1 dose. clotrimazole-betamethasone (LOTRISONE) cream Apply to affected area two times a day for 7 days. sertraline (ZOLOFT) 50 mg tablet Take 1 tablet by mouth once daily. No current facility-administered medications for this visit. Allergies As of Date: 05/14/2024 (No Known Allergies) Fully Assessed 05/14/2024 REVIEW OF SYSTEMS Abdomen: No bloating, early satiety, indigestion, or increased flatulence. No abdominal pain, nausea, vomiting, diarrhea, or constipation. Bladder: No dysuria, gross hematuria, urinary frequency, urinary urgency, or incontinence. Breast: No breast lumps, nipple d/c, overlying skin changes, redness or skin retraction. Expanded ROS: MATRIX INSPECTOR: + vaginal odor, itching, and discharge Allergies and current medication updated:Yes SENSITIVE EXAM: The sensitive examination was discussed with the Patient or Patient's Authorized Senior Credit Officer. As applicable, any other physician, advance practice provider, medical student, or other health professional student that will be observing or involved in the sensitive examination for educational or training purposes was discussed with the Patient or Authorized Senior Credit Officer. The Patient or Authorized Senior Credit Officer has agreed to proceed with the sensitive examination. (Sensitive examination includes inspection and/or palpation of the breasts, pelvis, prostate and anorectal regions). EXAM: BP 110/60 Wt 218 lb (98.9kg) LMP 05/06/2023 GENERAL: pleasant, female in no apparent distress CHEST: Normal inspiratory effort PELVIC: external genitalia erythematous and irritated, normal Bartholin's glands, urethra, [place]'s glands, no vulvar lesions, no cervical lesions, + friable cervix, good vaginal support, white discharge, normal appearing perineal body and perianal region, IUD strings visible BIMANUAL: uterus normal size, shape and consistency, no adnexal masses, and non-tender NEURO: alert and oriented x3,exam grossly non-focal EXTREMITIES: normal ASSESSMENT/PLAN: 1. Vaginal discharge - ICD9: 623.5, ICD10: N89.8 (primary diagnosis) 2. Vaginal itching - ICD9: 698.1, ICD10: N89.8 3. Vaginal odor - ICD9: 625.8, ICD10: N89.8 - Suspect yeast, cultures sent - Diflucan rx sent - Lotrisone sent to be used externally 4. Screening for cervical cancer - ICD9: V76.2, ICD10: Z12.4 - Pap done RTO for annual. Debo Nielson APRN.INDUSTRIAL RADIOGRAPHER Medical Decision Making: Problems: Low: Acute, uncomplicated illness or injury Data: Unique test(s) ordered: 3+ Risk: Low: Low risk from testing/treatment Moderate: Drug management Medical Decision Making Level: 4 - Moderate documented in this encounter [facility] 02-23-2024 Telephone encounter Note Pt was seen in [facility] ED. Report scanned into pt's chart. Sarah Meeks MA [facility] 02-23-2024 Miscellaneous Notes Pt was seen in [facility] ED. Report scanned into pt's chart. Sarah Meeks MA Pt called and is notified of providers message and instructions. Pt voices understanding. Pt states she will probably go to [facility] ER. I let her know I will let providers office know she they can watch for report. Kandy Vera, IVAN Can you please call the patient and let her know that I would recommend an evaluation in the ER if the rectal bleeding has gotten worse. Thank you. Angy Avila APRN.INDUSTRIAL RADIOGRAPHER So I ve went to the bathroom a few times since I see you and there s still quiet a bit of blood it s almost as much as it would be if I was on my period but in my stool Is there anyway you could do the tests I have 3 kids and I can t go sit in the er for hours Pt reports she noted a large amount of blood in stool & toilet water today with BM. Appt scheduled for 02/18/24 at 7AM with Tamanna. Amy Pickard LPN documented in this encounter [facility] 02-23-2024 Telephone encounter Note Pt called and is notified of providers message and instructions. Pt voices understanding. Pt states she will probably go to [facility] ER. I let her know I will let providers office know she they can watch for report. Kandy Vrea RN [facility] 02-23-2024 Telephone encounter Note Can you please call the patient and let her know that I would recommend an evaluation in the ER if the rectal bleeding has gotten worse. Thank you. Angy Avila APRN.INDUSTRIAL RADIOGRAPHER [facility] Work Phone: 02-23-2024 Telephone encounter Note So I ve went to the bathroom a few times since I see you and there s still quiet a bit of blood it s almost as much as it would be if I was on my period but in my stool Is there anyway you could do the tests I have 3 kids and I can t go sit in the er for hours [facility] 02-21-2024 Telephone encounter Note Patient call in for rectal bleeding which happens every time she is having bowel movement. Per My chart message: So I ve went to the bathroom a few times since I see you and there s still quiet a bit of blood it s almost as much as it would be if I was on my period but in my stool Nurse Triage assessment completed with protocol recommending for disposition of Go to ED now. Care advice reviewed with patient, patient stated understanding. Reason for Disposition [1] MODERATE rectal bleeding (small blood clots, passing blood without stool, or toilet water turns red) AND [2] more than once a day Answer Assessment - Initial Assessment Questions 1. APPEARANCE of BLOOD: Red; It is on surface of stool as well as mixed in with stool 2. AMOUNT: In the toilet every time she has a bowel movement 3. FREQUENCY: Every time she has a bowel movement 4. ONSET: 3-4 days ago 5. DIARRHEA: Denies Diarrhea 6. CONSTIPATION: Denies Constipation; States that stool is in between hard and having diarrhea 7. RECURRENT SYMPTOMS: A little bit but not this much 8. BLOOD THINNERS: Denies 9. OTHER SYMPTOMS: Abdomen pain but states that this happens all the time. 10. : Denies Protocols used: Rectal [id number] [facility] 02-21-2024 Telephone encounter Note See Nurse Triage Encounter. [facility] 02-21-2024 Miscellaneous Notes See Nurse Triage Encounter. documented in this encounter [facility] 02-21-2024 Miscellaneous Notes Patient call in for rectal bleeding which happens every time she is having bowel movement. Per My chart message: So I ve went to the bathroom a few times since I see you and there s still quiet a bit of blood it s almost as much as it would be if I was on my period but in my stool Nurse Triage assessment completed with protocol recommending for disposition of Go to ED now. Care advice reviewed with patient, patient stated understanding. Reason for Disposition [1] MODERATE rectal bleeding (small blood clots, passing blood without stool, or toilet water turns red) AND [2] more than once a day Answer Assessment - Initial Assessment Questions 1. APPEARANCE of BLOOD: Red; It is on surface of stool as well as mixed in with stool 2. AMOUNT: In the toilet every time she has a bowel movement 3. FREQUENCY: Every time she has a bowel movement 4. ONSET: 3-4 days ago 5. DIARRHEA: Denies Diarrhea 6. CONSTIPATION: Denies Constipation; States that stool is in between hard and having diarrhea 7. RECURRENT SYMPTOMS: A little bit but not this much 8. BLOOD THINNERS: Denies 9. OTHER SYMPTOMS: Abdomen pain but states that this happens all the time. 10. : Denies Protocols used: Rectal [id number] documented in this encounter [facility] 02-18-2024 Instructions Angy Avila APRN.CNP - 02/18/2024 7:01 AM EDT Increase water and fiber in the diet. Monitor stool for bleeding If needed may use Miralax 1-2 times per day as needed for constipation Use steroid cream to rash Follow up with any reoccurring symptoms. documented in this encounter [facility] 02-18-2024 History of Present illness Narrative This is a 23 year old female who presents today with: Patient presents with: Acute Visit: Bloody stool HISTORY OF PRESENT ILLNESS: Marianne Saucedo is a 23 year old female. Patient presents with: Acute Visit: Bloody stool Here in the office for blood in the stool. Noticed yesterday after having a BM. 1 episode. Refers she does struggle with constipation. Having BM's daily. Senstive to dairy, may cause her to have a BM. No new onset abdominal pain or dizziness. Refers that she has been managing constipation with water and fiber. Rash on right hand, started about a week ago. Refers she believes she may have gotten poison jimmy. Has been applying asdy-iqf-ipnuift cortisone cream on it without much relief. Seems to be spreading to other fingers. It is itchy. PAST MEDICAL HISTORY: PAST MEDICAL HISTORY Diagnosis Date Anemia Bronchiolitis as infant resolved Cholestasis of in second trimester 05/10/2016 Constipation 11/08/2011 depression counseling only NEGATIVE MEDICAL HISTORY normal color vision Pancreatitis with gallbladder issues depression Strep throat recurrent, tonsillectomy age 3 years PAST SURGICAL HISTORY Procedure Laterality Date LAPAROSCOPY SURG CHOLECYSTECTOMY 07/21/2014 Cholecystectomy, lap MIRENA IUD 06/25/2023 Placed in office TONSILLECTOMY HX age 3 years ALLERGIES Patient has no known allergies. MEDICATIONS Current Outpatient Medications Medication Sig benzonatate (TESSALON PERLES) 100 mg capsule Take 2 capsules by mouth three times a day as needed. docosanol (ABREVA) 10 % crea Apply to affected area five times a day. predniSONE (DELTASONE) 10 mg tablet Take 4 tabs daily for 3 days, then 2 tabs daily for 3 days, then 1 tab daily for 3 days with food. (Patient not taking: Reported on 11/26/2023) levonorgestrel (MIRENA) 21 mcg/24 hours (7 yrs) 52 mg IUD 1 Each by INTRAUTERINE route as directed. triamcinolone acetonide (KENALOG) 0.1 % ointment Apply to affected area twice daily. For 10 days (Patient not taking: Reported on 07/04/2023) naproxen (NAPROSYN) 500 mg tablet Take 1 tablet by mouth twice daily with meals. Take with food. norgestimate 0.25 mg-ethinyl estradiol 35 mcg (SPRINTEC) 0.25-35 mg-mcg per tablet Take 1 tablet by mouth once daily. (Patient not taking: Reported on 06/25/2023) albuterol HFA (PROVENTIL HFA, VENTOLIN HFA) 90 mcg/actuation inhaler Inhale 2 Puffs as instructed every 4 hours as needed for wheezing/shortness of breath. sertraline (ZOLOFT) 50 mg tablet Take 1 tablet by mouth once daily. No current facility-administered medications for this visit. FAMILY HISTORY Problem Relation Age of Onset Asthma Mother No Known Problems Father other (heart murmur) Sister other (heart murmur) Brother No Known Problems Brother Cancer Maternal Grandmother Adrenal Hypertension Maternal Grandmother No Known Problems Maternal Grandfather No Known Problems Paternal Grandmother No Known Problems Paternal Grandfather No Known Problems Son No Known Problems Son Social History Tobacco Use Smoking status: Never Smokeless tobacco: Never Tobacco comments: parents smoke Vaping Use Vaping Use: Never used Substance Use Topics Alcohol use: No Drug use: No REVIEW OF SYSTEMS GENERAL: No weight loss, malaise or fevers/chills HEENT: Negative for frequent or significant headaches, No changes in hearing or vision. NECK: Negative for lumps, goiter, pain and significant neck swelling RESPIRATORY: Negative for cough, hemoptysis, wheezing, dyspnea or shortness of breath CARDIOVASCULAR: Negative for chest pain, leg swelling, orthopnea, or palpitations GI: + Rectal Bleeding : No history of dysuria, frequency or incontinence MUSCULOSKELETAL: Negative for joint pain or swelling. SKIN: + Rash ENDOCRINE: Negative for cold or heat intolerance, polyuria, polydipsia and goiter NEURO: No history of headaches, syncope, paralysis, seizures or tremors MOOD: Negative for depression, anxiety, or suicidal ideation. EXAM: BP 104/72 Pulse 79 Resp 16 Wt 103.4 kg (228 lb) LMP 05/06/2023 (Exact Date) SpO2 97% BMI 40.39 kg/m PHYSICAL EXAM: General Appearance: Well appearing, alert, in no acute distress, well-hydrated, well nourished. Skin: Dry, Erythematic rash noted along the right middle finger, some blisters noted. Head: Normocephalic, no masses, lesions, tenderness or abnormalities. Eyes: Anicteric sclera. Extraocular movements are intact. Lungs: Lungs clear to auscultation. No wheezing, rhonchi, rales. Heart: RRR without murmur, gallop, or rubs. No ectopy. Abdomen: Normal abdominal exam, Abdomen soft, non-tender. Bowel sounds normal. No masses, organomegaly. Deferred rectal exam. Extremities: No deformities, edema, skin discoloration, clubbing or cyanosis. Good capillary refill. Peripheral Pulses: Normal, Capillary refill <2secs, strong peripheral pulses, Pulses palpable. Neurologic: Gait normal. Reflexes normal and symmetric. Sensation grossly intact. ASSESSMENT/PLAN: 1. Rectal bleeding - ICD9: 569.3, ICD10: K62.5 (primary diagnosis) - Rectal bleeding more than likely due to constipation and internal hemorrhoid. Denied wanting rectal exam at this time. - Instructed to monitor symptoms at home. - Increase water and fiber in the diet. Discussed in great detail lifestyle changes at home to help with bowel regiment. 2. Chronic constipation - ICD9: 564.00, ICD10: K59.09 - May use MiraLAX 1-2 times per day as needed. 3. Contact dermatitis, unspecified contact dermatitis type, unspecified trigger - ICD9: 692.9, ICD10: L25.9 - Topical steriod tx with Rx for steriod cream/ointment- see orders - discussed skin care of rash - follow up if symptoms persist or worsen. - TRIAMCINOLONE ACETONIDE 0.5 % TOPICAL CREAM Follow-up as needed. Discussed treatment plan and patient voices understanding. Patient's questions answered appropriately. Medications and potential side effects were discussed and patient voices understanding. Angy Avila APRN.HAVEN This note was partially generated using Badoo voice recognition system. Note was reviewed for accuracy. There may be minor misspellings or grammar miscues with Badoo voice recognition. documented in this encounter [facility] 02-18-2024 Note HNO ID: [id number] Author: ANGY AVILA APRN.CNP Service: ? Author Type: Nurse Practitioner Type: Progress Notes Filed: 02/18/2024 07:18 Note Text: This is a 23 year old female who presents today with: Patient presents with: Acute Visit: Bloody stool HISTORY OF PRESENT ILLNESS: Marianne Saucedo is a 23 year old female. Patient presents with: Acute Visit: Bloody stool Here in the office for blood in the stool. Noticed yesterday after having a BM. 1 episode. Refers she does struggle with constipation. Having BM's daily. Senstive to dairy, may cause her to have a BM. No new onset abdominal pain or dizziness. Refers that she has been managing constipation with water and fiber. Rash on right hand, started about a week ago. Refers she believes she may have gotten poison jimmy. Has been applying qrth-kck-wpkokuv cortisone cream on it without much relief. Seems to be spreading to other fingers. It is itchy. PAST MEDICAL HISTORY: PAST MEDICAL HISTORY Diagnosis Date Anemia Bronchiolitis as infant resolved Cholestasis of in second trimester 05/10/2016 Constipation 11/08/2011 depression counseling only NEGATIVE MEDICAL HISTORY normal color vision Pancreatitis with gallbladder issues depression Strep throat recurrent, tonsillectomy age 3 years PAST SURGICAL HISTORY Procedure Laterality Date LAPAROSCOPY SURG CHOLECYSTECTOMY 07/21/2014 Cholecystectomy, lap MIRENA IUD 06/25/2023 Placed in office TONSILLECTOMY HX age 3 years ALLERGIES Patient has no known allergies. MEDICATIONS Current Outpatient Medications Medication Sig benzonatate (TESSALON PERLES) 100 mg capsule Take 2 capsules by mouth three times a day as needed. docosanol (ABREVA) 10 % crea Apply to affected area five times a day. predniSONE (DELTASONE) 10 mg tablet Take 4 tabs daily for 3 days, then 2 tabs daily for 3 days, then 1 tab daily for 3 days with food. (Patient not taking: Reported on 11/26/2023) levonorgestrel (MIRENA) 21 mcg/24 hours (7 yrs) 52 mg IUD 1 Each by INTRAUTERINE route as directed. triamcinolone acetonide (KENALOG) 0.1 % ointment Apply to affected area twice daily. For 10 days (Patient not taking: Reported on 07/04/2023) naproxen (NAPROSYN) 500 mg tablet Take 1 tablet by mouth twice daily with meals. Take with food. norgestimate 0.25 mg-ethinyl estradiol 35 mcg (SPRINTEC) 0.25-35 mg-mcg per tablet Take 1 tablet by mouth once daily. (Patient not taking: Reported on 06/25/2023) albuterol HFA (PROVENTIL HFA, VENTOLIN HFA) 90 mcg/actuation inhaler Inhale 2 Puffs as instructed every 4 hours as needed for wheezing/shortness of breath. sertraline (ZOLOFT) 50 mg tablet Take 1 tablet by mouth once daily. No current facility-administered medications for this visit. FAMILY HISTORY Problem Relation Age of Onset Asthma Mother No Known Problems Father other (heart murmur) Sister other (heart murmur) Brother No Known Problems Brother Cancer Maternal Grandmother Adrenal Hypertension Maternal Grandmother No Known Problems Maternal Grandfather No Known Problems Paternal Grandmother No Known Problems Paternal Grandfather No Known Problems Son No Known Problems Son Social History Tobacco Use Smoking status: Never Smokeless tobacco: Never Tobacco comments: parents smoke Vaping Use Vaping Use: Never used Substance Use Topics Alcohol use: No Drug use: No REVIEW OF SYSTEMS GENERAL: No weight loss, malaise or fevers/chills HEENT: Negative for frequent or significant headaches, No changes in hearing or vision. NECK: Negative for lumps, goiter, pain and significant neck swelling RESPIRATORY: Negative for cough, hemoptysis, wheezing, dyspnea or shortness of breath CARDIOVASCULAR: Negative for chest pain, leg swelling, orthopnea, or palpitations GI: + Rectal Bleeding : No history of dysuria, frequency or incontinence MUSCULOSKELETAL: Negative for joint pain or swelling. SKIN: + Rash ENDOCRINE: Negative for cold or heat intolerance, polyuria, polydipsia and goiter NEURO: No history of headaches, syncope, paralysis, seizures or tremors MOOD: Negative for depression, anxiety, or suicidal ideation. EXAM: BP 104/72 Pulse 79 Resp 16 Wt 103.4 kg (228 lb) LMP 05/06/2023 (Exact Date) SpO2 97% BMI 40.39 kg/m? PHYSICAL EXAM: General Appearance: Well appearing, alert, in no acute distress, well-hydrated, well nourished. Skin: Dry, Erythematic rash noted along the right middle finger, some blisters noted. Head: Normocephalic, no masses, lesions, tenderness or abnormalities. Eyes: Anicteric sclera. Extraocular movements are intact. Lungs: Lungs clear to auscultation. No wheezing, rhonchi, rales. Heart: RRR without murmur, gallop, or rubs. No ectopy. Abdomen: Normal abdominal exam, Abdomen soft, non-tender. Bowel sounds normal. No masses, organomegaly. Deferred rectal exam. Extremities: No deformities, edema (more content not included)... [facility] 02-17-2024 Telephone encounter Note Pt reports she noted a large amount of blood in stool & toilet water today with BM. Appt scheduled for 02/18/24 at 7AM with ATannhof. Amy Pickard LPN [facility] 02-17-2024 Telephone encounter Note Pt notified she needs to make an appointment. Dot Russo MA' [facility] 02-17-2024 Miscellaneous Notes Pt notified she needs to make an appointment. Dot Russo MA' documented in this encounter [facility] 11-26-2023 History of Present illness Narrative This note was created using [employer]. Subjective Marianne Saucedo is a 23 year old female. HPI Patient presents with cough and chest congestion for 3 days. She was seen in the ER on 5 6 until 5 7 overnight. She had negative COVID flu RSV test and also had a negative chest x-ray. She was told at that time she had bronchitis. She states she did have a fever that day. None since then. She states she is still coughing and her chest feels tight. They did prescribe her an albuterol inhaler. She is not a smoker. No history of asthma. No vomiting or diarrhea. Denies significant nasal congestion. She states her son had croup a few days before she got sick. Review of Systems Constitutional: Negative. HENT: Negative for congestion, ear pain, rhinorrhea and sore throat. Respiratory: Positive for cough, chest tightness, shortness of breath and wheezing. Cardiovascular: Negative. Gastrointestinal: Negative. Genitourinary: Negative. Musculoskeletal: Negative. All other systems reviewed and are negative. PAST MEDICAL HISTORY Diagnosis Date Anemia Bronchiolitis as resolved Cholestasis of in second trimester 05/10/2016 Constipation 11/08/2011 depression counseling only NEGATIVE MEDICAL HISTORY normal color vision Pancreatitis with gallbladder issues depression Strep throat recurrent, tonsillectomy age 3 years Current Outpatient Medications Medication Sig Dispense Refill docosanol (ABREVA) 10 % crea Apply to affected area five times a day. 2 g 0 levonorgestrel (MIRENA) 21 mcg/24 hours (8 yrs) 52 mg IUD 1 Each by INTRAUTERINE route as directed. 1 Each 0 albuterol HFA (PROVENTIL HFA, VENTOLIN HFA) 90 mcg/actuation inhaler Inhale 2 Puffs as instructed every 4 hours as needed for wheezing/shortness of breath. 1 Inhaler 0 predniSONE (DELTASONE) 20 mg tablet Take 2 tablets by mouth once daily for 5 days. 10 tablet 0 benzonatate (TESSALON PERLES) 100 mg capsule Take 2 capsules by mouth three times a day as needed. 30 capsule 0 predniSONE (DELTASONE) 10 mg tablet Take 4 tabs daily for 3 days, then 2 tabs daily for 3 days, then 1 tab daily for 3 days with food. (Patient not taking: Reported on 11/26/2023) 21 tablet 0 triamcinolone acetonide (KENALOG) 0.1 % ointment Apply to affected area twice daily. For 10 days (Patient not taking: Reported on 07/04/2023) 30 g 0 naproxen (NAPROSYN) 500 mg tablet Take 1 tablet by mouth twice daily with meals. Take with food. 20 tablet 0 norgestimate 0.25 mg-ethinyl estradiol 35 mcg (SPRINTEC) 0.25-35 mg-mcg per tablet Take 1 tablet by mouth once daily. (Patient not taking: Reported on 06/25/2023) 28 tablet 14 sertraline (ZOLOFT) 50 mg tablet Take 1 tablet by mouth once daily. 30 tablet 5 No current facility-administered medications for this visit. PAST SURGICAL HISTORY Procedure Laterality Date LAPAROSCOPY SURG CHOLECYSTECTOMY 07/21/2014 Cholecystectomy, lap MIRENA IUD 06/25/2023 Placed in office TONSILLECTOMY HX age 3 years FAMILY HISTORY Problem Relation Age of Onset Asthma Mother No Known Problems Father other (heart murmur) Sister other (heart murmur) Brother No Known Problems Brother Cancer Maternal Grandmother Adrenal Hypertension Maternal Grandmother No Known Problems Maternal Grandfather No Known Problems Paternal Grandmother No Known Problems Paternal Grandfather No Known Problems Son No Known Problems Son Social History Tobacco Use Smoking status: Never Smokeless tobacco: Never Tobacco comments: parents smoke Vaping Use Vaping Use: Never used Substance Use Topics Alcohol use: No Drug use: No Objective BP 122/72 Pulse 84 Temp 37.1 C (98.7 F) (Tympanic) Resp 18 Wt 102.6 kg (226 lb 3.1 oz) LMP 05/06/2023 (Exact Date) SpO2 98% BMI 40.07 kg/m Physical Exam Vitals reviewed. Constitutional: Appearance: Normal appearance. HENT: Head: Normocephalic and atraumatic. Right Ear: Tympanic membrane, ear canal and external ear normal. Left Ear: Tympanic membrane, ear canal and external ear normal. Nose: Nose normal. Mouth/Throat: Mouth: Mucous membranes are moist. Pharynx: Oropharynx is clear. Cardiovascular: Rate and Rhythm: Normal rate and regular rhythm. Heart sounds: Normal heart sounds. Pulmonary: Effort: Pulmonary effort is normal. Breath sounds: Normal breath sounds. Musculoskeletal: Cervical back: Neck supple. Skin: General: Skin is warm and dry. Neurological: Mental Status: She is alert. Assessment and Plan ASSESSMENT/PLAN: 1. Bronchitis - ICD9: 490, ICD10: J40 Patient had a chest x-ray day and a half ago which she states was normal. She has not had a fever since then. Lungs are clear. She states she has been wheezing however off and on. I will add prednisone and Tessalon. Discussed the course of bronchitis and that she could cough for a few weeks with this. If she develops a fever or gets significantly worse to be seen again. Patient agreeable. Annika Velazquez PA-C documented in this encounter [facility] 07-05-2023 Miscellaneous Notes Patient notified. Verbalized understanding. 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 She may continue abreva, but I recommend stopping prednisone. documented in this encounter [facility] 07-04-2023 Instructions Katia Brower APRN.CNP - 07/04/2023 1:17 PM EST An appointment was made for you @ [facility] August 08, 2022 1:30 PM Please bring your insurance card and ID documented in this encounter [facility] 07-04-2023 History of Present illness Narrative This note was created using [email or web address]. Subjective Marianne Saucedo is a 23 year old female. 23 year old female with PMH presents for lip complaints. Acute onset last night Lower lip +painful +fluid filled Denies trauma or injury Recurrent States she has been getting them since she was 14 Last episode was this past August. She endorses that she was provided Valtrex But it made it worse The history is provided by the patient. No heat and frost insulator was used. Mouth/Lip Problem This is a recurrent problem. The current episode started yesterday. The problem occurs constantly. The problem has been unchanged. Pertinent negatives include no abdominal pain, anorexia, arthralgias, change in bowel habit, chest pain, chills, congestion, coughing, diaphoresis, fatigue, fever, headaches, joint swelling, myalgias, nausea, neck pain, numbness, rash, sore throat, swollen glands, urinary symptoms, vertigo, visual change, vomiting or weakness. Nothing aggravates the symptoms. She has tried nothing for the symptoms. The treatment provided no relief. PAST MEDICAL HISTORY Diagnosis Date Anemia Bronchiolitis as infant resolved Cholestasis of in second trimester 05/10/2016 Constipation 11/08/2011 depression counseling only NEGATIVE MEDICAL HISTORY normal color vision Pancreatitis with gallbladder issues depression Strep throat recurrent, tonsillectomy age 3 years PAST SURGICAL HISTORY Procedure Laterality Date LAPAROSCOPY SURG CHOLECYSTECTOMY 07/21/2014 Cholecystectomy, lap MIRENA IUD 06/25/2023 Placed in office TONSILLECTOMY HX age 3 years ALLERGIES Patient has no known allergies. MEDICATIONS docosanol (ABREVA) 10 % crea Apply to affected area five times a day. predniSONE (DELTASONE) 10 mg tablet Take 4 tabs daily for 3 days, then 2 tabs daily for 3 days, then 1 tab daily for 3 days with food. levonorgestrel (MIRENA) 21 mcg/24 hours (8 yrs) 52 mg IUD 1 Each by INTRAUTERINE route as directed. triamcinolone acetonide (KENALOG) 0.1 % ointment Apply to affected area twice daily. For 10 days (Patient not taking: Reported on 07/04/2023) naproxen (NAPROSYN) 500 mg tablet Take 1 tablet by mouth twice daily with meals. Take with food. norgestimate 0.25 mg-ethinyl estradiol 35 mcg (SPRINTEC) 0.25-35 mg-mcg per tablet Take 1 tablet by mouth once daily. (Patient not taking: Reported on 06/25/2023) albuterol HFA (PROVENTIL HFA, VENTOLIN HFA) 90 mcg/actuation inhaler Inhale 2 Puffs as instructed every 4 hours as needed for wheezing/shortness of breath. sertraline (ZOLOFT) 50 mg tablet Take 1 tablet by mouth once daily. FAMILY HISTORY Problem Relation Age of Onset Asthma Mother No Known Problems Father other (heart murmur) Sister other (heart murmur) Brother No Known Problems Brother Cancer Maternal Grandmother Adrenal Hypertension Maternal Grandmother No Known Problems Maternal Grandfather No Known Problems Paternal Grandmother No Known Problems Paternal Grandfather No Known Problems Son No Known Problems Son Social History Tobacco Use Smoking status: Never Smokeless tobacco: Never Tobacco comments: parents smoke Vaping Use Vaping Use: Never used Substance Use Topics Alcohol use: No Drug use: No Review of Systems Constitutional: Negative for chills, diaphoresis, fatigue and fever. HENT: Negative for congestion and sore throat. Eyes: Negative for pain, discharge and itching. Respiratory: Negative for apnea, cough, choking and chest tightness. Cardiovascular: Negative for chest pain, palpitations and leg swelling. Gastrointestinal: Negative for abdominal pain, anorexia, change in bowel habit, nausea and vomiting. Musculoskeletal: Negative for arthralgias, joint swelling, myalgias and neck pain. Skin: Negative for color change, pallor and rash. Allergic/Immunologic: Negative for environmental allergies, food allergies and immunocompromised state. Neurological: Negative for dizziness, vertigo, facial asymmetry, weakness, numbness and headaches. Hematological: Negative for adenopathy. Does not bruise/bleed easily. Psychiatric/Behavioral: Negative for agitation and behavioral problems. Objective BP 132/89 Pulse 74 Temp 36.9 C (98.5 F) Resp 18 Wt 103 kg (227 lb) LMP 05/06/2023 (Exact Date) SpO2 97% BMI 40.21 kg/m Physical Exam Vitals and nursing note reviewed. Constitutional: General: She is not in acute distress. Appearance: Normal appearance. She is normal weight. She is not ill-appearing, toxic-appearing or diaphoretic. HENT: Head: Normocephalic and atraumatic. Right Ear: Ear canal and external ear normal. Left Ear: Ear canal and external ear normal. Nose: Nose normal. No congestion or rhinorrhea. Mouth/Throat: Mouth: Mucous membranes are moist. Pharynx: Posterior oropharyngeal erythema present. No oropharyngeal exudate. Comments: Right inner lower lip With large herpetic blister like Tender. Inner oral mucosa with no lesions. Eyes: General: Right eye: No discharge. Left eye: No discharge. Extraocular Movements: Extraocular movements intact. Conjunctiva/sclera: Conjunctivae normal. Pupils: Pupils are equal, round, and reactive to light. Cardiovascular: Rate and Rhythm: Normal rate and regular rhythm. Pulses: Normal pulses. Heart sounds: Normal heart sounds. No murmur heard. No friction rub. Pulmonary: Effort: Pulmonary effort is normal. No respiratory distress. Breath sounds: Normal breath sounds. No stridor. No wheezing, rhonchi or rales. Chest: Chest wall: No tenderness. Abdominal: General: Abdomen is flat. There is no distension. Palpations: Abdomen is soft. There is no mass. Tenderness: There is no abdominal tenderness. There is no right CVA tenderness, left CVA tenderness, guarding or rebound. Hernia: No hernia is present. Musculoskeletal: General: No swelling, tenderness, deformity or signs of injury. Normal range of motion. Cervical back: Normal range of motion and neck supple. No rigidity. Right lower leg: No edema. Left lower leg: No edema. Lymphadenopathy: Cervical: No cervical adenopathy. Skin: General: Skin is warm and dry. Capillary Refill: Capillary refill takes less than 2 seconds. Coloration: Skin is not jaundiced or pale. Findings: No bruising, erythema, lesion or rash. Neurological: General: No focal deficit present. Mental Status: She is alert and oriented to person, place, and time. Cranial Nerves: No cranial nerve deficit. Sensory: No sensory deficit. Motor: No weakness. Coordination: Coordination normal. Gait: Gait normal. Psychiatric: Mood and Affect: Mood normal. Behavior: Behavior normal. Thought Content: Thought content normal. Judgment: Judgment normal. Assessment and Plan ASSESSMENT/PLAN: 1. Blister of lip - ICD9: 910.2, ICD10: S00.521A X 1 day No red flags Truly looks herpetic, however, she states that the valtrex worsened sx last eruption, back in August Will obtain swab Attempted to call [employer] No openings until July Appt made for patient 08/08/22 @ 1330 with [facility] Prednisone RX Abreva Katia Brower APRN.INDUSTRIAL RADIOGRAPHER documented in this encounter [facility] 06-25-2023 Instructions Kandy Paez MA - 06/25/2023 1:41 PM EST POST IUD INSTRUCTIONS You may have irregular bleeding during the first 3 months of use. You may have mild-severe cramping for the next 48 hours. You may use over the counter medication (Motrin, Tylenol) as needed. Your IUD must be removed or replaced based on the following table: IUD Type Removed or replaced within: Renee 3 years Kyleena 5 years Mirena 8 years Liletta 8 years Paragard 10 years Call the office for signs/symptoms of infection such as severe cramping, fever, or unusual bleeding. Check for string placement as instructed by your doctor. If you have any additional questions, please contact the office. documented in this encounter [facility] 06-25-2023 History of Present illness Narrative Nut Roaster Helper offered: Patient declines. Lopes presents today for IUD insertion for contraception. Patient's last menstrual period was 05/06/2023 (exact date). GC/chlamydia: Negative on test: negative Side effects including irregular bleeding were discussed with the patient. The patient understands that it should be removed in 8 years or sooner if the patient desires a . IUD source: office provided IUD lot #: [id number] Exp date: 06/2025 UNIVERSAL PROTOCOL / SAFETY CHECKLIST Procedure to be Performed: Mirena IUD Insertion Sign In: A Moment of CARE was completed. Personnel directly involved with the procedure wore the appropriate PPE (Personal Protective Equipment). Patient/Surrogate Stated/Verified: PATIENT VERIFIED(optional for EMERGENT procedures): Patient name, Date of , Relevant allergies, and The intended procedure Time Out Communication: Intended patient and procedure match the source documents. Consent documented and matches the intended procedure. Sign Out: SIGN OUT (optional for EMERGENT procedures): No specimen collected. The cervix was prepped with betadine. The uterus sounded to 8 cm and the uterus is Midposition.. Using sterile technique, the Mirena IUD was inserted without difficulty and the string was cut to 2cm from the external os of the cervix. Patient tolerated procedure well. PLAN: Patient was advised to observe for signs and symptoms of infection including but not limited to fever, malodorous vaginal discharge and/or pain. The patient was told to check the string monthly for accurate placement. Bleeding expectations were reviewed. Follow up after next menses for string check. Laura Rea APRN.CNM documented in this encounter [facility] 06-05-2023 History of Present illness Narrative CONTRACEPTION Marianne Saucedo is a 22 year old who presents today for contraception counseling. Was taking OCP but stopped due to forgetting pills at times. She is interested in placement of Mirena IUD. Patient's last menstrual period was 05/06/2023 (exact date).. HPI: Dysmenorrhea Yes Heavy menses Yes Irregular menses Yes SUBJECTIVE Sexually active: Yes Smoking No Last PAP 01/11/2021 Method of control: none Methods tried previously: oral contraceptives unsatisfactory and IUD satisfactory Patient currently interested in: Mirena IUD Interested in in the next 3 years? No Date of last test: Not applicable Date of last STD testing? N/a Relevant Past Medical History: No relevant past medical history OB History T3 L3 SAB0 IAB0 Ectopic0 Multiple0 Live Births3 PAST MEDICAL HISTORY Diagnosis Date Anemia Bronchiolitis as infant resolved Cholestasis of in second trimester 05/10/2016 Constipation 11/08/2011 depression counseling only NEGATIVE MEDICAL HISTORY normal color vision Pancreatitis with gallbladder issues depression Strep throat recurrent, tonsillectomy age 3 years PAST SURGICAL HISTORY Procedure Laterality Date LAPAROSCOPY SURG CHOLECYSTECTOMY 2015 Cholecystectomy, lap TONSILLECTOMY HX age 3 years FAMILY HISTORY Problem Relation Age of Onset Asthma Mother No Known Problems Father other (heart murmur) Sister other (heart murmur) Brother No Known Problems Brother Cancer Maternal Grandmother Adrenal Hypertension Maternal Grandmother No Known Problems Maternal Grandfather No Known Problems Paternal Grandmother No Known Problems Paternal Grandfather No Known Problems Son No Known Problems Son SOCIAL HISTORY Social History Tobacco Use Smoking status: Never Smokeless tobacco: Never Tobacco comments: parents smoke Vaping Use Vaping Use: Never used Substance Use Topics Alcohol use: No Drug use: No PAST SURGICAL HISTORY Procedure Laterality Date LAPAROSCOPY SURG CHOLECYSTECTOMY 2015 Cholecystectomy, lap TONSILLECTOMY HX age 3 years Current Outpatient Medications Medication Sig triamcinolone acetonide (KENALOG) 0.1 % ointment Apply to affected area twice daily. For 10 days naproxen (NAPROSYN) 500 mg tablet Take 1 tablet by mouth twice daily with meals. Take with food. albuterol HFA (PROVENTIL HFA, VENTOLIN HFA) 90 mcg/actuation inhaler Inhale 2 Puffs as instructed every 4 hours as needed for wheezing/shortness of breath. sertraline (ZOLOFT) 50 mg tablet Take 1 tablet by mouth once daily. norgestimate 0.25 mg-ethinyl estradiol 35 mcg (SPRINTEC) 0.25-35 mg-mcg per tablet Take 1 tablet by mouth once daily. (Patient not taking: Reported on 06/05/2023) No current facility-administered medications for this visit. Allergies As of Date: 06/05/2023 (No Known Allergies) Fully Assessed 06/05/2023 OBJECTIVE: General Appearance: Well appearing, alert, in no acute distress, well-hydrated, well nourished. Skin: Color normal, Vascularity normal, No evidence of bleeding or bruising Neck: Supple, no adenopathy; thyroid symmetric, normal size, no bruits ASSESSMENT/PLAN: 1. Encounter for counseling regarding contraception - ICD9: V25.09, ICD10: Z30.09 (primary diagnosis) - R/B/A to Mirena IUD reviewed and questions answered. - Order placed for Mirena IUD - RTO - 2 weeks for insertions Laura Rea APRN.CNM documented in this encounter [facility] 02-06-2023 Miscellaneous Notes Pt scheduled tomorrow at 8:20 AM with Marcelo Barraza. Notified via [employer]. Dot Russo Ma documented in this encounter [facility] 11-01-2022 Miscellaneous Notes Please see pt's vaginal culture swab results and advise. Yolanda Engle LPN' documented in this encounter [facility] 10-31-2022 Instructions Fiordaliza Pereira MD - 10/31/2022 2:10 PM EDT Minimizing irritation of the vulva (area around the vagina) Wear white cotton underwear. Avoid synthetic fabrics and tight clothing. Sleep wearing shorts or pajama bottoms without underwear. Shower as soon as possible after exercise. Avoid clothing detergents and soaps with perfumes or dyes. Use warm (not hot) water to wash the vulva and if you use soap use a product designed for sensitive skin (like Dove or Cetaphil). Do not douche or use creams/powders in the vulvar area unless instructed by your physician. If you must douche, use only plain warm water. Make sure the vulva is dry before dressing by patting dry with a towel. Avoid vigorous rubbing with the towel. You may want to use the blow dryer (on the cool setting only!) on the vulva. The most important way to let your body heal is by avoiding scratching. Many patients find it difficult to avoid scratching at night when they are most aware of the itchiness. You can try taking Benadryl just before bedtime. Some women find it helpful to wear cotton gloves to bed to avoid scratching at night. documented in this encounter [facility] 10-31-2022 Miscellaneous Notes Addended by: FIORDALIZA PEREIRA on: 10/31/2022 02:10 PM Modules accepted: Orders documented in this encounter [facility] 10-31-2022 History of Present illness Narrative Nut Roaster Helper offered: Patient declines. Marianne is a 22 year old who presents for an annual gynecologic exam. She reports some vulvar & vaginal itching. Menses: cycles every 28 days and 4 days of flow. Contraception: combined hormonal contraceptives HPV vaccine: Yes Last Pap: 01/11/2021 normal HPV: N/A History of abnormal pap: No Last mammogram: never OB History T3 L3 SAB0 IAB0 Ectopic0 Multiple0 Live Births3 [employer] History LMP: 09/18/2021, Having periods Age at Menarche: Age at First : Age at Menopause: [employer] History Comments: Sexual Activity: Never; Male Contraception: Pill PAST MEDICAL HISTORY Diagnosis Date Anemia Bronchiolitis as infant resolved Cholestasis of in second trimester 05/10/2016 Constipation 11/08/2011 depression counseling only NEGATIVE MEDICAL HISTORY normal color vision Pancreatitis with gallbladder issues depression Strep throat recurrent, tonsillectomy age 3 years PAST SURGICAL HISTORY Procedure Laterality Date LAPAROSCOPY SURG CHOLECYSTECTOMY 2015 Cholecystectomy, lap TONSILLECTOMY HX age 3 years FAMILY HISTORY Problem Relation Age of Onset Asthma Mother No Known Problems Father other (heart murmur) Sister other (heart murmur) Brother No Known Problems Brother Cancer Maternal Grandmother Adrenal Hypertension Maternal Grandmother No Known Problems Maternal Grandfather No Known Problems Paternal Grandmother No Known Problems Paternal Grandfather No Known Problems Son No Known Problems Son SOCIAL HISTORY Social History Tobacco Use Smoking status: Never Smokeless tobacco: Never Tobacco comments: parents smoke Vaping Use Vaping Use: Never used Substance Use Topics Alcohol use: No Drug use: No REVIEW OF SYSTEMS Abdomen: No abdominal pain, nausea, vomiting, diarrhea, or constipation. No bloating, early satiety, indigestion, or increased flatulence. Bladder: No dysuria, gross hematuria, urinary frequency, urinary urgency, or incontinence. Breast: No breast lumps, nipple d/c, overlying skin changes, redness or skin retraction. Allergies and current medication updated:Yes EXAM: LMP 09/18/2021 GENERAL: pleasant, female in no apparent distress BREAST: soft, non-tender, symmetric, no dominant mass, normal nipple-areolar complex, no lymphadenopathy, and no nipple discharge CHEST: Normal inspiratory effort ABDOMEN: soft, non-tender, and no masses PELVIC: external genitalia normal other than scant erythema inferior vulva, normal Bartholin's glands, urethra, [place]'s glands, no vulvar lesions, no cervical lesions, good vaginal support, discharge present, normal appearing perineal body and perianal region BIMANUAL: uterus normal size, shape and consistency, no adnexal masses, and non-tender RECTOVAGINAL: deferred. NEURO: alert and oriented x3,exam grossly non-focal EXTREMITIES: normal ASSESSMENT/PLAN: 1) Health maintenance: Pap up to date. Nutrition, exercise and routine health maintenance exams reviewed. HPV vaccine: completed series 2) Contraception: combined hormonal contraceptives. Contraceptive options reviewed and information provided. 3) STD screening: Accepted STD check for Gonorrhea and Chlamydia. Vaginitis swab for vaginal itching & odor. 4) Follow up one year or sooner as needed 5) Vulvar dermatitis - advised on perineal hygiene & kenalog ointment Fiordaliza Pereira MD documented in this encounter [facility] 10-15-2022 Miscellaneous Notes [employer] message sent to patient [place] [facility] Please let patient know her xray is negative. documented in this encounter [facility] 10-10-2022 History of Present illness Narrative Radiology Service Progress Note PATIENT NAME: Marianne Saucedo DATE OF SERVICE: October 10, 2022 TIME: 2:55 PM PATIENT IDENTITY VERIFICATION COMPLETED USING TWO (2) IDENTIFIERS: Name and Date of confirmed by patient verbally. FALL SCREENING: Has the patient had 2 falls in the last year or 1 fall with injury or currently using an Ambulatory Assistive Device (Walker, Cane, Wheelchair, Crutches, etc.)? No PATIENT GENDER DATA: Female. status: : No status: NO. PATIENT RELEVANT IMPLANT DATA REVIEWED: Yes RADIOLOGY DEPARTMENT: General X-ray: Exam(s) Completed: Upper Extremity X-Ray(s): Wrist, right PERIPHERAL IV DATA: Not applicable SIGNED BY: RT Renato(R) October 10, 2022 2:55 PM documented in this encounter [facility] 10-10-2022 Instructions Sam Osborne APRN.CNP - 10/10/2022 2:49 PM EDT Complete xray Apply ice as needed Start naproxen with food Follow up in 7-10 days if no improvement. documented in this encounter [facility] 10-10-2022 History of Present illness Narrative Chief Complaint Patient presents with: Wrist Pain HPI Marianne Saucedo is a 22 year old female who presents here today for Above Complaints.. Patient presents for right wrist pain. Patient states for the past 3 days she has been moving a lot of stuff in her apartment and now has pain with intermittent shooting pains up to her elbow. Patient reports pain with flexion and extension as well as pain with bending fingers. Past medical history, appointments, medications, allergies reviewed. Previous Medical History PAST MEDICAL HISTORY Diagnosis Date Anemia Bronchiolitis as resolved Cholestasis of in second trimester 05/10/2016 Constipation 11/08/2011 depression counseling only NEGATIVE MEDICAL HISTORY normal color vision Pancreatitis with gallbladder issues depression Strep throat recurrent, tonsillectomy age 3 years Previous Surgical History PAST SURGICAL HISTORY Procedure Laterality Date LAPAROSCOPY SURG CHOLECYSTECTOMY 2014 Cholecystectomy, lap TONSILLECTOMY HX age 3 years Family History FAMILY HISTORY Problem Relation Age of Onset Asthma Mother No Known Problems Father other (heart murmur) Sister other (heart murmur) Brother No Known Problems Brother Cancer Maternal Grandmother Adrenal Hypertension Maternal Grandmother No Known Problems Maternal Grandfather No Known Problems Paternal Grandmother No Known Problems Paternal Grandfather No Known Problems Son No Known Problems Son Patient Allergies ALLERGIES No Known Allergies Current Medications Current Outpatient Medications on File Prior to Visit Medication Sig valACYclovir (VALTREX) 1 gram Take 1 tablet by mouth once daily. As needed for outbreak of cold sores albuterol HFA (PROVENTIL HFA, VENTOLIN HFA) 90 mcg/actuation inhaler Inhale 2 Puffs as instructed every 4 hours as needed for wheezing/shortness of breath. sertraline (ZOLOFT) 50 mg tablet Take 1 tablet by mouth once daily. norgestimate 0.25 mg-ethinyl estradiol 35 mcg (SPRINTEC) 0.25-35 mg-mcg per tablet Take 1 tablet by mouth once daily. No current facility-administered medications on file prior to visit. Social History Social History Tobacco Use Smoking status: Never Smokeless tobacco: Never Tobacco comments: parents smoke Vaping Use Vaping Use: Never used Substance Use Topics Alcohol use: No Drug use: No Review of Symptoms REVIEW OF SYSTEMS SEE HPI EXAM: LMP 09/18/2021 General Appearance: Well appearing, alert, in no acute distress, well-hydrated, well nourished.. Extremities: Positive findings: joint location: on right wrist pain, swelling, painful movement, loss of ROM, tendonitis, and numbness. Health Maintenance List MENINGOCOCCAL B: Consider based on risk(1 of 2 - Risk Bexsero 2-dose series) Never done GC (GONORRHEA) SCREENING (18-24) due on 05/12/2021 CHLAMYDIA SCREENING (18-24) due on 05/12/2021 INFLUENZA(1) due on 03/21/2022 PAP TESTING due on 01/06/2024 DTAP,TDAP,TD(10 - Td or Tdap) due on 08/21/2030 HEPATITIS B Completed HPV VACCINE Completed DEPRESSION ASSESSMENT Completed HEPATITIS C SCREENING Completed HIV SCREENING Completed COVID-19 VACCINE Completed ASSESSMENT/PLAN: 1. Right wrist pain - ICD9: 719.43, ICD10: M25.531 - XR WRIST GENERAL 3V PA/LAT/OBL RIGHT - NAPROXEN 500 MG TABLET -Encourage use of ice for pain and swelling. Discussed with patient likely tendonitis/overuse injury and that bracing may be helpful. Patient verbalized understanding and will picking crew supervisor wrist brace at pharmacy. Patient to follow up if no improvement in 7-10 days. Sam Osborne APRN.HAVEN documented in this encounter [facility] 10-10-2022 Miscellaneous Notes Pt wrote in saying she was unable to make appt. She was rescheduled to see Sam Osborne today at 2:20 pm. Sarah Meeks Ma Pt accepted same day visit with AT at 1:40 pm. Sarah Meeks Ma Offered 11:40 am with PCP on Wednesday 10/11. Sarah Meeks Ma Message sent to pt notifying her of needing an appt to discuss. Sarah Meeks Ma documented in this encounter [facility] 10-02-2022 Miscellaneous Notes Just sent to pharmacy 10/01/22 Nena Monroy MA documented in this encounter [facility] 10-01-2022 Miscellaneous Notes See pt message. Advise if she should use the refills or take daily medication. Sarah Meeks Ma documented in this encounter [facility] 09-10-2022 History of Present illness Narrative Chief Complaint Patient presents with: Mouth Sores HPI: This Team Access Model visit is a virtual/phone encounter. It required patient-provider interaction for the medical decision making as documented below. Patient was offered a virtual/telemedicine appointment in lieu of an office visit due to recommendations to reduce patient exposure to COVID-19. Patient is aware of limitations of performing the visit without a face to face visit in the office setting and agrees. Pt states that ever since having her gallbladder removed at age 14 she has been getting blisters on her lips. The blisters randomly appear inside and outside of mouth, she states they hurt and itch. Takes about 2-3 weeks to go away. The lips are very swollen and painful to talk, eat, drink. She was using some OTC cold sore medication that was helping but recently seem to be making them worse. She feels like they look like cold sores but don't feel like cold sores. When she pops the blisters there is yellow liquid that comes out, the blisters are yellow in color. She thought that the blisters were flaring up whenever she was sick or her pancreas was acting up but has been getting them now randomly every 2-3 months or sooner. Past medical history, appointments, medications, allergies reviewed. Previous Medical History PAST MEDICAL HISTORY Diagnosis Date Anemia Bronchiolitis as resolved Cholestasis of in second trimester 05/10/2016 Constipation 11/08/2011 depression counseling only NEGATIVE MEDICAL HISTORY normal color vision Pancreatitis with gallbladder issues depression Strep throat recurrent, tonsillectomy age 3 years Previous Surgical History PAST SURGICAL HISTORY Procedure Laterality Date LAPAROSCOPY SURG CHOLECYSTECTOMY 2014 Cholecystectomy, lap TONSILLECTOMY HX age 3 years Family History FAMILY HISTORY Problem Relation Age of Onset Asthma Mother No Known Problems Father other (heart murmur) Sister other (heart murmur) Brother No Known Problems Brother Cancer Maternal Grandmother Adrenal Hypertension Maternal Grandmother No Known Problems Maternal Grandfather No Known Problems Paternal Grandmother No Known Problems Paternal Grandfather No Known Problems Son No Known Problems Son Patient Allergies ALLERGIES No Known Allergies Current Medications Current Outpatient Medications on File Prior to Visit Medication Sig albuterol HFA (PROVENTIL HFA, VENTOLIN HFA) 90 mcg/actuation inhaler Inhale 2 Puffs as instructed every 4 hours as needed for wheezing/shortness of breath. sertraline (ZOLOFT) 50 mg tablet Take 1 tablet by mouth once daily. norgestimate 0.25 mg-ethinyl estradiol 35 mcg (SPRINTEC) 0.25-35 mg-mcg per tablet Take 1 tablet by mouth once daily. No current facility-administered medications on file prior to visit. Social History Social History Tobacco Use Smoking status: Never Smokeless tobacco: Never Tobacco comments: parents smoke Vaping Use Vaping Use: Never used Substance Use Topics Alcohol use: No Drug use: No EXAM: LMP 09/18/2021 Video exam: herpetic lesions on left upper, right lower lips; mild swelling of lips. Health Maintenance List MENINGOCOCCAL B: Consider based on risk(1 of 2 - Risk Bexsero 2-dose series) Never done GC (GONORRHEA) SCREENING (18-24) due on 05/12/2021 CHLAMYDIA SCREENING (18-24) due on 05/12/2021 COVID-19 VACCINE(3 - Booster for Pfizer series) due on 05/18/2021 INFLUENZA(1) due on 03/21/2022 DEPRESSION ASSESSMENT Never done PAP TESTING due on 01/06/2024 DTAP,TDAP,TD(10 - Td or Tdap) due on 08/21/2030 HEPATITIS B Completed HPV VACCINE Completed HEPATITIS C SCREENING Completed HIV SCREENING Completed Data reviewed none ASSESSMENT/PLAN: 1. Recurrent cold sores - ICD9: 054.9, ICD10: B00.1 Will use Valtrex 1 gm bid for 7 days for outbreaks. Discussed that she may need prophylactic treatment depending on frequency of outbreaks. - VALACYCLOVIR 1 GRAM TABLET Follow up prn I agree with the Chief Complaint, ROS, and Past Histories independently gathered by the clinical other sales support worker and the remaining scribed note accurately describes my personal service to the patient. Francesca Gill MD The documentation for this note was completed by Dot Russo Ma acting as scribe for Francesca Gill MD. September 10, 2022 4:08 PM. Dot Russo Ma documented in this encounter [facility] 09-09-2022 Miscellaneous Notes Pt accepted appt. Dot Russo Ma Offered pt VV appt tomorrow 09/10/22 at 4:40 PM with PCP to evaluate mouth blisters. Awaiting her response. documented in this encounter [facility] 10-17-2021 History of Present illness Narrative Chief Complaint Patient presents with: Cough: stuffy nose sore throat, no fever or chills or body aches HPI Marianne A Lewis is a 21 year old female who presents here today for Above Complaints. Marianne is an established patient of Dr. Gill. This patient to new to me today. Cough: Cough, sore throat, and stuffy nose x 2 days. Productive yellow mucous with cough occasionally. Has tried OTC cold and flu medicine with little relief. Denies fever/chills or night sweats. Has 1 year old at home. Denies CP, SOB, or dizziness. No other complaints or concerns. Past medical history, appointments, medications, allergies reviewed. Previous Medical History PAST MEDICAL HISTORY Diagnosis Date Anemia Bronchiolitis as resolved Cholestasis of in second trimester 05/10/2016 Constipation 11/08/2011 depression counseling only NEGATIVE MEDICAL HISTORY normal color vision Pancreatitis with gallbladder issues depression Strep throat recurrent, tonsillectomy age 3 years Previous Surgical History PAST SURGICAL HISTORY Procedure Laterality Date LAPAROSCOPY SURG CHOLECYSTECTOMY 2014 Cholecystectomy, lap TONSILLECTOMY HX age 3 years Family History FAMILY HISTORY Problem Relation Age of Onset Asthma Mother No Known Problems Father other (heart murmur) Sister other (heart murmur) Brother No Known Problems Brother Cancer Maternal Grandmother Adrenal Hypertension Maternal Grandmother No Known Problems Maternal Grandfather No Known Problems Paternal Grandmother No Known Problems Paternal Grandfather No Known Problems Son No Known Problems Son Patient Allergies ALLERGIES No Known Allergies Current Medications Current Outpatient Medications on File Prior to Visit Medication Sig sertraline (ZOLOFT) 50 mg tablet Take 1 tablet by mouth once daily. norgestimate 0.25 mg-ethinyl estradiol 35 mcg (SPRINTEC) 0.25-35 mg-mcg per tablet Take 1 tablet by mouth once daily. No current facility-administered medications on file prior to visit. Social History Social History Tobacco Use Smoking status: Never Smoker Smokeless tobacco: Never Used Tobacco comment: parents smoke Vaping Use Vaping Use: Never used Substance Use Topics Alcohol use: No Drug use: No REVIEW OF SYSTEMS: as above Reviewed relevant PMHx, PSHx, Social Hx, current medications and allergies. Review of Symptoms See HPI. All other systems are negative. EXAM: BP 110/62 (BP Site: Left Arm, BP Position: Sitting, BP Cuff Size: Regular Adult) Pulse 101 Temp 37.4 C (99.4 F) Wt 95.3 kg (210 lb) LMP 03/06/2021 (Approximate) SpO2 93% BMI 36.62 kg/m General Appearance: Well appearing, alert, in no acute distress, well-hydrated, well nourished.. Skin: Skin color, texture, turgor normal, no suspicious rashes or lesions. Head: Normocephalic, no masses, lesions, tenderness or abnormalities. Eyes: Anicteric sclera. Pupils are equally round and reactive to light. Extraocular movements are intact. . Ears: External ears normal, canals clear. Nose/Sinuses: Nares normal, septum midline, mucosa normal, no drainage or sinus tenderness. Oropharynx: Lips, mucosa, and tongue normal, teeth and gums normal, oropharynx normal. Neck: Supple, no adenopathy; thyroid symmetric, normal size, no bruits. Lungs: Lungs clear to auscultation. No wheezing, rhonchi, rales.. Heart: RRR without murmur, gallop, or rubs. No ectopy. Lymph Nodes: No cervical lymphadenopathy, No supraclavicular lymphadenopathy, No axillary lymphadenopathy. and No inguinal lymphadenopathy.. Health Maintenance List MENINGOCOCCAL B: Consider based on risk(1 of 2 - Risk Bexsero 2-dose series) Never done INFLUENZA(1) due on 03/21/2021 GC (GONORRHEA) SCREENING (18-24) due on 05/12/2021 CHLAMYDIA SCREENING (18-24) due on 05/12/2021 COVID-19 VACCINE(3 - Booster for Pfizer series) due on 08/23/2021 DEPRESSION SCREENING due on 10/17/2022 PAP TESTING due on 01/06/2024 DTAP,TDAP,TD(10 - Td or Tdap) due on 08/21/2030 HPV VACCINE Completed HEPATITIS C SCREENING Completed HIV SCREENING Completed MENINGOCOCCAL CONJUGATE Aged Out ASSESSMENT/PLAN: 1. Cough - ICD9: 786.2, ICD10: R05.9 (primary diagnosis) Likely viral. Will swab for COVID and influenza. - COVID WITH FLUA+B, ROUTINE - BENZONATATE 100 MG CAPSULE 2. Viral syndrome - ICD9: 079.99, ICD10: B34.9 - Discussed viral etiology and rationale for treatment. - Rapid strep negative in office today - Symptomatic treatment with prn analgesia - Supportive care with fluids and rest - The patient may also use OTC decongestants prn, OTC cough and cold meds as needed and warm salt water gargles, throat lozenges and/or OTC throat spray as needed. - Follow up in 3-5 days if symptoms persist or sooner if worsening of symptoms 3. Sore throat - ICD9: 462, ICD10: J02.9 - suspect viral - Rapid Strep negative in the office today - Discussed supportive care treatment with fluids, rest and analgesia. - The patient should follow up in 3-5 days if symptoms persist or worsen - COVID WITH FLUA+B, ROUTINE - STREP A MOLECULAR (POC) 4. Nose congestion - ICD9: 478.19, ICD10: R09.81 - COVID WITH FLUA+B, ROUTINE RTO if symptoms do not improve or worsen in the next 5 days. Prescription instructions reviewed with patient as applicable. Potential red flag symptoms discussed with the patient. Reviewed appropriate action plan to take if red flag symptoms occur. Patient agreeable to treatment plan. Ann Marie Bailey APRN.INDUSTRIAL RADIOGRAPHER [address] [place] [address] documented in this encounter [facility] 10-24-2020 History of Past i llness Narrative Problem Noted Date Resolved Date Positive GBS test 10/24/2020 03/27/2021 Overview: 10/22/20- GBS positive. 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 07/23/2017 Iron deficiency anemia 03/20/2017 Overview: 07/05/17 - Patient scheduled to get IV iron on 06/23/17 - [facility] 05/27/17 - getting IV iron, repeat cbc & iron studies in 1 month per - RAD[facility] 05/23/17- heme consult for possible IV iron - KJ Positive serology for syphilis 02/14/2017 0 07/25/2020 Overview: 04/10/17: NEGATIVE 03/21/17 - stable testing, repeat 6 weeks - KJ 02/14/17 - likely false positive as confirmatory tests are negative, similar results last , repeat IgG in 6 weeks - KJ Short interval between pregn ancies affecting , antepartum 02/13/2017 09/19/2017 Overview: 02/13/2017 Patient's last delivery was 08/2016. This is a surprise . The FOB is 19 years old and is involved. He is the father of her previous child. TKRN History of depression 02/13/2017 09/19/2017 Overview: 02/13/2017 Pt has a history of depression treated by Dr Torres. . She has been off medication for 2 months . She believes she is doing well off medication. Discussed increased risks of depression during and and importance of reporting the development or worsening of symptoms should they occur.Pt denies ever having any suicidal thoughts or tendencies or thoughts of hurting others. TKRN Pelvic pain in , antepartum 02/13/2017 09/19/2017 Overview: 02/13/2017Patient has noted pelvic cramping on the right side for the past 2 days that she rates a 5. Denies any bleeding. To see Dr Pereira today for evaluation. TKRN History of infection 02/13/2017 09/19/2017 Overview: 02/13/2017Patient currently on antibiotics for sinus infection. TKRN Acute gallstone pancreatitis 05/06/2016 Overview: - S/p lap dominick 2014 had pancreatitis at that time. Sees GI at [facility], dilated common bile duct. Barb Dickey MD - S/p ERCP 05/16/2016 Pruritus of in second trimester 201505/10/2016 Overview: Ordered bile acids Asymptomatic bacteriuria during in fir st trimester 02/29/2016 02/13/2017 Abnormal laboratory test 02/27/2016 016 Overview: Low Equivocal anticardiolipin antibody - repeat testing beginning of May 2016 Barb Dickey MD Gastroesophageal reflux in 02/26/2016 02/13/2017 Overview: Zantac ordered High risk teen in third trimester 01/1902/13/2017 Overview: Boy on - [facility] Nausea/vomiting in 02/08/2016 Overview: February 26, 2016 ordered phenergan Barb Dickey MD 02/08/2016Patient is complaining of nausea in . She denies any vomiting. Recommended Vitamin B6. Advised patient to call/come in if she is unable to keep any food or fluids down in a 24-hour period. 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 02/13/2017 Overview: 12/30/14 - still weakly positive at 0.9, confirmatory tests remain negative, again c/w false positive, consider repeat testing in 2-3 months - KJ 11/22/14 - syphilis IgG positive at 1.0, RPR & FTA-Abs negative, c/w false positive, needs repeat syphilis IgG in 2-3 months - KJ Teen 11/16/2014 02/08/2016 Overview: 11/16/14 - mother is supportive, FOB is 16 & is involved - Constipation 11/08/2011 11/16/2014 documented as of this encounter (statuses as of 10/17/2021) [facility] History of Past illness Narrative* Problem Noted Date Resolved Date Positive GBS test 10/24/2020 03/27/2021 Overview: 10/22/20- GBS positive. 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 07/23/2017 Iron deficiency anemia 03/20/2017 Overview: 07/05/17 - Patient scheduled to get IV iron on 06/23/17 - [facility] 05/27/17 - getting IV iron, repeat cbc & iron studies in 1 month per - [facility] 05/23/17- heme consult for possible IV iron - KJ Positive serology for syphilis 02/14/2017 0 07/25/2020 Overview: 04/10/17: NEGATIVE 03/21/17 - stable testing, repeat 6 weeks - KJ 02/14/17 - likely false positive as confirmatory tests are negative, similar results last , repeat IgG in 6 weeks - KJ Short interval between pregn ancies affecting , antepartum 02/13/2017 09/19/2017 Overview: 02/13/2017 Patient's last delivery was 08/2016. This is a surprise . The FOB is 19 years old and is involved. He is the father of her previous child. TKRN History of depression 02/13/2017 09/19/2017 Overview: 02/13/2017 Pt has a history of depression treated by Dr Torres. . She has been off medication for 2 months . She believes she is doing well off medication. Discussed increased risks of depression during and and importance of reporting the development or worsening of symptoms should they occur.Pt denies ever having any suicidal thoughts or tendencies or thoughts of hurting others. TKRN Pelvic pain in , antepartum 02/13/2017 09/19/2017 Overview: 02/13/2017Patient has noted pelvic cramping on the right side for the past 2 days that she rates a 5. Denies any bleeding. To see Dr Pereira today for evaluation. TKRN History of infection 02/13/2017 09/19/2017 Overview: 02/13/2017Patient currently on antibiotics for sinus infection. TKRN Acute gallstone pancreatitis 05/06/2016 Overview: - S/p lap dominick 2014 had pancreatitis at that time. Sees GI at [facility], dilated common bile duct. Barb Dickey MD - S/p ERCP 05/16/2016 Pruritus of in second trimester 201505/10/2016 Overview: Ordered bile acids Asymptomatic bacteriuria during in fir st trimester 02/29/2016 02/13/2017 Abnormal laboratory test 02/27/2016 016 Overview: Low Equivocal anticardiolipin antibody - repeat testing beginning of May 2016 Barb Dickey MD Gastroesophageal reflux in 02/26/2016 02/13/2017 Overview: Zantac ordered High risk teen in third trimester 01/1902/13/2017 Overview: Boy on [facility] Nausea/vomiting in 02/08/2016 Overview: February 26, 2016 ordered phenergan Barb Dickey MD 02/08/2016Patient is complaining of nausea in . She denies any vomiting. Recommended Vitamin B6. Advised patient to call/come in if she is unable to keep any food or fluids down in a 24-hour period. 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 02/13/2017 Overview: 6/12/15 - still weakly positive at 0.9, confirmatory tests remain negative, again c/w false positive, consider repeat testing in 2-3 months - KJ 11/22/14 - syphilis IgG positive at 1.0, RPR & FTA-Abs negative, c/w false positive, needs repeat syphilis IgG in 2-3 months - Teen 11/16/2014 02/08/2016 Overview: 11/16/14 - mother is supportive, FOB is 16 & is involved - Constipation 11/08/2011 11/16/2014 documented as of this encounter (statuses as of 02/07/2022) [facility] History of Past illness Narrative* Problem Noted Date Resolved Date Positive GBS test 10/24/2020 03/27/2021 Overview: 10/22/20- GBS positive. 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 07/23/2017 Iron deficiency anemia 03/20/2017 Overview: 07/05/17 - Patient scheduled to get IV iron on 06/23/17 - [facility] 05/27/17 - getting IV iron, repeat cbc & iron studies in 1 month per - 05/23/17- heme consult for possible IV iron - Positive serology for syphilis 02/14/2017 0 07/25/2020 Overview: 04/10/17: NEGATIVE 03/21/17 - stable testing, repeat 6 weeks - KJ 02/14/17 - likely false positive as confirmatory tests are negative, similar results last , repeat IgG in 6 weeks - Short interval between pregn ancies affecting , antepartum 02/13/2017 09/19/2017 Overview: 02/13/2017 Patient's last delivery was 08/2016. This is a surprise . The FOB is 19 years old and is involved. He is the father of her previous child. TKRN History of depression 02/13/2017 09/19/2017 Overview: 02/13/2017 Pt has a history of depression treated by Dr Torres. . She has been off medication for 2 months . She believes she is doing well off medication. Discussed increased risks of depression during and and importance of reporting the development or worsening of symptoms should they occur.Pt denies ever having any suicidal thoughts or tendencies or thoughts of hurting others. TKRN Pelvic pain in , antepartum 02/13/2017 09/19/2017 Overview: 02/13/2017Patient has noted pelvic cramping on the right side for the past 2 days that she rates a 5. Denies any bleeding. To see Dr Pereira today for evaluation. TKRN History of infection 02/13/2017 09/19/2017 Overview: 02/13/2017Patient currently on antibiotics for sinus infection. TKRN Acute gallstone pancreatitis 05/06/2016 Overview: - S/p lap dominick 2014 had pancreatitis at that time. Sees GI at [facility], dilated common bile duct. Barb Dickey MD - S/p ERCP 05/16/2016 Pruritus of in second trimester 201505/10/2016 Overview: Ordered bile acids Asymptomatic bacteriuria during in fir st trimester 02/29/2016 02/13/2017 Abnormal laboratory test 02/27/2016 016 Overview: Low Equivocal anticardiolipin antibody - repeat testing beginning of May 2016 Barb Dickey MD Gastroesophageal reflux in 02/26/2016 02/13/2017 Overview: Zantac ordered High risk teen in third trimester 01/1902/13/2017 Overview: Boy on us- Jett Nausea/vomiting in 02/08/2016 Overview: February 26, 2016 ordered bernie Dickey MD 02/08/2016Patient is complaining of nausea in . She denies any vomiting. Recommended Vitamin B6. Advised patient to call/come in if she is unable to keep any food or fluids down in a 24-hour period. 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 02/13/2017 Overview: 12/30/14 - still weakly positive at 0.9, confirmatory tests remain negative, again c/w false positive, consider repeat testing in 2-3 months - 11/22/14 - syphilis IgG positive at 1.0, RPR & FTA-Abs negative, c/w false positive, needs repeat syphilis IgG in 2-3 months - KJ Teen 11/16/2014 02/08/2016 Overview: 11/16/14 - mother is supportive, FOB is 16 & is involved - KJ Constipation 11/08/2011 11/16/2014 documented as of this encounter (statuses as of 09/09/2022) [facility]04-06-2021 History of Past illness Narrative* Problem Noted Date Resolved Date Positive GBS test 10/24/2020 03/27/2021 Overview: 10/22/20- GBS positive. 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 07/23/2017 Iron deficiency anemia 03/20/2017 Overview: 07/05/17 - Patient scheduled to get IV iron on 06/23/17 - CJM 05/27/17 - getting IV iron, repeat cbc & iron studies in 1 month per - KJ 05/23/17- heme consult for possible IV iron - KJ Positive serology for syphilis 02/14/2017 0 07/25/2020 Overview: 04/10/17: NEGATIVE 03/21/17 - stable testing, repeat 6 weeks - KJ 02/14/17 - likely false positive as confirmatory tests are negative, similar results last , repeat IgG in 6 weeks - KJ Short interval between pregn ancies affecting , antepartum 02/13/2017 09/19/2017 Overview: 02/13/2017 Patient's last delivery was 08/2016. This is a surprise . The FOB is 19 years old and is involved. He is the father of her previous child. TKRN History of depression 02/13/2017 09/19/2017 Overview: 02/13/2017 Pt has a history of depression treated by Dr Torres. . She has been off medication for 2 months . She believes she is doing well off medication. Discussed increased risks of depression during and and importance of reporting the development or worsening of symptoms should they occur.Pt denies ever having any suicidal thoughts or tendencies or thoughts of hurting others. TKRN Pelvic pain in , antepartum 02/13/2017 09/19/2017 Overview: 02/13/2017Patient has noted pelvic cramping on the right side for the past 2 days that she rates a 5. Denies any bleeding. To see Dr Pereira today for evaluation. TKRN History of infection 02/13/2017 09/19/2017 Overview: 02/13/2017Patient currently on antibiotics for sinus infection. TKRN Acute gallstone pancreatitis 05/06/2016 Overview: - S/p lap dominick 2014 had pancreatitis at that time. Sees GI at [facility], dilated common bile duct. Barb Dickey MD - S/p ERCP 05/16/2016 Pruritus of in second trimester 201505/10/2016 Overview: Ordered bile acids Asymptomatic bacteriuria during in fir st trimester 02/29/2016 02/13/2017 Abnormal laboratory test 02/27/2016 016 Overview: Low Equivocal anticardiolipin antibody - repeat testing beginning of May 2016 Barb Dickey MD Gastroesophageal reflux in 02/26/2016 02/13/2017 Overview: Zantac ordered High risk teen in third trimester 01/1902/13/2017 Overview: Boy on - [place] Nausea/vomiting in 02/08/2016 Overview: February 26, 2016 ordered phenergan Barb Dickey MD 02/08/2016Patient is complaining of nausea in . She denies any vomiting. Recommended Vitamin B6. Advised patient to call/come in if she is unable to keep any food or fluids down in a 24-hour period. 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 02/13/2017 Overview: 12/30/14 - still weakly positive at 0.9, confirmatory tests remain negative, again c/w false positive, consider repeat testing in 2-3 months - 11/22/14 - syphilis IgG positive at 1.0, RPR & FTA-Abs negative, c/w false positive, needs repeat syphilis IgG in 2-3 months - Teen 11/16/2014 02/08/2016 Overview: 11/16/14 - mother is supportive, FOB is 16 & is involved - Constipation 11/08/2011 11/16/2014 documented as of this encounter (statuses as of 09/11/2022) [facility]04-06-2021 History of Past illness Narrative* Problem Noted Date Resolved Date Positive GBS test 10/24/2020 03/27/2021 Overview: 10/22/20- GBS positive. 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 07/23/2017 Iron deficiency anemia 03/20/2017 Overview: 07/05/17 - Patient scheduled to get IV iron on 06/23/17 - CJM 05/27/17 - getting IV iron, repeat cbc & iron studies in 1 month per - RADHA 05/23/17- heme consult for possible IV iron - KJ Positive serology for syphilis 02/14/2017 0 07/25/2020 Overview: 04/10/17: NEGATIVE 03/21/17 - stable testing, repeat 6 weeks - KJ 02/14/17 - likely false positive as confirmatory tests are negative, similar results last , repeat IgG in 6 weeks - KJ Short interval between pregn ancies affecting , antepartum 02/13/2017 09/19/2017 Overview: 02/13/2017 Patient's last delivery was 08/2016. This is a surprise . The FOB is 19 years old and is involved. He is the father of her previous child. TKRN History of depression 02/13/2017 09/19/2017 Overview: 02/13/2017 Pt has a history of depression treated by Dr Torres. . She has been off medication for 2 months . She believes she is doing well off medication. Discussed increased risks of depression during and and importance of reporting the development or worsening of symptoms should they occur.Pt denies ever having any suicidal thoughts or tendencies or thoughts of hurting others. TKRN Pelvic pain in , antepartum 02/13/2017 09/19/2017 Overview: 02/13/2017Patient has noted pelvic cramping on the right side for the past 2 days that she rates a 5. Denies any bleeding. To see Dr Pereira today for evaluation. TKRN History of infection 02/13/2017 09/19/2017 Overview: 02/13/2017Patient currently on antibiotics for sinus infection. TKRN Acute gallstone pancreatitis 05/06/2016 Overview: - S/p lap dominick 2014 had pancreatitis at that time. Sees GI at [facility], dilated common bile duct. Barb Dickey MD - S/p ERCP 05/16/2016 Pruritus of in second trimester 201505/10/2016 Overview: Ordered bile acids Asymptomatic bacteriuria during in fir st trimester 02/29/2016 02/13/2017 Abnormal laboratory test 02/27/2016 016 Overview: Low Equivocal anticardiolipin antibody - repeat testing beginning of May 2016 Barb Dickey MD Gastroesophageal reflux in 02/26/2016 02/13/2017 Overview: Zantac ordered High risk teen in third trimester 01/1902/13/2017 Overview: Boy on - [place] Nausea/vomiting in 02/08/2016 Overview: February 26, 2016 ordered cbergan Barb Dickey MD 02/08/2016Patient is complaining of nausea in . She denies any vomiting. Recommended Vitamin B6. Advised patient to call/come in if she is unable to keep any food or fluids down in a 24-hour period. 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 02/13/2017 Overview: 12/30/14 - still weakly positive at 0.9, confirmatory tests remain negative, again c/w false positive, consider repeat testing in 2-3 months - 11/22/14 - syphilis IgG positive at 1.0, RPR & FTA-Abs negative, c/w false positive, needs repeat syphilis IgG in 2-3 months - Teen 11/16/2014 02/08/2016 Overview: 11/16/14 - mother is supportive, FOB is 17 & is involved - Constipation 11/08/2011 11/16/2014 documented as of this encounter (statuses as of 10/02/2022) [facility]04-[facility]-2021 History of Past illness Narrative* Problem Noted Date Resolved Date Positive GBS test 10/24/2020 03/27/2021 Overview: 10/22/20- GBS positive. 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 07/23/2017 Iron deficiency anemia 03/20/2017 Overview: 07/05/17 - Patient scheduled to get IV iron on 06/23/17 - CJM 05/27/17 - getting IV iron, repeat cbc & iron studies in 1 month per - RADHA 05/23/17- heme consult for possible IV iron - Positive serology for syphilis 02/14/2017 0 07/25/2020 Overview: 04/10/17: NEGATIVE 03/21/17 - stable testing, repeat 6 weeks - KJ 02/14/17 - likely false positive as confirmatory tests are negative, similar results last , repeat IgG in 6 weeks - KJ Short interval between pregn ancies affecting , antepartum 02/13/2017 09/19/2017 Overview: 02/13/2017 Patient's last delivery was 08/2016. This is a surprise . The FOB is 19 years old and is involved. He is the father of her previous child. TKRN History of depression 02/13/2017 09/19/2017 Overview: 02/13/2017 Pt has a history of depression treated by Dr Torres. . She has been off medication for 2 months . She believes she is doing well off medication. Discussed increased risks of depression during and and importance of reporting the development or worsening of symptoms should they occur.Pt denies ever having any suicidal thoughts or tendencies or thoughts of hurting others. TKRN Pelvic pain in , antepartum 02/13/2017 09/19/2017 Overview: 02/13/2017Patient has noted pelvic cramping on the right side for the past 2 days that she rates a 5. Denies any bleeding. To see Dr Pereira today for evaluation. TKRN History of infection 02/13/2017 09/19/2017 Overview: 02/13/2017Patient currently on antibiotics for sinus infection. TKRN Acute gallstone pancreatitis 05/06/2016 Overview: - S/p lap dominick 2014 had pancreatitis at that time. Sees GI at [facility], dilated common bile duct. Barb Dickey MD - S/p ERCP 05/16/2016 Pruritus of in second trimester 201505/10/2016 Overview: Ordered bile acids Asymptomatic bacteriuria during in fir st trimester 02/29/2016 02/13/2017 Abnormal laboratory test 02/27/201606/07/ 016 Overview: Low Equivocal anticardiolipin antibody - repeat testing beginning of May 2016 Barb Dickey MD Gastroesophageal reflux in 02/26/2016 02/13/2017 Overview: Zantac ordered High risk teen in third trimester 01/1902/13/2017 Overview: Boy on - Jett Nausea/vomiting in 02/08/2016 Overview: February 26, 2016 ordered cbergan Barb Dickey MD 02/08/2016Patient is complaining of nausea in . She denies any vomiting. Recommended Vitamin B6. Advised patient to call/come in if she is unable to keep any food or fluids down in a 24-hour period. 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 02/13/2017 Overview: 12/30/14 - still weakly positive at 0.9, confirmatory tests remain negative, again c/w false positive, consider repeat testing in 2-3 months - 11/22/14 - syphilis IgG positive at 1.0, RPR & FTA-Abs negative, c/w false positive, needs repeat syphilis IgG in 2-3 months - Teen 11/16/2014 02/08/2016 Overview: 11/16/14 - mother is supportive, FOB is 17 & is involved - Constipation 11/08/2011 11/16/2014 documented as of this encounter (statuses as of 10/02/2022) [facility]04-[facility]21 History of Past illness Narrative* Problem Noted Date Resolved Date Positive GBS test 10/24/2020 03/27/2021 Overview: 10/22/20- GBS positive. 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 07/23/2017 Iron deficiency anemia 03/20/2017 Overview: 07/05/17 - Patient scheduled to get IV iron on 06/23/17 - CJM 05/27/17 - getting IV iron, repeat cbc & iron studies in 1 month per - KJ 05/23/17- heme consult for possible IV iron - KJ Positive serology for syphilis 02/14/2017 0 07/25/2020 Overview: 04/10/17: NEGATIVE 03/21/17 - stable testing, repeat 6 weeks - KJ 02/14/17 - likely false positive as confirmatory tests are negative, similar results last , repeat IgG in 6 weeks - KJ Short interval between pregn ancies affecting , antepartum 02/13/2017 09/19/2017 Overview: 02/13/2017 Patient's last delivery was 08/2016. This is a surprise . The FOB is 19 years old and is involved. He is the father of her previous child. TKRN History of depression 02/13/2017 09/19/2017 Overview: 02/13/2017 Pt has a history of depression treated by Dr Torres. . She has been off medication for 2 months . She believes she is doing well off medication. Discussed increased risks of depression during and and importance of reporting the development or worsening of symptoms should they occur.Pt denies ever having any suicidal thoughts or tendencies or thoughts of hurting others. TKRN Pelvic pain in , antepartum 02/13/2017 09/19/2017 Overview: 02/13/2017Patient has noted pelvic cramping on the right side for the past 2 days that she rates a 5. Denies any bleeding. To see Dr Pereira today for evaluation. TKRN History of infection 02/13/2017 09/19/2017 Overview: 02/13/2017Patient currently on antibiotics for sinus infection. TKRN Acute gallstone pancreatitis 05/06/2016 Overview: - S/p gilson dominick 2014 had pancreatitis at that time. Sees GI at [facility], dilated common bile duct. Barb Dickey MD - S/p ERCP 05/16/2016 Pruritus of in second trimester 201505/10/2016 Overview: Ordered bile acids Asymptomatic bacteriuria during in fir st trimester 02/29/2016 02/13/2017 Abnormal laboratory test 02/27/2016 016 Overview: Low Equivocal anticardiolipin antibody - repeat testing beginning of May 2016 Barb Dickey MD Gastroesophageal reflux in 02/26/2016 02/13/2017 Overview: Zantac ordered High risk teen in third trimester 01/1902/13/2017 Overview: Boy on - [place] Nausea/vomiting in 02/08/2016 Overview: February 26, 2016 ordered phenergan Barb Dickey MD 02/08/2016Patient is complaining of nausea in . She denies any vomiting. Recommended Vitamin B6. Advised patient to call/come in if she is unable to keep any food or fluids down in a 24-hour period. 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 02/13/2017 Overview: 12/30/14 - still weakly positive at 0.9, confirmatory tests remain negative, again c/w false positive, consider repeat testing in 2-3 months - 11/22/14 - syphilis IgG positive at 1.0, RPR & FTA-Abs negative, c/w false positive, needs repeat syphilis IgG in 2-3 months - Teen 11/16/2014 02/08/2016 Overview: 11/16/14 - mother is supportive, FOB is 17 & is involved - KJ Constipation 11/08/2011 11/16/2014 documented as of this encounter (statuses as of 10/10/2022) [facility]04[facility] History of Past illness Narrative* Problem Noted Date Resolved Date Positive GBS test 10/24/2020 03/27/2021 Overview: 10/22/20- GBS positive. 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 This is a surprise . The FOB is 19 years old and is involved. He is the father of her previous child. TKRN History of depression 02/13/2017 09/19/2017 Overview: 02/13/2017 Pt has a history of depression treated by Dr Torres. . She has been off medication for 2 months . She believes she is doing well off medication. Discussed increased risks of depression during and and importance of reporting the development or worsening of symptoms should they occur.Pt denies ever having any suicidal thoughts or tendencies or thoughts of hurting others. TKRN Pelvic pain in , antepartum 02/13/2017 09/19/2017 Overview: 02/13/2017Patient has noted pelvic cramping on the right side for the past 2 days that she rates a 5. Denies any bleeding. To see Dr Pereira today for evaluation. TKRN History of infection 02/13/2017 09/19/2017 Overview: 02/13/2017Patient currently on antibiotics for sinus infection. TKRN Acute gallstone pancreatitis 05/06/2016 Overview: - S/p gilson dominick 2014 had pancreatitis at that time. Sees GI at [facility], dilated common bile duct. Barb Dickey MD - S/p ERCP 05/16/2016 Pruritus of in second trimester 201505/10/2016 Overview: Ordered bile acids Asymptomatic bacteriuria during in fir st trimester 02/29/2016 02/13/2017 Abnormal laboratory test 02/27/2016 016 Overview: Low Equivocal anticardiolipin antibody - repeat testing beginning of May 2016 Barb Dickey MD Gastroesophageal reflux in 02/26/2016 02/13/2017 Overview: Zantac ordered High risk teen in third trimester 01/1902/13/2017 Overview: Boy on - Jett Nausea/vomiting in 02/08/2016 Overview: February 26, 2016 ordered cbergleno Dickey MD 02/08/2016Patient is complaining of nausea in . She denies any vomiting. Recommended Vitamin B6. Advised patient to call/come in if she is unable to keep any food or fluids down in a 24-hour period. 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 02/13/2017 Overview: 12/30/14 - still weakly positive at 0.9, confirmatory tests remain negative, again c/w false positive, consider repeat testing in 2-3 months - KJ 11/22/14 - syphilis IgG positive at 1.0, RPR & FTA-Abs negative, c/w false positive, needs repeat syphilis IgG in 2-3 months - KJ Teen 11/16/2014 02/08/2016 Overview: 11/16/14 - mother is supportive, FOB is 17 & is involved - Constipation 11/08/2011 11/16/2014 documented as of this encounter (statuses as of 10/10/2022) [facility] History of Past illness Narrative* Problem Noted Date Resolved Date Positive GBS test 10/24/2020 03/27/2021 Overview: 10/22/20- GBS positive. 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 07/23/2017 Iron deficiency anemia 03/20/2017 Overview: 07/05/17 - Patient scheduled to get IV iron on 06/23/17 - CJM 05/27/17 - getting IV iron, repeat cbc & iron studies in 1 month per - RADHA 05/23/17- heme consult for possible IV iron - KJ Positive serology for syphilis 02/14/2017 0 07/25/2020 Overview: 04/10/17: NEGATIVE 03/21/17 - stable testing, repeat 6 weeks - KJ 02/14/17 - likely false positive as confirmatory tests are negative, similar results last , repeat IgG in 6 weeks - KJ Short interval between pregn ancies affecting , antepartum 02/13/2017 09/19/2017 Overview: 02/13/2017 Patient's last delivery was 08/2016. This is a surprise . The FOB is 19 years old and is involved. He is the father of her previous child. TKRN History of depression 02/13/2017 09/19/2017 Overview: 02/13/2017 Pt has a history of depression treated by Dr Torres. . She has been off medication for 2 months . She believes she is doing well off medication. Discussed increased risks of depression during and and importance of reporting the development or worsening of symptoms should they occur.Pt denies ever having any suicidal thoughts or tendencies or thoughts of hurting others. TKRN Pelvic pain in , antepartum 02/13/2017 09/19/2017 Overview: 02/13/2017Patient has noted pelvic cramping on the right side for the past 2 days that she rates a 5. Denies any bleeding. To see Dr Pereira today for evaluation. TKRN History of infection 02/13/2017 09/19/2017 Overview: 02/13/2017Patient currently on antibiotics for sinus infection. TKRN Acute gallstone pancreatitis 05/06/2016 Overview: - S/p gilson dominick 2014 had pancreatitis at that time. Sees GI at [facility], dilated common bile duct. Barb Dickey MD - S/p ERCP 05/16/2016 Pruritus of in second trimester 201505/10/2016 Overview: Ordered bile acids Asymptomatic bacteriuria during in fir st trimester 02/29/2016 02/13/2017 Abnormal laboratory test 02/27/2016 016 Overview: Low Equivocal anticardiolipin antibody - repeat testing beginning of May 2016 Barb Dickey MD Gastroesophageal reflux in 02/26/2016 02/13/2017 Overview: Zantac ordered High risk teen in third trimester 01/1902/13/2017 Overview: Boy on - Jett Nausea/vomiting in 02/08/2016 Overview: February 26, 2016 ordered phenergan Barb Dickey MD 02/08/2016Patient is complaining of nausea in . She denies any vomiting. Recommended Vitamin B6. Advised patient to call/come in if she is unable to keep any food or fluids down in a 24-hour period. 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 02/13/2017 Overview: 12/30/14 - still weakly positive at 0.9, confirmatory tests remain negative, again c/w false positive, consider repeat testing in 2-3 months - 11/22/14 - syphilis IgG positive at 1.0, RPR & FTA-Abs negative, c/w false positive, needs repeat syphilis IgG in 2-3 months - Teen 11/16/2014 02/08/2016 Overview: 11/16/14 - mother is supportive, FOB is 17 & is involved - KJ Constipation 11/08/2011 11/16/2014 documented as of this encounter (statuses as of 10/15/2022) [facility] History of Past illness Narrative* Problem Noted Date Resolved Date Positive GBS test 10/24/2020 03/27/2021 Overview: 10/22/20- GBS positive. 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 This is a surprise . The FOB is 19 years old and is involved. He is the father of her previous child. TKRN History of depression 02/13/2017 09/19/2017 Overview: 02/13/2017 Pt has a history of depression treated by Dr Torres. . She has been off medication for 2 months . She believes she is doing well off medication. Discussed increased risks of depression during and and importance of reporting the development or worsening of symptoms should they occur.Pt denies ever having any suicidal thoughts or tendencies or thoughts of hurting others. TKRN Pelvic pain in , antepartum 02/13/2017 09/19/2017 Overview: 02/13/2017Patient has noted pelvic cramping on the right side for the past 2 days that she rates a 5. Denies any bleeding. To see Dr Pereira today for evaluation. TKRN History of infection 02/13/2017 09/19/2017 Overview: 02/13/2017Patient currently on antibiotics for sinus infection. TKRN Acute gallstone pancreatitis 05/06/2016 Overview: - S/p lap dominick 2014 had pancreatitis at that time. Sees GI at [facility], dilated common bile duct. Barb Dickey MD - S/p ERCP 05/16/2016 Pruritus of in second trimester 201505/10/2016 Overview: Ordered bile acids Asymptomatic bacteriuria during in fir st trimester 02/29/2016 02/13/2017 Abnormal laboratory test 02/27/2016 016 Overview: Low Equivocal anticardiolipin antibody - repeat testing beginning of May 2016 Barb Dickey MD Gastroesophageal reflux in 02/26/2016 02/13/2017 Overview: Zantac ordered High risk teen in third trimester 01/1902/13/2017 Overview: Boy on - [place]es[place] Nausea/vomiting in 02/08/2016 Overview: February 26, 2016 ordered phenergan Barb Dickey MD 02/08/2016Patient is complaining of nausea in . She denies any vomiting. Recommended Vitamin B6. Advised patient to call/come in if she is unable to keep any food or fluids down in a 24-hour period. 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 02/13/2017 Overview: 12/30/14 - still weakly positive at 0.9, confirmatory tests remain negative, again c/w false positive, consider repeat testing in 2-3 months - KJ 11/22/14 - syphilis IgG positive at 1.0, RPR & FTA-Abs negative, c/w false positive, needs repeat syphilis IgG in 2-3 months - KJ Teen 11/16/2014 02/08/2016 Overview: 11/16/14 - mother is supportive, FOB is 16 & is involved - Constipation 11/08/2011 11/16/2014 documented as of this encounter (statuses as of 11/01/2022) [facility]04[facility]21 History of Past illness Narrative* Problem Noted Date Resolved Date Positive GBS test 10/24/2020 03/27/2021 Overview: 10/22/20- GBS positive. 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 This is a surprise . The FOB is 19 years old and is involved. He is the father of her previous child. TKRN History of depression 02/13/2017 09/19/2017 Overview: 02/13/2017 Pt has a history of depression treated by Dr Torres. . She has been off medication for 2 months . She believes she is doing well off medication. Discussed increased risks of depression during and and importance of reporting the development or worsening of symptoms should they occur.Pt denies ever having any suicidal thoughts or tendencies or thoughts of hurting others. TKRN Pelvic pain in , antepartum 02/13/2017 09/19/2017 Overview: 02/13/2017Patient has noted pelvic cramping on the right side for the past 2 days that she rates a 5. Denies any bleeding. To see Dr Pereira today for evaluation. TKRN History of infection 02/13/2017 09/19/2017 Overview: 02/13/2017Patient currently on antibiotics for sinus infection. TKRN Acute gallstone pancreatitis 05/06/2016 Overview: - S/p lap dominick 2014 had pancreatitis at that time. Sees GI at [facility], dilated common bile duct. Barb Dickey MD - S/p ERCP 05/16/2016 Pruritus of in second trimester 201505/10/2016 Overview: Ordered bile acids Asymptomatic bacteriuria during in fir st trimester 02/29/2016 02/13/2017 Abnormal laboratory test 02/27/2016 016 Overview: Low Equivocal anticardiolipin antibody - repeat testing beginning of May 2016 Barb Dickey MD Gastroesophageal reflux in 02/26/2016 02/13/2017 Overview: Zantac ordered High risk teen in third trimester 01/1902/13/2017 Overview: Boy on - [place] Nausea/vomiting in 02/08/2016 Overview: February 26, 2016 ordered bernie Dickey MD 02/08/2016Patient is complaining of nausea in . She denies any vomiting. Recommended Vitamin B6. Advised patient to call/come in if she is unable to keep any food or fluids down in a 24-hour period. 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 02/13/2017 Overview: 12/30/14 - still weakly positive at 0.9, confirmatory tests remain negative, again c/w false positive, consider repeat testing in 2-3 months - KJ 11/22/14 - syphilis IgG positive at 1.0, RPR & FTA-Abs negative, c/w false positive, needs repeat syphilis IgG in 2-3 months - Teen 11/16/2014 02/08/2016 Overview: 11/16/14 - mother is supportive, FOB is 16 & is involved - Constipation 11/08/2011 11/16/2014 documented as of this encounter (statuses as of 11/03/2022) [facility]04[facility]21 History of Past illness Narrative* Problem Noted Date Diagnosed Date Resolved Date Positive GBS test 10/24/2020 03/27/2021 Overview: 10/22/20- GBS positive. 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 Katia Mireles APRN.CNM Iron malabsorption 06/23/2017 8 Iron deficiency anemia 03/20/201707/25 Overview: 07/05/17 - Patient scheduled to get IV iron on 06/23/17 - [facility] 05/27/17 - getting IV iron, repeat cbc & iron studies in 1 month per - [facility] 05/23/17- heme consult for possible IV iron - KJ Positive serology for syphilis 02/14/2017 07/25/2020 Overview: 04/10/17: NEGATIVE 03/21/17 - stable testing, repeat 6 weeks - KJ 02/14/17 - likely false positive as confirmatory tests are negative, similar results last , repeat IgG in 6 weeks - KJ Short interval between pregn ancies affecting , antepartum 02/13/2017 09/19/2017 Overview: 02/13/2017 Patient's last delivery was 08/2016. This is a surprise . The FOB is 19 years old and is involved. He is the father of her previous child. TKRN History of depression 02/13/2017 09/19/2017 Overview: 02/13/2017 Pt has a history of depression treated by Dr Torres. . She has been off medication for 2 months . She believes she is doing well off medication. Discussed increased risks of depression during and and importance of reporting the development or worsening of symptoms should they occur.Pt denies ever having any suicidal thoughts or tendencies or thoughts of hurting others. TKRN Pelvic pain in , antepartum 02/13/2017 09/19/2017 Overview: 02/13/2017Patient has noted pelvic cramping on the right side for the past 2 days that she rates a 5. Denies any bleeding. To see Dr Pereira today for evaluation. TKRN History of infection 02/13/2017 018 Overview: 02/13/2017Patient currently on antibiotics for sinus infection. TKRN Acute gallstone pancreatitis 05/06/2016 02/13/2017 Overview: - S/p lap dominick 2014 had pancreatitis at that time. Sees GI at [facility], dilated common bile duct. Barb Dickey MD - S/p ERCP 05/16/2016 Pruritus of in second trimester 05/06/2016 05/10/2016 Overview: Ordered bile acids Asymptomatic bacteriuria dur ing in first trimester 02/29/2016 02/13/2017 Abnormal laboratory test 02/27/2016 Overview: Low Equivocal anticardiolipin antibody - repeat testing beginning of May 2016 Barb Dickey MD Gastroesophageal reflux in 02/26/2016 02/13/2017 Overview: Zantac ordered High risk teen in third trimester 02/08/2016 02/13/2017 Overview: Boy on - [place] Nausea/vomiting in 02/08/2016 02/13/2017 Overview: February 26, 2016 ordered phenergan Barb Dickey MD 02/08/2016Patient is complaining of nausea in . She denies any vomiting. Recommended Vitamin B6. Advised patient to call/come in if she is unable to keep any food or fluids down in a 24-hour period. 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 02/13/2017 Overview: 12/30/14 - still weakly positive at 0.9, confirmatory tests remain negative, again c/w false positive, consider repeat testing in 2-3 months - 11/22/14 - syphilis IgG positive at 1.0, RPR & FTA-Abs negative, c/w false positive, needs repeat syphilis IgG in 2-3 months - Teen 11/16/2014 02/08/2016 Overview: 11/16/14 - mother is supportive, FOB is 16 & is involved - Constipation 11/08/2011 11/16/2014 documented as of this encounter (statuses as of 02/07/2023) [facility]04-[facility]2021 History of Past illness Narrative* Problem Noted Date Diagnosed Date Resolved Date Positive GBS test 10/24/2020 03/27/2021 Overview: 10/22/20- GBS positive. Two vessel umbilical cord 06/22/2020 Overview: 06/22/20- 19.3 weeks gestation- found on anatomy ultrasound Late care affecting in second trimester 05/12/2020 03/27/2021 Overview: 05/12/20-Presented to [facility] 13w4d. 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 This is a surprise . The FOB is 19 years old and is involved. He is the father of her previous child. TKRN History of depression 02/13/2017 09/19/2017 Overview: 02/13/2017 Pt has a history of depression treated by Dr Torres. . She has been off medication for 2 months . She believes she is doing well off medication. Discussed increased risks of depression during and and importance of reporting the development or worsening of symptoms should they occur.Pt denies ever having any suicidal thoughts or tendencies or thoughts of hurting others. TKRN Pelvic pain in , antepartum 02/13/2017 09/19/2017 Overview: 02/13/2017Patient has noted pelvic cramping on the right side for the past 2 days that she rates a 5. Denies any bleeding. To see Dr Pereira today for evaluation. TKRN History of infection 02/13/2017 018 Overview: 02/13/2017Patient currently on antibiotics for sinus infection. TKRN Acute gallstone pancreatitis 05/06/2016 02/13/2017 Overview: - S/p lap dominick 2014 had pancreatitis at that time. Sees GI at [facility], dilated common bile duct. Barb Dickey MD - S/p ERCP 05/16/2016 Pruritus of in second trimester 05/06/2016 05/10/2016 Overview: Ordered bile acids Asymptomatic bacteriuria dur ing in first trimester 02/29/2016 02/13/2017 Abnormal laboratory test 02/27/2016 Overview: Low Equivocal anticardiolipin antibody - repeat testing beginning of May 2016 Barb Dickey MD Gastroesophageal reflux in 02/26/2016 02/13/2017 Overview: Zantac ordered High risk teen in third trimester 02/08/2016 02/13/2017 Overview: Boy on - [place] Nausea/vomiting in 02/08/2016 02/13/2017 Overview: February 26, 2016 ordered phenergan Barb Dickey MD 02/08/2016Patient is complaining of nausea in . She denies any vomiting. Recommended Vitamin B6. Advised patient to call/come in if she is unable to keep any food or fluids down in a 24-hour period. 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 02/13/2017 Overview: 12/30/14 - still weakly positive at 0.9, confirmatory tests remain negative, again c/w false positive, consider repeat testing in 2-3 months - KJ 11/22/14 - syphilis IgG positive at 1.0, RPR & FTA-Abs negative, c/w false positive, needs repeat syphilis IgG in 2-3 months - KJ Teen 11/16/2014 02/08/2016 Overview: 11/16/14 - mother is supportive, FOB is 17 & is involved - KJ Constipation 11/08/2011 11/16/2014 documented as of this encounter (statuses as of 06/05/2023) [facility]04[facility]21 History of Past illness Narrative* Problem Noted Date Diagnosed Date Resolved Date Positive GBS test 10/24/2020 03/27/2021 Overview: 10/22/20- GBS positive. 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 8 Iron deficiency anemia 03/20/201707/25 Overview: 07/05/17 - Patient scheduled to get IV iron on 06/23/17 - [facility] 05/27/17 - getting IV iron, repeat cbc & iron studies in 1 month per - [facility] 05/23/17- heme consult for possible IV iron - Positive serology for syphilis 02/14/2017 07/25/2020 Overview: 04/10/17: NEGATIVE 03/21/17 - stable testing, repeat 6 weeks - KJ 02/14/17 - likely false positive as confirmatory tests are negative, similar results last , repeat IgG in 6 weeks - Short interval between pregn ancies affecting , antepartum 02/13/2017 09/19/2017 Overview: 02/13/2017 Patient's last delivery was 08/2016. This is a surprise . The FOB is 19 years old and is involved. He is the father of her previous child. TKRN History of depression 02/13/2017 09/19/2017 Overview: 02/13/2017 Pt has a history of depression treated by Dr Torres. . She has been off medication for 2 months . She believes she is doing well off medication. Discussed increased risks of depression during and and importance of reporting the development or worsening of symptoms should they occur.Pt denies ever having any suicidal thoughts or tendencies or thoughts of hurting others. TKRN Pelvic pain in , antepartum 02/13/2017 09/19/2017 Overview: 02/13/2017Patient has noted pelvic cramping on the right side for the past 2 days that she rates a 5. Denies any bleeding. To see Dr Pereira today for evaluation. TKRN History of infection 02/13/2017 018 Overview: 02/13/2017Patient currently on antibiotics for sinus infection. TKRN Acute gallstone pancreatitis 05/06/2016 02/13/2017 Overview: - S/p lap dominick 2014 had pancreatitis at that time. Sees GI at [facility], dilated common bile duct. Barb Dickey MD - S/p ERCP 05/16/2016 Pruritus of in second trimester 05/06/2016 05/10/2016 Overview: Ordered bile acids Asymptomatic bacteriuria dur ing in first trimester 02/29/2016 02/13/2017 Abnormal laboratory test 02/27/2016 Overview: Low Equivocal anticardiolipin antibody - repeat testing beginning of May 2016 Barb Dickey MD Gastroesophageal reflux in 02/26/2016 02/13/2017 Overview: Zantac ordered High risk teen in third trimester 02/08/2016 02/13/2017 Overview: Boy on us- [place] Nausea/vomiting in 02/08/2016 02/13/2017 Overview: February 26, 2016 ordered bernie Dickey MD 02/08/2016Patient is complaining of nausea in . She denies any vomiting. Recommended Vitamin B6. Advised patient to call/come in if she is unable to keep any food or fluids down in a 24-hour period. 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 02/13/2017 Overview: 12/30/14 - still weakly positive at 0.9, confirmatory tests remain negative, again c/w false positive, consider repeat testing in 2-3 months - 11/22/14 - syphilis IgG positive at 1.0, RPR & FTA-Abs negative, c/w false positive, needs repeat syphilis IgG in 2-3 months - Teen 11/16/2014 02/08/2016 Overview: 11/16/14 - mother is supportive, FOB is 17 & is involved - Constipation 11/08/2011 11/16/2014 documented as of this encounter (statuses as of 06/25/2023) [facility]04[facility] History of Past illness Narrative* Problem Noted Date Diagnosed Date Resolved Date Positive GBS test 10/24/2020 03/27/2021 Overview: 10/22/20- GBS positive. 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 8 Iron deficiency anemia 03/20/201707/25 Overview: 07/05/17 - Patient scheduled to get IV iron on 06/23/17 - [facility] 05/27/17 - getting IV iron, repeat cbc & iron studies in 1 month per - [facility] 05/23/17- heme consult for possible IV iron - KJ Positive serology for syphilis 02/14/2017 07/25/2020 Overview: 04/10/17: NEGATIVE 03/21/17 - stable testing, repeat 6 weeks - KJ 02/14/17 - likely false positive as confirmatory tests are negative, similar results last , repeat IgG in 6 weeks - KJ Short interval between pregn ancies affecting , antepartum 02/13/2017 09/19/2017 Overview: 02/13/2017 Patient's last delivery was 08/2016. This is a surprise . The FOB is 19 years old and is involved. He is the father of her previous child. TKRN History of depression 02/13/2017 09/19/2017 Overview: 02/13/2017 Pt has a history of depression treated by Dr Torres. . She has been off medication for 2 months . She believes she is doing well off medication. Discussed increased risks of depression during and and importance of reporting the development or worsening of symptoms should they occur.Pt denies ever having any suicidal thoughts or tendencies or thoughts of hurting others. TKRN Pelvic pain in , antepartum 02/13/2017 09/19/2017 Overview: 02/13/2017Patient has noted pelvic cramping on the right side for the past 2 days that she rates a 5. Denies any bleeding. To see Dr Pereira today for evaluation. TKRN History of infection 02/13/2017 018 Overview: 02/13/2017Patient currently on antibiotics for sinus infection. TKRN Acute gallstone pancreatitis 05/06/2016 02/13/2017 Overview: - S/p lap dominick 2014 had pancreatitis at that time. Sees GI at [facility], dilated common bile duct. Barb Dickey MD - S/p ERCP 05/16/2016 Pruritus of in second trimester 05/06/2016 05/10/2016 Overview: Ordered bile acids Asymptomatic bacteriuria dur ing in first trimester 02/29/2016 02/13/2017 Abnormal laboratory test 02/27/2016 Overview: Low Equivocal anticardiolipin antibody - repeat testing beginning of May 2016 Barb Dickey MD Gastroesophageal reflux in 02/26/2016 02/13/2017 Overview: Zantac ordered High risk teen in third trimester 02/08/2016 02/13/2017 Overview: Boy on - [place] Nausea/vomiting in 02/08/2016 02/13/2017 Overview: February 26, 2016 ordered phenergan Barb Dickey MD 02/08/2016Patient is complaining of nausea in . She denies any vomiting. Recommended Vitamin B6. Advised patient to call/come in if she is unable to keep any food or fluids down in a 24-hour period. 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 02/13/2017 Overview: 12/30/14 - still weakly positive at 0.9, confirmatory tests remain negative, again c/w false positive, consider repeat testing in 2-3 months - 11/22/14 - syphilis IgG positive at 1.0, RPR & FTA-Abs negative, c/w false positive, needs repeat syphilis IgG in 2-3 months - Teen 11/16/2014 02/08/2016 Overview: 11/16/14 - mother is supportive, FOB is 17 & is involved - Constipation 11/08/2011 11/16/2014 documented as of this encounter (statuses as of 07/04/2023) [facility] History of Past illness Narrative* Problem Noted Date Diagnosed Date Resolved Date Positive GBS test 10/24/2020 03/27/2021 Overview: 10/22/20- GBS positive. 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 8 Iron deficiency anemia 03/20/201707/25 Overview: 07/05/17 - Patient scheduled to get IV iron on 06/23/17 - [facility] 05/27/17 - getting IV iron, repeat cbc & iron studies in 1 month per - [facility] 05/23/17- heme consult for possible IV iron - KJ Positive serology for syphilis 02/14/2017 07/25/2020 Overview: 04/10/17: NEGATIVE 03/21/17 - stable testing, repeat 6 weeks - KJ 02/14/17 - likely false positive as confirmatory tests are negative, similar results last , repeat IgG in 6 weeks - KJ Short interval between pregn ancies affecting , antepartum 02/13/2017 09/19/2017 Overview: 02/13/2017 Patient's last delivery was 08/2016. This is a surprise . The FOB is 19 years old and is involved. He is the father of her previous child. TKRN History of depression 02/13/2017 09/19/2017 Overview: 02/13/2017 Pt has a history of depression treated by Dr Torres. . She has been off medication for 2 months . She believes she is doing well off medication. Discussed increased risks of depression during and and importance of reporting the development or worsening of symptoms should they occur.Pt denies ever having any suicidal thoughts or tendencies or thoughts of hurting others. TKRN Pelvic pain in , antepartum 02/13/2017 09/19/2017 Overview: 02/13/2017Patient has noted pelvic cramping on the right side for the past 2 days that she rates a 5. Denies any bleeding. To see Dr Pereira today for evaluation. TKRN History of infection 02/13/2017 018 Overview: 02/13/2017Patient currently on antibiotics for sinus infection. TKRN Acute gallstone pancreatitis 05/06/2016 02/13/2017 Overview: - S/p lap dominick 2014 had pancreatitis at that time. Sees GI at [facility], dilated common bile duct. Barb Dickey MD - S/p ERCP 05/16/2016 Pruritus of in second trimester 05/06/2016 05/10/2016 Overview: Ordered bile acids Asymptomatic bacteriuria dur ing in first trimester 02/29/2016 02/13/2017 Abnormal laboratory test 02/27/2016 Overview: Low Equivocal anticardiolipin antibody - repeat testing beginning of May 2016 Barb Dickey MD Gastroesophageal reflux in 02/26/2016 02/13/2017 Overview: Zantac ordered High risk teen in third trimester 02/08/2016 02/13/2017 Overview: Boy on - [place] Nausea/vomiting in 02/08/2016 02/13/2017 Overview: February 26, 2016 ordered phenergan Barb Dickey MD 02/08/2016Patient is complaining of nausea in . She denies any vomiting. Recommended Vitamin B6. Advised patient to call/come in if she is unable to keep any food or fluids down in a 24-hour period. 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 02/13/2017 Overview: 12/30/14 - still weakly positive at 0.9, confirmatory tests remain negative, again c/w false positive, consider repeat testing in 2-3 months - 11/22/14 - syphilis IgG positive at 1.0, RPR & FTA-Abs negative, c/w false positive, needs repeat syphilis IgG in 2-3 months - Teen 11/16/2014 02/08/2016 Overview: 11/16/14 - mother is supportive, FOB is 17 & is involved - Constipation 11/08/2011 11/16/2014 documented as of this encounter (statuses as of 07/05/2023) [facility] Rojelio Bullock [facility] November 25, 2023 2:37am Note Date/Time November 25, 2023 12:52a [facility] Medical Records Department [address] [place] [address] Emergency Department Summary 11/25/23 MR#: [id number] Acct: [id number] Name: MARIANNE SAUCEDO UNRULY Rep #:[id number] : 2000 23 From: Rojelio Bullock MD PCP: [facility] [place] Status:REG ER Location: ED HPI History of Present Illness Chief Complaint: Cold Sx Informant: patient Narrative Narrative: Over the course of this past day patient has developed a nonproductive cough, fever up to 102, mild gradual in onset headache without neck stiffness or confusion, and chest tightness and wheezing. Only exposure to illness that she knows of is her son who recently was diagnosed with croup. [place] No history of asthma. [facility] Medical History depression Home Medications albuterol sulfate 90 mcg/actuation aerosol inhaler (Ventolin HFA) 1 - 2 puff inhalation Q4H PRN PRN Wheezing ##1 11/25/23 [Rx Last Taken Unknown] Allergy/AdvReac Type Severity Reaction Status Date / Time No Known Allergies Allergy Verified 11/25/23 00:27 Surgical History History of surgery Social History Smoking Status: Never smoker ROS ROS ED Constitutional Constitutional ED: Reports chills and fever(s) ENT ENT ED: Denies ear pain, nasal congestion, rhinorrhea or sore throat Cardiovascular Cardiovascular: Reports chest pain; Denies palpitations Respiratory/Chest Respiratory/Chest: Reports cough and dyspnea; Denies sputum Gastrointestinal Gastrointestinal: Denies abdominal pain, diarrhea, nausea or vomiting Genitourinary Genitourinary ED: Denies dysuria or hematuria Musculoskeletal Musculoskeletal: Denies myalgias or neck pain Integumentary Denies abscess or rash Neurologic Neurologic: Reports headache(s); Denies paresthesias or weakness Psychiatric Psychiatric: Denies depression or suicidal thoughts Endocrine Endocrinology: Denies polydipsia or polyuria EXAM Physical Exam Const Vital Signs: 11/25/23 00:28 11/25/23 00:28 Temperature 98.2 F Temperature Source Temporal Pulse Rate 89 Respiratory Rate 18 Respiratory Effort Normal Blood Pressure 118/65 Blood Pressure Mean 82 Pulse Ox 95 Positive well nourished and well developed Constitutional Narrative: Well-appearing, conversive in full sentences General Appearance ED: well developed and NAD HEENT Reports moist mucous membranes normocephalic and atraumatic Throat: Negative for posterior oropharynx abnormal Eyes PERRL and EOMs intact bilaterally Neck no lymphadenopathy, supple and no meningeal signs Resp normal respiratory effort and clear to auscultation bilaterally Cardio no murmurs Rate: regular rate; Negative for tachycardic Rhythm: regular rhythm Neuro oriented x3, CN's II-XII intact bilaterally and no sensory deficits noted Sensorium / Orientation: alert Motor Exam: strength 5/5 throughout Psych mental status grossly normal Skin Lesions: no lesions Rashes: no rashes MDM MDM MDM Narrative Medical decision making narrative: 2 view chest x-ray negative for pneumonia on my interpretation, and COVID/influenza/RSV swab is negative. Patient is not wheezing right now. Her vital signs are normal and her oxygenation is normal. She is well-appearing. [place] not think she needs antibiotics for this illness, but I think prescribing heralbuterol MDI would be reasonable for what is likely viral wheezy bronchitis. She is comfortable with that plan. Radiography Diagnostic Testing: Clinical Impression(s) from Imaging Studies Chest X-Ray 11/25/23 00:50 IMPRESSION: No radiographic evidence of acute cardiopulmonary disease. Electronically Signed: Judson Caretr MD at 2:13 EDT Reading Location ID and State: [facility] / [place] , Service support , Discharge Plan Triage Chief Complaint: Cold Sx ED Provider: Rojelio Bullock Dx/Rx/DC Orders Clinical Impression: Acute wheezy bronchitis Instructions: ED Bronchitis with Wheezing (Adult) Prescriptions: New albuterol sulfate [Ventolin HFA] 90 mcg/actuation HFA aerosol inhaler 1 - 2 puff inhalation Q4H PRN PRN (Reason: Wheezing) Qty: 1 0RF Primary Care Provider: Marcelo Barraza NP Referrals: Francesca Gill MD [Non-Staff] - What to do if you have Problems For any increased pain, shortness of breath, bleeding, nausea or vomiting, chestpain, or any unexpected problems, contact your Primary Care Provider. Call [facility] ([phone]) or report to the closest Emergency Room. Call 911 if necessary. 11/25/23236 <Electronically signed by Rojelio Bullock MD> Cosigner Signature (if applicable): CC: FOOD MIXER REPAIRER-C Marcelo Barraza ~ Signed [facility] Work Phone: Discharge summary Author Rojelio Bullock [facility] Note Date/Time December 06, 2024 7:39a m [facility] Medical Records Department [address] [place] [address] Emergency Department Summary 12/06/24 MR#: [id number] Acct: [id number] Name: MARIANNE SAUCEDO UNRULY Rep #:[id number] : 2000 From: Rojelio Bullock MD PCP: ONEIL Hoyos Status:REG ER Location: ED ADDENDUM by Dr. Rojelio Bullock MD on 12/06/24 at 0739 COVID/flu/RSV is negative. 12/06/24 0739<Electronically signed by Rojelio Bullock MD> Cosigner Signature (if applicable): cc: ONEIL Barraza ~* Signed HPI History of Present Illness Chief Complaint: General Illness Informant: patient Narrative Narrative: 24-year-old female 3 days total of respiratory illness started with runny nose, congestion, sore throat, subjective fevers. She developed headache, some chest tightness and wheezing this morning that is not as bad right now for no particular reason, and she had 1 bout of posttussive emesis. No nausea or abdominal pain or diarrhea. She does not have a history of asthma was concernedthat she was wheezing and had chest tightness. [facility] Medical History Physical exam, pre-employment depression Home Medications ?Medication ?Instructions ?Recorded ?Last Taken ?Type albuterol sulfate 90 mcg/actuation 1 - 2 puff inhalati on Q4H PRN PRN 11/25/23 Unknown Rx aerosol inhaler (Ventolin HFA) Wheezing ##1 Allergy/AdvReac Type Severity Reaction Status Date / Time No Known Allergies Allergy Verified 12/06/24 05:47 Family History no significant family his Surgical History History of surgery Social History Smoking Status: Never smoker ROS [facility] ED Constitutional Constitutional ED: Reports fever(s) and subjective; Denies chills ENT ENT ED: Reports nasal congestion, rhinorrhea and sore throat; Denies ear pain Cardiovascular Cardiovascular: Denies chest pain or palpitations Respiratory/Chest Respiratory/Chest: Reports cough, dyspnea and wheezing; Denies sputum Gastrointestinal Gastrointestinal: Reports vomiting; Denies abdominal pain, diarrhea or nausea Genitourinary Genitourinary ED: Denies dysuria or hematuria Musculoskeletal Musculoskeletal: Denies myalgias or neck pain Integumentary Denies abscess or rash Neurologic Neurologic: Reports headache(s); Denies paresthesias or weakness Psychiatric Psychiatric: Denies depression or suicidal thoughts Endocrine Endocrinology: Denies polydipsia or polyuria EXAM Physical Exam Const Vital Signs: 12/06/24 05:47 12/06/24 05:47 Temperature 98.1 F Temperature Source Oral Pulse Rate 78 Respiratory Rate 16 Respiratory Effort Normal Respiratory Pattern Normal Blood Pressure 131/71 H Blood Pressure Mean 91 Pulse Ox 97 Oxygen Delivery Method Room Air Positive well nourished and well developed Constitutional Narrative: Well-appearing General Appearance ED: well developed and NAD HEENT Reports TM's clear and moist mucous membranes HEENT Narrative: No trismus. No erythema or exudates in throat. normocephalic and atraumatic Tympanic Membrane ED: Yes TM's clear Throat: Negative for posterior oropharynx abnormal Eyes PERRL and EOMs intact bilaterally Neck no lymphadenopathy, supple and no meningeal signs Resp normal respiratory effort and clear to auscultation bilaterally Cardio no murmurs Rate: regular rate Rhythm: regular rhythm GI normal to inspection, nondistended, normoactive bowel sounds, non-tender and non-distended Neuro oriented x3, CN's II-XII intact bilaterally and no sensory deficits noted Sensorium / Orientation: alert Motor Exam: strength 5/5 throughout Psych mental status grossly normal Skin Lesions: no lesions Rashes: no rashes MDM MDM MDM Narrative Medical decision making narrative: Right now patient's lungs are clear, she is not having tightness, and her vital signs are normal she has no tachycardia or hypoxemia. Her exam is very benign, inconsistent with strep throat, mononucleosis, and pneumonia. Obtain a two-viewchest x-ray in order to rule out pneumonia, it is normal on my interpretation. COVID/influenza/RSV swab is sent and presumably will be negative given very low prevalence of disease with regards to all 3 in the area recently. Likely viral etiology. I am having respiratory give her an albuterol inhaler along with instructions for use, no steroids indicated. Lab Data Attestation: I reviewed the patient's lab results. Radiography Diagnostic Testing: Clinical Impression(s) from Imaging Studies Chest X-Ray 12/06/24 06:10 IMPRESSION: No evidence of acute disease. Reading Location: [facility] Discharge Plan Triage Chief Complaint: General Illness ED Provider: Rojelio Bullock Dx/Rx/DC Orders Clinical Impression: Acute wheezy bronchitis Instructions: ED Bronchitis with Wheezing (Adult) Prescriptions: Continued albuterol sulfate [Ventolin HFA] 90 mcg/actuation HFA aerosol inhaler 1 - 2 puff inhalation Q4H PRN PRN (Reason: Wheezing) Qty: 1 0RF Primary Care Provider: Marcelo Barraza NP Referrals: Marcelo Barraza NP, FOOD MIXER REPAIRER-C [Primary Care Provider] - 1 Week if not improving Print Language: Ukrainian Disposition Disposition: Home, Self Care What to do if you have Problems For any increased pain, shortness of breath, bleeding, nausea or vomiting, chestpain, or any unexpected problems, contact your Primary Care Provider. Call [facility] ([phone]) or report to the closest Emergency Room. Call 911 if necessary. 12/06/24 0632 <Electronically signed by Rojelio Bullock MD> Cosigner Signature (if applicable): CC: FOOD MIXER REPAIRER-C Marcelo Barraza ~ Signed [facility] Work Phone: Discharge summary Author Denzel Olmstead [facility] Note Date/Time December 15, 2024 6:42a m [facility] Medical Records Department [address] [place] [address] Emergency Department Summary 12/15/24 MR#: [id number] Acct: [id number] Name: MARIANNE SAUCEDO UNRULY Rep #:[id number] : 2000 24 From: Denzel Mays PCP: ONEIL Hoyos Status:PRE ER Location: ED HPI History of Present Illness Chief Complaint: [facility] Medical History Physical exam, pre-employment depression Home Medications ?Medication ?Instructions ?Recorded ?Last Taken ?Type albuterol sulfate 90 mcg/actuation 1 - 2 puff inhalati on Q4H PRN PRN 11/25/23 Unknown Rx aerosol inhaler (Ventolin HFA) Wheezing ##1 prednisone 20 mg tablet 20 mg PO DAILY 5 days #5 tab s 12/15/24 Unknown Rx Allergy/AdvReac Type Severity Reaction Status Date / Time No Known Allergies Allergy Verified 12/15/24 06:23 Surgical History History of surgery Social History Smoking Status: Never smoker EXAM Physical Exam Const Vital Signs: 12/15/24 06:23 12/15/24 06:24 Temperature 97.7 F L Temperature Source Oral Pulse Rate 73 Respiratory Rate 18 Respiratory Effort Normal Non-Labored Respiratory Pattern Normal Blood Pressure 136/62 H Blood Pressure Mean 86 Pulse Ox 99 Oxygen Delivery Method Room Air [facility] MDM Narrative Medical decision making narrative: HISTORY OF PRESENT ILLNESS: Chief complaint: Chest tightness 24-year-old female presents with chest tightness in the setting of recent viral URI. Patient denies chest pain or any reported chest tightness as per triage note. States she finds that she feels like she is having difficulty getting a full breath. Denies cough. Denies fever. Does note some ongoing congestion. Notes an inhaler that helps her symptoms. Denies leg swelling denies bleeding diathesis. The patient denies recent surgery in the last 4 weeks or immobilization in the last 3 days, denies previous diagnosis of DVT or PE, hemoptysis, unilateral leg swelling or malignancy with treatment the last 6 months or palliative. No estrogen use noted. Patient denies sudden onset of pain, no tearing sensation, no migratory symptoms, no new numbness, weakness or loss of sensation. Patient denies family history or personal history of Connective tissue disorders (Marfan's Syndrome, Analia Danlos etc) REVIEW OF SYSTEMS: Pertinent positives: Difficulty breathing Pertinent negatives: As per HPI PHYSICAL EXAM: Nursing triage notes reviewed, Vital signs reviewed Constitutional: please see [facility] HENT: MMM Eyes: Pupils equal round and reactive to light, Extraocular muscles intact Neck: No stridor, no JVD, full neck ROM Lungs: Clear to auscultation, No wheezing or rales. No increased work of breathing, no conversational dyspnea, no accessory muscle use, no nasal flaring. No respiratory distress noted Heart: Regular rate and rhythm, No murmurs, No rubs and No gallops, 2+ distal pulses (radial, femoral, posterior tibial) in all extremities Abdomen: Soft, there is no tenderness, rigidity, rebound or guarding, no obviousperitoneal signs, no palpable pulsatile abdominal masses, no auscultated abdominal bruit : No CVAT Extremities: No edema Neuro: No new focal neurological deficits, cranial nerves II through XII intact,5/5 strength in all present extremities. Intact sensation to light touch in all present extremities, 2+ reflexes bilateral patella tendons. Skin: No rash or lesions noted MEDICAL DECISION MAKING: Chief Complaint: please see HPI External records reviewed: Reviewed prior imaging studies: Reviewed x-ray from 12/06/2024 which showed no evidence of pneumonia Factors affecting care: none Social determinants of health: denies drug use History obtained from others: none Consults: none [facility] Narrative: The patient was initially hemodynamically stable, afebrile and nontoxic- appearing. Exam without focal lung findings. No for consolidative process. Noincreased work of breathing, no medical legal investigator muscle use, no belly breathing. No obvious wheezing no lower extremity edema. No stigmata of VTE or CHF on initialexam I considered the following differential diagnosis: Pneumonia, asthma exacerbation While I considered pneumonia the patient did have a fever, not hypoxic and no focal lung findings suggest pneumonia in addition to that she had a negative x-ray within the last 2 weeks with similar symptoms. And lieu of chest x-ray opted for an EKG, ambulatory pulse ox. ALL IMAGES (IF OBTAINED) HAVE BEEN PERSONALLY REVIEWED AND INTERPRETED BY MYSELF. EKG with normal sinus rhythm rate of 68, no axis, no intervals, no STEMI The synthesis of the patient's history, physical exam, labs, images suggest no acute life or limb threatening etiology. The patient had no lily chest pain orshortness of breath but just noted feeling of air hunger or dyspnea. Here she ambulated with a pulse ox 95% with no vital sign abnormalities. No clear explanation for her symptoms however is unlikely be life-threatening given her stable vitals, reassuring exam and unremarkable historical factors. She received a short course of prednisone to improve inflammatory changes associatedwith possible underlying bronchitis. The patient and/or family, caregivers express understanding. The patient and/orfamily, caregivers agrees with the plan. Shared decision making: I will have a discussion with the patient and or visitors regarding risk/benefits of further testing or admission. They will be made aware of of the risk/benefits inherent in this decision they will be given the opportunity to voice understanding. Total critical care time today provided was at least 0 minutes. This excludes separately billable procedures. Critical care time (if documented) is secondary to the patient having high probability of clinically significant/life threatening deterioration in the patient's condition which required my urgent intervention. Impression: 1. Dyspnea 2. History of bronchitis Dispo: Discharge home This note was generated with Badoo dictation software. It may contain incorrectwords, spelling, and punctuation that were not noted in review of the chart prior to signing. Discharge Plan Triage Chief Complaint: Cold Sx ED Provider: Denzel Olmstead Dx/Rx/DC Orders Clinical Impression: Acute dyspnea Instructions: ED Bronchitis, No Antibiotic (Adult) Prescriptions: New prednisone 20 mg tablet 20 mg PO DAILY 5 Days Qty: 5 0RF No Action albuterol sulfate [Ventolin HFA] 90 mcg/actuation HFA aerosol inhaler 1 - 2 puff inhalation Q4H PRN PRN (Reason: Wheezing) Qty: 1 0RF Primary Care Provider: Marcelo Barraza NP Referrals: Marcelo Barraza NP, FOOD MIXER REPAIRER-C [Primary Care Provider] - Activity Restrictions/Additional Instructions: Thank you for trusting us with your care today! Your presentation may be consistent with lingering inflammation of your lungs possibly bronchitis. You are prescribed steroids that with inflammation. Please take steroids until they are complete Please take Tylenol (2 pills, 650 mg), ibuprofen (2 pills, 400 mg) every 6 hoursas needed for pain and fever control. Please return to the emergency department if your symptoms change or worsen. Specifically develop chest pain, increasing shortness of breath, leg swelling orif you lose consciousness. Please follow with your primary care physician for further outpatient evaluationand management. Print Language: Ukrainian Disposition Disposition: Home, Self Care What to do if you have Problems For any increased pain, shortness of breath, bleeding, nausea or vomiting, chestpain, or any unexpected problems, contact your Primary Care Provider. Call [facility] ([phone]) or report to the closest Emergency Room. Call 911 if necessary. 12/15/24 0642 <Electronically signed by Denzel Olmstead DO> Cosigner Signature (if applicable): CC: ONEIL Barraza ~ Signed [facility] Work Phone: Evaluation note* Diagnosis Cough- Primary Viral syndrome Unspecified viral infection, in conditions classified elsewhere and of unspecified site Sore throat Acute pharyngitis Nose congestion Other diseases of nasal cavity and sinuses [facility] [place] [facility] Diagnosis Recurrent cold sores- Primary Herpes simplex without mention of complication [facility] [place] [facility]* Diagnosis Recurrent cold sores Herpes simplex without mention of complication [facility] [place] [facility]* Diagnosis Recurrent cold sores Herpes simplex without mention of complication [facility] [place] [facility]* Diagnosis Right wrist pain- Primary Pain in joint, forearm documented [facility] [place] [facility]* Diagnosis Encounter for gynecological examination without abnormal finding- Primary Routine gynecological examination Vaginal odor Unspecified symptom associated with female genital organs Vaginal itching Pruritus of genital organs documented [facility] [place] [facility]* Diagnosis Encounter for counseling regarding contraception- Primary Encounter for IUD insertion Encounter for insertion of intrauterine contraceptive device documented [facility] [place] [facility]* Diagnosis Encounter for IUD insertion- Primary Encounter for insertion of intrauterine contraceptive device documented [facility] [place] [facility]* Diagnosis Blister of lip- Primary documented in this encounter [facility] noteNo assessment information availableWKet[facility] Work Phone: Evaluation note* Diagnosis Bronchitis- Primary Bronchitis, not specified as acute or chronic documented [facility] this encounter [facility] [place] [facility]* Diagnosis Rectal bleeding- Primary Hemorrhage of rectum and anus Chronic constipation Unspecified constipation Contact dermatitis, unspecified contact dermatitis type, unspecified trigger documented [facility] this [facility] [place] [facility]* Diagnosis Right wrist pain Pain in joint, forearm documented [facility] this [facility] [place] [facility]* Diagnosis Vaginal discharge- Primary Leukorrhea, not specified as infective Vaginal itching Pruritus of genital organs Vaginal odor Unspecified symptom associated with female genital organs Screening for cervical cancer Screening for malignant neoplasm of the cervix documented [facility] this [facility] [place] [facility]* Diagnosis Iron deficiency anemia, unspecified iron deficiency anemia type- Primary Intractable chronic migraine without aura and without status migrainosus Chronic migraine without aura, with intractable migraine, so stated, without mention of status migrainosus documented [facility] this [facility] [place] [facility]* Diagnosis Intractable chronic migraine without aura and without status migrainosus- Primary Chronic migraine without aura, with intractable migraine, so stated, without mention of status migrainosus documented [facility] this [facility] [place] [facility]* Diagnosis Sore throat- Primary Acute pharyngitis Rhinosinusitis Unspecified sinusitis (chronic) documented in this encounter [facility] note* Diagnosis Environmental allergies- Primary Other allergy, other than to medicinal agents Itchy eyes Other ill-defined disorder of eye Nasal congestion Other diseases of nasal cavity and sinuses Watery eyes Epiphora, unspecified as to cause Encounter for screening examination for other mental health and behavioral disorders Screening for depression documented in this encounter [facility] note* Diagnosis Sore throat- Primary Acute pharyngitis Viral URI with cough Acute upper respiratory infections of unspecified site [facility] [place] [facility]* Diagnosis Rhinoconjunctivitis- Primary Chronic rhinitis Allergic rhinitis due to mold Seasonal allergic rhinitis due to pollen Adverse food reaction, sequela Poor dentition Unspecified disorder of the teeth and supporting structures documented in this encounter [facility] note* Diagnosis Sore throat- Primary Acute pharyngitis documented in this encounter [facility] note* Diagnosis Diarrhea, unspecified type- Primary Diarrhea, unspecified type documented in this encounter [facility] note* Diagnosis Diarrhea, unspecified type documented [facility] [place] [facility]* Diagnosis Diarrhea, unspecified type- Primary documented in this encounter [facility] note* Diagnosis Family history of cancer- Primary Family history of unspecified malignant neoplasm documented in this encounter [facility] note* Diagnosis Family history of breast cancer- Primary Family history of malignant neoplasm of breast Family history of adrenal cancer Family history of other specified malignant neoplasm Family history of pancreatic cancer Family history of malignant neoplasm of gastrointestinal tract documented in this [facility] Additional Instructions Thank you for trusting us with your care today! Your presentation may be consistent with lingering inflammation of your lungs possibly bronchitis. You are prescribed steroids that with inflammation. Please take steroids until they are complete Please take Tylenol (2 pills, 650 mg), ibuprofen (2 pills, 400 mg) every 6 hours as needed for pain and fever control. Please return to the emergency department if your symptoms change or worsen. Specifically develop chest pain, increasing shortness of breath, leg swelling or if you lose consciousness. Please follow with your primary care physician for further outpatient evaluation and management.[facility] Work Phone: Reason for referral (narrative)* Diagnostic Procedure Only (Routine) - Closed Specialty Diagnoses / Procedures Referred By Cristiana t Referred To Contact XR IMAGING Diagnoses Right wrist pain Procedures XR WRIST GENERAL 3V PA/LAT/OBL RIGHT RADEX WRIST COMPLETE MINIMUM 3 VIEWS Sam Osborne APRN.CNP [address] [place] [address] Xr Imaging Referral ID Status Reason Start Date Expiration Date V isits Requested Visits Authorized [id number] Closed Auto-Generate d Referral 10/10/2022 11/09/2023 1 1 [facility] for referral (narrative)* Outpatient Procedure (Routine) - Pending Review Specialty Diagnoses / Procedures Referred By Cristiana velez Referred To Contact [facility] Diagnoses Encounter for IUD insertion Procedures INSERT INTRAUTERINE DEVICE INSERT INTRAUTERINE DEVICE Laura Rea APRN.CNM [address] [place] [address] [address] Referral ID Status Reason Start Date Expiration Date Visits Requested Visits Authorized [id number] Pending Review Auto-Generat ed Referral 06/04/2024 1 1 [facility] for referral (narrative)* Outpatient Procedure (Routine) - Pending Review Specialty Diagnoses / Procedures Referred By Cristiana t Referred To Contact [facility] Diagnoses Encounter for IUD insertion Procedures INSERT INTRAUTERINE DEVICE LEVONORGESTREL IU 52MG 5 YR INSERT INTRAUTERINE DEVICE Laura Rea APRN.CNM [address] [place] [address] [address] Referral ID Status Reason Start Date Expiration Date Visits Requested Visits Authorized [id number] Pending Review Auto-Generat ed Referral 06/25/2023 06/24/2024 1 1 [facility] for referral (narrative)* Diagnostic Procedure Only (Routine) - Closed Specialty Diagnoses / Procedures Referred By Contac t Referred To Contact XR IMAGING Diagnoses Right wrist pain Procedures XR WRIST GENERAL 3V PA/LAT/OBL RIGHT RADEX WRIST COMPLETE MINIMUM 3 VIEWS Sam Osborne APRN.CNP [address] [place] [address] [place] [address] Referral ID Status Reason Start Date Expiration Date V isits Requested Visits Authorized [id number] Closed Auto-Generate d Referral 10/10/2022 11/09/2023 1 1 [facility] for referral (narrative)No reason for referral information availableWKettering [facility] Work Phone: [facility] Narrative* Diagnostic Procedure Only (Routine) - Closed Specialty Diagnoses / Procedures Referred By Contac t Referred To Contact XR IMAGING Diagnoses Right wrist pain Procedures XR WRIST GENERAL 3V PA/LAT/OBL RIGHT RADEX WRIST COMPLETE MINIMUM 3 VIEWS Sam Osborne APRN.INDUSTRIAL RADIOGRAPHER [address] [place] [address] [place] [address] Referral ID Status Reason Start Date Expiration Date V isits Requested Visits Authorized [id number] Closed Auto-Generate d Referral 10/10/2022 11/09/2023 1 1 [facility] for visit Narrative* Diagnostic Procedure Only (Urgent) - Closed Specialty Diagnoses / Procedures Referred By Contac t Referred To Contact XR IMAGING Diagnoses Diarrhea, unspecified type Procedures XR ABDOMEN 1V SUPINE RADIOLOGIC EXAM ABDOMEN 1 VIEW Sam Osborne APRN.CNP [address] [place] [address] Phone: tel: fax: [place] [address] Referral ID Status Reason Start Date Expiration Date V isits Requested Visits Authorized [id number] Closed Auto-Generate d Referral 01/31/2025 03/02/2026 1 1 [facility] for visit Narrative* Consult, Test, Treat (Routine) - Closed Specialty Diagnoses / Procedures Referred By Contac t Referred To Contact Diagnoses Family history of cancer Procedures CONSULT TO MEDICAL GENETICS - CANCER MEDICAL GENETICS COUNSELING EACH 30 MINUTES Sam Osborne APRN.INDUSTRIAL RADIOGRAPHER [address] [place] [address] Phone: tel: fax: [facility] [place] [address] Referral ID Status Reason Start Date Expiration Date V isits Requested Visits Authorized [id number] Closed PCP Requested Referral Auto-Generated Referral 02/03/2025 02/03/2026 1 1 [facility] Summary Purpose Family History No Family History Records FoundNo Family History Records FoundNo Family History Records FoundNo Family History Records FoundNo Family History Records FoundNo Family History Records Found Advance Directives Documents on File Type Date Recorded Patient Senior Credit Officer Expl anation Advance Directive(s) 10/18/2021 2:27 PM Advance Directive Response Recorded Date/ Time Living Will No November 25, 2023 12 :28am Power of Greens Tier No November 25, 2023 12:28am Advance Directive Response Recorded Date/ Time Do you have a Healthcare Power of Greens Tier? No December 06, 2024 5:47am Advance Directive Response Recorded Date/ Time Do you have a Healthcare Power of Greens Tier? No December 06, 2024 5:47am Do you have a Healthcare Power of Greens Tier? No December 15, 2024 6:24am Medications Administered Section Inactive Administered Medications - up to 3 most recent administrations Medication Order MAR Action Action Date Dose Rate Site levonorgestrel 21 mcg/24 hours (8 yrs) 52 mg 1 Each intrauterine device (MIRENA) 1 Each, INTRAUTERINE, ONCE (UP TO 30 DAYS AMB), 1 dose, On Fri06/25/23 at 1400, Hazardous Potential Reproductive Risk Drug: Use appropriate PPE. Given 06/25/2023 2:09 PM EST 1 Each Other Chief Complaint and Reason for Visit Chief Complaint cold Chief Complaint Admit Date GENERAL ILLNESS December 06, 2024 5:46a m Chief Complaint Admit Date GENERAL ILLNESS December 06, 2024 5:46a m cold sx December 15, 2024 6:21a m Additional Source Comments INFORMATION SOURCE (unrecogn ized section and content) DATE CREATED AUTHOR 04/13/2019 Myke Leiva [facility] DATE CREATED AUTHOR AUTHOR'S ORGANIZ ATION 04/25/2019 [facility] DATE CREATED AUTHOR AUTHOR'S ORGANIZ ATION 11/09/2019 [facility] DATE CREATED AUTHOR AUTHOR'S ORGANIZ ATION 10/21/2021 [place] [facility] DATE CREATED AUTHOR AUTHOR'S ORGANIZ ATION 12/20/2024 [facility] DATE CREATED AUTHOR AUTHOR'S ORGANIZ ATION 02/04/2025 [facility] Source Comments (unrecognize d section and content) In the event this informatio n is protected by the Federal Confidentiality of Alcohol and Drug Abuse Patient Records regulations: The Federal rules restrict any use of the information to criminally investigate or prosecute any alcohol or drug abuse patient.[facility] the event this information is protected by the Federal Confidentiality of Alcohol and Drug Abuse Patient Records regulations: The Federal rules restrict any use of the information to criminally investigate or prosecute any alcohol or drug abuse patient.[facility] the event this information is protected by the Federal Confidentiality of Alcohol and Drug Abuse Patient Records regulations: The Federal rules restrict any use of the information to criminally investigate or prosecute any alcohol or drug abuse patient.[facility] the event this information is protected by the Federal Confidentiality of Alcohol and Drug Abuse Patient Records regulations: The Federal rules restrict any use of the information to criminally investigate or prosecute any alcohol or drug abuse patient.[facility] the event this information is protected by the Federal Confidentiality of Alcohol and Drug Abuse Patient Records regulations: The Federal rules restrict any use of the information to criminally investigate or prosecute any alcohol or drug abuse patient.[facility] the event this information is protected by the Federal Confidentiality of Alcohol and Drug Abuse Patient Records regulations: The Federal rules restrict any use of the information to criminally investigate or prosecute any alcohol or drug abuse patient.[facility] the event this information is protected by the Federal Confidentiality of Alcohol and Drug Abuse Patient Records regulations: The Federal rules restrict any use of the information to criminally investigate or prosecute any alcohol or drug abuse patient.[facility] the event this information is protected by the Federal Confidentiality of Alcohol and Drug Abuse Patient Records regulations: The Federal rules restrict any use of the information to criminally investigate or prosecute any alcohol or drug abuse patient.[facility] the event this information is protected by the Federal Confidentiality of Alcohol and Drug Abuse Patient Records regulations: The Federal rules restrict any use of the information to criminally investigate or prosecute any alcohol or drug abuse patient.[facility] the event this information is protected by the Federal Confidentiality of Alcohol and Drug Abuse Patient Records regulations: The Federal rules restrict any use of the information to criminally investigate or prosecute any alcohol or drug abuse patient.[facility] the event this information is protected by the Federal Confidentiality of Alcohol and Drug Abuse Patient Records regulations: The Federal rules restrict any use of the information to criminally investigate or prosecute any alcohol or drug abuse patient.[facility] the event this information is protected by the Federal Confidentiality of Alcohol and Drug Abuse Patient Records regulations: The Federal rules restrict any use of the information to criminally investigate or prosecute any alcohol or drug abuse patient.[facility] the event this information is protected by the Federal Confidentiality of Alcohol and Drug Abuse Patient Records regulations: The Federal rules restrict any use of the information to criminally investigate or prosecute any alcohol or drug abuse patient.[facility] the event this information is protected by the Federal Confidentiality of Alcohol and Drug Abuse Patient Records regulations: The Federal rules restrict any use of the information to criminally investigate or prosecute any alcohol or drug abuse patient.[facility] the event this information is protected by the Federal Confidentiality of Alcohol and Drug Abuse Patient Records regulations: The Federal rules restrict any use of the information to criminally investigate or prosecute any alcohol or drug abuse patient.[facility] the event this information is protected by the Federal Confidentiality of Alcohol and Drug Abuse Patient Records regulations: The Federal rules restrict any use of the information to criminally investigate or prosecute any alcohol or drug abuse patient.[facility] the event this information is protected by the Federal Confidentiality of Alcohol and Drug Abuse Patient Records regulations: The Federal rules restrict any use of the information to criminally investigate or prosecute any alcohol or drug abuse patient.[facility] the event this information is protected by the Federal Confidentiality of Alcohol and Drug Abuse Patient Records regulations: The Federal rules restrict any use of the information to criminally investigate or prosecute any alcohol or drug abuse patient.[facility] the event this information is protected by the Federal Confidentiality of Alcohol and Drug Abuse Patient Records regulations: The Federal rules restrict any use of the information to criminally investigate or prosecute any alcohol or drug abuse patient.[facility]stown[facility] the event this information is protected by the Federal Confidentiality of Alcohol and Drug Abuse Patient Records regulations: The Federal rules restrict any use of the information to criminally investigate or prosecute any alcohol or drug abuse patient.[facility] the event this information is protected by the Federal Confidentiality of Alcohol and Drug Abuse Patient Records regulations: The Federal rules restrict any use of the information to criminally investigate or prosecute any alcohol or drug abuse patient.[facility]stown[facility] the event this information is protected by the Federal Confidentiality of Alcohol and Drug Abuse Patient Records regulations: The Federal rules restrict any use of the information to criminally investigate or prosecute any alcohol or drug abuse patient.[facility] the event this information is protected by the Federal Confidentiality of Alcohol and Drug Abuse Patient Records regulations: The Federal rules restrict any use of the information to criminally investigate or prosecute any alcohol or drug abuse patient.[facility] the event this information is protected by the Federal Confidentiality of Alcohol and Drug Abuse Patient Records regulations: The Federal rules restrict any use of the information to criminally investigate or prosecute any alcohol or drug abuse patient.[facility] the event this information is protected by the Federal Confidentiality of Alcohol and Drug Abuse Patient Records regulations: The Federal rules restrict any use of the information to criminally investigate or prosecute any alcohol or drug abuse patient.[facility] the event this information is protected by the Federal Confidentiality of Alcohol and Drug Abuse Patient Records regulations: The Federal rules restrict any use of the information to criminally investigate or prosecute any alcohol or drug abuse patient.[facility] the event this information is protected by the Federal Confidentiality of Alcohol and Drug Abuse Patient Records regulations: The Federal rules restrict any use of the information to criminally investigate or prosecute any alcohol or drug abuse patient.[facility] the event this information is protected by the Federal Confidentiality of Alcohol and Drug Abuse Patient Records regulations: The Federal rules restrict any use of the information to criminally investigate or prosecute any alcohol or drug abuse patient.[facility]stownIn the event this information is protected by the Federal Confidentiality of Alcohol and Drug Abuse Patient Records regulations: The Federal rules restrict any use of the information to criminally investigate or prosecute any alcohol or drug abuse patient.[facility]stownIn the event this information is protected by the Federal Confidentiality of Alcohol and Drug Abuse Patient Records regulations: The Federal rules restrict any use of the information to criminally investigate or prosecute any alcohol or drug abuse patient.[facility]In the event this information is protected by the Federal Confidentiality of Alcohol and Drug Abuse Patient Records regulations: The Federal rules restrict any use of the information to criminally investigate or prosecute any alcohol or drug abuse patient.[facility]In the event this information is protected by the Federal Confidentiality of Alcohol and Drug Abuse Patient Records regulations: The Federal rules restrict any use of the information to criminally investigate or prosecute any alcohol or drug abuse patient.[facility]In the event this information is protected by the Federal Confidentiality of Alcohol and Drug Abuse Patient Records regulations: The Federal rules restrict any use of the information to criminally investigate or prosecute any alcohol or drug abuse patient.[facility]stownIn the event this information is protected by the Federal Confidentiality of Alcohol and Drug Abuse Patient Records regulations: The Federal rules restrict any use of the information to criminally investigate or prosecute any alcohol or drug abuse patient.[facility]stownIn the event this information is protected by the Federal Confidentiality of Alcohol and Drug Abuse Patient Records regulations: The Federal rules restrict any use of the information to criminally investigate or prosecute any alcohol or drug abuse patient.[facility]stownIn the event this information is protected by the Federal Confidentiality of Alcohol and Drug Abuse Patient Records regulations: The Federal rules restrict any use of the information to criminally investigate or prosecute any alcohol or drug abuse patient.[facility]stownIn the event this information is protected by the Federal Confidentiality of Alcohol and Drug Abuse Patient Records regulations: The Federal rules restrict any use of the information to criminally investigate or prosecute any alcohol or drug abuse patient.[facility]stownIn the event this information is protected by the Federal Confidentiality of Alcohol and Drug Abuse Patient Records regulations: The Federal rules restrict any use of the information to criminally investigate or prosecute any alcohol or drug abuse patient.[facility]stownIn the event this information is protected by the Federal Confidentiality of Alcohol and Drug Abuse Patient Records regulations: The Federal rules restrict any use of the information to criminally investigate or prosecute any alcohol or drug abuse patient.[facility] Reason for Visit (unrecogniz ed section and content) Reason Comments Cough stuffy nose sore thr oat, no fever or chills or body aches Reason Comments Mouth Sores Reason Onset Date Comments Refill Request 10/01/2022 Reason Comments Wrist Pain Reason Comments Results Reason Onset Date Comments Yearly Exam 10/31/2022 Reason Comments Contraception Reason Onset Date Comments Insertion Of IUD 06/25/2023 Specialty Diagnoses / Procedures Referred By Cristiana velez Referred To Contact [facility] Diagnoses Encounter for IUD insertion Procedures INSERT INTRAUTERINE DEVICE INSERT INTRAUTERINE DEVICE REMOVE INTRAUTERINE DEVICE Laura Rea APRN.JB [address] [place] [address] [facility] [address] [place] [id number] Referral ID Status Reason Start Date Expiration Date Visits Requested Visits Authorized [id number] Authorized Auto-Generat ed Referral 3 07/20/2023 2 2 Reason Comments Mouth/Lip Problem Blister on bottom li p x1 day Reason Comments Results HSV+ Reason Comments Cough Cough, congestion an d wheezing x 3 days Reason Comments Acute Visit Bloody stool Reason Comments Rectal Problem Reason Comments Vaginal Problem Reason Comments Headache X 2 days Reason Comments Insurance Authorization Reason Comments Sore Throat nasal congestion, dr campbell and nausea x 1 week Reason Comments Allergies Reason Comments Nasal Congestion Headache, runny nose , cough, x 3 daysFever last evening Reason Comments Allergic Rhinitis Environmental allerg ies Specialty Diagnoses / Procedures Referred By Contadela t Referred To Contact Allergy Diagnoses Environmental allergies Itchy eyes Nasal congestion Watery eyes Procedures CONSULT TO ALLERGY/IMMUNOLOGY OFFICE/OUTPATIENT [facility] 60 MINUTES Francesca Gill MD [address] [place] [address] Phone: tel: fax: Referral ID Status Reason Start Date Expiration Date V isits Requested Visits Authorized [id number] Closed PCP Requested Referral 11/25/2024 11/25/2025 1 1 Reason Comments Nasal Congestion Post nasal drainage causing cough x this am Reason Comments Diarrhea X 2 months Headache X 1 day Care Teams (unrecognized sec tion and content) Gaming 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 Relationship Specialty Start Date End Date Francesca Gill MD [address] [place] [address] PCP - General Family Practice 04/10/16 Gaming Worker Relationship Specialty Start Date End Date Francesca Gill MD [address] [place] [address] PCP - General Family Practice 04/10/16 Gaming Worker Relationship Specialty Start Date End Date Francesca Gill MD [address] [place] [address] PCP - General Family Medicine 04/10/16 Gaming Worker Relationship Specialty Start Date End Date Francesca Gill MD [address] [place] [address] PCP - General Family Medicine 04/10/16 Gaming Worker Relationship Specialty Start Date End Date Francesca Gill MD [address] [place] [address] PCP - General Family Medicine 04/10/16 Gaming Worker Relationship Specialty Start Date End Date Francesca Gill MD [address] [place] [address] PCP - General Family Medicine 04/10/16 Gaming Worker Relationship Specialty Start Date End Date Francesca Gill MD [address] [facility] [place] [address] PCP - General Family Medicine 04/10/16 Gaming Worker Relationship Specialty Start Date End Date Francesca Gill MD [address] [facility] [place] [address] PCP - General Family Medicine 04/10/16 Gaming Worker Relationship Specialty Start Date End Date Francesca Gill MD [address] [facility] [place] [address] PCP - General Family Medicine 04/10/16 Gaming Worker Relationship Specialty Start Date End Date Francesca Gill MD [address] [facility] [place] [address] PCP - General Family Medicine 04/10/16 Gaming Worker Relationship Specialty Start Date End Date Francesca Gill MD [address] [facility] [place] [address] PCP - General Family Medicine 04/10/16 Gaming Worker Relationship Specialty Start Date End Date Francesca Gill MD [address] [facility] [place] [address] PCP - General Family Medicine 04/10/16 Gaming Worker Relationship Specialty Start Date End Date Francesca Gill MD [address] [facility] [place] [address] PCP - General Family Medicine 04/10/16 Gaming Worker Relationship Specialty Start Date End Date Francesca Gill MD [address] [facility] [place] [address] PCP - General Family Medicine 04/10/16 Gaming Worker Relationship Specialty Start Date End Date Francesca Gill MD [address] [place] [address] PCP - General Family Medicine 04/10/16 Team Status: Active Member Role Status Dates Dr. Francesca Gill MD Family Provider Active Marcelo Barraza FOOD MIXER REPAIRER, FOOD MIXER REPAIRER-C Primary Care Provider Active Team Status: Inactive Member Role Status Dates Dr. Rojelio Bullock MD Emergency Provider Active Marcelo Barraza FOOD MIXER REPAIRER, FOOD MIXER REPAIRER-C Primary Care Provider Active Gaming Worker Relationship Specialty Start Date End Date Francesca Gill MD [address] [place] [address] PCP - General Family Medicine 04/10/16 Gaming Worker Relationship Specialty Start Date End Date Francesca Gill MD [address] [place] [address] PCP - General Family Medicine 04/10/16 Gaming Worker Relationship Specialty Start Date End Date Francesca Gill MD [address] [place] [address] PCP - General Family Medicine 04/10/16 Gaming Worker Relationship Specialty Start Date End Date Francesca Gill MD [address] [place] [address] PCP - General Family Medicine 04/10/16 Gaming Worker Relationship Specialty Start Date End Date Francesca Gill MD [address] [place] [address] PCP - General Family Medicine 04/10/16 Gaming Worker Relationship Specialty Start Date End Date Francesca Gill MD [address] [place] [address] PCP - General Family Medicine 04/10/16 Gaming Worker Relationship Specialty Start Date End Date Francesca Gill MD [address] [place] [address] PCP - General Family Medicine 04/10/16 Angy Avila APRN.INDUSTRIAL RADIOGRAPHER [address] [place] [address] Operating Engineer Family Medicine 06/27/24 Marcelo Barraza APRN.INDUSTRIAL RADIOGRAPHER [address] [place] [address] [facility]24 Gaming Worker Relationship Specialty Start Date End Date Francesca Gill MD [address] [place] [address] PCP - General Family Medicine 04/10/16 Angy Avila APRN.INDUSTRIAL RADIOGRAPHER [address] [place] [address] Operating Engineer Family Medicine 06/27/24 Macrelo Barraza APRN.INDUSTRIAL RADIOGRAPHER [address] [place] [address] Operating Engineer Family Medicine 07/06/24 Gaming Worker Relationship Specialty Start Date End Date Francesca Gill MD [address] [place] [address] PCP - General Family Medicine 04/10/16 Angy Avila APRN.INDUSTRIAL RADIOGRAPHER [address] [place] [address] Operating Engineer Family Medicine 06/27/24 Marcelo Barraza APRN.INDUSTRIAL RADIOGRAPHER [address] [facility] [place] [address] [facility] 07/06/24 Gaming Worker Relationship Specialty Start Date End Date Francesca Gill MD [address] [facility] [place] [address] PCP - General Family Medicine 04/10/16 Angy Avila, TRAFFIC CHIEF.INDUSTRIAL RADIOGRAPHER [address] [facility] [place] [address] Operating Engineer [facility] 06/27/24 Marcelo Barraza APRN.INDUSTRIAL RADIOGRAPHER [address] [facility] [place] [address] [facility] 07/06/24 Gaming Worker Relationship Specialty Start Date End Date Francesca Gill MD [address] [facility] [place] [address] PCP - General Family Medicine 04/10/16 Marcelo Barraza, TRAFFIC CHIEF.INDUSTRIAL RADIOGRAPHER [address] [facility] [place] [address] [facility] 07/06/24 Team Status: Active Member Role Status Dates Marcelo Barraza FOOD MIXER REPAIRER, FOOD MIXER REPAIRER-C Primary Care Provider Active Team Status: Inactive Member Role Status Dates Marcelo Barraza FOOD MIXER REPAIRER, FOOD MIXER REPAIRER-C Primary Care Provider Active Start: December 06, 2024 End: December 06, 2024 Dr. Rojelio Bullock MD Emergency Provider Active Start: December 06, 2024 End: December 06, 2024 Team Status: Inactive Member Role Status Dates Marcelo Barraza FOOD MIXER REPAIRER, FOOD MIXER REPAIRER-C Primary Care Provider Active Start: December 06, 2024 End: December 06, 2024 Dr. Rojelio Bullock MD Attending Provider Active Start: December 06, 2024 End: December 06, 2024 Dr. Rojelio Bullock MD Emergency Provider Active Start: December 06, 2024 End: December 06, 2024 Team Status: Inactive Member Role Status Dates Marcelo Barraza FOOD MIXER REPAIRER, FOOD MIXER REPAIRER-C Primary Care Provider Active Start: December 15, 2024 End: December 15, 2024 Dr. Denzel Olmstead DO Emergency Provider Active Start: December 15, 2024 End: December 15, 2024 Gaming Worker Relationship Specialty Start Date End Date Francesca Gill MD [address] [facility] [place] [address] PCP - General Family Medicine 04/10/16 Marcelo Barraza APRN.INDUSTRIAL RADIOGRAPHER [address] [facility] [place] [address] Operating Engineer Family Medicine 07/06/24 Gaming Worker Relationship Specialty Start Date End Date Francesca Gill MD [address] [facility] [place] [address] PCP - General Family Medicine 04/10/16 Marcelo Barraza APRN.INDUSTRIAL RADIOGRAPHER [address] [facility] [place] [address] Operating Engineer Family Medicine 07/06/24 Gaming Worker Relationship Specialty Start Date End Date Francesca Gill MD [address] [facility] [place] [address] PCP - General Family Medicine 04/10/16 Marcelo Barraza APRN.INDUSTRIAL RADIOGRAPHER [address] [facility] [place] [address] Operating Engineer Family [facility] 07/06/24 Gaming Worker Relationship Specialty Start Date End Date Francesca Gill MD [address] [facility] [place] [address] PCP - General Family Medicine 04/10/16 Marcelo Barraza APRN.INDUSTRIAL RADIOGRAPHER [address] [place] [address] Operating Engineer Family Medicine 07/06/24 Gaming Worker Relationship Specialty Start Date End Date Francesca Gill MD [address] [place] [address] PCP - General Family Medicine 04/10/16 Marcelo Barraza APRN.INDUSTRIAL RADIOGRAPHER [address] [place] [address] Operating Engineer [facility] 07/06/24 Gaming Worker Relationship Specialty Start Date End Date Francesca Gill MD [address] [place] [address] PCP - General Family Medicine 04/10/16 Marcelo Barraza APRN.INDUSTRIAL RADIOGRAPHER [address] [place] [address] Operating Engineer [facility] 07/06/24 Gaming Worker Relationship Specialty Start Date End Date Francesca Gill MD [address] [place] [address] PCP - General Family Medicine 04/10/16 Marcelo Barraza APRN.INDUSTRIAL RADIOGRAPHER [address] [place] [address] Operating Engineer Family [facility] 07/06/24 Gaming Worker Relationship Specialty Start Date End Date Francesca Gill MD [address] [place] [address] PCP - General Family [facility] 04/10/16 Marcelo Barraza APRN.INDUSTRIAL RADIOGRAPHER [address] [place], [place] [address] [facility] 07/06/24 Gaming Worker Relationship Specialty Start Date End Date Francesca Gill MD [address] [place], [place] [id number] PCP - General [facility] 04/10/16 Marcelo Barraza APRN.INDUSTRIAL RADIOGRAPHER [address] [place], [place] [id number] [facility] 07/06/24 Goals (unrecognized section and content) Goals may be documented in a n alternate sectionGoals may be documented in an alternate sectionGoals may be documented in an alternate section FOR RECORDS PERTAINING TO PATIENTS WHO ARE OR HAVE BEEN ENROLLED IN A CHEMICAL DEPENDENCY/SUBSTANCEABUSE PROGRAM, SOME INFORMATION MAY BE OMITTED. This clinical summary was aggregated from multiple sources. Caution should be exercised in using it in the provision of clinical care. This summary normalizes information from multiple sources, and as a consequence, information in this document may materially change the coding, format and clinical context of patient data. In addition, data may be omitted in some cases. CLINICAL DECISIONS SHOULD BE BASED ON THE PRIMARY CLINICAL RECORDS. [facility]. provides no warranty or guarantee of the accuracy or completeness of information in this document.
--- NOTE | 2025-02-07 01:30 | RAD_ITS ---
PROCEDURE: CHEST PA AND LATERAL 02/07/2025 REASON FOR EXAM: CHEST PAIN TECHNIQUE: CHEST PA AND LATERAL COMPARISON: 12/06/2024 FINDINGS: Normal heart size. Elevated right hemidiaphragm. Well inflated lungs. No consolidation, effusion, or pneumothorax. RAD/Chest PA and Lateral IMPRESSION: No acute chest findings Reading Location: [place] [address]
[2025-02-07 01:39] LABS: Anion Gap 12 (5-15); BUN 10 mg/dL (4-19); BUN/Creat Ratio 14.4 RATIO (10-20); Calcium,Total 9.1 mg/dL (7.6-11.0); Carbon Dioxide 21.3 mmol/L (21.0-32.0); Chloride 105 mmol/L (98-108); Estimated Creatinine Clearance 141.12 ml/min (50-250); Glucose 98 mg/dL (70-99); Potassium 3.7 mmol/L (3.3-5.1); Troponin T High Sensitivity < 6 ng/L (<=14)
[2025-02-07 02:10] VITALS: BP 111/70; PULSE 73; RESP 18; TEMP 36.7; O2SAT 100
== END 2025-02-07 02:14 | disposition home or self-care (01) ==
PROVIDERS: Emergency Provider Emergency Medicine; PCP Family Medicine; Visit Provider Emergency Medicine
DX: K21.9 Gastro-esophageal reflux disease without esophagitis (principal); Z87.891 Personal history of nicotine dependence; R06.09 Other forms of dyspnea; D72.829 Elevated white blood cell count, unspecified
CPT/HCPCS: 71046; 80048; 84484; 85025; 93005; 99284; A4216

== ENCOUNTER 2025-03-17 21:28 | Emergency (ER) | payer MEDICAID, SELFPAY ==
[2025-03-17 21:29] VITALS: BP 131/83; PULSE 99; RESP 16; TEMP 36.9; O2SAT 100; BMI 39.3
--- NOTE | 2025-03-17 21:48 | EX.ED.VIS.UR ---
HPI HPI - URI History of Present Illness Chief Complaint: Cold Sx Narrative Narrative: 24-year-old female with no significant past medical history presents with runny nose, cough and congestion that she has had for the last 2 days. She has had sick contacts at work. She works at [employer]. She denies any fevers or chills, no bodyaches. She had a cough that was productive of yellow-green sputum yesterday, but today is a dry cough. No sore throat. No exacerbating or alleviating factors. She states that her dad heard her wheezing across the room. While she states she is not having difficulty breathing at rest, she does get winded easily and may struggle with exertion. ROS ROS ED ROS Narrative Positive nasal congestion and runny nose, no sore throat, no fevers or chills. Positive cough. Mild dyspnea on exertion. Positive wheezing. [facility] Medical History Physical exam, pre-employment depression Home Medications ?Medication ?Instructions ?Recorded ?Last Taken ?Type pantoprazole 40 mg tablet,delayed 40 mg PO DAILY #14 tabs 02/07/25 Unknown Rx release Allergy/AdvReac Type Severity Reaction Status Date / Time No Known Allergies Allergy Verified 03/17/25 21:31 Surgical History Hx of tonsillectomy History of surgery Social History Smoking Status: Former smoker EXAM Physical Exam Narrative Exam Narrative: Afebrile. Vital signs noted. Nontoxic-appearing. Cardiovascular examination of is a regular rate and rhythm. Lungs are clear to auscultation bilaterally, but she has prolonged expiratory phase. The abdomen is soft and nontender with positive bowel sounds. HEENT examination shows airway patent, neck soft and supple without meningismus. Positive nasal congestion noted. Mild rhinorrhea. Const Vital Signs: 03/17/25 21:29 03/17/25 21:36 03/17/25 22:03 Temperature 98.4 F Temperature Source Temporal Pulse Rate 99 101 H Respiratory Rate 16 16 Respiratory Effort Normal Non-Labored Respiratory Pattern Normal Normal Blood Pressure 131/83 H Blood Pressure Mean 99 Pulse Ox 100 Oxygen Delivery Method Room Air 03/17/25 23:11 Temperature 97.3 F L Temperature Source Pulse Rate 92 Respiratory Rate 16 Respiratory Effort Respiratory Pattern Blood Pressure 118/70 Blood Pressure Mean 86 Pulse Ox 100 Oxygen Delivery Method MDM MDM MDM Narrative Medical decision making narrative: Differential diagnosis includes but not limited to viral URI/bronchitis versus pneumonia. I have low clinical suspicion for pneumothorax as she has equal breath sounds bilaterally, and her pulse ox is 100% on room air. She will be given an albuterol nebulizer treatment and chest x-ray in 2 views obtained. I did offer to swab her for COVID, influenza, and RSV, but told her treatment would be the same should she be positive, and she declined swabbing. Chest x-ray 2 views interpreted by myself independently shows no evidence of a pneumothorax or pneumonia. I do not feel antibiotics are indicated. I reviewed the radiology report which confirms my independent interpretation. Upon repeat examination she is resting comfortably on the cot. She was given an albuterol inhaler here in the emergency department after 2 puffs inhaled to use 1 to 2 puffs inhaled every 4-6 hours as needed for dyspnea/wheezing. She will follow-up with her primary care provider and take [id number] medications as needed. Return instructions to the emergency department were reviewed. Disposition is discharged home in stable condition. History & Record Review Discussion w/independent historian: Patient Additional record(s) reviewed:: Prior ED visit (Has been seen for dyspnea and wheezy bronchitis before and given albuterol MDI.) Radiography Diagnostic Testing: Clinical Impression(s) from Imaging Studies Chest X-Ray 03/17/25 22:34 IMPRESSION: No airspace consolidation or pleural effusion. Reading Location: [facility] Discharge Plan Triage Chief Complaint: Cold Sx ED Provider: Marko Chowdhury Dx/Rx/DC Orders Clinical Impression: Bronchitis, URI (upper respiratory infection) Instructions: Using an Inhaler, ED URI, Viral W/ Wheezing (Adult) Prescriptions: No Action pantoprazole 40 mg tablet,delayed release (DR/EC) 40 mg PO DAILY Qty: 14 0RF Stand Alone Forms: ED Work / School Excuse Primary Care Provider: Denver Gill Referrals: Denver Gill MD [Primary Care Provider] - 1 Week if not improving Activity Restrictions/Additional Instructions: Use the inhaler 1 to 2 puffs inhaled every 4-6 hours as needed for wheezing/dyspnea. [id number] medications as needed for fever and pain. Follow-up with your primary care provider in 1 week if not improving. Print Language: Kazakh Disposition Disposition: Home, Self Care
[2025-03-17 22:03] VITALS: PULSE 101; RESP 16
[2025-03-17] MEDS: Albuterol 2.5 MG/3 ML VIAL.NEB. INHALATION (22:03)
--- OUTSIDE RECORDS SUMMARY | 2025-03-17 22:09 | XMS RPT_ITS | CCD ---
Author Organization [facility] CliniSyky Care Team Providers Care Clerical Associate Name Role Phone JASMINA ALSTON DO Admitting Unavailable JASMINA ALSTON DO Attending Unavailable JASMINA ALSTON DO Primary Care Unavailable FRANCESCA GILL Consulting Unavailable FRANCESCA GILL Referring Unavailable PROVIDER, UNKNOWN Consulting Unavailable Francesca Gill MD Primary Care Provider Francesca Gill MD Primary Care Provider Francesca Gill MD Primary Care Provider [employer] SHIP FITTER.ROTATING EQUIPMENT SPECIALIST, Angy Unavailable Madi SHIP FITTER.ROTATING EQUIPMENT SPECIALIST, Marcelo Unavailable [place] SHIP FITTER.ROTATING EQUIPMENT SPECIALIST, Angy Unavailable Madi PHYSICAL THERAPY DIRECTOR-C, Marcelo Primary Care Provider Dr. Rojelio Bullock MD Emergency Provider Dr. Rojelio Bullock MD Attending Provider Dr. Denzel Olmstead DO Emergency Provider Dr. Denzel Olmstead DO Attending Provider Dr. Francesca Gill MD Primary Care Provider Madi PHYSICAL THERAPY DIRECTOR, Marcelo Primary Care Unavailable Swapnil Carrero Attending Unavailable Madi PHYSICAL THERAPY DIRECTOR, Marcelo Primary Care Unavailable Rojelio Bullock Attending Unavailable Denzel Olmstead Attending Unavailable Madi PHYSICAL THERAPY DIRECTOR, Marcelo Primary Care Unavailable Rojelio Bullock Attending Unavailable Francesca Gill Primary Care Unavailable SAM OSBORNE Referring Unavailable IRENA ESPINOZA Attending Unavailable FRANCESCA GILL Primary Care Unavailable JESENIA KRAMER Referring Unavailable FRANCESCA GILL Primary Care Unavailable YENY LYONS Referring Unavailable GILMA VILLEGAS Attending Unavailable GILMA VILLEGAS Admitting Unavailable ELDERBROCK, FRANCESCA Gisele Primary Care Unavailable ELDERBROCK, FRANCESCA Gisele Primary Care Unavailable NATYHANERMIAS, AMNICKHA Attending Unavailable ELDERBROCK, FRANCESCA D Referring Unavailable SAM OSBORNE Referring Unavailable ELDERBROCK, FRANCESCA Gisele Primary Care Unavailable ELDERBROCK, FRANCESCA Gisele Primary Care Unavailable JOB PEREIRA Attending Unavailable ELDERBROCK, FRANCESCA Gisele Primary Care Unavailable PAZHANISAMY, AMUDHA Referring Unavailable ELDERBROCK, FRANCESCA Gsiele Primary Care Unavailable KNSAM CORDOBA Referring Unavailable ELDERBROCK, FRANCESCA Gisele Primary Care Unavailable KNSAM CORDOBA Referring Unavailable ELDERBROCK, FRANCESCA Gisele Primary Care Unavailable KNSAM CORDOBA Referring Unavailable ELDERBROCK, FRANCESCA Gisele Primary Care Unavailable ELDERBROCK, FRANCESCA Gisele Referring Unavailable YENY LYONS Attending Unavailable ELDERBROCK, FRANCESCA Gisele Primary Care Unavailable ELDERBROCK, FRANCESCA Gisele Referring Unavailable ELDERBROCK, FRANCESCA Gisele Primary Care Unavailable DEBO NIELSON Attending Unavailable SAM OSBORNE Attending Unavailable ELDERBROCK, FRANCESCA Gisele Primary Care Unavailable SELF Referring Unavailable YENY LYONS Attending Unavailable ELDERBROCK, FRANCESCA Gisele Primary Care Unavailable ELDERBROCK, FRANCESCA Gisele Primary Care Unavailable ELDERCHRISTOPHECK, FRANCESCA Jaquez Attending Unavailable ELDERCHRISTOPHECK, FRANCESCA Jaquez Primary Care Unavailable ANN VEGA Attending Unavailable ELDERBROCK, FRNACESCA Gisele Primary Care Unavailable NIKITA DANIELS Attending Unavailable ELDERBROCK, FRANCESCA Gisele Primary Care Unavailable SAM OSBORNE Attending Unavailable Medications Current Medications Medication Drug Class(es) Dates Sig (Normalized) Sig (Original) amoxicillin 875 mg / clavulanate 125 mg oral tablet (1 source) Penicillin-class Antibacterial Start: 11-17-2024 End: 11-24-2024 take 1 tablet by mouth twice daily amoxicillin-clavulan ate potassium (AUGMENTIN) 875-125 mg per tablet Indications: Rhinosinusitis Take 1 tablet by mouth two times a day for 7 days. 14 tablet 11/17/2024 11/24/2024 Active benzonatate 100 mg oral capsule (8 sources) Non-narcotic Antitussive Start: 11-26-2023 End: 05-14-2024 take 2 capsules by mouth every eight [...] Comment on above: Take 1 capsule by mo [facility] three times daily as needed for cough. [...] Discontinued Start: 10-31-2022 [facility] norgestimate 0.25 mg-ethinyl estradiol 35 [...] propionate 0.05 mg/actuat metered dose nasal spray (16 sources) Corticosteroid Start: 025 take 1-2 spray(s) nasal route once daily [...] once daily. Rinse mouth after use. levonorgestrel 0.997621 mg/hr intrauterine system (20 sources) Progestin, Progestin-containing Intrauterine Device Start: 023 End: 031 levonorgestrel (MIRENA) 21 mcg/24 hours (8 yrs) 52 mg IUD Indications: Encounter for IUD insertion 1 Each by INTRAUTERINE route as directed. 1 Each 06/25/2023 06/23/2031 Active Comment on above: 1 Each by INTRAUTERI NE route as directed. metoclopramide 10 mg oral tablet (2 sources) Dopamine-2 Receptor Antagonist Start: 025 End: take 1 tablet by mouth once metoclopramide HCl (REGLAN) 10 mg tablet Indications: Intractable chronic migraine without aura and without status migrainosus Take 1 tablet by mouth one time only for 1 dose. 1 tablet 10/08/2024 10/08/2024 Active naproxen 500 mg oral tablet (17 sources) Nonsteroidal Anti-inflammatory Drug Start: 023 End: take 1 tablet by mouth twice daily at mealtime naproxen (NAPROSYN) 500 mg tablet Indications: Intercostal muscle strain, initial encounter Take 1 tablet by mouth twice daily with meals. Take with food. 20 tablet 02/07/2023 05/14/2024 Discontinued Comment on above: Take 1 tablet by marquez th twice daily with meals. Take with food. pantoprazole 40 mg delayed release oral tablet (2 sources) Proton Pump Inhibitor Start: End: take 1 tablet by mouth once daily pantoprazole DR (PROTONIX) 40 mg tablet Take 1 tablet by mouth once daily. 90 tablet 3 03/11/2025 03/11/2026 Active Start: 02-07-2025 take 1 tablet by marquez th once daily Pantoprazole 40 mg tablet,delayed release (DR/EC) Active 40 mg PO DAILY 14 0 February 07, 2025 12:00am polyethylene glycol 3350 880340 mg / potassium chloride 2970 mg / sodium bicarbonate 6740 mg / sodium chloride 5860 mg / sodium sulfate 00026 mg powder for oral solution (3 sources) Osmotic Laxative Start: 02-18-2025 peg 3350-Electrolytes (GOLYTELY) 236-22.74-6.74 -5.86 gram suspension Refer to printed prep instructions from your provider. 4000 mL 02/18/2025 Active sertraline 50 mg oral tablet (20 sources) Serotonin Reuptake Inhibitor Start: 03-27-2021 End: 11-25-2024 take 1 tablet by mouth once daily sertraline (ZOLOFT) 50 mg tablet Take 1 tablet by mouth once daily. 30 tablet 5 03/27/2021 11/25/2024 Discontinued (Course of therapy completed) Comment on above: Take 1 tablet by marquez th once daily. SUMAtriptan 50 mg oral tablet (20 sources) Serotonin-1b and Serotonin-1d Receptor Agonist Start: 10-08-2024 take 1 tablet by mouth every two [...] mg/ml topical cream (13 sources) Corticosteroid Start: 02-18-2024 End: 02-28-2024 triamcinolone acetonide (KENALOG) 0.5 % cream Indications: [...] Sig (Original) acetaminophen 500 mg oral tablet (4 sources) Start: 11-16-2020 End: 11-25-2023 take 2 tablets by mouth every eight hours as needed for pain Acetaminophen 500 mg Tablet Discontinued 1000 mg PO EVERY 8 HOURS NEEDED as needed for Pain Score 1-10 0 0 November 16, 2020 12:00am November 25, 2023 12:27am Start: 11-16-2020 End: 11-25-2023 take 1000 mg by mouth every eight hours as needed Acetaminophen Discontinued 1000 MG PO EVERY 8 HOURS NEEDED 0 November 16, 2020 12:00am November 25, 2023 12:27am [id number] 200 actuat albuterol 0.09 mg/actuat metered dose inhaler (20 sources) beta2-Adrenergic Agonist Start: 11-25-2023 End: 02-07-2025 Albuterol Sulfate (Ventolin Hfa) 90 mcg/actuation HFA aerosol inhaler Discontinued 1 - 2 NMA INHALATION EVERY 4 HOURS NEEDED as needed for Wheezing 1 November 25, 2023 12:00am February 07, 2025 12:46am Start: 11-25-2023 take 1 puff(s) by in [...] hours as needed for wheezing/shortness of breath. brompheniramine maleate 0.4 mg/ml / dextromethorphan hydrobromide 2 mg/ml / pseudoephedrine hydrochloride 6 mg/ml oral solution (5 sources) alpha-Adrenergic Agonist, Uncompetitive X-fpeieh-T-aspartate Receptor Antagonist, Sigma-1 Agonist Start: 2024 End: 2024 take 5 mL by mouth four times daily as needed Brompheniramine-Pseu doeph-DM (BROMFED DM) 2-30-10 mg/5 mL syrup Indications: Viral URI with cough Take 5 mL by mouth four times a day as needed. 118 mL 12/05/2024 01/27/2025 Discontinued cyclobenzaprine hydrochloride 5 mg oral tablet (4 sources) Muscle Relaxant Start: 2020 End: 2020 take 1 tablet by mouth at bedtime as needed for pain Cyclobenzaprine (Flexeril) 5 mg Tablet Discontinued 5 mg PO AT BEDTIME as needed for Back Pain November 15, 2020 12:00am November 16, 2020 9:14am ibuprofen 600 mg oral tablet (4 sources) Nonsteroidal Anti-inflammatory Drug Start: 2020 End: 2023 take 1 tablet by mouth every six hours as needed for pain Ibuprofen 600 mg Tablet Discontinued 600 mg PO EVERY 6 HOURS NEEDED as needed for Pain Score 1-10 0 0 November 16, 2020 12:00am November 25, 2023 12:27am 2 ml ketorolac tromethamine 30 mg/ml injection (2 sources) Nonsteroidal Anti-inflammatory Drug, Cyclooxygenase Inhibitor Start: 2024 End: 2024 keTORolac 60 mg injection (Toradol) Start: 10-08-2024 [...] 12:27am Pnv Cmb#95-Ferrous Fumarate-Fa 1 EACH tablet (3 sources) Start: 05-19-2020 End: 11-25-2023 Pnv Cmb#95-Ferrous Fumarate-Fa 1 EACH tablet Discontinued 1 EA PO DAILY May 19, 2020 12:00am November 25, 2023 12:27am Check with primary doctor Start: 05-19-2020 End: 11-25-2023 Pnv Cmb#95-Ferrous Fumarate- Fa 1 EACH tablet Discontinued 1 EA PO DAILY May 19, 2020 12:00am November 25, 2023 12:27am predniSONE 20 mg oral tablet (12 sources) Start: 12-15-2024 End: 02-07-2025 take 1 tablet by mouth once daily Prednisone 20 mg tablet Discontinued 20 mg PO DAILY 5 5 0 December 15, 2024 12:00am February 07, 2025 12:46am Start: 11-26-2023 End: 12-01-2023 take 2 tablets [...] tab daily for 3 days with food. ubrogepant 50 mg oral tablet (2 sources) Start: 10-09-19 End: 10-09-19 take 1 tablet by mouth once daily [...] Virus Nucleoside Analog DNA Polymerase Inhibitor Start: 10-02-19 End: 03-30-20 take 1 tablet by mouth once daily [...] Date Documented Da te Episodic/Chronic Abdominal pain (5 sources) Abdominal pain; Translations: [Unspecified abdominal pain] Onset: 03-03-2025 02-19-2023 Episodic Acute bronchitis (7 sources) Acute bronchitis co-occurrent with wheeze; Translations: [Acute bronchitis, unspecified] 11-25-2023 Episodic Allergic reactions (6 sources) Contact dermatitis; Translations: [Unspecified contact dermatitis, unspecified cause] Onset: 11-25-2024 02-18-2024 Episodic Chronic obstructive pulmonary disease and bronchiectasis (1 source) Bronchitis; Translations: [Bronchitis, not specified as acute or chronic] 11-26-2023 Episodic Contraceptive and procreative management (6 sources) Patient encounter status; Translations: [Encounter for other general counseling and advice on contraception] 06-05-2023 Episodic Diseases of white blood cells (4 sources) Leukocytosis; Translations: [Elevated white blood cell count, unspecified] 02-19-2023 Chronic Disorders of teeth and jaw (2 sources) Tooth disorder; Translations: [Disorder of teeth and supporting structures, unspecified] Onset: 12-23-2024 12-23-2024 Episodic Early or threatened labor (4 sources) False labor; Translations: [False labor, unspecified] 11-21-2020 Episodic Esophageal disorders (3 sources) Chest pain; Translations: [Gastro-esophageal reflux disease without esophagitis] Onset: 03-11-2025 02-07-2025 Chronic External cause codes: Fall (1 source) Fall on same level due to ice and snow, initial encounter; Translations: [Fall on same level due to ice and snow, initial encounter] Onset: 07-29-2018 Headache; including migraine (3 sources) Chronic intractable migraine without aura; Translations: [Chronic migraine without aura, intractable, without status migrainosus] Onset: 10-08-2024 10-08-2024 Chronic Headache; including migraine (4 sources) Headache; Translations: [Headache] 09-02-2019 Episodic Hemorrhoids (3 sources) Bleeding external hemorrhoids; Translations: [Residual hemorrhoidal skin tags] 03-02-2024 Episodic Inflammation; infection of eye (except that caused by tuberculosis or sexually transmitteddisease) (1 source) Unspecified conjunctivitis; Translations: [Rhinoconjunctivitis] Onset: 12-23-2024 Episodic Nausea and vomiting (4 sources) Nausea; Translations: [Nausea] Onset: 02-18-2025 02-18-2025 Episodic Nonspecific chest pain (1 source) Chest pain, unspecified; Translations: [Chest pain, unspecified] Onset: 02-10-2025 Episodic OB-related trauma to perineum and vulva (4 sources) First degree perineal laceration; Translations: [First degree perineal laceration during delivery] 11-15-2020 Episodic Other complications of (1 source) Absent blood vessel in umbilical cord; Translations: [Supervision of other high risk pregnancies, unspecified trimester] 09-13-2020 Episodic Other complications of (3 sources) Single umbilical artery; Translations: [Supervision of other high risk pregnancies, unspecified trimester] 09-13-2020 Episodic Other disorders of stomach and duodenum (1 source) Reactive gastropathy; Translations: [Other diseases of stomach and duodenum] 03-11-2025 Episodic Other eye disorders (2 sources) Bilateral epiphora of eyes; Translations: [Unspecified epiphora, bilateral] 11-25-2024 Episodic Other eye disorders (2 sources) Itching of eye; Translations: [Unspecified disorder of eye and adnexa] 11-25-2024 Episodic Other female genital disorders (2 [...] [Other constipation] 02-18-2024 Episodic Other gastrointestinal disorders (10 sources) Diarrhea; Translations: [Diarrhea, unspecified] 01-31-2025 Episodic Other gastrointestinal disorders (2 sources) Heartburn; Translations: [Heartburn] 02-18-2025 Episodic Other gastrointestinal disorders (2 sources) Diarrhea, unspecified; Translations: [Diarrhea, unspecified type] Onset: 01-31-2025 Episodic Other gastrointestinal disorders (2 sources) Heartburn; Translations: [Heart burn] Onset: 02-18-2025 Episodic Other lower respiratory disease (1 source) Cough; Translations: [Cough] Episodic Other lower respiratory disease (2 sources) Dyspnea; Translations: [Dyspnea, unspecified] 12-15-2024 Episodic Other non-traumatic joint disorders (2 sources) Pain of right wrist; Translations: [Pain in right wrist] Episodic Other nutritional; endocrine; and metabolic disorders (3 sources) Body mass index 30+ - obesity; Translations: [Body mass index (BMI) 39.0-39.9, adult] 03-02-2024 Chronic Other and delivery including normal (8 sources) Delivery normal; Translations: [Encounter for full-term [...] Translations: [Nasal congestion] Episodic Other upper respiratory infections (2 sources) Chronic sinusitis, unspecified; Translations: [Unspecified sinusitis (chronic)] Onset: 11-17-2024 11-17-2024 Chronic Polyhydramnios and other problems of amniotic cavity (4 sources) Amniotic fluid leaking; Translations: [Premature rupture of membranes, unspecified as to length of time between rupture and onset of labor, unspecified weeks of gestation] 09-13-2020 Episodic Residual codes; unclassified (4 sources) Gestation period, 31 weeks; Translations: [31 weeks gestation of ] 09-13-2020 Episodic Residual codes; unclassified (3 sources) Family history of cancer; Translations: [Family history of malignant neoplasm, unspecified] 02-03-2025 Episodic Residual codes; unclassified (1 source) Family history of breast cancer; Translations: [Family history of malignant neoplasm of breast] 02-04-2025 Episodic Residual codes; unclassified (1 source) Family history of malignant neoplasm of pancreas; Translations: [Family history of malignant neoplasm of digestive organs] 02-04-2025 Episodic Residual codes; unclassified (1 source) Illness, unspecified; Translations: [Illness, unspecified] Onset: 12-09-2024 Episodic Residual codes; unclassified (1 source) Family history of malignant neoplasm of breast; Translations: [Family history of breast cancer] Onset: 02-04-2025 Episodic Residual codes; unclassified (1 source) Family history of malignant neoplasm of other organs or systems; Translations: [Family history of adrenal cancer] Onset: 02-04-2025 Episodic Residual codes; unclassified (1 source) Family history of malignant neoplasm of digestive organs; Translations: [Family history of pancreatic cancer] Onset: 02-04-2025 Episodic Superficial injury; contusion (1 source) Blister of lip; Translations: [Blister (nonthermal) of lip, initial encounter] 07-04-2023 Episodic Unclassified (4 sources) Planned procedure; Translations: [Elective induction of labor planned] 11-15-2020 Viral infection (4 sources) Viral disease; Translations: [Viral infection, unspecified] Episodic Past or Other Problems Problem Classification Problem Date Documented Da te Episodic/Chronic Bacterial infection; unspecified site (20 sources) Bacteria [...] closed fracture] Onset: 9 Episodic Gastrointestinal hemorrhage (2 sources) Rectal hemorrhage; Translations: [Hemorrhage of anus [...] in left arm] Onset: 9 Episodic Other eye disorders (1 source) Unspecified disorder of eye and adnexa; Translations: [Itchy eyes] Onset: 5 Episodic Other eye disorders (1 source) Unspecified epiphora, bilateral; Translations: [Watery eyes] Onset: 5 Episodic Other gastrointestinal disorders (20 sources) Malabsorption - iron; Translations: [Intestinal malabsorption, unspecified] Onset: 7 Resolved: 8 07-23-2017 Chronic Other gastrointestinal disorders (20 sources) Constipation; Translations: [Constipation, unspecified] Onset: 2 Resolved: 5 11-16-2014 Episodic Other infections; including parasitic (20 sources) H/O: infectious disease; Translations: [Personal history of other infectious and parasitic diseases] Onset: 7 Resolved: 8 09-19-2017 Episodic Other upper respiratory disease (1 source) Nasal congestion; Translations: [Nasal congestion] Onset: 5 Episodic Other upper respiratory infections (16 sources) Sore throat symptom; Translations: [Acute pharyngitis, unspecified] Onset: 5 Episodic Pancreatic disorders (not diabetes) (20 sources) [...] Name Value Interpretation Reference Range Facil ity ANES POSTPROC EVALon 025 ANES POSTPROC EVAL HNO ID: [id number] Author: LINN SPAULDING MD Service: Anesthesiology Author Type: Physician Type: Anesthesia Postprocedure Evaluation Filed: 03/03/2025 09:39 Note Text: POST ANESTHESIA EVALUATION NOTE : 2000 Procedure Summary Date: 03/03/25 Room / Location: SURGERY Anesthesia Start: 858 Anesthesia Stop: 934 Procedures: COLONOSCOPY DIAGNOSTIC EGD DIAGNOSTIC Diagnosis: Diarrhea, unspecified type Heart burn Nausea Diarrhea, unspecified type Heart burn Nausea Scheduled Providers: Gilma Villegas MD; Linn Spaulding MD Responsible Provider: Linn Spaulding MD Anesthesia Type: MAC ASA Status: 3 Anesthesia Type: MAC Last Vitals Vitals Value Taken Time BP 109/55 03/03/25 09:33 Temp 96.8 03/03/25 09:35 Pulse 70 03/03/25 09:34 Resp 22 03/03/25 09:34 SpO2 100 % 03/03/25 09:34 Vitals shown include unfiled device data. Post Anesthesia Patient Status Patient Evaluation: bedside. Anticipated Disposition: phase 2 then home. Neurological Status: aware and responsive. Pulmonary Status: breathing comfortably on room air Airway Control: returned to baseline unsupported. Cardiovascular Status: stable. Pain Management: clinically adequate Postoperative Hydration: acceptable. Intraoperative Events: no significant anesthesia events Post Operative Nausea/Vomiting Status: no significant post operative nausea or vomiting Recommendation: continue current plan of care. Anesthesia Observations No Documentation SIGNATURE: Linn Spaulding MD PATIENT NAME: Marianne Saucedo DATE: March 03, 2025 TIME: 9:35 AM CSN: [id number] [facility] ANES PRE-OPon 03-03-2025 ANES PRE-OP HNO ID: [id number] Author: LINN SPAULDING MD Service: Anesthesiology Author Type: Physician Type: Anesthesia Preprocedure Evaluation Filed: 03/03/2025 08:57 Note Text: ANESTHESIOLOGY DAY OF SURGERY NOTE : 2000 Procedure Information Date/Time: 03/03/25 0900 Scheduled providers: Gilma Villegas MD; Linn Spaulding MD Procedures: COLONOSCOPY DIAGNOSTIC EGD DIAGNOSTIC Location: LD SURGERY Estimated body mass index is 39.82 kg/m? as calculated from the following: Height as of 10/31/22: 160 cm (5' 3). Weight as of 02/18/25: 102 kg (224 lb 12.8 oz). 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 Tracheostomy tube not present Mallampati: III. TM distance: <3 FB. Neck ROM: full ROM without neurological symptoms. Mouth opening: adequate. Short neck: no. Thick neck: no Adame present: no Microretrognathia/Mi cronagthia/Recessed Chin: No DENTAL Dental findings: chipped. Additional comments: Chipped lower right tooth. Additional exam findings: yes. CARDIOVASCULAR Normal cardiovascular observations. PULMONARY Normal pulmonary observations. II - ANESTHESIA PLAN ASA Score: 3 Anesthetic Plan: MAC The patient is not a current smoker. NPO Status: adequate Beta Geovanna Monitoring Plan Monitoring plan: standard ASA. Post Procedure Analgesic Plan Postoperative analgesic plan: parenteral or oral opioids. Informed Consent Anesthetic risks, benefits, alternatives, personnel and consent discussed: yes. Patient / Responsible Libertarian agrees to proceed: yes Patient / Surrogate agrees to blood products: Yes DNR status not reviewed with patient and/or family prior to surgery. Significant changes in the patient condition since the History and Physical, not otherwise documented in primary service progress note: no. Potential Anesthesia issues that may suggest increased risk of complications or contraindication to planned procedure: none. Vitals Value Taken Time BP 114/74 03/03/25 08:29 Pulse Resp 21 03/03/25 08:29 Temp 36.6 ?C (97.9 ?F) 03/03/25 08:29 SpO2 98 % 03/03/25 08:29 Facility-Administere d Medications as of 03/03/2025 Medication Dose Route Frequency - lidocaine (PF) 10 mg/mL (1 %) 1-2 mg injection (XYLOCAINE) 0.1-0.2 mL INTRADERMAL PRN - lactated ringers iv infusion 30 mL/hr INTRAVENOUS CONTINUOUS Outpatient Medications as of 03/03/2025 Medication Sig - peg 3350-Electrolytes (GOLYTELY) 236-22.74-6.74 -5.86 gram suspension Refer to printed prep instructions from your provider. - fluticasone (FLONASE) 50 mcg/actuation nasal spray [...] hours as needed for wheezing/shortness of breath. I have interviewed and examined the patient. I have reviewed the medical record and/or the pre-anesthesia evaluation, pertinent labs, and test results. This contains updated information obtained within 48 hours of Surgery/Procedure. SIGNATURE: Linn Spaulding MD PATIENT NAME: Marianne Saucedo DATE: March 03, 2025 TIME: 8:47 AM CSN: [id number] Normal [facility] Colonoscopyon 03-03-2025 Colonoscopy [facility] Gastrointestinal Endoscopy Patient Name: Marianne Saucedo Procedure Date: 03/03/2025 9:15 AM Date of : 2000 Admit Type: Outpatient Age: 24 Gender: Female Note Status: Finalized Procedure: Colonoscopy Indications: Clinically significant diarrhea of unexplained origin Providers: Gilma Villegas MD Patient Profile: Refer to note in patient chart for documentation of history and physical. Last Colonoscopy: none. The patient's first colonoscopy is today. Referring Physician: Medicines: See the Anesthesia note for documentation of the administered medications Complications: No immediate complications. Requesting Provider: Procedure: Pre-Anesthesia Assessment: - Monitored anesthesia care under the supervision of an anesthesiologist was determined to be medically necessary for this procedure based on review of the patient's medical history, medications, and prior anesthesia history. After I obtained informed consent, the scope was passed under direct vision. Throughout the procedure, the patient's blood pressure, pulse, and oxygen saturations were monitored continuously. The Colonoscope was introduced through the anus and advanced to the cecum, identified by the appendiceal orifice, ileocecal valve and palpation. test The colonoscopy was performed without difficulty. The patient tolerated the procedure well. The quality of the bowel preparation was adequate to identify polyps greater than 5 mm in size. The appendiceal orifice and the rectum were photographed. Moderate Sedation: MAC anesthesia was administered by the anesthesia team. Findings: The perianal and digital rectal examinations were normal. Non-bleeding internal hemorrhoids were found. Biopsies for histology were taken with a cold forceps from the entire colon for evaluation of microscopic colitis. Estimated blood loss was minimal. Impression: - Non-bleeding internal hemorrhoids. - Biopsies were taken with a cold forceps from the entire colon for evaluation of microscopic colitis. Recommendation: - Discharge patient to home (ambulatory). - Resume previous diet. - Await pathology results. - Return to referring provider at the next available appointment. - Patient has a contact number available for emergencies. The signs and symptoms of potential delayed complications were discussed with the patient. Return to normal activities tomorrow. Written discharge instructions were provided to the patient. - Continue present medications. - Repeat colonoscopy as per ACS guidelines. Procedure Code(s): --- Professional --- 65249, Colonoscopy, flexible; with biopsy, single or multiple Diagnosis Code(s): --- Professional --- R19.7, Diarrhea, unspecified K64.8, Other hemorrhoids CPT copyright 2020 [employer]. All rights reserved. The codes documented in this report are preliminary and upon tack maker review may be revised to meet current compliance requirements. Attending Participation: I personally performed the entire procedure. Scope In: 9:17:38 AM Scope Out: 9:28:11 AM MD Gilma Arias MD 03/03/2025 9:32:22 AM This report has been signed electronically by Gilma Villegas MD Number of Addenda: 0 Note Initiated On: 03/03/2025 9:15 AM Estimated Blood Loss: Estimated blood loss was minimal. Normal [facility] HCG Preg Ur Qlon 03-03-2025 HCG ( test) Ql (U) Negative Normal Negative [facility] Comment on above: Order Comment: Speci men Type: URINE SPECIMEN Ordering Facility: [facility] Address: [facility] [place] [address] Result Comment: This test is intended to aid in the early detection of . Very dilute urine samples, as indicated by a low specific gravity, may not contain contact center representative levels of hCG. This test detects [...] Performed By: #### 2 106-3 #### [facility] CLIA [id number] [address] [place] [id number] [place] [address] [place] HISTORY PHYSICALon HISTORY PHYSICAL HNO ID: [id number] Author: GILMA VILLEGAS MD Service: General Surgery Author Type: Physician Type: H&P Filed: 03/03/2025 08:47 Note Text: HISTORY AND PHYSICAL Marianne Saucedo : 2000 REFERRING PHYSICIAN: Francesca Gill [address] [facility] [address] CHIEF COMPLAINT: Patient presents with: Diarrhea: Sent by PCP for possible colonoscopy HPI: Marianne is a 24 year old female referred for endoscopy. Marianne notes diarrhea. Marianne notes cramping abdominal pain prior to diarrhea. Marianne notes diarrhea. -for the last 2 months -5 to 6 bowel movements a day -30 minutes after eating -post cholecystectomy 2014 -stool samples negative Marianne notes a distant history of constipation. Marianne denies melena. Marianne denies bright red blood per rectum. Marianne notes hemorrhoids. Marianne denies family history of colon issues. Marianne notes heartburn. -increase over the last 2 weeks Marianne notes dysphagia. Marianne denies a history of ulcers/ peptic ulcer disease. Marianne was recently in the ED for chest pain -cardiac/respiratory work up was negative, GI cocktail improved symptoms -started on protonix Nausea in the AM Marianne has not undergone prior endoscopy. CURRENT MEDICATIONS Current Outpatient Medications Medication Sig fluticasone (FLONASE) 50 mcg/actuation nasal [...] hours as needed for wheezing/shortness of breath. peg 3350-Electrolytes (GOLYTELY) 236-22.74-6.74 -5.86 gram suspension Refer to printed prep instructions from your provider. No current facility-administere d medications for this visit. ALLERGIES: Patient has no known allergies. PAST MEDICAL HISTORY 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 Anemia BMI 39.0-39.9,adult Bronchiolitis as infant resolved Chest pain due to GERD Cholestasis of in second trimester (HCC) 05/10/2016 Constipation 11/08/2011 depression counseling only Family history of adrenal cancer Family history of breast cancer Family history of pancreatic cancer NEGATIVE MEDICAL HISTORY normal color vision Pancreatitis ([facility]) with gallbladder issues depression Seasonal allergic rhinitis due to pollen Strep throat recurrent, tonsillectomy age 3 years PAST SURGICAL HISTORY PAST SURGICAL HISTORY Procedure Laterality Date LAPAROSCOPY SURG CHOLECYSTECTOMY 07/21/2014 Cholecystectomy, lap MIRENA IUD 06/25/2023 Placed in office TONSILLECTOMY HX age 3 years FAMILY HISTORY FAMILY HISTORY Problem Relation Age of Onset [...] use: No Drug use: No REVIEW OF SYMPTOMS: REVIEW OF SYSTEMS: General: The patient + fatigue, denies weight loss, + weight gain, denies feeling hot, and feelings of cold. Eyes: The patient denies glaucoma, denies eye injury/surgery, denies glasses or contacts. Ear/Nose/Throat: The patient denies allergies, denies hayfever, denies ear infections, and denies bloody noses. Cardiovascular: The patient denies chest pain, denies heart disease, denies high blood pressure, denies high cholesterol, and denies poor circulation. Respiratory: The patient denies tuberculosis, denies pneumonia, denies frequent cough, denies shortness of breath, and denies coughing up blood. Gastrointestinal: The patient denies difficulty swallowing, + acid reflux, denies ulcers, denies jaundice/hepatitis, + gallbladder problems, denies vomiting, denies black or tarry stools, + hemorrhoids, denies bleeding from rectum, denies diverticulitis, + constipation, + diarrhea, denies loss of stool control, and denies hernias. Kidney/Bladder: The patient denies kidney stones, denies urine infections, and denies bloody urine. Skin: The patient denies a history of skin cancer, denies bleeding/changing moles, and denies a history of skin rash. Neurologic: The patient denies a history of epileps (more content not included)... Normal [facility] Pathology biopsy report Jakub (Tiss)on 03-03-2025 AP DISCLAIMER Normal [facility] Comment on above: Order Comment: Speci men Type: TISSUE SPECIMEN Ordering Facility: [facility] Address: [address] [place] [address] Result Comment: Susan rosenbaum Developed Test (LDT) Disclaimer: Performance characteristics of immunohistochemical, immunofluorescent, and chromogenic in-situ hybridization tests have been determined by the performing laboratory within [place] Pathology and Laboratory Medicine Department ([facility], [facility], [facility], [facility], [facility], [facility], or [facility]) in a manner consistent with CLIA requirements. One or more of these tests may not have been cleared or approved by the FDA. [facility] is regulated under CLIA as qualified to perform high-complexity testing. These tests are used for clinical purposes. These should not be regarded as investigational or for research. Positive and negative controls stain appropriately. Performed By: #### 6 6121-5 #### [facility] CLIA [id number] [address] [place] CASE REPORT Normal [facility] Comment on above: Order Comment: Speci men Type: TISSUE SPECIMEN Ordering Facility: [facility] Address: [address] [place], [place] [id number] Result Comment: Surg ical Pathology Report Case: [id number] Authorizing Provider: Gilma Villegas MD Collected: 03/03/2025 09:05 AM Ordering Location: [facility] SUR[facility]ERY Received: 03/03/2025 01:15 PM Pathologist: Edwin Mcnair MD Specimens: A) - Stomach, Antrum, Biopsy B) - Esophagogastric Junction, Biopsy C) - Esophagus, Biopsy, Random esophageal biopsies. D) - Colon, Biopsy, Random colon biopsies. Performed By: #### 6 6121-5 #### [facility] CLIA [id number] [address] FINAL DIAGNOSIS Normal [facility] Comment on above: Order Comment: Speci men Type: TISSUE SPECIMEN Ordering Facility: [facility] Address: [address] [place] [address] Result Comment: A. S tomach, antrum, biopsy: - Antral-type gastric mucosa with mild chronic gastritis and features suggestive of active gastropathy. B. Esophagogastric junction, biopsy: - Squamocolumnar mucosa with intestinal metaplasia and focal active inflammation. - Negative for dysplasia and malignancy. C. Esophagus, random biopsies: - Squamous mucosa with no significant histopathologic changes. D. Colon, random biopsies: - Colonic mucosa with no significant histopathologic changes. at 0834 EDT Performed By: #### 6 6121-5 #### [facility] CLIA [id number] [address] FINAL PERFORMING LAB Normal [facility] Comment on above: Order Comment: Speci men Type: TISSUE SPECIMEN Ordering Facility: [facility] Address: [address] [place] [address] Result Comment: Diag nostic interpretation performed at: [facility], [address] [address] CLIA# [id number] Secretary To The Vice President: Shahbaz Banks MD Performed By: #### 6 6121-5 #### [facility] CLIA [id number] [address] GROSS DESCRIPTION Normal [facility] Comment on above: Order Comment: Speci men Type: TISSUE SPECIMEN Ordering Facility: [facility] Address: [address] [place] [address] Result Comment: A. S tomach, Antrum, Biopsy Received in formalin labeled stomach antrum biopsy is a irregular thakkar soft tissue fragment measuring 0.3 x 0.2 x 0.2 cm. The specimen is submitted entirely in A1. B. Esophagogastric Junction, Biopsy Received in formalin labeled esophagogastric junction biopsy is a irregular thakkar soft tissue fragment measuring 0.2 x 0.2 x 0.2 cm. The specimen is submitted entirely in B1. C. Esophagus, Biopsy Received in formalin labeled random esophageal biopsies are multiple irregular thakkar soft tissue fragments aggregating to 0.3 x 0.3 x 0.2 cm. The specimen is submitted entirely in C1. D. Colon, Biopsy Received in formalin labeled random colon biopsies are multiple irregular thakkar soft tissue fragments aggregating to 0.8 x 0.8 x 0.2 cm. The specimen is submitted entirely in D1. Gross examination performed at [facility] Kiln Repairer [address] March 04, 2025 9:50 AM Performed By: #### 6 6121-5 #### [facility] CLIA [id number] [address] [place], [place] [id number] [facility] Upper GI endoscopyon 03-03-2 025 Upper GI endoscopy [facility] Gastrointestinal Endoscopy Patient Name: Marianne Saucedo Procedure Date: 03/03/2025 8:46 AM Date of : 2000 Admit Type: Outpatient Age: 24 Gender: Female Note Status: Finalized Procedure: Upper GI endoscopy Indications: Dysphagia Providers: Gilma Villegas MD Patient Profile: Refer to note in patient chart for documentation of history and physical. Referring Physician: Medicines: See the Anesthesia note for documentation of the administered medications Complications: No immediate complications. Requesting Provider: Procedure: Pre-Anesthesia Assessment: - Monitored anesthesia care under the supervision of an anesthesiologist was determined to be medically necessary for this procedure based on review of the patient's medical history, medications, and prior anesthesia history. After obtaining informed consent, the endoscope was passed under direct vision. Throughout the procedure, the patient's blood pressure, pulse, and oxygen saturations were monitored continuously. The Endoscope was introduced through the mouth, and advanced to the second part of duodenum. The upper GI endoscopy was accomplished without difficulty. The patient tolerated the procedure well. Moderate Sedation: MAC anesthesia was administered by the anesthesia team. Findings: The duodenal bulb, first portion of the duodenum and second portion of the duodenum were normal. Localized mildly erythematous mucosa without bleeding was found in the gastric antrum. Biopsies were taken with a cold forceps for Helicobacter pylori testing. Verification of patient identification for the specimen was done by the nurse. Estimated blood loss was minimal. The Z-line was irregular and was found 39 cm from the incisors. Biopsies were taken with a cold forceps for histology. Verification of patient identification for the specimen was done by the nurse. Estimated blood loss was minimal. Impression: - Normal duodenal bulb, first portion of the duodenum and second portion of the duodenum. - Erythematous mucosa in the antrum. Biopsied. - Z-line irregular, 39 cm from the incisors. Biopsied. Recommendation: - Discharge patient to home (ambulatory). - Resume previous diet. - Continue present medications. - Await pathology results. - - Follow up with Yolanda Lyons NP, , may be via televisit for discussion of pathology results Procedure Code(s): --- Professional --- 13212, Esophagogastroduoden oscopy, flexible, transoral; with biopsy, single or multiple Diagnosis Code(s): --- Professional --- R13.10, Dysphagia, unspecified K22.89, Other specified disease of esophagus K31.89, Other diseases of stomach and duodenum CPT copyright 2020 [employer]. All rights reserved. The codes documented in this report are preliminary and upon tack maker review may be revised to meet current compliance requirements. Attending Participation: I personally performed the entire procedure. Scope In: 9:04:39 AM Scope Out: 9:11:02 AM MD Gilma Arias MD 03/03/2025 9:15:12 AM This report has been signed electronically by Gilma Villegas MD Number of Addenda: 0 Note Initiated On: 03/03/2025 8:46 AM Estimated Blood Loss: Estimated blood loss was minimal. Normal [facility] CNOVon 02-18-2025 CNOV Office Visit (GENSWS) MARIANNE SAUCEDO ([id number]) 2000 F Date Time Provider Department 02/18/25 2:00 PM SERENAABDULLAHI RUSSELLYENYZONIA SLATER During your visit today, we recorded the following information about you: Pulse Respiration Blood pressure Weight 84/minute 14/minute 117/80 102 kg Yeny Lyons APRN.ROTATING EQUIPMENT SPECIALIST 02/18/2025 2:25 PM Signed HISTORY AND PHYSICAL Marianne Saucedo : 2000 REFERRING PHYSICIAN: Francesca Gill [address] [place], [place] [id number] CHIEF COMPLAINT: Patient presents with: Diarrhea: Sent by PCP for possible colonoscopy HPI: Marianne is a 24 year old female referred for endoscopy. Marianne notes diarrhea. Marianne notes cramping abdominal pain prior to diarrhea. Marianne notes diarrhea. -for the last 2 months -5 to 6 bowel movements a day -30 minutes after eating -post cholecystectomy 2014 -stool samples negative Marianne notes a distant history of constipation. Marianne denies melena. Marianne denies bright red blood per rectum. Marianne notes hemorrhoids. Marianne denies family history of colon issues. Marianne notes heartburn. -increase over the last 2 weeks Marianne notes dysphagia. Marianne denies a history of ulcers/ peptic ulcer disease. Marianne was recently in the ED for chest pain -cardiac/respiratory work up was negative, GI cocktail improved symptoms -started on protonix Nausea in the AM Marianne has not undergone prior endoscopy. Current Outpatient Medications Medication Sig fluticasone (FLONASE) 50 mcg/actuation nasal [...] hours as needed for wheezing/shortness of breath. peg 3350-Electrolytes (GOLYTELY) 236-22.74-6.74 -5.86 gram suspension Refer to printed prep instructions from your provider. No current facility-administere d medications for this visit. ALLERGIES: Patient has no known allergies. 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 Anemia BMI 39.0-39.9,adult Bronchiolitis as infant resolved Chest pain due to GERD Cholestasis of in second trimester ([facility]) 05/10/2016 Constipation 11/08/2011 depression counseling only Family history of adrenal cancer Family history of breast cancer Family history of pancreatic cancer NEGATIVE MEDICAL HISTORY normal color vision Pancreatitis ([facility]) with gallbladder issues depression Seasonal allergic rhinitis due to pollen Strep throat recurrent, tonsillectomy age 3 years [...] use: No Drug use: No REVIEW OF SYMPTOMS: REVIEW OF SYSTEMS: General: The patient + fatigue, denies weight loss, + weight gain, denies feeling hot, and feelings of cold. Eyes: The patient denies glaucoma, denies eye injury/surgery, denies glasses or contacts. Ear/Nose/Throat: The patient denies allergies, denies hayfever, denies ear infections, and denies bloody noses. Cardiovascular: The patient denies chest pain, denies heart disease, denies high blood pressure, denies high cholesterol, and denies poor circulation. Respiratory: The patient denies tuberculosis, denies pneumonia, denies frequent cough, denies shortness of breath, and denies coughing up blood. Gastrointestinal: The patient denies difficulty swallowing, + acid reflux, denies ulcers, denies jaundice/hepatitis, + gallbladder problems, denies vomiting, denies black or tarry stools, + hemorrhoids, denies bleeding from rectum, denies diverticulitis, + constipation, + diarrhea, denies loss of stool control, and denies hernias. Kidney/Bladder: The patient denies kidney stones, denies urine infections, and denies bloody urine (more content not included)... Normal [facility] CBC panel Auto (Bld)on 02-09 Erythrocyte distribution width (RBC) [Ratio] 12.0 % Normal 11.5-15.0 [facility] Comment on above: Order Comment: Speci men Type: SWAB Ordering Facility: [facility] Address: [address] [place] [address] Performed By: #### B VAMP, CVTV #### [facility] CLIA [id number] [address] [place] [address] [place] Hematocrit (Bld) [Volume fraction] 40.8 % Normal 36.0-46.0 [facility] Comment on above: Order Comment: Speci men Type: SWAB Ordering Facility: [facility] Address: [address] [place] [address] Performed By: #### B VAMP, CVTV #### [facility] CLIA [id number] [address] [place] [address] [place] Hemoglobin (Bld) [Mass/Vol] 13.5 g/dL Normal 11.5-15.5 [facility] Comment on above: Order Comment: Speci men Type: SWAB Ordering Facility: [facility] Address: [address] [place] [address] Performed By: #### B VAMP, CVTV #### [facility] CLIA [id number] [address] [place] [address] [place] MCH (RBC) [Entitic mass] 29.9 pg Normal 26.0-34.0 [facility] Comment on above: Order Comment: Speci men Type: SWAB Ordering Facility: [facility] Address: [address] [place] [address] Performed By: #### B VAMP, CVTV #### [facility] CLIA [id number] [address] [place] [address] [place] MCHC (RBC) [Mass/Vol] 33.1 g/dL Normal 30.5-36.0 [facility] Comment on above: Order Comment: Speci men Type: SWAB Ordering Facility: [facility] Address: [address] [place] [address] Performed By: #### B VAMP, CVTV #### [facility] CLIA [id number] [address] [place] [address] [place] MCV (RBC) [Entitic vol] 90.3 fL Normal 80.0-100.0 [facility] Comment on above: Order Comment: Speci men Type: SWAB Ordering Facility: [facility] Address: [address] [place] [address] Performed By: #### B VAMP, CVTV #### [facility] CLIA [id number] [address] [place] [address] [place] Nucleated RBC (Bld) [#/Vol] 10*3/uL Normal <0.01 [facility] Comment on above: Order Comment: Speci men Type: SWAB Ordering Facility: [facility] Address: [address] [place] [address] Performed By: #### B VAMP, CVTV #### [facility] CLIA [id number] [address] [place] [address] [place] Platelet mean volume (Bld) [Entitic vol] 10.1 fL Normal 9.0-12.7 [facility] Comment on above: Order Comment: Speci men Type: SWAB Ordering Facility: [facility] Address: [address] [place] [address] Performed By: #### B VAMP, CVTV #### [facility] CLIA [id number] [address] [place] [address] [place] Platelets (Bld) [#/Vol] 333 10*3/uL Normal 150-400 [facility] Comment on above: Order Comment: Speci men Type: SWAB Ordering Facility: [facility] Address: [address] [place] [address] Performed By: #### B VAMP, CVTV #### [facility] CLIA [id number] [address] [place] [address] [place] RBC (Bld) [#/Vol] 4.52 10*6/uL Normal 3.90-5.20 [facility] Comment on above: Order Comment: Speci men Type: SWAB Ordering Facility: [facility] Address: [address] [place] [address] Performed By: #### B VAMP, CVTV #### [facility] CLIA [id number] [address] [place] [address] [place] WBC (Bld) [#/Vol] 10.37 10*3/uL Normal 3.70-11.00 [facility] Comment on above: Order Comment: Speci men Type: SWAB Ordering Facility: [facility] Address: [address] [place] [address] Performed By: #### B VAMP, CVTV #### [facility] CLIA [id number] [address] [place] [address] [place] ESR Westergren method (Bld) [Velocity]on 02-09-2025 ESR (Bld) [Velocity] 25 mm/h High 0-20 [facility] Comment on above: Order Comment: Speci men Type: SWAB Ordering Facility: [facility] Address: [address] [place] [address] Performed By: #### B VAMP, CVTV #### [facility] CLIA [id number] [address] [place] No Panel Informationon 02-09 IMPRESSION: Mild central intrahepatic and extrahepatic biliary ductal dilation with CBD measuring 1.4 cm, nonspecific post cholecystectomy. Correlation with LFTs and if clinically indicated MRCP could be considered for further evaluation. Steamfitter: LULÚ Transcribe Date/Time: Feb 09 2025 8:25A Dictated by : SAVANNAH MENDES DO This examination was interpreted and the report reviewed and electronically signed by: SAVANNAH MENDES DO on Feb 09 2025 8:29AM EST DIVISION OF RADIOLOGY No Panel InformationOrdered By: [facility]cf Provider on 02-09-2025 [facility] Ql (S)on 02-09 FRANCISCO SCR QUAL Negative Normal Negative [facility] Comment on above: Order Comment: Jim del cid Type: SWAB Ordering Facility: [facility] Address: [address] [place] [address] Result Comment: The qualitative antinuclear antibody screen test performed using the following antigens: dsDNA, Chromatin, Ribosomal P, SS-A 60, SS-A 52, SS-B, Sm, SmRNP, FOLDER MACHINE ADJUSTER A, FOLDER MACHINE ADJUSTER 68, Scl-70, Lorrie-1, and Centromere B. Methodology: Multiplex flow immunoassay. Performed By: #### DENISE DE OLIVEIRA #### [facility] CLIA [id number] [address] [place] [address] [place] TSH SerPl-aCncon 02-09-2025 TSH Qn 1.540 m[IU]/L Normal 0.270-4.200 [facility] Comment on above: Order Comment: Jim del cid Type: SWAB Ordering Facility: [facility] Address: [address] [place] [address] Result Comment: If t he patient is , TSH reference range varies by gestational period: First Trimester (weeks 9-12): 0.180-2.990 mIU/L Second Trimester: 0.110-3.980 mIU/L Third Trimester: 0.480-4.710 mIU/L Jaxson Treadwell et al. A Practical Approach for the Verifications and Determination of Site- and Trimester-Specific Reference Intervals for Thyroid Function tests in . Thyroid, 2019:29:3:412-420. Elvis Ansari, et al. 2017 Guidelines of the [place] [employer] for the Diagnosis and Management of Thyroid Disease during and the . Thyroid, 2017:27:3:315-389. Performed By: #### B DENISE BUTLER #### [facility] CLIA [id number] [address] [place] [address] [place] US ABD RIGHT UPPER QUADRANTo n 02-09-2025 US ABD RIGHT UPPER QUADRANT * * *Final Report* * * DATE OF EXAM: Feb 09 2025 8:23AM WRU 1032 - US ABD RIGHT UPPER QUADRANT / PROCEDURE REASON: Diarrhea, unspecified type * * * * Physician Interpretation * * * * EXAMINATION: RIGHT UPPER QUADRANT AND SPLEEN ULTRASOUND CLINICAL HISTORY: 24 years old Female with Diarrhea, unspecified type TECHNIQUE: Sonography of the right upper quadrant and spleen was performed. Images were obtained and stored in a permanent archive. MQ: URUQ_2 COMPARISON: CT abdomen pelvis 11/23/2008 RESULT: Limitations: Suboptimal visualization due to shadowing bowel gas and ribs. Pancreas: Normal sonographic appearance of the limited visualized portion. Liver: Echotexture: Normal, homogeneous. Echogenicity: Normal Surface contour: Smooth Lesions: None apparent. Biliary: Mild central intrahepatic biliary dilation. CBD: 1.4 cm at the hilum. Gallbladder: Prior cholecystectomy Right Kidney: No hydronephrosis. Left kidney: No hydronephrosis. Spleen: Craniocaudal length: 12.9 cm, normal. Lesions: None apparent. Ascites: None. IMPRESSION: Mild central intrahepatic and extrahepatic biliary ductal dilation with CBD measuring 1.4 cm, nonspecific post cholecystectomy. Correlation with LFTs and if clinically indicated MRCP could be considered for further evaluation. Steamfitter: PSCB Transcribe Date/Time: Feb 09 2025 8:25A Dictated by : SAVANNAH MENDES DO This examination was interpreted and the report reviewed and electronically signed by: SAVANNAH MENDES DO on Feb 09 2025 8:29AM EST [id number] CN Normal [facility] US ABD SPLEEN - NBon 025 * * *Final Report* * * DATE OF EXAM: Feb 09 2025 8:23AM WRU 1232 - US [facility] SPLEEN -NB / PROCEDURE REASON: Diarrhea, unspecified type * * * * Physician Interpretation * * * * EXAMINATION: RIGHT UPPER QUADRANT AND SPLEEN ULTRASOUND CLINICAL HISTORY: 24 years old Female with Diarrhea, unspecified type TECHNIQUE: Sonography of the right upper quadrant and spleen was performed. Images were obtained and stored in a permanent archive. MQ: URUQ_2 COMPARISON: CT abdomen pelvis 11/23/2008 RESULT: Limitations: Suboptimal visualization due to shadowing bowel gas and ribs. Pancreas: Normal sonographic appearance of the limited visualized portion. Liver: Echotexture: Normal, homogeneous. Echogenicity: Normal Surface contour: Smooth Lesions: None apparent. Biliary: Mild central intrahepatic biliary dilation. CBD: 1.4 cm at the hilum. Gallbladder: Prior cholecystectomy Right Kidney: No hydronephrosis. Left kidney: No hydronephrosis. Spleen: Craniocaudal length: 12.9 cm, normal. Lesions: None apparent. Ascites: None. DIVISION OF RADIOLOGY Provider, [facility] - 02/09/2025 * * *Final Report* * * DATE OF EXAM: Feb 09 2025 8:23AM [facility] 1232 - US [facility] SPLEEN -NB / PROCEDURE REASON: Diarrhea, unspecified type * * * * Physician Interpretation * * * * EXAMINATION: RIGHT UPPER QUADRANT AND SPLEEN ULTRASOUND CLINICAL HISTORY: 24 years old Female with Diarrhea, unspecified type TECHNIQUE: Sonography of the right upper quadrant and spleen was performed. Images were obtained and stored in a permanent archive. MQ: URUQ_2 COMPARISON: CT abdomen pelvis 11/23/2008 RESULT: Limitations: Suboptimal visualization due to shadowing bowel gas and ribs. Pancreas: Normal sonographic appearance of the limited visualized portion. Liver: Echotexture: Normal, homogeneous. Echogenicity: Normal Surface contour: Smooth Lesions: None apparent. Biliary: Mild central intrahepatic biliary dilation. CBD: 1.4 cm at the hilum. Gallbladder: Prior cholecystectomy Right Kidney: No hydronephrosis. Left kidney: No hydronephrosis. Spleen: Craniocaudal length: 12.9 cm, normal. Lesions: None apparent. Ascites: None. IMPRESSION IMPRESSION: Mild central intrahepatic and extrahepatic biliary ductal dilation with CBD measuring 1.4 cm, nonspecific post cholecystectomy. Correlation with LFTs and if clinically indicated MRCP could be considered for further evaluation. Steamfitter: LULÚ Transcribe Date/Time: Feb 09 2025 8:25A Dictated by : SAVANNAH MENDES DO This examination was interpreted and the report reviewed and electronically signed by: SAVANNAH MENDES DO on Feb 09 2025 8:29AM EST [place] [facility] Study observation (narrative) [facility] US ABD SPLEEN -NBon 02-10-20 US ABD SPLEEN -NB * * *Final Report* * * DATE OF EXAM: Feb 09 2025 8:23AM WRU 1232 - US ABD SPLEEN -NB / PROCEDURE REASON: Diarrhea, unspecified type * * * * Physician Interpretation * * * * EXAMINATION: RIGHT UPPER QUADRANT AND SPLEEN ULTRASOUND CLINICAL HISTORY: 24 years old Female with Diarrhea, unspecified type TECHNIQUE: Sonography of the right upper quadrant and spleen was performed. Images were obtained and stored in a permanent archive. MQ: URUQ_2 COMPARISON: CT abdomen pelvis 11/23/2008 RESULT: Limitations: Suboptimal visualization due to shadowing bowel gas and ribs. Pancreas: Normal sonographic appearance of the limited visualized portion. Liver: Echotexture: Normal, homogeneous. Echogenicity: Normal Surface contour: Smooth Lesions: None apparent. Biliary: Mild central intrahepatic biliary dilation. CBD: 1.4 cm at the hilum. Gallbladder: Prior cholecystectomy Right Kidney: No hydronephrosis. Left kidney: No hydronephrosis. Spleen: Craniocaudal length: 12.9 cm, normal. Lesions: None apparent. Ascites: None. IMPRESSION: Mild central intrahepatic and extrahepatic biliary ductal dilation with CBD measuring 1.4 cm, nonspecific post cholecystectomy. Correlation with LFTs and if clinically indicated MRCP could be considered for further evaluation. Steamfitter: LULÚ Transcribe Date/Time: Feb 09 2025 8:25A Dictated by : SAVANNAH MENDES DO This examination was interpreted and the report reviewed and electronically signed by: SAVANNAH MENDES DO on Feb 09 2025 8:29AM EST [id number] CN Normal [facility] US Abdomen RUQon 02-09-2025 * * *Final Report* * * DATE OF EXAM: Feb 09 2025 8:23AM WRU 1032 - US ABD RIGHT UPPER QUADRANT / PROCEDURE REASON: Diarrhea, unspecified type * * * * Physician Interpretation * * * * EXAMINATION: RIGHT UPPER QUADRANT AND SPLEEN ULTRASOUND CLINICAL HISTORY: 24 years old Female with Diarrhea, unspecified type TECHNIQUE: Sonography of the right upper quadrant and spleen was performed. Images were obtained and stored in a permanent archive. MQ: URUQ_2 COMPARISON: CT abdomen pelvis 11/23/2008 RESULT: Limitations: Suboptimal visualization due to shadowing bowel gas and ribs. Pancreas: Normal sonographic appearance of the limited visualized portion. Liver: Echotexture: Normal, homogeneous. Echogenicity: Normal Surface contour: Smooth Lesions: None apparent. Biliary: Mild central intrahepatic biliary dilation. CBD: 1.4 cm at the hilum. Gallbladder: Prior cholecystectomy Right Kidney: No hydronephrosis. Left kidney: No hydronephrosis. Spleen: Craniocaudal length: 12.9 cm, normal. Lesions: None apparent. Ascites: None. DIVISION OF RADIOLOGY Provider, [facility] - 02/09/2025 * * *Final Report* * * DATE OF EXAM: Feb 09 2025 8:23AM [facility]U 1032 - US [facility] RIGHT UPPER QUADRANT / PROCEDURE REASON: Diarrhea, unspecified type * * * * Physician Interpretation * * * * EXAMINATION: RIGHT UPPER QUADRANT AND SPLEEN ULTRASOUND CLINICAL HISTORY: 24 years old Female with Diarrhea, unspecified type TECHNIQUE: Sonography of the right upper quadrant and spleen was performed. Images were obtained and stored in a permanent archive. MQ: URUQ_2 COMPARISON: CT abdomen pelvis 11/23/2008 RESULT: Limitations: Suboptimal visualization due to shadowing bowel gas and ribs. Pancreas: Normal sonographic appearance of the limited visualized portion. Liver: Echotexture: Normal, homogeneous. Echogenicity: Normal Surface contour: Smooth Lesions: None apparent. Biliary: Mild central intrahepatic biliary dilation. CBD: 1.4 cm at the hilum. Gallbladder: Prior cholecystectomy Right Kidney: No hydronephrosis. Left kidney: No hydronephrosis. Spleen: Craniocaudal length: 12.9 cm, normal. Lesions: None apparent. Ascites: None. IMPRESSION IMPRESSION: Mild central intrahepatic and extrahepatic biliary ductal dilation with CBD measuring 1.4 cm, nonspecific post cholecystectomy. Correlation with LFTs and if clinically indicated MRCP could be considered for further evaluation. Steamfitter: LULÚ Transcribe Date/Time: Feb 09 2025 8:25A Dictated by : SAVANNAH MENDES DO This examination was interpreted and the report reviewed and electronically signed by: SAVANNAH MENDES DO on Feb 09 2025 8:29AM EST [place] [facility] Study observation (narrative) Samanta jaquez [facility] 12 Lead EKGon 02-07-2025 12 Lead EKG [facility] Cardiovascular Services [address] [place] [address] 12 Lead EKG 02/07/25 0043 MR#: [id number] Acct: [id number] Name: MARIANNE SAUCEDO UNRULY Rep #: [id number] : 2000 From: Landon Cr MD Attending Dr: Status: DEP ER Ordering Dr: Rojelio Bullock MD Date: 02/07/25 Location: ED Sex: F C Admitted: Test Reason : CP Blood Pressure : */* mmHG Vent. Rate : 77 BPM Atrial Rate : 77 BPM P-R Int : 172 ms QRS Dur : 80 ms QT Int : 384 ms P-R-T Axes : 13 56 22 degrees QTcB Int : 434 ms Normal sinus rhythm Normal ECG Confirmed by Landon Cr ([id number]), book or script editor ANGY FRIED ([id number]) on 02/08/2025 1:13:58 PM Referred By: Ara Confirmed By: Landon Cr 02/08/25 1314 Date Landon Cr MD CC: Dr. Rojelio Bullock MD; Dr. Francesca Gill MD Signed Normal [facility] Absolute lymphocyte countOrd ered By: Rojelio Bullock on 02-07-2025 Lymphocytes Auto (Unsp spec) [#/Vol] 3.09 10*3/uL 0.83-4.51 [facility] Absolute neutrophil countOrd ered By: Rojelio Bullock on 02-07-2025 Neutrophils (Bld) [#/Vol] 7.8 10*3/uL High 2.0-7.7 [facility] Anion gap in Serum or Plasma Ordered By: Rojelio Bullock on 02-07-2025 Anion gap [Moles/Vol] 12 mmol/L 5-15 [facility] Automated lymphocyte count a s percentage of total leukocytesOrdered By: Rojelio Bullock on 02-07-2025 Lymphocytes/100 WBC Auto (Unsp spec) 25.3 % - [facility] BUN/creatinine ratioOrdered By: Rojelio Bullock on 02-07-2025 Urea nitrogen/Creatinine [Mass ratio] 14.4 mg/mg - [facility] Basic Metabolic Profile (BMP )on 02-07-2025 BUN/CRE 14.4 RATIO Normal 05-09 [facility] Comment on above: Performed By: #### L 100.0100, L500.2500, L501.4021 #### [facility] [address] [place], [address] Calcium [Mass/Vol] 9.1 mg/dL Normal 7.6-11.0 [facility] Comment on above: Performed By: #### L 100.0100, L500.2500, L501.4021 #### [facility] [address] [place], [address] Chloride [Moles/Vol] 105 mmol/L Normal 98-108 [facility] Comment on above: Performed By: #### L 100.0100, L500.2500, L501.4021 #### [facility] [address] [place], [address] CO2 [Moles/Vol] 21.3 mmol/L Normal 21.0-32.0 [facility] Comment on above: Performed By: #### L 100.0100, L500.2500, L501.4021 #### [facility] [address] [place], [address] Creatinine [Mass/Vol] 0.70 mg/dL Normal 0.70-1.20 [facility] Comment on above: Performed By: #### L 100.0100, L500.2500, L501.4021 #### [facility] [address] [place], [address] ECRCL 141.12 ml/min Normal 50-250 [facility] Comment on above: Performed By: #### L 100.0100, L500.2500, L501.4021 #### [facility] [address] [place], [address] GAP 12 Normal 5-15 [facility] Comment on above: Performed By: #### L 100.0100, L500.2500, L501.4021 #### [facility] [address] [place], [address] GFR/1.73 sq M.predicted among non-blacks MDRD (S/P/Bld) [Vol rate/Area] 122 mL/min/{1.73_m2} Normal >60 [facility] Comment on above: Result Comment: mL/m in/1.73m2 CKD-EPI Creatinine Equation (2020) Performed By: #### L 100.0100, L500.2500, L501.4021 #### [facility] [address] [place], [address] Glucose [Mass/Vol] 98 mg/dL Normal 70-99 [facility] Comment on above: Performed By: #### L 100.0100, L500.2500, L501.4021 #### [facility] [address] [place], [address] Potassium [Moles/Vol] 3.7 mmol/L Normal 3.3-5.1 [facility] Comment on above: Performed By: #### L 100.0100, L500.2500, L501.4021 #### [facility] [address] [place], [address] Sodium [Moles/Vol] 139 mmol/L Normal 133-145 [facility] Comment on above: Performed By: #### L 100.0100, L500.2500, L501.4021 #### [facility] [address] [place], [address] Urea nitrogen [Mass/Vol] 10 mg/dL Normal 4-19 [facility] Comment on above: Performed By: #### L 100.0100, L500.2500, L501.4021 #### [facility] [address] [place], [address] Basophil percentageOrdered B y: Rojelio Bullock on 02-07-2025 Basophils/100 WBC (Bld) 0.8 % 0-1 [facility] CBC W/Diff, Automatedon 01-19 Absolute Lymph 3.09 X10 3/uL Normal 0.83-4.51 [facility] Comment on above: Performed By: #### L 100.0100, L500.2500, L501.4021 #### [facility] [address] [place], [address] Absolute Neut 7.8 X10 3/uL High 2.0-7.7 [facility] Comment on above: Performed By: #### L 100.0100, L500.2500, L501.4021 #### [facility] [address] [place], [address] Basophils/100 WBC (Bld) 0.8 % Normal 0-1 [facility] Comment on above: Performed By: #### L 100.0100, L500.2500, L501.4021 #### [facility] [address] [place], [address] Eosinophils/100 WBC (Bld) 3.5 % Normal 0-5 [facility] Comment on above: Performed By: #### L 100.0100, L500.2500, L501.4021 #### [facility] [address] [place], [address] Erythrocyte distribution width (RBC) [Ratio] 12.0 % Normal 11.6-14.6 [facility] Comment on above: Performed By: #### L 100.0100, L500.2500, L501.4021 #### [facility] [address] [place], [address] Hematocrit (Bld) [Volume fraction] 37.7 % Normal 37-47 [facility] Comment on above: Performed By: #### L 100.0100, L500.2500, L501.4021 #### [facility] [address] [place], [address] Hemoglobin (Bld) [Mass/Vol] 12.4 g/dL Normal 12.0-15.0 [facility] Comment on above: Performed By: #### L 100.0100, L500.2500, L501.4021 #### [facility] [address] [place], [address] IG% 0.300 Normal 0.0-0.9 [facility] Comment on above: Result Comment: IG% - Immature Granulocytes (promyelocytes, myelocytes and metamyelocytes) > 1% indicates that a LEFT SHIFT is Present. Performed By: #### L 100.0100, L500.2500, L501.4021 #### [facility] [address] [place], [address] Lymphocytes/100 WBC (Bld) 25.3 % Normal 19-41 [facility] Comment on above: Performed By: #### L 100.0100, L500.2500, L501.4021 #### [facility] [address] [place], [address] MCH (RBC) [Entitic mass] 29.7 pg Normal 27.0-32.0 [facility] Comment on above: Performed By: #### L 100.0100, L500.2500, L501.4021 #### [facility] [address] [place], [address] MCHC (RBC) [Mass/Vol] 32.9 g/dL Normal 32-36 [facility] Comment on above: Performed By: #### L 100.0100, L500.2500, L501.4021 #### [facility] [address] [place], [address] MCV (RBC) [Entitic vol] 90.2 fL Normal 81-99 [facility] Comment on above: Performed By: #### L 100.0100, L500.2500, L501.4021 #### [facility] [address] [place], [address] Monocytes/100 WBC (Bld) 6.4 % Normal 0-10 [facility] Comment on above: Performed By: #### L 100.0100, L500.2500, L501.4021 #### [facility] [address] [place], [address] Neutrophils/100 WBC (Bld) 63.7 % Normal 47-70 [facility] Comment on above: Performed By: #### L 100.0100, L500.2500, L501.4021 #### [facility] [address] [place], [address] Nucleated RBC (Bld) [#/Vol] 0 10*3/uL Normal 0-5 [facility] Comment on above: Performed By: #### L 100.0100, L500.2500, L501.4021 #### [facility] [address] [place], [address] Platelet mean volume (Bld) [Entitic vol] 9.9 fL Normal 6.2-12.0 [facility] Comment on above: Performed By: #### L 100.0100, L500.2500, L501.4021 #### [facility] [address] [place], [address] Platelets (Bld) [#/Vol] 295 10*3/uL Normal 150-450 [facility] Comment on above: Performed By: #### L 100.0100, L500.2500, L501.4021 #### [facility] [address] [place], [address] RBC (Bld) [#/Vol] 4.18 10*6/uL Low 4.2-5.4 [facility] Comment on above: Performed By: #### L 100.0100, L500.2500, L501.4021 #### [facility] [address], [address] RDW SD 39.6 fl Normal 35.1-43.9 [facility] Comment on above: Performed By: #### L 100.0100, L500.2500, L501.4021 #### [facility] [address] [place], [address] WBC (Bld) [#/Vol] 12.2 10*3/uL High 4.4-11.0 [facility] Comment on above: Performed By: #### L 100.0100, L500.2500, L501.4021 #### [facility] [address] [place], [address] Carbon dioxide, total [Moles /volume] in Central venous bloodOrdered By: Rojelio Bullock on 02-07-2025 CO2 [Moles/Vol] 21.3 mmol/L 21.0-32.0 [facility] Chest PA and Lateralon 02-07 Chest PA and Lateral [facility] Imaging Services [address] [place] [address] Chest PA and Lateral MR#: [id number] Acct: [id number] Name: MARIANNE SAUCEDO UNRULY Rep #: [id number] : 2000 F 24 From: Socrates Austin MD PCP: Dr. Francesca Gill MD Status: REG ER Study: Chest PA and Lateral Date of Exam: 02/07/25 Exam# [id number] Ordering Dr: Rojelio Bullock MD PROCEDURE: CHEST PA AND LATERAL 02/07/2025 REASON FOR EXAM: CHEST PAIN TECHNIQUE: CHEST PA AND LATERAL COMPARISON: 12/06/2024 FINDINGS: Normal heart size. Elevated right hemidiaphragm. Well inflated lungs. No consolidation, effusion, or pneumothorax. RAD/Chest PA and Lateral IMPRESSION: No acute chest findings Reading Location: [place] [address] CC: Dr. Rojelio Bullock MD; Dr. Francesca Gill MD Steamfitter: Signed Normal [facility] Chloride assayOrdered By: Neal Bullock on 02-07-2025 Chloride [Moles/Vol] 105 mmol/L 98-108 [facility] Emergency Department Summary on 02-07-2025 Emergency Department Summary [facility] Medical Records Department [address] [place] [address] Emergency Department Summary 02/07/25 MR#: [id number] Acct: [id number] Name: MARIANNE SAUCEDO UNRULY Rep #: [id number] : 2000 24 From: Rojelio Bullock MD PCP: Dr. Francesca Gill MD Status:REG ER Location: ED HPI History of Present Illness Chief Complaint: Chest Pain Informant: patient Narrative Narrative: Patient has been having substernal sharp nonpleuritic nonradiating chest discomfort for the past 10- 11 hours. She states she chronically has dyspnea on exertion and feels like she wheezes at times, never formally diagnosed with asthma but she has an inhaler from an episode of bronchitis and states she has used it and it has helped when she has, and does not feel like that has been any worse or different since she has had this chest discomfort today. The discomfort started while she was sitting at rest this afternoon and is persisted all evening. Not exertional. No arm jaw neck or back pain. No abdominal discomfort or nausea/vomiting. Never had this before which is why she was concerned. No history of blood clots, no leg pain or swelling, no recent immobilization, long travel, hospitalization, or surgery. No recent illness and denies a cough or hemoptysis. [facility] Medical History Physical exam, pre-employment depression Home Medications ???Medication ???Instructions ???Recorded ???Last Taken ???Type pantoprazole 40 mg tablet,delayed 40 mg PO DAILY #14 tabs 02/07/25 Unknown Rx release Allergy/AdvReac Type Severity Reaction Status Date / Time No Known Allergies Allergy Verified 02/07/25 00:45 Surgical History History of surgery Social History Smoking Status: Former smoker ROS ROS ED Constitutional Constitutional ED: Denies chills or fever(s) Eyes Eyes: Denies change in vision or diplopia ENT ENT ED: Denies rhinorrhea or sore throat Cardiovascular Cardiovascular: Reports chest pain; Denies leg edema or palpitations Respiratory/Chest Respiratory/Chest: Reports dyspnea on exertion; Denies cough or dyspnea Gastrointestinal Gastrointestinal: Denies abdominal pain, diarrhea, nausea or vomiting Genitourinary Genitourinary ED: Denies dysuria or hematuria Musculoskeletal Musculoskeletal: Denies back pain or neck pain Integumentary Denies abscess or rash Neurologic Neurologic: Denies headache(s), paresthesias or weakness Psychiatric Psychiatric: Denies anxiety or suicidal thoughts EXAM Physical Exam Const Vital Signs: 02/07/25 00:42 02/07/25 00:43 02/07/25 01:18 Temperature 98.5 F Temperature Source Oral Pulse Rate 79 Respiratory Rate 16 Respiratory Effort Normal Non-Labored Respiratory Pattern Normal Blood Pressure 118/69 Blood Pressure Mean 85 Pulse Ox 97 Oxygen Delivery Method Room Air Room Air Positive well nourished and well developed General Appearance ED: well developed and NAD HEENT Reports moist mucous membranes normocephalic and atraumatic Eyes PERRL and EOMs intact bilaterally Neck full ROM and supple Resp normal respiratory effort and clear to auscultation bilaterally Cardio regular rate, regular rhythm and no murmurs GI non-tender and non-distended Auscultation: normoactive bowel sounds Palpation: soft Back/Spine no CVA tenderness General Back: other FROM Extremity normal to inspection General Extremety ED: Negative for edema, pulses abnormal or tenderness General Extremity: Negative for edema or pulses abnormal Neuro oriented x3, CN's II-XII intact bilaterally and no sensory deficits noted Sensorium / Orientation: awake and alert Motor Exam: strength 5/5 throughout Skin no rashes or lesions noted and no wounds Heart Score History: Slightly/Non-Suspici ous ECG: Normal Age: Risk Factors: No Risk Factors Troponin: Score: 0 MDM MDM MDM Narrative Medical decision making narrative: Patient's PERC score is 0, her vital signs are normal her exam is benign she does not require further workup in order for us to rule out PE as cause of the symptoms she is reassured, her EKG is normal, I ran labs and did a two-view chest x-ray which my interpretation is normal while we gave her a GI cocktail and monitored her. The GI cocktail helped, her testing is all normal along with troponin, other blood test except for a mild nonspecific leukocytosis without a left shift. My suspicion is that this is esophageal in nature. I am going to give her a pantoprazole and a prescription for 2-week course and advised that she follow-up with her doctor. She is comfortable with that plan. Lab Da (more content not included)... Normal [facility] Eosinophil percentageOrdered By: Rojelio Bullock on 02-07-2025 Eosinophils/100 WBC (Bld) 3.5 % 0-5 [facility] Erythrocyte distribution wid th ratioOrdered By: Rojelio Bullock on 02-07-2025 Erythrocyte distribution width (RBC) [Ratio] 12.0 % 11.6-14.6 [facility] Erythrocyte distribution wid th standard deviationOrdered By: Rojelio Bullock on 02-07-2025 Erythrocyte distribution width (RBC) [Ratio] 39.6 fl 35.1-43.9 [facility] Glomerular filtration rate ( GFR) estimation/1.73 sq m using serum, plasma, or whole bOrdered By: Rojelio Bullock on 02-07-2025 GFR/1.73 sq M.predicted among non-blacks MDRD (S/P/Bld) [Vol rate/Area] 122 mL/min/{1.73_m2} >60 [facility] Comment on above: mL/min/1.73m2 CKD-EP I Creatinine Equation (2020) Hematocrit Auto (Bld) [Volum e fraction]Ordered By: Rojelio Bullock on 02-07-2025 Hematocrit (Bld) [Volume fraction] 37.7 % 37-47 [facility] Hemoglobin measurementOrdere d By: Rojelio Bullock on 02-07-2025 Hemoglobin (Bld) [Mass/Vol] 12.4 g/dL 12.0-15.0 [facility] Immature granulocytes/100 WB C Auto (Bld)Ordered By: Rojelio Bullock on 02-07-2025 Immature granulocytes/100 WBC (Bld) 0.300 % 0.0-0.9 [facility] Comment on above: IG% - Immature Granu locytes (promyelocytes, myelocytes and metamyelocytes) > 1% indicates that a LEFT SHIFT is Present. L501.4021on 02-07-2025 Trop T High Sen < 6 Normal <=14 [facility] Comment on above: Performed By: #### L 100.0100, L500.2500, L501.4021 #### [facility] [address] [place], [place] [address], [address] MCV (mean corpuscular volume ) determinationOrdered By: Rojelio Bullock on 02-07-2025 MCV (RBC) [Entitic vol] 90.2 fL 81-99 [facility] Mean corpuscular hemoglobin (MCH) determinationOrdered By: Rojelio Bullock on 02-07-2025 MCH (RBC) [Entitic mass] 29.7 pg 27.0-32.0 [facility] Mean corpuscular hemoglobin concentration (MCHC) determinationOrdered By: Rojelio Bullock on 02-07-2025 MCHC (RBC) [Mass/Vol] 32.9 g/dL 32-36 [facility] Mean platelet volume determi nationOrdered By: Rojelio Bullock on 02-07-2025 Platelet mean volume (Bld) [Entitic vol] 9.9 fL 6.2-12.0 [facility] Monocyte percentageOrdered B y: Rojelio Bullock on 02-07-2025 Monocytes/100 WBC (Bld) 6.4 % 0-10 [facility] Neutrophil percentageOrdered By: Rojelio Bullock on 02-07-2025 Neutrophils/100 WBC (Bld) 63.7 % 47-70 [facility] Nucleated red blood cell per centageOrdered By: Rojelio Bullock on 02-07-2025 Nucleated RBC/100 WBC (Bld) [Ratio] 0 % 0-5 [facility] Platelet countOrdered By: Neal Bullock on 02-07-2025 Platelets (Bld) [#/Vol] 295 10*3/uL 150-450 [facility] Potassium measurement (mass/ volume)Ordered By: Rojelio Bullock on 02-07-2025 Potassium (Unsp spec) [Mass/Vol] 3.7 mmol/L 3.3-5.1 [facility] RBC Auto (Bld) [#/Vol]Ordere d By: Rojelio Bullock on 02-07-2025 RBC (Bld) [#/Vol] 4.18 10*6/uL Low 4.2-5.4 [facility] Serum creatinine measurement (mass/volume)Ordered By: Rojelio Bullock on 02-07-2025 Creatinine [Mass/Vol] 0.70 mg/dL 0.70-1.20 [facility] Serum glucose measurement (m ass/volume)Ordered By: Rojelio Bullock on 02-07-2025 Glucose [Mass/Vol] 98 mg/dL 70-99 [facility] Serum or plasma calcium yesica urement (mass/volume)Ordered By: Rojelio Bullock on 02-07-2025 Calcium [Mass/Vol] 9.1 mg/dL 7.6-11.0 [facility] Serum or plasma urea nitroge n measurement (mass/volume)Ordered By: Rojelio Bullock on 02-07-2025 Urea nitrogen [Mass/Vol] 10 mg/dL 4-19 [facility] Sodium levelOrdered By: Ancelmo Bullock on 02-07-2025 Sodium [Moles/Vol] 139 mmol/L 133-145 [facility] Troponin T.cardiac [Mass/vol ume] in Serum or Plasma by High sensitivity methodOrdered By: Rojelio Bullock on 02-07-2025 Troponin T.cardiac High sensitivity method [Mass/Vol] < 6 ng/L <14 [facility] White blood cell (WBC) count Ordered By: Rojelio Bullock on 02-07-2025 WBC (Bld) [#/Vol] 12.2 10*3/uL High 4.4-11.0 [facility] CNOVon 02-04-2025 CNOV Office Visit (AAP) MARIANNE SAUCEDO ([id number]) 2000 F Date Time Provider Department 02/04/25 11:30 AM IRENA ESPINOZA [facility] During your visit today, we recorded the following information about you: Irena Espinoza MS 02/04/2025 3:35 PM Addendum [facility] Department of Medical Genetics Consultation Note Genetic Counselor: Irena Espinoza [place], [facility] [place]: Marianne Saucedo Patient [...] Son The patient's maternal ancestors are of [place] descent and paternal ancestors are of mixed descent. There is no known Ashkenazi Methodist ancestry. There is no known consanguinity. A [...] to discuss the relevant options. Inheritance of heredi (more content not included)... Normal [facility] AMYLASEon 01-31-2025 Amylase [Catalytic activity/Vol] 11 U/L Low 30 - 104 U/L [place] Amylase SerPl-cCncon 025 Amylase [Catalytic activity/Vol] 11 U/L Low 30-104 [facility] Comment on above: Order Comment: Jim del cid Type: BLOOD SPECIMEN Ordering Facility: [facility] Address: [address] [place] [address] Performed By: #### 5 7021-8 #### [facility] CLIA [id number] [address] [place] [address] [place] Amylase [Catalytic activity/ Vol]on 01-31-2025 Interpretation and review of laboratory results Abnormal [place] C diff Tox gens Stl Ql ROMAN+p robeon 01-31-2025 C. difficile toxin genes ROMAN+probe Ql (Stl) Negative Normal Negative for C. difficile toxin by PCR [facility] Comment on above: Order Comment: Jim del cid Type: SWAB Ordering Facility: [facility] Address: [address] [place] [address] Performed By: #### B VAMP, CVTV #### [facility] CLIA [id number] [address] [place] [address] [place] CBC W Auto Differential pane l (Bld)on 01-31-2025 Basophils (Bld) [#/Vol] 0.11 10*3/uL High [facility] Basophils/100 WBC (Bld) 1.1 % C [facility] Differential cell count method Nom (Bld) Auto [place] Eosinophils (Bld) [#/Vol] 0.28 10*3/uL [facility] [place] Eosinophils/100 WBC (Bld) 2.7 % [place] Erythrocyte distribution width (RBC) [Ratio] 12.1 % 11.5 - 15.0 % [place] Hematocrit (Bld) [Volume fraction] 42.7 % 36.0 - 46.0 % [place] Hemoglobin (Bld) [Mass/Vol] 13.9 g/dL 11.5 - 15.5 g/dL [place] Immature granulocytes (Bld) [#/Vol] 0.06 10*3/uL [facility] [place] Immature granulocytes/100 WBC (Bld) 0.6 % [place] Interpretation and review of laboratory results Abnormal [place] Lymphocytes (Bld) [#/Vol] 2.19 10*3/uL [place] Lymphocytes/100 WBC (Bld) 21 % [place] MCH (RBC) [Entitic mass] 29.5 pg 26.0 - 34.0 pg [place] MCHC (RBC) [Mass/Vol] 32.6 g/dL 30.5 - 36.0 g/dL [place] MCV (RBC) [Entitic vol] 90.7 fL 80.0 - 100.0 fL [place] Monocytes (Bld) [#/Vol] 0.69 10*3/uL [facility] Monocytes/100 WBC (Bld) 6.6 % C [facility] Neutrophils (Bld) [#/Vol] 7.12 10*3/uL [place] Neutrophils/100 WBC (Bld) 68 % [place] Nucleated RBC (Bld) [#/Vol] [facility] Nucleated RBC/100 WBC (Bld) [Ratio] 0 % /100 WBC [place] Platelet mean volume (Bld) [Entitic vol] 10.6 fL 9.0 - 12.7 fL [place] Platelets (Bld) [#/Vol] 337 10*3/uL [place] RBC (Bld) [#/Vol] 4.71 10*6/uL 3.90 - 5.2 0 m/uL [place] WBC (Bld) [#/Vol] 10.45 10*3/uL [facility] Basophils (Bld) [#/Vol] 0.11 10*3/uL High <0.11 [facility] Comment on above: Order Comment: Speci men Type: BLOOD SPECIMEN Ordering Facility: [facility] Address: [address] [place] [address] Performed By: #### 5 7021-8 #### [facility] CLIA [id number] [address] [place] [address] [place] Basophils/100 WBC (Bld) 1.1 % Normal [facility] Comment on above: Order Comment: Speci men Type: BLOOD SPECIMEN Ordering Facility: [facility] Address: [address] [place] [address] Performed By: #### 5 7021-8 #### [facility] CLIA [id number] [address] [place] [address] [place] Differential cell count method Nom (Bld) Auto Normal [facility] Comment on above: Order Comment: Speci men Type: BLOOD SPECIMEN Ordering Facility: [facility] Address: [address] [place] [address] Performed By: #### 5 7021-8 #### [facility] CLIA [id number] [address] [place] [address] [place] Eosinophils (Bld) [#/Vol] 0.28 10*3/uL Normal <0.46 [facility] Comment on above: Order Comment: Speci men Type: BLOOD SPECIMEN Ordering Facility: [facility] Address: [address] [place] [address] Performed By: #### 5 7021-8 #### [facility] CLIA [id number] [address] [place] [address] [place] Eosinophils/100 WBC (Bld) 2.7 % Normal [facility] Comment on above: Order Comment: Speci men Type: BLOOD SPECIMEN Ordering Facility: [facility] Address: [address] [place] [address] Performed By: #### 5 7021-8 #### [facility] CLIA [id number] [id number] [address] [place] Erythrocyte distribution width (RBC) [Ratio] 12.1 % Normal 11.5-15.0 [facility] Comment on above: Order Comment: Speci men Type: BLOOD SPECIMEN Ordering Facility: [facility] Address: [address] [place] [address] Performed By: #### 5 7021-8 #### [facility] CLIA [id number] [address] [place] [address] [place] Hematocrit (Bld) [Volume fraction] 42.7 % Normal 36.0-46.0 [facility] Comment on above: Order Comment: Speci men Type: BLOOD SPECIMEN Ordering Facility: [facility] Address: [address] [place] [address] Performed By: #### 5 7021-8 #### [facility] CLIA [id number] [address] [place] [address] [place] Hemoglobin (Bld) [Mass/Vol] 13.9 g/dL Normal 11.5-15.5 [facility] Comment on above: Order Comment: Speci men Type: BLOOD SPECIMEN Ordering Facility: [facility] Address: [address] [place] [address] Performed By: #### 5 7021-8 #### [facility] CLIA [id number] [address] [place] [address] [place] Immature granulocytes (Bld) [#/Vol] 0.06 10*3/uL Normal <0.10 [facility] Comment on above: Order Comment: Speci men Type: BLOOD SPECIMEN Ordering Facility: [facility] Address: [address] [place] [address] Performed By: #### 5 7021-8 #### [facility] CLIA [id number] [address] [place] [address] [place] Immature granulocytes/100 WBC (Bld) 0.6 % Normal [facility] Comment on above: Order Comment: Speci men Type: BLOOD SPECIMEN Ordering Facility: [facility] Address: [address] [place] [address] Performed By: #### 5 7021-8 #### [facility] CLIA [id number] [address] [place] [address] [place] Lymphocytes (Bld) [#/Vol] 2.19 10*3/uL Normal 1.00-4.00 [facility] Comment on above: Order Comment: Speci men Type: BLOOD SPECIMEN Ordering Facility: [facility] Address: [address] [place] [address] Performed By: #### 5 7021-8 #### [facility] CLIA [id number] [address] [place] [address] [place] Lymphocytes/100 WBC (Bld) 21.0 % Normal [facility] Comment on above: Order Comment: Speci men Type: BLOOD SPECIMEN Ordering Facility: [facility] Address: [address] [place] [address] Performed By: #### 5 7021-8 #### [facility] CLIA [id number] [address] [place] [address] [place] MCH (RBC) [Entitic mass] 29.5 pg Normal 26.0-34.0 [facility] Comment on above: Order Comment: Speci men Type: BLOOD SPECIMEN Ordering Facility: [facility] Address: [address] [place] [address] Performed By: #### 5 7021-8 #### [facility] CLIA [id number] [address] [place] [address] [place] MCHC (RBC) [Mass/Vol] 32.6 g/dL Normal 30.5-36.0 [facility] Comment on above: Order Comment: Speci men Type: BLOOD SPECIMEN Ordering Facility: [facility] Address: [address] [place] [address] Performed By: #### 5 7021-8 #### [facility] CLIA [id number] [address] [place] [address] [place] MCV (RBC) [Entitic vol] 90.7 fL Normal 80.0-100.0 C [facility] Comment on above: Order Comment: Speci men Type: BLOOD SPECIMEN Ordering Facility: [facility] Address: [address] [place] [address] Performed By: #### 5 7021-8 #### [facility] CLIA [id number] [address] [place] [address] [place] Monocytes (Bld) [#/Vol] 0.69 10*3/uL Normal <0.87 [facility] Comment on above: Order Comment: Speci men Type: BLOOD SPECIMEN Ordering Facility: [facility] Address: [address] [place] [address] Performed By: #### 5 7021-8 #### [facility] CLIA [id number] [address] [place] [address] [place] Monocytes/100 WBC (Bld) 6.6 % Normal [facility] Comment on above: Order Comment: Speci men Type: BLOOD SPECIMEN Ordering Facility: [facility] Address: [address] [place] [address] Performed By: #### 5 7021-8 #### [facility] CLIA [id number] [address] [place] [address] [place] Neutrophils (Bld) [#/Vol] 7.12 10*3/uL Normal 1.45-7.50 [facility] Comment on above: Order Comment: Speci men Type: BLOOD SPECIMEN Ordering Facility: [facility] Address: [address] [place] [address] Performed By: #### 5 7021-8 #### [facility] CLIA [id number] [address] [place] [address] [place] Neutrophils/100 WBC (Bld) 68.0 % Normal [facility] Comment on above: Order Comment: Speci men Type: BLOOD SPECIMEN Ordering Facility: [facility] Address: [address] [place] [address] Performed By: #### 5 7021-8 #### [facility] CLIA [id number] [address] [place] [address] [place] Nucleated RBC (Bld) [#/Vol] 10*3/uL Normal <0.01 [facility] Comment on above: Order Comment: Speci men Type: BLOOD SPECIMEN Ordering Facility: [facility] Address: [address] [place] [address] Performed By: #### 5 7021-8 #### [facility] CLIA [id number] [address] [place] [address] [place] Nucleated RBC/100 WBC (Bld) [Ratio] 0.0 /100 WBC Normal [facility] Comment on above: Order Comment: Speci men Type: BLOOD SPECIMEN Ordering Facility: [facility] Address: [address] [place] [address] Performed By: #### 5 7021-8 #### [facility] CLIA [id number] [address] [place] [address] [place] Platelet mean volume (Bld) [Entitic vol] 10.6 fL Normal 9.0-12.7 [facility] Comment on above: Order Comment: Speci men Type: BLOOD SPECIMEN Ordering Facility: [facility] Address: [address] [place] [address] Performed By: #### 5 7021-8 #### [facility] CLIA [id number] [address] [place] [address] [place] Platelets (Bld) [#/Vol] 337 10*3/uL Normal 150-400 [facility] Comment on above: Order Comment: Speci men Type: BLOOD SPECIMEN Ordering Facility: [facility] Address: [address] [place] [address] Performed By: #### 5 7021-8 #### [facility] CLIA [id number] [address] [place] [address] [place] RBC (Bld) [#/Vol] 4.71 10*6/uL Normal 3.90-5.20 [facility] Comment on above: Order Comment: Speci men Type: BLOOD SPECIMEN Ordering Facility: [facility] Address: [address] [place] [address] Performed By: #### 5 7021-8 #### [facility] CLIA [id number] [address] [place] [address] [place] WBC (Bld) [#/Vol] 10.45 10*3/uL Normal 3.70-11.00 [facility] Comment on above: Order Comment: Speci men Type: BLOOD SPECIMEN Ordering Facility: [facility] Address: [address] [place] [address] Performed By: #### 5 7021-8 #### [facility] CLIA [id number] [address] [place] [address] [place] CNOVon 01-31-2025 CNOV Office Visit (FADIA) DANIELEJMARIANNE A ([id number]) 2000 F Date Time Provider Department 01/31/25 11:00 AM SAM OSBORNE During your visit today, we recorded the following information about you: Pulse Blood pressure Weight 75/minute 96/74 100 kg Sam Osborne APRN.ROTATING EQUIPMENT SPECIALIST 01/31/2025 11:04 AM Signed Chief Complaint Patient presents with: Diarrhea: X 2 months Headache: X 1 day HPI Marianneneha Saucedo is a 24 year old female who presents here today for Above Complaints. Patient presents for diarrhea x2 months. Denies abd pain, n/v, fever, chills. 5-6 BM per day, color is variable. Reports loader happen anytime but does happen within 30 minutes of eating. No antibiotic use prior to start of diarrhea. Past medical history, appointments, medications, allergies reviewed. 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 ([facility]) 05/10/2016 Constipation 11/08/2011 depression counseling only NEGATIVE MEDICAL HISTORY normal color vision Pancreatitis ([facility]) with gallbladder issues depression Strep throat recurrent, [...] - XR ABDOMEN 1V SUPINE Sam Osborne APRN.ROTATING EQUIPMENT SPECIALIST Darin Walker 01/31/2025 8:44 PM Signed Addended by: DARIN WALKER on: 01/31/2025 08:44 PM Modules accepted: Orders Allergies As of Date: 01/31/2025 (No Known Allergies) Date Reviewed: 01/31/2025 Reviewed by: Brooklyn Gonsalez MA - Fully Assessed Reason for Visit: Diarrhea [35] Cmt: X 2 months Headache [52] Cmt: X 1 day Primary Visit Diagnosis:Diarrhea, unspecified type [R19.7] Order(s):ENTERIC BACTERIAL PANEL BY PCR [SQSTLPCR] Order #: [id number]. #:[id number] CLOSTRIDIUM DIFFICILE TOXIN BY PCR [SQCDPCR] Order #: [id number]. #:[id number] COMPLETE BLOOD COUNT AND DIFFERENTIAL [SQCBCDIF] Order #: [id number] FUTURE COMPREHENSIVE METABOLIC PANEL [SQCMP] Order #: [id number] FUTURE LIPASE [SQLIPA] Order #: [id number] FUTURE AMYLASE [SQAMYL] Order #: [id number] FUTURE XR ABDOMEN 1V SUPINE [[id number]] O (more content not included)... Normal [facility] Comprehensive metabolic 2000 panelon 01-31-2025 Albumin [Mass/Vol] 4.3 g/dL 3.9 - 4.9 g/dL [facility] ALP [Catalytic activity/Vol] 89 U/L 34 - 123 U/L [place] ALT [Catalytic activity/Vol] 18 U/L 7 - 38 U/L [place] Anion gap [Moles/Vol] 11 mmol/L 8 - 15 mmol/L [place] AST [Catalytic activity/Vol] 17 U/L 13 - 35 U/L [place] Bilirubin [Mass/Vol] 0.3 mg/dL 0.2 - 1.3 mg/dL [place] Calcium [Mass/Vol] 9.6 mg/dL 8.5 - 10. 2 mg/dL [place] Chloride [Moles/Vol] 103 mmol/L 98 - 107 mmol/L [place] CO2 [Moles/Vol] 22 mmol/L 22 - 30 mmol/L [facility] Creatinine [Mass/Vol] 0.72 mg/dL 0.58 - 0.96 mg/dL [place] GFR/1.73 sq M.predicted among non-blacks MDRD (S/P/Bld) [Vol rate/Area] 119 mL/min/{1.73_m2} - PINF [place] Comment on above: Estimated Glomerular Filtration Rate [...] [Mass/Vol] 88 mg/dL 74 - 99 mg/dL [facility] Comment on above: The [place] Diabete s Association (ADA) provides guidance for [...] Standards of Medical Care in Diabetes 2016, [place] [employer] Association. Diabetes Care. 2016.39(Suppl 1). Potassium [Moles/Vol] 4.2 mmol/L 3.7 - 5.1 mmol/L [place] Protein [Mass/Vol] 7.5 g/dL 6.3 - 8.0 g/dL [facility] Sodium [Moles/Vol] 136 mmol/L 136 - 144 mmol/L [place] Urea nitrogen [Mass/Vol] 14 mg/dL 7 - 21 mg/d L [place] Albumin [Mass/Vol] 4.3 g/dL Normal 3.9-4.9 [facility] Comment on above: Order Comment: Speci men Type: BLOOD SPECIMEN Ordering Facility: [facility] Address: [address] [place] [address] Performed By: #### 5 7021-8 #### [facility] CLIA [id number] [address] [place] [address] [place] ALP [Catalytic activity/Vol] 89 U/L Normal 34-123 [facility] Comment on above: Order Comment: Speci men Type: BLOOD SPECIMEN Ordering Facility: [facility] Address: [address] [place] [address] Performed By: #### 5 7021-8 #### [facility] CLIA [id number] [address] [place] [address] [place] ALT [Catalytic activity/Vol] 18 U/L Normal 7-38 [facility] Comment on above: Order Comment: Speci men Type: BLOOD SPECIMEN Ordering Facility: [facility] Address: [address] [place] [address] Performed By: #### 5 7021-8 #### [facility] CLIA [id number] [address] [place] [address] [place] Anion gap [Moles/Vol] 11 mmol/L Normal 8-15 [facility] Comment on above: Order Comment: Speci men Type: BLOOD SPECIMEN Ordering Facility: [facility] Address: [address] [place] [address] Performed By: #### 5 7021-8 #### [facility] CLIA [id number] [address] [place] [address] [place] AST [Catalytic activity/Vol] 17 U/L Normal 13-35 [facility] Comment on above: Order Comment: Speci men Type: BLOOD SPECIMEN Ordering Facility: [facility] Address: [address] [place] [address] Performed By: #### 5 7021-8 #### [facility] CLIA [id number] [address] [place] [address] [place] Bilirubin [Mass/Vol] 0.3 mg/dL Normal 0.2-1.3 [facility] Comment on above: Order Comment: Speci men Type: BLOOD SPECIMEN Ordering Facility: [facility] Address: [address] [place] [address] Performed By: #### 5 7021-8 #### [facility] CLIA [id number] [address] [place] [address] [place] Calcium [Mass/Vol] 9.6 mg/dL Normal 8.5-10.2 [facility] Comment on above: Order Comment: Speci men Type: BLOOD SPECIMEN Ordering Facility: [facility] Address: [address] [place] [address] Performed By: #### 5 7021-8 #### [facility] CLIA [id number] [address] [place] [address] [place] Chloride [Moles/Vol] 103 mmol/L Normal 98-107 [facility] Comment on above: Order Comment: Speci men Type: BLOOD SPECIMEN Ordering Facility: [facility] Address: [address] [place] [address] Performed By: #### 5 7021-8 #### [facility] CLIA [id number] [address] [place] [address] [place] CO2 [Moles/Vol] 22 mmol/L Normal 22-30 [facility] Comment on above: Order Comment: Speci nehemias Type: BLOOD SPECIMEN Ordering Facility: [facility] Address: [address] [place] [address] Performed By: #### 5 7021-8 #### [facility] CLIA [id number] [address] [place] [address] [place] Creatinine [Mass/Vol] 0.72 mg/dL Normal 0.58-0.96 [facility] Comment on above: Order Comment: Speci men Type: BLOOD SPECIMEN Ordering Facility: [facility] Address: [address] [place] [address] Performed By: #### 5 7021-8 #### [facility] CLIA [id number] [address] [place] [address] [place] Creatinine and Glomerular filtration rate.predicted panel (S/P/Bld) 119 mL/min/1.73m??? Normal >=60 [facility] Comment on above: Order Comment: Luciei men Type: BLOOD SPECIMEN Ordering Facility: [facility] Address: [address] [place] [address] Result Comment: Bouchra mated Glomerular Filtration Rate [...] accurately reflect actual GFR. Performed By: #### 5 7021-8 #### [facility] CLIA [id number] [address] [place] [address] [place] Glucose [Mass/Vol] 88 mg/dL Normal 74-99 [facility] Comment on above: Order Comment: Luciei men Type: BLOOD SPECIMEN Ordering Facility: [facility] Address: [address] [place] [id number] Result Comment: The [place] Diabetes Association (ADA) provides guidance for cutoff [...] Standards of Medical Care in Diabetes 2016, [place] [employer]. Diabetes Care. 2016.39(Suppl 1). Performed By: #### 5 7021-8 #### [facility] CLIA [id number] [address] [place] [address] [place] Potassium [Moles/Vol] 4.2 mmol/L Normal 3.7-5.1 [facility] Comment on above: Order Comment: Speci men Type: BLOOD SPECIMEN Ordering Facility: [facility] Address: [address] [place] [address] Performed By: #### 5 7021-8 #### [facility] CLIA [id number] [address] [place] [address] [place] Protein [Mass/Vol] 7.5 g/dL Normal 6.3-8.0 [facility] Comment on above: Order Comment: Speci men Type: BLOOD SPECIMEN Ordering Facility: [facility] Address: [address] [place] [address] Performed By: #### 5 7021-8 #### [facility] CLIA [id number] [address] [place] [address] [place] Sodium [Moles/Vol] 136 mmol/L Normal 136-144 [facility] Comment on above: Order Comment: Speci men Type: BLOOD SPECIMEN Ordering Facility: [facility] Address: [address] [place] [address] Performed By: #### 5 7021-8 #### [facility] CLIA [id number] [address] [place] [address] [place] Urea nitrogen [Mass/Vol] 14 mg/dL Normal 7-21 [facility] Comment on above: Order Comment: Speci men Type: BLOOD SPECIMEN Ordering Facility: [facility] Address: [address] [place] [address] Performed By: #### 5 7021-8 #### [facility] CLIA [id number] [address] [place] [address] [place] Gastrointestinal pathogens i dentified ROMAN+probe Nom (Stl)on 01-31-2025 Campylobacter sp DNA ROMAN+probe Nom (Unsp spec) Not detected Normal Not Detected [facility] Comment on above: Order Comment: Speci men Type: SWAB Ordering Facility: [facility] Address: [address] [place] [address] Performed By: #### B VAMP, CVTV #### [facility] CLIA [id number] [address] [place] [address] [place] Salmonella sp DNA ROMAN+probe Ql (Unsp spec) Not detected Normal Not Detected [facility] Comment on above: Order Comment: Speci men Type: SWAB Ordering Facility: [facility] Address: [address] [place] [address] Performed By: #### Hakan VAMP, CVTV #### [facility] CLIA [id number] [address] [place] [address] [place] Shiga toxin stx gene ROMAN+probe Nom (Unsp spec) Not detected Normal Not Detected [facility] Comment on above: Order Comment: Speci men Type: SWAB Ordering Facility: [facility] Address: [address] [place] [address] Performed By: #### B VAMP, CVTV #### [facility] CLIA [id number] [address] [place] [address] [place] Shigella sp DNA ROMAN+probe Ql (Unsp spec) Not detected Normal Not Detected [facility] Comment on above: Order Comment: Speci men Type: SWAB Ordering Facility: [facility] Address: [address] [place] [address] Performed By: #### B VAMP, CVTV #### [facility] CLIA [id number] [address] [place] [address] [place] LIPASEon 01-31-2025 Lipase [Catalytic activity/Vol] 24 U/L 16 - 61 U/L [place] Lipase SerPl-cCncon 02-01-20 25 Lipase [Catalytic activity/Vol] 24 U/L Normal 16-61 [facility] Comment on above: Order Comment: Speci men Type: BLOOD SPECIMEN Ordering Facility: [facility] Address: [address] [place] [address] Performed By: #### 5 7021-8 #### [facility] CLIA [id number] [address] [place] [address] [place] No Panel Informationon 01-31 Interpretation and review of laboratory results Normal [facility] XR ABDOMEN 1V SUPINEon 01-31 XR [...] ornament present IMPRESSION: Nonobstructive bowel gas pattern Steamfitter: LULÚ Transcribe Date/Time: Jan 31 2025 12:23P Dictated by : CHRISTELLE ISABEL MD This examination was interpreted and the report reviewed and electronically signed by: CHRISTELLE ISABEL MD on Jan 31 2025 12:23PM EST [id number] CN Normal [facility] XR Abdomen Supine and Uprigh ton 01-31-2025 IMPRESSION: Nonobstructive bowel gas pattern Steamfitter: [facility] Transcribe Date/Time: Jan 31 2025 12:23P Dictated by : CHRISTELLE ISABEL MD This examination was interpreted and the report reviewed and electronically signed by: CHRISTELLE SIABEL MD on Jan 31 2025 12:23PM EST [...] Umbilical ornament present DIVISION OF RADIOLOGY Provider, [facility] [place] - 01/31/2025 * * *Final Report* * [...] present IMPRESSION IMPRESSION: Nonobstructive bowel gas pattern [facility] Transcribe Date/Time: Jan 31 2025 12:23P Dictated by : CHRISTELLE ISABEL MD This examination was interpreted and the report reviewed and electronically signed by: CHRISTELLE ISABEL MD on Jan 31 2025 12:23PM EST [place] [facility] Study observation (narrative) [facility] XR Abdomen Supine and Uprigh tOrdered By: [facility] Provider on 01-31-2025 [place] CNOVon 01-27-2025 CNOV Office Visit ([facility]) MARIANNE SAUCEDO ([id number]) 2000 F Date Time Provider Department 01/27/25 1:45 PM NIKITA DANIELS [facility] During your visit today, we recorded the following information about you: Temperature Pulse Respiration Blood pressure 98.3 degrees 76/minute 18/minute 110/75 Weight 102 kg Nikita Daniels MD 01/27/2025 1:52 PM Signed [facility] Subjective Marianne Saucedo is [...] Diagnosis:Sore throat [J02.9] Order(s):STREP A MOLECULAR (POC) [3239065] Order #: [id number]. #:[id number] Prescriptions as of 02/03/2025 - fluticasone (FLONASE) [...] Noted Resolved Constipation [K59.00] 11/08/2011 11/16/2014 Teen [[id number]] 11/16/2014 02/08/2016 Patient requested diagnostic testing [Z01.89] [...] infection [Z (more content not included)... Normal [facility] STREP A MOLECULAR (POC)on Procedural Control Valid [facility] Strep A (POCT) Negative Negative [facility] ALGN RESP DISEASE PROF REG 5 on 12-23-2024 A. alternata IgE Qn (S) <0.35 Normal <0.35 C [facility] Comment on above: Order Comment: Speci men Type: SWAB Ordering Facility: [facility] Address: [address] [place] [address] Performed By: #### B VAMP, CVTV #### [facility] CLIA [id number] [address] [place] [address] [place] [address] [place] A. alternata IgE RAST class (S) Class 0 Normal Class 0 [facility] Comment on above: Order Comment: Speci men Type: SWAB Ordering Facility: [facility] Address: [address] [place] [address] Performed By: #### B VAMP, CVTV #### [facility] CLIA [id number] [address] [place] [address] [place] A. fumigatus IgE Qn (S) <0.35 Normal <0.35 [facility] Comment on above: Order Comment: Speci men Type: SWAB Ordering Facility: [facility] Address: [address] [place] [address] Performed By: #### B VAMP, CVTV #### [facility] CLIA [id number] [address] [place] [address] [place] A. fumigatus IgE RAST class (S) Class 0 Normal Class 0 [facility] Comment on above: Order Comment: Speci men Type: SWAB Ordering Facility: [facility] Address: [address] [place] [address] Performed By: #### B VAMP, CVTV #### [facility] CLIA [id number] [address] [place] [address] [place] house dust mite IgE Qn (S) <0.35 Normal <0.35 [facility] Comment on above: Order Comment: Speci men Type: SWAB Ordering Facility: [facility] Address: [address] [place] [address] Performed By: #### B VAMP, CVTV #### [facility] CLIA [id number] [address] [place] [address] [place] house dust mite IgE RAST class (S) Class 0 Normal Class 0 [facility] Comment on above: Order Comment: Speci men Type: SWAB Ordering Facility: [facility] Address: [address] [place] [address] Performed By: #### B VAMP, CVTV #### [facility] CLIA [id number] [address] [place] [address] [place] Bermuda grass IgE Qn (S) <0.35 Normal <0.35 [facility] Comment on above: Order Comment: Speci men Type: SWAB Ordering Facility: [facility] Address: [address] [place] [address] Performed By: #### B VAMP, CVTV #### [facility] CLIA [id number] [address] [place] [address] [place] Bermuda grass IgE RAST class (S) Class 0 Normal Class 0 [facility] Comment on above: Order Comment: Speci men Type: SWAB Ordering Facility: [facility] Address: [address] [place] [address] Performed By: #### B VAMP, CVTV #### [facility] CLIA [id number] [address] [place] [address] [place] Boxelder IgE Qn (S) <0.35 Normal <0.35 [facility] Comment on above: Order Comment: Speci men Type: SWAB Ordering Facility: [facility] Address: [address] [place] [address] Performed By: #### B VAMP, CVTV #### [facility] CLIA [id number] [address] [place] [address] [place] Boxelder IgE RAST class (S) Class 0 Normal Class 0 [facility] Comment on above: Order Comment: Speci men Type: SWAB Ordering Facility: [facility] Address: [address] [place] [address] Performed By: #### B VAMP, CVTV #### [facility] CLIA [id number] [address] [place] [address] [place] C. herbarum IgE Qn (S) <0.35 Normal <0.35 [facility] Comment on above: Order Comment: Speci men Type: SWAB Ordering Facility: [facility] Address: [address] [place] [address] Performed By: #### B VAMP, CVTV #### [facility] CLIA [id number] [address] [place] [address] [place] C. herbarum IgE RAST class (S) Class 0 Normal Class 0 [facility] Comment on above: Order Comment: Speci men Type: SWAB Ordering Facility: [facility] Address: [address] [place] [address] Performed By: #### B VAMP, CVTV #### [facility] CLIA [id number] [address] [place] [address] [place] Cat dander IgE Qn (S) <0.35 Normal <0.35 [facility] Comment on above: Order Comment: Speci men Type: SWAB Ordering Facility: [facility] Address: [address] [place] [address] Performed By: #### B VAMP, CVTV #### [facility] CLIA [id number] [address] [place] [address] [place] Cat dander IgE RAST class (S) Class 0 Normal Class 0 [facility] Comment on above: Order Comment: Speci men Type: SWAB Ordering Facility: [facility] Address: [address] [place] [address] Performed By: #### B VAMP, CVTV #### [facility] CLIA [id number] [address] [place] [address] [place] Cocklebur IgE Qn (S) <0.35 Normal <0.35 [facility] Comment on above: Order Comment: Speci men Type: SWAB Ordering Facility: [facility] Address: [address] [place] [address] Performed By: #### B VAMP, CVTV #### [facility] CLIA [id number] [address] [place] [address] [place] Cocklebur IgE RAST class (S) Class 0 Normal Class 0 [facility] Comment on above: Order Comment: Speci men Type: SWAB Ordering Facility: [facility] Address: [address] [place] [address] Performed By: #### B VAMP, CVTV #### [facility] CLIA [id number] [address] [place] [address] [place] Cockroach IgE Qn (S) <0.35 Normal <0.35 [facility] Comment on above: Order Comment: Speci men Type: SWAB Ordering Facility: [facility] Address: [address] [place] [address] Performed By: #### B VAMP, CVTV #### [facility] CLIA [id number] [address] [place] [address] [place] Cockroach IgE RAST class (S) Class 0 Normal Class 0 [facility] Comment on above: Order Comment: Speci men Type: SWAB Ordering Facility: [facility] Address: [address] [place] [address] Performed By: #### B VAMP, CVTV #### [facility] CLIA [id number] [address] [place] [address] [place] Common Pigweed IgE Qn (S) <0.35 Normal <0.35 [facility] Comment on above: Order Comment: Speci men Type: SWAB Ordering Facility: [facility] Address: [address] [place] [address] Performed By: #### B VAMP, CVTV #### [facility] CLIA [id number] [address] [place] [address] [place] Common Pigweed IgE RAST class (S) Class 0 Normal Class 0 [facility] Comment on above: Order Comment: Speci men Type: SWAB Ordering Facility: [facility] Address: [address] [place] [address] Performed By: #### B VAMP, CVTV #### [facility] CLIA [id number] [address] [place] [address] [place] Common Ragweed IgE Qn (S) <0.35 Normal <0.35 [facility] Comment on above: Order Comment: Speci men Type: SWAB Ordering Facility: [facility] Address: [address] [place] [address] Performed By: #### B VAMP, CVTV #### [facility] CLIA [id number] [address] [place] [address] [place] Common Ragweed IgE RAST class (S) Class 0 Normal Class 0 [facility] Comment on above: Order Comment: Speci men Type: SWAB Ordering Facility: [facility] Address: [address] [place] [address] Performed By: #### B VAMP, CVTV #### [facility] CLIA [id number] [address] [place] [address] [place] Island IgE Qn (S) <0.35 Normal <0.35 [facility] Comment on above: Order Comment: Speci men Type: SWAB Ordering Facility: [facility] Address: [address] [place] [address] Performed By: #### B VAMP, CVTV #### [facility] CLIA [id number] [address] [place] [address] [place] Island IgE RAST class (S) Class 0 Normal Class 0 [facility] Comment on above: Order Comment: Speci men Type: SWAB Ordering Facility: [facility] Address: [address] [place] [address] Performed By: #### B VAMP, CVTV #### [facility] CLIA [id number] [address] [place] [address] [place] Dog dander IgE Qn (S) <0.35 Normal <0.35 [facility] Comment on above: Order Comment: Speci men Type: SWAB Ordering Facility: [facility] Address: [address] [place] [address] Performed By: #### B VAMP, CVTV #### [facility] CLIA [id number] [address] [place] [address] [place] Dog dander IgE RAST class (S) Class 0 Normal Class 0 [facility] Comment on above: Order Comment: Speci men Type: SWAB Ordering Facility: [facility] Address: [address] [place] [address] Performed By: #### B VAMP, CVTV #### [facility] CLIA [id number] [address] [place] [address] [place] Hungarian plantain IgE Qn (S) <0.35 Normal <0.35 [facility] Comment on above: Order Comment: Speci men Type: SWAB Ordering Facility: [facility] Address: [address] [place] [address] Performed By: #### B VAMP, CVTV #### [facility] CLIA [id number] [address] [place] [address] [place] Hungarian plantain IgE RAST class (S) Class 0 Normal Class 0 [facility] Comment on above: Order Comment: Speci men Type: SWAB Ordering Facility: [facility] Address: [address] [place] [address] Performed By: #### B VAMP, CVTV #### [facility] CLIA [id number] [address] [place] [address] [place] house dust mite IgE Qn (S) <0.35 Normal <0.35 [facility] Comment on above: Order Comment: Speci men Type: SWAB Ordering Facility: [facility] Address: [address] [place] [address] Performed By: #### B VAMP, CVTV #### [facility] CLIA [id number] [address] [place] [address] [place] house dust mite IgE RAST class (S) Class 0 Normal Class 0 [facility] Comment on above: Order Comment: Speci men Type: SWAB Ordering Facility: [facility] Address: [address] [place] [address] Performed By: #### B VAMP, CVTV #### [facility] CLIA [id number] [address] [place] [address] [place] Goosefoot IgE Qn (S) <0.35 Normal <0.35 [facility] Comment on above: Order Comment: Speci men Type: SWAB Ordering Facility: [facility] Address: [address] [place] [address] Performed By: #### B VAMP, CVTV #### [facility] CLIA [id number] [address] [place] [address] [place] Goosefoot IgE RAST class (S) Class 0 Normal Class 0 [facility] Comment on above: Order Comment: Speci men Type: SWAB Ordering Facility: [facility] Address: [address] [place] [address] Performed By: #### B VAMP, CVTV #### [facility] CLIA [id number] [address] [place] [address] [place] Priyank grass smut IgE Qn (S) <0.35 Normal <0.35 [facility] Comment on above: Order Comment: Speci men Type: SWAB Ordering Facility: [facility] Address: [address] [place] [address] Performed By: #### B VAMP, CVTV #### [facility] CLIA [id number] [address] [place] [address] [place] Priyank grass smut IgE RAST class (S) Class 0 Normal Class 0 [facility] Comment on above: Order Comment: Speci men Type: SWAB Ordering Facility: [facility] Address: [address] [place] [address] Performed By: #### B VAMP, CVTV #### [facility] CLIA [id number] [address] [place] [address] [place] Mosher Plane IgE Qn (S) <0.35 Normal <0.35 C [facility] Comment on above: Order Comment: Speci men Type: SWAB Ordering Facility: [facility] Address: [address] [place] [address] Performed By: #### B VAMP, CVTV #### [facility] CLIA [id number] [address] [place] [address] [place] Ronda Plane IgE RAST class (S) Class 0 Normal Class 0 [facility] Comment on above: Order Comment: Speci men Type: SWAB Ordering Facility: [facility] Address: [address] [place] [address] Performed By: #### B VAMP, CVTV #### [facility] CLIA [id number] [address] [place] [address] [place] [facility] Elder IgE Qn (S) <0.35 Normal <0.35 [facility] Comment on above: Order Comment: Speci men Type: SWAB Ordering Facility: [facility] Address: [address] [place] [address] Performed By: #### B VAMP, CVTV #### [facility] CLIA [id number] [address] [place] [address] [place] Elder IgE RAST class (S) Class 0 Normal Class 0 [facility] Comment on above: Order Comment: Speci men Type: SWAB Ordering Facility: [facility] Address: [address] [place] [address] Performed By: #### B VAMP, CVTV #### [facility] CLIA [id number] [address] [place] [address] [place] Mouse urine proteins IgE Qn (S) <0.35 Normal <0.35 [facility] Comment on above: Order Comment: Speci men Type: SWAB Ordering Facility: [facility] Address: [address] [place] [address] Performed By: #### B VAMP, CVTV #### [facility] CLIA [id number] [address] [place] [address] [place] Mouse urine proteins IgE RAST class (S) Class 0 Normal Class 0 [facility] Comment on above: Order Comment: Speci men Type: SWAB Ordering Facility: [facility] Address: [address] [place] [address] Performed By: #### B VAMP, CVTV #### [facility] CLIA [id number] [address] [place] [address] [place] Pecan or [place] Tree IgE Qn (S) <0.35 Normal <0.35 [facility] Comment on above: Order Comment: Speci men Type: SWAB Ordering Facility: [facility] Address: [address] [place] [address] Performed By: #### B VAMP, CVTV #### [facility] CLIA [id number] [address] [place] [address] [place] Pecan or [place] Tree IgE RAST class (S) Class 0 Normal Class 0 [facility] Comment on above: Order Comment: Speci men Type: SWAB Ordering Facility: [facility] Address: [address] [place] [address] Performed By: #### B VAMP, CVTV #### [facility] CLIA [id number] [address] [place] [address] [place] Sheep Gillham IgE Qn (S) <0.35 Normal <0.35 [facility] Comment on above: Order Comment: Speci men Type: SWAB Ordering Facility: [facility] Address: [address] [place] [address] Performed By: #### B VAMP, CVTV #### [facility] CLIA [id number] [address] [place] [address] [place] Sheep Gill[place] IgE RAST class (S) Class 0 Normal Class 0 [facility] Comment on above: Order Comment: Speci men Type: SWAB Ordering Facility: [facility] Address: [address] [place] [address] Performed By: #### B VAMP, CVTV #### [facility] CLIA [id number] [address] [place] [address] [place] Silver Birch IgE Qn (S) <0.35 Normal <0.35 [facility] Comment on above: Order Comment: Speci men Type: SWAB Ordering Facility: [facility] Address: [address] [place] [address] Performed By: #### B VAMP, CVTV #### [facility] CLIA [id number] [address] [place] [address] [place] Silver Birch IgE RAST class (S) Class 0 Normal Class 0 [facility] Comment on above: Order Comment: Speci men Type: SWAB Ordering Facility: [facility] Address: [address] [place] [address] Performed By: #### B VAMP, CVTV #### [facility] CLIA [id number] [address] [place] [address] [place] Jasmina IgE Qn (S) <0.35 Normal <0.35 [facility] Comment on above: Order Comment: Speci men Type: SWAB Ordering Facility: [facility] Address: [address] [place] [address] Performed By: #### B VAMP, CVTV #### [facility] CLIA [id number] [address] [place] [address] [place] Jasmina IgE RAST class (S) Class 0 Normal Class 0 [facility] Comment on above: Order Comment: Speci men Type: SWAB Ordering Facility: [facility] Address: [address] [place] [address] Performed By: #### B VAMP, CVTV #### [facility] CLIA [id number] [address] [place] [address] [place] IgE Qn (S) <0.35 Normal <0.35 [facility] Comment on above: Order Comment: Speci men Type: SWAB Ordering Facility: [facility] Address: [address] [place] [address] Performed By: #### B VAMP, CVTV #### [facility] CLIA [id number] [address] [place] [address] [place] IgE RAST class (S) Class 0 Normal Class 0 [facility] Comment on above: Order Comment: Speci men Type: SWAB Ordering Facility: [facility] Address: [address] [place] [address] Performed By: #### B VAMP, CVTV #### [facility] CLIA [id number] [address] [place] [address] [place] IgE Qn (S) <0.35 Normal <0.35 [facility] Comment on above: Order Comment: Speci men Type: SWAB Ordering Facility: [facility] Address: [address] [place], [place] [address] Performed By: #### B VAMP, CVTV #### [facility] CLIA [id number] [address] [place] [address] [place]m IgE RAST class (S) Class 0 Normal Class 0 [facility] Comment on above: Order Comment: Speci men Type: SWAB Ordering Facility: [facility] Address: [address] [place] [address] Performed By: #### B VAMP, CVTV #### [facility] CLIA [id number] [address] [place] [address] [place] White mulberry IgE Qn (S) <0.35 Normal <0.35 [facility] Comment on above: Order Comment: Speci men Type: SWAB Ordering Facility: [facility] Address: [address] [place] [address] Performed By: #### B VAMP, CVTV #### [facility] CLIA [id number] [address] [place] [address] [place] White mulberry IgE RAST class (S) Class 0 Normal Class 0 [facility] Comment on above: Order Comment: Speci men Type: SWAB Ordering Facility: [facility] Address: [address] [place] [address] Performed By: #### B VAMP, CVTV #### [facility] CLIA [id number] [address] [place] [address] [place] Doran IgE Qn (S) <0.35 Normal <0.35 [facility] Comment on above: Order Comment: Speci men Type: SWAB Ordering Facility: [facility] Address: [address] [place] [address] Performed By: #### B VAMP, CVTV #### [facility] CLIA [id number] [address] [place] [address] [place] Doran IgE RAST class (S) Class 0 Normal Class 0 [facility] Comment on above: Order Comment: Speci men Type: SWAB Ordering Facility: [facility] Address: [address] [place] [address] Performed By: #### B VAMP, CVTV #### [facility] CLIA [id number] [address] [place] [address] [place] ALLERGEN SKIN TEST-FOODon FOOD ALLERGEN [...] = 0 mm F = 3 mm [place] ALLERGEN SKIN TEST-INHALANT 40on 12-23-2024 INHALANT 40 [...] 0 mm F = 3 mm Beech, North Korean 1:20 P: W = 0 mm F = 3 mm Birch Mix 1:20 P: W = 0 mm F = 3 mm Maple Mix 1:20 P: W = 0 mm F = 3 mm Island ,Eastern 1:20 P: W = 0 mm F = 3 mm Gran[place], Shagbark 1:20 P: W = 0 mm F = 3 mm [place] Tree, Red 1:20 P: W = 0 mm F = 3 mm [place], Red 1:20 P: W = 0 mm F = 3 mm [place], North Korean/Eastern 1:20 P: W = 0 mm F = 3 mm [place] Pollen, Black 1:20 P: W = 0 mm F = 3 mm [place], Black 1:20 P: W = 0 mm F = 3 mm B[place] Grass 10,000 BAU/ml P : W = 0 mm F = 3 mm [place], Blue/Clementine 100,000 BAU/ml P: W = 0 mm F = 3 mm [place]esc[place], [place] 100,000 BAU/ml P: W = 0 mm F = 3 mm [place] Grass 1:20 P: W = 0 mm F = 3 mm Orchard Grass 100,000 BAU/ml P: W = 0 mm F = 3 mm Perennial [place], 100,000 BAU/ml P: W = 0 mm F = 3 mm Jasmina 100,000 BAU/ml P: W = 0 mm F = 3 mm Cocklebur 1:20 P: W = 0 mm F = 3 mm Gill[place], sheep 1:20 P: W = 0 mm F = 3 mm Plantain, Hungarian 1:20 P: W = 0 mm F [...] = 8 mm F = 40 mm [place] ALLERGEN SKIN TEST-OTHER INH Myranda 12-23-2024 OTHER [...] = 0 mm F = 3 mm [place] CNOVon 12-23-2024 CNOV Office Visit (ALAPW) MARIANNE SAUCEDO ([id number]) 2000 F Date Time Provider Department 12/23/24 [...] but did not get any relief. Mane Hanna DO 12/23/2024 10:55 AM Signed Allergy and Immunology [...] was not helpful Previous evaluation by an drag down? [] Yes [x] No Antihistamine use in [...] NEGATIVE MEDICAL HISTORY normal color vision Pancreatitis ([facility]) with gallbladder issues depression Strep throat recurrent, [...] HFA, VENTOL (more content not included)... Normal [facility] INTRACU/DERM TESTS-IMMEDIA R Xon 12-23-2024 INHALANT 40 [...] = 0 mm F= 0 mm Special [place] Mix 1:500 ID: W = 0 mm F= 0 mm [place] No Panel Informationon 12-23 [place] CNCOon 12-17-2024 CNCO Letter Text Normal [facility] 12 Lead EKGon 12-15-2024 12 Lead EKG [facility] Cardiovascular Services [address] [place] [address] 12 Lead EKG 12/15/24 0639 MR#: [id number] Acct: [id number] Name: MARIANNE SAUCEDO UNRULY Rep #: [id number] : 2000 From: Bronson Ryan MD Attending [...] Normal ECG Confirmed by BRONSON RYAN ([id number]), book or script editor KANDY PEREZ ([id number]) on 12/20/2024 8:07:49 AM Referred By: Confirmed By: BRONSON RYAN 12/20/24 08 Date Bronson Ryan MD CC: ONEIL Barraza; Dr. Denzel Olmstead DO Signed Normal [facility] Emergency Department Summary on 12-15-2024 Emergency Department Summary [facility] Medical Records Department [address] [place] [address] Emergency Department Summary 12/15/24 MR#: [id number] Acct: [id number] Name: MARIANNE SAUCEDO UNRULY Rep #: [id number] : 2000 From: Denzel Olmstead DO PCP: ONEIL Hoyos Status:PRE ER Location: ED HPI History of Present Illness Chief Complaint: Cold Sx PFSH PFSH Medical History Physical exam, pre-employment depression Home Medications ???Medication ???Instructions ???Recorded ???Last Taken ???Type albuterol sulfate 90 mcg/actuation 1 - 2 puff inhalation Q4H PRN AL N 11/25/23 Unknown Rx aerosol inhaler (Ventolin [...] History obtained from others: none Consults: none [facility] Narrative: The patient was initially hemodynamically stable, afebrile and nontoxic-appearing. Exam without focal lung findings. No for consolidative process. No increased work of breathing, no green material value added assessor muscle use, no belly breathing. No obvious [...] no STEMI (more content not included)... Normal [facility] Chest PA and Lateralon 12-06 Chest PA and Lateral [facility] Imaging Services [address] [place], [place] [address] Chest PA and Lateral MR#: [id number] Acct: [id number] Name: MARIANNE SAUCEDO UNRULY Rep #: [id number] : 2000 F 24 From: Srinath Rosas MD PCP: ONEIL Hoyos Status: PRE ER Study: Chest PA and Lateral Date of Exam: 12/06/24 Exam# [id number] Ordering Dr: Rojelio Bullock MD PROCEDURE: CHEST [...] No evidence of acute disease. Reading Location: [facility] CC: PHYSICAL THERAPY DIRECTOR-Ralf Barraza; Dr. Rojelio Bullock MD Steamfitter: Signed Normal [facility] Emergency Department Summary on 12-06-2024 Emergency Department Summary [facility] Medical Records Department [address] [place] [address] Emergency Department Summary 12/06/24 MR#: [id number] Acct: [id number] Name: MARIANNE SAUCEDO Rep #: [id number] : 2000 From: Rojelio Bullock MD PCP: ONEIL Hoyos Status:REG ER Location: ED ADDENDUM by Dr. Rojelio Bullock MD on 12/06/24 at 0739 COVID/flu/RSV is negative. 12/06/24 0739 Cosigner Signature (if applicable): cc: PHYSICAL THERAPY DIRECTOR-C Marcelo Barraza * Signed HPI History of Present [...] she was wheezing and had chest tightness. [facility] Medical History Physical exam, pre-employment depression Home Medications ???Medication ???Instructions ???Recorded ???Last Taken ???Type albuterol sulfate 90 mcg/actuation 1 - 2 puff inhalation Q4H PRN AL N 11/25/23 Unknown Rx aerosol inhaler (Ventolin [...] disease. Readin (more content not included)... Normal [facility] Influenza virus A and B and SARS-CoV-2 (COVID-19) and Respiratory syncytial virus RNAOrdered By: Rojelio Bullock on 12-06-2024 SARS-CoV-2 (COVID-19) RNA ROMAN+probe Ql (Unsp spec) [facility] M100.678on 12-06-2024 M100.678 SARS-CoV-2 (COVID 19) Negative INFLUENZA A Negative INFLUENZA B Negative RSV PCR Negative Normal [facility] Comment on above: Performed By: #### M 100.678 ####[facility] [id number] [place], [address] CNOVon 12-05-2024 CNOV Office Visit (UCWSTR) MARIANNE SAUCEDO ([id number]) 2000 F Date Time Provider Department 12/05/24 2:00 PM ANN VEGA [facility] During your visit today, we recorded the following information about you: Temperature Pulse Respiration Blood pressure 97.6 degrees 80/minute 18/minute 111/80 Weight 100 kg Ann Vega APRN.ROTATING EQUIPMENT SPECIALIST 12/05/2024 2:46 PM Signed [facility] Subjective Marianne Saucedo is a [...] Discussed expected course of illness Ann Vega APRN.ROTATING EQUIPMENT SPECIALIST Recording using Imagine K12 software for draft documentation of the visit was discussed with the patient/authorized contact center representative; all questions welcomed and answered. Patient/authorized contact center representative agreed to proceed Disposition The patient was discharged. O (more content not included)... Normal [facility] STREP A MOLECULAR (POC)on Procedural Control Valid [facility] Strep A (POCT) Negative Negative [facility] CNOVon 11-25-2024 CNOV Office Visit (FAMPWS) MARIANNE SAUCEDO ([id number]) 2000 F Date Time Provider Department 11/25/24 9:00 AM FRANCESCA GILL During your visit today, we recorded the [...] 5. Encou (more content not included)... Normal [facility] CNOVon 11-17-2024 CNOV Office Visit (UCWSTR) DANIELMARIANNE ([id number]) 2000 F Date Time Provider Department 11/17/24 1:45 PM JOB PEREIRA [facility] During your visit today, we recorded the following information about you: Temperature Pulse Respiration Blood pressure 97.6 degrees 90/minute 16/minute 118/72 Weight 100.6 kg Job Pereira APRN.ROTATING EQUIPMENT SPECIALIST 11/17/2024 2:02 PM Signed [facility] [...] history is provided by the patient. No staff interpreter was used. Sore Throat Associated symptoms include [...] MG-POTASSIUM CLAVULANATE 125 MG TABLET Job Pereira APRN.ROTATING EQUIPMENT SPECIALIST History and Record Review External record(s) reviewed: [...] Diagnosis:Rhinosinus itis [J32.9] Order(s):STREP A MOLECULAR (POC) [1899366] Order #: [id number] #:[id number] amoxicillin-clavulan ate potassium (AUGMENTIN) 875-125 mg per [...] as needed (more content not included)... Normal [facility] STREP A MOLECULAR (POC)on Procedural Control Valid [facility] Strep A (POCT) Negative Negative [facility] CBC W Auto Differential pane l (Bld)on 10-08-2024 Basophils (Bld) [#/Vol] 0.12 10*3/uL High <0.11 [facility] Comment on above: Order Comment: Speci men Type: BLOOD SPECIMENOrdering Facility: [facility] Address: [address] [place] [address] Performed By: #### 5 7021-8 ####[facility] [id number] [place] [address] [place] Basophils/100 WBC (Bld) 1.1 % Normal [facility] Comment on above: Order Comment: Speci men Type: BLOOD SPECIMENOrdering Facility: [facility] Address: [address] [place] [address] Performed By: #### 5 7021-8 ####[facility] [id number] [place] [address] [place] Differential cell count method Nom (Bld) Auto Normal [facility] Comment on above: Order Comment: Speci men Type: BLOOD SPECIMENOrdering Facility: [facility] Address: [address] [place] [address] Performed By: #### 5 7021-8 ####[facility] [id number] [place] [address] [place] Eosinophils (Bld) [#/Vol] 0.31 10*3/uL Normal <0.46 [facility] Comment on above: Order Comment: Speci men Type: BLOOD SPECIMENOrdering Facility: [facility] Address: [address] [place] [address] Performed By: #### 5 7021-8 ####[facility] [id number] [address] [place] Eosinophils/100 WBC (Bld) 2.7 % Normal [facility] Comment on above: Order Comment: Speci men Type: BLOOD SPECIMENOrdering Facility: [facility] Address: [address] [place] [address] Performed By: #### 5 7021-8 ####[facility] [id number] [place] [address] [place] Erythrocyte distribution width (RBC) [Ratio] 12.2 % Normal 11.5-15.0 [facility] Comment on above: Order Comment: Speci men Type: BLOOD SPECIMENOrdering Facility: [facility] Address: [address] [place] [address] Performed By: #### 5 7021-8 ####[facility] [id number] [place] [address] [place] Hematocrit (Bld) [Volume fraction] 42.5 % Normal 36.0-46.0 [facility] Comment on above: Order Comment: Speci men Type: BLOOD SPECIMENOrdering Facility: [facility] Address: [address] [place] [address] Performed By: #### 5 7021-8 ####[facility]IA [id number] [place] [address] [place] Hemoglobin (Bld) [Mass/Vol] 13.8 g/dL Normal 11.5-15.5 [facility] Comment on above: Order Comment: Speci men Type: BLOOD SPECIMENOrdering Facility: [facility] Address: [address] [place] [address] Performed By: #### 5 7021-8 ####[facility] [id number] [place] [address] [place] Immature granulocytes (Bld) [#/Vol] 0.05 10*3/uL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 07-29-2018 FOREARM [place] [address] Patient: MARIANNE SAUCEDO Phone#: : 2000 Age: 18 Gender: F Pt. Type: ER Account: [id number] Location: 052 Ordering: DR. JASMINA ALSTON Exam Date: 07/29/2018/20:45 Family Phys: FRANCESCA GILL Charge Code: 396400 Physician: Tarrant Order #: [id number] DLP Dose#: PROCEDURE: X-RAY FOREARM LT 2 [...] Jack MD on 07/30/2018 at 8:39 Normal [facility] Acetamnphn Lvlon 07-08-2018 Acetaminoph Lvl <10 Normal 10-30 [facility] Comment on above: Performed By: #### 2 [id number] #### FAUZIA GonzalezHemo [address] [place] [address] Auto Diffon 07-08-2018 Basophils (Bld) [#/Vol] 0.1 E3/mcL Normal 0.0-0.2 [facility] Comment on above: Order Comment: Order Added by Discern Expert. Performed By: #### 2 [id number] #### FAUZIA GonzalezHemo [address] [place] [address] Basophils/100 WBC (Bld) 1.1 % Normal 0.0-2.0 [facility] Comment on above: Order Comment: Order Added by Discern Expert. Performed By: #### 2 [id number] #### FAUZIA GonzalezHemo [address] [place] [address] Eos Absolute 0.6 E3/mcL Normal 0.0-0.7 [facility] Comment on above: Order Comment: Order Added by Discern Expert. Performed By: #### 2 620684 #### FAUZIA GonzalezHemo [address] [place] [address] Eosinophils/100 WBC (Bld) 6.0 % Normal 0.0-11.0 [facility] Comment on above: Order Comment: Order Added by Discern Expert. Performed By: #### 2 744194 #### FAUZIA RemHemo [address] [place] [address] Lymphocytes (Bld) [#/Vol] 2.1 E3/mcL Normal 1.2-3.4 [facility] Comment on above: Order Comment: Order Added by Discern Expert. Performed By: #### 2 569742 #### FAUZIA GonzalezHemo [address] [place] [address] Lymphocytes/100 WBC (Bld) 20.6 % Normal 20.0-55.0 [facility] Comment on above: Order Comment: Order Added by Discern Expert. Performed By: #### 2 059242 #### FAUZIA RemHemo [address] [place] [address] [place] Absolute 0.6 E3/mcL Normal 0.0-0.7 [facility] Comment on above: Order Comment: Order Added by Discern Expert. Performed By: #### 2 591976 #### FAUZIA RemHemo [address] [place] [address] Monocytes/100 WBC (Bld) 6.2 % Normal 0.0-10.0 [facility] Comment on above: Order Comment: Order Added by Discern Expert. Performed By: #### 2 555905 #### FAUZIA RemHemo [address] [place] [address] Neutro Absolute 6.8 E3/mcL High 1.4-6.5 [facility] Comment on above: Order Comment: Order Added by Discern Expert. Performed By: #### 2 605316 #### FAUZIA Rem[facility] [address] [place] [address] Neutro Auto 66.1 % Normal 37.0-75.0 [facility] Comment on above: Order Comment: Order Added by Discern Expert. Performed By: #### 2 [id number] #### FAU[facility]IA Rem[facility] [address] [place] [address] BMPon 07-08-2018 Anion gap [Moles/Vol] 13 mmol/L Normal 10-[address] [facility] Comment on above: Performed By: #### 2 [id number] #### [facility] [employer] [address] [place] [address] Calcium [Mass/Vol] 9.9 mg/dL Normal 8.5-10.7 [facility] Comment on above: Performed By: #### 2 [id number] #### FAU[facility]IA [employer] [address] [place] [address] 75128 Chloride [Moles/Vol] 107 mmol/L Normal 98-107 [facility] Comment on above: Performed By: #### 2 [id number] #### [facility] [employer] [address] [place] [address] 25786 CO2 [Moles/Vol] 22.0 mmol/L Normal 21.0-32.0 [facility] Comment on above: Performed By: #### 2 [id number] #### [facility] [employer] [address] [place] [address] 81290 Creatinine [Mass/Vol] 0.6 mg/dL Normal 0.5-1.[address] [facility] Comment on above: Performed By: #### 2 [id number] #### [facility] [employer] [address] [place] [address] 64522 Glucose [Mass/Vol] 91 mg/dL Normal 70-99 [facility] Comment on above: Performed By: #### 2 [id number] #### [facility] [employer] [address] [place] [address] 64491 Potassium [Moles/Vol] 3.9 mmol/L Normal 3.5-5.[address] [facility] Comment on above: Performed By: #### 2 [id number] #### [facility] [employer] [address] [place] [address] 42594 Sodium [Moles/Vol] 138 mmol/L Normal 136-145 [facility] Comment on above: Performed By: #### 2 [id number] #### [facility] [employer] [address] [place] [address] 38534 Urea nitrogen [Mass/Vol] 16 mg/dL Normal 6-23 [facility] Comment on above: Performed By: #### 2 [id number] #### [facility] [employer] [address] [place] [address] 43711 Urea nitrogen/Creatinine [Mass ratio] 26.7 ratio Normal 5.4-30.0 [facility] Comment on above: Performed By: #### 2 [id number] #### [facility] [employer] [address] [place] [address] 45646 CBC w/ Auto Diffon 8 Erythrocyte distribution width (RBC) [Ratio] 13.9 % Normal 11.5-14.5 [facility] Comment on above: Performed By: #### 2 [id number] #### [facility] [address] [place] [address] 10120 Hematocrit (Bld) [Volume fraction] 41.2 % Normal 36.0-48.0 [facility] Comment on above: Performed By: #### 2 [id number] #### FAU[facility]IA [facility] [address] [place] [address] 72004 Hemoglobin (Bld) [Mass/Vol] 13.6 g/dL Normal 12.0-16.0 [facility] Comment on above: Performed By: #### 2 [id number] #### FAUZIA GonzalezHemo [address] [place] [address] MCH (RBC) [Entitic mass] 28.4 pg Normal 27.0-31.0 [facility] Comment on above: Performed By: #### 2 686009 #### FAUZIA [facility] [place] [address] MCHC (RBC) [Mass/Vol] 33.1 g/dL Normal 33.0-37.[address] [facility] Comment on above: Performed By: #### 2 [id number] #### FAUZIA LisaHemo [facility] [place] [address] MCV (RBC) [Entitic vol] 85.7 fL Normal 78.0-100.0 [facility] Comment on above: Performed By: #### 2 [id number] #### FAUZIA LisaHemo [address] [place] [address] 04427 Platelet mean volume (Bld) [Entitic vol] 8.5 fL Normal 7.4-11.0 [facility] Comment on above: Performed By: #### 2 [id number] #### FAUZIA GonzalezHemo [address] [place] [address] 55739 Platelets (Bld) [#/Vol] 373 E3/mcL Normal 130-400 [facility] Comment on above: Performed By: #### 2 [id number] #### FAUZIA Lisa[facility]emo [facility] [place] [address] RBC (Bld) [#/Vol] 4.81 E6/mcL Normal 3.90-5.40 [facility] Comment on above: Performed By: #### 2 [id number] #### FAUZIA LisaHemo [address] [place] [address] WBC (Bld) [#/Vol] 10.2 E3/mcL Normal 3.6-11.0 [facility] Comment on above: Performed By: #### 2 [id number] #### FAUZIA LisaHemo [address] [place] [address] Ethanolon 07-08-2018 Ethanol [Mass/Vol] mg/dL Normal <=10 [facility] Comment on above: Performed By: #### 2 [id number] #### FAUZIA Urinalysis Manual Subsection [address] [place], [place] [id number] Hep Func Panelon 07-08-2018 Albumin [Mass/Vol] 4.5 g/dL Normal 3.4-5.0 [facility] Comment on above: Performed By: #### 2 [id number] #### [facility] [employer] [address] [place] [address] Albumin/Globulin [Mass ratio] 1.3 {ratio} Normal 1.1-1.9 [facility] Comment on above: Performed By: #### 2 712788 #### [facility] [employer] [address] [place] [address] Alk Phos 128 Int._Unit/L High 33-110 [facility] Comment on above: Performed By: #### 2 [id number] #### FA[facility] [employer] [address] [place], [place] [id number] ALT [Catalytic activity/Vol] 26 Int._Unit/L Normal 7-45 [facility] Comment on above: Performed By: #### 2 [id number] #### FA[facility] [employer] [address] [place], [place] [id number] AST [Catalytic activity/Vol] 21 Int._Unit/L Normal 9-39 [facility] Comment on above: Performed By: #### 2 [id number] #### FA[facility] [employer] [address] [place] [address] 68113 Bili Direct 0.11 mg/dL Normal 0.00-0.30 [facility] Comment on above: Performed By: #### 2 196810 #### [facility] [employer] [address] [place] [address] 25933 Bili Indirect 0.38 mg/dL Normal [facility] Comment on above: Result Comment: No e stablished ranges available for the indirect bilirubin Performed By: #### 2 [id number] #### FA[facility] [employer] [address] [place] [address] Bili Total 0.49 mg/dL Normal 0.00-1.20 [facility] Comment on above: Performed By: #### 2 [id number] #### [facility] [employer] [address] [place] [address] Globulin (S) [Mass/Vol] 3.0 g/dL Normal 2.0-4.0 [facility] Comment on above: Performed By: #### 2 [id number] #### [facility] [employer] [address] [place] [address] Protein [Mass/Vol] 7.9 g/dL Normal 6.4-8.2 [facility] Comment on above: Performed By: #### 2 [id number] #### FA[facility] [employer] [address] [place] [address] Salicylateon 07-08-2018 Salicylate Lvl <1.5 Low 4.0-20.0 [facility] Comment on above: Performed By: #### 2 [id number] #### FAUZIA Urinalysis Manual Subsection [address] [place] [address] U BhCG Qlton 07-08-2018 HCG.beta subunit Qn Negative Normal Neg [facility] Comment on above: Performed By: #### 2 [id number] #### FAUZIA Urinalysis Manual Subsection [address] [place] [address] U Drug Screenon 07-08-2018 U Amph Scr Negative Normal [facility] Comment on above: Performed By: #### 2 [id number] #### FAUZIA Rem[facility] [address] [place] [address] U Bernadine Scr Negative Normal [facility] Comment on above: Performed By: #### 2 [id number] #### FAUZIA Rem[facility] [address] [place] [address] U Benzodia Scr Negative Normal [facility] Comment on above: Performed By: #### 2 537521 #### FAUZIA [facility] [address] [place] [address] U Cannab Scr Negative Normal [facility] Comment on above: Performed By: #### 2 937453 #### FAUZIA Rem[facility] [address] [place] [address] U Cocaine Scr Negative Normal [facility] Comment on above: Performed By: #### 2 [id number] #### FAUZIA Rem[facility] [address] [place] [address] U Opiate Scr Negative Normal [facility] Comment on above: Performed By: #### 2 822159 #### FAUZIA Rem[facility] [address] [place] [address] U PCP Scr Negative Normal [facility] Comment on above: Performed By: #### 2 101249 #### FAUZIA Rem[facility] [address] [place] [address] UA Completeon 07-08-2018 Color (U) Straw Normal Yellow [facility] Comment on above: Performed By: #### 8 [id number] #### FAUZIA Urinalysis Automated Subsection [address] [place] [address] Glucose (U) [Mass/Vol] Negative Normal Negative [facility] Comment on above: Performed By: #### 8 [id number] #### FAUZIA Urinalysis Automated Subsection [address] [place] [address] Ketones Ql (U) Negative Normal Negative [facility] Comment on above: Performed By: #### 8 [id number] #### FAUZIA Urinalysis Automated Subsection [address] [place] [address] RBC (U) [#/Vol] 0-3 Normal 0-3 [facility] Comment on above: Performed By: #### 8 [id number] #### FAUZIA Urinalysis Automated Subsection [address] [place] [address] UA Blood Negative Normal Negative [facility] Comment on above: Performed By: #### 8 [id number] #### FAUZIA Urinalysis Automated Subsection [address] [place] [address] UA Clarity Clear Normal Clear [facility] Comment on above: Performed By: #### 8 [id number] #### FUAZIA Urinalysis Automated Subsection [address] [place] [address] UA Leuk Est Negative Normal Negative [facility] Comment on above: Performed By: #### 8 [id number] #### FAUZIA Urinalysis Automated Subsection [address] [place] [address] UA Nitrite Negative Normal Negative [facility] Comment on above: Performed By: #### 8 [id number] #### FAUZIA Urinalysis Automated Subsection [address] [place] [address] UA pH 6.0 Normal 4.6-8.0 [facility] Comment on above: Performed By: #### 8 [id number] #### FAUZIA Urinalysis Automated Subsection [address] [place] [address] UA Protein Negative Normal Negative [facility] Comment on above: Performed By: #### 8 [id number] #### FAUZIA Urinalysis Automated Subsection [address] [place] [address] UA Spec Grav 1.006 Normal 1.003-1.030 [facility] Comment on above: Performed By: #### 8 [id number] #### FAUZIA Urinalysis Automated Subsection [address] [place] [address] UA Urobilinogen Negative Normal [facility] Comment on above: Result Comment: Due to a manufacturing issue, low positive urobilinogen results may be fasely positive. Correlate with urine bilirubin and additional clinical/laboratory findings to assess the risk of hemolytic anemia or liver disease. If clinically indicated, repeat testing with an alternate method is available by contacting the laboratory within 24 hours. Performed By: #### 8 [id number] #### FAUZIA Urinalysis Automated Subsection [address] [place] [address] UA WBC 0-5 Normal 0-5 [facility] Comment on above: Performed By: #### 8 [id number] #### FAUZIA Urinalysis Automated Subsection [address] [place] [address] Urobilinogen Qn (U) Negative Normal Negative [facility] Comment on above: Performed By: #### 8 [id number] #### FAUZIA Urinalysis Automated Subsection [address] [place] [address] XR Chest 2 Viewson 8 XR Chest 2 Views Exam Date/Time: 07/08/2018 16:17 EST Reason for Exam: Medical Clearance;Other (please specify) Report STUDY: XR Chest 2 Views; 07/08/2018 4:17 pm INDICATION: Other (please specify). Medical clearance. COMPARISON: None. ACCESSION NUMBER(S): [id number] ORDERING CLINICIAN: Arlette Miranda FINDINGS: CARDIOMEDIASTINAL SILHOUETTE: [...] Signed by: Hugh Nix MD Technologist: , [facility] eGFRon 07-08-2018 GFR/1.73 sq M predicted among non-blacks MDRD (S/P/Bld) [Vol rate/Area] mL/min/{1.73_m2} [facility] Comment on above: Order Comment: Order added by Discern Expert. Performed By: #### 1 [id number] #### [facility] [employer] [address] [place] [address] Vital Signs Date Time Vital Sign Value Performing Clinician Luz bolanos 02-18-2025 13:58-0400 Body mass index (BMI) [Ratio] 39.82 kg/m2 Yeny Serena SHIP FITTER.ROTATING EQUIPMENT SPECIALIST Work Phone: [place] 02-18-2025 13:58-0400 Body weight 101.97 kg Yeny Serena SHIP FITTER.ROTATING EQUIPMENT SPECIALIST Work Phone: [place] 02-18-2025 13:58-0400 Diastolic blood pressure 80 mm[Hg] Yeny Serena SHIP FITTER.ROTATING EQUIPMENT SPECIALIST Work Phone: [place] 02-18-2025 13:58-0400 Heart rate 84 /min Yeny Serena SHIP FITTER.ROTATING EQUIPMENT SPECIALIST Work Phone: [place] 02-18-2025 13:58-0400 Respiratory rate 14 /min Yeny Serena SHIP FITTER.ROTATING EQUIPMENT SPECIALIST Work Phone: [place] 02-18-2025 13:58-0400 Systolic blood pressure 117 mm[Hg] Yeny Serena SHIP FITTER.ROTATING EQUIPMENT SPECIALIST Work Phone: [place] 02-07-2025 02:10-0400 Body temperature 98 [degF] Marcelo Madi PHYSICAL THERAPY DIRECTOR-C Work Phone: [facility] 02-07-2025 02:10-0400 Diastolic blood pressure 70 mm[Hg] Marcelo Madi PHYSICAL THERAPY DIRECTOR-C Work Phone: [facility] 02-07-2025 02:10-0400 Heart rate 73 /min Marcelo Madi PHYSICAL THERAPY DIRECTOR-C Work Phone: [facility] 02-07-2025 02:10-0400 Respiratory rate 18 /min Marcelo Madi PHYSICAL THERAPY DIRECTOR-C Work Phone: [facility] 02-07-2025 02:10-0400 SaO2% (BldA) [Mass fraction] 100 % Marcelo Madi PHYSICAL THERAPY DIRECTOR-C Work Phone: [facility] 02-07-2025 02:10-0400 Systolic blood pressure 111 mm[Hg] Marcelo Madi PHYSICAL THERAPY DIRECTOR-C Work Phone: [phone] [place] [address] 02-07-2025 00:42-0400 Body height 160.02 cm Marcelo Madi PHYSICAL THERAPY DIRECTOR-C Work Phone: [phone] [place] [address] 02-07-2025 00:42-0400 Body mass index (BMI) [Ratio] 40.3 kg/m2 Marcelo Madi PHYSICAL THERAPY DIRECTOR-C Work Phone: [facility] 02-07-2025 00:42-0400 Body weight 103.3 kg Marcelo Madi PHYSICAL THERAPY DIRECTOR-C Work Phone: [facility] 01-31-2025 10:52-0400 Body mass index (BMI) [Ratio] 39.05 kg/m2 Sam Osborne APRN.ROTATING EQUIPMENT SPECIALIST Work Phone: [place] 01-31-2025 10:52-0400 Body weight 100 kg Sam Osborne APRN.ROTATING EQUIPMENT SPECIALIST Work Phone: [facility] 01-31-2025 10:52-0400 Diastolic blood pressure 74 mm[Hg] Sam Osborne APRN.ROTATING EQUIPMENT SPECIALIST Work Phone: [facility] 01-31-2025 10:52-0400 Heart rate 75 /min Sam Osborne APRN.ROTATING EQUIPMENT SPECIALIST Work Phone: [place] 01-31-2025 10:52-0400 Systolic blood pressure 96 mm[Hg] Sam Osborne APRN.ROTATING EQUIPMENT SPECIALIST Work Phone: [facility] 01-27-2025 13:35-0400 Body mass index (BMI) [Ratio] 39.83 kg/m2 Nikita [place] MD Work Phone: [facility] 01-27-2025 13:35-0400 Body temperature 98.29 [degF] Nikita [place] MD Work Phone: [facility] 01-27-2025 13:35-0400 Body weight 102 kg Nikita [place] MD Work Phone: [facility] 01-27-2025 13:35-0400 Diastolic blood pressure 75 mm[Hg] Nikita [place] MD Work Phone: [place] 01-27-2025 13:35-0400 Heart rate 76 /min Nikita [place] MD Work Phone: [place] 01-27-2025 13:35-0400 Respiratory rate 18 /min Nikita [place] MD Work Phone: [facility] 01-27-2025 13:35-0400 SaO2% (BldA) [Mass fraction] 98 % Nikita [place] MD Work Phone: [facility] 01-27-2025 13:35-0400 Systolic blood pressure 110 mm[Hg] Nikita [place] MD Work Phone: [facility] 12-23-2024 08:02-0400 Body mass index (BMI) [Ratio] 38.97 kg/m2 Amudha Cyndi DO Work Phone: [facility] 12-23-2024 08:02-0400 Body weight 99.79 kg Amudha Pazhanisamy DO Work Phone: [facility] 12-23-2024 08:02-0400 Diastolic blood pressure 74 mm[Hg] Amudha Pazhanisamy DO Work Phone: [facility] 12-23-2024 08:02-0400 Heart rate 79 /min Amudha Pazhanisamy DO Work Phone: [facility] 12-23-2024 08:02-0400 Respiratory rate 16 /min Amudha Pazhanisamy DO Work Phone: [facility] 12-23-2024 08:02-0400 SaO2% (BldA) [Mass fraction] 98 % Amudha Pazhanisamy DO Work Phone: [place] 12-23-2024 08:02-0400 Systolic blood pressure 107 mm[Hg] Amudha Pazhanisamy DO Work Phone: [place] 12-15-2024 06:48-0400 Body temperature 97.7 [degF] Marcelo Madi PHYSICAL THERAPY DIRECTOR-C Work Phone: [facility] 12-15-2024 06:48-0400 Diastolic blood pressure 74 mm[Hg] Marcelo Madi PHYSICAL THERAPY DIRECTOR-C Work Phone: [facility] 12-15-2024 06:48-0400 Heart rate 73 /min Marcelo Madi PHYSICAL THERAPY DIRECTOR-C Work Phone: [facility] 12-15-2024 06:48-0400 Respiratory rate 18 /min Marcelo Madi PHYSICAL THERAPY DIRECTOR-C Work Phone: [facility] 12-15-2024 06:48-0400 SaO2% (BldA) [Mass fraction] 99 % Marcelo Madi PHYSICAL THERAPY DIRECTOR-C Work Phone: [facility] 12-15-2024 06:48-0400 Systolic blood pressure 123 mm[Hg] Marcelo Madi PHYSICAL THERAPY DIRECTOR-C Work Phone: [facility] 12-15-2024 06:23-0400 Body height 160.02 cm Marcelo Madi PHYSICAL THERAPY DIRECTOR-C Work Phone: [facility] 12-15-2024 06:23-0400 Body mass index (BMI) [Ratio] 40.2 kg/m2 Marcelo Madi PHYSICAL THERAPY DIRECTOR-C Work Phone: [facility] 12-15-2024 06:23-0400 Body weight 103.1 kg Marcelo Madi PHYSICAL THERAPY DIRECTOR-C Work Phone: [facility] 12-06-2024 07:40-0400 Body temperature 98.1 [degF] Marcelo Madi PHYSICAL THERAPY DIRECTOR-C Work Phone: [facility] 12-06-2024 07:40-0400 Diastolic blood pressure 62 mm[Hg] Marcelo Madi PHYSICAL THERAPY DIRECTOR-C Work Phone: [facility] 12-06-2024 07:40-0400 Heart rate 77 /min Marcelo Madi PHYSICAL THERAPY DIRECTOR-C Work Phone: [phone] [place] [address] 12-06-2024 07:40-0400 Respiratory rate 19 /min Marcelo Madi PHYSICAL THERAPY DIRECTOR-C Work Phone: [facility] 12-06-2024 07:40-0400 SaO2% (BldA) [Mass fraction] 97 % Marcelo Madi PHYSICAL THERAPY DIRECTOR-C Work Phone: [facility] 12-06-2024 07:40-0400 Systolic blood pressure 102 mm[Hg] Marcelo Madi PHYSICAL THERAPY DIRECTOR-C Work Phone: [facility] 12-06-2024 05:47-0400 Body height 160.02 cm Marcelo Madi PHYSICAL THERAPY DIRECTOR-C Work Phone: [facility] 12-05-2024 14:00-0400 Body mass index (BMI) [Ratio] 39.05 kg/m2 Ann Vega APRN.ROTATING EQUIPMENT SPECIALIST Work Phone: [place] 12-05-2024 14:00-0400 Body temperature 97.59 [degF] Ann Vega APRN.CNP Work Phone: [facility] 12-05-2024 14:00-0400 Body weight 100 kg Ann Praisler-Wood SHIP FITTER.ROTATING EQUIPMENT SPECIALIST Work Phone: [facility] 12-05-2024 14:00-0400 Diastolic blood pressure 80 mm[Hg] Ann Praisler-Wood SHIP FITTER.ROTATING EQUIPMENT SPECIALIST Work Phone: [facility] 12-05-2024 14:00-0400 Heart rate 80 /min Ann Praisler-Wood SHIP FITTER.ROTATING EQUIPMENT SPECIALIST Work Phone: [facility] 12-05-2024 14:00-0400 Respiratory rate 18 /min Ann Praisler-Wood SHIP FITTER.ROTATING EQUIPMENT SPECIALIST Work Phone: [facility] 12-05-2024 14:00-0400 SaO2% (BldA) [Mass fraction] 98 % Ann Praisler-Wood SHIP FITTER.ROTATING EQUIPMENT SPECIALIST Work Phone: [facility] 12-05-2024 14:00-0400 Systolic blood pressure 111 mm[Hg] Ann Praisler-Wood SHIP FITTER.ROTATING EQUIPMENT SPECIALIST Work Phone: [facility] 11-25-2024 08:50-0400 Body mass index (BMI) [Ratio] 39.33 kg/m2 Francesca Gill MD Work Phone: [facility] 11-25-2024 08:50-0400 Body weight 100.7 kg Francesca Gill MD Work Phone: [facility] 11-25-2024 08:50-0400 Diastolic blood pressure 64 mm[Hg] Francesca Gill MD Work Phone: [facility] 11-25-2024 08:50-0400 Heart rate 76 /min Francesca Gill MD Work Phone: [facility] 11-25-2024 08:50-0400 Respiratory rate 16 /min Francesca Gill MD Work Phone: [facility] 11-25-2024 08:50-0400 Systolic blood pressure 100 mm[Hg] Francesca Gill MD Work Phone: [facility] 11-17-2024 13:38-0400 Body mass index (BMI) [Ratio] 39.29 kg/m2 Job Pereira APRN.ROTATING EQUIPMENT SPECIALIST Work Phone: [facility] 11-17-2024 13:38-0400 Body temperature 97.59 [degF] Job Pereira APRN.ROTATING EQUIPMENT SPECIALIST Work Phone: [facility] 11-17-2024 13:38-0400 Body weight 100.6 kg Job Pereira APRN.ROTATING EQUIPMENT SPECIALIST Work Phone: [facility] 11-17-2024 13:38-0400 Diastolic blood pressure 72 mm[Hg] Job Pereira APRN.ROTATING EQUIPMENT SPECIALIST Work Phone: [facility] 11-17-2024 13:38-0400 Heart rate 90 /min Job Pereira APRN.ROTATING EQUIPMENT SPECIALIST Work Phone: [facility] 11-17-2024 13:38-0400 Respiratory rate 16 /min Job Pereira APRN.ROTATING EQUIPMENT SPECIALIST Work Phone: [place] 11-17-2024 13:38-0400 SaO2% (BldA) [Mass fraction] 99 % Job Pereira APRN.ROTATING EQUIPMENT SPECIALIST Work Phone: [facility] 11-17-2024 13:38-0400 Systolic blood pressure 118 mm[Hg] Job Pereira APRN.ROTATING EQUIPMENT SPECIALIST Work Phone: [facility] 10-08-2024 08:17-0400 Body mass index (BMI) [Ratio] 38.27 kg/m2 Sam Osborne APRN.ROTATING EQUIPMENT SPECIALIST Work Phone: [facility] 10-08-2024 08:17-0400 Body weight 98 kg Sam Osborne APRN.ROTATING EQUIPMENT SPECIALIST Work Phone: [facility] 10-08-2024 08:17-0400 Diastolic blood pressure 69 mm[Hg] Sam Osborne APRN.ROTATING EQUIPMENT SPECIALIST Work Phone: [facility] 10-08-2024 08:17-0400 Heart rate 80 /min Sam Osborne APRN.ROTATING EQUIPMENT SPECIALIST Work Phone: [facility] 10-08-2024 08:17-0400 Systolic blood pressure 104 mm[Hg] Sam Osborne SHIP FITTER.ROTATING EQUIPMENT SPECIALIST Work Phone: [facility] 05-14-2024 08:09-0400 Body mass index (BMI) [Ratio] 38.62 kg/m2 Debo Nisreen SHIP FITTER.ROTATING EQUIPMENT SPECIALIST Work Phone: [facility] 05-14-2024 08:09-0400 Body weight 98.88 kg Debo Nisreen SHIP FITTER.ROTATING EQUIPMENT SPECIALIST Work Phone: [facility] 05-14-2024 08:09-0400 Diastolic blood pressure 60 mm[Hg] Debo Haury SHIP FITTER.ROTATING EQUIPMENT SPECIALIST Work Phone: [facility] 05-14-2024 08:09-0400 Systolic blood pressure 110 mm[Hg] Debo Nisreen SHIP FITTER.ROTATING EQUIPMENT SPECIALIST Work Phone: [facility] 02-18-2024 06:49-0400 Body mass index (BMI) [Ratio] 40.39 kg/m2 Angy Avila SHIP FITTER.ROTATING EQUIPMENT SPECIALIST Work Phone: [facility] 02-18-2024 06:49-0400 Body weight 103.42 kg Angy Avila SHIP FITTER.ROTATING EQUIPMENT SPECIALIST Work Phone: [facility] 02-18-2024 06:49-0400 Diastolic blood pressure 72 mm[Hg] Angy Avila SHIP FITTER.ROTATING EQUIPMENT SPECIALIST Work Phone: [facility] 02-18-2024 06:49-0400 Heart rate 79 /min Angy Rodriguezf SHIP FITTER.ROTATING EQUIPMENT SPECIALIST Work Phone: [facility] 02-18-2024 06:49-0400 Respiratory rate 16 /min Angy Avila SHIP FITTER.ROTATING EQUIPMENT SPECIALIST Work Phone: [facility] 02-18-2024 06:49-0400 SaO2% (BldA) [Mass fraction] 97 % Angy Avila SHIP FITTER.ROTATING EQUIPMENT SPECIALIST Work Phone: [facility] 02-18-2024 06:49-0400 Systolic blood pressure 104 mm[Hg] Angy Aivla APRN.CNP Work Phone: [facility] 11-26-2023 13:39-0400 Body mass index (BMI) [Ratio] 40.07 kg/m2 Annika Athy PA-C Work Phone: [facility] 11-26-2023 13:39-0400 Body temperature 98.71 [degF] Annika Athy PA-C Work Phone: [facility] 11-26-2023 13:39-0400 Body weight 102.6 kg Annika Athy PA-C Work Phone: [facility] 11-26-2023 13:39-0400 Diastolic blood pressure 72 mm[Hg] Annika Athy PA-C Work Phone: [facility] 11-26-2023 13:39-0400 Heart rate 84 /min Annika Athy PA-C Work Phone: [facility] 11-26-2023 13:39-0400 Respiratory rate 18 /min Annika Athy PA-C Work Phone: [facility] 11-26-2023 13:39-0400 SaO2% (BldA) [Mass fraction] 98 % Annika Athy PA-C Work Phone: [facility] 11-26-2023 13:39-0400 Systolic blood pressure 122 mm[Hg] Annika Athy PA-C Work Phone: [facility] 11-25-2023 02:41-0400 Body temperature 98.4 [degF] [facility] 11-25-2023 02:41-0400 Diastolic blood pressure 71 mm[Hg] [facility] 11-25-2023 02:41-0400 Heart rate 77 /min [facility] 11-25-2023 02:41-0400 Respiratory rate 16 /min [facility] 11-25-2023 02:41-0400 SaO2% (BldA) [Mass fraction] 97 % [facility] 11-25-2023 02:41-0400 Systolic blood pressure 115 mm[Hg] [facility] 11-25-2023 00:28-0400 Body height 160.02 cm [facility] 11-25-2023 00:28-0400 Body mass index (BMI) [Ratio] 38.9 kg/m2 [facility] 11-25-2023 00:28-0400 Body weight 99.79 kg [facility] 07-04-2023 13:03-0500 Body temperature 98.49 [degF] Katia Brower SHIP FITTER.ROTATING EQUIPMENT SPECIALIST Work Phone: [facility] 07-04-2023 13:03-0500 Body weight 102.97 kg Katia Brower SHIP FITTER.ROTATING EQUIPMENT SPECIALIST Work Phone: [facility] 07-04-2023 13:03-0500 Diastolic blood pressure 89 mm[Hg] Katia Brower SHIP FITTER.ROTATING EQUIPMENT SPECIALIST Work Phone: [place] 07-04-2023 13:03-0500 Heart rate 74 /min Katia Brower SHIP FITTER.ROTATING EQUIPMENT SPECIALIST Work Phone: [place] 07-04-2023 13:03-0500 Respiratory rate 18 /min Katia Brower SHIP FITTER.ROTATING EQUIPMENT SPECIALIST Work Phone: [place] 07-04-2023 13:03-0500 SaO2% (BldA) [Mass fraction] 97 % Katia Brower SHIP FITTER.ROTATING EQUIPMENT SPECIALIST Work Phone: [place] 07-04-2023 13:03-0500 Systolic blood pressure 132 mm[Hg] Katia Brower SHIP FITTER.ROTATING EQUIPMENT SPECIALIST Work Phone: [place] 06-25-2023 13:47-0500 Body weight 102.33 kg Laura Plotts SHIP FITTER.CNM Work Phone: [place] 06-25-2023 13:47-0500 Diastolic blood pressure 70 mm[Hg] Laura Plotts SHIP FITTER.CNM Work Phone: [place] 06-25-2023 13:47-0500 Systolic blood pressure 110 mm[Hg] Laura Plotts SHIP FITTER.CNM Work Phone: [place] 06-05-2023 11:16-0500 Body weight 101.61 kg Laura Plotts SHIP FITTER.CNM Work Phone: [place] 06-05-2023 11:16-0500 Diastolic blood pressure 70 mm[Hg] Laura Plotts SHIP FITTER.CNM Work Phone: [place] 06-05-2023 11:16-0500 Systolic blood pressure 110 mm[Hg] Laura Plotts SHIP FITTER.CNM Work Phone: [place] 10-31-2022 13:47-0400 Body height 160 cm Fiordaliza Pereira MD Work Phone: [place] 10-31-2022 13:47-0400 Body weight 96.75 kg Fiordaliza Pereira MD Work Phone: [place] 10-31-2022 13:47-0400 Diastolic blood pressure 62 mm[Hg] Fiordaliza Pereira MD Work Phone: [place] 10-31-2022 13:47-0400 Systolic blood pressure 94 mm[Hg] Fiordaliza Pereira MD Work Phone: [place] 10-10-2022 14:30-0400 Body weight 97.52 kg Sam Osborne SHIP FITTER.ROTATING EQUIPMENT SPECIALIST Work Phone: [place] 10-10-2022 14:30-0400 Diastolic blood pressure 66 mm[Hg] Sam Gaviota SHIP FITTER.ROTATING EQUIPMENT SPECIALIST Work Phone: [place] 10-10-2022 14:30-0400 Heart rate 90 /min Sam Gaviota SHIP FITTER.ROTATING EQUIPMENT SPECIALIST Work Phone: [place] 10-10-2022 14:30-0400 Respiratory rate 14 /min Sam Gaviota SHIP FITTER.ROTATING EQUIPMENT SPECIALIST Work Phone: [place] 10-10-2022 14:30-0400 Systolic blood pressure 114 mm[Hg] Sam Gaviota SHIP FITTER.ROTATING EQUIPMENT SPECIALIST Work Phone: [place] 10-17-2021 15:28-0400 Body temperature 99.39 [degF] Ann Mariebatsheva Bailey SHIP FITTER.ROTATING EQUIPMENT SPECIALIST Work Phone: [place] 10-17-2021 15:28-0400 Body weight 95.25 kg Ann Mariechris Sylvesteremilee SHIP FITTER.ROTATING EQUIPMENT SPECIALIST Work Phone: [place] 10-17-2021 15:28-0400 Diastolic blood pressure 62 mm[Hg] Ann Mariebatsheva Bailey SHIP FITTER.ROTATING EQUIPMENT SPECIALIST Work Phone: [place] 10-17-2021 15:28-0400 Heart rate 101 /min Ann Marie Bailey SHIP FITTER.ROTATING EQUIPMENT SPECIALIST Work Phone: [place] 10-17-2021 [id number] SaO2% (BldA) [Mass fraction] 93 % Ann Marie Bailey SHIP FITTER.ROTATING EQUIPMENT SPECIALIST Work Phone: [place] 10-17-2021 15:28-0400 Systolic blood pressure 110 mm[Hg] Ann Marie Ngaemilee SHIP FITTER.ROTATING EQUIPMENT SPECIALIST Work Phone: [place] Encounters Encounter Date Encounter Type Care Provider Facility Start: 03-11-2025 End: 03-11-2025 Admission to same day surgery center Yenyzonia Greeneir JENNIFER.ROTATING EQUIPMENT SPECIALIST Work Phone: General Surgery Comment on above: Gastroesophageal ref lux disease without esophagitis (Primary Dx); Reactive gastropathy Start: 03-11-2025 End: 03-11-2025 Telemedicine consultation with patient Yeny Lyons JENNIFER.ROTATING EQUIPMENT SPECIALIST Work Phone: General Surgery Start: 03-11-2025 End: 03-11-2025 ambulatory SELF Facility:[facility] Start: 03-10-2025 End: 03-11-2025 Admission to same day surgery center Yeny Lyons APRN.ROTATING EQUIPMENT SPECIALIST Work Phone: General Surgery Comment on above: Test results Start: 03-10-2025 End: 03-11-2025 ambulatory [facility] SHIP FITTER.ROTATING EQUIPMENT SPECIALIST Work Phone: General Surgery Start: 03-03-2025 End: 03-03-2025 ambulatory YENY LYONS Facility:[facility] Start: 02-18-2025 End: 02-18-2025 Patient encounter procedure Yeny Lyons SHIP FITTER.ROTATING EQUIPMENT SPECIALIST Work Phone: General Surgery Comment on above: Heart burn (Primary Dx); Diarrhea, unspecified type; Nausea Start: 02-18-2025 End: 02-18-2025 ambulatory YENY LYONS Facility:[facility] Start: 02-17-2025 End: 02-17-2025 ambulatory Sam Osborne SHIP FITTER.ROTATING EQUIPMENT SPECIALIST Work Phone: [facility] [place] Start: 02-17-2025 End: 02-17-2025 Patient encounter procedure Sam Osborne SHIP FITTER.ROTATING EQUIPMENT SPECIALIST Work Phone: [facility] [place] Comment on above: Appointment Start: 02-10-2025 End: 02-10-2025 ambulatory Irena Espinoza MS Work Phone: [facility] Comment on above: Genetic test results Start: 02-10-2025 End: 02-10-2025 E-mail encounter from caregiver Irena Espinoza MS Work Phone: [facility] Start: 02-09-2025 End: 02-09-2025 ambulatory FRANCESCA BASSETTMADISON Facility:[facility] Start: 02-09-2025 End: 02-09-2025 Subsequent hospital visit by physician [facility] Work Phone: Radiology Comment on above: Diarrhea, unspecifie d type [R19.7] Start: 02-07-2025 End: 02-07-2025 Emergency department patient visit Marcelo RIGGS Work Phone: -Emergency Department Work Phone: Start: 02-04-2025 End: 02-04-2025 Patient encounter procedure Irena Espinoza MS Work Phone: Gen[facility] Comment on above: Family history of br east cancer (Primary Dx); Family history of adrenal cancer; Family history of pancreatic cancer Start: 02-04-2025 End: 02-04-2025 ambulatory JESENIA KRAMER Facility:[facility] Start: 02-01-2025 End: 02-03-2025 Orders Only Sam Osborne APRN.ROTATING EQUIPMENT SPECIALIST Work Phone: [facility] [place] Comment on above: Diarrhea, unspecifie d type (Primary Dx) Testing Start: 01-31-2025 End: 02-01-2025 Follow-up encounter Sam Osborne APRN.CNP Work Phone: [facility] [place] Start: 01-31-2025 End: 01-31-2025 Subsequent hospital visit by physician [facility] Work Phone: Radiology Comment on above: Diarrhea, unspecifie d type [R19.7] Start: 01-31-2025 End: 01-31-2025 Patient encounter procedure Sam Osborne APRN.ROTATING EQUIPMENT SPECIALIST Work Phone: [facility] [place] Comment on above: Diarrhea, unspecifie d type (Primary Dx) Start: 01-31-2025 End: 01-31-2025 ambulatory [facility] Facility:[facility] Start: 01-27-2025 End: 01-27-2025 Office outpatient visit 15 minutes Nikita Daniels MD Work Phone: [facility] [place] Comment on above: Sore throat (Primary Dx) Start: 01-27-2025 End: 01-27-2025 ambulatory [facility] Facility:[facility] Start: 12-23-2024 End: 12-23-2024 Office consultation new/estab patient 40 min Amudha Pazhanisamy DO Work Phone: Allergy Comment on above: Rhinoconjunctivitis (Primary Dx); Allergic rhinitis due to mold; Seasonal allergic rhinitis due to pollen; Adverse food reaction, sequela; Poor dentition Start: 12-23-2024 End: 12-24-2024 ambulatory Amudha Pazhanisamy DO Work Phone: Allergy Comment on above: Allergy shot Start: 12-16-2024 End: 12-17-2024 ambulatory Marcelo Barraza APRN.ROTATING EQUIPMENT SPECIALIST Work Phone: [facility] [place] Comment on above: Er Start: 12-15-2024 End: 12-15-2024 Emergency department patient visit Marcelo Barraza PHYSICAL THERAPY DIRECTOR-C Work Phone: -Emergency Department Work Phone: Start: 12-06-2024 End: 12-06-2024 Emergency department patient visit Marcelo Barraza PHYSICAL THERAPY DIRECTOR-C Work Phone: -Emergency Department Work Phone: Start: 12-05-2024 End: 12-05-2024 Patient encounter procedure Ann Vega APRN.ROTATING EQUIPMENT SPECIALIST Work Phone: [facility] Comment on above: Sore throat (Primary Dx); Viral URI with cough Start: 12-05-2024 End: 12-05-2024 ambulatory FRANCESCA Gisele [facility] Facility:[facility] Start: 11-25-2024 End: 11-25-2024 Office outpatient visit 15 minutes Francesca Gill MD Work Phone: [facility] [place] Comment on above: Environmental allerg ies (Primary Dx); Itchy eyes; Nasal congestion; Watery eyes; Encounter for screening examination for other mental health and behavioral disorders; Screening for depression Start: 11-25-2024 End: 11-25-2024 ambulatory FRANCESCA Gisele [facility] Facility:[facility] Start: 11-17-2024 End: 11-17-2024 Patient encounter procedure Job Pereira APRN.ROTATING EQUIPMENT SPECIALIST Work Phone: [facility] Comment on above: Sore throat (Primary Dx); Rhinosinusitis Start: 11-17-2024 End: 11-17-2024 ambulatory FRANCESCA Gisele [facility] Facility:[facility] Start: 10-08-2024 End: 10-08-2024 Telephone encounter Francesca Gill MD Work Phone: [facility] [place] Comment on above: Insurance Authorizat ion Start: 10-08-2024 End: 10-08-2024 Patient encounter procedure Sam Osborne APRN.ROTATING EQUIPMENT SPECIALIST Work Phone: Family [facility] [place] Comment on above: Iron deficiency anem ia, unspecified iron deficiency anemia type (Primary Dx); Intractable chronic migraine without aura and without status migrainosus Start: 10-08-2024 End: 10-08-2024 ambulatory SAM OSBORNE Facility:[facility] Start: 05-14-2024 End: 05-14-2024 ambulatory FRANCESCA GILL Facility:[facility] Start: 05-14-2024 End: 05-14-2024 Patient encounter procedure Debo Nielson SHIP FITTER.ROTATING EQUIPMENT SPECIALIST Work Phone: OB/Gynecology Comment on above: Vaginal discharge (P rimary Dx); Vaginal itching; Vaginal odor; Screening for cervical cancer Start: 02-23-2024 End: 02-23-2024 Emergency department patient visit Marcelo Barraza NP Facility:[facility] Start: 02-21-2024 ambulatory Francesca sidhu MD Work Phone: [facility] Comment on above: Rectal Problem Start: 02-20-2024 ambulatory Ann Marie Stone SHIP FITTER.ROTATING EQUIPMENT SPECIALIST Work Phone: [facility] Comment on above: Blood in stool Start: 02-18-2024 End: 02-18-2024 Patient encounter procedure Angy Avila APRN.ROTATING EQUIPMENT SPECIALIST Work Phone: [facility] Comment on above: Rectal bleeding (Eladia peri Dx); Chronic constipation; Contact dermatitis, unspecified contact dermatitis type, unspecified trigger Start: 02-17-2024 ambulatory Marcelo KONG RN.ROTATING EQUIPMENT SPECIALIST Work Phone: [facility] Comment on above: Blood in stool Start: 02-17-2024 Telephone encounter Angy gibson SHIP FITTER.ROTATING EQUIPMENT SPECIALIST Work Phone: [facility] Comment on above: Rectal Problem Start: 11-26-2023 End: 11-26-2023 Patient encounter procedure Annika Velazquez PA-C Work Phone: [facility] Comment on above: Bronchitis (Primary Dx) Start: 11-25-2023 End: 11-25-2023 Emergency department patient visit [facility]-Emergency Department Work Phone: Start: 07-05-2023 Telephone encounter Nikita Faith MD Work Phone: [facility] Comment on above: Results (HSV+) Start: 07-04-2023 End: 07-04-2023 Patient encounter procedure Katia Brower SHIP FITTER.ROTATING EQUIPMENT SPECIALIST Work Phone: [facility] Comment on above: Blister of lip (Prim selam Dx) Start: 06-25-2023 End: 06-25-2023 Patient encounter procedure Laura Álvaro SHIP FITTER.CNM Work Phone: OB/Gynecology Comment on above: Encounter for IUD in sertion (Primary Dx) Start: 06-05-2023 End: 06-05-2023 Patient encounter procedure Laura Álvaro SHIP FITTER.CNM Work Phone: OB/Gynecology Comment on above: Encounter for lorainesantiago rui regarding contraception (Primary Dx); Encounter for IUD insertion Start: 02-05-2023 ambulatory Francesca sidhu MD Work Phone: Family [facility] [place] Comment on above: Pain Start: 11-01-2022 ambulatory [...] OB/Gynecology Start: 10-15-2022 Telephone encounter Sam rosas APRN.ROTATING EQUIPMENT SPECIALIST Work Phone: Family [facility] [place] Comment on above: Results Start: 10-10-2022 End: 10-10-2022 Subsequent hospital visit by physician [facility] [place] Work Phone: Radiology Comment on above: Right wrist pain [M2 5.531] Start: 10-10-2022 End: 10-10-2022 Patient encounter procedure Sam Osborne APRN.ROTATING EQUIPMENT SPECIALIST Work Phone: [facility] [place] Comment on above: Right wrist pain (Pr imary Dx) Start: 10-10-2022 ambulatory Francesca sidhu MD Work Phone: [facility] [place] Comment on above: Wrist Start: 10-01-2022 ambulatory Francesca sidhu MD Work Phone: [facility] [place] Comment on above: Lips Refill Request Start: 09-10-2022 End: 09-10-2022 ambulatory Francesca Gill MD Work Phone: [facility] [place] Comment on above: Recurrent cold sores (Primary Dx) Start: 09-10-2022 End: 09-10-2022 Telemedicine consultation with patient Francesca Gill MD Work Phone: [facility] Start: 09-09-2022 ambulatory Francesca sidhu MD Work Phone: [facility] [place] Comment on above: Lips Start: 02-07-2022 ambulatory Francesca sidhu MD Work Phone: [facility] [place] Comment on above: Stomach Start: 10-17-2021 End: 10-17-2021 Patient encounter procedure Ann Mariechris Bailey APRN.ROTATING EQUIPMENT SPECIALIST Work Phone: [facility] [place] Comment on above: Cough (Primary Dx); Viral syndrome; Sore throat; Nose congestion Start: 03-09-2020 Patient requested procedure Al yson Lynn RODRIGUEZ.ROTATING EQUIPMENT SPECIALIST Work Phone: [place] Work Phone: Start: 07-29-2018 End: 07-29-2018 Emergency department patient visit JASMINA DEJESUS [facility] Procedures Date Procedure Procedure Detail Performing Clinician Start: 02-09-2025 Us abdominal real time w/image limited Sam Osborne APRN.ROTATING EQUIPMENT SPECIALIST Work Phone: Start: 02-07-2025 X-ray of chest, PA and lateral views Marcelo RIGGS Work Phone: Start: 02-07-2025 Estimated creatinine clearance Marcelo RIGGS Work Phone: Start: 01-31-2025 Radiologic exam abdomen 1 view Sam Osborne SHIP FITTER.ROTATING EQUIPMENT SPECIALIST Work Phone: Start: 01-27-2025 Iadna streptococcus group a amplified probe tq Nikita Daniels MD Work Phone: Start: 12-23-2024 ALLERGEN SKIN TEST-FOOD Amudha Pazhanisa my DO Work Phone: Start: 12-23-2024 ALLERGEN SKIN TEST-INHALENT 40 Amudha Pazhanisamy DO Work Phone: Start: 12-23-2024 ALLERGEN SKIN TEST-OTHER INHAL Amudha Pazhanisamy DO Work Phone: Start: 12-23-2024 Intracutaneous tests w/allergenic extracts Amudha Pazhanisamy DO Work Phone: Start: 12-06-2024 SARS-CoV-2, Influenza & RSV (PCR) Marcelo Barraza PHYSICAL THERAPY DIRECTOR-C Work Phone: Start: 12-06-2024 X-ray of chest, PA and lateral views Marcelo Barraza PHYSICAL THERAPY DIRECTOR-C Work Phone: Start: 12-05-2024 STREP A MOLECULAR (POC) Ann rob SHIP FITTER.ROTATING EQUIPMENT SPECIALIST Work Phone: Start: 11-25-2024 Adult depression screening assessment Francesca Gill MD Work Phone: Start: 11-17-2024 STREP A MOLECULAR (POC) Katia KONG RN.ROTATING EQUIPMENT SPECIALIST Work Phone: Start: 11-25-2023 SARS-CoV-2, Influenza & RSV (PCR) Start: 11-25-2023 Plain chest X-ray Start: 06-25-2023 Urine test visual color cmprsn rd Rea SHIP FITTER.CNM Work Phone: Start: 10-31-2022 Iadna chlamydia trachomatis amplified probe tq Fiordaliza Pereira MD Work Phone: Start: 10-10-2022 Radex wrist complete minimum 3 views Sam Osborne SHIP FITTER.ROTATING EQUIPMENT SPECIALIST Work Phone: Start: 10-17-2021 STREP A MOLECULAR (POC) Ann Marie Bailey APRN.CNP Work Phone: Start: 10-17-2021 Adult depression screening assessment Ann Marie Ngaemilee GAFFNEY Work Phone: Start: 02-27-2016 End: 06-07-2016 Laboratory test result abnormal Abnormal laboratory test Annika Velazquez PA-C Work Phone: Plan of Treatment Date Care Activity Detail Author Start: 08-21-2030 Urine microalbumin profile [place] Start: 05-14-2027 Screening for malign ant neoplasm of cervix Cervical Cancer Screening [place] Start: 11-25-2025 Anxiety Screening Anxiety Screening [place] Start: 11-25-2025 Covid-19 Vaccine ( season) Covid-19 Vaccine () [place] Comment on above: Postponed from 03/21 (Declined at this time) Start: 11-25-2025 Depression Screening Depression Scre ening [place] Start: 04-07-2025 End: 04-07-2025 Patient encounter procedure 04/07/2025 11:45 AM EDT Appointment [facility] [address] [place] [address] Gilma Villegas MD [address] [place] [id number] LD SUR[facility] Start: 03-21-2025 Influenza vaccination [facility] Start: 03-11-2025 End: 03-11-2025 Admission to same day surgery center 03/11/2025 2:30 PM EDT [facility] General Surgery [address] [place] [address] Yeny Lyons APRN.CNP [address] [place] [id number] review test results General Surgery Comment on above: review test results Start: 02-18-2025 End: 02-18-2025 Patient encounter procedure General Surgery Comment on above: Diarrhea, unspecifie d type [R19.7] CONSULT: Diarrhea, u nspecified type. Seen in ED 02/07/25 for chest pain r/t GERD. PCP referred. [facility] Start: 02-09-2025 End: 02-09-2025 Patient encounter procedure 02/09/2025 7:45 AM EDT Appointment Radiology [address] [place] [address] Diarrhea, unspecified type [R19.7] Radiology Comment on above: Diarrhea, unspecifie d type [R19.7] Start: 02-07-2025 End: 02-07-2025 [facility] Start: 02-04-2025 End: 05-06-2025 NVTA INVITAE HEREDITARY DIAGNOSTIC CANCER PANEL [facility] Work Phone: Comment on above: Expected: 02/04/2025 , Expires: 05/06/2025 Start: 02-04-2025 End: 02-04-2025 Patient encounter procedure 02/04/2025 11:30 AM EDT Office Visit Genomics [address] [place] [address] Irena Espinoza, [place] [address] [place] [address] [facility] Comment on above: Genetics Start: 12-23-2024 End: 03-24-2025 ALGN RESP DISEASE PROF REG 5 [facility] Work Phone: Comment on above: Expected: 12/23/2024 , Expires: 03/24/2025 Start: 12-23-2024 End: 12-23-2024 Patient encounter procedure [facility] [place] Comment on above: Dx: Environmental al lergies [Z91.09]; Itchy eyes [H57.9]; Nasal congestion [R09.81]; Watery eyes [H04.203] Start: 12-15-2024 [facility] Start: 12-06-2024 [facility] Start: 10-08-2024 End: 01-07-2025 CBC W Auto Differential panel - Blood [facility] Work Phone: Comment on above: Expected: 10/08/2024 , Expires: 01/07/2025 Start: 10-08-2024 End: 01-07-2025 Ferritin [Mass/volume] in Serum or Plasma [place] Comment on above: Expected: 10/08/2024 , Expires: 01/07/2025 Start: 10-08-2024 End: 01-07-2025 Iron and Iron binding capacity panel - Serum or Plasma [place] Comment on above: Expected: 10/08/2024 , Expires: 01/07/2025 Start: 03-21-2024 Covid-19 Vaccine () Covid-19 Vaccine () [place] Start: 03-21-2024 Influenza vaccination [facility] Start: 02-18-2024 End: 02-18-2024 Patient encounter procedure 02/18/2024 7:00 AM EDT Office Visit [facility] [place] [address] [place], [place] [id number] Angy Avila APRN.ROTATING EQUIPMENT SPECIALIST [address] [place] [address] Blood noted in stool today [facility] Comment on above: Blood noted in stool today Start: 01-06-2024 PAP TESTING PAP TESTING [place] Start: 01-06-2024 Screening for malign ant neoplasm of cervix [place] Start: 11-25-2023 [facility] Start: 11-01-2023 CHLAMYDIA SCREENING (24) CHLAMYDIA SCREENING (18-24) [place] Start: 11-01-2023 GC (GONORRHEA) SCREE KIMI (18-24) GC (GONORRHEA) SCREENING (18-24) [place] Start: 11-01-2023 Screening for Chlamy alvarado trachomatis Chlamydia Screening (18) [place] Start: 07-21-2023 Behavioral Health Screening Behavioral Health Screening [place] Start: 07-04-2023 End: 10-03-2023 Herpes simplex virus+Varicella zoster virus DNA [Presence] in Unspecified specimen by ROMAN with probe detection [facility] Work Phone: Comment on above: Expected: 07/04/2023 , Expires: 10/03/2023 Start: 03-21-2023 Covid-19 Vaccine () Covid-19 Vaccine ( season) [place] Start: 03-21-2023 Influenza vaccination [facility] Start: 10-17-2022 Adult depression screening assessment DEPRESSION SCREENING [place] Start: 07-21-2022 DEPRESSION ASSESSMENT DEPRESSION ASS ESSMENT [place] Start: 03-21-2022 Influenza vaccination INFLUENZA (#1) [place] Start: 08-23-2021 COVID-19 VACCINE (3 - Booster for Pfizer series) COVID-19 VACCINE (3 - Booster for Pfizer series) [place] Start: 05-18-2021 COVID-19 VACCINE (3 - Booster for Pfizer series) COVID-19 VACCINE (3 - Booster for Pfizer series) [place] Start: 05-12-2021 CHLAMYDIA SCREENING (18-24) CHLAMYDIA SCREENING (18-24) [place] Start: 05-12-2021 GC (GONORRHEA) SCREE KIMI (18-24) GC (GONORRHEA) SCREENING (18-24) [place] Start: 03-21-2021 Influenza vaccination INFLUENZA (#1) [place] Start: 2017 Anxiety Screening Anxiety Screening [place] Start: 2017 Depression Screening Depression Scre ening [place] Start: 2015 Meningococcal B Vacc ine: Consider Based On Risk (1 of 2 - Patient Seeks Protection) Meningococcal B Vaccine: Consider Based On Risk (1 of 2 - Patient Seeks Protection) [place] Start: 2015 MENINGOCOCCAL B: Consider based on risk (1 of 2 - Patient Seeks Protection) MENINGOCOCCAL B: Consider based on risk (1 of 2 - Patient Seeks Protection) [place] Start: 2013 PEDS TO ADULT TRANSI TION ANNUAL ASSESSMENT PEDS TO ADULT TRANSITION ANNUAL ASSESSMENT [place] Start: 2011 PEDS TO ADULT TRANSI TION INITIAL DISCUSSION PEDS TO ADULT TRANSITION INITIAL DISCUSSION [place] Start: 2009 MENINGOCOCCAL B: Consider based on risk (1 of 2 - Risk Bexsero 2-dose series) MENINGOCOCCAL B: Consider based on risk (1 of 2 - Risk Bexsero 2-dose series) [place] BACTERIAL VAGINOSIS NAAT BACTERI AL VAGINOSIS NAAT Lab Routine Vaginal discharge Vaginal itching 05/14/2024 8:23 AM EDT [facility] Work Phone: NAMITA/TRICHOMONAS NAAT NAMITA /TRICHOMONAS NAAT Lab Routine Vaginal discharge Vaginal itching 05/14/2024 8:23 AM EDT [place] Clostridioides diffi cile toxin genes [Presence] in Stool by ROMAN with probe detection CLOSTRIDIUM DIFFICILE TOXIN BY PCR Lab Routine Diarrhea, unspecified type 01/31/2025 2:06 PM EDT [place] End: 02-18-2026 EGD DIAGNOSTIC EGD DIAGNOSTIC Endoscopy Routine Heart burn Nausea 1 Occurrences starting 02/18/2025 until 02/18/2026 [place] Comment on above: 1 Occurrences starti ng 02/18/2025 until 02/18/2026 ENTERIC BACTERIAL PA EDY BY PCR ENTERIC BACTERIAL PANEL BY PCR Lab Routine Diarrhea, unspecified type 01/31/2025 2:05 PM EDT [facility] Work Phone: EXTRA ECOFIX CONTAIN ER PERFORMABLE EXTRA ECOFIX CONTAINER PERFORMABLE Lab Routine Diarrhea, unspecified type 01/31/2025 2:06 PM EDT [place] End: 02-18-2026 Flexible sigmoidoscopy study COLONOSCOPY DIAGNOSTIC Endoscopy Routine Diarrhea, unspecified type 1 Occurrences starting 02/18/2025 until 02/18/2026 [facility] Work Phone: Comment on above: 1 Occurrences starti ng 02/18/2025 until 02/18/2026 Influenza virus A an d B RNA and SARS-CoV-2 (COVID-19) N gene panel - Respiratory specimen by ROMAN with probe detection COVID WITH FLUA+B, ROUTINE Microbiology Routine Cough Sore throat Nose congestion Ordered: 10/17/2021 [facility] Work Phone: Comment on above: Ordered: 10/17/2021 Insertion intrauteri ne device iud INSERT INTRAUTERINE DEVICE Procedures Routine Encounter for IUD insertion Ordered: 06/05/2023 [facility] Work Phone: Comment on above: Ordered: 06/05/2023 Insertion intrauteri ne device iud INSERT INTRAUTERINE DEVICE Procedures Routine Encounter for IUD insertion Ordered: 06/25/2023 [facility] Work Phone: Comment on above: Ordered: 06/25/2023 LAB EXTRA TUBES LAB EXTRA TUBES Lab Routine Diarrhea, unspecified type 01/31/2025 2:06 PM EDT [place] PAP TEST PAP TEST Lab Rou myra Screening for cervical cancer 05/14/2024 8:23 AM EDT [place] Patient Education [facility] Work Phone: Patient referral [facility] Work Phone: T VAGINALIS AMPLIFICATION T VAGINALIS AMPLIFICATION Lab Routine Vaginal odor Vaginal itching 10/31/2022 2:10 PM EDT [facility] Work Phone: End: 03-03-2026 US Abdomen RUQ US ABD RIGHT UPPER QUADRANT Radiology STAT Diarrhea, unspecified type 1 Occurrences starting 02/01/2025 until 03/03/2026 [facility] Work Phone: Comment on above: 1 Occurrences starti ng 02/01/2025 until 03/03/2026 End: 11-09-2023 XR WRIST GENERAL 3V PA/LAT/OBL RIGHT XR WRIST GENERAL 3V PA/LAT/OBL RIGHT Radiology Routine Right wrist pain 1 Occurrences starting 10/10/2022 until 11/09/2023 [facility] Work Phone: Comment on above: 1 Occurrences starti ng 10/10/2022 until 11/09/2023 XR WRIST GENERAL 3V PA/LAT/OBL RIGHT XR WRIST GENERAL 3V PA/LAT/OBL RIGHT Radiology Routine Right wrist pain 10/10/2022 3:06 PM EDT [facility] Work Phone: [facility] Immunizations Immunization Date Immunization Notes Care Provider Elmer perez 08-21-2020 tetanus toxoid, redu gali diphtheria toxoid, and acellular pertussis vaccine, adsorbed Ann Marie Zurawick SHIP FITTER.ROTATING EQUIPMENT SPECIALIST Work Phone: [place] 05-12-2020 influenza, injectabl e, quadrivalent, contains preservative Ann Marie Zurawick SHIP FITTER.ROTATING EQUIPMENT SPECIALIST Work Phone: [place] Work Phone: 05-12-2020 influenza virus vaccine, unspecified formulation Laura Rea SHIP FITTER.[facility] Work Phone: [place] 05-10-2020 Influenza virus vaccine [facility] 05-22-2017 tetanus toxoid, redu gali diphtheria toxoid, and acellular pertussis vaccine, adsorbed Ann Marie Zurawick SHIP FITTER.[facility] Work Phone: [place] 04-10-2017 Influenza virus vaccine [facility] 04-10-2017 influenza, injectabl e, quadrivalent, contains preservative Ann Marie Zurawick SHIP FITTER.[facility] Work Phone: [place] 04-10-2017 influenza, seasonal, injectable, preservative free Ann Marie Zurawick SHIP FITTER.[facility] Work Phone: [place] Work Phone: 06-25-2016 tetanus toxoid, redu gali diphtheria toxoid, and acellular pertussis vaccine, adsorbed Ann Marie Zurawick SHIP FITTER.[facility] Work Phone: [place] Work Phone: 04-11-2016 influenza, injectabl e, quadrivalent, contains preservative Ann Marie Zurawick SHIP FITTER.[facility] Work Phone: [place] Work Phone: 02-21-2012 hepatitis A vaccine, unspecified formulation Ann Marie Zurawick SHIP FITTER.ROTATING EQUIPMENT SPECIALIST Work Phone: [place] Work Phone: 02-21-2012 human papilloma viru s vaccine, quadrivalent Ann Marie Zurawick SHIP FITTER.[facility] Work Phone: [place] Work Phone: 08-09-2010 human papilloma viru s vaccine, quadrivalent Ann Marie Zurawick SHIP FITTER.ROTATING EQUIPMENT SPECIALIST Work Phone: [place] 08-09-2010 Meningococcal, MCV4, unspecified conjugate formulation(groups A, C, Y and W-135) Ann Marie Zurawick SHIP FITTER.ROTATING EQUIPMENT SPECIALIST Work Phone: [place] 08-09-2010 tetanus toxoid, redu gali diphtheria toxoid, and acellular pertussis vaccine, adsorbed Ann Marie Zurawick SHIP FITTER.ROTATING EQUIPMENT SPECIALIST Work Phone: [place] 03-01-2010 hepatitis A vaccine, unspecified formulation Ann Marie Zurawick SHIP FITTER.ROTATING EQUIPMENT SPECIALIST Work Phone: [place] 03-01-2010 human papilloma viru s vaccine, quadrivalent Ann Marie Zurawick SHIP FITTER.ROTATING EQUIPMENT SPECIALIST Work Phone: [place] 03-01-2010 varicella virus vaccine Yenni on Zurawick SHIP FITTER.[facility] Work Phone: [place] 03-12-2005 diphtheria, tetanus toxoids and acellular pertussis vaccine Ann Marie Zurawick SHIP FITTER.[facility] Work Phone: [place] Work Phone: 03-12-2005 measles, mumps and rubella virus vaccine Ann Marie Zurawick SHIP FITTER.[facility] Work Phone: [place] Work Phone: 03-12-2005 poliovirus vaccine, inactivated Ann Marie Zurawick SHIP FITTER.[facility] Work Phone: [place] Work Phone: 09-22-2001 pneumococcal conjuga te vaccine, 7 valent Ann Marie Zurawick SHIP FITTER.ROTATING EQUIPMENT SPECIALIST Work Phone: [place] Work Phone: 05-11-2001 diphtheria, tetanus toxoids and acellular pertussis vaccine Ann Marie Zurawick SHIP FITTER.[facility] Work Phone: [place] Work Phone: 05-11-2001 haemophilus influenz ae type b vaccine, HbOC conjugate Ann Marie Zurawick SHIP FITTER.ROTATING EQUIPMENT SPECIALIST Work Phone: [place] Work Phone: 05-11-2001 hepatitis B vaccine, pediatric or pediatric/adolescent dosage Ann Marie Zurawick SHIP FITTER.ROTATING EQUIPMENT SPECIALIST Work Phone: [place] Work Phone: 2000 hepatitis B vaccine, pediatric or pediatric/adolescent dosage Ann Marie Zurawick SHIP FITTER.[facility] Work Phone: [place] Work Phone: 2000 measles, mumps and rubella virus vaccine Ann Marie Zurawick SHIP FITTER.[facility] Work Phone: [place] Work Phone: 2000 pneumococcal conjuga te vaccine, 7 valent Ann Marie Zurawick SHIP FITTER.[facility] Work Phone: [place] Work Phone: 2000 varicella virus vaccine Yenni on Zurawick SHIP FITTER.[facility] Work Phone: [place] Work Phone: 03-19-2000 diphtheria, tetanus toxoids and acellular pertussis vaccine Ann Marie Zurawick SHIP FITTER.[facility] Work Phone: [place] Work Phone: 03-19-2000 haemophilus influenz ae type b vaccine, HbOC conjugate Ann Marie Zurawick SHIP FITTER.[facility] Work Phone: [place] Work Phone: 03-19-2000 pneumococcal conjuga te vaccine, 7 valent Ann Marie Zurawick SHIP FITTER.[facility] Work Phone: [place] Work Phone: 03-19-2000 poliovirus vaccine, inactivated Ann Marie Zurawick SHIP FITTER.[facility] Work Phone: [place] Work Phone: 1999 diphtheria, tetanus toxoids and acellular pertussis vaccine Ann Marie Zurawick SHIP FITTER.[facility] Work Phone: [place] Work Phone: 1999 haemophilus influenz ae type b vaccine, HbOC conjugate Ann Marie Zurawick SHIP FITTER.[facility] Work Phone: [place] Work Phone: 1999 hepatitis B vaccine, pediatric or pediatric/adolescent dosage Ann Marie Zurkarenck SHIP FITTER.[facility] Work Phone: [place] Work Phone: 1999 poliovirus vaccine, inactivated Ann Marie Zurawick SHIP FITTER.[facility] Work Phone: [place] Work Phone: 1999 diphtheria, tetanus toxoids and acellular pertussis vaccine Ann Marie Ngaawick SHIP FITTER.ROTATING EQUIPMENT SPECIALIST Work Phone: [place] Work Phone: 1999 haemophilus influenz ae type b vaccine, HbOC conjugate Ann Marie Jojock SHIP FITTER.[facility] Work Phone: [place] Work Phone: 1999 poliovirus vaccine, inactivated Ann Marie Zurkarenck SHIP FITTER.[facility] Work Phone: [place] Work Phone: Payers Date Payer Category Payer Self-pay [id number] 2022 Medicaid [id number] 2022 Unknown [id number] 2019 Medicaid [place] [employer] [employer] [id number] 2019-Present [phone] [id number] Medicaid [id number] 2014 Unknown [id number] 1999 Unknown [id number] Unknown [id number] Unknown [id number] Unknown [id number] Unknown [id number] Social History Date Type Detail Facility Start: 02-08-2016 End: 10-31-2022 Tobacco smoking status NHIS Never smoked tobacco [place] Work Phone: Start: 02-08-2016 End: 10-31-2022 Tobacco use and exposure Smokeless tobacco non-user [place] Work Phone: Start: 10-17-2021 End: 02-16-2025 Alcohol intake Current non-drinker of alcohol (finding) [place] Start: 09-09-2019 End: 09-10-2022 History SDOH Social Connections Phone 5 [place] Start: 09-09-2019 History SDOH Social Connections Get Together 4 [place] Start: 09-09-2019 End: 09-10-2022 History SDOH Social Connections Pentecostal 1 [place] Start: 09-09-2019 End: 09-10-2022 History SDOH Social Connections Membership 2 [place] Start: 09-09-2019 History SDOH Physica l Activity MPS 6 [place] Start: 03-09-2020 Education 11 [place] Start: 2000 Sex Assigned At Not on file [facility] Start: 10-07-2021 End: 10-17-2021 Exposure to SARS-CoV-2 (event) Not sure [place] Start: 09-10-2022 History SDOH Social Connections Living 7 [place] Start: 09-10-2022 History SDOH Physica l Activity DPW 3 [place] Start: 10-31-2022 Tobacco Comment parents smoke [facility] Start: 09-10-2022 End: 03-11-2025 History of Social function [facility] Start: 09-10-2022 End: 03-11-2025 Social connection and isolation panel [place] Do you belong to any clubs or organizations such as religious groups, unions, fraternal or athletic groups, or school groups? No [place] Are you now , , , , never or living with a partner? Never [place] How often to you hav e a drink containing alcohol? Monthly or less [place] How many standard dr inks containing alcohol do you have on a typical day? 1 or 2 [place] How often do you hav e 6 or more drinks on 1 occasion? Never [place] Start: 06-21-2012 How hard is it for y ou to pay for the very basics like food, housing, medical care, and heating Not hard at all [place] Do you feel stress - tense, restless, nervous, or anxious, or unable to sleep at night because your mind is troubled all the time - these days [OSQ] Only a little [place] (I/We) worried melissa fletcher (my/our) food would run out before (I/we) got money to buy more. Never true [place] Start: 11-25-2023 Tobacco smoking stat us [facility] Unknown if ever smoked [facility] Start: 08-13-2017 None [facility] Start: 2000 Sex Assigned At Female W [facility] Start: 12-15-2024 End: 02-07-2025 Tobacco smoking status CTIS Ex-smoker (finding) [facility] Functional Status Date Assessment Result Facility 05-17-2016 Are you deaf, or do you have serious difficulty hearing No 05/17/2016 12:05 PM Zoë Simmons, IVAN No [place] 05-17-2016 Are you blind, or do you have serious difficulty seeing, even when wearing glasses No 05/17/2016 12:05 PM Zoë Simmons, IVAN No [place] 05-17-2016 Do you have serious difficulty walking or climbing stairs No 05/17/2016 12:05 PM Zoë Simmons, IVAN No [place] 05-17-2016 Do you have difficul ty dressing or bathing No 05/17/2016 12:05 PM Zoë Simmons, IVAN No [place] 05-17-2016 Because of a physica l, mental, or emotional condition, do you have difficulty doing errands alone such as visiting a physician's office or shopping No 05/17/2016 12:05 PM EDT Zoë Bragg RN No [place] Mental Status Date Assessment Result Facility 02-07-2025 Cognitive function Voice/Name [facility] Work Phone: 12-15-2024 Cognitive function Level Of Cons ciousness Awake;Alert;Appropriate;Fol lows Commands [facility] Work Phone: 12-06-2024 Cognitive function Level Of Cons ciousness Awake;Alert;Appropriate;Fol lows Commands [facility] Work Phone: 11-25-2023 Cognitive function Level Of Cons ciousness Awake;Alert;Appropriate [facility] Work Phone: 05-17-2016 Because of a physica l, mental, or emotional condition, do you have serious difficulty concentrating, remembering, or making decisions No 05/17/2016 12:05 PM EDT Zoë Bragg RN No [place] Clinical Notes 10-24-2020 to 03-11-2025 Yeny Lyons, JENNIFER.ROTATING EQUIPMENT SPECIALIST - 03/11/2025 2:30 PM EDTTelephone Encounter - Alma Santiago MA - 03/11/2025 8:14 AM EDTTelephone Encounter - Alma Santiago MA - 03/11/2025 8:14 AM EDTPatient Instructions Note Date & Type Note Facility 03-11-2025 History of Presen t illness Narrative GENERAL SURGERY-ENDOSCOPY FOLLOW UP VIRTUAL VISIT I have communicated my name and active licensure. The patient's identity and physical location were verified at the time of this visit. Either the patient or their legal contact center representative has been informed of the risks and benefits of -- and alternatives to -- treatment through a remote evaluation and consents to proceed with the evaluation remotely. Marianne Saucedo 2000 [id number] Marianne Saucedo is a patient I am following for heartburn & diarrhea. Dr. Villegas performed upper & lower endoscopy on 03/03/25. The patient was found to have EGD Impression: - Normal duodenal bulb, first portion of the duodenum and second portion of the duodenum. - Erythematous mucosa in the antrum. Biopsied. - Z-line irregular, 39 cm from the incisors. Biopsied. COLONOSCOPY Impression: - Non-bleeding internal hemorrhoids. - Biopsies were taken with a cold forceps from the entire colon for evaluation of microscopic colitis. PATHOLOGY: FINAL DIAGNOSIS A. Stomach, antrum, biopsy: - Antral-type gastric mucosa with mild chronic gastritis and features suggestive of active gastropathy. B. Esophagogastric junction, biopsy: - Squamocolumnar mucosa with intestinal metaplasia and focal active inflammation. - Negative for dysplasia and malignancy. C. Esophagus, random biopsies: - Squamous mucosa with no significant histopathologic changes. D. Colon, random biopsies: - Colonic mucosa with no significant histopathologic changes. The patient notes continued heart burn since the procedure -never started the protonix -having trouble eating d/t heart burn -water helps relieved symptoms VITALS: There were no vitals taken for this visit. General: patient is alert, cooperative, pleasant and in no acute distress Assessment ASSESSMENT/PLAN: 1. Gastroesophageal reflux disease without esophagitis - ICD9: 530.81, ICD10: K21.9 - Discussed lifestyle modifications including losing weight, limiting caffeine, no meals three hours before sleep, and head of bed elevation - Begin treatment with Protonix 40mg daily 2. Reactive gastropathy - ICD9: 537.89, ICD10: K31.89 - Same as #1 - Avoid NSAIDs & limit caffeine The operative findings and pathology report were reviewed with the patient, and the patient has had the opportunity to ask questions and have questions answered. If the patient notes any problems or changes in bowel function, the patient should contact me immediately. Otherwise I recommend follow up endoscopy in 3 years. updated and recall letter generated. Discussed treatment plan and patient voices understanding. Patient's questions answered appropriately. Medications and potential side effects were discussed and patient voices understanding. Return to the office as scheduled or as needed for worsening/no improvement. Yeny Lyons, JENNIFER.ROTATING EQUIPMENT SPECIALIST Risk of morbidity, mortality and/or complications of treatment plan: low I spent a total of 10 minutes on the date of the service which included preparing to see the patient, [id number] patient care, completing clinical documentation, and communicating results to the patient/family/caregiver. documented in this encounter [place] 03-11-2025 Note HNO ID: [id number] Author: YENY LYONS APRN.[place] Service: ? Author Type: Nurse Practitioner Type: Progress Notes Filed: 03/11/2025 14:36 Note Text: GENERAL SURGERY-ENDOSCOPY FOLLOW UP VIRTUAL VISIT I have communicated my name and active licensure. The patient's identity and physical location were verified at the time of this visit. Either the patient or their legal contact center representative has been informed of the risks and benefits of -- and alternatives to -- treatment through a remote evaluation and consents to proceed with the evaluation remotely. Marianne Saucedo 2000 [id number] Marianne Saucedo is a patient I am following for heartburn AND diarrhea. Dr. Villegas performed upper AND lower endoscopy on 03/03/25. The patient was found to have EGD Impression: - Normal duodenal bulb, first portion of the duodenum and second portion of the duodenum. - Erythematous mucosa in the antrum. Biopsied. - Z-line irregular, 39 cm from the incisors. Biopsied. COLONOSCOPY Impression: - Non-bleeding internal hemorrhoids. - Biopsies were taken with a cold forceps from the entire colon for evaluation of microscopic colitis. PATHOLOGY: FINAL DIAGNOSIS A. Stomach, antrum, biopsy: - Antral-type gastric mucosa with mild chronic gastritis and features suggestive of active gastropathy. B. Esophagogastric junction, biopsy: - Squamocolumnar mucosa with intestinal metaplasia and focal active inflammation. - Negative for dysplasia and malignancy. C. Esophagus, random biopsies: - Squamous mucosa with no significant histopathologic changes. D. Colon, random biopsies: - Colonic mucosa with no significant histopathologic changes. The patient notes continued heart burn since the procedure -never started the protonix -having trouble eating d/t heart burn -water helps relieved symptoms VITALS: There were no vitals taken for this visit. General: patient is alert, cooperative, pleasant and in no acute distress Assessment ASSESSMENT/PLAN: 1. Gastroesophageal reflux disease without esophagitis - ICD9: 530.81, ICD10: K21.9 - Discussed lifestyle modifications including losing weight, limiting caffeine, no meals three hours before sleep, and head of bed elevation - Begin treatment with Protonix 40mg daily 2. Reactive gastropathy - ICD9: 537.89, ICD10: K31.89 - Same as #1 - Avoid NSAIDs AND limit caffeine The operative findings and pathology report were reviewed with the patient, and the patient has had the opportunity to ask questions and have questions answered. If the patient notes any problems or changes in bowel function, the patient should contact me immediately. Otherwise I recommend follow up endoscopy in 3 years. HM updated and recall letter generated. Discussed treatment plan and patient voices understanding. Patient's questions answered appropriately. Medications and potential side effects were discussed and patient voices understanding. Return to the office as scheduled or as needed for worsening/no improvement. Yeny Lyons APRN.[place] Risk of morbidity, mortality and/or complications of treatment plan: low I spent a total of 10 minutes on the date of the service which included preparing to see the patient, [id number] patient care, completing clinical documentation, and communicating results to the patient/family/caregiver. [facility] 03-11-2025 Telephone encounter Note Pt is scheduled today. Alma Santiago MA [place] 03-11-2025 Miscellaneous Notes Pt is scheduled today. Alma Santiago MA Yeny Lyons APRN.ROTATING EQUIPMENT SPECIALIST to [facility] [place] She should schedule an appt- recommend virtual. Abdullahi documented in this encounter [place] 03-10-2025 Telephone encounter Note Yeny Lyons APRN.ROTATING EQUIPMENT SPECIALIST to [facility] General Surgery [place] She should schedule an appt- recommend virtual. Mar [place] 02-18-2025 History of Presen t illness Narrative HISTORY AND PHYSICAL Marianne Saucedo : 2000 REFERRING PHYSICIAN: Francesca Gill [address] [facility] [address] CHIEF COMPLAINT: Patient presents with: Diarrhea: Sent by PCP for possible colonoscopy HPI: Marianne is a 24 year old female referred for endoscopy. Marianne notes diarrhea. Marianne notes cramping abdominal pain prior to diarrhea. Marianne notes diarrhea. -for the last 2 months -5 to 6 bowel movements a day -30 minutes after eating -post cholecystectomy 2014 -stool samples negative Marianne notes a distant history of constipation. Marianne denies melena. Marianne denies bright red blood per rectum. Marianne notes hemorrhoids. Marianne denies family history of colon issues. Marianne notes heartburn. -increase over the last 2 weeks Marianne notes dysphagia. Marianne denies a history of ulcers/ peptic ulcer disease. Marianne was recently in the ED for chest pain -cardiac/respiratory work up was negative, GI cocktail improved symptoms -started on protonix Nausea in the AM Marianne has not undergone prior endoscopy. Current Outpatient Medications Medication Sig fluticasone (FLONASE) 50 mcg/actuation nasal [...] hours as needed for wheezing/shortness of breath. peg 3350-Electrolytes (GOLYTELY) 236-22.74-6.74 -5.86 gram suspension Refer to printed prep instructions from your provider. No current facility-administered medications for this visit. ALLERGIES: Patient has no known allergies. 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 Anemia BMI 39.0-39.9,adult Bronchiolitis as resolved Chest pain due to GERD Cholestasis of in second trimester (HCC) 05/10/2016 Constipation 11/08/2011 depression counseling only Family history of adrenal cancer Family history of breast cancer Family history of pancreatic cancer NEGATIVE MEDICAL HISTORY normal color vision Pancreatitis ([facility]) with gallbladder issues depression Seasonal allergic rhinitis due to pollen Strep throat recurrent, tonsillectomy age 3 years [...] use: No Drug use: No REVIEW OF SYMPTOMS: REVIEW OF SYSTEMS: General: The patient + fatigue, denies weight loss, + weight gain, denies feeling hot, and feelings of cold. Eyes: The patient denies glaucoma, denies eye injury/surgery, denies glasses or contacts. Ear/Nose/Throat: The patient denies allergies, denies hayfever, denies ear infections, and denies bloody noses. Cardiovascular: The patient denies chest pain, denies heart disease, denies high blood pressure, denies high cholesterol, and denies poor circulation. Respiratory: The patient denies tuberculosis, denies pneumonia, denies frequent cough, denies shortness of breath, and denies coughing up blood. Gastrointestinal: The patient denies difficulty swallowing, + acid reflux, denies ulcers, denies jaundice/hepatitis, + gallbladder problems, denies vomiting, denies black or tarry stools, + hemorrhoids, denies bleeding from rectum, denies diverticulitis, + constipation, + diarrhea, denies loss of stool control, and denies hernias. Kidney/Bladder: The patient denies kidney stones, denies urine infections, and denies bloody urine. Skin: The patient denies a history of skin cancer, denies bleeding/changing moles, and denies a history of skin rash. Neurologic: The patient denies a history of epilepsy/convulsions, + headaches, denies head/spinal injuries, and denies stroke/TIA. Psychiatric: The patient denies psychiatric medications, + depression, and denies voices. Endocrine: The patient denies thyroid disorders, denies diabetes, and denies hormonal problems. Hematologic: The patient denies a history of bruising, denies bleeding, and + anemia. Infections: The patient denies a history of measles and mumps, denies rheumatic fever, and denies sexually transmitted diseases. Musculoskeletal: The patient denies back pain/injury, denies back problems, denies sciatica, denies knee/foot trouble, denies arthritis, or denies gout. PHYSICAL EXAMINATION: General: The patient is 24 year old, female well nourished, well hydrated in no acute distress. The patient is oriented to time, place, and person. VITALS: Blood pressure 117/80, pulse 84, resp. rate 14, weight 102 kg (224 lb 12.8 oz), last menstrual period 05/06/2023. Body mass index is 39.82 kg/m . HEENT: Normal cephalic, ataumatic, pupils are equally round, sclera are anicteric, mucous membranes are moist, oropharynx is clear. Neck has no masses or asymmetry . Respiratory: Clear to auscultation. Cardiac: Regular rate and rhythm. Abdominal exam: Soft, nontender, with no palpable masses. No hepatosplenomegaly. No palpable hernias. Extremities: no clubbing or cyanosis LABORATORY VALUES: As Noted RADIOLOGIC STUDIES: As Noted Assessment IMPRESSION: diarrhea, heart burn, nausea PLAN: I have reviewed my findings with the surgeon. Will plan for upper and lower endoscopy with random colon biopsies. We discussed the risks and benefits of the planned endoscopy in terms understandable to the patient. I have informed the patient that complications can occur including failure to complete the endoscopy and perforation. Marianne had the opportunity to ask questions concerning the planned endoscopy. Marianne freely consents to surgery. I plan to use Golytely bowel preparation I have explained to the patient the difference between IV conscious sedation and MAC anesthesia - and I have offered either, according to the patient's wishes. I have explained that with IV conscious sedation there is no anesthesia provider available and therefore there is a limitation of the amount of IV medications that can be given and that the patient may wake up in the middle of the procedure and/or experience pain/discomfort during the procedure. Further discussion was done and the patient was given the opportunity to ask questions and all questions were answered. MAC anesthesia. Marianne was counseled that if there are changes in his/her medical condition, to let the office know if surgery should proceed. If there are changes in patient's medical condition from time of this encounter to the day of the procedure that preclude anesthesia, patient may have procedure cancelled for patient's safety. Diagnoses: (R12) Heart burn (primary encounter diagnosis) (R19.7) Diarrhea, unspecified type (R11.0) Nausea Consultation requested by Dr. Gill for an opinion regarding diarrhea. My final recommendations will be communicated back to the requesting physician by way of shared Medical record or letter to requesting physician via US mail. Portions of this documentation were copied and pasted from previous office visit notes in order to provide a cohesive continuity of the history. The note has been reviewed and edited and updated as necessary. Yeny Lyons APRN.HAVEN documented in this encounter [place] 02-18-2025 Note HNO ID: [id number] Author: YENY LYONS APRN.HAVEN Service: ? Author Type: Nurse Practitioner Type: Progress Notes Filed: 02/18/2025 14:25 Note Text: HISTORY AND PHYSICAL Marianne Saucedo : 2000 REFERRING PHYSICIAN: Francesca Gill [address] [facility] [address] CHIEF COMPLAINT: Patient presents with: Diarrhea: Sent by PCP for possible colonoscopy HPI: Marianne is a 24 year old female referred for endoscopy. Marianne notes diarrhea. Marianne notes cramping abdominal pain prior to diarrhea. Marianne notes diarrhea. -for the last 2 months -5 to 6 bowel movements a day -30 minutes after eating -post cholecystectomy 2014 -stool samples negative Marianne notes a distant history of constipation. Marianne denies melena. Marianne denies bright red blood per rectum. Marianne notes hemorrhoids. Marianne denies family history of colon issues. Marianne notes heartburn. -increase over the last 2 weeks Marianne notes dysphagia. Marianne denies a history of ulcers/ peptic ulcer disease. Marianne was recently in the ED for chest pain -cardiac/respiratory work up was negative, GI cocktail improved symptoms -started on protonix Nausea in the AM Marianne has not undergone prior endoscopy. Current Outpatient Medications Medication Sig fluticasone (FLONASE) 50 mcg/actuation nasal [...] hours as needed for wheezing/shortness of breath. peg 3350-Electrolytes (GOLYTELY) 236-22.74-6.74 -5.86 gram suspension Refer to printed prep instructions from your provider. No current facility-administered medications for this visit. ALLERGIES: Patient has no known allergies. 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 Anemia BMI 39.0-39.9,adult Bronchiolitis as resolved Chest pain due to GERD Cholestasis of in second trimester (HCC) 05/10/2016 Constipation 11/08/2011 depression counseling only Family history of adrenal cancer Family history of breast cancer Family history of pancreatic cancer NEGATIVE MEDICAL HISTORY normal color vision Pancreatitis (HCC) with gallbladder issues depression Seasonal allergic rhinitis due to pollen Strep throat recurrent, tonsillectomy age 3 years [...] use: No Drug use: No REVIEW OF SYMPTOMS: REVIEW OF SYSTEMS: General: The patient + fatigue, denies weight loss, + weight gain, denies feeling hot, and feelings of cold. Eyes: The patient denies glaucoma, denies eye injury/surgery, denies glasses or contacts. Ear/Nose/Throat: The patient denies allergies, denies hayfever, denies ear infections, and denies bloody noses. Cardiovascular: The patient denies chest pain, denies heart disease, denies high blood pressure, denies high cholesterol, and denies poor circulation. Respiratory: The patient denies tuberculosis, denies pneumonia, denies frequent cough, denies shortness of breath, and denies coughing up blood. Gastrointestinal: The patient denies difficulty swallowing, + acid reflux, denies ulcers, denies jaundice/hepatitis, + gallbladder problems, denies vomiting, denies black or tarry stools, + hemorrhoids, denies bleeding from rectum, denies diverticulitis, + constipation, + diarrhea, denies loss of stool control, and denies hernias. Kidney/Bladder: The patient denies kidney stones, denies urine infections, and denies bloody urine. Skin: The patient denies a history of skin cancer, denies bleeding/changing moles, and denies a history of skin rash. Neurologic: The patient denies a history of epilepsy/convulsions, + headaches, denies head/spinal injuries, and denies stroke/TIA. Ps (more content not included)... [facility] 02-09-2025 History of Presen t illness Narrative Radiology Service Progress Note PATIENT NAME: Marianne Saucedo DATE OF SERVICE: February 09, 2025 TIME: 8:21 AM PATIENT IDENTITY VERIFICATION COMPLETED USING TWO [...] PATIENT PRESENTS WITH AN IMPLANTABLE OR ATTACHED SALES ACCOUNT COORDINATOR: No RADIOLOGY DEPARTMENT: Ultrasound PERIPHERAL IV DATA: Not applicable SIGNED BY: Deisy Stone RDMS February 09, 2025 8:21 AM documented in this encounter [place] 02-09-2025 Note HNO ID: [id number] Author: DEISY STONE RDMS Service: ? Author Type: Hospitality Coordinator Type: Progress Notes Filed: 02/09/2025 08:21 Note Text: Radiology Service Progress Note PATIENT NAME: Marianne Saucedo DATE OF SERVICE: February 09, 2025 TIME: 8:21 AM PATIENT IDENTITY VERIFICATION COMPLETED USING TWO [...] PATIENT PRESENTS WITH AN IMPLANTABLE OR ATTACHED SALES ACCOUNT COORDINATOR: No RADIOLOGY DEPARTMENT: Ultrasound PERIPHERAL IV DATA: Not applicable SIGNED BY: Deisy Stone RDMS February 09, 2025 8:21 AM [facility] 02-07-2025 Discharge summary [facility] 02-07-2025 Radiology Diagnostic study note [facility] Imaging Services [address] [place], [place] [id number] Chest PA and Lateral MR#: [id number] Acct: [id number] Name: MARIANNE SAUCEDO UNRULY Rep #: [id number] : 2000 F 24 From: Kusum Austin MD PCP: Dr. Francesca Gill MD Status: RE G ER Study:Chest PA and Lateral Date of Exam: 02/07/25 Exam# [id number] Ordering Dr: Hakan Bullock MD PROCEDURE: CHEST PA AND LATERAL 02/07/2025 REASON FOR EXAM: CHEST PAIN TECHNIQUE: CHEST PA AND LATERAL COMPARISON: 12/06/2024 FINDINGS: Normal heart size. Elevated right hemidiaphragm. Well inflated lungs. No consolidation, effusion, or pneumothorax. RAD/Chest PA and Lateral IMPRESSION: No acute chest findings Reading Location: [place] [address] CC: Dr. Rojelio Bullock MD; Dr. Francesca Gill MD ~ Steamfitter: Signed [facility] 02-04-2025 History of Present illness Narrative Images from the original note were not included. [facility] Department of Medical Genetics Consultation Note Genetic Counselor: Irena Espinoza MS, [facility] [place]: Marianne Saucedo Patient [...] today. IDENTIFICATION AND CHIEF COMPLAINT: Sam Osborne APRN.C* requested a consultation for genetic counseling and [...] Son The patient's maternal ancestors are of [place] descent and paternal ancestors are of mixed descent. There is no known Ashkenazi Methodist ancestry. There is no known consanguinity. A [...] appropriate standard National Comprehensive Cancer Network and [place] Cancer Society guidelines, with consideration of their [...] NTHL1, PALB2, PDGFRA, PMS2, POLD1, POLE, POT1, NJBKQ6K, PTCH1, PTEN, RAD51C, RAD51D, RB1, RET, SDHA, SDHAF2, SDHB, SDHC, SDHD, SMAD4, SMARCA4, SMARCB1, SMARCE1, STK11, SUFU, VGKF788, TP53, TSC1, TSC2, VHL The Multi-Cancer panel [...] to the presenting phenotype. We discussed that [employer] may contact the patient regarding billing. The patient should watch for this communication and respond promptly. The patient should contact [employer] directly with any billing questions (ph. [phone] or [email or web address]). Per the patient's request, we will contact her by myChart or telephone to review these results. A follow up genetic counseling visit will be scheduled if requested. I spent a total of 30 minutes on the date of the service, which included preparing to see the patient, [id number] patient care, completing clinical documentation, obtaining and/or reviewing separately obtained history, counseling and educating the patient/family/caregiver, ordering tests, communicating with other HCPs (not separately reported), independently interpreting results (not separately reported), communicating results to the patient/family/caregiver, and care coordination (not separately reported). This plan is being carried out under the oversight of Dr. Jesenia Kramer MD, PhD. This note will also be sent to the referring provider via the electronic medical record. Irena Espinoza MS, [facility] CC: Sam Osborne APRN.C* Jesenia Kramer MD, PhD documented in this encounter [place] 02-04-2025 Note HNO ID: [id number] Author: IRENA ESPINOZA MS Service: ? Author Type: Genetic Counselor Type: Progress Notes Filed: 02/04/2025 15:35 Note Text: [facility] Department of Medical Genetics Consultation Note Genetic Counselor: Irena Espinoza MS, [facility] [place] Patient: Marianne Saucedo Patient Name and confirmed at initiation of visit. HIGH LEVEL SUMMARY: The patient's family history is potentially suggestive of a hereditary cancer syndrome. The patient provided informed consent for Multi-Cancer panel through [employer]. Results are expected in 2-3 weeks from [...] Son The patient's maternal ancestors are of [place] descent and paternal ancestors are of mixed descent. There is no known Ashkenazi Methodist ancestry. There is no known consanguinity. A [...] hereditary cancer syndrome as the explanation for t (more content not included)... [facility] 02-01-2025 Telephone encounter Note See pt message and advise. Sarah Mckeon MA [place] 02-01-2025 Miscellaneous Notes See pt message and advise. Sarah Mckeon MA documented in this encounter [place] 02-01-2025 Telephone encounter Note Pt active on [employer]- message sent Brooklyn Gonsalez MA [place] 02-01-2025 Miscellaneous Notes Pt active on mychart- [...] xray is normal. documented in this encounter [place] 02-01-2025 Telephone encounter Note Please let patient know I have placed an order for a RUQ US as her amylase is lower than it has been in the past. [place] 01-31-2025 Note Addended by: DARIN WALKER on: 01/31/2025 08:44 PM Modules accepted: Orders [place] 01-31-2025 Miscellaneous Notes Addended by: DARIN WALKER on: 01/31/2025 08:44 PM Modules accepted: Orders documented in this encounter [place] 01-31-2025 Telephone encounter Note Pt active on [employer]- message sent. Will leave encounter open until message is read Brooklyn Gonsalez MA [place] 01-31-2025 Telephone encounter Note Please let patient know their xray is normal. [place] 01-31-2025 History of Present illness Narrative Radiology [...] PATIENT PRESENTS WITH AN IMPLANTABLE OR ATTACHED SALES ACCOUNT COORDINATOR: No RADIOLOGY DEPARTMENT: General X-ray: Exam(s) Completed: Abdomen X-Ray: Abdomen PERIPHERAL IV DATA: Not applicable SIGNED BY: ALICIA Penn) January 31, 2025 11:48 AM documented in this encounter [place] 01-31-2025 Note HNO ID: [id number] Author: GHAZAL BACK RT(R) Service: ? Author [...] PATIENT PRESENTS WITH AN IMPLANTABLE OR ATTACHED SALES ACCOUNT COORDINATOR: No RADIOLOGY DEPARTMENT: General X-ray: Exam(s) Completed: Abdomen X-Ray: Abdomen PERIPHERAL IV DATA: Not applicable SIGNED BY: Ghazal Back RT(R) January 31, 2025 11:48 AM [facility] 01-31-2025 Note HNO ID: [id number] Author: SAM OSBORNE APRN.ROTATING EQUIPMENT SPECIALIST Service: ? Author Type: Nurse Practitioner Type: Progress Notes Filed: 01/31/2025 11:04 Note Text: Chief Complaint Patient presents with: Diarrhea: X 2 months Headache: X 1 day HPI Marianne Saucedo is a 24 year old female who presents here today for Above Complaints. Patient presents for diarrhea x2 months. Denies abd pain, n/v, fever, chills. 5-6 BM per day, color is variable. Reports loader happen anytime but does happen within 30 minutes of eating. No antibiotic use prior to start of diarrhea. Past medical history, appointments, medications, allergies reviewed. 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 (HCC) 05/10/2016 Constipation 11/08/2011 depression counseling only NEGATIVE MEDICAL HISTORY normal color vision Pancreatitis ([facility]) with gallbladder issues depression Strep throat recurrent, [...] ABDOMEN 1V SUPINE Sam Osborne APRN.[facility] 01-31-2025 History of Present illness Narrative Chief Complaint Patient presents with: Diarrhea: X 2 months Headache: X 1 day HPI Marianne Saucedo is a 24 year old female who presents here today for Above Complaints. Patient presents for diarrhea x2 months. Denies abd pain, n/v, fever, chills. 5-6 BM per day, color is variable. Reports loader happen anytime but does happen within 30 minutes of eating. No antibiotic use prior to start of diarrhea. Past medical history, appointments, medications, allergies reviewed. 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 (HCC) 05/10/2016 Constipation 11/08/2011 depression counseling only NEGATIVE MEDICAL HISTORY normal color vision Pancreatitis ([facility]) with gallbladder issues depression Strep throat recurrent, [...] - XR ABDOMEN 1V SUPINE Sam Osborne APRN.ROTATING EQUIPMENT SPECIALIST documented in this encounter [place] 01-27-2025 Note HNO ID: [id number] Author: NIKITA DANIELS MD Service: ? Author [...] and usually diffuse distribution on lips Procedures [facility] 01-27-2025 History of Present illness Narrative [facility] Marianne Saucedo is a 24 year old [...] on lips Procedures documented in this encounter [place] 12-23-2024 Telephone encounter Note Patient called to clarify that she needs the CPT code for the allergy shot to provide to insurance. [place] 12-23-2024 Miscellaneous Notes Patient called to clarify that she needs the CPT code for the allergy shot to provide to insurance. documented in this encounter [place] 12-23-2024 Note HNO ID: [id number] Author: MANE HANNA, DO Service: ? Author [...] was not helpful Previous evaluation by an drag down? [] Yes [x] No Antihistamine use in [...] 1 drop in both eyes once daily. Scbylstwborbpib-Clsnlcigz-XN (BROMFED DM) 2-30-10 mg/5 mL syrup Take 5 mL by mouth four times a day as needed. (Patient not taking: Reported on 12/23/2024) No current facility-administered medications for this visit. ALLERGIES No Known Allergi (more content not included)... [facility] 12-23-2024 History of Present illness Narrative Images [...] was not helpful Previous evaluation by an drag down? [] Yes [x] No Antihistamine use in [...] 1 drop in both eyes once daily. Ticdkajemzvirpm-Shlpfhzey-UJ (BROMFED DM) 2-30-10 mg/5 mL syrup Take [...] prior results, notable as below: Latest Ref Rng 10/08/2024 WBC 3.70 - 11.00 k/uL 11.35 [...] Abs Lymph 1.00 - 4.00 k/uL 2.56 Cheyenne% % 6.8 Abs Cheyenne <0.87 k/uL 0.77 Eosin% % 2.7 Abs [...] skin test results; will review results via [employer]. - Patient to check insurance coverage for allergy shots and inform via [employer]. 2. Adverse food reaction, sequela (T78.1XXS) History [...] participate in the care of this patient. Maen Hanna DO Allergy and Clinical Immunology [place] I spent a total of 32 minutes on the date of the service which included preparing to see the patient, [id number] patient care, completing clinical documentation, obtaining and/or reviewing separately obtained history, performing a medically appropriate examination, counseling and educating the patient/family/caregiver, and ordering medications, tests, or procedures. Recording using Imagine K12 software for draft documentation of the visit was discussed with the patient/authorized contact center representative; all questions welcomed and answered. Patient/authorized contact center representative agreed to proceed Patient PCP referred patient due to chronic congestion that has gotten worse this year. Patient reports that it seems worse in the spring. Has some symptoms throughout that year. Patient has take Claritin but did not get any relief. documented in this encounter [place] 12-23-2024 Note HNO ID: [id number] Author: DAVINA PEDROZA LPN Service: ? Author Type: LICENSED NURSE Type: Progress Notes Filed: 12/23/2024 10:55 Note Text: Patient PCP referred patient due to chronic congestion that has gotten worse this year. Patient reports that it seems worse in the spring. Has some symptoms throughout that year. Patient has take Claritin but did not get any relief. [facility] 12-16-2024 Telephone encounter Note See pt message. Pt ED records in scanning. Pt advised that Providers are out of the office today and return tomorrow. Sarah Mckeon MA [place] 12-16-2024 Miscellaneous Notes See pt message. Pt ED records in scanning. Pt advised that Providers are out of the office today and return tomorrow. Sarah Mckeon MA documented in this encounter [place] 12-15-2024 Discharge summary [facility] 12-06-2024 Discharge summary [facility] 12-06-2024 Radiology Diagnostic study note [facility] Imaging Services [address] [place] [address] Chest PA and Lateral MR#: [id number] Acct: [id number] Name: MARIANNE SAUCEDO UNRULY Rep #: [id number] : 2000 F 24 From: Ham Rosas MD PCP: ONE[facility]os Status: PRE ER Study:Chest PA and Lateral Date of Exam: 12/06/24 Exam# [id number] Ordering Dr: Hakan Bullock MD PROCEDURE: CHEST [...] No evidence of acute disease. Reading Location: [id number] CC: ONE[facility] Barraza; Dr. Rojelio Bullock MD ~ Steamfitter: Signed [facility] 12-05-2024 Instructions Ann Vega APRN.ROTATING EQUIPMENT SPECIALIST - 12/05/2024 2:34 PM EDT 1. Sore [...] cough - ICD9: 465.9, ICD10: J06.9 - YHPOBNVACVFEEMG-CAGUNUVJEZONWFO-EK 2 MG-30 MG-10 MG/5 ML ORAL SYRUP [...] next 5-6 days. documented in this encounter [place] 12-05-2024 Note HNO ID: [id number] Author: ANN VEGA APRN.ROTATING EQUIPMENT SPECIALIST Service: ? Author Type: Nurse Practitioner Type: Progress Notes Filed: 12/05/2024 14:46 Note Text: [facility] Subjective Marianne [...] NEGATIVE MEDICAL HISTORY normal color vision Pancreatitis ([facility]) with gallbladder issues depression Strep throat recurrent, [...] hours as needed for wheezing/shortness of breath. Wpspfhplwxgiven-Yyslnobjs-VI (BROMFED DM) 2-30-10 mg/5 mL syrup Take [...] cough - ICD9: 465.9, ICD10: J06.9 - NDTWFJLNIDRKOAC-XCCRUISANDJGUEA-BG 2 MG-30 MG-10 MG/5 ML ORAL SYRUP - Follow-up with your PCP in 3-5 days if symptoms have not improved or sooner if symptoms worsen - Discussed red flags and need for immediate medical evaluation if any occur. - Discussed supportive care treatment with fluids, rest and analgesia. - Discussed expected course of illness Ann Vega APRN.ROTATING EQUIPMENT SPECIALIST Recording using ambient Orgdot software for draft documentation of the visit was discussed with the patient/authorized contact center representative; all questions welcomed and answered. Patient/authorized contact center representative agreed to proceed Disposition The patient was discharged. OTC Medications were advised: Procedures [facility] 12-05-2024 History of Present illness Narrative [facility] [...] NEGATIVE MEDICAL HISTORY normal color vision Pancreatitis ([facility]) with gallbladder issues depression Strep throat recurrent, [...] hours as needed for wheezing/shortness of breath. Rnjlctzdjsbyfht-Ibxmpzpdb-WR (BROMFED DM) 2-30-10 mg/5 mL syrup Take [...] cough - ICD9: 465.9, ICD10: J06.9 - DGFBPFSRXYTPJCN-IHVWFIUJATCDDHR-YV 2 MG-30 MG-10 MG/5 ML ORAL SYRUP - Follow-up with your PCP in 3-5 days if symptoms have not improved or sooner if symptoms worsen - Discussed red flags and need for immediate medical evaluation if any occur. - Discussed supportive care treatment with fluids, rest and analgesia. - Discussed expected course of illness Ann Vega APRN.HAVEN Recording using Imagine K12 software for draft documentation of the visit was discussed with the patient/authorized contact center representative; all questions welcomed and answered. Patient/authorized contact center representative agreed to proceed Disposition The patient was discharged. OTC Medications were advised: Procedures documented in this encounter [place] 11-25-2024 History of Present illness Narrative Chief [...] Never done Anxiety Screening Never done Covid-19 Vaccine(2023- season) due on 03/21/2024 Influenza Vaccine(Season Ended) [...] Past Histories independently gathered by the clinical computer support specialist instructor and the remaining scribed note accurately describes my personal service to the patient. Medical Decision Making: Problems: Low: Acute, uncomplicated illness or injury Risk: Moderate: Drug management Medical Decision Making Level: 3 - Low Francesca Gill MD The documentation for this note was completed by Sarah Mckeon MA acting as scribe for Francesca Gill MD. November 25, 2024 8:52 AM. Sarah Mckeon MA documented in this encounter [place] 11-25-2024 Note HNO ID: [id number] Author: FRANCESCA GILL MD Service: ? Author [...] with the C (more content not included)... [facility] 11-17-2024 Note HNO ID: [id number] Author: JOB PEREIRA APRN.ROTATING EQUIPMENT SPECIALIST Service: ? Author Type: Nurse Practitioner Type: Progress Notes Filed: 11/17/2024 14:02 Note Text: [facility] Subjective Marianne A Paia is a 24 year old female. Patient presents with: Sore Throat: nasal congestion, drainage and nausea x 1 week Patient came in with complaints of a weeks worth of sinus congestion drainage sore throat. Patient says it does not seem to be getting better. Patient denies any shortness of breath or other symptoms. The history is provided by the patient. No staff interpreter was used. Sore Throat Associated symptoms include [...] MG-POTASSIUM CLAVULANATE 125 MG TABLET Job Pereira APRN.ROTATING EQUIPMENT SPECIALIST History and Record Review External record(s) reviewed: no prior records. Disposition The patient was discharged. Procedures [facility] 11-17-2024 History of Present illness Narrative [facility] [...] history is provided by the patient. No staff interpreter was used. Sore Throat Associated symptoms include [...] MG-POTASSIUM CLAVULANATE 125 MG TABLET Job Pereira APRN.CNP History and Record Review External record(s) reviewed: no prior records. Disposition The patient was discharged. Procedures documented in this encounter [place] 10-08-2024 Telephone encounter Note Pt called and is notified of providers message and instructions. Pt voices understanding. Kandy Vera RN [place] 10-08-2024 Miscellaneous Notes Pt called and is [...] but are not limited to: Imitrex Nasal [place], naratriptan tablets, rizatriptan (oral disintegrating tablets and tablets), and sumatriptan (injection, nasal spray, and tablets). The [facility] Policy for Medical Necessity as posted on the [facility] website and [facility] Preferred Drug List criteria were reviewed and per [place] Administrative Code Rule 5160-1-01 (C) and (B), [...] completed for ubrelvy. documented in this encounter [place] 10-08-2024 Telephone encounter Note Please let patient know her insurance rejected ubrelvy. I sent in an rx for imitrex. She should try this for 2 weeks and follow up with PCP team. [place] 10-08-2024 Telephone encounter Note This was denied. [...] but are not limited to: Imitrex Nasal [place], naratriptan tablets, rizatriptan (oral disintegrating tablets and tablets), and sumatriptan (injection, nasal spray, and tablets). The [employer] Policy for Medical Necessity as posted on the [facility] website and [facility] Preferred Drug List criteria were reviewed and per [place] Administrative Code Rule 5160-1-01 (C) and (B), [...] that might be available through the community [place] 10-08-2024 Telephone encounter Note Electronic PA rec'd ad completed for ubrelvy. [place] 10-08-2024 Note HNO ID: [id number] Author: SAM OSBORNE APRN.ROTATING EQUIPMENT SPECIALIST Service: ? Author Type: Nurse Practitioner Type: [...] the pain is either on her left judaism or in between her eyes. Patient denies [...] SOLUTION Toradol administered during appt. 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 Sam Osborne, JENNIFER.[facility] 10-08-2024 History of Present illness Narrative Chief [...] the pain is either on her left judaism or in between her eyes. Patient denies [...] SOLUTION Toradol administered during appt. 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 Sam Osborne APRN.HAVEN documented in this encounter [place] 05-14-2024 Note HNO ID: [id number] Author: DEBO NIELSON APRN.CNP Service: ? Author Type: Nurse Practitioner [...] L3 SAB0 IAB0 Ectopic0 Multiple0 Live Births3 Water Systems Engineer History LMP: 05/06/2023 (Exact Date), IUD Age at Menarche: Age at First : Age at Menopause: Water Systems Engineer History Comments: Sexual Activity: Yes; Male Contraception: [...] changes, redness or skin retraction. Expanded ROS: MACHINE BENDER: + vaginal odor, itching, and discharge Allergies and current medication updated:Yes SENSITIVE EXAM: The sensitive examination was discussed with the Patient or Patient's Authorized Rn Circulating. As applicable, any other physician, advance practice provider, medical student, or other health professional student that will be observing or involved in the sensitive examination for educational or training purposes was discussed with the Patient or Authorized Rn Circulating. The Patient or Authorized Rn Circulating has agreed to proceed with the sensitive examination. (Sensitive examination includes inspection and/or palpation of the breasts, pelvis, prostate and anorectal regions). EXAM: BP 110/60 Wt 218 lb (98.9kg) LMP 05/06/2023 GENERAL: pleasant, female in no apparent distress CHEST: Normal inspiratory effort PELVIC: external genitalia erythematous and irritated, normal Bartholin's glands, urethra, Gayle Mill's glands, no vulvar lesions, no cervical lesions, [...] Pap done RTO for annual. 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 Expanded ROS: MACHINE BENDER: + vaginal odor, itching, and discharge Allergies and current medication updated:Yes SENSITIVE EXAM: The sensitive examination was discussed with the Patient or Patient's Authorized Rn Circulating. As applicable, any other physician, advance practice provider, medical student, or other health professional student that will be observing or involved in the sensitive examination for educational or training purposes was discussed with the Patient or Authorized Rn Circulating. The Patient or Authorized Rn Circulating has agreed to proceed with the sensitive examination. (Sensitive examination includes inspection and/or palpation of the breasts, pelvis, prostate and anorectal regions). EXAM: BP 110/60 Wt 218 lb (98.9kg) LMP 05/06/2023 GENERAL: pleasant, female in no apparent distress CHEST: Normal inspiratory effort PELVIC: external genitalia erythematous and irritated, normal Bartholin's glands, urethra, Gayle Mill's glands, no vulvar lesions, no cervical lesions, [...] Pap done RTO for annual. Debo Nielson APRN.CNP Medical Decision Making: Problems: Low: Acute, uncomplicated illness or injury Data: Unique test(s) ordered: 3+ Risk: Low: Low risk from testing/treatment Moderate: Drug management Medical Decision Making Level: 4 - Moderate documented in this encounter [place] 02-23-2024 Telephone encounter Note Pt was seen in [facility] ED. Report scanned into pt's chart. Sarah Mckeon MA [place] 02-23-2024 Miscellaneous Notes Pt was seen in [facility] ED. Report scanned into pt's chart. Sarah Mckeon MA Pt called and is notified of providers message and instructions. Pt voices understanding. Pt states she will probably go to [facility] ER. I let her know I will let providers office know she they can watch for report. Kandy Vera RN Can you please call the patient and let her know that I would recommend an evaluation in the ER if the rectal bleeding has gotten worse. Thank you. Angy Avila APRN.ROTATING EQUIPMENT SPECIALIST So I ve went to the bathroom [...] Amy Pickard LPN documented in this encounter [place] 02-23-2024 Telephone encounter Note Pt called and is notified of providers message and instructions. Pt voices understanding. Pt states she will probably go to [facility] ER. I let her know I will let providers office know she they can watch for report. Kandy Vera, IVAN [place] 02-23-2024 Telephone encounter Note Can you please call the patient and let her know that I would recommend an evaluation in the ER if the rectal bleeding has gotten worse. Thank you. Angy Avila APRN.ROTATING EQUIPMENT SPECIALIST [place] Work Phone: 02-23-2024 Telephone encounter Note So [...] go sit in the er for hours [place] 02-21-2024 Telephone encounter Note Patient call in [...] time. 10. : Denies Protocols used: Rectal [id number]-[id number]-SZ [place] 02-21-2024 Telephone encounter Note See Nurse Triage Encounter. T [place] 02-21-2024 Miscellaneous Notes See Nurse Triage Encounter. documented in this encounter [place] 02-21-2024 Miscellaneous Notes Patient call in for [...] time. 10. : Denies Protocols used: Rectal Tkupueam-PKYAC-AY documented in this encounter [place] 02-18-2024 Instructions Angy Avila APRN.CNP - 02/18/2024 7:01 AM EDT Increase water and fiber in the diet. Monitor stool for bleeding If needed may use Miralax 1-2 times per day as needed for constipation Use steroid cream to rash Follow up with any reoccurring symptoms. documented in this encounter [place] 02-18-2024 History of Present illness Narrative This [...] have gotten poison jimmy. Has been applying fhuo-gdy-binypau cortisone cream on it without much relief. [...] APRN.HAVEN This note was partially generated using [place] voice recognition system. Note was reviewed for accuracy. There may be minor misspellings or grammar miscues with [place] voice recognition. documented in this encounter [place] 02-17-2024 Telephone encounter Note Pt reports she noted a large amount of blood in stool & toilet water today with BM. Appt scheduled for 02/18/24 at 7AM with ATannhof. Amy Pickard LPN [place] 02-17-2024 Telephone encounter Note Pt notified she needs to make an appointment. Dot Russo MA' [place] 02-17-2024 Miscellaneous Notes Pt notified she needs to make an appointment. oDt Russo MA' documented in this encounter [place] 11-26-2023 History of Present illness Narrative This note was created using YaKlass. Subjective Marianne Saucedo is a 23 year old female. HPI Patient presents with cough and chest congestion for 3 days. She was seen in the ER on 11 23 until 11 24 overnight. She had negative COVID flu RSV [...] Annika Velazquez PA-C documented in this encounter [place] 07-05-2023 Miscellaneous Notes Patient notified. Verbalized understanding. 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 She may continue abreva, but I recommend stopping prednisone. documented in this encounter [place] 07-04-2023 Instructions Katia Brower APRN.ROTATING EQUIPMENT SPECIALIST - 07/04/2023 1:17 PM EST An appointment was made for you @ [facility] August 08, 2022 1:30 PM Please bring your insurance card and ID documented in this encounter [place] 07-04-2023 History of Present illness Narrative This note was created using Online[employer]. Subjective Marianne Saucedo is a 23 year [...] history is provided by the patient. No staff interpreter was used. Mouth/Lip Problem This is a [...] August Will obtain swab Attempted to call [facility] No openings until July Appt made for patient 08/08/22 @ 1330 with Debo RX Prednisone RX Abreva Katia Brower APRN.ROTATING EQUIPMENT SPECIALIST documented in this encounter [place] 06-25-2023 Instructions Kandy Paez MA - 06/25/2023 [...] contact the office. documented in this encounter [place] 06-25-2023 History of Present illness Narrative Lathe Setup Operator offered: Patient declines. Lopes presents today for IUD insertion for contraception. Patient's last menstrual period was 05/06/2023 (exact date). GC/chlamydia: Negative on test: negative Side effects including irregular bleeding were discussed with the patient. The patient understands that it should be removed in 8 years or sooner if the patient desires a . IUD source: office provided IUD lot #: [id number] Exp date: 06/2025 UNIVERSAL PROTOCOL / SAFETY [...] Laura Rea APRN.CNM documented in this encounter [place] 06-05-2023 History of Present illness Narrative CONTRACEPTION [...] Laura Rea APRN.CNM documented in this encounter [place] 02-06-2023 Miscellaneous Notes Pt scheduled tomorrow at 8:20 AM with Marcelo Barraza. Notified via [employer]cycle[employer]. Dot Russo Ma documented in this encounter [place] 11-01-2022 Miscellaneous Notes Please see pt's vaginal culture swab results and advise. Yolanda Engle LPN' documented in this encounter [place] 10-31-2022 Instructions Fiordaliza Pereira MD - 10/31/2022 [...] scratching at night. documented in this encounter [place] 10-31-2022 Miscellaneous Notes Addended by: FIORDALIZA PEREIRA on: 10/31/2022 02:10 PM Modules accepted: Orders documented in this encounter [place] 10-31-2022 History of Present illness Narrative Lathe Setup Operator offered: Patient declines. Marianne is a 22 [...] L3 SAB0 IAB0 Ectopic0 Multiple0 Live Births3 Water Systems Engineer History LMP: 09/18/2021, Having periods Age at Menarche: Age at First : Age at Menopause: Water Systems Engineer History Comments: Sexual Activity: Never; Male Contraception: [...] erythema inferior vulva, normal Bartholin's glands, urethra, Gayle Mill's glands, no vulvar lesions, no cervical lesions, [...] Fiordaliza Pereira MD documented in this encounter [place] 10-15-2022 Miscellaneous Notes Stray Bootst message sent to patient [place] Gonsalez Cma Please let patient know her xray is negative. documented in this encounter [place] 10-10-2022 History of Present illness Narrative Radiology [...] 2022 2:55 PM documented in this encounter [place] 10-10-2022 Instructions Sam Osborne APRN.CNP - 10/10/2022 2:49 PM EDT Complete xray Apply ice as needed Start naproxen with food Follow up in 7-10 days if no improvement. documented in this encounter [place] 10-10-2022 History of Present illness Narrative Chief [...] be helpful. Patient verbalized understanding and will curing pickling packer wrist brace at pharmacy. Patient to follow up if no improvement in 7-10 days. Sam Osborne APRN.HAVEN documented in this encounter [place] 10-10-2022 Miscellaneous Notes Pt wrote in saying she was unable to make appt. She was rescheduled to see Sam Osborne today at 2:20 pm. Sarah Mckeon Ma Pt accepted same day visit with AT at 1:40 pm. Sarah Mckeon Ma Offered 11:40 am with PCP on Wednesday 10/11. Sarah Mckeon Ma Message sent to pt notifying her of needing an appt to discuss. Sarah Mckeon Ma documented in this encounter [place] 10-02-2022 Miscellaneous Notes Just sent to pharmacy 10/01/22 Nena Monroy MA documented in this encounter [place] 10-01-2022 Miscellaneous Notes See pt message. Advise if she should use the refills or take daily medication. Sarah Mckeon Ma documented in this encounter [place] 09-10-2022 History of Present illness Narrative Chief [...] Past Histories independently gathered by the clinical computer support specialist instructor and the remaining scribed note accurately describes my personal service to the patient. Francesca Gill MD The documentation for this note was completed by Dot Russo Ma acting as scribe for Francesca Gill MD. September 10, 2022 4:08 PM. Dot Russo Ma documented in this encounter [place] 09-09-2022 Miscellaneous Notes Pt accepted appt. Dot Russo Ma Offered pt VV appt tomorrow 09/10/22 at 4:40 PM with PCP to evaluate mouth blisters. Awaiting her response. documented in this encounter [place] 10-17-2021 History of Present illness Narrative Chief Complaint Patient presents with: Cough: stuffy nose sore throat, no fever or chills or body aches HPI Marianne Saucedo is a 21 year old female who [...] agreeable to treatment plan. Ann Marie Bailey APRN.ROTATING EQUIPMENT SPECIALIST [address] [place] [address] documented in this encounter [place] 10-24-2020 History of Past i llness Narrative [...] third trimester 01/1902/13/2017 Overview: Boy on - [place] Nausea/vomiting in 02/08/2016 Overview: February 26, 2016 [...] of this encounter (statuses as of 10/17/2021) [place]-06-2021 History of Past illness Narrative* Problem Noted [...] third trimester 01/1902/13/2017 Overview: [place] on - [place] Nausea/vomiting in 02/08/2016 Overview: February 26, 2016 [...] of this encounter (statuses as of 02/07/2022) [place]-06-2021 History of Past illness Narrative* Problem Noted Date Resolved Date Positive GBS test 10/24/2020 03/27/2021 Overview: 10/22/20- GBS positive. 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 Katia Mireles APRN.CORY Iron malabsorption 06/23/2017 07/23/2017 Iron deficiency anemia [...] third trimester 01/1902/13/2017 Overview: Boy on - [place] Nausea/vomiting in 02/08/2016 Overview: February 26, 2016 [...] of this encounter (statuses as of 09/09/2022) [place] History of Past illness Narrative* Problem Noted [...] in third trimester 01/1902/13/2017 Overview: Boy on [facility] Nausea/vomiting in 02/08/2016 Overview: February 26, 2016 [...] of this encounter (statuses as of 09/11/2022) [place]06[facility] History of Past illness Narrative* Problem Noted Date Resolved Date Positive GBS test 10/24/2020 03/27/2021 Overview: 10/22/20- GBS positive. 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 [...] 02/08/2016 Overview: February 26, 2016 ordered bernie iDckey MD 02/08/2016Patient is complaining of nausea in [...] of this encounter (statuses as of 10/02/2022) [place] History of Past illness Narrative* Problem Noted [...] third trimester 01/1902/13/2017 Overview: [place] on - [place] Nausea/vomiting in 02/08/2016 Overview: February 26, 2016 [...] of this encounter (statuses as of 10/02/2022) [place] History of Past illness Narrative* Problem Noted [...] pancreatitis at that time. Sees GI at [facility], dilated common bile duct. Barb Dickey MD [...] in third trimester 01/1902/13/2017 Overview: Boy on [facility] Nausea/vomiting in 02/08/2016 Overview: February 26, 2016 [...] of this encounter (statuses as of 10/10/2022) [place] History of Past illness Narrative* Problem Noted Date Resolved Date Positive GBS test 10/24/2020 03/27/2021 Overview: 10/22/20- GBS positive. 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 Katia Mireles APRN.CORY Iron malabsorption 06/23/2017 07/23/2017 Iron deficiency anemia 03/20/2017 Overview: 07/05/17 - Patient scheduled to get IV iron on 06/23/17 - [facility] 05/27/17 - getting IV iron, repeat cbc & iron studies in 1 month per - [facility] 05/23/17- heme consult for possible IV iron - Positive serology for syphilis 02/14/2017 0 07/25/2020 Overview: 04/10/17: NEGATIVE 03/21/17 - stable testing, repeat 6 weeks - 02/14/17 - likely false positive as confirmatory [...] of this encounter (statuses as of 10/10/2022) [place] History of Past illness Narrative* Problem Noted [...] in third trimester 01/1902/13/2017 Overview: Boy on [facility] Nausea/vomiting in 02/08/2016 Overview: February 26, 2016 [...] of this encounter (statuses as of 10/15/2022) [place]-06-20[place] History of Past illness Narrative* Problem Noted [...] pancreatitis at that time. Sees GI at [facility], dilated common bile duct. Barb Dickey MD - S/p ERCP 05/16/2016 Pruritus of in second trimester 201505/10/2016 Overview: Ordered bile acids Asymptomatic bacteriuria during in fir st trimester 02/29/2016 02/13/2017 Abnormal laboratory test 02/27/2016 016 Overview: Low Equivocal anticardiolipin antibody - repeat testing beginning of May 2016 Barb Dickye MD Gastroesophageal reflux in 02/26/2016 02/13/2017 Overview: [...] of this encounter (statuses as of 11/01/2022) [place] History of Past illness Narrative* Problem Noted [...] third trimester 01/1902/13/2017 Overview: Boy on - [place] Nausea/vomiting in 02/08/2016 Overview: February 26, 2016 [...] of this encounter (statuses as of 11/03/2022) [place] History of Past illness Narrative* Problem Noted Date Diagnosed Date Resolved Date Positive GBS test 10/24/2020 03/27/2021 Overview: 10/22/20- GBS positive. Two vessel umbilical cord 06/22/2020 Overview: 06/22/20- 19.3 weeks gestation- found on anatomy ultrasound Late care affecting in second trimester 05/12/2020 03/27/2021 Overview: 05/12/20-Presented to [facility] 13w4d. Katia Mireles APRN.CNM Iron malabsorption 06/23/2017 [...] trimester 02/08/2016 02/13/2017 Overview: Boy on - [place] Nausea/vomiting in 02/08/2016 02/13/2017 Overview: February 26, [...] of this encounter (statuses as of 02/07/2023) [place] History of Past illness Narrative* Problem Noted [...] to get IV iron on 06/23/17 - [facility] 05/27/17 - getting IV iron, repeat cbc [...] trimester 02/08/2016 02/13/2017 Overview: Boy on - [place] Nausea/vomiting in 02/08/2016 02/13/2017 Overview: February 26, [...] of this encounter (statuses as of 06/05/2023) [place] History of Past illness Narrative* Problem Noted [...] gallstone pancreatitis 05/06/2016 02/13/2017 Overview: - S/p gilson dominick 2014 had [...] trimester 02/08/2016 02/13/2017 Overview: Boy on - [place] Nausea/vomiting in 02/08/2016 02/13/2017 Overview: February 26, [...] of this encounter (statuses as of 06/25/2023) [place] History of Past illness Narrative* Problem Noted [...] trimester 02/08/2016 02/13/2017 Overview: Boy on - [place] Nausea/vomiting in 02/08/2016 02/13/2017 Overview: February 26, [...] of this encounter (statuses as of 07/04/2023) [place] History of Past illness Narrative* Problem Noted [...] to get IV iron on 06/23/17 - [facility] 05/27/17 - getting IV iron, repeat cbc [...] trimester 02/08/2016 02/13/2017 Overview: Boy on - [place] Nausea/vomiting in 02/08/2016 02/13/2017 Overview: February 26, [...] of this encounter (statuses as of 07/05/2023) [place] Author Rojelio Bullock [facility] November 25, 2023 2:37am Note Date/Time November 25, 2023 12:52a m [facility] Medical Records Department [address] [place] [address] Emergency Department Summary 11/25/23 MR#: [id number] Acct: [id number] Name: MARIANNE SAUCEDO UNRULY Rep #:[id number] [...] diagnosed with croup. [place] No history of asthma. [facility] Medical History depression Home Medications albuterol sulfate [...] of acute cardiopulmonary disease. Electronically Signed: Judson Carter MD at 2:13 EDT Reading Location ID and State: [facility] / [place] , Service support , Discharge Plan Triage Chief Complaint: Cold Sx ED Provider: Rojelio Bullock Dx/Rx/DC Orders Clinical Impression: Acute wheezy bronchitis Instructions: ED Bronchitis with Wheezing (Adult) Prescriptions: New albuterol sulfate [Ventolin HFA] 90 mcg/actuation HFA aerosol inhaler 1 - 2 puff inhalation Q4H PRN PRN (Reason: Wheezing) Qty: 1 0RF Primary Care Provider: Marcelo Barraza PHYSICAL THERAPY DIRECTOR Referrals: Francesca Gill MD [Non-Staff] - What to do if you have Problems For any increased pain, shortness of breath, bleeding, nausea or vomiting, chestpain, or any unexpected problems, contact your Primary Care Provider. Call [facility] ([phone]) or report to the closest Emergency Room. Call 911 if necessary. 11/25/23236 <Electronically signed by Rojelio Bullock MD> Cosigner Signature (if applicable): CC: PHYSICAL THERAPY DIRECTORFabián Barraza ~ Signed [facility] Work Phone: Discharge summary Author Rojelio Bullock [facility] Note Date/Time December 06, 2024 7:39a m [facility] Medical Records Department [address] [place] [address] Emergency Department Summary 12/06/24 MR#: [id number] Acct: [id number] Name: MARIANNE SAUCEDO Rep #:[id number] : 2000 24 From: Rojelio Bullock MD PCP: [facility] Status:REG ER Location: ED ADDENDUM by Dr. Rojelio Bullock MD on 12/06/24 at 0739 COVID/flu/RSV is negative. 12/06/24 0739<Electronically signed by Rojelio Bullock MD> Cosigner Signature (if applicable): cc: PHYSICAL THERAPY DIRECTOR-C Marcelo Barraza ~* Signed HPI History of Present [...] she was wheezing and had chest tightness. [facility] Medical History Physical exam, pre-employment depression Home [...] No evidence of acute disease. Reading Location: [facility] Discharge Plan Triage Chief Complaint: General Illness ED Provider: Rojelio Bullock Dx/Rx/DC Orders Clinical Impression: Acute wheezy bronchitis Instructions: ED Bronchitis with Wheezing (Adult) Prescriptions: Continued albuterol sulfate [Ventolin HFA] 90 mcg/actuation HFA aerosol inhaler 1 - 2 puff inhalation Q4H PRN PRN (Reason: Wheezing) Qty: 1 0RF Primary Care Provider: Marcelo Barraza NP Referrals: Marcelo Barraza NP, PHYSICAL THERAPY DIRECTOR-C [Primary Care Provider] - 1 Week if not improving Print Language: Hungarian Disposition Disposition: Home, Self Care What to do if you have Problems For any increased pain, shortness of breath, bleeding, nausea or vomiting, chestpain, or any unexpected problems, contact your Primary Care Provider. Call [facility] ([phone]) or report to the closest Emergency Room. Call 911 if necessary. 12/06/24 0632 <Electronically signed by Rojelio Bullock MD> Cosigner Signature (if applicable): CC: PHYSICAL THERAPY DIRECTOR-C Marcelo Barraza ~ Signed [facility] Work Phone: Discharge summary Author Denzel Olmstead [facility] Note Date/Time December 15, 2024 6:42a m [facility] Medical Records Department [address] [place] [address] Emergency Department Summary 12/15/24 MR#: [id number] Acct: [id number] Name: DANIELMARIANNE UNRULY Rep #:[id number] : 2000 From: Denzel Mays PCP: ONEIL Hoyos Status:PRE ER Location: ED HPI History of Present Illness Chief Complaint: Cold Sx PFSH PFSH Medical History Physical exam, pre-employment [...] History obtained from others: none Consults: none [facility] Narrative: The patient was initially hemodynamically stable, afebrile and nontoxic- appearing. Exam without focal lung findings. No for consolidative process. Noincreased work of breathing, no green material value added assessor muscle use, no belly breathing. No obvious [...] Discharge home This note was generated with [employer] dictation software. It may contain incorrectwords, spelling, [...] Marcelo Barraza NP Referrals: Marcelo Barraza NP, PHYSICAL THERAPY DIRECTOR-C [Primary Care Provider] - Activity Restrictions/Additional Instructions: [...] for further outpatient evaluationand management. Print Language: Hungarian Disposition Disposition: Home, Self Care What to do if you have Problems For any increased pain, shortness of breath, bleeding, nausea or vomiting, chestpain, or any unexpected problems, contact your Primary Care Provider. Call [facility] ([phone]) or report to the closest Emergency Room. Call 911 if necessary. 12/15/24 0642 <Electronically signed by Denzel Olmstead DO> Cosigner Signature (if applicable): CC: ONEIL Barraza ~ Signed [facility] Work Phone: Discharge summary Author Rojelio Bullock [facility] Note Date/Time February 07, 2025 2:05 am [facility] Medical Records Department [address] [place] [address] Emergency Department Summary 02/07/25 MR#: [id number] Acct: [id number] Name: MARIANNE SAUCEDO UNRULY Rep #:[id number] : 2000 From: Rojelio Bullock MD PCP: Dr. Francesca Gill MD Status:RE G ER Location: ED HPI History of Present Illness Chief Complaint: Chest Pain Informant: patient Narrative Narrative: Patient has been having substernal sharp nonpleuritic nonradiating chest discomfort for the past 10-11 hours. She states she chronically has dyspnea on exertion and feels like she wheezes at times, never formally diagnosed with asthma but she has an inhaler from an episode of bronchitis and states she has used it and it has helped when she has, and does not feel like that has been anyworse or different since she has had this chest discomfort today. The discomfort started while she was sitting at rest this afternoon and is persistedall evening. Not exertional. No arm jaw neck or back pain. No abdominal discomfort or nausea/vomiting. Never had this before which is why she was concerned. No history of blood clots, no leg pain or swelling, no recent immobilization, long travel, hospitalization, or surgery. No recent illness and denies a cough or hemoptysis. [facility] Medical History Physical exam, pre-employment depression Home Medications ?Medication ?Instructions ?Recorded ?Last Taken ?Type pantoprazole 40 mg tablet,delayed 40 mg PO DAILY #14 t abs 02/07/25 Unknown Rx release Allergy/AdvReac Type Severity Reaction Status Date / Time No Known Allergies Allergy Verified 02/07/25 00:45 Surgical History History of surgery Social History Smoking Status: Former smoker ROS ROS ED Constitutional Constitutional ED: Denies chills or fever(s) Eyes Eyes: Denies change in vision or diplopia ENT ENT ED: Denies rhinorrhea or sore throat Cardiovascular Cardiovascular: Reports chest pain; Denies leg edema or palpitations Respiratory/Chest Respiratory/Chest: Reports dyspnea on exertion; Denies cough or dyspnea Gastrointestinal Gastrointestinal: Denies abdominal pain, diarrhea, nausea or vomiting Genitourinary Genitourinary ED: Denies dysuria or hematuria Musculoskeletal Musculoskeletal: Denies back pain or neck pain Integumentary Denies abscess or rash Neurologic Neurologic: Denies headache(s), paresthesias or weakness Psychiatric Psychiatric: Denies anxiety or suicidal thoughts EXAM Physical Exam Const Vital Signs: 02/07/25 00:42 02/07/25 00:43 02/07/25 01:18 Temperature 98.5 F Temperature Source Oral Pulse Rate 79 Respiratory Rate 16 Respiratory Effort Normal Non-Labored Respiratory Pattern Normal Blood Pressure 118/69 Blood Pressure Mean 85 Pulse Ox 97 Oxygen Delivery Method Room Air Room Air Positive well nourished and well developed General Appearance ED: well developed and NAD HEENT Reports moist mucous membranes normocephalic and atraumatic Eyes PERRL and EOMs intact bilaterally Neck full ROM and supple Resp normal respiratory effort and clear to auscultation bilaterally Cardio regular rate, regular rhythm and no murmurs GI non-tender and non-distended Auscultation: normoactive bowel sounds Palpation: soft Back/Spine no CVA tenderness General Back: other FROM Extremity normal to inspection General Extremety ED: Negative for edema, pulses abnormal or tenderness General Extremity: Negative for edema or pulses abnormal Neuro oriented x3, CN's II-XII intact bilaterally and no sensory deficits noted Sensorium / Orientation: awake and alert Motor Exam: strength 5/5 throughout Skin no rashes or lesions noted and no wounds Heart Score History: Slightly/Non-Suspicious ECG: Normal Age: </= 45 years Risk Factors: No Risk Factors Troponin: </= Normal Limit Score: 0 MDM MDM MDM Narrative Medical decision making narrative: Patient's PERC score is 0, her vital signs are normal her exam is benign she does not require further workup in order for us to rule out PE as cause of the symptoms she is reassured, her EKG is normal, I ran labs and did a two-view chest x-ray which my interpretation is normal while we gave her a GI cocktail and monitored her. The GI cocktail helped, her testing is all normal along withtroponin, other blood test except for a mild nonspecific leukocytosis without a left shift. My suspicion is that this is esophageal in nature. I am going to give her a pantoprazole and a prescription for 2-week course and advised that she follow-up with her doctor. She is comfortable with that plan. Lab Data Attestation: I reviewed the patient's lab results. Labs: Laboratory Results - last 24 hr 02/07/25 01:15 WBC 12.2 H RBC 4.18 L Hgb 12.4 Hct 37.7 MCV 90.2 MCH 29.7 MCHC 32.9 RDW Std Deviation 39.6 RDW Coeff of Bairon 12.0 Plt Count 295 MPV 9.9 Immature Gran % (Auto) 0.300 Neut % (Auto) 63.7 Lymph % (Auto) 25.3 [place] % (Auto) 6.4 Eos % (Auto) 3.5 Baso % (Auto) 0.8 Absolute Neuts (auto) 7.8 H Absolute Lymphs (auto) 3.09 Nucleated RBC % 0 Sodium 139 Potassium 3.7 Chloride 105 Carbon Dioxide 21.3 Anion Gap 12 BUN 10 Creatinine 0.70 Estim Creat Clear Calc 141.12 Est GFR (MDRD) Non-Af 122 BUN/Creatinine Ratio 14.4 Glucose 98 Calcium 9.1 Troponin T High Sens < 6 Radiography Diagnostic Testing: Clinical Impression(s) from Imaging Studies Chest X-Ray 02/07/25 01:30 IMPRESSION: No acute chest findings Reading Location: [place] [address] Rhythm Strip Rhythm Strip: Sinus Rhythm Rate: 77 Ectopy: None EKG Initial EKG: Attestation: I personally reviewed and interpreted this EKG as follows: Interpretation: Sinus Rhythm and No Acute Injury Pattern Comments: Nml axis & intervals; nml EKG Discharge Plan Triage Chief Complaint: Chest Pain ED Provider: Rojelio Bullock Dx/Rx/DC Orders Clinical Impression: Chest pain due to GERD Instructions: ED Chest Pain, Noncardiac, ED GERD (Adult) Prescriptions: New pantoprazole 40 mg tablet,delayed release (DR/EC) 40 mg PO DAILY Qty: 14 0RF Primary Care Provider: Francesca Gill Referrals: Francesca Gill MD [Primary Care Provider] - 1 Week if not improving Print Language: Hungarian Disposition Disposition: Home, Self Care What to do if you have Problems For any increased pain, shortness of breath, bleeding, nausea or vomiting, chestpain, or any unexpected problems, contact your Primary Care Provider. Call [facility] ([phone]) or report to the closest Emergency Room. Call 911 if necessary. 02/07/25 0205 <Electronically signed by Rojelio Bullock MD> Cosigner Signature (if applicable): CC: Dr. Francesca Gill MD ~ Signed [facility] Work Phone: Evaluation note* Diagnosis Cough- Primary Viral syndrome Unspecified viral infection, in conditions classified elsewhere and of unspecified site Sore throat Acute pharyngitis Nose congestion Other diseases of nasal cavity and sinuses [facility] Diagnosis Recurrent cold sores- Primary Herpes simplex without mention of complication [facility]* Diagnosis Recurrent cold sores Herpes simplex without mention of complication [facility]* Diagnosis Recurrent cold sores Herpes simplex without mention of complication [facility]* Diagnosis Right wrist pain- Primary Pain in joint, forearm [facility]* Diagnosis Encounter for gynecological examination without abnormal finding- Primary Routine gynecological examination Vaginal odor Unspecified symptom associated with female genital organs Vaginal itching Pruritus of genital organs [facility]* Diagnosis Encounter for counseling regarding contraception- Primary Encounter for IUD insertion Encounter for insertion of intrauterine contraceptive device [facility]* Diagnosis Encounter for IUD insertion- Primary Encounter for insertion of intrauterine contraceptive device [facility]* Diagnosis Blister of lip- Primary [facility] noteNo assessment information availableWSelect [facility] Work Phone: [facility] note* Diagnosis Bronchitis- Primary Bronchitis, not specified as acute or chronic documented in this encounter [facility] note* Diagnosis Rectal bleeding- Primary Hemorrhage of rectum and anus Chronic constipation Unspecified constipation Contact dermatitis, unspecified contact dermatitis type, unspecified trigger documented in this encounter [facility] note* Diagnosis Right wrist pain Pain in joint, forearm documented in this encounter [facility] note* Diagnosis Vaginal discharge- Primary Leukorrhea, not specified as infective Vaginal itching Pruritus of genital organs Vaginal odor Unspecified symptom associated with female genital organs Screening for cervical cancer Screening for malignant neoplasm of the cervix documented in this encounter [facility] note* Diagnosis Iron deficiency anemia, unspecified iron deficiency anemia type- Primary Intractable chronic migraine without aura and without status migrainosus Chronic migraine without aura, with intractable migraine, so stated, without mention of status migrainosus documented in this encounter [facility] note* Diagnosis Intractable chronic migraine without aura and without status migrainosus- Primary Chronic migraine without aura, with intractable migraine, so stated, without mention of status migrainosus documented in this encounter [facility] note* Diagnosis Sore throat- Primary Acute pharyngitis Rhinosinusitis Unspecified sinusitis (chronic) documented in this encounter [facility] note* Diagnosis Environmental allergies- Primary Other allergy, other than to medicinal agents Itchy eyes Other ill-defined disorder of eye Nasal congestion Other diseases of nasal cavity and sinuses Watery eyes Epiphora, unspecified as to cause Encounter for screening examination for other mental health and behavioral disorders Screening for depression documented in this encounter [facility] note* Diagnosis Sore throat- Primary Acute pharyngitis Viral URI with cough Acute upper respiratory infections of unspecified site documented in this encounter [facility] note* Diagnosis Rhinoconjunctivitis- Primary Chronic rhinitis Allergic rhinitis due to mold Seasonal allergic rhinitis due to pollen Adverse food reaction, sequela Poor dentition Unspecified disorder of the teeth and supporting structures documented in this encounter [facility] note* Diagnosis Sore throat- Primary Acute pharyngitis documented in this encounter [facility] note* Diagnosis Diarrhea, unspecified type- Primary Diarrhea, unspecified type documented in this encounter [facility] note* Diagnosis Diarrhea, unspecified type [facility]* Diagnosis Diarrhea, unspecified type- Primary [facility]* Diagnosis Family history of cancer- Primary Family history of unspecified malignant neoplasm documented in this encounter [facility] note* Diagnosis Family history of breast cancer- Primary Family history of malignant neoplasm of breast Family history of adrenal cancer Family history of other specified malignant neoplasm Family history of pancreatic cancer Family history of malignant neoplasm of gastrointestinal tract [facility]* Diagnosis Diarrhea, unspecified type [facility]* Diagnosis Heart burn- Primary Heartburn Diarrhea, unspecified type Nausea Nausea alone [facility]* Diagnosis Gastroesophageal reflux disease without esophagitis- Primary Esophageal reflux Reactive gastropathy documented in this encounter [facility] Discharge instructions Additional Instructions Thank you for [...] care physician for further outpatient evaluation and management.[facility] Work Phone: Reason for referral (narrative)* Diagnostic Procedure Only (Routine) - Closed Specialty Diagnoses / Procedures Referred By Cristiana velez Referred To Contact XR IMAGING Diagnoses Right wrist pain Procedures XR WRIST GENERAL 3V PA/LAT/OBL RIGHT RADEX WRIST COMPLETE MINIMUM 3 VIEWS Sam Osborne APRN.CNP [address] [place] [address] Xr Imaging Referral ID Status Reason Start Date Expiration Date V isits Requested Visits Authorized [id number] Closed Auto-Generate d Referral 10/10/2022 11/09/2023 1 1 [facility] for referral (narrative)* Outpatient Procedure (Routine) - Pending Review Specialty Diagnoses / Procedures Referred By Cristiana velez Referred To Contact [facility] Diagnoses Encounter for IUD insertion Procedures INSERT INTRAUTERINE DEVICE INSERT INTRAUTERINE DEVICE Laura Rea APRN.CNM [address] [place] [address] [address] Referral ID Status Reason Start Date Expiration Date Visits Requested Visits Authorized [id number] Pending Review Auto-Generat ed Referral 06/04/2024 1 1 [facility] for referral (narrative)* Outpatient Procedure (Routine) - Pending Review Specialty Diagnoses / Procedures Referred By Cristiana velez Referred To Contact [facility] Diagnoses Encounter for IUD insertion Procedures INSERT INTRAUTERINE DEVICE LEVONORGESTREL IU 52MG 5 YR INSERT INTRAUTERINE DEVICE Laura Rea APRN.CNM [address] [place] [address] [address] Referral ID Status Reason Start Date Expiration Date Visits Requested Visits Authorized [id number] Pending Review Auto-Generat ed Referral 06/25/2023 06/24/2024 1 1 [facility] for referral (narrative)* Diagnostic Procedure Only (Routine) - Closed Specialty Diagnoses / Procedures Referred By Cristiana velez Referred To Contact XR IMAGING Diagnoses Right wrist pain Procedures XR WRIST GENERAL 3V PA/LAT/OBL RIGHT RADEX WRIST COMPLETE MINIMUM 3 VIEWS Sam Osborne APRN.ROTATING EQUIPMENT SPECIALIST [address] [place] [address] [place] [id number] Referral ID Status Reason Start Date Expiration Date V isits Requested Visits Authorized [id number] Closed Auto-Generate d Referral 10/10/2022 11/09/2023 1 1 [facility] for referral (narrative)No reason for referral information availableWSelect [facility] Work Phone: Reason for visit Narrative* Diagnostic Procedure Only (Routine) - Closed Specialty Diagnoses / Procedures Referred By Contac t Referred To Contact XR IMAGING Diagnoses Right wrist pain Procedures XR WRIST GENERAL 3V PA/LAT/OBL RIGHT RADEX WRIST COMPLETE MINIMUM 3 VIEWS Sam Osborne, JENNIFER.ROTATING EQUIPMENT SPECIALIST [address] [place] [address] [place] [address] Referral ID Status Reason Start Date Expiration Date V isits Requested Visits Authorized [id number] Closed Auto-Generate d Referral 10/10/2022 11/09/2023 1 1 [facility] for visit Narrative* Diagnostic Procedure Only (Urgent) - Closed Specialty Diagnoses / Procedures Referred By Contac t Referred To Contact XR IMAGING Diagnoses Diarrhea, unspecified type Procedures XR ABDOMEN 1V SUPINE RADIOLOGIC EXAM ABDOMEN 1 VIEW Sam Osborne, JENNIFER.ROTATING EQUIPMENT SPECIALIST [address] [place] [id number] Phone: tel: fax: [place] [address] Referral ID Status Reason Start Date Expiration Date V isits Requested Visits Authorized [id number] Closed Auto-Generate d Referral 01/31/2025 03/02/2026 1 1 [facility] for visit Narrative* Consult, Test, Treat (Routine) - Closed Specialty Diagnoses / Procedures Referred By Cristiana t Referred To Contact Diagnoses Family history of cancer Procedures CONSULT TO MEDICAL GENETICS - CANCER MEDICAL GENETICS COUNSELING EACH 30 MINUTES Sam Osborne, JENNIFER.ROTATING EQUIPMENT SPECIALIST [address] [place] [phone] Phone: tel: fax: [facility] [address] [place] [address] Referral ID Status Reason Start Date Expiration Date V isits Requested Visits Authorized [id number] Closed PCP Requested Referral Auto-Generated Referral 02/03/2025 02/03/2026 1 1 [place] Summary Purpose Family History No Family History Records FoundNo Family History Records FoundNo Family History Records FoundNo Family History Records FoundNo Family History Records FoundNo Family History Records Found Advance Directives No Advanced Directives Records FoundDocuments on File Type Date Recorded Patient Rn Circulating Expl anation Advance Directive(s) 10/18/2021 2:27 PM Advance Directive Response Recorded Date/ Time Living Will No November 25, 2023 12 :28am Power of Anesthesia Director No November 25, 2023 12:28am Advance Directive Response Recorded Date/ Time Do you have a Healthcare Power of Anesthesia Director? No December 06, 2024 5:47am Advance Directive Response Recorded Date/ Time Do you have a Healthcare Power of Anesthesia Director? No December 06, 2024 5:47am Do you have a Healthcare Power of Anesthesia Director? No December 15, 2024 6:24am Advance Directive Response Recorded Date/ Time Do you have a Healthcare Power of Anesthesia Director? No December 06, 2024 5:47am Do you have a Healthcare Power of Anesthesia Director? No December 15, 2024 6:24am Do you have a Healthcare Power of Anesthesia Director? No February 07, 2025 12:43am Medications Administered Section Inactive Administered Medications - [...] cold sx December 15, 2024 6:21a m Chief Complaint Admit Date GENERAL ILLNESS December 06, 2024 5:46a m cold sx December 15, 2024 6:21a m cp February 07, 2025 12:4 1am Additional Source Comments INFORMATION SOURCE (unrecogn ized section and content) DATE CREATED AUTHOR 04/13/2019 Myke Leiva [facility] DATE CREATED AUTHOR AUTHOR'S ORGANIZ ATION 04/25/[address] [facility] DATE CREATED AUTHOR AUTHOR'S ORGANIZ ATION 11/09/[address] [facility] DATE CREATED AUTHOR AUTHOR'S ORGANIZ ATION 02/11/2025 [facility] DATE CREATED AUTHOR AUTHOR'S ORGANIZ ATION 03/07/2025 [facility] DATE CREATED AUTHOR AUTHOR'S ORGANIZ ATION 03/13/2025 [facility] Source Comments (unrecognize d section and content) In the event this informatio n is protected by the Federal Confidentiality of Alcohol and Drug Abuse Patient Records regulations: The Federal rules restrict any use of the information to criminally investigate or prosecute any alcohol or drug abuse patient.[place] the event this information is protected by the Federal Confidentiality of Alcohol and Drug Abuse Patient Records regulations: The Federal rules restrict any use of the information to criminally investigate or prosecute any alcohol or drug abuse patient.[place] the event this information is protected by the Federal Confidentiality of Alcohol and Drug Abuse Patient Records regulations: The Federal rules restrict any use of the information to criminally investigate or prosecute any alcohol or drug abuse patient.[place] the event this information is protected by the Federal Confidentiality of Alcohol and Drug Abuse Patient Records regulations: The Federal rules restrict any use of the information to criminally investigate or prosecute any alcohol or drug abuse patient.[place] the event this information is protected by the Federal Confidentiality of Alcohol and Drug Abuse Patient Records regulations: The Federal rules restrict any use of the information to criminally investigate or prosecute any alcohol or drug abuse patient.[place]In the event this information is protected by the Federal Confidentiality of Alcohol and Drug Abuse Patient Records regulations: The Federal rules restrict any use of the information to criminally investigate or prosecute any alcohol or drug abuse patient.[place] the event this information is protected by the Federal Confidentiality of Alcohol and Drug Abuse Patient Records regulations: The Federal rules restrict any use of the information to criminally investigate or prosecute any alcohol or drug abuse patient.[place]In the event this information is protected by the Federal Confidentiality of Alcohol and Drug Abuse Patient Records regulations: The Federal rules restrict any use of the information to criminally investigate or prosecute any alcohol or drug abuse patient.[place]In the event this information is protected by the Federal Confidentiality of Alcohol and Drug Abuse Patient Records regulations: The Federal rules restrict any use of the information to criminally investigate or prosecute any alcohol or drug abuse patient.CentervilleIn the event this information is protected by the Federal Confidentiality of Alcohol and Drug Abuse Patient Records regulations: The Federal rules restrict any use of the information to criminally investigate or prosecute any alcohol or drug abuse patient.CentervilleIn the event this information is protected by the Federal Confidentiality of Alcohol and Drug Abuse Patient Records regulations: The Federal rules restrict any use of the information to criminally investigate or prosecute any alcohol or drug abuse patient.CentervilleIn the event this information is protected by the Federal Confidentiality of Alcohol and Drug Abuse Patient Records regulations: The Federal rules restrict any use of the information to criminally investigate or prosecute any alcohol or drug abuse patient.CentervilleIn the event this information is protected by the Federal Confidentiality of Alcohol and Drug Abuse Patient Records regulations: The Federal rules restrict any use of the information to criminally investigate or prosecute any alcohol or drug abuse patient.CentervilleIn the event this information is protected by the Federal Confidentiality of Alcohol and Drug Abuse Patient Records regulations: The Federal rules restrict any use of the information to criminally investigate or prosecute any alcohol or drug abuse patient.CentervilleIn the event this information is protected by the Federal Confidentiality of Alcohol and Drug Abuse Patient Records regulations: The Federal rules restrict any use of the information to criminally investigate or prosecute any alcohol or drug abuse patient.CentervilleIn the event this information is protected by the Federal Confidentiality of Alcohol and Drug Abuse Patient Records regulations: The Federal rules restrict any use of the information to criminally investigate or prosecute any alcohol or drug abuse patient.CentervilleIn the event this information is protected by the Federal Confidentiality of Alcohol and Drug Abuse Patient Records regulations: The Federal rules restrict any use of the information to criminally investigate or prosecute any alcohol or drug abuse patient.CentervilleIn the event this information is protected by the Federal Confidentiality of Alcohol and Drug Abuse Patient Records regulations: The Federal rules restrict any use of the information to criminally investigate or prosecute any alcohol or drug abuse patient.[place]ervilleIn the event this information is protected by the Federal Confidentiality of Alcohol and Drug Abuse Patient Records regulations: The Federal rules restrict any use of the information to criminally investigate or prosecute any alcohol or drug abuse patient.[place]ervilleIn the event this information is protected by the Federal Confidentiality of Alcohol and Drug Abuse Patient Records regulations: The Federal rules restrict any use of the information to criminally investigate or prosecute any alcohol or drug abuse patient.CentervilleIn the event this information is protected by the Federal Confidentiality of Alcohol and Drug Abuse Patient Records regulations: The Federal rules restrict any use of the information to criminally investigate or prosecute any alcohol or drug abuse patient.CentervilleIn the event this information is protected by the Federal Confidentiality of Alcohol and Drug Abuse Patient Records regulations: The Federal rules restrict any use of the information to criminally investigate or prosecute any alcohol or drug abuse patient.[place]ervilleIn the event this information is protected by the Federal Confidentiality of Alcohol and Drug Abuse Patient Records regulations: The Federal rules restrict any use of the information to criminally investigate or prosecute any alcohol or drug abuse patient.CentervilleIn the event this information is protected by the Federal Confidentiality of Alcohol and Drug Abuse Patient Records regulations: The Federal rules restrict any use of the information to criminally investigate or prosecute any alcohol or drug abuse patient.[place]ervilleIn the event this information is protected by the Federal Confidentiality of Alcohol and Drug Abuse Patient Records regulations: The Federal rules restrict any use of the information to criminally investigate or prosecute any alcohol or drug abuse patient.CentervilleIn the event this information is protected by the Federal Confidentiality of Alcohol and Drug Abuse Patient Records regulations: The Federal rules restrict any use of the information to criminally investigate or prosecute any alcohol or drug abuse patient.CentervilleIn the event this information is protected by the Federal Confidentiality of Alcohol and Drug Abuse Patient Records regulations: The Federal rules restrict any use of the information to criminally investigate or prosecute any alcohol or drug abuse patient.CentervilleIn the event this information is protected by the Federal Confidentiality of Alcohol and Drug Abuse Patient Records regulations: The Federal rules restrict any use of the information to criminally investigate or prosecute any alcohol or drug abuse patient.CentervilleIn the event this information is protected by the Federal Confidentiality of Alcohol and Drug Abuse Patient Records regulations: The Federal rules restrict any use of the information to criminally investigate or prosecute any alcohol or drug abuse patient.CentervilleIn the event this information is protected by the Federal Confidentiality of Alcohol and Drug Abuse Patient Records regulations: The Federal rules restrict any use of the information to criminally investigate or prosecute any alcohol or drug abuse patient.CentervilleIn the event this information is protected by the Federal Confidentiality of Alcohol and Drug Abuse Patient Records regulations: The Federal rules restrict any use of the information to criminally investigate or prosecute any alcohol or drug abuse patient.CentervilleIn the event this information is protected by the Federal Confidentiality of Alcohol and Drug Abuse Patient Records regulations: The Federal rules restrict any use of the information to criminally investigate or prosecute any alcohol or drug abuse patient.[place]ervilleIn the event this information is protected by the Federal Confidentiality of Alcohol and Drug Abuse Patient Records regulations: The Federal rules restrict any use of the information to criminally investigate or prosecute any alcohol or drug abuse patient.[place]ervilleIn the event this information is protected by the Federal Confidentiality of Alcohol and Drug Abuse Patient Records regulations: The Federal rules restrict any use of the information to criminally investigate or prosecute any alcohol or drug abuse patient.CentervilleIn the event this information is protected by the Federal Confidentiality of Alcohol and Drug Abuse Patient Records regulations: The Federal rules restrict any use of the information to criminally investigate or prosecute any alcohol or drug abuse patient.[place]ervilleIn the event this information is protected by the Federal Confidentiality of Alcohol and Drug Abuse Patient Records regulations: The Federal rules restrict any use of the information to criminally investigate or prosecute any alcohol or drug abuse patient.CentervilleIn the event this information is protected by the Federal Confidentiality of Alcohol and Drug Abuse Patient Records regulations: The Federal rules restrict any use of the information to criminally investigate or prosecute any alcohol or drug abuse patient.CentervilleIn the event this information is protected by the Federal Confidentiality of Alcohol and Drug Abuse Patient Records regulations: The Federal rules restrict any use of the information to criminally investigate or prosecute any alcohol or drug abuse patient.Abreu ClinicIn the event this information is protected by the Federal Confidentiality of Alcohol and Drug Abuse Patient Records regulations: The Federal rules restrict any use of the information to criminally investigate or prosecute any alcohol or drug abuse patient.CentervilleIn the event this information is protected by the Federal Confidentiality of Alcohol and Drug Abuse Patient Records regulations: The Federal rules restrict any use of the information to criminally investigate or prosecute any alcohol or drug abuse patient.CentervilleIn the event this information is protected by the Federal Confidentiality of Alcohol and Drug Abuse Patient Records regulations: The Federal rules restrict any use of the information to criminally investigate or prosecute any alcohol or drug abuse patient.[place]ervilleIn the event this information is protected by the Federal Confidentiality of Alcohol and Drug Abuse Patient Records regulations: The Federal rules restrict any use of the information to criminally investigate or prosecute any alcohol or drug abuse patient.[place]ervilleIn the event this information is protected by the Federal Confidentiality of Alcohol and Drug Abuse Patient Records regulations: The Federal rules restrict any use of the information to criminally investigate or prosecute any alcohol or drug abuse patient.[place]ervilleIn the event this information is protected by the Federal Confidentiality of Alcohol and Drug Abuse Patient Records regulations: The Federal rules restrict any use of the information to criminally investigate or prosecute any alcohol or drug abuse patient.CentervilleIn the event this information is protected by the Federal Confidentiality of Alcohol and Drug Abuse Patient Records regulations: The Federal rules restrict any use of the information to criminally investigate or prosecute any alcohol or drug abuse patient.[place] Reason for Visit (unrecogniz ed section and [...] 06/25/2023 Specialty Diagnoses / Procedures Referred By Contac t Referred To Contact [facility] Diagnoses Encounter for IUD insertion Procedures INSERT INTRAUTERINE DEVICE INSERT INTRAUTERINE DEVICE REMOVE INTRAUTERINE DEVICE Laura Rea APRN.CN [address] [address] [facility] [address] [place] [address] Referral ID Status Reason Start Date Expiration Date Visits Requested Visits Authorized [id number] Authorized Auto-Generat ed Referral 3 07/20/2023 2 [...] ies Specialty Diagnoses / Procedures Referred By Contac t Referred To Contact Allergy Diagnoses Environmental allergies Itchy eyes Nasal congestion Watery eyes Procedures CONSULT TO ALLERGY/IMMUNOLOGY OFFICE/OUTPATIENT [facility] 60 MINUTES Francesca Gill MD [address] [place] [address] Phone: tel: fax: Referral ID Status Reason Start Date Expiration Date V isits Requested Visits Authorized [id number] Closed PCP Requested Referral 11/25/2024 11/25/2025 1 1 Reason Comments Nasal Congestion Post nasal drainage causing cough x this am Reason Comments Diarrhea X 2 months Headache X 1 day Reason Comments Radiology US Specialty Diagnoses / Procedures Referred By Contac t Referred To Contact [facility] Diagnoses Diarrhea, unspecified type Procedures US ABD RIGHT UPPER QUADRANT US ABDOMINAL REAL TIME W/IMAGE LIMITED Sam Osborne APRN.ROTATING EQUIPMENT SPECIALIST [address] [place] [address] Phone: tel: fax: [place] [phone] Referral ID Status Reason Start Date Expiration Date V isits Requested Visits Authorized [id number] Closed Auto-Generate d Referral 02/01/2025 03/03/2026 1 1 Reason Comments Diarrhea Sent by PCP for poss ible colonoscopy Specialty Diagnoses / Procedures Referred By Contadela t Referred To Contact General Surgery Diagnoses Diarrhea, unspecified type Procedures CONSULT TO GENERAL SURGERY OFFICE/OUTPATIENT [facility] 60 MINUTES Francesca Gill MD [address] [place] [address] Phone: tel: fax: Referral ID Status Reason Start Date Expiration Date V isits Requested Visits Authorized [id number] Closed PCP Requested Referral 02/08/2025 02/08/2026 1 1 Reason Comments Follow Up EGD/colonoscopy f/u Care Teams (unrecognized sec tion and content) Clerical Associate Relationship Specialty Start Date End Date Francesca Gill MD [address] [place] [address] PCP - General Family Practice 04/10/16 Clerical Associate Relationship Specialty Start Date End Date Francesca Gill MD [address] [place] [address] PCP - General Family Practice 04/10/16 Clerical Associate Relationship Specialty Start Date End Date Francesca Gill MD [address] [place] [address] PCP - General Family Medicine 04/10/16 Clerical Associate Relationship Specialty Start Date End Date Francesca Gill MD [address] [place] [address] PCP - General Family Medicine 04/10/16 Clerical Associate Relationship Specialty Start Date End Date Francesca Gill MD [address] [place] [address] PCP - General Family Medicine 04/10/16 Clerical Associate Relationship Specialty Start Date End Date Francesca Gill MD [address] [place] [address] PCP - General Family Medicine 04/10/16 Clerical Associate Relationship Specialty Start Date End Date Francesca Gill MD [address] [place] [address] PCP - General Family Medicine 04/10/16 Clerical Associate Relationship Specialty Start Date End Date Francesca Gill MD [address] [place] [address] PCP - General Family Medicine 04/10/16 Clerical Associate Relationship Specialty Start Date End Date Francesca Gill MD [address] [place] [address] PCP - General Family Medicine 04/10/16 Clerical Associate Relationship Specialty Start Date End Date Francseca Gill MD [address] [place] [address] PCP - General Family Medicine 04/10/16 Clerical Associate Relationship Specialty Start Date End Date Francesca Gill MD [address] [place] [address] PCP - General Family Medicine 04/10/16 Clerical Associate Relationship Specialty Start Date End Date Francesca Gill MD [address] [place] [address] PCP - General Family Medicine 04/10/16 Clerical Associate Relationship Specialty Start Date End Date Francesca Gill MD [address] [place] [address] PCP - General Family Medicine 04/10/16 Clerical Associate Relationship Specialty Start Date End Date Francesca Gill MD [address] [place] [address] PCP - General Family Medicine 04/10/16 Clerical Associate Relationship Specialty Start Date End Date Francesca Gill MD [address] [place] [address] PCP - General Family Medicine 04/10/16 Team Status: Active Member Role Status Dates Dr. Francesca Gill MD Family Provider Active Marcelo Barraza PHYSICAL THERAPY DIRECTOR, PHYSICAL THERAPY DIRECTOR-C Primary Care Provider Active Team Status: Inactive Member Role Status Dates Dr. Rojelio Bullock MD Emergency Provider Active Marcelo Barraza PHYSICAL THERAPY DIRECTOR, PHYSICAL THERAPY DIRECTOR-C Primary Care Provider Active Clerical Associate Relationship Specialty Start Date End Date Francesca Gill MD [address] [place] [address] PCP - General Family Medicine 04/10/16 Clerical Associate Relationship Specialty Start Date End Date Francesca Gill MD [address] [place] [address] PCP - General Family Medicine 04/10/16 Clerical Associate Relationship Specialty Start Date End Date Francesca Gill MD [address] [place] [address] PCP - General Family Medicine 04/10/16 Clerical Associate Relationship Specialty Start Date End Date Francesca Gill MD [address] [place] [address] PCP - General Family Medicine 04/10/16 Clerical Associate Relationship Specialty Start Date End Date Francesca Gill MD [address] [place] [address] PCP - General Family Medicine 04/10/16 Clerical Associate Relationship Specialty Start Date End Date Francesca Gill MD [address] [place] [address] PCP - General Family Medicine 04/10/16 Clerical Associate Relationship Specialty Start Date End Date Francesca Gill MD [address] [place] [address] PCP - General Family Medicine 04/10/16 Angy Avila APRN.ROTATING EQUIPMENT SPECIALIST [address] [place] [address] [employer] [facility] 06/27/24 Marcelo Barraza APRN.ROTATING EQUIPMENT SPECIALIST [address] [place] [address] [employer] [facility] 07/06/24 Clerical Associate Relationship Specialty Start Date End Date Francesca Gill MD [address] [place] [address] PCP - General Family Medicine 04/10/16 Angy Avila APRN.ROTATING EQUIPMENT SPECIALIST [address] [place] [address] [employer] [facility] 06/27/24 Marcelo Barraza APRN.ROTATING EQUIPMENT SPECIALIST [address] [place] [address] [employer] [facility] 07/06/24 Clerical Associate Relationship Specialty Start Date End Date Francesca Gill MD [address] [place] [address] PCP - General Family Medicine 04/10/16 Angy Avila APRN.ROTATING EQUIPMENT SPECIALIST [address] [place] [address] [employer] [facility] 06/27/24 Marcelo Barraza APRN.ROTATING EQUIPMENT SPECIALIST [address] [place] [address] [facility] Clerical Associate Relationship Specialty Start Date End Date Francesca Gill MD [address] [place] [address] PCP - General Family Medicine 04/10/16 Angy Avila APRN.ROTATING EQUIPMENT SPECIALIST [address] [place] [address] [employer] [facility] 06/27/24 Marcelo Barraza APRN.ROTATING EQUIPMENT SPECIALIST [address] [place] [address] [facility]/06/24 Clerical Associate Relationship Specialty Start Date End Date Francesca Gill MD [address] [place] [address] PCP - General Family Medicine 04/10/16 Marcelo Barraza APRN.ROTATING EQUIPMENT SPECIALIST [address] [place] [address] [facility] 07/06/24 Team Status: Active Member Role Status Dates Marcelo Barraza NP, PHYSICAL THERAPY DIRECTOR-C Primary Care Provider Active Team Status: Inactive Member Role Status Dates Marcelo Barraza NP, PHYSICAL THERAPY DIRECTOR-C Primary Care Provider Active Start: December 06, 2024 End: December 06, 2024 Dr. Rojelio Bullock MD Emergency Provider Active Start: December 06, 2024 End: December 06, 2024 Team Status: Inactive Member Role Status Dates Marcelo Barraza NP, PHYSICAL THERAPY DIRECTOR-C Primary Care Provider Active Start: December 06, 2024 End: December 06, 2024 Dr. Rojelio Bullock MD Attending Provider Active Start: December 06, 2024 End: December 06, 2024 Dr. Rojelio Bullock MD Emergency Provider Active Start: December 06, 2024 End: December 06, 2024 Team Status: Inactive Member Role Status Dates Marcelo Braraza PHYSICAL THERAPY DIRECTOR, PHYSICAL THERAPY DIRECTOR-C Primary Care Provider Active Start: December 15, 2024 End: December 15, 2024 Dr. Denzel Olmstead , DO Emergency Provider Active Start: December 15, 2024 End: December 15, 2024 Clerical Associate Relationship Specialty Start Date End Date Francesca Gill MD [address] [place] [address] PCP - General Family Medicine 04/10/16 Marcelo Barraza APRN.ROTATING EQUIPMENT SPECIALIST [address] [place] [address] [employer] [facility] 07/06/24 Clerical Associate Relationship Specialty Start Date End Date Francesca Gill MD [address] [place] [address] PCP - General Family Medicine 04/10/16 Marcelo Barraza APRN.ROTATING EQUIPMENT SPECIALIST [address] [place] [address] [employer] [facility] 07/06/24 Clerical Associate Relationship Specialty Start Date End Date Francesca Gill MD [address] [place] [address] PCP - General Family Medicine 04/10/16 Marcelo Barraza APRN.ROTATING EQUIPMENT SPECIALIST [address] [place] [address] [employer] [facility] 07/06/24 Clerical Associate Relationship Specialty Start Date End Date Francesca Gill MD [address] [place] [address] PCP - General Family Medicine 04/10/16 Marcelo Barraza APRN.ROTATING EQUIPMENT SPECIALIST [address] [place] [address] [employer] [facility] 07/06/24 Clerical Associate Relationship Specialty Start Date End Date Francesca Gill MD [address] [place] [address] PCP - General Family Medicine 04/10/16 Marcelo Barraza APRN.ROTATING EQUIPMENT SPECIALIST [address] [place] [address] [employer] [facility] 07/06/24 Clerical Associate Relationship Specialty Start Date End Date Francesca Gill MD [address] [place] [address] PCP - General Family Medicine 04/10/16 Marcelo Barraza, SHIP FITTER.ROTATING EQUIPMENT SPECIALIST [address] [place] [address] [employer] [facility] 07/06/24 Clerical Associate Relationship Specialty Start Date End Date Francesca Gill MD [address] [place] [address] PCP - General Family Medicine 04/10/16 Marcelo Barraza SHIP FITTER.ROTATING EQUIPMENT SPECIALIST [address] [place] [address] [employer] [facility] 07/06/24 Clerical Associate Relationship Specialty Start Date End Date Francesca Gill MD [address] [place] [address] PCP - General Family Medicine 04/10/16 Marcelo Barraza APRN.ROTATING EQUIPMENT SPECIALIST [address] [facility], [place] [id number] [employer] [facility] 07/06/24 Clerical Associate Relationship Specialty Start Date End Date Francesca Gill MD [address] [place], [place] [id number] PCP - General [facility] 04/10/16 Marcelo Barraza APRN.ROTATING EQUIPMENT SPECIALIST [address] [place] [address] [employer] [facility] 07/06/24 Team Status: Active Member Role/Relationship Status Dates Dr. Francesca Gill MD Primary Care Provider Active Team Status: Inactive Member Role/Relationship Status Dates Marcelo Barraza PHYSICAL THERAPY DIRECTOR, PHYSICAL THERAPY DIRECTOR-C Primary Care Provider Active Start: December 06, 2024 End: December 06, 2024 Dr. Rojelio Bullock MD Attending Provider Active Start: December 06, 2024 End: December 06, 2024 Dr. Rojelio Bullock MD Emergency Provider Active Start: December 06, 2024 End: December 06, 2024 Team Status: Inactive Member Role/Relationship Status Dates Marcelo Barraza PHYSICAL THERAPY DIRECTOR, PHYSICAL THERAPY DIRECTOR-C Primary Care Provider Active Start: December 15, 2024 End: December 15, 2024 Dr. Denzel Olmstead DO Attending Provider Active Start: December 15, 2024 End: December 15, 2024 Dr. Denzel Olmstead DO Emergency Provider Active Start: December 15, 2024 End: December 15, 2024 Team Status: Inactive Member Role/Relationship Status Dates Dr. Francesca Gill MD Primary Care Provider Active Start: February 07, 2025 End: February 07, 2025 Dr. Rojelio Bullock MD Emergency Provider Active Start: February 07, 2025 End: February 07, 2025 Clerical Associate Relationship Specialty Start Date End Date Francesca Gill MD [address] [facility], [place] [id number] PCP - General Family Medicine 04/10/16 Marcelo Barraza APRN.ROTATING EQUIPMENT SPECIALIST [address] [place], [place] [address] [employer] [facility] 07/06/24 Clerical Associate Relationship Specialty Start Date End Date Francesca Gill MD [address] [place], [place] [address] PCP - [facility] 04/10/16 Marcelo Barraza APRN.ROTATING EQUIPMENT SPECIALIST [address] [place], [place] [address] [facility] 07/06[facility] Clerical Associate Relationship Specialty Start Date End Date Francesca Gill MD [address] [place], [place] [address] PCP - [facility] 04/10/16 Marcelo Barraza APRN.ROTATING EQUIPMENT SPECIALIST [address] [place], [place] [address] [facility] 07/06/24 Goals (unrecognized section and content) Goals [...] BE BASED ON THE PRIMARY CLINICAL RECORDS. [facility] [employer] [facility]. provides no warranty or guarantee of the accuracy or completeness of information in this document.
--- NOTE | 2025-03-17 22:34 | RAD_ITS ---
PROCEDURE: CHEST PA AND LATERAL 03/17/2025 REASON FOR EXAM: COUGH TECHNIQUE: CHEST PA AND LATERAL COMPARISON: 02/07/2025 FINDINGS: Lungs/Pleura: Clear. No focal consolidation, pneumothorax or pleural effusion. Heart/Mediastinum: Normal in size. No vascular congestion. Bones/Soft tissues: Unremarkable. Cholecystectomy surgical clips. RAD/Chest PA and Lateral IMPRESSION: No airspace consolidation or pleural effusion. Reading Location: [id number]
[2025-03-17 23:11] VITALS: BP 118/70; PULSE 92; RESP 16; TEMP 36.3; O2SAT 100
[2025-03-17] MEDS: Albuterol Sulfate 8 gm Inhaler (60 puffs) 2 PUFF INHALATION (23:18)
== END 2025-03-17 23:20 | disposition home or self-care (01) ==
PROVIDERS: Emergency Provider Emergency Medicine; PCP Family Medicine; Visit Provider Emergency Medicine
DX: J40 Bronchitis, not specified as acute or chronic (principal); Z87.891 Personal history of nicotine dependence; Z79.899 Other long term (current) drug therapy
CPT/HCPCS: 71046; 94640; 99282